=== PATIENT | male | born 1965 | race Two or more races ===

== ENCOUNTER 2023-03-05 09:39 | Inpatient (IN) | payer MEDICAID, OTHER ==
[~2023-03-05] VITALS: Ht 182.9 cm; Wt 69.9 kg
[2023-03-05 10:40] LABS: Basophils # (auto) 0.1 10 ^3/uL (0-0.2); Basophils % (auto) 1.2 % (0.0-2.0); Eosinophils # (auto) 0.1 10 ^3/uL (0-0.8); Eosinophils % (auto) 0.8 % (0.0-7.0); Hematocrit 39.9 % (41.0-53.0); Lymphocytes # (auto) 1.6 10 ^3/uL (0.4-5.4); Lymphocytes % (auto) 23.4 % (10.0-50.0); Mean Corpuscular Hemoglobin 29.9 pg (28.0-32.0); Mean Corpuscular Hgb Conc. 32.5 g/dL (32.0-36.0); Mean Corpuscular Volume 91.9 fL (80.0-100.0); Monocytes # (auto) 0.6 10 ^3/uL (0-1.3); Monocytes % (auto) 9.1 % (0.0-12.0); Neutrophils # (auto) 4.6 10 ^3/uL (1.6-8.6); Neutrophils % (auto) 65.5 % (37.0-80.0); Red Blood Cells 4.34 10^6/uL (4.5-5.90); Red Cell Distribution Width 17.3 % (11.8-14.3); White Blood Cell 6.9 10^3/uL (4.4-10.8)
[2023-03-05 11:14] LABS: Alanine Aminotransferase 13 U/L (7-40); Albumin 3.9 g/dL (3.2-4.8); Alkaline Phosphatase 68 U/L (46-116); Aspartate Aminotransferase 9 U/L (13-40); BUN/Creatinine Ratio 4.4 (10.0-20.0); Bilirubin, Total 0.6 mg/dL (0.2-1.0); Blood Urea Nitrogen 46 mg/dL (9-23); Calcium 9.7 mg/dL (8.5-10.1); Carbon Dioxide 28 mmol/L (20-30); Glucose 82 mg/dL (74-106); Total Protein 6.9 g/dL (5.7-8.2)
[2023-03-05 11:29] LABS: Anion Gap 9 (5-15); Chloride 98 mmol/L (98-107); Sodium 135 mmol/L (136-145)
[2023-03-05 13:02] LABS: Potassium 5.6 mmol/L (3.5-5.1)
[2023-03-05] MEDS ORDERED: SODIUM ZIRCONIUM CYCL 10 GM PAK PO ONE (16:00)
[2023-03-05] MEDS ORDERED: MORPHINE SULFATE INJ 2 MG/ml SYRG IV PRN (16:15)
[2023-03-05] MEDS ORDERED: NITROGLYCERIN 0.4 MG SL TAB SL PRN (16:15)
[2023-03-05] MEDS ORDERED: ONDANSETRON HCL 4 MG/2 ML VIAL IV PRN (16:15)
[2023-03-05] MEDS ORDERED: DOCUSATE SOD 100 MG CAP PO PRN (16:15)
[2023-03-05 20:36] LABS: INR 1.11 (0.9-1.15); Partial Thromboplastin Time 27.3 SEC (24.5-34.5); Prothrombin Time 11.6 sec (9.3-11.8)
[2023-03-05 23:25] VITALS: PULSE 65; RESP 20; O2SAT 95
[2023-03-05] MEDS: ATORVASTATIN 20 MG TAB PO SCH (23:31)
[2023-03-05] MEDS: hydrALAZINE HCL 20 MG/ML VL IV PRN (23:32)
[2023-03-06] VITALS (8 sets, daily range): BP systolic 89–157; BP diastolic 73–89; PULSE 61–88; RESP 16–20; TEMP 97.7–98.4; O2SAT 95–100
[2023-03-06 05:45] LABS: Basophils # (auto) 0.1 10 ^3/uL (0-0.2); Basophils % (auto) 1.2 % (0.0-2.0); Eosinophils # (auto) 0.1 10 ^3/uL (0-0.8); Eosinophils % (auto) 0.6 % (0.0-7.0); Hematocrit 39.1 % (41.0-53.0); Hemoglobin 12.8 g/dL (13.5-17.5); Lymphocytes # (auto) 1.6 10 ^3/uL (0.4-5.4); Lymphocytes % (auto) 19.1 % (10.0-50.0); Mean Corpuscular Hemoglobin 29.6 pg (28.0-32.0); Mean Corpuscular Hgb Conc. 32.7 g/dL (32.0-36.0); Mean Corpuscular Volume 90.5 fL (80.0-100.0); Monocytes # (auto) 0.6 10 ^3/uL (0-1.3); Monocytes % (auto) 7.8 % (0.0-12.0); Neutrophils # (auto) 5.9 10 ^3/uL (1.6-8.6); Neutrophils % (auto) 71.3 % (37.0-80.0); Nucleated Red Blood Cells % 0.1 %; Red Blood Cells 4.32 10^6/uL (4.5-5.90); Red Cell Distribution Width 17.3 % (11.8-14.3); White Blood Cell 8.2 10^3/uL (4.4-10.8)
[2023-03-06 05:57] LABS: Albumin 4.3 g/dL (3.2-4.8); Alkaline Phosphatase 70 U/L (46-116); Anion Gap 11 (5-15); Aspartate Aminotransferase 9 U/L (13-40); BUN/Creatinine Ratio 3.9 (10.0-20.0); Blood Urea Nitrogen 46 mg/dL (9-23); Calcium 9.8 mg/dL (8.7-10.4); Carbon Dioxide 25 mmol/L (20-30); Chloride 98 mmol/L (98-107); Glucose 89 mg/dL (74-106); Potassium 4.5 mmol/L (3.5-5.1); Sodium 134 mmol/L (136-145)
[2023-03-06 05:58] LABS: % Iron Saturation 17.5 % (20-55); Bilirubin, Total 0.5 mg/dL (0.2-1.0); Phosphorus 8.1 mg/dL (2.4-5.1); Total Protein 6.9 g/dL (5.7-8.2)
[2023-03-06 06:01] LABS: Alanine Aminotransferase < 9 U/L (7-40)
[2023-03-06 06:26] LABS: Triglycerides 73 mg/dL (< 150)
[2023-03-06 06:27] LABS: LDL Cholesterol 70 mg/dL (< 100)
[2023-03-06 06:28] LABS: Cholesterol 127 mg/dL (< 200); HDL Cholesterol 46 mg/dL (40-59)
[2023-03-06] MEDS ORDERED: SODIUM CHL 0.9% 1000 ML BAG XX ONE (07:15)
[2023-03-06] MEDS: SEVELAMER 800 MG TAB PO SCH ×3 (08:38→17:40)
[2023-03-06] MEDS: PANTOPRAZOLE 40 MG TAB PO SCH (09:51)
[2023-03-06] MEDS: ASPirin-EC 81 mg tab PO SCH (09:52)
[2023-03-06] MEDS: CLOPIDOGREL BISULFATE 75 MG TAB PO SCH (09:52)
[2023-03-06] MEDS: ATORVASTATIN 20 MG TAB PO SCH (21:11)
[2023-03-07] VITALS (7 sets, daily range): BP systolic 111–175; BP diastolic 78–105; PULSE 60–97; RESP 17–20; TEMP 36.8; O2SAT 97–100
[2023-03-07] MEDS: hydrALAZINE HCL 20 MG/ML VL IV PRN (03:56)
[2023-03-07 06:00] LABS: Basophils # (auto) 0.1 10 ^3/uL (0-0.2); Basophils % (auto) 0.8 % (0.0-2.0); Eosinophils # (auto) 0.1 10 ^3/uL (0-0.8); Eosinophils % (auto) 0.9 % (0.0-7.0); Hematocrit 41.7 % (41.0-53.0); Hemoglobin 13.4 g/dL (13.5-17.5); Lymphocytes # (auto) 1.5 10 ^3/uL (0.4-5.4); Lymphocytes % (auto) 20.2 % (10.0-50.0); Mean Corpuscular Hemoglobin 29.4 pg (28.0-32.0); Mean Corpuscular Hgb Conc. 32.2 g/dL (32.0-36.0); Mean Corpuscular Volume 91.3 fL (80.0-100.0); Monocytes # (auto) 0.7 10 ^3/uL (0-1.3); Monocytes % (auto) 8.9 % (0.0-12.0); Neutrophils # (auto) 5.2 10 ^3/uL (1.6-8.6); Neutrophils % (auto) 69.2 % (37.0-80.0); Red Blood Cells 4.56 10^6/uL (4.5-5.90); Red Cell Distribution Width 17.3 % (11.8-14.3); White Blood Cell 7.5 10^3/uL (4.4-10.8)
[2023-03-07 06:19] LABS: Anion Gap 12 (5-15); Calcium 10.1 mg/dL (8.7-10.4); Carbon Dioxide 25 mmol/L (20-30); Chloride 99 mmol/L (98-107); Potassium 4.6 mmol/L (3.5-5.1); Sodium 136 mmol/L (136-145)
[2023-03-07 06:24] LABS: Glucose 89 mg/dL (74-106)
[2023-03-07 06:25] LABS: BUN/Creatinine Ratio 3.4 (10.0-20.0); Magnesium 2.5 mg/dL (1.6-2.6)
[2023-03-07 06:27] LABS: Phosphorus 6.5 mg/dL (2.4-5.1)
[2023-03-07 07:03] LABS: Blood Urea Nitrogen 35 mg/dL (9-23)
[2023-03-07] MEDS: SEVELAMER 800 MG TAB PO SCH ×3 (08:12→17:22)
[2023-03-07] MEDS: PANTOPRAZOLE 40 MG TAB PO SCH (09:30)
[2023-03-07] MEDS: ASPirin-EC 81 mg tab PO SCH (09:30)
[2023-03-07] MEDS: CLOPIDOGREL BISULFATE 75 MG TAB PO SCH (09:30)
[2023-03-07 12:10] LABS: Hepatitis B Surface Antigen Negative (Negative)
[2023-03-07 12:30] LABS: Hepatitis A Ab IgM Negative
[2023-03-07] MEDS ORDERED: NIFEdipine ER 30 MG TAB PO ONE (12:30)
[2023-03-07 12:33] LABS: Hepatitis B Core IgM Negative
[2023-03-07 13:17] LABS: Hepatitis C Antibody Reactive (Negative)
[2023-03-07] MEDS: LOSARTAN POTASSIUM 50 MG TAB PO SCH (15:00)
[2023-03-07] MEDS: ATORVASTATIN 20 MG TAB PO SCH (22:18)
[2023-03-08 05:27] LABS: Basophils # (auto) 0.1 10 ^3/uL (0-0.2); Basophils % (auto) 0.8 % (0.0-2.0); Eosinophils # (auto) 0.1 10 ^3/uL (0-0.8); Eosinophils % (auto) 1.4 % (0.0-7.0); Hematocrit 39.6 % (41.0-53.0); Lymphocytes # (auto) 1.5 10 ^3/uL (0.4-5.4); Lymphocytes % (auto) 22.7 % (10.0-50.0); Mean Corpuscular Hemoglobin 29.7 pg (28.0-32.0); Mean Corpuscular Hgb Conc. 32.9 g/dL (32.0-36.0); Mean Corpuscular Volume 90.2 fL (80.0-100.0); Monocytes # (auto) 0.6 10 ^3/uL (0-1.3); Neutrophils # (auto) 4.2 10 ^3/uL (1.6-8.6); Neutrophils % (auto) 65.1 % (37.0-80.0); Red Blood Cells 4.39 10^6/uL (4.5-5.90); White Blood Cell 6.4 10^3/uL (4.4-10.8)
[2023-03-08 05:42] LABS: Anion Gap 10 (5-15); Carbon Dioxide 27 mmol/L (20-30); Chloride 98 mmol/L (98-107); Potassium 4.6 mmol/L (3.5-5.1); Sodium 135 mmol/L (136-145)
[2023-03-08 05:43] LABS: Calcium 9.8 mg/dL (8.7-10.4)
[2023-03-08 05:47] VITALS: BP 127/71; PULSE 61; RESP 18; TEMP 98.2; O2SAT 96
[2023-03-08 05:48] LABS: BUN/Creatinine Ratio 3.9 (10.0-20.0); Glucose 84 mg/dL (74-106); Magnesium 2.6 mg/dL (1.6-2.6)
[2023-03-08 05:50] LABS: Phosphorus 6.8 mg/dL (2.4-5.1)
[2023-03-08 06:44] LABS: Blood Urea Nitrogen 48 mg/dL (9-23)
[2023-03-08] MEDS ORDERED: SODIUM CHL 0.9% 1000 ML BAG XX ONE (07:00)
[2023-03-08] MEDS ORDERED: SEVE800T PO (07:19)
[2023-03-08] MEDS: SEVELAMER 800 MG TAB PO SCH ×3 (07:50→17:57)
[2023-03-08 08:00] VITALS: PULSE 67; RESP 18; O2SAT 94
[2023-03-08] MEDS: ASPirin-EC 81 mg tab PO SCH (08:57)
[2023-03-08] MEDS: CLOPIDOGREL BISULFATE 75 MG TAB PO SCH (08:58)
[2023-03-08] MEDS: NIFEdipine ER 30 MG TAB PO SCH (08:58)
[2023-03-08] MEDS: LOSARTAN POTASSIUM 50 MG TAB PO SCH (08:59)
[2023-03-08] MEDS: PANTOPRAZOLE 40 MG TAB PO SCH (08:59)
[2023-03-08 09:00] VITALS: BP 141/87; PULSE 67; RESP 18; TEMP 97.8; O2SAT 94
[2023-03-08 13:00] VITALS: BP 149/90; PULSE 60; RESP 18; TEMP 97.8; O2SAT 96
[2023-03-08 17:00] VITALS: BP 155/94; PULSE 72; RESP 16; TEMP 98; O2SAT 99
[2023-03-08] MEDS: hydrALAZINE HCL 20 MG/ML VL IV PRN (18:24)
[2023-03-08 20:00] VITALS: BP 133/76; PULSE 77; RESP 20; TEMP 98.6; O2SAT 98
[2023-03-08] MEDS: ATORVASTATIN 20 MG TAB PO SCH (21:32)
[2023-03-09 05:18] VITALS: BP 142/80; PULSE 81; RESP 16; TEMP 97.6; O2SAT 98
[2023-03-09 05:26] LABS: Basophils # (auto) 0.1 10 ^3/uL (0-0.2); Basophils % (auto) 0.8 % (0.0-2.0); Eosinophils # (auto) 0.1 10 ^3/uL (0-0.8); Eosinophils % (auto) 1.4 % (0.0-7.0); Hematocrit 41.8 % (41.0-53.0); Hemoglobin 13.8 g/dL (13.5-17.5); Lymphocytes # (auto) 1.3 10 ^3/uL (0.4-5.4); Lymphocytes % (auto) 18.5 % (10.0-50.0); Mean Corpuscular Hemoglobin 29.7 pg (28.0-32.0); Mean Corpuscular Hgb Conc. 33.1 g/dL (32.0-36.0); Mean Corpuscular Volume 89.9 fL (80.0-100.0); Monocytes # (auto) 0.6 10 ^3/uL (0-1.3); Monocytes % (auto) 8.7 % (0.0-12.0); Neutrophils # (auto) 4.8 10 ^3/uL (1.6-8.6); Neutrophils % (auto) 70.6 % (37.0-80.0); Red Blood Cells 4.64 10^6/uL (4.5-5.90); Red Cell Distribution Width 17.1 % (11.8-14.3); White Blood Cell 6.8 10^3/uL (4.4-10.8)
[2023-03-09 05:32] LABS: Chloride 98 mmol/L (98-107); Potassium 5.2 mmol/L (3.5-5.1); Sodium 134 mmol/L (136-145)
[2023-03-09 05:33] LABS: Anion Gap 11 (5-15); Calcium 9.7 mg/dL (8.7-10.4); Carbon Dioxide 25 mmol/L (20-30)
[2023-03-09 05:38] LABS: BUN/Creatinine Ratio 3.8 (10.0-20.0); Blood Urea Nitrogen 54 mg/dL (9-23); Glucose 84 mg/dL (74-106)
[2023-03-09 05:39] LABS: Magnesium 2.7 mg/dL (1.6-2.6)
[2023-03-09 05:40] LABS: Phosphorus 6.8 mg/dL (2.4-5.1)
[2023-03-09 08:00] VITALS: BP 135/83; PULSE 75; RESP 19; TEMP 97.4; O2SAT 96
[2023-03-09] MEDS: SEVELAMER 800 MG TAB PO SCH ×2 (08:00→12:59)
[2023-03-09 09:00] VITALS: BP 135/83; PULSE 75; RESP 19; TEMP 97.4; O2SAT 96
[2023-03-09] MEDS: LOSARTAN POTASSIUM 50 MG TAB PO SCH ×2 (10:00→16:01)
[2023-03-09] MEDS ORDERED: CLOP75TA70 PO (10:30)
[2023-03-09] MEDS ORDERED: LOSA50TA46 PO (10:30)
[2023-03-09] MEDS ORDERED: ASPI-543 PO (10:30)
[2023-03-09] MEDS ORDERED: ATO40T PO (10:30)
[2023-03-09] MEDS ORDERED: NIFE1TAB30 PO (10:30)
[2023-03-09] MEDS ORDERED: SEVE800T PO (10:30)
[2023-03-09] MEDS: CLOPIDOGREL BISULFATE 75 MG TAB PO SCH (12:58)
[2023-03-09] MEDS: ASPirin-EC 81 mg tab PO SCH (12:59)
[2023-03-09] MEDS: PANTOPRAZOLE 40 MG TAB PO SCH (12:59)
[2023-03-09] MEDS: NIFEdipine ER 30 MG TAB PO SCH (12:59)
[2023-03-09 13:00] VITALS: BP 158/101; PULSE 86
[2023-03-09 13:22] VITALS: BP 158/101; TEMP 36.4
[2023-03-09 14:52] LABS: Chloride 100 mmol/L (98-107); Potassium 4.2 mmol/L (3.5-5.1); Sodium 138 mmol/L (136-145)
[2023-03-09 14:53] LABS: Anion Gap 8 (5-15); Carbon Dioxide 30 mmol/L (20-30)
[2023-03-09 14:54] LABS: Calcium 10.1 mg/dL (8.7-10.4)
[2023-03-09 14:58] LABS: Glucose 95 mg/dL (74-106)
[2023-03-09 14:59] LABS: BUN/Creatinine Ratio 3.1 (10.0-20.0); Blood Urea Nitrogen 29 mg/dL (9-23)
[2023-03-09 16:30] VITALS: BP 153/95; PULSE 78
== END 2023-03-09 17:16 | disposition home or self-care (01) | DRG 425 ==
LOC: ER 09:39 → TELE 16:24 → TELE-CENTR 03-06 10:26 → UNDODISIN 03-07 11:06 → CENTRAL 03-07 11:50
PROVIDERS: ADMIT Internal Medicine; ATTEND Student in an Organized Health Care Education/Training Program
PROC: 5A1D70Z Performance of Urinary Filtration, Intermittent, Less than 6 Hours Per Day (ICD-10-PCS; principal; 2023-03-06)
PROC: 5A1D70Z Performance of Urinary Filtration, Intermittent, Less than 6 Hours Per Day (ICD-10-PCS; 2023-03-08)
DX: E87.5 Hyperkalemia (principal); N17.9 Acute kidney failure, unspecified; E83.39 Other disorders of phosphorus metabolism; I12.0 Hypertensive chronic kidney disease with stage 5 chronic kidney disease or end stage renal disease; N18.6 End stage renal disease; B19.20 Unspecified viral hepatitis C without hepatic coma; K59.00 Constipation, unspecified; H54.62 Unqualified visual loss, left eye, normal vision right eye; Z60.2 Problems related to living alone; Z99.2 Dependence on renal dialysis; Z91.199 Patient's noncompliance with other medical treatment and regimen due to unspecified reason; Z86.73 Personal history of transient ischemic attack (TIA), and cerebral infarction without residual deficits
CPT/HCPCS: 36415; 71045; 80048; 80053; 80061; 80074; 82728; 83036; 83540; 83550; 83735; 83970; 84100; 84443; 84484; 85025; 85610; 85730; 87081; 90935; G0378

== ENCOUNTER 2023-05-14 09:43 | Inpatient (IN) | payer MEDICAID ==
[~2023-05-14] VITALS: Ht 182.9 cm; Wt 74.0 kg
[2023-05-14] VITALS (11 sets, daily range): BP systolic 105–138; BP diastolic 61–79; PULSE 75–91; RESP 14–20; TEMP 98–98.5; O2SAT 96–98
[~2023-05-14 09:43] MED LIST: ASPI-543 PO; ATO40T PO; CLOP75TA70 PO; LOSA50TA46 PO; NIFE1TAB30 PO; SEVE800T PO
[2023-05-14] MEDS ORDERED: PANTOPRAZOLE 40 MG/10 ML VIAL INJ IV ONE ×2 (11:00→14:15)
[2023-05-14] MEDS ORDERED: SODIUM CHLORIDE 0.9% 1,000 ML IV ONE (11:00)
[2023-05-14 11:01] LABS: White Blood Cell 6.9 10^3/uL (4.4-10.8)
[2023-05-14 11:02] LABS: Mean Corpuscular Hgb Conc. 32.2 g/dL (32.0-36.0)
[2023-05-14 11:20] LABS: Basophils # (auto) 0 10 ^3/uL (0-0.2); Basophils % (auto) 0.7 % (0.0-2.0); Eosinophils # (auto) 0.1 10 ^3/uL (0-0.8); Eosinophils % (auto) 0.8 % (0.0-7.0); Hematocrit 16.8 % (41.0-53.0); Lymphocytes # (auto) 0.9 10 ^3/uL (0.4-5.4); Lymphocytes % (auto) 13.6 % (10.0-50.0); Mean Corpuscular Hemoglobin 29.1 pg (28.0-32.0); Mean Corpuscular Volume 90.3 fL (80.0-100.0); Monocytes # (auto) 0.6 10 ^3/uL (0-1.3); Monocytes % (auto) 8.2 % (0.0-12.0); Neutrophils # (auto) 5.3 10 ^3/uL (1.6-8.6); Neutrophils % (auto) 76.7 % (37.0-80.0); Red Blood Cells 1.86 10^6/uL (4.5-5.90); Red Cell Distribution Width 16.1 % (11.8-14.3)
[2023-05-14 11:24] LABS: Albumin 3.7 g/dL (3.2-4.8); Alkaline Phosphatase 83 U/L (46-116); Anion Gap 6 (5-15); Aspartate Aminotransferase < 8 U/L (13-40); BUN/Creatinine Ratio 5.8 (10.0-20.0); Blood Urea Nitrogen 36 mg/dL (9-23); Calcium 9.1 mg/dL (8.7-10.4); Carbon Dioxide 31 mmol/L (20-30); Chloride 103 mmol/L (98-107); Glucose 96 mg/dL (74-106); Potassium 4.8 mmol/L (3.5-5.1); Sodium 140 mmol/L (136-145)
[2023-05-14 11:25] LABS: Alanine Aminotransferase < 9 U/L (7-40); Bilirubin, Total 0.5 mg/dL (0.2-1.0); Total Protein 6.2 g/dL (5.7-8.2)
[2023-05-14 11:33] LABS: Hemoglobin 5.4 g/dL (13.5-17.5)
[2023-05-14 12:03] LABS: INR 1.09 (0.9-1.15); Partial Thromboplastin Time 22.7 SEC (24.5-34.5); Prothrombin Time 11.4 sec (9.3-11.8)
[2023-05-14] MEDS ORDERED: MORPHINE SULFATE INJ 2 MG/ml SYRG IV PRN (14:15)
[2023-05-14] MEDS ORDERED: PANTOPRAZOLE 40mg/50ML NS AE 50 ML IV ONE (14:15)
[2023-05-14] MEDS ORDERED: ONDANSETRON HCL 4 MG/2 ML VIAL IV PRN (14:15)
[2023-05-14] MEDS: SEVELAMER 800 MG TAB PO SCH (17:57)
[2023-05-14] MEDS ORDERED: PATIENTS OWN MEDICATION (Atorvastatin Calcium (Lipitor) 1 TAB) PO SCH (18:00)
[2023-05-14] MEDS: ATORVASTATIN 20 MG TAB PO SCH (22:21)
[2023-05-14] MEDS: PANTOPRAZOLE 40mg/50ML NS AE 50 ML IV SCH ×2 (23:17→23:18)
[2023-05-15] VITALS (17 sets, daily range): BP systolic 117–146; BP diastolic 50–96; PULSE 63–77; RESP 14–98; TEMP 97.4–98.6; O2SAT 95–100
[2023-05-15 02:40] LABS: Hematocrit 25.3 % (41.0-53.0); Hemoglobin 8.3 g/dL (13.5-17.5)
[2023-05-15] MEDS: PANTOPRAZOLE 40mg/50ML NS AE 50 ML IV SCH ×2 (04:48→09:27)
[2023-05-15 07:27] LABS: Basophils # (auto) 0 10 ^3/uL (0-0.2); Basophils % (auto) 0.7 % (0.0-2.0); Eosinophils # (auto) 0.1 10 ^3/uL (0-0.8); Eosinophils % (auto) 2.5 % (0.0-7.0); Hematocrit 22.2 % (41.0-53.0); Hemoglobin 7.4 g/dL (13.5-17.5); Lymphocytes % (auto) 18.7 % (10.0-50.0); Mean Corpuscular Hemoglobin 29.5 pg (28.0-32.0); Mean Corpuscular Hgb Conc. 33.3 g/dL (32.0-36.0); Mean Corpuscular Volume 88.8 fL (80.0-100.0); Monocytes # (auto) 0.5 10 ^3/uL (0-1.3); Monocytes % (auto) 10.1 % (0.0-12.0); Neutrophils # (auto) 3.5 10 ^3/uL (1.6-8.6); Red Cell Distribution Width 14.7 % (11.8-14.3); White Blood Cell 5.1 10^3/uL (4.4-10.8)
[2023-05-15 07:41] LABS: Albumin 3.5 g/dL (3.2-4.8); Alkaline Phosphatase 82 U/L (46-116); Anion Gap 8 (5-15); Aspartate Aminotransferase 14 U/L (13-40); BUN/Creatinine Ratio 6.3 (10.0-20.0); Calcium 9.7 mg/dL (8.5-10.1); Carbon Dioxide 28 mmol/L (20-30); Chloride 104 mmol/L (98-107); Glucose 82 mg/dL (74-106); Potassium 5.1 mmol/L (3.5-5.1); Sodium 140 mmol/L (136-145)
[2023-05-15 07:42] LABS: Bilirubin, Total 1.1 mg/dL (0.2-1.0); Total Protein 5.7 g/dL (5.7-8.2)
[2023-05-15 07:45] LABS: Alanine Aminotransferase < 9 U/L (7-40); Blood Urea Nitrogen 49 mg/dL (9-23)
[2023-05-15] MEDS: SEVELAMER 800 MG TAB PO SCH ×3 (08:00→18:47)
[2023-05-15] MEDS ORDERED: SODIUM CHLORIDE LOCK 10 ML ONE (09:19)
[2023-05-15] MEDS ORDERED: MIDAZOLAM HCL 5 MG/ML-1ML VIAL ONE (09:19)
[2023-05-15] MEDS ORDERED: LIDOCAINE VISCOUS 2% 15ML UD ONE (09:19)
[2023-05-15] MEDS ORDERED: fentaNYL CITRATE 100 MCG/2 ML VL ONE (09:20)
[2023-05-15] MEDS ORDERED: diphenhdrAMINE HCL 50 MG/1 ML VL ONE (09:20)
[2023-05-15] MEDS ORDERED: CINA30TA2 PO (09:36)
[2023-05-15] MEDS ORDERED: POTA10TA51 PO (09:36)
[2023-05-15] MEDS ORDERED: PATIENTS OWN MEDICATION (Nifedipine (Nifedipine Er) 1 TAB) PO SCH (10:00)
[2023-05-15] MEDS ORDERED: LOSARTAN POTASSIUM 50 MG TAB PO SCH (10:00)
[2023-05-15] MEDS ORDERED: hydrALAZINE HCL 20 MG/ML VL IV PRN (11:00)
[2023-05-15] MEDS ORDERED: SODIUM CHL 0.9% 1000 ML BAG XX ONE (12:15)
[2023-05-15 12:53] LABS: Hemoglobin 7.2 g/dL (13.5-17.5)
[2023-05-15 12:57] LABS: Hematocrit 21.7 % (41.0-53.0)
[2023-05-15 19:23] LABS: Hematocrit 26.4 % (41.0-53.0); Hemoglobin 8.9 g/dL (13.5-17.5)
[2023-05-15] MEDS: ATORVASTATIN 20 MG TAB PO SCH (20:56)
[2023-05-15] MEDS ORDERED: EPOETIN ALFA-EPBX 10,000 UNIT/1ML VIAL SC ONE (21:00)
[2023-05-16] VITALS (7 sets, daily range): BP systolic 120–148; BP diastolic 65–85; PULSE 65–78; RESP 16–20; TEMP 97.9–98.8; O2SAT 96–100
[2023-05-16 05:45] LABS: Basophils # (auto) 0.1 10 ^3/uL (0-0.2); Basophils % (auto) 0.9 % (0.0-2.0); Eosinophils # (auto) 0.1 10 ^3/uL (0-0.8); Hematocrit 28.1 % (41.0-53.0); Hemoglobin 9.4 g/dL (13.5-17.5); Lymphocytes # (auto) 0.9 10 ^3/uL (0.4-5.4); Lymphocytes % (auto) 14.3 % (10.0-50.0); Mean Corpuscular Hemoglobin 30.4 pg (28.0-32.0); Mean Corpuscular Hgb Conc. 33.4 g/dL (32.0-36.0); Mean Corpuscular Volume 91.2 fL (80.0-100.0); Monocytes # (auto) 0.5 10 ^3/uL (0-1.3); Monocytes % (auto) 8.4 % (0.0-12.0); Neutrophils # (auto) 4.5 10 ^3/uL (1.6-8.6); Neutrophils % (auto) 74.4 % (37.0-80.0); Nucleated Red Blood Cells % 0.1 %; Red Blood Cells 3.09 10^6/uL (4.5-5.90); Red Cell Distribution Width 15.4 % (11.8-14.3); White Blood Cell 6.1 10^3/uL (4.4-10.8)
[2023-05-16 06:00] LABS: INR 1.11 (0.9-1.15); Partial Thromboplastin Time 21.5 SEC (24.5-34.5); Prothrombin Time 11.6 sec (9.3-11.8)
[2023-05-16 06:02] LABS: Albumin 3.5 g/dL (3.2-4.8); Alkaline Phosphatase 87 U/L (46-116); Anion Gap 8 (5-15); Aspartate Aminotransferase 10 U/L (13-40); BUN/Creatinine Ratio 4.8 (10.0-20.0); Bilirubin, Total 1.5 mg/dL (0.2-1.0); Calcium 9.5 mg/dL (8.5-10.1); Carbon Dioxide 31 mmol/L (20-30); Chloride 102 mmol/L (98-107); Glucose 89 mg/dL (74-106); Potassium 4.5 mmol/L (3.5-5.1); Sodium 141 mmol/L (136-145); Total Protein 5.9 g/dL (5.7-8.2)
[2023-05-16 06:26] LABS: Alanine Aminotransferase < 9 U/L (7-40); Blood Urea Nitrogen 30 mg/dL (9-23)
[2023-05-16] MEDS: SEVELAMER 800 MG TAB PO SCH ×3 (08:04→18:54)
[2023-05-16] MEDS: PANTOPRAZOLE 40 MG TAB PO SCH (10:20)
[2023-05-16] MEDS: ATORVASTATIN 20 MG TAB PO SCH (21:29)
[2023-05-17 05:00] VITALS: BP 144/99; PULSE 70; RESP 18; TEMP 97.7; O2SAT 96
[2023-05-17] MEDS ORDERED: SODIUM CHL 0.9% 1000 ML BAG XX ONE (07:00)
[2023-05-17] MEDS: SEVELAMER 800 MG TAB PO SCH ×3 (07:56→18:49)
[2023-05-17 08:00] VITALS: PULSE 59
[2023-05-17 08:02] VITALS: PULSE 74; RESP 16
[2023-05-17 08:59] VITALS: BP 121/70; PULSE 88; RESP 18; TEMP 98.4; O2SAT 95
[2023-05-17 10:44] LABS: Basophils # (auto) 0.1 10 ^3/uL (0-0.2); Basophils % (auto) 0.9 % (0.0-2.0); Eosinophils # (auto) 0.2 10 ^3/uL (0-0.8); Eosinophils % (auto) 2.8 % (0.0-7.0); Hemoglobin 9.1 g/dL (13.5-17.5); Lymphocytes % (auto) 15.9 % (10.0-50.0); Mean Corpuscular Hemoglobin 29.7 pg (28.0-32.0); Mean Corpuscular Hgb Conc. 32.4 g/dL (32.0-36.0); Mean Corpuscular Volume 91.5 fL (80.0-100.0); Monocytes # (auto) 0.6 10 ^3/uL (0-1.3); Monocytes % (auto) 9.1 % (0.0-12.0); Neutrophils # (auto) 4.5 10 ^3/uL (1.6-8.6); Neutrophils % (auto) 71.3 % (37.0-80.0); Nucleated Red Blood Cells % 0.1 %; Red Blood Cells 3.06 10^6/uL (4.5-5.90); White Blood Cell 6.3 10^3/uL (4.4-10.8)
[2023-05-17 10:56] LABS: Calcium 8.9 mg/dL (8.5-10.1); Chloride 100 mmol/L (98-107); Potassium 4.3 mmol/L (3.5-5.1); Sodium 138 mmol/L (136-145)
[2023-05-17 10:57] LABS: Anion Gap 8 (5-15); Carbon Dioxide 30 mmol/L (20-30)
[2023-05-17 11:02] LABS: BUN/Creatinine Ratio 3.9 (10.0-20.0); Blood Urea Nitrogen 34 mg/dL (9-23); Glucose 91 mg/dL (74-106)
[2023-05-17] MEDS: PANTOPRAZOLE 40 MG TAB PO SCH (12:01)
[2023-05-17 13:28] VITALS: BP 139/75; PULSE 72; RESP 19; TEMP 98; O2SAT 95
[2023-05-17 16:48] VITALS: BP 150/78; PULSE 69; RESP 18; TEMP 97.7; O2SAT 96
[2023-05-17] MEDS ORDERED: PANT40TA2 PO ×2 (18:11→18:37)
[2023-05-17] MEDS ORDERED: FER325T PO (18:37)
[2023-05-17] MEDS ORDERED: EPOETIN ALFA-EPBX 10,000 UNIT/1ML VIAL SC ONE (21:00)
== END 2023-05-17 19:58 | disposition home or self-care (01) | DRG 241 ==
LOC: ER 09:43 → TELE 14:13 → TELE-WESTW 05-15 08:28
PROVIDERS: ADMIT Nurse Practitioner Family; ATTEND Internal Medicine
PROC: 30233N1 Transfusion of Nonautologous Red Blood Cells into Peripheral Vein, Percutaneous Approach (ICD-10-PCS; 2023-05-14)
PROC: 0DB68ZX Excision of Stomach, Via Natural or Artificial Opening Endoscopic, Diagnostic (ICD-10-PCS; 2023-05-15)
PROC: 0DB48ZX Excision of Esophagogastric Junction, Via Natural or Artificial Opening Endoscopic, Diagnostic (ICD-10-PCS; 2023-05-15)
PROC: 30233K1 Transfusion of Nonautologous Frozen Plasma into Peripheral Vein, Percutaneous Approach (ICD-10-PCS; 2023-05-15)
PROC: 5A1D70Z Performance of Urinary Filtration, Intermittent, Less than 6 Hours Per Day (ICD-10-PCS; 2023-05-15)
PROC: 0DB98ZX Excision of Duodenum, Via Natural or Artificial Opening Endoscopic, Diagnostic (ICD-10-PCS; principal; 2023-05-15 16:12)
PROC: 5A1D70Z Performance of Urinary Filtration, Intermittent, Less than 6 Hours Per Day (ICD-10-PCS; 2023-05-17)
DX: K29.71 Gastritis, unspecified, with bleeding (principal); I12.0 Hypertensive chronic kidney disease with stage 5 chronic kidney disease or end stage renal disease; D62 Acute posthemorrhagic anemia; E11.22 Type 2 diabetes mellitus with diabetic chronic kidney disease; K22.70 Barrett's esophagus without dysplasia; K44.9 Diaphragmatic hernia without obstruction or gangrene; N18.6 End stage renal disease; E78.5 Hyperlipidemia, unspecified; E87.5 Hyperkalemia; Z79.82 Long term (current) use of aspirin; Z99.2 Dependence on renal dialysis; Z80.0 Family history of malignant neoplasm of digestive organs; Z83.3 Family history of diabetes mellitus; Z87.11 Personal history of peptic ulcer disease
CPT/HCPCS: 36415; 43239; 71045; 74176; 80048; 80053; 84484; 85014; 85018; 85025; 85610; 85730; 86850; 86900; 86901; 86920; 87081; 90935; 93306; 96361; 96374; C9113; G0378; J2250

== ENCOUNTER 2023-07-25 09:48 | Inpatient (IN) | payer MEDICAID ==
[~2023-07-25] VITALS: Ht 182.9 cm; Wt 75.9 kg
[~2023-07-25 09:48] MED LIST changes: -ASPI-543 PO; +CINA30TA2 PO; +FER325T PO; -LOSA50TA46 PO; +PANT40TA2 PO
[2023-07-25 10:37] LABS: Basophils # (auto) 0 10 ^3/uL (0-0.2); Basophils % (auto) 0.1 % (0.0-2.0); Eosinophils # (auto) 0 10 ^3/uL (0-0.8); Eosinophils % (auto) 0.3 % (0.0-7.0); Hematocrit 44.1 % (41.0-53.0); Lymphocytes # (auto) 0.2 10 ^3/uL (0.4-5.4); Lymphocytes % (auto) 2.8 % (10.0-50.0); Mean Corpuscular Hemoglobin 28.9 pg (28.0-32.0); Mean Corpuscular Hgb Conc. 31.8 g/dL (32.0-36.0); Monocytes # (auto) 0.4 10 ^3/uL (0-1.3); Monocytes % (auto) 4.7 % (0.0-12.0); Neutrophils # (auto) 7.1 10 ^3/uL (1.6-8.6); Neutrophils % (auto) 92.1 % (37.0-80.0); Red Blood Cells 4.85 10^6/uL (4.5-5.90); Red Cell Distribution Width 23.9 % (11.8-14.3); White Blood Cell 7.7 10^3/uL (4.4-10.8)
[2023-07-25 10:57] LABS: Alanine Aminotransferase 36 U/L (7-40); Albumin 3.6 g/dL (3.2-4.8); Alkaline Phosphatase 192 U/L (46-116); Anion Gap 10 (5-15); Aspartate Aminotransferase 78 U/L (13-40); BUN/Creatinine Ratio 3.9 (10.0-20.0); Blood Urea Nitrogen 28 mg/dL (9-23); Calcium 8.6 mg/dL (8.5-10.1); Carbon Dioxide 25 mmol/L (20-30); Chloride 93 mmol/L (98-107); Glucose 77 mg/dL (74-106); Potassium 4.3 mmol/L (3.5-5.1); Sodium 128 mmol/L (136-145)
[2023-07-25 11:13] LABS: Lipase 50 U/L (12-53)
[2023-07-25 11:26] VITALS: PULSE 111; RESP 20; O2SAT 93
[2023-07-25] MEDS: PIPERACILLIN-TAZOB 3.375GM 100 ML IV ONE (12:45)
[2023-07-25] MEDS ORDERED: ACETAMINOPHEN 325 MG TAB PO PRN (16:00)
[2023-07-25] MEDS ORDERED: ONDANSETRON HCL 4 MG/2 ML VIAL IV PRN (16:00)
[2023-07-25] MEDS ORDERED: NITROGLYCERIN 0.4 MG SL TAB SL PRN (16:00)
[2023-07-25] MEDS ORDERED: DOCUSATE SOD 100 MG CAP PO PRN (16:00)
[2023-07-25] MEDS ORDERED: MORPHINE SULFATE INJ 2 MG/ml SYRG IV PRN (16:00)
[2023-07-25] MEDS ORDERED: PATIENTS OWN MEDICATION (Atorvastatin Calcium (Lipitor) 1 TAB) PO SCH (18:00)
[2023-07-25] MEDS: SEVELAMER 800 MG TAB PO SCH (19:00)
[2023-07-25] MEDS: HYDROcodone-ACET 5/325MG TAB PO PRN (21:17)
[2023-07-25] MEDS: SODIUM CHLOR 0.9% PF (SALINE LOCK) 10ML VIAL/SYR IV SCH (22:00)
[2023-07-25] MEDS: ATORVASTATIN 20 MG TAB PO SCH (22:00)
[2023-07-26 03:20] VITALS: PULSE 99; RESP 20; O2SAT 96
[2023-07-26 05:05] LABS: Basophils # (auto) 0 10 ^3/uL (0-0.2); Basophils % (auto) 0.2 % (0.0-2.0); Eosinophils # (auto) 0.1 10 ^3/uL (0-0.8); Eosinophils % (auto) 1.4 % (0.0-7.0); Hemoglobin 13.9 g/dL (13.5-17.5); Lymphocytes # (auto) 0.2 10 ^3/uL (0.4-5.4); Mean Corpuscular Hemoglobin 28.8 pg (28.0-32.0); Mean Corpuscular Hgb Conc. 32.3 g/dL (32.0-36.0); Mean Corpuscular Volume 89.1 fL (80.0-100.0); Monocytes # (auto) 0.5 10 ^3/uL (0-1.3); Monocytes % (auto) 6.8 % (0.0-12.0); Neutrophils # (auto) 6.9 10 ^3/uL (1.6-8.6); Neutrophils % (auto) 88.6 % (37.0-80.0); Red Blood Cells 4.83 10^6/uL (4.5-5.90); White Blood Cell 7.8 10^3/uL (4.4-10.8)
[2023-07-26 05:06] LABS: Alanine Aminotransferase 46 U/L (7-40); Albumin 3.4 g/dL (3.2-4.8); Alkaline Phosphatase 197 U/L (46-116); Anion Gap 10 (5-15); Aspartate Aminotransferase 89 U/L (13-40); BUN/Creatinine Ratio 3.5 (10.0-20.0); Bilirubin, Total 1.8 mg/dL (0.2-1.0); Blood Urea Nitrogen 30 mg/dL (9-23); Calcium 8.1 mg/dL (8.7-10.4); Carbon Dioxide 22 mmol/L (20-30); Chloride 94 mmol/L (98-107); Glucose 89 mg/dL (74-106); Sodium 126 mmol/L (136-145)
[2023-07-26 05:10] LABS: Red Cell Distribution Width 24.5 % (11.8-14.3)
[2023-07-26 07:30] VITALS: PULSE 91; RESP 24; O2SAT 94
[2023-07-26] MEDS: FERROUS SULFATE 325mg EC TAB PO SCH (09:44)
[2023-07-26] MEDS: PANTOPRAZOLE 40 MG TAB PO SCH (09:44)
[2023-07-26] MEDS: CLOPIDOGREL BISULFATE 75 MG TAB PO SCH (09:44)
[2023-07-26] MEDS: CINACALCET HYDROCHLORIDE 30 MG TAB PO SCH (10:37)
[2023-07-26] MEDS: cefTRIAXone 1GM/50ML D5W 50 ML IV ONE (16:40)
[2023-07-26 20:00] VITALS: PULSE 106; O2SAT 96
[2023-07-26 21:38] VITALS: BP 154/84; PULSE 112; RESP 20; TEMP 97.9; O2SAT 92
[2023-07-27] VITALS (7 sets, daily range): BP systolic 104–135; BP diastolic 65–90; PULSE 82–106; RESP 14–17; TEMP 97.8–98.3; O2SAT 93–99
[2023-07-27 06:13] LABS: Basophils # (auto) 0 10 ^3/uL (0-0.2); Eosinophils # (auto) 0.1 10 ^3/uL (0-0.8); Lymphocytes # (auto) 0.3 10 ^3/uL (0.4-5.4); Monocytes # (auto) 0.8 10 ^3/uL (0-1.3)
[2023-07-27 06:16] LABS: Basophils % (auto) 0.1 % (0.0-2.0); Eosinophils % (auto) 0.9 % (0.0-7.0); Hematocrit 39.2 % (41.0-53.0); Lymphocytes % (auto) 3.1 % (10.0-50.0); Mean Corpuscular Hemoglobin 29.4 pg (28.0-32.0); Mean Corpuscular Hgb Conc. 33.2 g/dL (32.0-36.0); Mean Corpuscular Volume 88.5 fL (80.0-100.0); Monocytes % (auto) 9.5 % (0.0-12.0); Neutrophils # (auto) 7.1 10 ^3/uL (1.6-8.6); Neutrophils % (auto) 86.4 % (37.0-80.0); Red Blood Cells 4.43 10^6/uL (4.5-5.90); White Blood Cell 8.2 10^3/uL (4.4-10.8)
[2023-07-27 06:39] LABS: Red Cell Distribution Width 23.6 % (11.8-14.3)
[2023-07-27 06:50] LABS: Alanine Aminotransferase 41 U/L (7-40); Albumin 3.1 g/dL (3.2-4.8); Alkaline Phosphatase 173 U/L (46-116); Anion Gap 12 (5-15); Aspartate Aminotransferase 70 U/L (13-40); BUN/Creatinine Ratio 5.6 (10.0-20.0); Calcium 7.8 mg/dL (8.7-10.4); Carbon Dioxide 22 mmol/L (20-30); Chloride 93 mmol/L (98-107); Glucose 97 mg/dL (74-106); Potassium 4.5 mmol/L (3.5-5.1); Sodium 127 mmol/L (136-145)
[2023-07-27 06:51] LABS: Blood Urea Nitrogen 55 mg/dL (9-23); Total Protein 6.3 g/dL (5.7-8.2)
[2023-07-27] MEDS: cefTRIAXone 1GM/50ML D5W 50 ML IV SCH (09:17)
[2023-07-28 05:00] VITALS: BP 103/63; PULSE 82; RESP 20; TEMP 97.6; O2SAT 95
[2023-07-28 08:00] VITALS: PULSE 91; PULSE 99; RESP 18; O2SAT 93
[2023-07-28 09:22] LABS: Hematocrit 42.1 % (41.0-53.0); Hemoglobin 13.2 g/dL (13.5-17.5); Mean Corpuscular Hemoglobin 28.2 pg (28.0-32.0); Mean Corpuscular Hgb Conc. 31.4 g/dL (32.0-36.0); Mean Corpuscular Volume 89.8 fL (80.0-100.0); Red Blood Cells 4.69 10^6/uL (4.5-5.90); White Blood Cell 10.2 10^3/uL (4.4-10.8)
[2023-07-28 09:23] LABS: Red Cell Distribution Width 23.5 % (11.8-14.3)
[2023-07-28 09:24] LABS: Basophils % (manual) 0 (0.0-2.0); Blast Cells 0; Metamyelocytes % 0; Myelocytes % 0; Promyelocytes % 0; Reactive Lymphocytes 0
[2023-07-28 09:31] LABS: Alanine Aminotransferase 39 U/L (7-40); Albumin 3.1 g/dL (3.2-4.8); Alkaline Phosphatase 189 U/L (46-116); Anion Gap 12 (5-15); Aspartate Aminotransferase 75 U/L (13-40); Calcium 8.1 mg/dL (8.5-10.1); Carbon Dioxide 22 mmol/L (20-30); Chloride 95 mmol/L (98-107); Glucose 68 mg/dL (74-106); Sodium 129 mmol/L (136-145)
[2023-07-28 09:33] LABS: Bilirubin, Total 2.6 mg/dL (0.2-1.0)
[2023-07-28 09:41] LABS: Blood Urea Nitrogen 66 mg/dL (9-23)
[2023-07-28 09:45] LABS: Anisocytosis Moderate; Band Neutrophils % (manual) 9; Eosinophils % (manual) 2 (0-7); Hypochromia Slight; Lymphocytes % (manual) 7 (10.0-50.0); Monocytes % (manual) 9 (0-12); Platelet Estimate Decreased
[2023-07-28 09:46] LABS: Polychromasia Slight
[2023-07-28 09:47] LABS: Tear Drop Cells FEW
[2023-07-28] MEDS ORDERED: SODIUM CHL 0.9% 1000 ML BAG XX ONE (12:15)
[2023-07-28 13:01] VITALS: BP 99/71; PULSE 92; RESP 18; TEMP 98; O2SAT 93
[2023-07-28] MEDS ORDERED: CEFEPIME 1GM/ 50ML 50 ML IV SCH (15:00)
[2023-07-28] MEDS: HYDROcodone-ACET 7.5/325MG TAB PO PRN (17:43)
[2023-07-28 20:00] VITALS: PULSE 99; O2SAT 95
[2023-07-28 22:00] VITALS: BP 103/60; PULSE 94; RESP 18; TEMP 98.4; O2SAT 94
[2023-07-29 05:00] VITALS: BP 106/61; PULSE 69; RESP 18; TEMP 98.1; O2SAT 93
[2023-07-29 07:37] LABS: Hemoglobin 13.1 g/dL (13.5-17.5); Mean Corpuscular Hemoglobin 28.4 pg (28.0-32.0); Mean Corpuscular Hgb Conc. 31.9 g/dL (32.0-36.0); Mean Corpuscular Volume 89.1 fL (80.0-100.0); White Blood Cell 9.8 10^3/uL (4.4-10.8)
[2023-07-29 08:00] VITALS: BP 98/61; PULSE 87; PULSE 88; RESP 19; TEMP 98.5; O2SAT 94
[2023-07-29 08:04] LABS: Red Cell Distribution Width 24.2 % (11.8-14.3)
[2023-07-29 08:05] LABS: Basophils % (manual) 0 (0.0-2.0); Blast Cells 0; Metamyelocytes % 0; Myelocytes % 0; Promyelocytes % 0
[2023-07-29 08:10] LABS: Alanine Aminotransferase 35 U/L (7-40); Alkaline Phosphatase 294 U/L (46-116); Anion Gap 9 (5-15); Calcium 8.1 mg/dL (8.5-10.1); Carbon Dioxide 25 mmol/L (20-30); Chloride 97 mmol/L (98-107); Sodium 131 mmol/L (136-145)
[2023-07-29 08:11] LABS: Glucose 67 mg/dL (74-106)
[2023-07-29 08:12] LABS: Aspartate Aminotransferase 90 U/L (13-40); BUN/Creatinine Ratio 4.4 (10.0-20.0)
[2023-07-29 08:17] LABS: Blood Urea Nitrogen 35 mg/dL (9-23)
[2023-07-29 09:08] LABS: Magnesium 2.4 mg/dL (1.6-2.6)
[2023-07-29] MEDS: cefTRIAXone 1GM/50ML D5W 50 ML IV SCH (09:48)
[2023-07-29 10:09] LABS: Band Neutrophils % (manual) 8; Eosinophils % (manual) 2 (0-7); Lymphocytes % (manual) 6 (10.0-50.0); Monocytes % (manual) 10 (0-12); Reactive Lymphocytes 1
[2023-07-29 10:11] LABS: Anisocytosis Moderate; Hypochromia Slight; Platelet Estimate Decreased; Tear Drop Cells FEW
[2023-07-29 11:13] LABS: Base Excess 1.5 mmol/L (-2.0-2.0)
[2023-07-29 13:00] VITALS: BP 98/61; PULSE 87; RESP 19; TEMP 98.5; O2SAT 94
[2023-07-29] MEDS ORDERED: LEVO500T91 PO (14:06)
[2023-07-29 15:20] VITALS: BP 98/61; PULSE 87; RESP 19; TEMP 36.9; O2SAT 98
[2023-07-30] MEDS ORDERED: SODIUM CHL 0.9% 1000 ML BAG XX ONE (07:00)
== END 2023-07-29 22:10 | disposition home or self-care (01) | DRG 426 ==
LOC: ER 09:48 → TELE 16:02 → TELE-WESTW 07-26 18:45
PROVIDERS: ADMIT Internal Medicine Pulmonary Disease; ATTEND Internal Medicine Pulmonary Disease
PROC: 3E1M39Z Irrigation of Peritoneal Cavity using Dialysate, Percutaneous Approach (ICD-10-PCS; principal; 2023-07-28)
DX: E22.2 Syndrome of inappropriate secretion of antidiuretic hormone (principal); R78.81 Bacteremia; N25.81 Secondary hyperparathyroidism of renal origin; Q61.3 Polycystic kidney, unspecified; N18.6 End stage renal disease; I15.1 Hypertension secondary to other renal disorders; I69.354 Hemiplegia and hemiparesis following cerebral infarction affecting left non-dominant side; R10.9 Unspecified abdominal pain; Z99.2 Dependence on renal dialysis; E78.5 Hyperlipidemia, unspecified; D64.9 Anemia, unspecified; Z79.899 Other long term (current) drug therapy; Z79.02 Long term (current) use of antithrombotics/antiplatelets; Z83.3 Family history of diabetes mellitus; Z80.0 Family history of malignant neoplasm of digestive organs
CPT/HCPCS: 36415; 36600; 71045; 74176; 80053; 82805; 82962; 83605; 83690; 83735; 83930; 85007; 85025; 85027; 87040; 87077; 87186; 87340; 90935; 96365; 97110; 97116; 97163; 97530; 99291; G0378

== ENCOUNTER 2023-07-31 11:23 | Inpatient (IN) | payer MEDICAID ==
[~2023-07-31] VITALS: Ht 182.9 cm; Wt 78.0 kg
[~2023-07-31 11:23] MED LIST changes: +LEVO500T91 PO
[2023-07-31 12:46] LABS: Basophils # (auto) 0 10 ^3/uL (0-0.2); Basophils % (auto) 0.2 % (0.0-2.0); Eosinophils # (auto) 0.1 10 ^3/uL (0-0.8); Eosinophils % (auto) 0.3 % (0.0-7.0); Hematocrit 37.3 % (41.0-53.0); Hemoglobin 12.2 g/dL (13.5-17.5); Lymphocytes # (auto) 0.5 10 ^3/uL (0.4-5.4); Lymphocytes % (auto) 3.3 % (10.0-50.0); Mean Corpuscular Hemoglobin 28.7 pg (28.0-32.0); Mean Corpuscular Hgb Conc. 32.6 g/dL (32.0-36.0); Mean Corpuscular Volume 88.1 fL (80.0-100.0); Monocytes # (auto) 0.6 10 ^3/uL (0-1.3); Monocytes % (auto) 3.7 % (0.0-12.0); Neutrophils # (auto) 14.9 10 ^3/uL (1.6-8.6); Neutrophils % (auto) 92.5 % (37.0-80.0); Nucleated Red Blood Cells % 0.2 %; Red Blood Cells 4.24 10^6/uL (4.5-5.90); White Blood Cell 16.1 10^3/uL (4.4-10.8)
[2023-07-31 12:47] LABS: Red Cell Distribution Width 24.3 % (11.8-14.3)
[2023-07-31 13:30] LABS: Lactic Acid w/Reflex 2.1 mmol/L (0.4-2.0)
[2023-07-31 13:33] LABS: Alanine Aminotransferase 20 U/L (7-40); Alkaline Phosphatase 502 U/L (46-116); Anion Gap 10 (5-15); Aspartate Aminotransferase 85 U/L (13-40); BUN/Creatinine Ratio 6.6 (10.0-20.0); Blood Urea Nitrogen 70 mg/dL (9-23); Calcium 6.7 mg/dL (8.7-10.4); Carbon Dioxide 23 mmol/L (20-30); Chloride 96 mmol/L (98-107); Glucose 82 mg/dL (74-106); Lipase 145 U/L (12-53); Potassium 5.3 mmol/L (3.5-5.1); Sodium 129 mmol/L (136-145)
[2023-07-31 13:34] LABS: Albumin 2.8 g/dL (3.2-4.8); Bilirubin, Total 3.1 mg/dL (0.2-1.0); Total Protein 6.4 g/dL (5.7-8.2)
[2023-07-31 13:49] LABS: Anisocytosis Moderate; Platelet Estimate Adequate
[2023-07-31] MEDS: SODIUM ZIRCONIUM CYCL 10 GM PAK PO ONE (14:15)
[2023-07-31] MEDS: ALBUTEROL SULF 2.5 MG/0.5ML(0.5%) NEB SOLN NEB ONE (14:37)
[2023-07-31] MEDS: FUROSEMIDE 40 MG/4 ML VIAL IV ONE (14:40)
[2023-07-31 14:42] VITALS: PULSE 80; RESP 16; O2SAT 100
[2023-07-31] MEDS: CALCIUM GLUC 1,000mg/50ml-NS 50 ML IV ONE (14:53)
[2023-07-31] MEDS: NOREPINEPHRINE 8 MG/250ML KIT 250 ML IV SCH (15:27)
[2023-07-31] MEDS ORDERED: ONDANSETRON HCL 4 MG/2 ML VIAL IV PRN (15:30)
[2023-07-31] MEDS ORDERED: cefTRIAXone 1GM/50ML D5W 50 ML IV ONE (15:30)
[2023-07-31] MEDS ORDERED: NITROGLYCERIN 0.4 MG SL TAB SL PRN (15:30)
[2023-07-31] MEDS ORDERED: DOCUSATE SOD 100 MG CAP PO PRN (15:30)
[2023-07-31] MEDS ORDERED: ACETAMINOPHEN 325 MG TAB PO PRN (15:30)
[2023-07-31 15:35] LABS: INR 2.07 (0.9-1.15); Partial Thromboplastin Time 41.6 SEC (24.5-34.5); Prothrombin Time 20.7 sec (9.3-11.8)
[2023-07-31] MEDS: PIPERACILLIN-TAZOB 3.375GM 100 ML IV ONE (15:56)
[2023-07-31] MEDS ORDERED: VANCOMYCIN PER PHARMACY 0 MG IV SCH (16:00)
[2023-07-31] MEDS: VANCOMYCIN 1GM/200ML 200 ML IV ONE (18:44)
[2023-07-31] MEDS: SODIUM CHLORIDE 0.9% 1,000 ML IV ONE (18:44)
[2023-07-31] MEDS: SODIUM CHLORIDE 0.9% 1,950 ML IV ONE (18:48)
[2023-07-31 19:45] VITALS: O2SAT 95
[2023-07-31 19:51] LABS: Chloride 94 mmol/L (98-107); Potassium 5.4 mmol/L (3.5-5.1); Sodium 129 mmol/L (136-145)
[2023-07-31 19:52] LABS: Anion Gap 14 (5-15); Carbon Dioxide 21 mmol/L (20-30)
[2023-07-31 19:53] LABS: Calcium 7.3 mg/dL (8.5-10.1)
[2023-07-31 19:58] LABS: BUN/Creatinine Ratio 6.8 (10.0-20.0); Blood Urea Nitrogen 74 mg/dL (9-23); Glucose 83 mg/dL (74-106)
[2023-07-31] MEDS: SODIUM CHLOR 0.9% PF (SALINE LOCK) 10ML VIAL/SYR IV SCH (22:14)
[2023-08-01 06:13] LABS: Basophils # (auto) 0 10 ^3/uL (0-0.2); Basophils % (auto) 0.3 % (0.0-2.0); Eosinophils # (auto) 0.1 10 ^3/uL (0-0.8); Eosinophils % (auto) 0.5 % (0.0-7.0); Hematocrit 35.5 % (41.0-53.0); Hemoglobin 11.4 g/dL (13.5-17.5); Lymphocytes # (auto) 0.7 10 ^3/uL (0.4-5.4); Lymphocytes % (auto) 3.7 % (10.0-50.0); Mean Corpuscular Hgb Conc. 32.1 g/dL (32.0-36.0); Mean Corpuscular Volume 87.4 fL (80.0-100.0); Monocytes # (auto) 0.9 10 ^3/uL (0-1.3); Monocytes % (auto) 4.8 % (0.0-12.0); Neutrophils % (auto) 90.7 % (37.0-80.0); Nucleated Red Blood Cells % 0.2 %; Red Blood Cells 4.06 10^6/uL (4.5-5.90); White Blood Cell 18.7 10^3/uL (4.4-10.8)
[2023-08-01 06:45] LABS: Alanine Aminotransferase 20 U/L (7-40); Albumin 2.8 g/dL (3.2-4.8); Alkaline Phosphatase 496 U/L (46-116); Anion Gap 14 (5-15); Aspartate Aminotransferase 88 U/L (13-40); BUN/Creatinine Ratio 7.2 (10.0-20.0); Bilirubin, Total 3.2 mg/dL (0.2-1.0); Blood Urea Nitrogen 79 mg/dL (9-23); Calcium 6.7 mg/dL (8.7-10.4); Carbon Dioxide 19 mmol/L (20-30); Chloride 96 mmol/L (98-107); Glucose 65 mg/dL (74-106); Lipase 116 U/L (12-53); Sodium 129 mmol/L (136-145); Total Protein 6.6 g/dL (5.7-8.2)
[2023-08-01 06:46] LABS: Lactic Acid w/Reflex 2.1 mmol/L (0.4-2.0)
[2023-08-01 07:19] LABS: Potassium 5.8 mmol/L (3.5-5.1)
[2023-08-01 08:00] VITALS: PULSE 73; RESP 17; O2SAT 97
[2023-08-01] MEDS ORDERED: cefTRIAXone 1GM/50ML D5W 50 ML IV SCH (09:00)
[2023-08-01] MEDS: ENOXAPARIN SOD 30 MG/0.3 ML SYRINGE SC SCH (10:00)
[2023-08-01] MEDS: SODIUM CHL 0.9% 1000 ML BAG XX ONE (10:30)
[2023-08-01 11:14] LABS: Base Excess -6.3 mmol/L (-2.0-2.0)
[2023-08-01] MEDS: MORPHINE SULFATE INJ 2 MG/ml SYRG IV PRN (13:15)
[2023-08-01] MEDS: cefTRIAXone 1GM/50ML D5W 50 ML IV SCH (14:21)
[2023-08-01 18:52] LABS: Triglycerides 119 mg/dL (< 150)
[2023-08-01 18:53] LABS: LDL Cholesterol 13 mg/dL (< 100)
[2023-08-01 18:54] LABS: Cholesterol < 50.0 mg/dL (< 200); HDL Cholesterol < 5 mg/dL (40-59)
[2023-08-01 19:40] VITALS: PULSE 79; RESP 16; O2SAT 96
[2023-08-01] MEDS: diphenhdrAMINE HCL 50 MG/1 ML VL IV PRN (20:56)
[2023-08-01] MEDS ORDERED: EPOETIN ALFA-EPBX 4,000 UNIT/ML VIAL SC ONE (21:00)
[2023-08-01 22:32] LABS: COVID19 ANTIGEN SOFIA FIA NEGATIVE (NEGATIVE); Rapid Influenza A Negative (Negative)
[2023-08-01 22:35] LABS: Rapid Influenza B Positive (Negative)
[2023-08-01] MEDS: ATORVASTATIN 20 MG TAB PO SCH (22:54)
[2023-08-02] MEDS ORDERED: OSELTAMIVIR 75 MG CAP PO ONE (00:30)
[2023-08-02] MEDS: OSELTAMIVIR 30 MG CAP PO ONE (00:57)
[2023-08-02 05:45] LABS: Basophils # (auto) 0.1 10 ^3/uL (0-0.2); Basophils % (auto) 0.8 % (0.0-2.0); Eosinophils # (auto) 0.2 10 ^3/uL (0-0.8); Eosinophils % (auto) 1.2 % (0.0-7.0); Hematocrit 37.4 % (41.0-53.0); Hemoglobin 12.2 g/dL (13.5-17.5); Lymphocytes # (auto) 0.5 10 ^3/uL (0.4-5.4); Lymphocytes % (auto) 3.3 % (10.0-50.0); Mean Corpuscular Hemoglobin 28.1 pg (28.0-32.0); Mean Corpuscular Hgb Conc. 32.5 g/dL (32.0-36.0); Mean Corpuscular Volume 86.4 fL (80.0-100.0); Monocytes # (auto) 0.7 10 ^3/uL (0-1.3); Monocytes % (auto) 4.3 % (0.0-12.0); Neutrophils # (auto) 13.8 10 ^3/uL (1.6-8.6); Neutrophils % (auto) 90.4 % (37.0-80.0); Nucleated Red Blood Cells % 0.4 %; Red Blood Cells 4.33 10^6/uL (4.5-5.90); White Blood Cell 15.3 10^3/uL (4.4-10.8)
[2023-08-02 05:50] LABS: Red Cell Distribution Width 23.8 % (11.8-14.3)
[2023-08-02 06:04] LABS: Alanine Aminotransferase 23 U/L (7-40); Albumin 2.7 g/dL (3.2-4.8); Alkaline Phosphatase 582 U/L (46-116); Anion Gap 12 (5-15); Aspartate Aminotransferase 124 U/L (13-40); BUN/Creatinine Ratio 6.3 (10.0-20.0); Blood Urea Nitrogen 50 mg/dL (9-23); Calcium 7.3 mg/dL (8.7-10.4); Carbon Dioxide 25 mmol/L (20-30); Chloride 98 mmol/L (98-107); Glucose 71 mg/dL (74-106); Magnesium 2.4 mg/dL (1.6-2.6); Potassium 4.7 mmol/L (3.5-5.1); Sodium 135 mmol/L (136-145)
[2023-08-02 06:05] LABS: Bilirubin, Total 3.9 mg/dL (0.2-1.0); Total Protein 6.6 g/dL (5.7-8.2)
[2023-08-02 08:00] VITALS: PULSE 77; RESP 16; O2SAT 97
[2023-08-02] MEDS: VANCOMYCIN 1GM/200ML 200 ML IV ONE (16:18)
[2023-08-02] MEDS ORDERED: LORazepam 2MG/ML-1ML VIAL IV PRN (17:15)
[2023-08-02] MEDS: OSELTAMIVIR 30 MG CAP PO SCH (17:31)
[2023-08-02] MEDS: ATORVASTATIN 20 MG TAB PO SCH (17:33)
[2023-08-02 19:25] VITALS: PULSE 81; RESP 16; O2SAT 92
[2023-08-03] MEDS: HYDROcodone-ACET 5/325MG TAB PO PRN (01:46)
[2023-08-03 06:24] LABS: Eosinophils # (auto) 0.2 10 ^3/uL (0-0.8); Nucleated Red Blood Cells % 0.1 %
[2023-08-03 06:26] LABS: Basophils # (auto) 0.1 10 ^3/uL (0-0.2); Basophils % (auto) 0.6 % (0.0-2.0); Eosinophils % (auto) 1.6 % (0.0-7.0); Hematocrit 35.8 % (41.0-53.0); Hemoglobin 11.7 g/dL (13.5-17.5); Lymphocytes # (auto) 0.7 10 ^3/uL (0.4-5.4); Lymphocytes % (auto) 5.2 % (10.0-50.0); Mean Corpuscular Hemoglobin 28.2 pg (28.0-32.0); Mean Corpuscular Hgb Conc. 32.6 g/dL (32.0-36.0); Mean Corpuscular Volume 86.6 fL (80.0-100.0); Monocytes % (auto) 6.7 % (0.0-12.0); Neutrophils # (auto) 12.3 10 ^3/uL (1.6-8.6); Neutrophils % (auto) 85.9 % (37.0-80.0); Red Blood Cells 4.13 10^6/uL (4.5-5.90); Red Cell Distribution Width 23.9 % (11.8-14.3); White Blood Cell 14.3 10^3/uL (4.4-10.8)
[2023-08-03 06:41] LABS: Alanine Aminotransferase 27 U/L (7-40); Albumin 2.3 g/dL (3.2-4.8); Alkaline Phosphatase 649 U/L (46-116); Anion Gap 14 (5-15); Aspartate Aminotransferase 144 U/L (13-40); BUN/Creatinine Ratio 7.8 (10.0-20.0); Calcium 6.9 mg/dL (8.7-10.4); Carbon Dioxide 24 mmol/L (20-30); Chloride 94 mmol/L (98-107); Glucose 82 mg/dL (74-106); Magnesium 2.4 mg/dL (1.6-2.6); Potassium 4.7 mmol/L (3.5-5.1); Sodium 132 mmol/L (136-145)
[2023-08-03 06:42] LABS: Bilirubin, Total 4.6 mg/dL (0.2-1.0); Blood Urea Nitrogen 72 mg/dL (9-23); Phosphorus 5.3 mg/dL (2.4-5.1)
[2023-08-03 07:50] VITALS: PULSE 76; RESP 14; O2SAT 96
[2023-08-03] MEDS ORDERED: OSELTAMIVIR 75 MG CAP PO SCH (10:00)
[2023-08-03] MEDS: SODIUM CHL 0.9% 1000 ML BAG XX ONE (10:55)
[2023-08-03 19:40] VITALS: PULSE 87; RESP 17; O2SAT 92
[2023-08-04] MEDS: ALBUMIN 25% 100 ML IV ONE (01:48)
[2023-08-04 05:37] LABS: Basophils # (auto) 0.1 10 ^3/uL (0-0.2); Lymphocytes # (auto) 0.8 10 ^3/uL (0.4-5.4)
[2023-08-04 05:41] LABS: Basophils % (auto) 0.5 % (0.0-2.0); Eosinophils # (auto) 0.1 10 ^3/uL (0-0.8); Eosinophils % (auto) 1.2 % (0.0-7.0); Hematocrit 34.2 % (41.0-53.0); Lymphocytes % (auto) 6.8 % (10.0-50.0); Mean Corpuscular Hemoglobin 27.9 pg (28.0-32.0); Mean Corpuscular Hgb Conc. 32.1 g/dL (32.0-36.0); Mean Corpuscular Volume 86.7 fL (80.0-100.0); Monocytes % (auto) 8.2 % (0.0-12.0); Neutrophils % (auto) 83.3 % (37.0-80.0); Nucleated Red Blood Cells % 0.1 %; Red Blood Cells 3.95 10^6/uL (4.5-5.90)
[2023-08-04 05:44] LABS: Alanine Aminotransferase 21 U/L (7-40); Alkaline Phosphatase 581 U/L (46-116)
[2023-08-04 05:45] LABS: Albumin 2.7 g/dL (3.2-4.8); Anion Gap 13 (5-15); BUN/Creatinine Ratio 6.4 (10.0-20.0); Calcium 8.2 mg/dL (8.7-10.4); Carbon Dioxide 24 mmol/L (20-30); Chloride 95 mmol/L (98-107); Glucose 82 mg/dL (74-106); Magnesium 2.4 mg/dL (1.6-2.6); Potassium 4.6 mmol/L (3.5-5.1); Sodium 132 mmol/L (136-145)
[2023-08-04 05:46] LABS: Aspartate Aminotransferase 128 U/L (13-40); Bilirubin, Total 4.9 mg/dL (0.2-1.0); Total Protein 6.5 g/dL (5.7-8.2)
[2023-08-04 05:49] LABS: INR 2.27 (0.9-1.15); Partial Thromboplastin Time 49.2 SEC (24.5-34.5); Prothrombin Time 22.6 sec (9.3-11.8)
[2023-08-04 05:52] LABS: Blood Urea Nitrogen 50 mg/dL (9-23)
[2023-08-04 05:55] LABS: Red Cell Distribution Width 24.2 % (11.8-14.3)
[2023-08-04 07:20] VITALS: RESP 17; O2SAT 93
[2023-08-04 09:35] LABS: Anisocytosis Moderate; Platelet Estimate Decreased; Target Cell FEW
[2023-08-04] MEDS: MEROPENEM 500MG IVPB 50 ML IV SCH (13:09)
[2023-08-04 19:35] VITALS: PULSE 81; RESP 18; O2SAT 92
[2023-08-05 01:35] VITALS: PULSE 81; RESP 15; O2SAT 94
[2023-08-05 05:34] LABS: Basophils # (auto) 0 10 ^3/uL (0-0.2); Basophils % (auto) 0.4 % (0.0-2.0); Eosinophils # (auto) 0.2 10 ^3/uL (0-0.8); Eosinophils % (auto) 1.1 % (0.0-7.0); Hematocrit 33.6 % (41.0-53.0); Hemoglobin 11.1 g/dL (13.5-17.5); Lymphocytes # (auto) 0.9 10 ^3/uL (0.4-5.4); Monocytes # (auto) 1.1 10 ^3/uL (0-1.3); White Blood Cell 13.6 10^3/uL (4.4-10.8)
[2023-08-05 05:36] LABS: Calcium 8.3 mg/dL (8.7-10.4)
[2023-08-05 05:37] LABS: Lymphocytes % (auto) 6.4 % (10.0-50.0); Mean Corpuscular Hemoglobin 28.6 pg (28.0-32.0); Mean Corpuscular Hgb Conc. 32.9 g/dL (32.0-36.0); Mean Corpuscular Volume 86.8 fL (80.0-100.0); Monocytes % (auto) 7.9 % (0.0-12.0); Neutrophils # (auto) 11.4 10 ^3/uL (1.6-8.6); Neutrophils % (auto) 84.2 % (37.0-80.0); Nucleated Red Blood Cells % 0.1 %; Red Blood Cells 3.87 10^6/uL (4.5-5.90)
[2023-08-05 05:40] LABS: BUN/Creatinine Ratio 6.4 (10.0-20.0)
[2023-08-05 05:42] LABS: Albumin 2.3 g/dL (3.2-4.8)
[2023-08-05 05:43] LABS: Phosphorus 6.6 mg/dL (2.4-5.1); Red Cell Distribution Width 24.1 % (11.8-14.3)
[2023-08-05 05:47] LABS: Alanine Aminotransferase 22 U/L (7-40); Albumin 2.1 g/dL (3.2-4.8); Alkaline Phosphatase 564 U/L (46-116); Anion Gap 15 (5-15); Aspartate Aminotransferase 121 U/L (13-40); BUN/Creatinine Ratio 8.1 (10.0-20.0); Bilirubin, Total 4.9 mg/dL (0.2-1.0); Calcium 8.2 mg/dL (8.5-10.1); Carbon Dioxide 23 mmol/L (20-30); Chloride 93 mmol/L (98-107); Glucose 87 mg/dL (74-106); Sodium 131 mmol/L (136-145); Total Protein 5.7 g/dL (5.7-8.2)
[2023-08-05 05:58] LABS: Blood Urea Nitrogen 76 mg/dL (9-23)
[2023-08-05 07:30] VITALS: RESP 15; O2SAT 95
[2023-08-05 08:23] LABS: Anisocytosis Moderate; Platelet Estimate Decreased; Target Cell FEW
[2023-08-05 10:41] LABS: Triglycerides 90 mg/dL (< 150)
[2023-08-05 10:42] LABS: LDL Cholesterol 14 mg/dL (< 100)
[2023-08-05 10:43] LABS: Cholesterol < 50.0 mg/dL (< 200); HDL Cholesterol < 5 mg/dL (40-59)
[2023-08-05 18:45] VITALS: PULSE 74
[2023-08-05 22:00] VITALS: BP 102/56; PULSE 79; RESP 19; TEMP 97.7; O2SAT 96
[2023-08-05] MEDS: VANCOMYCIN 500 MG in D5W 5% 100 ML IV ONE (23:15)
[2023-08-06] VITALS (8 sets, daily range): BP systolic 94–143; BP diastolic 51–78; PULSE 72–81; RESP 15–19; TEMP 97.4–98.6; O2SAT 91–98
[2023-08-06 06:19] LABS: Basophils # (auto) 0 10 ^3/uL (0-0.2); Eosinophils # (auto) 0.2 10 ^3/uL (0-0.8); Mean Corpuscular Hgb Conc. 32.1 g/dL (32.0-36.0)
[2023-08-06 06:21] LABS: Alanine Aminotransferase 23 U/L (7-40); Alkaline Phosphatase 514 U/L (46-116); Anion Gap 16 (5-15); Calcium 8.5 mg/dL (8.5-10.1); Carbon Dioxide 21 mmol/L (20-30); Chloride 93 mmol/L (98-107); Glucose 66 mg/dL (74-106); Potassium 5.5 mmol/L (3.5-5.1); Sodium 130 mmol/L (136-145)
[2023-08-06 06:22] LABS: Albumin 2.4 g/dL (3.2-4.8); Aspartate Aminotransferase 113 U/L (13-40); BUN/Creatinine Ratio 6.3 (10.0-20.0); Blood Urea Nitrogen 67 mg/dL (9-23)
[2023-08-06 06:23] LABS: Basophils % (auto) 0.1 % (0.0-2.0); Eosinophils % (auto) 1.5 % (0.0-7.0); Hematocrit 37.3 % (41.0-53.0); Lymphocytes # (auto) 0.8 10 ^3/uL (0.4-5.4); Lymphocytes % (auto) 5.3 % (10.0-50.0); Mean Corpuscular Hemoglobin 27.8 pg (28.0-32.0); Mean Corpuscular Volume 86.7 fL (80.0-100.0); Monocytes # (auto) 1.2 10 ^3/uL (0-1.3); Monocytes % (auto) 7.9 % (0.0-12.0); Neutrophils # (auto) 12.5 10 ^3/uL (1.6-8.6); Neutrophils % (auto) 85.2 % (37.0-80.0); Nucleated Red Blood Cells % 0.2 %; White Blood Cell 14.7 10^3/uL (4.4-10.8)
[2023-08-06 06:24] LABS: Bilirubin, Total 5.2 mg/dL (0.2-1.0); Total Protein 6.3 g/dL (5.7-8.2)
[2023-08-06 06:30] LABS: Red Cell Distribution Width 24.5 % (11.8-14.3)
[2023-08-06] MEDS: CALCIUM ACETATE 667 MG CAP PO SCH ×2 (08:53→18:25)
[2023-08-06 09:01] LABS: Anisocytosis Moderate; Platelet Estimate Decreased
[2023-08-06] MEDS ORDERED: ALBUMIN 25% 100 ML IV ONE (13:15)
[2023-08-06] MEDS: ALBUMIN 25% 100 ML IV ONE ×2 (13:24→13:37)
[2023-08-06] MEDS ORDERED: ASPI1TAB20 PO (16:02)
[2023-08-06] MEDS: MIDODRINE HCL 10 MG TAB PO SCH (18:25)
[2023-08-06] MEDS: ATORVASTATIN 20 MG TAB PO SCH (22:01)
[2023-08-07] VITALS (7 sets, daily range): BP systolic 96–143; BP diastolic 59–77; PULSE 72–86; RESP 16–22; TEMP 97.4–98.1; O2SAT 94–98
[2023-08-07 06:14] LABS: Basophils # (auto) 0 10 ^3/uL (0-0.2); Basophils % (auto) 0.4 % (0.0-2.0); Eosinophils # (auto) 0.2 10 ^3/uL (0-0.8); Eosinophils % (auto) 1.5 % (0.0-7.0); Hematocrit 36.8 % (41.0-53.0); Lymphocytes % (auto) 8.4 % (10.0-50.0); Mean Corpuscular Hemoglobin 28.5 pg (28.0-32.0); Mean Corpuscular Hgb Conc. 32.7 g/dL (32.0-36.0); Mean Corpuscular Volume 87.2 fL (80.0-100.0); Monocytes # (auto) 1.2 10 ^3/uL (0-1.3); Monocytes % (auto) 10.1 % (0.0-12.0); Neutrophils # (auto) 9.3 10 ^3/uL (1.6-8.6); Neutrophils % (auto) 79.6 % (37.0-80.0); Nucleated Red Blood Cells % 0.2 %; Red Blood Cells 4.22 10^6/uL (4.5-5.90); White Blood Cell 11.7 10^3/uL (4.4-10.8)
[2023-08-07 06:26] LABS: Red Cell Distribution Width 24.6 % (11.8-14.3)
[2023-08-07 06:33] LABS: Alanine Aminotransferase 19 U/L (7-40); Albumin 2.8 g/dL (3.2-4.8); Alkaline Phosphatase 490 U/L (46-116); Anion Gap 12 (5-15); BUN/Creatinine Ratio 5.9 (10.0-20.0); Calcium 9.2 mg/dL (8.5-10.1); Carbon Dioxide 27 mmol/L (20-30); Chloride 97 mmol/L (98-107); Glucose 64 mg/dL (74-106); Potassium 4.8 mmol/L (3.5-5.1); Sodium 136 mmol/L (136-145)
[2023-08-07 06:34] LABS: Aspartate Aminotransferase 113 U/L (13-40); Bilirubin, Total 6.1 mg/dL (0.2-1.0); Total Protein 6.7 g/dL (5.7-8.2)
[2023-08-07 06:42] LABS: Blood Urea Nitrogen 44 mg/dL (9-23)
[2023-08-07] MEDS: VANCOMYCIN 500 MG in D5W 5% 100 ML IV ONE (07:30)
[2023-08-07] MEDS: SODIUM CHL 0.9% 1000 ML BAG XX ONE (07:41)
[2023-08-07] MEDS ORDERED: levoFLOXacin 250 MG TAB PO SCH (08:00)
[2023-08-07] MEDS: ASPirin 81 mg TAB PO SCH (08:52)
[2023-08-07 09:18] LABS: Anisocytosis Moderate; Platelet Estimate Decreased
[2023-08-07] MEDS: DOXYCYCLINE 100 MG TAB/CAP PO SCH (10:31)
[2023-08-07] MEDS ORDERED: VANCOMYCIN 500 MG in D5W 5% 100 ML IV ONE (11:00)
[2023-08-07] MEDS ORDERED: DOXY1CAP57 PO (13:02)
[2023-08-08 05:00] VITALS: BP 113/72; PULSE 86; RESP 20; TEMP 98; O2SAT 94
[2023-08-08] MEDS ORDERED: SODIUM CHL 0.9% 1000 ML BAG XX ONE (07:00)
[2023-08-08 07:36] LABS: Basophils # (auto) 0.1 10 ^3/uL (0-0.2); Basophils % (auto) 0.5 % (0.0-2.0); Eosinophils # (auto) 0.3 10 ^3/uL (0-0.8); Eosinophils % (auto) 1.8 % (0.0-7.0); Hematocrit 41.4 % (41.0-53.0); Hemoglobin 12.6 g/dL (13.5-17.5); Lymphocytes # (auto) 1.4 10 ^3/uL (0.4-5.4); Lymphocytes % (auto) 9.8 % (10.0-50.0); Mean Corpuscular Hemoglobin 27.4 pg (28.0-32.0); Mean Corpuscular Hgb Conc. 30.4 g/dL (32.0-36.0); Mean Corpuscular Volume 90.3 fL (80.0-100.0); Monocytes # (auto) 1.2 10 ^3/uL (0-1.3); Monocytes % (auto) 8.4 % (0.0-12.0); Neutrophils # (auto) 11.1 10 ^3/uL (1.6-8.6); Neutrophils % (auto) 79.5 % (37.0-80.0); Red Blood Cells 4.59 10^6/uL (4.5-5.90)
[2023-08-08 07:43] LABS: Red Cell Distribution Width 25.2 % (11.8-14.3)
[2023-08-08 08:00] VITALS: BP 129/67; PULSE 74; PULSE 80; RESP 18; TEMP 97.9; O2SAT 95
[2023-08-08] MEDS ORDERED: SODIUM BICARB 8.4% 50Meq/50ml SYR INJ IV ONE (08:00)
[2023-08-08] MEDS ORDERED: DEXTROSE (50%) 50ML SYRG IV ONE (08:00)
[2023-08-08] MEDS ORDERED: InsuLIN REG 1unit/0.01ml Soln (100units/ml) IV ONE (08:00)
[2023-08-08] MEDS ORDERED: SODIUM ZIRCONIUM CYCL 10 GM PAK PO ONE (08:00)
[2023-08-08 08:37] LABS: Anisocytosis Moderate; Platelet Estimate Decreased
[2023-08-08] MEDS: CALCIUM GLUC 1,000mg/50ml-NS 50 ML IV ONE (09:15)
[2023-08-08 09:39] LABS: Alanine Aminotransferase 26 U/L (7-40); Alkaline Phosphatase 443 U/L (46-116); Anion Gap 13 (5-15); Aspartate Aminotransferase 157 U/L (13-40); BUN/Creatinine Ratio 5.9 (10.0-20.0); Calcium 8.7 mg/dL (8.5-10.1); Carbon Dioxide 25 mmol/L (20-30); Chloride 95 mmol/L (98-107); Glucose 75 mg/dL (74-106); Sodium 133 mmol/L (136-145)
[2023-08-08 09:41] LABS: Albumin 2.6 g/dL (3.2-4.8); Bilirubin, Total 5.5 mg/dL (0.2-1.0)
[2023-08-08 09:42] LABS: Total Protein 6.6 g/dL (5.7-8.2)
[2023-08-08 09:53] LABS: Blood Urea Nitrogen 56 mg/dL (9-23)
[2023-08-08 09:57] LABS: Potassium 5.9 mmol/L (3.5-5.1)
[2023-08-08] MEDS: phytonadione 10 MG in SODIUM CHL 0.9% 50 ML IV ONE ×2 (11:21→18:05)
[2023-08-08 11:58] VITALS: BP 104/64; PULSE 80; RESP 16; TEMP 98.3; O2SAT 97
[2023-08-08 16:00] VITALS: BP 120/67; PULSE 84; RESP 20; TEMP 97.7; O2SAT 91
[2023-08-08 20:02] VITALS: BP 120/67; PULSE 84; RESP 20; TEMP 97.7; O2SAT 100
[2023-08-08 22:00] VITALS: BP 119/71; PULSE 76; RESP 18; TEMP 98.3; O2SAT 93
== END 2023-08-08 23:26 | disposition home health service (06) | DRG 720 ==
LOC: EDUNIT# 11:23 → ER 11:23 → EDBD 11:23 → TELE 15:34 → TELE-CENTR 08-05 17:49
PROVIDERS: ADMIT Internal Medicine Pulmonary Disease; ATTEND Emergency Medicine
PROC: 5A1D70Z Performance of Urinary Filtration, Intermittent, Less than 6 Hours Per Day (ICD-10-PCS; principal; 2023-08-01)
PROC: 5A1D70Z Performance of Urinary Filtration, Intermittent, Less than 6 Hours Per Day (ICD-10-PCS; 2023-08-03)
PROC: 5A1D70Z Performance of Urinary Filtration, Intermittent, Less than 6 Hours Per Day (ICD-10-PCS; 2023-08-06)
PROC: 5A1D70Z Performance of Urinary Filtration, Intermittent, Less than 6 Hours Per Day (ICD-10-PCS; 2023-08-08)
DX: A41.9 Sepsis, unspecified organism (principal); J96.01 Acute respiratory failure with hypoxia; R65.21 Severe sepsis with septic shock; G92.8 Other toxic encephalopathy; J10.00 Influenza due to other identified influenza virus with unspecified type of pneumonia; E44.0 Moderate protein-calorie malnutrition; D68.9 Coagulation defect, unspecified; D63.1 Anemia in chronic kidney disease; E83.39 Other disorders of phosphorus metabolism; I67.1 Cerebral aneurysm, nonruptured; I95.3 Hypotension of hemodialysis; I12.0 Hypertensive chronic kidney disease with stage 5 chronic kidney disease or end stage renal disease; E87.20 Acidosis, unspecified; N18.6 End stage renal disease; E87.1 Hypo-osmolality and hyponatremia; E78.5 Hyperlipidemia, unspecified; E80.6 Other disorders of bilirubin metabolism; F17.200 Nicotine dependence, unspecified, uncomplicated; D69.59 Other secondary thrombocytopenia; I25.10 Atherosclerotic heart disease of native coronary artery without angina pectoris; K76.89 Other specified diseases of liver; E87.70 Fluid overload, unspecified; E87.5 Hyperkalemia; Z20.822 Contact with and (suspected) exposure to COVID-19; B19.20 Unspecified viral hepatitis C without hepatic coma; R74.01 Elevation of levels of liver transaminase levels; K76.9 Liver disease, unspecified; Z99.2 Dependence on renal dialysis; Z79.899 Other long term (current) drug therapy; Z80.0 Family history of malignant neoplasm of digestive organs; Z83.3 Family history of diabetes mellitus; Z63.4 Disappearance and death of family member; Z79.02 Long term (current) use of antithrombotics/antiplatelets; I69.354 Hemiplegia and hemiparesis following cerebral infarction affecting left non-dominant side; Z86.79 Personal history of other diseases of the circulatory system; Z68.23 Body mass index [BMI] 23.0-23.9, adult; I25.2 Old myocardial infarction
CPT/HCPCS: 36415; 36556; 36600; 70450; 70545; 70551; 71045; 74176; 76700; 80048; 80053; 80061; 80069; 80202; 82105; 82140; 82805; 83605; 83690; 83735; 84100; 84484; 85025; 85379; 85610; 85730; 86803; 86850; 86900; 86901; 87040; 87081; 87340; 87426; 87804; 90935; 93005; 93886; 93970; 94640; 96365; 96367; 97110; 97116; 97163; 97530; 99291; G0378; G9035; J2185; J2543; J3430; J7060; P9047

== ENCOUNTER 2023-08-13 07:32 | Emergency (ER) | payer MEDICAID ==
[~2023-08-13] VITALS: Ht 175.3 cm; Wt 54.5 kg
[~2023-08-13 07:32] MED LIST changes: +ASPI1TAB20 PO; -ATO40T PO; +ATOR-507 PO; +DOXY1CAP57 PO; -SEVE800T PO; +SEVE800T7 PO
[2023-08-13 08:11] LABS: Basophils # (auto) 0.1 10 ^3/uL (0-0.2); Basophils % (auto) 1.1 % (0.0-2.0); Eosinophils # (auto) 0.6 10 ^3/uL (0-0.8); Eosinophils % (auto) 5.4 % (0.0-7.0); Hemoglobin 11.9 g/dL (13.5-17.5); Lymphocytes % (auto) 9.4 % (10.0-50.0); Mean Corpuscular Hgb Conc. 32.1 g/dL (32.0-36.0); Mean Corpuscular Volume 87.2 fL (80.0-100.0); Monocytes # (auto) 0.9 10 ^3/uL (0-1.3); Monocytes % (auto) 8.8 % (0.0-12.0); Neutrophils # (auto) 7.7 10 ^3/uL (1.6-8.6); Neutrophils % (auto) 75.3 % (37.0-80.0); Red Blood Cells 4.24 10^6/uL (4.5-5.90); White Blood Cell 10.2 10^3/uL (4.4-10.8)
[2023-08-13 08:29] LABS: Alanine Aminotransferase 34 U/L (7-40); Albumin 2.5 g/dL (3.2-4.8); Alkaline Phosphatase 287 U/L (46-116); Anion Gap 6 (5-15); Aspartate Aminotransferase 185 U/L (13-40); BUN/Creatinine Ratio 4.5 (10.0-20.0); Blood Urea Nitrogen 31 mg/dL (9-23); Calcium 7.3 mg/dL (8.7-10.4); Carbon Dioxide 26 mmol/L (20-30); Chloride 103 mmol/L (98-107); Glucose 70 mg/dL (74-106); Lipase 309 U/L (12-53); Sodium 135 mmol/L (136-145)
[2023-08-13 08:30] LABS: Bilirubin, Total 3.7 mg/dL (0.2-1.0); Total Protein 7.3 g/dL (5.7-8.2)
[2023-08-13] MEDS ORDERED: ONDANSETRON HCL 4 MG/2 ML VIAL IV PRN (12:45)
[2023-08-13] MEDS ORDERED: HYDROcodone-ACET 5/325MG TAB PO PRN (12:45)
[2023-08-13] MEDS ORDERED: MORPHINE SULFATE INJ 2 MG/ml SYRG IV PRN (12:45)
[2023-08-13] MEDS ORDERED: ACETAMINOPHEN 325 MG TAB PO PRN (12:45)
[2023-08-13] MEDS ORDERED: NITROGLYCERIN 0.4 MG SL TAB SL PRN (12:45)
[2023-08-13] MEDS ORDERED: DOCUSATE SOD 100 MG CAP PO PRN (12:45)
[2023-08-13] MEDS: SODIUM CHLOR 0.9% PF (SALINE LOCK) 10ML VIAL/SYR IV SCH (14:00)
[2023-08-13 15:53] LABS: Hematocrit 35.6 % (41.0-53.0); Hemoglobin 11.5 g/dL (13.5-17.5)
[2023-08-13 17:24] VITALS: BP 103/65; PULSE 86; RESP 26; TEMP 98.1; O2SAT 97
[2023-08-13] MEDS: ACETAMINOPHEN 325 MG TAB PO ONE (17:31)
== END 2023-08-13 17:50 | disposition short-term general hospital (02) ==
LOC: EDBD 07:32 → ER 07:32 → TELE 13:01 → UNDOADMIN 13:01 → UNDODISIN 17:50 → TELE 17:50
DX: T82.838A Hemorrhage due to vascular prosthetic devices, implants and grafts, initial encounter (principal); K85.90 Acute pancreatitis without necrosis or infection, unspecified; I12.0 Hypertensive chronic kidney disease with stage 5 chronic kidney disease or end stage renal disease; N18.6 End stage renal disease; E78.5 Hyperlipidemia, unspecified; Z99.2 Dependence on renal dialysis; Z79.82 Long term (current) use of aspirin; Z79.01 Long term (current) use of anticoagulants; Z79.2 Long term (current) use of antibiotics; Z79.899 Other long term (current) drug therapy
CPT/HCPCS: 36415; 74176; 76705; 80053; 82962; 83690; 85014; 85018; 85025; G0378

== ENCOUNTER 2023-12-09 17:27 | Emergency (ER) | payer MEDICAID ==
[~2023-12-09] VITALS: Ht 182.9 cm; Wt 75.0 kg
[2023-12-09 17:28] VITALS: BP 129/72; PULSE 87; RESP 16; O2SAT 95
[2023-12-09 20:31] LABS: Urine Bacteria None Seen /hpf (None Seen)
[2023-12-09 20:45] LABS: Basophils # (auto) 0.1 10 ^3/uL (0-0.2); Basophils % (auto) 1.2 % (0.0-2.0); Eosinophils # (auto) 0.1 10 ^3/uL (0-0.8); Eosinophils % (auto) 2.6 % (0.0-7.0); Hemoglobin 14.1 g/dL (13.5-17.5); Lymphocytes # (auto) 1.2 10 ^3/uL (0.4-5.4); Lymphocytes % (auto) 26.6 % (10.0-50.0); Mean Corpuscular Hemoglobin 32.3 pg (28.0-32.0); Mean Corpuscular Hgb Conc. 32.9 g/dL (32.0-36.0); Mean Corpuscular Volume 98.3 fL (80.0-100.0); Monocytes # (auto) 0.4 10 ^3/uL (0-1.3); Monocytes % (auto) 9.5 % (0.0-12.0); Neutrophils # (auto) 2.7 10 ^3/uL (1.6-8.6); Neutrophils % (auto) 60.1 % (37.0-80.0); Nucleated Red Blood Cells % 0.1 %; Red Blood Cells 4.37 10^6/uL (4.5-5.90); White Blood Cell 4.4 10^3/uL (4.4-10.8)
[2023-12-09 20:52] LABS: Urine Blood 3+ /uL (Negative); Urine Clarity Ex.Turbid (Clear); Urine Color Dark-Brown (Yellow); Urine Mucus FEW (None Seen); Urine Protein, UAD 2+ (Negative); Urine Specific Gravity 1.022 (1.001-1.035); Urine Urobilinogen Normal (Negative); Urine WBC 461 /hpf (0 - 3); Urine WBC Clumps PRESENT /hpf (None Seen)
[2023-12-09 21:01] LABS: Alanine Aminotransferase 77 U/L (7-40); Albumin 3.9 g/dL (3.2-4.8); Alkaline Phosphatase 172 U/L (46-116); Anion Gap 8 (5-15); Aspartate Aminotransferase 46 U/L (13-40); BUN/Creatinine Ratio 4.6 (10.0-20.0); Blood Urea Nitrogen 22 mg/dL (9-23); Carbon Dioxide 25 mmol/L (20-30); Chloride 104 mmol/L (98-107); Glucose 95 mg/dL (74-106); Potassium 4.5 mmol/L (3.5-5.1); Sodium 137 mmol/L (136-145)
[2023-12-09 21:02] LABS: Bilirubin, Total 0.8 mg/dL (0.2-1.0); Total Protein 7.8 g/dL (5.7-8.2)
[2023-12-09 22:32] LABS: Anisocytosis Slight; Platelet Estimate Decreased
== END 2023-12-10 01:03 | disposition home or self-care (01) ==
LOC: ER 17:27
DX: N18.6 End stage renal disease (principal); R31.9 Hematuria, unspecified; E78.5 Hyperlipidemia, unspecified; Z99.2 Dependence on renal dialysis; Z86.73 Personal history of transient ischemic attack (TIA), and cerebral infarction without residual deficits; Z79.899 Other long term (current) drug therapy
CPT/HCPCS: 36415; 80053; 81001; 85025

== ENCOUNTER 2024-05-27 16:22 | Inpatient (IN) | payer MEDICAID ==
[~2024-05-27] VITALS: Ht 182.9 cm; Wt 78.9 kg
--- NOTE | 2024-05-27 17:17 | DVH ---
CHEST RADIOGRAPH Indication: GEN WEAK Technique: Single frontal view of the chest was obtained Comparison: XY CHEST XRAY 1 VIEW on DOS: 08/05/23, XY CHEST PORTABLE on DOS: 07/31/23, XY CHEST PORTABL E on DOS: 07/25/23 FINDINGS: Lines and Tubes: Left-sided approach hemodialysis catheter terminating over the superior cavoatrial j unction. Lungs: No focal consolidation. Bronchovascular crowding due to low lung volumes. Pleura: No effusion. No pneumothorax. Cardiomediastinal contours: Unremarkable. Mild atherosclerotic calcification and uncoiling of the ao rta. Bones: No acute osseous abnormality. IMPRESSION: Bronchovascular crowding due to low lung volumes. Otherwise, no evidence for acute cardiopulmonary d isease. Left IJ approach hemodialysis catheter terminating over the superior cavoatrial junction.
--- NOTE | 2024-05-27 17:21 | DVH ---
EXAM: CT STROKE CTH HISTORY: R/O STROKE COMPARISON: None TECHNIQUE: Axial images of the head were obtained and reformatted in coronal and sagittal planes. All CT scans at this medical facility are performed using dose modulation techniques as appropriate t o a performed exam including the following: Automated exposure control was utilized; adjustment of th e MA and/or KV according to patient size; and use of iterative reconstruction technique. CT Dose: CTDI volume is 54.05 mGy. Dose-length product is 2056.52 mGy*cm FINDINGS: There is cystic encephalomalacia along the anterior medial right frontal lobe May relate to chronic i nfarct. There is ex vacuo dilatation of the right lateral ventricle. There are confluence hypodense c hanges in the right supratentorial periventricular white matter which May relate to gliosis or chroni c microvascular ischemic changes. There is also likely small chronic infarct in the right basal gangl ia. There is no evidence of acute intracranial hemorrhage, mass, mass effect midline shift. There is no h ydrocephalus or extra-axial fluid collection. There is partial opacification of the left ethmoid air cells. The remaining paranasal sinuses and ma stoid air cells are clear. The calvarium is intact. IMPRESSION: 1. Cystic encephalomalacia along the anteromedial right frontal lobe May relate to chronic infarct. There is ex vacuo dilatation of the right lateral ventricle. 2. There are confluence hypodense changes in the right supratentorial periventricular white matter wh ich May relate to gliosis or chronic microvascular ischemic changes. 3. Likely small chronic infarct in the right basal ganglia. HS:Y
[2024-05-27 17:30] VITALS: PULSE 102; RESP 21; O2SAT 91
[2024-05-27 17:53] LABS: Basophils # (auto) 0 10 ^3/uL (0-0.2); Eosinophils # (auto) 0 10 ^3/uL (0-0.8); Hemoglobin 18.8 g/dL (13.5-17.5); Lymphocytes # (auto) 0.7 10 ^3/uL (0.4-5.4); Mean Corpuscular Hgb Conc. 32.9 g/dL (32.0-36.0); Mean Corpuscular Volume 98.4 fL (80.0-100.0); Monocytes # (auto) 0.6 10 ^3/uL (0-1.3); Nucleated Red Blood Cells % 0.3 %
[2024-05-27 17:55] LABS: Basophils % (auto) 0.3 % (0.0-2.0); Eosinophils % (auto) 0.1 % (0.0-7.0); Lymphocytes % (auto) 8.2 % (10.0-50.0); Mean Corpuscular Hemoglobin 32.4 pg (28.0-32.0); Monocytes % (auto) 6.4 % (0.0-12.0); Neutrophils # (auto) 7.7 10 ^3/uL (1.6-8.6); Platelet Count (auto) 73 10^3/uL (140-450); Red Cell Distribution Width 18.3 % (11.8-14.3); White Blood Cell 9.1 10^3/uL (4.4-10.8)
[2024-05-27 18:02] LABS: Hematocrit 57.1 % (41.0-53.0)
[2024-05-27 18:10] LABS: Alanine Aminotransferase 29 U/L (7-40); Albumin 4.7 g/dL (3.2-4.8); Anion Gap 12 (5-15); Aspartate Aminotransferase 29 U/L (13-40); BUN/Creatinine Ratio 4.3 (10.0-20.0); Carbon Dioxide 26 mmol/L (20-31); Chloride 100 mmol/L (98-107); Magnesium 2.4 mg/dL (1.6-2.6); Potassium 4.2 mmol/L (3.5-5.1); Sodium 138 mmol/L (136-145)
[2024-05-27 18:14] LABS: Alkaline Phosphatase 320 U/L (46-116); Bilirubin, Total 1.5 mg/dL (0.2-1.0); Blood Urea Nitrogen 27 mg/dL (9-23); Calcium 11.2 mg/dL (8.7-10.4); Glucose 112 mg/dL (74-106); Total Protein 8.5 g/dL (5.7-8.2)
[2024-05-27 18:16] LABS: INR 1.19 (0.9-1.15); Partial Thromboplastin Time 33.5 SEC (24.5-34.5); Prothrombin Time 12.5 sec (9.3-11.8)
[2024-05-27] MEDS: ACETAMINOPHEN 325 MG TAB PO ONE (19:09)
[2024-05-27] MEDS ORDERED: ONDANSETRON HCL 4 MG/2 ML VIAL IV PRN (19:45)
[2024-05-27] MEDS ORDERED: MORPHINE SULFATE INJ 2 MG/ml SYRG IV PRN (19:45)
[2024-05-27] MEDS ORDERED: NITROGLYCERIN 0.4 MG SL TAB SL PRN (19:45)
--- NOTE | 2024-05-27 20:28 | ED.PDOC ---
History of Present Illness HPI Comments This is a 59-year-old male who comes in by paramedics. The patient was status post dialysis at 2:00 a.m. today. The patient was now complaining of some generalized weakness but it was noted that he may have some right-sided weakness. 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 Upon evaluation by the triage nurse, the patient did have some weakness to the right upper and lower extremity. At that time a code stroke was called. He was alert and oriented x4. He denied any chest pain or shortness for breath. They also stated that the patient has spilled some fluid on himself which is not typical. EN route, the patient had an oxygen saturation at approximately 70%. Chief Complaint: Right Sided Weakness Time Seen by MD: 16:33 Primary Care Provider: UNKNOWN Reviewed Notes: Nurses Notes, Medications, Allergies (No allergies to medica tions) Allergies: Coded Allergies: NO KNOWN ALLERGIES (Unverified , 03/05/23) Home Meds Active Scripts Doxycycline Monohydrate (Doxycycline Monohydrate) 100 Mg Cap, 1 CAP PO BID for 2 Days, #4 CAP Prov:PHUONG LOPEZ RESIDENT 08/07/23 Aspirin (Aspir-81) 81 Mg Tab, 1 TAB PO DAILY, #30 TAB 5 Refills Prov:PHUONG LOPEZ RESIDENT 08/06/23 Levofloxacin Hemihydrate (LEVAQUIN 500 MG) 500 Mg Tab, 500 MG PO DAILY for 10 Days, #10 TAB Prov:JEANETTE JUNG RESIDENT 07/29/23 Ferrous Sulfate (FERROUS SULFATE) 325 Mg Tb, 1 TAB PO DAILY, #30 TAB 3 Refills Prov:MARTÍNEZ REINA MD 05/17/23 Pantoprazole Sodium Sesquihydr (Protonix) 40 Mg Tab, 40 MG PO DAILY, #90 TAB Prov:MARTÍNEZ REINA MD 05/17/23 Atorvastatin Calcium (Lipitor) 40 Mg Tab, 1 TAB PO QPM, #90 TAB 1 Refill Prov:CASS SHEA MD 03/09/23 Clopidogrel Bisulfate (CLOPIDOGREL) 75 Mg Tab, 75 MG PO DAILY, #30 TAB 5 Refills Prov:CASS SHEA MD 03/09/23 Sevelamer Hydrochloride (Renagel) 800 Mg Tab, 1600 MG PO TIDWM, #180 TAB 6 Refills Prov:CASS SHEA MD 03/09/23 Nifedipine (Nifedipine Er) 60 Mg Tab, 1 TAB PO DAILY, #90 TAB 1 Refill Prov:CASS SHEA MD 03/09/23 Reported Medications Cinacalcet Hydrochloride (Sensipar) 30 Mg Tab, 30 MG PO DAILY, TAB 05/15/23 Information Source: Patient Mode of Arrival: EMS Severity: Mild Duration: Since onset 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 The patient was having some generalized weakness Past Medical History PAST MEDICAL HISTORY: CVA, ESRD, High Lipids, HTN Surgical History: Denies all surgeries Surgical History (Other): Right arm fistula for the dialysis, eye surgery Family History Family History: Family hx of Cancer Social History Smoker: Non-Smoker Alcohol: Denies ETOH Use Drugs: Denies Drug Use Lives In: Home Constitutional: denies: chills, diaphoresis, fatigue, fever, malaise, sweats, weakness, others EENTM: denies: blurred vision, double vision, ear bleeding, ear discharge, ear drainage, ear pain, ear ringing, eye pain, eye redness, hearing loss, mouth pain, mouth swelling, nasal discharge, nose bleeding, nose congestion, nose pain, photophobia, tearing, throat pain, throat swelling, voice changes, others Respiratory: denies: cough, hemoptysis, orthopnea, SOB at rest, shortness of breath, SOB with excertion, stridor, wheezing, others Cardiovascular: denies: chest pain, dizzy spells, diaphoresis, Dyspnea on exertion, edema, irregular heart beat, left arm pain, lightheadedness, palp itations, PND, syncope, others Gastrointestinal: denies: abdomen distended, abdominal pain, blood streaked bowels, constipated, diarrhea, dysphagia, difficulty swallowing, hematemesis, melena, nausea, poor appetite, poor fluid intake, rectal bleeding, rectal pain, vomiting, others Genitourinary: denies: burning, dysuria, flank pain, frequency, hematuria, incontinence, penile discharge, penile sore, pain, testicle pain, testicle swelling, urgency, others Neurological: reports: weakness (It seems that the patient had some right-sided weakness); denies: dizziness, fainting, headache, left sided numbness, left sided weakness, numbness, paresthesia, pre-existing deficit, right sided numbness, right sided weakness, seizure, speech problems, tingling, tremors, others Musculoskeletal: denies: back pain, gout, joint pain, joint swelling, muscle pain, muscle stiffness, neck pain, others Integumetry: denies: bruises, change in color, change in hair/nails, dryness, laceration, lesions, lumps, rash, wounds, others Allergic/Immunocompromised: denies: Difficulty Healing, Frequent Infections, Hives, Itching, others Hematologic/Lymphatic: denies: anemia, blood clots, easy bleeding, easy bruising, swollen glands, others Endocrine: denies: excessive hunger, excessive sweating, excessive thirst, excessive urination, flushing, intolerance to cold, intolerance to heat, unexplained weight gain, unexplained weight loss, others Psychiatric: denies: anxiety, bipolar disorder, depression, hopeless, panic disorder, schizophrenia, sleepless, suicidal, others Physical Exam General Appearance: Mild Distress HEENT: Normal ENT Inspection, Pharynx Normal, TMs Normal Neck: Full Range of Motion, Non-Tender, Normal, Normal Inspection Respiratory: Chest Non-Tender, Lungs Clear, No Accessory Muscle Use, No Respiratory Distress, Normal Breath Sounds Cardiovascular: No Edema, No JVD, No Murmur, No Gallop, Normal Peripheral Pulses, Regular Rate/Rhythm Breast Exam: Deferred Gastrointestinal: No Organomegaly, Non Tender, No Pulsatile Mass, Normal Bowel Sounds, Soft Genitalia: Deferred Pelvic: Deferred Rectal: Deferred Extremities: No calf tenderness, Normal capillary refill, No pedal edema, Other (The patient has a fistula to the right upper extremity for dialysis) Musculoskeletal : Apperance: Normal 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 Was a procedure done?: No EKG EKG : Pulse Rate (adult): 104 [place]: Normal Cardiac Rhythm: ST Hypertrophy: LVH Differential Dx Considerations may include: Generalized weakness, CVA, dehydration X-Ray, Labs, Meds, VS Vital Signs Date Time Temp Pulse Resp B/P (MAP) Pulse Ox O2 Delivery O2 Flow Rate FiO2 05/27/24 17:30 103 13 115/75 (88) 94 05/27/24 17:30 102 21 91 Nasal Cannula* 4 36 05/27/24 16:29 104 05/27/24 16:25 97.8 110 20 105/66 (79) 90 Lab Test 05/27/24 18:17 05/27/24 17:15 Range/Units Troponin I High Sensitivity 214 *H 153 *H </=54 ng/L White Blood Count 9.1 4.4-10.8 10^3/uL Red Blood Count 5.80 4.5-5.90 10^6/uL Hemoglobin 18.8 H 13.5-17.5 g/dL Hematocrit 57.1 H 41.0-53.0 % Mean Corpuscular Volume 98.4 80.0-100.0 fL Mean Corpuscular Hemoglobin 32.4 H 28.0-32.0 pg Mean Corpuscular Hemoglobin Concent 32.9 32.0-36.0 g/dL Red Cell Distribution Width 18.3 H 11.8-14.3 % Platelet Count 73 L 140-450 10^3/uL Mean Platelet Volume 10.3 6.9-10.8 fL Neutrophils (%) (Auto) 85.0 H 37.0-80.0 % Lymphocytes (%) (Auto) 8.2 L 10.0-50.0 % Monocytes (%) (Auto) 6.4 0.0-12.0 % Eosinophils (%) (Auto) 0.1 0.0-7.0 % Basophils (%) (Auto) 0.3 0.0-2.0 % Neutrophils # (Auto) 7.7 1.6-8.6 10 ^3/uL Lymphocytes # (Auto) 0.7 0.4-5.4 10 ^3/uL Monocytes # (Auto) 0.6 0-1.3 10 ^3/uL Eosinophils # (Auto) 0 0-0.8 10 ^3/uL Basophils # (Auto) 0 0-0.2 10 ^3/uL Nucleated Red Blood Cells 0.3 % Prothrombin Time 12.5 H 9.3-11.8 sec Prothrombin Time INR 1.19 H 0.9-1.15 Activated Partial Thromboplast Time 33.5 24.5-34.5 SEC Sodium Level 138 136-145 mmol/L Potassium Level 4.2 3.5-5.1 mmol/L Chloride Level 100 98-107 mmol/L Carbon Dioxide Level 26 20-31 mmol/L Anion Gap 12 5-15 Blood Urea Nitrogen 27 H 9-23 mg/dL Creatinine 6.34 H 0.700-1.30 mg/dL Glomerular Filtration Rate Calc 10 >90 mL/min BUN/Creatinine Ratio 4.3 L 10.0-20.0 Serum Glucose 112 H 74-106 mg/dL Calcium Level 11.2 H 8.7-10.4 mg/dL Magnesium Level 2.4 1.6-2.6 mg/dL Total Bilirubin 1.5 H 0.2-1.0 mg/dL Aspartate Amino Transferase (AST) 29 13-40 U/L Alanine Aminotransferase (ALT) 29 7-40 U/L Alkaline Phosphatase 320 H 46-116 U/L B-Type Natriuretic Peptide 22.20 0-100 pg/mL Total Protein 8.5 H 5.7-8.2 g/dL Albumin 4.7 3.2-4.8 g/dL Current Medications Medications (Trade) Dose Ordered Sig/Cameron Route Start Time Stop Time Status Last Admin Acetaminophen (Tylenol Tablet) 650 mg ONCE ONCE PO 05/27/24 18:45 05/27/24 18:47 DC 05/27/24 19:09 The patient's CBC is within normal limits The chemistry panel is within normal limits. The creatinine is 6.34 and the BUN is 27 The BNP is 22.20 The patient was given acetaminophen 650 mg by mouth for the headache The patient was called as a code stroke We did speak with the neurologist who also reviewed the CT scan of the head which she stated that most likely this is not an acute stroke. We did cancel the code stroke. We did review the CT scan of the head which showed: IMPRESSION: 1. Cystic encephalomalacia along the anteromedial right frontal lobe May relate to chronic infarct. There is ex vacuo dilatation of the right lateral ventricle. 2. There are confluence hypodense changes in the right supratentorial periventricular white matter which May relate to gliosis or chronic microvascular ischemic changes. 3. Likely small chronic infarct in the right basal ganglia. The chest x-ray shows: IMPRESSION: Bronchovascular crowding due to low lung volumes. Otherwise, no evidence for acute cardiopulmonary disease. Left IJ approach hemodialysis catheter terminating over the superior cavoatrial junction. At this time, the patient was being admitted to the hospitalist. Images Reviewed?: Images reviewed and evaluated by me Time of 1ST Reevaluation: 20:25 Reevaluation 1ST: Unchanged Patient Education/Counseling: Diagnosis, Treatment, Prognosis Family Education/Counseling: No Family Present Departure 1 Departure Time of Disposition: 20:28 Impression: Primary Impression: Right sided weakness Additional Impression: ESRD on dialysis Disposition: ADMITTED INPATIENT Admit to: Tele Condition: Fair Critical Care Note Critical Care Time?: Yes (45 min-critical care time only) Stability Stability form required: Yes Unstable for transfer: Telemetry monitoring (Telemetry monitoring required), ED Physician Assesment (Clinical assesment) Heart Score Heart Score: Heart Score Response (Comments) Value History N/A 0 EKG N/A 0 Age N/A 0 Risk Factors N/A 0 Troponin N/A 0 Total 0 ADONAY RICO MD May 27, 2024 20:28
[2024-05-27] MEDS: CALCIUM CARB 500 MG CHEW TAB PO ONE (20:34)
[2024-05-27 22:48] VITALS: BP_SYST 108; BP_SYST 109; BP_DIAS 68; PULSE 51; PULSE 87; RESP 17; RESP 20; TEMP 97.7; TEMP 98.1; O2SAT 96
[2024-05-27] MEDS: ATORVASTATIN 20 MG TAB PO SCH (23:34)
[2024-05-28] VITALS (8 sets, daily range): BP systolic 17–124; BP diastolic 42–72; PULSE 54–90; RESP 18–20; TEMP 97.3–98.4; O2SAT 93–99
[2024-05-28] MEDS ORDERED: FERR1TAB17 PO (00:10)
--- NOTE | 2024-05-28 00:14 | DVHHP2 ---
History of Present Illness Reason for Visit: Right arm numbness History of Present Illness 59-year-old male presents for evaluation of right arm numbness. The patient reports intermittent right arm numbness that started today after dialysis treatment. Patient does have a history of CVA with mild left-sided deficits. Denies slurred speech or unilateral weakness. No cardiac or respiratory complaints. Past Medical History End-stage renal disease, dyslipidemia, hypertension and CVA Past Surgical History Dialysis access Family History Noncontributory Smoke: No ALCOHOL: none Drugs: None Review of Systems Review of Systems Review of systems are currently negative otherwise addressed in HPI. Allergies: Coded Allergies: NO KNOWN ALLERGIES (Unverified , 03/05/23) Medications Current Medications Medications Dose Ordered Sig/Cameron Route Start Time Stop Time Status Last Admin Dose Admin Aspirin 162 mg DAILY PO 05/28/24 10:00 UNV Sevelamer HCl 800 mg TIDWM PO 05/28/24 08:00 Clopidogrel Bisulfate 75 mg DAILY PO 05/28/24 10:00 Nifedipine 60 mg DAILY PO 05/28/24 10:00 Atorvastatin Calcium 40 mg HS PO 05/27/24 22:00 05/27/24 23:34 40 MG Ondansetron HCl 4 mg Q4HP PRN IV 05/27/24 19:45 Acetaminophen 650 mg Q6HP PRN PO 05/27/24 19:45 Nitroglycerin 0.4 mg Q5MINP PRN SL 05/27/24 19:45 Morphine Sulfate 2 mg Q30M PRN IV 05/27/24 19:45 Exam Vital Signs Vital Signs Date Time Temp Pulse Resp B/P (MAP) Pulse Ox O2 Delivery O2 Flow Rate FiO2 05/27/24 22:48 97.7 51 20 109/68 (82) 96 97.7 05/27/24 22:48 Nasal Cannula* 3 32 Exam Gen: 59-year-old male in no apparent distress. Skin: Warm, dry, normal color and texture, no rash. HEENT: Normocephalic atraumatic, mucous membranes moist and pink. Neck: Cervical and supraclavicular nodes normal without enlargement, trachea is midline, thyroid gland is normal without masses. Pulmonary: Clear to auscultation and percussion bilaterally. Cardiac: Regular rate and rhythm. No murmur Abdomen: Soft, nontender, nondistended, bowel sounds present all 4 quadrants, no guarding, no rigidity, no organomegaly. Extremities: No cyanosis, clubbing, no edema Neuro: Cranial nerves II through XII grossly intact, mild left-sided deficits from previous CVA Labs/Xrays ORDERING PHYSICIAN: ADONAY RICO MD PROCEDURE(s): CXR1 - CHEST XRAY 1 VIEW REASON: GEN WEAK ORDER NUMBER(s): [id number], ACCESSION NUMBER(s): [id number] CHEST RADIOGRAPH Indication: GEN WEAK Technique: Single frontal view of the chest was obtained Comparison: XY CHEST XRAY 1 VIEW on DOS: 08/05/23, XY CHEST PORTABLE on DOS: 07/31/23, XY CHEST PORTABLE on DOS: 07/25/23 FINDINGS: Lines and Tubes: Left-sided approach hemodialysis catheter terminating over the superior cavoatrial junction. Lungs: No focal consolidation. Bronchovascular crowding due to low lung volumes. Pleura: No effusion. No pneumothorax. Cardiomediastinal contours: Unremarkable. Mild atherosclerotic calcification and uncoiling of the aorta. Bones: No acute osseous abnormality. IMPRESSION: Bronchovascular crowding due to low lung volumes. Otherwise, no evidence for acute cardiopulmonary disease. Left IJ approach hemodialysis catheter terminating over the superior cavoatrial junction. RING PHYSICIAN: ADONAY RICO MD PROCEDURE(s): CTH - STROKE CTH REASON: R/O STROKE ORDER NUMBER(s): [id number], ACCESSION NUMBER(s): [id number] EXAM: CT STROKE CTH HISTORY: R/O STROKE COMPARISON: None TECHNIQUE: Axial images of the head were obtained and reformatted in coronal and sagittal planes. All CT scans at this medical facility are performed using dose modulation techniques as appropriate to a performed exam including the following: Automated exposure control was utilized; adjustment of the MA and/or KV according to patient size; and use of iterative reconstruction technique. CT Dose: CTDI volume is 54.05 mGy. Dose-length product is 2056.52 mGy*cm FINDINGS: There is cystic encephalomalacia along the anterior medial right frontal lobe May relate to chronic infarct. There is ex vacuo dilatation of the right lateral ventricle. There are confluence hypodense changes in the right supratentorial periventricular white matter which May relate to gliosis or chronic microvascular ischemic changes. There is also likely small chronic infarct in the right basal ganglia. There is no evidence of acute intracranial hemorrhage, mass, mass effect midline shift. There is no hydrocephalus or extra-axial fluid collection. There is partial opacification of the left ethmoid air cells. The remaining paranasal sinuses and mastoid air cells are clear. The calvarium is intact. IMPRESSION: 1. Cystic encephalomalacia along the anteromedial right frontal lobe May relate to chronic infarct. There is ex vacuo dilatation of the right lateral ventricle. 2. There are confluence hypodense changes in the right supratentorial periventricular white matter which May relate to gliosis or chronic micr ovascular ischemic changes. 3. Likely small chronic infarct in the right basal ganglia. Labs Test 05/27/24 20:07 05/27/24 17:15 Range/Units Troponin I High Sensitivity 334 *H </=54 ng/L White Blood Count 9.1 4.4-10.8 10^3/uL Red Blood Count 5.80 4.5-5.90 10^6/uL Hemoglobin 18.8 H 13.5-17.5 g/dL Hematocrit 57.1 H 41.0-53.0 % Mean Corpuscular Volume 98.4 80.0-100.0 fL Mean Corpuscular Hemoglobin 32.4 H 28.0-32.0 pg Mean Corpuscular Hemoglobin Concent 32.9 32.0-36.0 g/dL Red Cell Distribution Width 18.3 H 11.8-14.3 % Platelet Count 73 L 140-450 10^3/uL Mean Platelet Volume 10.3 6.9-10.8 fL Neutrophils (%) (Auto) 85.0 H 37.0-80.0 % Lymphocytes (%) (Auto) 8.2 L 10.0-50.0 % Monocytes (%) (Auto) 6.4 0.0-12.0 % Eosinophils (%) (Auto) 0.1 0.0-7.0 % Basophils (%) (Auto) 0.3 0.0-2.0 % Neutrophils # (Auto) 7.7 1.6-8.6 10 ^3/uL Lymphocytes # (Auto) 0.7 0.4-5.4 10 ^3/uL Monocytes # (Auto) 0.6 0-1.3 10 ^3/uL Eosinophils # (Auto) 0 0-0.8 10 ^3/uL Basophils # (Auto) 0 0-0.2 10 ^3/uL Nucleated Red Blood Cells 0.3 % Prothrombin Time 12.5 H 9.3-11.8 sec Prothrombin Time INR 1.19 H 0.9-1.15 Activated Partial Thromboplast Time 33.5 24.5-34.5 SEC Sodium Level 138 136-145 mmol/L Potassium Level 4.2 3.5-5.1 mmol/L Chloride Level 100 98-107 mmol/L Carbon Dioxide Level 26 20-31 mmol/L Anion Gap 12 5-15 Blood Urea Nitrogen 27 H 9-23 mg/dL Creatinine 6.34 H 0.700-1.30 mg/dL Glomerular Filtration Rate Calc 10 >90 mL/min BUN/Creatinine Ratio 4.3 L 10.0-20.0 Serum Glucose 112 H 74-106 mg/dL Calcium Level 11.2 H 8.7-10.4 mg/dL Magnesium Level 2.4 1.6-2.6 mg/dL Total Bilirubin 1.5 H 0.2-1.0 mg/dL Aspartate Amino Transferase (AST) 29 13-40 U/L Alanine Aminotransferase (ALT) 29 7-40 U/L Alkaline Phosphatase 320 H 46-116 U/L B-Type Natriuretic Peptide 22.20 0-100 pg/mL Total Protein 8.5 H 5.7-8.2 g/dL Albumin 4.7 3.2-4.8 g/dL Assessment/Plan Assessment/Plan Assessment Possible TIA Elevated troponin rule out NSTEMI Hypertension End-stage renal disease, dialysis dependent Plan Admit the patient to telemetry to the hospitalist Cardiology consultation Nephrology consult Resume home medications Continue treatment per orders. Plan discussed with: Patient My Orders Orders - KAVITHA NGUYỄNCNMary Procedure Category Date Status Time * Neurology Consult CONS 05/27/24 Transmitted 19:32 Aspirin Tablet PHA 05/28/24 Pending 10:00 Sevelamer (Renagel) PHA 05/28/24 In Process 08:00 Clopidogrel Bisulfate PHA 05/28/24 In Process (Plavix) 10:00 Nifedipine Er PHA 05/28/24 In Process (Procardia Xl 10:00 Atorvastatin (Lipitor) PHA 05/27/24 In Process 22:00 Basic Metabolic Panel LAB 05/28/24 Logged 04:00 Brain Head Wo Contrast MRI 05/27/24 Logged 19:32 * Cardiology Consult CONS 05/27/24 Transmitted 19:32 Admit ADMIT 05/27/24 Transmitted 19:32 Renal DIET 05/28/24 Transmitted Standard(2gna,3gk,Lopho) Breakfast Ondansetron Hcl PHA 05/27/24 In Process (Zofran) 19:45 Echo 2d Mode Cardiac US 05/27/24 Logged DOP 19:32 Condition: Fair NELLIE 05/27/24 In Process 19:32 Acetaminophen Tablet [facility] 05/27/24 In Process (Tylenol Tablet) 19:45 Bedrest With Bathroom [facility] 05/27/24 In Process Privileg 19:32 Nitroglycerin [facility] 05/27/24 In Process Sublingual (Ntrostat 19:45 Morphine Sulfate [facility] 05/27/24 In Process Injection 19:45 Stat Ekg For Chest [facility] 05/27/24 In Process Pain 19:32 Notify Md Of Changes [facility] 05/27/24 In Process From Base 19:32 Master Plumber For [facility] 05/27/24 In Process 24 Hours 19:32 Emergency Dysrhythmia [facility] 05/27/24 In Process Protocol 19:32 Rhythm Strips Once [facility] 05/27/24 In Process Every Shift 19:32 Oxygen By Nasal RT 05/27/24 Transmitted Cannula 19:32 Hepatitis B Surface LAB 05/27/24 Logged Antigen 23:58 Hepatitis C Antibody LAB 05/27/24 Logged 23:58 Date of Service: May 27, 2024 Billing Provider: KAVITHA NGUYỄN Common Visit Codes: 70483-[id number] INP/OBS CARE (HIGH) KAVITHA NGUYỄN May 28, 2024 00:14
[2024-05-28 06:34] LABS: Chloride 99 mmol/L (98-107); Potassium 4.9 mmol/L (3.5-5.1); Sodium 137 mmol/L (136-145)
[2024-05-28 06:35] LABS: Anion Gap 14 (5-15); Carbon Dioxide 24 mmol/L (20-31)
[2024-05-28 06:40] LABS: BUN/Creatinine Ratio 3.8 (10.0-20.0); Glucose 86 mg/dL (74-106)
[2024-05-28 06:49] LABS: Blood Urea Nitrogen 28 mg/dL (9-23); Calcium 11.1 mg/dL (8.7-10.4)
[2024-05-28] MEDS: SEVELAMER 800 MG TAB PO SCH (08:53)
--- NOTE | 2024-05-28 10:10 | DVHINCON2 ---
Date Seen: May 28, 2024 Referring Physician DILLON Lion Reason for Consultation Elevated troponin History of Present Illness This is a 59-year-old male patient who presents to the emergency room with chief complaint of right-sided weakness and periods of confusion for 1 hour prior to arrival. The patient's daughter at bedside reports that the patient began saying things that were not making sense, but then would be completely alert and oriented a few minutes later. The patient's daughter also mentions that the patient was having new onset right-sided weakness. EMS was called and the patient was brought to the emergency room for further evaluation. Upon emergency room arrival, a head CT was performed and revealed small chronic infarct in the right basal ganglia. A brain MRI was completed and reveals question of mild ischemia in the left high parietal lobe. Cardiology has now been consulted for elevated troponin level. The patient denies any cardiac symptoms including chest pain, shortness or breath, palpitations, or other cardiac symptoms. Initial twelve lead electrocardiogram reveals sinus tachycardia without any significant ST segment changes. Initial troponin level of 153ng/L with uptrend and peak level of 334ng/L. Significant past medical history includes hypertension, hyperlipidemia, polycystic kidney disease now with end-stage renal disease on hemodialysis, CVA x3 with left-sided deficit, previous brain aneurysm, left eye blindness, thyroid disease, and history of tobacco use. Past Medical History Past medical history reviewed. No other significant than mentioned above. Past Surgical History Right arm fistula for dialysis Left eye surgery Family History: Colon cancer Diabetes mellitus G8 FATHER, Onset:Unknown FH: cancer G8 MOTHER G8 FATHER Hypertension G8 MOTHER Family History Family history reviewed. Social History Patient has a five pack-year history, quit smoking approximately 10 years ago Patient denies any alcohol use Patient denies any drug use Allergies: Coded Allergies: NO KNOWN ALLERGIES (Unverified , 03/05/23) Home Meds Active Scripts Doxycycline Monohydrate (Doxycycline Monohydrate) 100 Mg Cap, 1 CAP PO BID for 2 Days, #4 CAP Prov:PHUONG LOPEZ RESIDENT 08/07/23 Aspirin (Aspir-81) 81 Mg Tab, 1 TAB PO DAILY, #30 TAB 5 Refills Prov:PHUONG LOPEZ RESIDENT 08/06/23 Levofloxacin Hemihydrate (LEVAQUIN 500 MG) 500 Mg Tab, 500 MG PO DAILY for 10 Days, #10 TAB Prov:JEANETTE JUNG [facility] 07/29/23 Ferrous Sulfate (FERROUS SULFATE) 325 Mg Tb, 1 TAB PO DAILY, #30 TAB 3 Refills Prov:MARTÍNEZ REINA MD 05/17/23 Pantoprazole Sodium Sesquihydr (Protonix) 40 Mg Tab, 40 MG PO DAILY, #90 TAB Prov:MARTÍNEZ REINA MD 05/17/23 Atorvastatin Calcium (Lipitor) 40 Mg Tab, 1 TAB PO QPM, #90 TAB 1 Refill Prov:CASS SHEA MD 03/09/23 Clopidogrel Bisulfate (CLOPIDOGREL) 75 Mg Tab, 75 MG PO DAILY, #30 TAB 5 Refills Prov:CASS SHEA MD 03/09/23 Sevelamer Hydrochloride (Renagel) 800 Mg Tab, 1600 MG PO TIDWM, #180 TAB 6 Refills Prov:CASS SHEA MD 03/09/23 Nifedipine (Nifedipine Er) 60 Mg Tab, 1 TAB PO DAILY, #90 TAB 1 Refill Prov:CASS SHEA MD 03/09/23 Reported Medications Ferric Citrate (Auryxia) 210 Mg Tab, 210 MG PO TID, TAB 05/28/24 Cinacalcet Hydrochloride (Sensipar) 30 Mg Tab, 30 MG PO DAILY, TAB 05/15/23 Home Meds Home medications reviewed. Current Medications Current Medications Medications (Trade) Dose Ordered Sig/Cameron Route PRN Reason Start Time Stop Time Status Last Admin Aspirin 162 mg DAILY PO 05/28/24 10:00 UNV Sevelamer HCl (Renagel) 800 mg TIDWM PO 05/28/24 08:00 05/28/24 08:53 Clopidogrel Bisulfate (Plavix) 75 mg DAILY PO 05/28/24 10:00 Nifedipine (Procardia Xl (Time-Release)) 60 mg DAILY PO 05/28/24 10:00 Atorvastatin Calcium (Lipitor) 40 mg HS PO 05/27/24 22:00 05/27/24 23:34 Ondansetron HCl (Zofran) 4 mg Q4HP PRN IV NAUSEA / VOMITING 05/27/24 19:45 Acetaminophen (Tylenol Tablet) 650 mg Q6HP PRN PO PAIN SCALE 1-3 OR TEMP>100.4 05/27/24 19:45 Nitroglycerin (Ntrostat Sublingual) 0.4 mg Q5MINP PRN SL FOR CHEST PAIN 05/27/24 19:45 Morphine Sulfate 2 mg Q30M PRN IV FOR CHEST PAIN 05/27/24 19:45 Review of Systems Constitutional: No symptom reported Ears, Nose, & Throat: No symptom reported Eyes: No symptom reported Neurological: Right-sided weakness Pulmonary/Respiratory: No symptoms reported Cardiovascular: No symptom reported Gastrointestinal: No symptom reported Genitourinary: No symptom reported Musculoskeletal: No symptom reported Skin: No symptom reported Psychiatric: No symptom reported Endocrine: No symptom reported Hematologic/Lymphatic: No symptom reported Vital Signs Vital Signs Date Time Temp Pulse Resp B/P (MAP) Pulse Ox O2 Delivery O2 Flow Rate FiO2 05/28/24 09:16 98.2 83 19 94/45 (61) 93 98.2 05/27/24 22:48 Nasal Cannula* 3 32 Physical Exam General Appearance: Cooperative. Well-developed. Well-nourished. No acute distress. Pulmonary/Respiratory: Clear, bilateral breaths sounds. Cardiovascular/Chest: Regular rate and rhythm. Peripheral Pulses: 2+ Radial (R). 2+ Radial (L). 2+ Pedal (R). 2+ Pedal (L) Abdominal Exam: Normal bowel sounds. Ankle Exam: Negative ankle edema Lower extremities: Negative lower extremity edema Neuro/Mental Status: A/OX4, coherent. Right side strength weaker than left Thoughts/Psych: Normal thought pattern. Appropriate mood and affect. Good judgment and insight. Appearance: No acute distress. Skin Exam: Normal inspection. Normal color. Warm and dry. Labs/Diagnostic Data Labs Test 05/28/24 05:13 05/27/24 20:07 05/27/24 17:15 Range/Units Sodium Level 137 136-145 mmol/L Potassium Level 4.9 3.5-5.1 mmol/L Chloride Level 99 98-107 mmol/L Carbon Dioxide Level 24 20-31 mmol/L Anion Gap 14 5-15 Blood Urea Nitrogen 28 H 9-23 mg/dL Creatinine 7.42 H 0.700-1.30 mg/dL Glomerular Filtration Rate Calc 8 >90 mL/min BUN/Creatinine Ratio 3.8 L 10.0-20.0 Serum Glucose 86 74-106 mg/dL Calcium Level 11.1 H 8.7-10.4 mg/dL Troponin I High Sensitivity 334 *H </=54 ng/L White Blood Count 9.1 4.4-10.8 10^3/uL Red Blood Count 5.80 4.5-5.90 10^6/uL Hemoglobin 18.8 H 13.5-17.5 g/dL Hematocrit 57.1 H 41.0-53.0 % Mean Corpuscular Volume 98.4 80.0-100.0 fL Mean Corpuscular Hemoglobin 32.4 H 28.0-32.0 pg Mean Corpuscular Hemoglobin Concent 32.9 32.0-36.0 g/dL Red Cell Distribution Width 18.3 H 11.8-14.3 % Platelet Count 73 L 140-450 10^3/uL Mean Platelet Volume 10.3 6.9-10.8 fL Neutrophils (%) (Auto) 85.0 H 37.0-80.0 % Lymphocytes (%) (Auto) 8.2 L 10.0-50.0 % Monocytes (%) (Auto) 6.4 0.0-12.0 % Eosinophils (%) (Auto) 0.1 0.0-7.0 % Basophils (%) (Auto) 0.3 0.0-2.0 % Neutrophils # (Auto) 7.7 1.6-8.6 10 ^3/uL Lymphocytes # (Auto) 0.7 0.4-5.4 10 ^3/uL Monocytes # (Auto) 0.6 0-1.3 10 ^3/uL Eosinophils # (Auto) 0 0-0.8 10 ^3/uL Basophils # (Auto) 0 0-0.2 10 ^3/uL Nucleated Red Blood Cells 0.3 % Prothrombin Time 12.5 H 9.3-11.8 sec Prothrombin Time INR 1.19 H 0.9-1.15 Activated Partial Thromboplast Time 33.5 24.5-34.5 SEC Magnesium Level 2.4 1.6-2.6 mg/dL Total Bilirubin 1.5 H 0.2-1.0 mg/dL Aspartate Amino Transferase (AST) 29 13-40 U/L Alanine Aminotransferase (ALT) 29 7-40 U/L Alkaline Phosphatase 320 H 46-116 U/L B-Type Natriuretic Peptide 22.20 0-100 pg/mL Total Protein 8.5 H 5.7-8.2 g/dL Albumin 4.7 3.2-4.8 g/dL Assessment Rule out cerebrovascular accident versus transient ischemic attack NSTEMI, likely type II secondary to above Acute on chronic HFrEF, NYHA class II, newly diagnosed Hypertension Hyperlipidemia End-stage renal disease on hemodialysis Cerebrovascular accident X3 (on Plavix and ASA) Hx brain aneurysm Thyroid disease History of tobacco use Plan/Recommendation We will continue with the following plan/recommendations (Dr. Boyer): * Transthoracic echocardiogram reveals EF 40% * Initiate guideline directed medical therapy for CHF as tolerated * Avoid JUVENTINO/ARNI/ARB and spironolactone given renal disease * Strict intake and output, daily weights, maintain fluid restriction * Aggressive blood pressure control * Lipid-lowering agent * Cardiac surveillance: Notify of any ECG changes including arrhythmias * Continue dual antiplatelet therapy as per Neurology * Neurology consult and recommendations Patient seen and examined at bedside with . Elevated troponin level likely secondary to CVA/TIA. Given that the patient has newly diagnosed HFrEF, the patient may benefit from ischemic workup in the outpatient setting. There is no further inpatient cardiac workup indicated at this time. Please reconsult if needed. Thank you for allowing us to care for this patient. Please call with any questions or concerns. Critical care time spent: 44 minutes This medical document was created using an electronic medical record system with voice recognition software and computerized dictation system. Although this document has been carefully reviewed, there might still be some phonetic and typographical errors. Occasional wrong-word or ``sound-alike substitutions may have occurred due to the inherent limitations of voice recognition software. These areas are purely typographical due to imperfections of the software programs and do not reflect any compromise in the patient's medical care. Please read the chart carefully and recognize, using context, where these substitutions have occurred. Plan discussed with: Patient NYHA Physical activity limitations: Class2(Slight)fatigue,sob (palpitatns, angina w activityv) Date of Service: May 28, 2024 Billing Provider: HEATHER BOYER MD Cardiology Common Codes: [id number] INP/OBS CARE (High) Cardiology Consultation Codes: [id number] CONSULT <45MIN PAMELA BAUGH May 28, 2024 10:10
[2024-05-28 11:18] LABS: Hepatitis B Surface Antigen Negative (Negative)
[2024-05-28 11:19] LABS: Hepatitis C Antibody Reactive (Negative)
--- NOTE | 2024-05-28 11:30 | DVHPN2 ---
Reviewed: Care Plan, H&P, Labs, Medications, Previous Orders, Radiology Changes from previous H/P or p: No Changes Objective Vitals Vital Signs Date Time Temp Pulse Resp B/P (MAP) Pulse Ox O2 Delivery O2 Flow Rate FiO2 05/28/24 09:16 98.2 83 19 94/45 (61) 93 98.2 05/27/24 22:48 Nasal Cannula* 3 32 Intake/Output Intake and Output 05/28/24 07:00 Intake Total 200 ml Output Total 0 ml Balance 200 ml Intake Oral 200 ml Output Urine Total 0 ml Medications Current Medications Medications Dose Ordered Sig/Cameron Route Start Time Stop Time Status Last Admin Dose Admin Aspirin 162 mg DAILY PO 05/28/24 10:00 UNV Sevelamer HCl 800 mg TIDWM PO 05/28/24 08:00 05/28/24 08:53 800 MG Clopidogrel Bisulfate 75 mg DAILY PO 05/28/24 10:00 Nifedipine 60 mg DAILY PO 05/28/24 10:00 Atorvastatin Calcium 40 mg HS PO 05/27/24 22:00 05/27/24 23:34 40 MG Ondansetron HCl 4 mg Q4HP PRN IV 05/27/24 19:45 Acetaminophen 650 mg Q6HP PRN PO 05/27/24 19:45 Nitroglycerin 0.4 mg Q5MINP PRN SL 05/27/24 19:45 Morphine Sulfate 2 mg Q30M PRN IV 05/27/24 19:45 Laboratory Results Laboratory Tests 05/27/24 17:15 05/28/24 05:13 Chemistry Test 05/27/24 17:15 05/28/24 05:13 Albumin 4.7 g/dL (3.2-4.8) Calcium Level 11.2 mg/dL (8.7-10.4) H 11.1 mg/dL (8.7-10.4) H Magnesium Level 2.4 mg/dL (1.6-2.6) Total Protein 8.5 g/dL (5.7-8.2) H Coagulation Test 05/27/24 17:15 Prothrombin Time 12.5 sec (9.3-11.8) H Prothrombin Time INR 1.19 (0.9-1.15) H Activated Partial Thromboplast Time 33.5 SEC (24.5-34.5) Cardiac Markers Test 05/27/24 17:15 B-Type Natriuretic Peptide 22.20 pg/mL (0-100) LFT Test 05/27/24 17:15 Alanine Aminotransferase (ALT) 29 U/L (7-40) Alkaline Phosphatase 320 U/L (46-116) H Aspartate Amino Transferase (AST) 29 U/L (13-40) Total Bilirubin 1.5 mg/dL (0.2-1.0) H Labs and/or images reviewed: Labs reviewed by me, Image(s) reviewed by me Assessment/Plan Assessment/Plan Acute toxic/metabolic encephalopathy, R/O stroke versus TIA, CT head shows old infarcts, no new changes, MRI brain pending, Neurology consult for Dr. Varner who ESRD on Hemodialysis on (sat/sat/sat) Polycystic kidney disease History of brain aneurysm Non ST-elevation [place] with a troponin of 383 probably type 2, cardiology consult Dyslipidemia Hypotension Mild malnutrition Hypercholesterolemia History of CVA with left-sided weakness ESRD hypertension cholesterol Chest x-ray negative Time spent 65 minutes Patient is full code Advanced care planning time 20 minutes Plan discussed with: Patient Date of Service: May 28, 2024 Billing Provider: JENAE MANCERA MD Common Visit Codes: [id number] CARE 30-74 MIN JENAE MANCERA MD May 28, 2024 11:30
--- NOTE | 2024-05-28 11:36 | DVH ---
PROCEDURE: MRI BRAIN HEAD WO CONTRAST INDICATION: TIA EXAM DATE: 05/28/2024 10:44 AM COMPARISON: MRI BRAIN HEAD WO CONTRAST on DOS: 08/03/23, CT HEAD WITHOUT CONTRAST on DOS: 08/01/23 TECHNIQUE: MRI of the brain without intravenous contrast. FINDINGS: Exam is limited by significant motion. There is questionable mild restricted diffusion in the left high parietal lobe. No acute intracranial hemorrhage. No extra-axial fluid collection. No midline shift. No herniation. Stable configuration of the lateral ventricles which are dilated. Old right frontal infarct. Moderate changes of chronic microvascular ischemic disease. The major vascular flow voids are present. Left frontoethmoidal sinus disease. The surrounding soft tissues and osseous structures are unremark able. IMPRESSION: 1. Limited by significant motion. Question of mild ischemia in the left high parietal lobe. Old righ t frontal infarct. Moderate changes of chronic microvascular ischemic disease. Stable configuration of the lateral ventricles. Consider follow-up exam when patient is able to remain still. HS:Y
[2024-05-28] MEDS: CLOPIDOGREL BISULFATE 75 MG TAB PO SCH (12:19)
[2024-05-28] MEDS: NIFEdipine ER 30 MG TAB PO SCH (12:19)
--- NOTE | 2024-05-28 12:48 | DVHSR ---
APPROVED REPORT EXAM: Two-dimensional and M-mode echocardiogram with Doppler and color Doppler. Blood Pressure: 124/60 mmHg INDICATION F RISK FACTORS Height: 6', Weight: 158 DIMENSIONS LVDd4.7 (3.8-5.7cm)LA (2D)4.3 (1.9-4.0cm)Aortic Root3.7 (2.0-3.7cm) LVDs3.7 (2.5-4.0cm)LA (MM) (1.9-4.0cm)Aortic Cusp Exc2.1 (1.5-2.0cm) EF (%) 41.0 (55-70%)Rt. Atrium (1.9-4.0cm)Asc. Aorta cm IVSd0.8 (0.7-1.1cm)RV (D) (1.8-2.4cm) PWd0.9 (0.7-1.1cm) Mitral Valve MitralMitral Stenosis E wave0.45m/sMV Mean GR.mmHg A wave0.92m/sMV Peak GR.mmHg E/A ratio0.52D MVAcm2 DECEL [id number] 1/2 Timems Aortic Valve Aortic ValveAortic Stenosis V10.81m/Gabby Mean GR.8mmHg V21.74m/Gabby Peak GR.12mmHg LVOT Diameter2.4 (1.8-2.4cm)Doppler AVA2.10cm2 2D AVA2.24cm2 AI P 1/2 Sowq724.22ms Pulmonic Valve V20.92m/s Other Information Technically limited study due to body habitus. Conclusion Moderately dilated left ventricle. Moderately reduced left ventricular systolic function estimated e jection fraction of 40%. There is a grade 1 diastolic dysfunction. Normal right ventricular size and dimension. Normal right ventricular systolic function. The aortic valve is thickened and sclerotic. There is mild mitral valve regurgitation. Tricuspid valve is normal in structure and function. The pulmonary valve is grossly normal. No pericardial effusion.
[2024-05-28] MEDS: ASPirin 81 mg TAB PO SCH (17:51)
[2024-05-28] MEDS: hydrALAZINE HCL 10 MG TAB PO SCH (22:07)
[2024-05-29] VITALS (8 sets, daily range): BP systolic 91–114; BP diastolic 58–69; PULSE 67–80; RESP 16–20; TEMP 97.4–98.2; O2SAT 94–97
--- NOTE | 2024-05-29 09:18 | ECG ---
[facility] Test Date: 2024-05-27 Test Time: 16:29:06 Pat Name: ARVIND MANCILLA Department: ED Room: 0270T A Gender: M Investigations Chief: BART : 1965 Requested By: ADONAY RICO Order Number: [id number] Reading MD: Juan J Bower Measurements Intervals Kuna Rate: 104 P: 26 VA: 167 QRS: -46 QRSD: 113 T: 123 QT: 348 QTc: 458 Interpretive Statements Sinus tachycardia Left anterior fascicular block Probable left ventricular hypertrophy Anterior Q waves, possibly due to LVH Abnormal T, consider ischemia, lateral leads Baseline wander in lead(s) V1 Electronically Signed On 05-29-2024 12:46:30 PST by Juan J Bower Please click the below link to view image of tracing.
[2024-05-29] MEDS: ISOSORBIDE MONONITRATE ER 60 MG TAB PO SCH (10:49)
[2024-05-29] MEDS: METOPROLOL SUCCINATE XL 50 MG TAB PO SCH (10:50)
--- NOTE | 2024-05-29 11:18 | DVHPN2 ---
Reviewed: Care Plan, H&P, Labs, Medications, Previous Orders, Radiology Changes from previous H/P or p: No Changes Objective Vitals Vital Signs Date Time Temp Pulse Resp B/P (MAP) Pulse Ox O2 Delivery O2 Flow Rate FiO2 05/29/24 10:50 79 114/69 05/29/24 09:00 98.0 20 94 98.0 05/28/24 20:00 Nasal Cannula* 3 32 Intake/Output Intake and Output 05/29/24 07:00 Intake Total 600 ml Balance 600 ml Intake Oral 600 ml Medications Current Medications Medications Dose Ordered Sig/Cameron Route Start Time Stop Time Status Last Admin Dose Admin Aspirin 162 mg DAILY PO 05/28/24 10:00 05/29/24 10:47 162 MG Sevelamer HCl 800 mg TIDWM PO 05/28/24 08:00 05/29/24 09:24 800 MG Clopidogrel Bisulfate 75 mg DAILY PO 05/28/24 10:00 05/29/24 10:49 75 MG Atorvastatin Calcium 40 mg HS PO 05/27/24 22:00 05/28/24 22:01 40 MG Ondansetron HCl 4 mg Q4HP PRN IV 05/27/24 19:45 Acetaminophen 650 mg Q6HP PRN PO 05/27/24 19:45 Nitroglycerin 0.4 mg Q5MINP PRN SL 05/27/24 19:45 Morphine Sulfate 2 mg Q30M PRN IV 05/27/24 19:45 Hydralazine HCl 10 mg Q8HR PO 05/28/24 22:00 05/29/24 05:39 10 MG Isosorbide Mononitrate 30 mg DAILY PO 05/29/24 10:00 05/29/24 10:49 30 MG Metoprolol Succinate 25 mg DAILY PO 05/29/24 10:00 05/29/24 10:50 25 MG Laboratory Results Laboratory Tests 05/27/24 17:15 05/28/24 05:13 Labs and/or images reviewed: Labs reviewed by me, Image(s) reviewed by me Assessment/Plan Assessment/Plan Acute toxic/metabolic encephalopathy, R/O stroke versus TIA, CT head shows old infarcts, no new changes, MRI brain shows no new changes, Neurology consult for Dr. Varner appreciated ESRD on Hemodialysis on (sat/sat/sat), consult for admitting manager Polycystic kidney disease History of brain aneurysm Non ST-elevation [place] with a troponin of 383 probably type 2, cardiology consult appreciated Acute on chronic systolic congestive heart failure ejection fraction 40 percent Dyslipidemia Hypotension Mild malnutrition Hypercholesterolemia History of CVA with left-sided weakness September 2023 seen in [facility] went to rehab center for a month in Monitor Chest x-ray negative Time spent 65 minutes Patient is full code Advanced care planning time 20 minutes Plan discussed with: Patient My Orders Orders - JENAE MANCERA MD Procedure Category Date Status Time * Neurology Consult CONS 05/28/24 Transmitted 11:32 Date of Service: May 29, 2024 Billing Provider: JENAE MANCERA MD Common Visit Codes: [id number] CARE 30-74 MIN JENAE MANCERA MD May 29, 2024 11:18
--- NOTE | 2024-05-29 12:48 | DVHINCON2 ---
Date of service: May 29, [address] edmond Reason for Consultation ESRD History of Present Illness 59-year-old male past medical history of end-stage renal disease due to polycystic kidney disease, hypertension, history of stroke presents to the hospital complaining of right arm weakness. He has a history of left residual weakness. Nephrology consulted for dialysis. Patient is status post MRI yesterday Allergies: Coded Allergies: NO KNOWN ALLERGIES (Unverified , 03/05/23) Home Meds Active Scripts Aspirin (Aspir-81) 81 Mg Tab, 1 TAB PO DAILY, #30 TAB 5 Refills Prov:PHUONG LOPEZ 08/06/23 Pantoprazole Sodium Sesquihydr (Protonix) 40 Mg Tab, 40 MG PO DAILY, #90 TAB Prov:MARTÍNEZ REINA MD 05/17/23 Atorvastatin Calcium (Lipitor) 40 Mg Tab, 1 TAB PO QPM, #90 TAB 1 Refill Prov:CASS SHEA MD 03/09/23 Clopidogrel Bisulfate (CLOPIDOGREL) 75 Mg Tab, 75 MG PO DAILY, #30 TAB 5 Refills Prov:CASS SHEA MD 03/09/23 Sevelamer Hydrochloride (Renagel) 800 Mg Tab, 1600 MG PO TIDWM, #180 TAB 6 Refi lls Prov:CASS SHEA MD 03/09/23 Nifedipine (Nifedipine Er) 60 Mg Tab, 1 TAB PO DAILY, #90 TAB 1 Refill Prov:CASS SHEA MD 03/09/23 Reported Medications Ferric Citrate (Auryxia) 210 Mg Tab, 2 TAB PO TIDWM, TAB 05/28/24 Cinacalcet Hydrochloride (Sensipar) 30 Mg Tab, 2 TAB PO DAILY, TAB 05/15/23 Current Medications Family History: Colon cancer Diabetes mellitus G8 FATHER, Onset:Unknown FH: cancer G8 MOTHER G8 FATHER Hypertension G8 MOTHER H&P Exam Vital Signs/I&O Vital Sign Date Time Temp Pulse Resp B/P (MAP) Pulse Ox O2 Delivery O2 Flow Rate FiO2 05/30/24 10:00 82 117/75 05/30/24 09:00 97.9 16 93 97.9 05/30/24 07:48 Room Air* 0 21 Intake and Output 05/29/24 05/30/24 19:00 07:00 Intake Total 800 ml 250 ml Output Total 0 ml Balance 800 ml 250 ml Intake Oral 800 ml 250 ml Output Urine Total 0 ml Physical Exam middle age male NAD frail AVF no edema Labs/Diagnostic Data Labs/Diagnostic Data Laboratory Tests Test 05/29/24 18:14 05/28/24 05:13 05/27/24 20:07 05/27/24 18:17 Range/Units Sodium Level 137 136-145 mmol/L Potassium Level 4.9 3.5-5.1 mmol/L Chloride Level 99 98-107 mmol/L Carbon Dioxide Level 24 20-31 mmol/L Anion Gap 14 5-15 Blood Urea Nitrogen 28 H 9-23 mg/dL Creatinine 7.42 H 0.700-1.30 mg/dL Glomerular Filtration Rate Calc 8 >90 mL/min BUN/Creatinine Ratio 3.8 L 10.0-20.0 Serum Glucose 86 74-106 mg/dL Calcium Level 11.1 H 8.7-10.4 mg/dL Hepatitis B Surface Antigen Negative Negative Hepatitis C Antibody Reactive *A Negative Troponin I High Sensitivity 334 *H 214 *H </=54 ng/L Test 05/27/24 17:15 Range/Units White Blood Count 9.1 4.4-10.8 10^3/uL Red Blood Count 5.80 4.5-5.90 10^6/uL Hemoglobin 18.8 H 13.5-17.5 g/dL Hematocrit 57.1 H 41.0-53.0 % Mean Corpuscular Volume 98.4 80.0-100.0 fL Mean Corpuscular Hemoglobin 32.4 H 28.0-32.0 pg Mean Corpuscular Hemoglobin Concent 32.9 32.0-36.0 g/dL Red Cell Distribution Width 18.3 H 11.8-14.3 % Platelet Count 73 L 140-450 10^3/uL Mean Platelet Volume 10.3 6.9-10.8 fL Neutrophils (%) (Auto) 85.0 H 37.0-80.0 % Lymphocytes (%) (Auto) 8.2 L 10.0-50.0 % Monocytes (%) (Auto) 6.4 0.0-12.0 % Eosinophils (%) (Auto) 0.1 0.0-7.0 % Basophils (%) (Auto) 0.3 0.0-2.0 % Neutrophils # (Auto) 7.7 1.6-8.6 10 ^3/uL Lymphocytes # (Auto) 0.7 0.4-5.4 10 ^3/uL Monocytes # (Auto) 0.6 0-1.3 10 ^3/uL Eosinophils # (Auto) 0 0-0.8 10 ^3/uL Basophils # (Auto) 0 0-0.2 10 ^3/uL Nucleated Red Blood Cells 0.3 % Prothrombin Time 12.5 H 9.3-11.8 sec Prothrombin Time INR 1.19 H 0.9-1.15 Activated Partial Thromboplast Time 33.5 24.5-34.5 SEC Sodium Level 138 136-145 mmol/L Potassium Level 4.2 3.5-5.1 mmol/L Chloride Level 100 98-107 mmol/L Carbon Dioxide Level 26 20-31 mmol/L Anion Gap 12 5-15 Blood Urea Nitrogen 27 H 9-23 mg/dL Creatinine 6.34 H 0.700-1.30 mg/dL Glomerular Filtration Rate Calc 10 >90 mL/min BUN/Creatinine Ratio 4.3 L 10.0-20.0 Serum Glucose 112 H 74-106 mg/dL Calcium Level 11.2 H 8.7-10.4 mg/dL Magnesium Level 2.4 1.6-2.6 mg/dL Total Bilirubin 1.5 H 0.2-1.0 mg/dL Aspartate Amino Transferase (AST) 29 13-40 U/L Alanine Aminotransferase (ALT) 29 7-40 U/L Alkaline Phosphatase 320 H 46-116 U/L Troponin I High Sensitivity 153 *H </=54 ng/L B-Type Natriuretic Peptide 22.20 0-100 pg/mL Total Protein 8.5 H 5.7-8.2 g/dL Albumin 4.7 3.2-4.8 g/dL Assessment End-stage renal disease Right arm weakness HD today Avoid hypotension renal diet s/p MRI brain w/u as per primary team Plan discussed with: Patient DAISYMikkiLUDIVINA MD May 29, 2024 12:48
[2024-05-29] MEDS: SODIUM CHL 0.9% 1000 ML BAG XX ONE (13:45)
[2024-05-29] MEDS: ALBUMIN 25% 100 ML IV ONE (17:30)
[2024-05-29] MEDS: HEPARIN SODIUM (PORCINE) 5000 UNITS/ML 1ML VIAL IV ONE (18:40)
[2024-05-30] VITALS (9 sets, daily range): BP systolic 96–118; BP diastolic 56–76; PULSE 65–88; RESP 16–18; TEMP 97.3–97.9; O2SAT 92–96
--- NOTE | 2024-05-30 10:57 | DVHPN2 ---
Reviewed: Care Plan, H&P, Labs, Medications, Previous Orders, Radiology Changes from previous H/P or p: No Changes Objective Vitals Vital Signs Date Time Temp Pulse Resp B/P (MAP) Pulse Ox O2 Delivery O2 Flow Rate FiO2 05/30/24 09:00 97.9 82 16 117/75 (89) 93 97.9 05/30/24 07:48 Room Air* 0 21 Intake/Output Intake and Output 05/30/24 07:00 Intake Total 1050 ml Output Total 0 ml Balance 1050 ml Intake Oral 1050 ml Output Urine Total 0 ml Medications Current Medications Medications Dose Ordered Sig/Cameron Route Start Time Stop Time Status Last Admin Dose Admin Aspirin 162 mg DAILY PO 05/28/24 10:00 05/29/24 10:47 162 MG Sevelamer HCl 800 mg TIDWM PO 05/28/24 08:00 05/30/24 08:20 800 MG Clopidogrel Bisulfate 75 mg DAILY PO 05/28/24 10:00 05/29/24 10:49 75 MG Atorvastatin Calcium 40 mg HS PO 05/27/24 22:00 05/29/24 21:24 40 MG Ondansetron HCl 4 mg Q4HP PRN IV 05/27/24 19:45 Acetaminophen 650 mg Q6HP PRN PO 05/27/24 19:45 Nitroglycerin 0.4 mg Q5MINP PRN SL 05/27/24 19:45 Morphine Sulfate 2 mg Q30M PRN IV 05/27/24 19:45 Hydralazine HCl 10 mg Q8HR PO 05/28/24 22:00 05/29/24 05:39 10 MG Isosorbide Mononitrate 30 mg DAILY PO 05/29/24 10:00 05/29/24 10:49 30 MG Metoprolol Succinate 25 mg DAILY PO 05/29/24 10:00 05/29/24 10:50 25 MG Laboratory Results Laboratory Tests 05/27/24 17:15 05/28/24 05:13 Labs and/or images reviewed: Labs reviewed by me, Image(s) reviewed by me Assessment/Plan Assessment/Plan Acute toxic/metabolic encephalopathy, R/O stroke versus TIA, CT head shows old infarcts, no new changes, MRI brain shows no new changes, Neurology consult for Dr. Varner appreciated ESRD on Hemodialysis on (sat/sat/sat), consult for teletype technician Polycystic kidney disease Acute right-sided weakness ruled out TIA/ CVA History of brain aneurysm Non ST-elevation [place] with a troponin of 383 probably type 2, cardiology consult appreciated no further cardiac work up Acute on chronic systolic congestive heart failure ejection fraction 40 % Dyslipidemia Hypotension Mild malnutrition Hypercholesterolemia History of CVA with left-sided weakness four years ago History of COVID pneumonia transferred from [facility] to [facility] September 2023, then went to rehab center for a month in [place] Chest x-ray negative Time spent 55 minutes Patient is full code Advanced care planning time 20 minutes Daughter Victorina at bedside Plan discussed with: Patient My Orders Orders - JENAE MANCERA MD Procedure Category Date Status Time *Dr. [facility] CONS 05/29/24 Transmitted -[facility] 11:18 Initiate [facility] 05/30/24 In Process Prophylaxis 09:23 Date of Service: May 30, 2024 Billing Provider: JENAE MANCERA MD Common Visit Codes: [id number] INP/OBS CARE(HIGH) Secondary Visit Codes: [id number] CARE PLAN 30 MINUTES JENAE MANCERA MD May 30, 2024 10:57
--- NOTE | 2024-05-30 13:40 | DVHPN2 ---
Progress Note - Dictate Date Seen: May 30, 2024 Medical Necessity Reason Pt with a Central, PICC or Fol: No vital signs Vital Sign Date Time Temp Pulse Resp B/P (MAP) Pulse Ox O2 Delivery O2 Flow Rate FiO2 05/30/24 10:00 82 117/75 05/30/24 09:00 97.9 16 93 97.9 05/30/24 07:48 Room Air* 0 21 Total Intake and Output 05/29/24 05/29/24 05/30/24 15:00 23:00 07:00 Intake Total 800 ml 250 ml Output Total 0 ml Balance 800 ml 250 ml medications Current Medications Medications Dose Ordered Sig/Cameron Route Start Time Stop Time Status Last Admin Dose Admin Aspirin 162 mg DAILY PO 05/28/24 10:00 05/30/24 10:00 Sevelamer HCl 800 mg TIDWM PO 05/28/24 08:00 05/30/24 12:40 Clopidogrel Bisulfate 75 mg DAILY PO 05/28/24 10:00 05/30/24 10:00 Atorvastatin Calcium 40 mg HS PO 05/27/24 22:00 05/29/24 21:24 Ondansetron HCl 4 mg Q4HP PRN IV 05/27/24 19:45 Acetaminophen 650 mg Q6HP PRN PO 05/27/24 19:45 Nitroglycerin 0.4 mg Q5MINP PRN SL 05/27/24 19:45 Morphine Sulfate 2 mg Q30M PRN IV 05/27/24 19:45 Hydralazine HCl 10 mg Q8HR PO 05/28/24 22:00 05/29/24 05:39 Isosorbide Mononitrate 30 mg DAILY PO 05/29/24 10:00 05/30/24 10:00 Metoprolol Succinate 25 mg DAILY PO 05/29/24 10:00 05/30/24 10:00 objective middle age male NAD frail AVF no edema laboratory and microbiology Laboratory Tests 05/28/24 05:13 05/27/24 17:15 Test 05/28/24 05:13 Range/Units Serum Glucose 86 74-106 mg/dL Assessment/Plan End-stage renal disease Right arm weakness HD saturday Avoid hypotension renal diet s/p MRI brain w/u as per primary team Plan discussed with: Patient LUDIVINA TABARES MD May 30, 2024 13:40
[2024-05-31] VITALS (8 sets, daily range): BP systolic 106–156; BP diastolic 25–64; PULSE 64–75; RESP 16–20; TEMP 97.2–98; O2SAT 92–98
--- NOTE | 2024-05-31 09:37 | DVHPN2 ---
Reviewed: Care Plan, H&P, Labs, Medications, Previous Orders, Radiology Changes from previous H/P or p: No Changes Objective Vitals Vital Signs Date Time Temp Pulse Resp B/P (MAP) Pulse Ox O2 Delivery O2 Flow Rate FiO2 05/31/24 08:37 97.4 75 20 107/43 (64) 97 97.4 05/30/24 19:39 Room Air* 0 21 Intake/Output Intake and Output 05/31/24 07:00 Intake Total 1298 ml Output Total 0 ml Balance 1298 ml Intake Oral 1298 ml Output Urine Total 0 ml Medications Current Medications Medications Dose Ordered Sig/Cameron Route Start Time Stop Time Status Last Admin Dose Admin Aspirin 162 mg DAILY PO 05/28/24 10:00 05/30/24 10:00 162 MG Sevelamer HCl 800 mg TIDWM PO 05/28/24 08:00 05/31/24 07:33 800 MG Clopidogrel Bisulfate 75 mg DAILY PO 05/28/24 10:00 05/30/24 10:00 75 MG Atorvastatin Calcium 40 mg HS PO 05/27/24 22:00 05/30/24 21:19 40 MG Ondansetron HCl 4 mg Q4HP PRN IV 05/27/24 19:45 Acetaminophen 650 mg Q6HP PRN PO 05/27/24 19:45 Nitroglycerin 0.4 mg Q5MINP PRN SL 05/27/24 19:45 Morphine Sulfate 2 mg Q30M PRN IV 05/27/24 19:45 Hydralazine HCl 10 mg Q8HR PO 05/28/24 22:00 05/29/24 05:39 10 MG Isosorbide Mononitrate 30 mg DAILY PO 05/29/24 10:00 05/30/24 10:00 30 MG Metoprolol Succinate 25 mg DAILY PO 05/29/24 10:00 05/30/24 10:00 25 MG Laboratory Results Laboratory Tests 05/27/24 17:15 05/28/24 05:13 Labs and/or images reviewed: Labs reviewed by me, Image(s) reviewed by me Assessment/Plan Assessment/Plan Acute toxic/metabolic encephalopathy, R/O stroke versus TIA, CT head shows old infarcts, no new changes, MRI brain shows no new changes, Neurology consult for Dr. Varner appreciated ESRD on Hemodialysis on (sat/sat/sat), consult for children's tutor Polycystic kidney disease Acute right-sided weakness ruled out TIA/ CVA History of brain aneurysm Non ST-elevation [place] with a troponin of 383 probably type 2, cardiology consult appreciated no further cardiac work up Acute on chronic systolic congestive heart failure ejection fraction 40 % Dyslipidemia Hypotension Mild malnutrition Hypercholesterolemia History of CVA with left-sided weakness four years ago History of COVID pneumonia transferred from [facility] to [facility] September 2023, then went to rehab center for a month in [place] Chest x-ray negative Time spent 55 minutes Patient is full code Advanced care planning time 20 minutes Daughter Victorina at bedside Plan discussed with: Patient My Orders Orders - JENAE MANCERA MD Procedure Category Date Status Time Pt Request For Service PT 05/30/24 Logged 10:42 Date of Service: May 31, 2024 Billing Provider: JENAE MANCERA MD Common Visit Codes: [id number] INP/OBS CARE(HIGH) JENAE MANCERA MD May 31, 2024 09:37
--- NOTE | 2024-05-31 10:58 | DVHINCON2 ---
Date of service: May 31, [address] Beverly Reason for Consultation TIA with right-sided weakness History of Present Illness Mr. Gamez is a 59 years old right-handed gentleman with a history of dyslipidemia, coronary artery disease, heart attack, AAA, progressive kidney disease, brain aneurysm/SAH, stroke with residual left-sided weakness, hyperparathyroidism, GI bleeding, end-stage kidney failure on hemodialysis, he was brought to the hospital on 05/27/24 with a chief complaint of right-sided weakness. At this time, he was alert and oriented x3, but is a poor historian, the following information is obtained from him and his daughter, I have also talked to Dr. Beverly and his nurse chart were reviewed I saw him on 08/02/2023 for stroke (MRI: Negative) On 05/27/2024, after hemodialysis, according to his daughter, the patient was developed right arm weakness in that he was not able to use room properly, and he spilled food, the patient insist he also had discomfort and weakness in the right arm than leg, he also relates his problems have resolved in the hospital in he had a burst of the aneurysm in 2001, treated conservatively, and he has mild residual left-sided weakness According to his daughter, he had COVID-19 and three strokes in 2019, that worsened the left-sided weakness He could not extend the left elbow, according to his daughter, this was due to the stroke in 2019 Hepatitis panel, 05/28/2024: Hep C Ab: Positive WBC/HB/PLT/MCV, 05/27/2024, 9.1/80.8/73/98.4 PT/INR/PTT, 05/27/2024: 12.5/1.19/33.5 BUN/CR, 05/27/2024: 27/6.34 GFR, 05/27/2024: 10 TBI/AST/ALT/AP, 05/27/2024: 1.5/29/29/320 TG/CHO L/LDL/HDL, 08/01/2023: 119/<50/13/<5 Extremity venous study, 08/02/2022: No right or left femoropopliteal venous thrombosis Echocardiogram, 05/28/2024: Conclusion Moderately dilated left ventricle. Moderately reduced left ventricular systolic function estimated ejection fraction of 40%. There is a grade 1 diastolic dysfunction. Normal right ventricular size and dimension. Normal right ventricular systolic function. The aortic valve is thickened and sclerotic. There is mild mitral valve regurgitation. Tricuspid valve is normal in structure and function. The pulmonary valve is grossly normal. No pericardial effusion. Carotid Doppler, 08/03/2023: Less than 50% stenosis of bilateral carotid system based on peak systolic velocity criteria CT head, 08/01/2023: No evidence of acute intracranial abnormality. Old right MCA infarct. Left paranasal sinus disease CT head, 05/27/2024, 1. Cystic encephalomalacia along the anteromedial right frontal lobe May relate to chronic infarct. There is ex vacuo dilatation of the right lateral ventricle. 2. There are confluence hypodense changes in the right supratentorial periventricular white matter which May relate to gliosis or ch ronic microvascular ischemic changes. 3. Likely small chronic infarct in the right basal ganglia MRI head, 08/03/2023: No acute infarct, intracranial hemorrhage, mass effect, or hydrocephalus (I see right frontal chronic stroke with associated ventricular d ilatation) MRI head, 05/28/2024: Limited by significant motion. Question of mild ischemia in the left high parietal lobe. Old right frontal infarct. Moderate changes of chronic microvascular ischemic disease. Stable configuration of the lateral ventricles. 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 Daughter of brain aneurysm Social History He was a tobacco smoker, no history of alcohol recreational substance abuse Allergies: Coded Allergies: NO KNOWN ALLERGIES (Unverified , 03/05/23) Home Meds Active Scripts Aspirin (Aspir-81) 81 Mg Tab, 1 TAB PO DAILY, #30 TAB 5 Refills Prov:PHUONG LOPEZ RESIDENT 08/06/23 Pantoprazole Sodium Sesquihydr (Protonix) 40 Mg Tab, 40 MG PO DAILY, #90 TAB Prov:MARTÍNEZ REINA MD 05/17/23 Atorvastatin Calcium (Lipitor) 40 Mg Tab, 1 TAB PO QPM, #90 TAB 1 Refill Prov:CASS SHEA MD 03/09/23 Clopidogrel Bisulfate (CLOPIDOGREL) 75 Mg Tab, 75 MG PO DAILY, #30 TAB 5 Refills Prov:CASS SHEA MD 03/09/23 Sevelamer Hydrochloride (Renagel) 800 Mg Tab, 1600 MG PO TIDWM, #180 TAB 6 Refills Prov:CASS SHEA MD 03/09/23 Nifedipine (Nifedipine Er) 60 Mg Tab, 1 TAB PO DAILY, #90 TAB 1 Refill Prov:CASS SHEA MD 03/09/23 Reported Medications Ferric Citrate (Auryxia) 210 Mg Tab, 2 TAB PO TIDWM, TAB 05/28/24 Cinacalcet Hydrochloride (Sensipar) 30 Mg Tab, 2 TAB PO DAILY, TAB 05/15/23 Review of Systems As above, the other system are negative Vital Signs Vital Signs Date Time Temp Pulse Resp B/P (MAP) Pulse Ox O2 Delivery O2 Flow Rate FiO2 05/31/24 10:27 64 146/35 05/31/24 08:37 97.4 20 97 97.4 05/30/24 19:39 Room Air* 0 21 Physical Exam GENERAL EXAM: General: the patient is well developed and nourished. No acute distress. HEENT: Normocephalic, neck is supple, no carotid bruits. No mass RESPIRATORY: Normal respiratory effort with symmetrical lung expansion. Lungs clear to auscultation. CARDIOVASCULAR: Regular rate and rhythm with no murmurs. S1, S2. ABDOMEN: Soft, nontender, normal bowel sound NEUROLOGICAL: MENTAL STATUS: Awake and alert. Oriented to person, place, time and general circumstances. Poor historian SPEECH, LANGUAGE, HIGHER CORTICAL FUNCTION: no aphasia or dysathria. CRANIAL NERVES: #2: Intact visual valentin to confrontation. The right optic disc was sharp. #3,4,6: Pupils are equal, round and reactive. EOMs full and conjugate. #5: Facial sensation intact in all three divisions bilaterally. Mandibular s trength intact. #7: Facial muscles symmetrical and strength intact. #8: Hearing grossly normal to voice. #9,10: Uvula and soft palate rise in the midline. Swallow and voice are normal. #11: Trapezius and sternomastoid strength intact bilaterally. #12: Tongue midline. No fasciculations or atrophy. SENSATION: Sensation to touch and pinprick is normal. MOTOR: Normal tone in the upper and lower extremity. Normal muscle bulk. No fasciculations. No abnormal movements or posturing. Muscle strength of the major groups in the extremities is 4/5 with no major [id number] difference REFLEXES: Deep tendon reflexes are symmetrical. No pathological reflexes. CEREBELLAR/COORDINATION: Deferred GAIT/STATION: deferred Labs/Diagnostic Data Labs Test 05/29/24 18:14 05/28/24 05:13 05/27/24 20:07 05/27/24 17:15 Range/Units Sodium Level 137 136-145 mmol/L Potassium Level 4.9 3.5-5.1 mmol/L Chloride Level 99 98-107 mmol/L Carbon Dioxide Level 24 20-31 mmol/L Anion Gap 14 5-15 Blood Urea Nitrogen 28 H 9-23 mg/dL Creatinine 7.42 H 0.700-1.30 mg/dL Glomerular Filtration Rate Calc 8 >90 mL/min BUN/Creatinine Ratio 3.8 L 10.0-20.0 Serum Glucose 86 74-106 mg/dL Calcium Level 11.1 H 8.7-10.4 mg/dL Troponin I High Sensitivity 334 *H </=54 ng/L White Blood Count 9.1 4.4-10.8 10^3/uL Red Blood Count 5.80 4.5-5.90 10^6/uL Hemoglobin 18.8 H 13.5-17.5 g/dL Hematocrit 57.1 H 41.0-53.0 % Mean Corpuscular Volume 98.4 80.0-100.0 fL Mean Corpuscular Hemoglobin 32.4 H 28.0-32.0 pg Mean Corpuscular Hemoglobin Concent 32.9 32.0-36.0 g/dL Red Cell Distribution Width 18.3 H 11.8-14.3 % Platelet Count 73 L 140-450 10^3/uL Mean Platelet Volume 10.3 6.9-10.8 fL Neutrophils (%) (Auto) 85.0 H 37.0-80.0 % Lymphocytes (%) (Auto) 8.2 L 10.0-50.0 % Monocytes (%) (Auto) 6.4 0.0-12.0 % Eosinophils (%) (Auto) 0.1 0.0-7.0 % Basophils (%) (Auto) 0.3 0.0-2.0 % Neutrophils # (Auto) 7.7 1.6-8.6 10 ^3/uL Lymphocytes # (Auto) 0.7 0.4-5.4 10 ^3/uL Monocytes # (Auto) 0.6 0-1.3 10 ^3/uL Eosinophils # (Auto) 0 0-0.8 10 ^3/uL Basophils # (Auto) 0 0-0.2 10 ^3/uL Nucleated Red Blood Cells 0.3 % Prothrombin Time 12.5 H 9.3-11.8 sec Prothrombin Time INR 1.19 H 0.9-1.15 Activated Partial Thromboplast Time 33.5 24.5-34.5 SEC Magnesium Level 2.4 1.6-2.6 mg/dL Total Bilirubin 1.5 H 0.2-1.0 mg/dL Aspartate Amino Transferase (AST) 29 13-40 U/L Alanine Aminotransferase (ALT) 29 7-40 U/L Alkaline Phosphatase 320 H 46-116 U/L B-Type Natriuretic Peptide 22.20 0-100 pg/mL Total Protein 8.5 H 5.7-8.2 g/dL Albumin 4.7 3.2-4.8 g/dL Assessment Acute right-sided weakness, paresthesia, rule out acute stroke Chronic left-sided weakness, secondary to stroke in 2019, SAH in 2001 Brain aneurysm, chronic subarachnoid hemorrhage in 2001 End-stage renal failure Plan/Recommendation Monitoring Support treatment Lipitor profile MRI, Carotid Doppler Echocardiogram Lipitor 20 mg daily for now Plavix 75 mg daily GI prophylaxis Nephrology on case/hemodialysis More recommendation per clinical course Prognosis: Poor This medical document was created using an electronic medical record system with [employer] dictation system. Although this document has been carefully reviewed, there may still be some phonetic and typographical errors. These areas are purely typographical due to imperfections of the software programs, and do not reflect any compromise in the patient's medical care. Plan discussed with: Daughter, Other MICHAELA KAYE MD May 31, 2024 10:58
[2024-05-31] MEDS ORDERED: LORazepam 2MG/ML-1ML VIAL IV PRN (12:00)
--- NOTE | 2024-05-31 12:54 | DVH ---
Carotid Duplex Clinical History: cva Comparison: US CAROTID DUPLX W COLOR DOP on DOS: 08/02/23 Technique: Duplex Doppler evaluation of the extracranial carotid and vertebral arteries including color Doppler and spectral/pulsed waveform analysis was performed. Findings: RIGHT SIDE: The peak systolic velocities are 51 cm/s in the CCA, 55 cm/s in the ICA. The ICA/CCA ratio is 1.1. The external carotid artery is patent with peak systolic velocity of 62 cm/s proximally. There is appropriate antegrade flow in the right vertebral artery. LEFT SIDE: The peak systolic velocities are 69 cm/s in the CCA, 40 cm/s in the ICA. The ICA/CCA ratio is 0.6. The external carotid artery is patent with peak systolic velocity of 60 cm/s proximally. There is appropriate antegrade flow in the left vertebral artery. IMPRESSION: No hemodynamically significant stenosis noted in the right carotid system. No hemodynamically significant stenosis noted in the left carotid system. Reference: Radiology 2003; 229:340-346 Normal ICA PSV is <125 cm/sec and no plaque or intimal thickening is visible sonographically additional criteria include ICA/CCA PSV ratio <2.0 and ICA EDV <40 cm/sec <50% ICA stenosis ICA PSV is <125 cm/sec and plaque or intimal thickening is visible sonographically additional criteria include ICA/CCA PSV ratio <2.0 and ICA EDV <40 cm/sec 50-69% ICA stenosis ICA PSV is 125-230 cm/sec and plaque is visible sonographically additional criteria include ICA/CCA PSV ratio of 2.0-4.0 and ICA EDV of 40-100 cm/sec 70% ICA stenosis but less than near occlusion ICA PSV is >230 cm/sec and visible plaque and luminal narrowing are seen at miranda-scale and color Dopp ler ultrasound (the higher the Doppler parameters lie above the threshold of 230 cm/sec, the greater the likelihood of severe disease) additional criteria include ICA/CCA PSV ratio >4 and ICA EDV >100 cm/sec
[2024-05-31 14:24] LABS: Triglycerides 78 mg/dL (< 150)
[2024-05-31 14:25] LABS: LDL Cholesterol 27 mg/dL (< 100)
[2024-05-31 14:26] LABS: Cholesterol 84 mg/dL (< 200); HDL Cholesterol 40 mg/dL (40-59)
--- NOTE | 2024-05-31 15:01 | DVH ---
CLINICAL INDICATION: 59 years old, Male; CVA. COMPARISON: MRI BRAIN HEAD WO CONTRAST on DOS: 05/28/24, MRI BRAIN HEAD WO CONTRAST on DOS: 08/03/23, CT HEAD WITHOUT CONTRAST on DOS: 08/01/23 TECHNIQUE: Multisequence multiplanar MRI images of the brain were obtained without contrast. FINDINGS: Motion artifact limits evaluation on some sequences. There are areas of cortical restricte d diffusion in the superior left frontal lobe, likely sequela of acute to subacute ischemia. There ar e also a few small foci of restricted diffusion in the right frontal lobe superiorly due to acute or subacute ischemia. Encephalomalacia in the right frontal and parietal lobes from prior infarct. Dila tion of the ventricles appears similar compared to the prior exams. Basal cisterns are patent. Cere bellum, brainstem, and midline structures are within normal limits. Mucosal thickening and fluid in t he left frontal sinus and ethmoid air cells. Similar appearance of the orbits IMPRESSION: 1. Areas of acute or subacute ischemia in both frontal lobes, left greater than right as described ab ove. 2. Additional nonacute findings as described above.
--- NOTE | 2024-05-31 15:10 | DVHPN2 ---
Progress Note - Dictate Date Seen: May 31, 2024 Medical Necessity Reason Pt with a Central, PICC or Fol: No vital signs Vital Sign Date Time Temp Pulse Resp B/P (MAP) Pulse Ox O2 Delivery O2 Flow Rate FiO2 05/31/24 13:00 97.2 65 19 156/60 (92) 98 97.2 05/30/24 19:39 Room Air* 0 21 Total Intake and Output 05/30/24 05/30/24 05/31/24 15:00 23:00 07:00 Intake Total 473 ml 825 ml Output Total 0 ml Balance 473 ml 825 ml medications Current Medications Medications Dose Ordered Sig/Cameron Route Start Time Stop Time Status Last Admin Dose Admin Aspirin 162 mg DAILY PO 05/28/24 10:00 05/30/24 10:00 162 MG Sevelamer HCl 800 mg TIDWM PO 05/28/24 08:00 05/31/24 07:33 800 MG Clopidogrel Bisulfate 75 mg DAILY PO 05/28/24 10:00 05/31/24 10:24 75 MG Atorvastatin Calcium 40 mg HS PO 05/27/24 22:00 05/30/24 21:19 40 MG Ondansetron HCl 4 mg Q4HP PRN IV 05/27/24 19:45 Acetaminophen 650 mg Q6HP PRN PO 05/27/24 19:45 Nitroglycerin 0.4 mg Q5MINP PRN SL 05/27/24 19:45 Morphine Sulfate 2 mg Q30M PRN IV 05/27/24 19:45 Hydralazine HCl 10 mg Q8HR PO 05/28/24 22:00 05/29/24 05:39 10 MG Isosorbide Mononitrate 30 mg DAILY PO 05/29/24 10:00 05/31/24 10:26 30 MG Metoprolol Succinate 25 mg DAILY PO 05/29/24 10:00 05/31/24 10:27 25 MG objective middle age male NAD frail AVF no edema laboratory and microbiology Laboratory Tests 05/28/24 05:13 05/27/24 17:15 Test 05/28/24 05:13 Range/Units Serum Glucose 86 74-106 mg/dL Assessment/Plan End-stage renal disease Right arm weakness HD saturday Avoid hypotension renal diet s/p MRI brain w/u as per primary team Plan discussed with: Patient LUDIVINA TABARES MD May 31, 2024 15:10
[2024-06-01] VITALS (7 sets, daily range): BP systolic 81–132; BP diastolic 39–98; PULSE 55–76; RESP 16–18; TEMP 97.1–98.4; O2SAT 93–98
[2024-06-01] MEDS: ACETAMINOPHEN 325 MG TAB PO PRN (08:06)
[2024-06-01 09:30] LABS: Hepatitis B Surface Antigen Negative (Negative)
--- NOTE | 2024-06-01 09:43 | DVHPN2 ---
Progress Note - Dictate Date Seen: Jun 01, 2024 Medical Necessity Reason Pt with a Central, PICC or Fol: No Subjective Mr. Gamez is a 59 years old right-handed gentleman with a history of dyslipidemia, coronary artery disease, heart attack, AAA, progressive kidney disease, brain aneurysm/SAH, stroke with residual left-sided weakness, hyperparathyroidism, GI bleeding, end-stage kidney failure on hemodialysis, he was brought to the hospital on 05/27/24 with a chief complaint of right-sided weakness. I saw him on 08/02/2023 for stroke (MRI: Negative) I have seen and examined the patient, discussed with his nurse, Dr. Beverly. He reports being fine, alert and oriented x3, no new complaints He could not extend the left elbow, according to his daughter, due to the stroke in 2019 Hepatitis panel, 05/28/2024: Hep C Ab: Positive WBC/HB/PLT/MCV, 05/27/2024, 9.1/80.8/73/98.4 PT/INR/PTT, 05/27/2024: 12.5/1.19/33.5 BUN/CR, 05/27/2024: 27/6.34 GFR, 05/27/2024: 10 TBI/AST/ALT/AP, 05/27/2024: 1.5/29/29/320 TG/CHO L/LDL/HDL, 08/01/2023: 119/<50/13/<5, 05/31/2024: 78/84/27/40 Extremity venous study, 08/02/2022: No right or left femoropopliteal venous thrombosis Echocardiogram, 05/28/2024: Conclusion Moderately dilated left ventricle. Moderately reduced left ventricular systolic function estimated ejection fraction of 40%. There is a grade 1 diastolic dysfunction. Normal right ventricular size and dimension. Normal right ventricular systolic function. The aortic valve is thickened and sclerotic. There is mild mitral valve regurgitation. Tricuspid valve is normal in structure and function. The pulmonary valve is grossly normal. No pericardial effusion. Carotid Doppler, 05/31/2024: No hemodynamically significant stenosis noted in the right carotid system. No hemodynamically significant stenosis noted in the left carotid system. CT head, 08/01/2023: No evidence of acute intracranial abnormality. Old right MCA infarct. Left paranasal sinus disease CT head, 05/27/2024, 1. Cystic encephalomalacia along the anteromedial right frontal lobe May relate to chronic infarct. There is ex vacuo dilatation of the right lateral ventricle. 2. There are confluence hypodense changes in the right supratentorial periventricular white matter which May relate to gliosis or chronic microvascular ischemic changes. 3. Likely small chronic infarct in the right basal ganglia MRI head, 08/03/2023: No acute infarct, intracranial hemorrhage, mass effect, or hydrocephalus (I see right frontal chronic stroke with associated ventricular dilatation) MRI head, 05/28/2024: Limited by significant motion. Question of mild ischemia in the left high parietal lobe. Old right frontal infarct. Moderate changes of chronic microvascular ischemic disease. Stable configuration of the lateral ventricles. Consider follow-up exam when patient is able to remain still MRI head, 05/31/2024: 1. Areas of acute or subacute ischemia in both frontal lobes, left greater than right as described above. 2. Additional nonacute findings as described above. MRA, head, 08/03/2023: Occluded left MCA segments 2-4 vital signs Vital Sign Date Time Temp Pulse Resp B/P (MAP) Pulse Ox O2 Delivery O2 Flow Rate FiO2 06/01/24 09:00 97.1 68 18 123/39 (67) 95 97.1 06/01/24 08:00 Nasal Cannula* 2 28 Total Intake and Output 05/31/24 05/31/24 06/01/24 15:00 23:00 07:00 Intake Total 600 ml 500 ml Balance 600 ml 500 ml medications Current Medications Medications Dose Ordered Sig/Cameron Route Start Time Stop Time Status Last Admin Dose Admin Aspirin 162 mg DAILY PO 05/28/24 10:00 05/30/24 10:00 162 MG Sevelamer HCl 800 mg TIDWM PO 05/28/24 08:00 06/01/24 07:49 800 MG Clopidogrel Bisulfate 75 mg DAILY PO 05/28/24 10:00 06/01/24 09:25 75 MG Atorvastatin Calcium 40 mg HS PO 05/27/24 22:00 05/31/24 22:22 40 MG Ondansetron HCl 4 mg Q4HP PRN IV 05/27/24 19:45 Acetaminophen 650 mg Q6HP PRN PO 05/27/24 19:45 06/01/24 08:06 650 MG Nitroglycerin 0.4 mg Q5MINP PRN SL 05/27/24 19:45 Morphine Sulfate 2 mg Q30M PRN IV 05/27/24 19:45 Hydralazine HCl 10 mg Q8HR PO 05/28/24 22:00 05/31/24 22:21 10 MG Isosorbide Mononitrate 30 mg DAILY PO 05/29/24 10:00 05/31/24 10:26 30 MG Metoprolol Succinate 25 mg DAILY PO 05/29/24 10:00 05/31/24 10:27 25 MG objective General: the patient is well developed and nourished. No acute distress. MENTAL STATUS: Awake and alert. Oriented to person, place, time and general circumstances. Poor historian SPEECH, LANGUAGE, HIGHER CORTICAL FUNCTION: no aphasia or dysathria. CRANIAL NERVES: Pupils are equal, round and reactive. EOMs full and conjugate. Facial sensation intact in all three divisions bilaterally. Mandibular strength intact. Facial muscles symmetrical and strength intact. SENSATION: Sensation to touch and pinprick is normal. MOTOR: Normal tone in the upper and lower extremity. Normal muscle bulk. No fasciculations. No abnormal movements or posturing. Muscle strength of the major groups in the extremities is 4/5 with the left-sided weak, especially the left shoulder REFLEXES: Deep tendon reflexes are symmetrical. No pathological reflexes. CEREBELLAR/COORDINATION: Deferred GAIT/STATION: deferred laboratory and microbiology Laboratory Tests 05/28/24 05:13 05/27/24 17:15 Test 05/28/24 05:13 Range/Units Serum Glucose 86 74-106 mg/dL Problem List Acute right-sided weakness, paresthesia, rule out acute stroke Chronic left-sided weakness, secondary to stroke in 2019, SAH in 2001 Brain aneurysm, chronic subarachnoid hemorrhage in 2001 End-stage renal failure Assessment/Plan Monitoring Support treatment BERTHA Plavix 75 mg daily GI prophylaxis Nephrology on case/hemodialysis He he has long-term cardiology monitoring for the evidence of AFib if the BERTHA come back negative More recommendation per clinical course This medical document was created using an electronic medical record system with [employer] dictation system. Although this document has been carefully reviewed, there may still be some phonetic and typographical errors. These areas are purely typographical due to imperfections of the software programs, and do not reflect any compromise in the patient's medical care. Prognosis poor Plan discussed with: Other MICHAELA KAYE MD Jun 01, 2024 09:43
[2024-06-01] MEDS: HEPARIN 1,000 UNITS/ml 1ML VIAL IV ONE ×3 (09:45→12:47)
[2024-06-01 09:49] LABS: Hepatitis A Ab IgM Negative; Hepatitis B Core IgM Negative (Negative)
[2024-06-01 09:51] LABS: Hepatitis C Antibody Reactive (Negative)
--- NOTE | 2024-06-01 10:23 | DVHPN2 ---
Reviewed: Care Plan, H&P, Labs, Medications, Previous Orders, Radiology Changes from previous H/P or p: No Changes Objective Vitals Vital Signs Date Time Temp Pulse Resp B/P (MAP) Pulse Ox O2 Delivery O2 Flow Rate FiO2 06/01/24 09:00 97.1 68 18 123/39 (67) 95 97.1 06/01/24 08:00 Nasal Cannula* 2 28 Intake/Output Intake and Output 06/01/24 07:00 Intake Total 1100 ml Balance 1100 ml Intake Oral 1100 ml # Bowel Movements 2 Medications Current Medications Medications Dose Ordered Sig/Cameron Route Start Time Stop Time Status Last Admin Dose Admin Aspirin 162 mg DAILY PO 05/28/24 10:00 05/30/24 10:00 162 MG Sevelamer HCl 800 mg TIDWM PO 05/28/24 08:00 06/01/24 07:49 800 MG Clopidogrel Bisulfate 75 mg DAILY PO 05/28/24 10:00 06/01/24 09:25 75 MG Ondansetron HCl 4 mg Q4HP PRN IV 05/27/24 19:45 Acetaminophen 650 mg Q6HP PRN PO 05/27/24 19:45 06/01/24 08:06 650 MG Nitroglycerin 0.4 mg Q5MINP PRN SL 05/27/24 19:45 Morphine Sulfate 2 mg Q30M PRN IV 05/27/24 19:45 Hydralazine HCl 10 mg Q8HR PO 05/28/24 22:00 05/31/24 22:21 10 MG Isosorbide Mononitrate 30 mg DAILY PO 05/29/24 10:00 05/31/24 10:26 30 MG Metoprolol Succinate 25 mg DAILY PO 05/29/24 10:00 05/31/24 10:27 25 MG Laboratory Results Laboratory Tests 05/27/24 17:15 05/28/24 05:13 Lipid panel Test 05/31/24 13:36 Cholesterol Level 84 mg/dL (< 200) HDL Cholesterol 40 mg/dL (40-59) Triglycerides Level 78 mg/dL (< 150) Labs and/or images reviewed: Labs reviewed by me, Image(s) reviewed by me Assessment/Plan Assessment/Plan Acute toxic/metabolic encephalopathy, R/O stroke versus TIA, CT head shows old infarcts, no new changes, MRI brain shows no new changes, Neurology consult for Dr. Varner appreciated ESRD on Hemodialysis on (sat/sat/sat), consult for iron carrier Polycystic kidney disease Acute right-sided weakness ruled out TIA/ CVA History of brain aneurysm Non ST-elevation [place] with a troponin of 383 probably type 2, cardiology consult appreciated no further cardiac work up Acute on chronic systolic congestive heart failure ejection fraction 40 % Dyslipidemia Hypotension Mild malnutrition Hypercholesterolemia Carotid ultrasound negative for any occlusion MRI brain shows possible acute or subacute left frontal infarct History of CVA with left-sided weakness four years ago History of COVID pneumonia transferred from [facility] to [facility] September 2023, then went to rehab center for a month in [place] Chest x-ray negative Time spent 55 minutes Patient is full code Advanced care planning time 20 minutes Daughter Victorina at bedside BERTHA ordered by neurologist Plan discussed with: Patient Date of Service: Jun 01, 2024 Billing Provider: JENAE MANCERA MD Common Visit Codes: [id number] INP/OBS CARE(HIGH) JENAE MANCERA MD Jun 01, 2024 10:23
[2024-06-01] MEDS ORDERED: HEPARIN SODIUM (PORCINE) 5000 UNITS/ML 1ML VIAL IV ONE (11:30)
--- NOTE | 2024-06-01 12:54 | DVHPN2 ---
Progress Note Date Seen: Jun 01, 2024 Medical Necessity Reason Pt with a Central, PICC or Fol: No Subjective Patient reports: No new complaints Other Systems: Patient seen and examined by myself on follow-up today Patient examined hemodialysis, blood pressure stable Objective vital signs Vital Sign Date Time Temp Pulse Resp B/P (MAP) Pulse Ox O2 Delivery O2 Flow Rate FiO2 06/01/24 10:00 68 123/39 06/01/24 09:00 97.1 18 95 97.1 06/01/24 08:00 Nasal Cannula* 2 28 Total Intake and Output 05/31/24 05/31/24 06/01/24 15:00 23:00 07:00 Intake Total 600 ml 500 ml Balance 600 ml 500 ml medications Current Medications Medications Dose Ordered Sig/Cameron Route Start Time Stop Time Status Last Admin Dose Admin Aspirin 162 mg DAILY PO 05/28/24 10:00 05/30/24 10:00 162 MG Sevelamer HCl 800 mg TIDWM PO 05/28/24 08:00 06/01/24 07:49 800 MG Clopidogrel Bisulfate 75 mg DAILY PO 05/28/24 10:00 06/01/24 09:25 75 MG Ondansetron HCl 4 mg Q4HP PRN IV 05/27/24 19:45 Acetaminophen 650 mg Q6HP PRN PO 05/27/24 19:45 06/01/24 08:06 650 MG Nitroglycerin 0.4 mg Q5MINP PRN SL 05/27/24 19:45 Morphine Sulfate 2 mg Q30M PRN IV 05/27/24 19:45 Hydralazine HCl 10 mg Q8HR PO 05/28/24 22:00 05/31/24 22:21 10 MG Isosorbide Mononitrate 30 mg DAILY PO 05/29/24 10:00 05/31/24 10:26 30 MG Metoprolol Succinate 25 mg DAILY PO 05/29/24 10:00 05/31/24 10:27 25 MG Examination: LUNGS:Normal, CVS:Normal, MSK:Normal laboratory and microbiology Laboratory Tests 05/28/24 05:13 05/27/24 17:15 Test 05/28/24 05:13 Range/Units Serum Glucose 86 74-106 mg/dL Problem List/Assessment/Plan Problem List/Assessment/Plan End-stage renal disease Right arm weakness CVA NSTEMI Polycythemia Thrombocytopenia Recommendations Continue with UF 2 L as tolerated Renal diet Avoid hypotension renal diet Hematology consult We will continue to follow up Plan discussed with: Patient My Orders My Orders Orders - RICARDO ENCINAS MD Procedure Category Date Status Time Hemodialysis [facility] 06/01/24 In Process Treatment Order 09:36 RICARDO ENCINAS MD Jun 01, 2024 12:54
[2024-06-01] MEDS ORDERED: hydrALAZINE HCL 20 MG/ML VL IV PRN (15:45)
--- NOTE | 2024-06-01 15:53 | DVHPN2 ---
Consult Progress Note Date Seen: Jun 01, 2024 Subjective Review of Systems: CVS:Normal, RESPIRATORY:Normal, NEURO:Abnormal Objective vital signs Vital Sign Date Time Temp Pulse Resp B/P (MAP) Pulse Ox O2 Delivery O2 Flow Rate FiO2 06/01/24 13:00 98.4 68 17 132/80 (97) 96 98.4 06/01/24 08:00 Nasal Cannula* 2 28 Total Intake and Output 05/31/24 05/31/24 06/01/24 15:00 23:00 07:00 Intake Total 600 ml 500 ml Balance 600 ml 500 ml medications Current Medications Medications Dose Ordered Sig/Cameron Route Start Time Stop Time Status Last Admin Dose Admin Aspirin 162 mg DAILY PO 05/28/24 10:00 05/30/24 10:00 162 MG Sevelamer HCl 800 mg TIDWM PO 05/28/24 08:00 06/01/24 07:49 800 MG Clopidogrel Bisulfate 75 mg DAILY PO 05/28/24 10:00 06/01/24 09:25 75 MG Ondansetron HCl 4 mg Q4HP PRN IV 05/27/24 19:45 Acetaminophen 650 mg Q6HP PRN PO 05/27/24 19:45 06/01/24 08:06 650 MG Nitroglycerin 0.4 mg Q5MINP PRN SL 05/27/24 19:45 Morphine Sulfate 2 mg Q30M PRN IV 05/27/24 19:45 Hydralazine HCl 10 mg Q8HR PO 05/28/24 22:00 05/31/24 22:21 10 MG Isosorbide Mononitrate 30 mg DAILY PO 05/29/24 10:00 05/31/24 10:26 30 MG Metoprolol Succinate 25 mg DAILY PO 05/29/24 10:00 05/31/24 10:27 25 MG Examination: LUNGS:Normal, CVS:Normal, NEURO:Abnormal (Left-sided weakness/facial droop) laboratory and microbiology Laboratory Tests 05/28/24 05:13 05/27/24 17:15 Test 05/28/24 05:13 Range/Units Serum Glucose 86 74-106 mg/dL Problem List/Assessment/Plan Problem List/Assessment/Plan Acute embolic cerebrovascular accident rule out cardiogenic etiology NSTEMI, likely type II secondary to above Acute on chronic HFrEF, NYHA class II, newly diagnosed Cerebrovascular accident X3 with left-sided hemiparesis (on Plavix and ASA) Hx brain aneurysm, chronic subarachnoid hemorrhage in 2002 End-stage renal disease on hemodialysis Hypertension Hyperlipidemia Thyroid disease History of tobacco use Plan/Recommendation (Dr. Boyer) * Transthoracic echocardiogram reveals EF 40% * Guideline directed medical therapy for CHF as tolerated * Avoid spironolactone and SGLT2i given ESRD * Strict I&Os, daily weights, maintain fluid restriction * Aggressive blood pressure control * Dual-antiplatelet therapy as per Neurology * Scheduled for a BERTHA at first available * Cardiac surveillance: Notify of any ECG changes including arrhythmias * Consider outpatient event monitor in the setting of a negative BERTHA Given that the patient has newly diagnosed HFrEF, the patient may benefit from ischemic workup in the outpatient setting. Thank you for allowing us to care for this patient. Please call with any questions or concerns. This medical document was created using an electronic medical record system with voice recognition software and computerized dictation system. Although this document has been carefully reviewed, there might still be some phonetic and typographical errors. Occasional wrong-word or ``sound-alike substitutions may have occurred due to the inherent limitations of voice recognition software. These areas are purely typographical due to imperfections of the software programs and do not reflect any compromise in the patient's medical care. Please read the chart carefully and recognize, using context, where these substitutions have occurred. Plan discussed with: Patient, Other Date of Service: Jun 01, 2024 Billing Provider: HEATHER BOYER MD Cardiology Common Codes: [id number] [facility] Jun 01, 2024 15:53
[2024-06-01] MEDS: SACUBITRIL-VALSARTAN 24mg/26mg TAB PO SCH (21:19)
[2024-06-02] VITALS (20 sets, daily range): BP systolic 85–142; BP diastolic 37–93; PULSE 64–91; RESP 12–20; TEMP 97.4–98.4; O2SAT 90–98
--- NOTE | 2024-06-02 08:22 | DVHPN2 ---
Progress Note - Dictate Date Seen: Jun 02, 2024 Medical Necessity Reason Pt with a Central, PICC or Fol: No Subjective Mr. Gamez is a 59 years old right-handed gentleman with a history of dyslipidemia, coronary artery disease, heart attack, AAA, progressive kidney disease, brain aneurysm/SAH, stroke with residual left-sided weakness, hyperparathyroidism, GI bleeding, end-stage kidney failure on hemodialysis, he was brought to the hospital on 05/27/24 with a chief complaint of right-sided weakness. I saw him on 08/02/2023 for stroke (MRI: Negative) I have seen and examined the patient, discussed with his nurse. He reports being fine, alert and oriented x3, no new complaints Hepatitis panel, 05/28/2024: Hep C Ab: Positive WBC/HB/PLT/MCV, 05/27/2024, 9.1/80.8/73/98.4 PT/INR/PTT, 05/27/2024: 12.5/1.19/33.5 BUN/CR, 05/27/2024: 27/6.34 GFR, 05/27/2024: 10 TBI/AST/ALT/AP, 05/27/2024: 1.5/29/29/320 TG/CHO L/LDL/HDL, 08/01/2023: 119/<50/13/<5, 05/31/2024: 78/84/27/40 Extremity venous study, 08/02/2022: No right or left femoropopliteal venous thrombosis BERTHA, 06/02/2024: 1. Large intra-atrial septal aneurysm, with a positive intra- atrial bubble study indicating the presence of pedal valve. 2. There is a grade 2 atheromatous seen in the aorta, which likely indicates also high-risk atherosclerotic arterial embolic disease. 3. There is mild sclerosis and thickening of the aortic valve without evidence of stenosis but mild regurgitation. 4. Patient we will need assessment for other possible causes such as arrhythmia in addition to the presence of PFO given history of recurrent stroke Echocardiogram, 05/28/2024: Moderately dilated left ventricle. Moderately reduced left ventricular systolic function estimated ejection fraction of 40%. There is a grade 1 diastolic dysfunction. Normal right ventricular size and dimension. Normal right ventricular systolic function. The aortic valve is thickened and sclerotic. There is mild mitral valve regurgitation. Tricuspid valve is normal in structure and function. The pulmonary valve is grossly normal. No pericardial effusion. Carotid Doppler, 05/31/2024: No hemodynamically significant stenosis noted in the right carotid system. No hemodynamically significant stenosis noted in the left carotid system. CT head, 08/01/2023: No evidence of acute intracranial abnormality. Old right MCA infarct. Left paranasal sinus disease CT head, 05/27/2024, 1. Cystic encephalomalacia along the anteromedial right frontal lobe May relate to chronic infarct. There is ex vacuo dilatation of the right lateral ventricle. 2. There are confluence hypodense changes in the right supratentorial periventricular white matter which May relate to gliosis or chronic microvascular ischemic changes. 3. Likely small chronic infarct in the right basal ganglia MRI head, 08/03/2023: No acute infarct, intracranial hemorrhage, mass effect, or hydrocephalus (I see right frontal chronic stroke with associated ventricular dilatation) MRI head, 05/28/2024: Limited by significant motion. Question of mild ischemia in the left high parietal lobe. Old right frontal infarct. Moderate changes of chronic microvascular ischemic disease. Stable configuration of the lateral ventricles. Consider follow-up exam when patient is able to remain still MRI head, 05/31/2024: 1. Areas of acute or subacute ischemia in both frontal lobes, left greater than right as described above. 2. Additional nonacute findings as described above. MRA, head, 08/03/2023: Occluded left MCA segments 2-4 vital signs Vital Sign Date Time Temp Pulse Resp B/P (MAP) Pulse Ox O2 Delivery O2 Flow Rate FiO2 06/02/24 04:50 97.9 64 15 104/55 (71) 98 97.9 06/01/24 20:00 Nasal Cannula* 2 28 Total Intake and Output 06/01/24 06/01/24 06/02/24 15:00 23:00 07:00 Intake Total 0 ml 600 ml Output Total 0 ml 200 ml Balance 0 ml 400 ml medications Current Medications Medications Dose Ordered Sig/Cameron Route Start Time Stop Time Status Last Admin Dose Admin Sevelamer HCl 800 mg TIDWM PO 05/28/24 08:00 06/01/24 17:16 800 MG Clopidogrel Bisulfate 75 mg DAILY PO 05/28/24 10:00 06/01/24 09:25 75 MG Ondansetron HCl 4 mg Q4HP PRN IV 05/27/24 19:45 Acetaminophen 650 mg Q6HP PRN PO 05/27/24 19:45 06/01/24 08:06 650 MG Nitroglycerin 0.4 mg Q5MINP PRN SL 05/27/24 19:45 Morphine Sulfate 2 mg Q30M PRN IV 05/27/24 19:45 Metoprolol Succinate 25 mg DAILY PO 05/29/24 10:00 05/31/24 10:27 25 MG Aspirin 81 mg DAILY PO 06/02/24 10:00 Sacubitril/ Valsartan 1 tab BID PO 06/01/24 22:00 06/01/24 21:19 1 TAB Hydralazine HCl 10 mg Q6HP PRN IV 06/01/24 15:45 objective General: the patient is well developed and nourished. No acute distress. MENTAL STATUS: Awake and alert. Oriented to person, place, time and general circumstances. Poor historian SPEECH, LANGUAGE, HIGHER CORTICAL FUNCTION: no aphasia or dysathria. CRANIAL NERVES: Pupils are equal, round and reactive. EOMs full and conjugate. Facial sensation intact in all three divisions bilaterally. Mandibular strength intact. Facial muscles symmetrical and strength intact. SENSATION: Sensation to touch and pinprick is normal. MOTOR: Normal tone in the upper and lower extremity. Normal muscle bulk. No fasciculations. No abnormal movements or posturing. Muscle strength of the major groups in the extremities is 4/5 with the left-sided weaker REFLEXES: Deep tendon reflexes are symmetrical. No pathological reflexes. CEREBELLAR/COORDINATION: Deferred GAIT/STATION: deferred laboratory and microbiology Laboratory Tests 05/28/24 05:13 05/27/24 17:15 Test 05/28/24 05:13 Range/Units Serum Glucose 86 74-106 mg/dL Problem List Acute right-sided weakness, paresthesia, secondary to acute stroke Acute bilateral frontal lobe strokes on 05/27/24 Chronic left-sided weakness, secondary to stroke in 2019, SAH in 2001 Brain aneurysm, chronic subarachnoid hemorrhage in 2001 End-stage renal failure Assessment/Plan Monitoring Support treatment Plavix 75 mg daily GI prophylaxis Nephrology on case/hemodialysis He he has long-term cardiology monitoring for the evidence of AFib More recommendation per clinical course This medical document was created using an electronic medical record system with Dragon computerized dictation system. Although this document has been carefully reviewed, there may still be some phonetic and typographical errors. These areas are purely typographical due to imperfections of the software programs, and do not reflect any compromise in the patient's medical care. Prognosis poor Plan discussed with: Patient, Other MICHAELA KAYE MD Jun 02, 2024 08:22
[2024-06-02] MEDS: fentaNYL CITRATE 100 MCG/2 ML VL IV ONE (08:30)
[2024-06-02] MEDS: LIDOCAINE VISCOUS 2% 15ML UD PO ONE (08:30)
[2024-06-02] MEDS: MIDAZOLAM HCL 2MG/2ML 2ml VIAL (1mg/ml) IV ONE (08:30)
--- NOTE | 2024-06-02 09:32 | DVHPN2 ---
Reviewed: Care Plan, H&P, Labs, Medications, Previous Orders, Radiology Changes from previous H/P or p: No Changes Objective Vitals Vital Signs Date Time Temp Pulse Resp B/P (MAP) Pulse Ox O2 Delivery O2 Flow Rate FiO2 06/02/24 08:28 98 Room Air* 0 21 06/02/24 04:50 97.9 64 15 104/55 (71) 97.9 Intake/Output Intake and Output 06/02/24 07:00 Intake Total 600 ml Output Total 200 ml Balance 400 ml Intake Oral 600 ml Output Urine Total 200 ml Medications Current Medications Medications Dose Ordered Sig/Cameron Route Start Time Stop Time Status Last Admin Dose Admin Sevelamer HCl 800 mg TIDWM PO 05/28/24 08:00 06/01/24 17:16 800 MG Clopidogrel Bisulfate 75 mg DAILY PO 05/28/24 10:00 06/01/24 09:25 75 MG Ondansetron HCl 4 mg Q4HP PRN IV 05/27/24 19:45 Acetaminophen 650 mg Q6HP PRN PO 05/27/24 19:45 06/01/24 08:06 650 MG Nitroglycerin 0.4 mg Q5MINP PRN SL 05/27/24 19:45 Morphine Sulfate 2 mg Q30M PRN IV 05/27/24 19:45 Metoprolol Succinate 25 mg DAILY PO 05/29/24 10:00 05/31/24 10:27 25 MG Aspirin 81 mg DAILY PO 06/02/24 10:00 Sacubitril/ Valsartan 1 tab BID PO 06/01/24 22:00 06/01/24 21:19 1 TAB Hydralazine HCl 10 mg Q6HP PRN IV 06/01/24 15:45 Laboratory Results Laboratory Tests 05/27/24 17:15 05/28/24 05:13 Labs and/or images reviewed: Labs reviewed by me, Image(s) reviewed by me Assessment/Plan Assessment/Plan Acute toxic/metabolic encephalopathy, R/O stroke versus TIA, CT head shows old infarcts, no new changes, MRI brain shows no new changes, Neurology consult for Dr. Varner appreciated ESRD on Hemodialysis on (mon/sat/sat), consult for supervisor refractory products Polycystic kidney disease Acute right-sided weakness ruled out TIA/ CVA History of brain aneurysm Non ST-elevation NE with a troponin of 383 probably type 2, cardiology consult appreciated no further cardiac work up Acute on chronic systolic congestive heart failure ejection fraction 40 % Dyslipidemia Hypotension Mild malnutrition Brain aneurysm, chronic subdural hemorrhage in 2001 Hypercholesterolemia Carotid ultrasound negative for any occlusion MRI brain shows possible acute or subacute left frontal infarct History of CVA with left-sided weakness four years ago History of COVID pneumonia transferred from [facility] to [facility] September 2023, then went to rehab center for a month in [place] Chest x-ray negative Time spent 55 minutes Patient is full code Advanced care planning time 20 minutes Daughter Victorina at bedside BERTHA ordered by neurologist which is pending Time spent 45 mts Plan discussed with: Patient My Orders Orders - JENAE MANCERA MD Procedure Category Date Status Time * Cardiology Consult CONS 06/01/24 Transmitted 12:52 * Cardiology Consult CONS 06/01/24 Transmitted 14:53 Date of Service: Jun 02, 2024 Billing Provider: [facility] Common Visit Codes: [id number] INP/OBS CARE(HIGH) JENAE MANCERA MD Jun 02, 2024 09:32
[2024-06-02] MEDS: ASPirin 81 mg TAB PO SCH (11:04)
--- NOTE | 2024-06-02 11:04 | DVHPN2 ---
Progress Note Date Seen: Jun 02, 2024 Medical Necessity Reason Pt with a Central, PICC or Fol: No Subjective Other Systems: Patient seen and examined by myself today in follow-up Objective vital signs Vital Sign Date Time Temp Pulse Resp B/P (MAP) Pulse Ox O2 Delivery O2 Flow Rate FiO2 06/02/24 09:00 97.9 78 16 114/71 (85) 98 97.9 06/02/24 08:28 Room Air* 0 21 Total Intake and Output 06/01/24 06/01/24 06/02/24 15:00 23:00 07:00 Intake Total 0 ml 600 ml Output Total 0 ml 200 ml Balance 0 ml 400 ml medications Current Medications Medications Dose Ordered Sig/Cameron Route Start Time Stop Time Status Last Admin Dose Admin Sevelamer HCl 800 mg TIDWM PO 05/28/24 08:00 06/01/24 17:16 800 MG Clopidogrel Bisulfate 75 mg DAILY PO 05/28/24 10:00 06/01/24 09:25 75 MG Ondansetron HCl 4 mg Q4HP PRN IV 05/27/24 19:45 Acetaminophen 650 mg Q6HP PRN PO 05/27/24 19:45 06/01/24 08:06 650 MG Nitroglycerin 0.4 mg Q5MINP PRN SL 05/27/24 19:45 Morphine Sulfate 2 mg Q30M PRN IV 05/27/24 19:45 Metoprolol Succinate 25 mg DAILY PO 05/29/24 10:00 05/31/24 10:27 25 MG Aspirin 81 mg DAILY PO 06/02/24 10:00 Sacubitril/ Valsartan 1 tab BID PO 06/01/24 22:00 06/01/24 21:19 1 TAB Hydralazine HCl 10 mg Q6HP PRN IV 06/01/24 15:45 Examination: LUNGS:Normal, CVS:Normal, MSK:Normal laboratory and microbiology Laboratory Tests 05/28/24 05:13 05/27/24 17:15 Test 05/28/24 05:13 Range/Units Serum Glucose 86 74-106 mg/dL Problem List/Assessment/Plan Problem List/Assessment/Plan End-stage renal disease Right arm weakness CVA NSTEMI Polycythemia Thrombocytopenia Recommendations Hemodialysis tomorrow Renal diet Avoid hypotension renal diet Hematology consult We will continue to follow up Plan discussed with: Patient Dietary Evaluation Review Comments: 1) Continue current plan of care Expected Outcomes/Goals: F/U in 3-5 days RICARDO ENCINAS MD Jun 02, 2024 11:04
--- NOTE | 2024-06-02 11:13 | DVHPN2 ---
Consult Progress Note Date Seen: Jun 02, 2024 Subjective Review of Systems: CVS:Normal, RESPIRATORY:Normal, NEURO:Normal Objective vital signs Vital Sign Date Time Temp Pulse Resp B/P (MAP) Pulse Ox O2 Delivery O2 Flow Rate FiO2 06/02/24 09:00 97.9 78 16 114/71 (85) 98 97.9 06/02/24 08:28 Room Air* 0 21 Total Intake and Output 06/01/24 06/01/24 06/02/24 15:00 23:00 07:00 Intake Total 0 ml 600 ml Output Total 0 ml 200 ml Balance 0 ml 400 ml medications Current Medications Medications Dose Ordered Sig/Cameron Route Start Time Stop Time Status Last Admin Dose Admin Sevelamer HCl 800 mg TIDWM PO 05/28/24 08:00 06/01/24 17:16 800 MG Clopidogrel Bisulfate 75 mg DAILY PO 05/28/24 10:00 06/01/24 09:25 75 MG Ondansetron HCl 4 mg Q4HP PRN IV 05/27/24 19:45 Acetaminophen 650 mg Q6HP PRN PO 05/27/24 19:45 06/01/24 08:06 650 MG Nitroglycerin 0.4 mg Q5MINP PRN SL 05/27/24 19:45 Morphine Sulfate 2 mg Q30M PRN IV 05/27/24 19:45 Metoprolol Succinate 25 mg DAILY PO 05/29/24 10:00 05/31/24 10:27 25 MG Aspirin 81 mg DAILY PO 06/02/24 10:00 Sacubitril/ Valsartan 1 tab BID PO 06/01/24 22:00 06/01/24 21:19 1 TAB Hydralazine HCl 10 mg Q6HP PRN IV 06/01/24 15:45 Examination: LUNGS:Normal, CVS:Normal, NEURO:Abnormal (Left-sided facial droop) laboratory and microbiology Laboratory Tests 05/28/24 05:13 05/27/24 17:15 Test 05/28/24 05:13 Range/Units Serum Glucose 86 74-106 mg/dL Problem List/Assessment/Plan Problem List/Assessment/Plan Acute embolic CVA with large intra-atrial septal aneurysm and associated PFO Rule out cardiac arrhythmias NSTEMI, likely type II secondary to above Acute on chronic HFrEF, NYHA class II, newly diagnosed Cerebrovascular accident X3 with left-sided hemiparesis (on Plavix and ASA) Hx brain aneurysm, chronic subarachnoid hemorrhage in 2002 End-stage renal disease on hemodialysis Hypertension Hyperlipidemia Thyroid disease History of tobacco use Plan/Recommendation (Dr. Boyer) * Transesophageal echocardiogram revealed a large intra-atrial septal aneurysm with an associated PFO (see report) * RoPE Score 4 points, 38% chance that stroke is due to PFO and 12% risk of 2-year recurrence of stroke/TIA * Transthoracic echocardiogram reveals EF 40% * May benefit from ischemic workup in the outpatient setting * Guideline directed medical therapy for CHF as tolerated * Avoid spironolactone and SGLT2i given ESRD * Strict I&Os, daily weights, maintain fluid restriction * Dual-antiplatelet therapy as per Neurology/Cardiology recommendations * Cardiac surveillance: Notify of any ECG changes including arrhythmias * Outpatient event monitor for a minimum of two weeks Case discussed with Dr. Boyer. The patient with a positive BERTHA is recommended dual-antiplatelet therapy as well as an outpatient event monitor for a minimal of two weeks duration to rule out cardiac arrhythmias. In the setting of eventual arrhythmias, the patient should be fully anticoagulated with NOAC/DOAC therapy. Otherwise, he should be referred for repair of septal defect (PFO). We will sign off at this time. Kindly call with any questions or concerns. Thank you for allowing us to care for this patient. This medical document was created using an electronic medical record system with voice recognition software and computerized dictation system. Although this document has been carefully reviewed, there might still be some phonetic and typographical errors. Occasional wrong-word or ``sound-alike substitutions may have occurred due to the inherent limitations of voice recognition software. These areas are purely typographical due to imperfections of the software programs and do not reflect any compromise in the patient's medical care. Please read the chart carefully and recognize, using context, where these substitutions have occurred. Plan discussed with: Patient, Other Dietary Evaluation Review Comments: 1) Continue current plan of care Expected Outcomes/Goals: F/U in 3-5 days Date of Service: Jun 02, 2024 Billing Provider: HEATHER BOYER MD Cardiology Common Codes: [id number] HOSP CARE([facility] Jun 02, 2024 11:13
--- NOTE | 2024-06-02 11:18 | DVHOP2 ---
Operative Report - 2 Report Details Date: 06/02/24 Preop Diagnosis: Recurrent stroke. Postop Diagnosis: Transesophageal echocardiography was performed today, this revealed a large intra-atrial septal aneurysm, associated with a patent foramen ovale based on positive bubble study, patient also has atherosclerotic changes of the aorta, left ventricular hypertrophy. Surgeon: Ariela Maria MD Anesthesiologist: Conscious sedation using25 mcg of fentanyl as well as a mg IV midazolam. It was given direct supervision the primary it architect with a preserved attending nurses. Patient was monitored for total 45 minutes without obvious complication, Anesthesia: Local Consent: The patient was informed of the risks and benefits of the procedure. These include but are not limited to complications of anesthesia, postoperative infection, incomplete relief of symptoms, recurrence of symptoms, damage to blood vessels, nerves and tendons, deep venous thrombosis, pulmonary embolism and possible need for repeat surgery in the future. Indications for Surgery: This is a 59-year-old male patient who presents to the emergency room with chief complaint of right-sided weakness and periods of confusion for 1 hour prior to arrival. The patient's daughter at bedside reports that the patient began saying things that were not making sense, but then would be completely alert and oriented a few minutes later. The patient's daughter also mentions that the patient was having new onset right-sided weakness. EMS was called and the patient was brought to the emergency room for further evaluation. Upon emergency room arrival, a head CT was performed and revealed small chronic infarct in the right basal ganglia. A brain MRI was completed and reveals question of mild ischemia in the left high parietal lobe. Cardiology has now been consulted for elevated troponin level. The patient denies any cardiac symptoms including chest pain, shortness or breath, palpitations, or other cardiac symptoms. Initial twelve lead electrocardiogram reveals sinus tachycardia without any significant ST segment changes. Initial troponin level of 153ng/L with uptrend and peak level of 334ng/L. Significant past medical history includes hypertension, hyperlipidemia, polycystic kidney disease now with end-stage renal disease on hemodialysis, CVA x3 with left-sided deficit, previous brain aneurysm, left eye blindness, thyroid disease, and history of tobacco use. Name of Procedure Performed 1. Transesophageal echocardiography. 2. Conscious sedation using25 mcg of fentanyl as well as a mg of midazolam. 3. Bubble study to confirm with the presence of intra-atrial shunting. Procedure Details Procedure Details: Procedure note: After informed consent was obtained risks, benefits, complications, and alternatives were discussed in details with the patient who agrees to have the procedure done. At the beginning of the procedure, patient w as asked to gargle solution of 10 cc of xylocaine to obtain anesthesia to the posterior wall of the nasopharynx. Followed which % achieve conscious mcg of fentanyl as well as a mg IV midazolam. Thereafter he mouth guard was placed, and standard BERTHA probe was advanced to the mid esophageal area to obtain five chamber, four chamber, three chamber, and anteflexed and retr oflexed view. Bubble study was also conducted to rule out intra-atrial shunting. Findings were as follows: 1. Mild concentric left ventricular hypertrophy the overall preserved left ventricular systolic function at 50%. No evidence of left ventricular thrombus. 2. Normal right ventricular size and dimension. Normal right ventricular systolic function. 3. Borderline dilated right and left atria. 4. There is a large intra-atrial septal aneurysm, with bubble study there was a large shunt seen due to multiple small holes within the aneurysm likely representing patent foramen ovale, 5. Normal left atrial appendage structure, without evidence of thrombus. 6. Aortic valve is thickened and sclerotic it is a trileaflet opens well no significant stenosis but mild regurgitation. 7. Mitral valve appears normal in structure and function with mild mitral regurgitation. 8. There is mild tricuspid valve regurgitation. 9. The visualized part of the aorta shows grade atheroma in the ascending aorta. 10. Normal pulmonary vein connections and number. 11. No evidence of pericardial effusion. Impression and plan: 1. Large intra-atrial septal aneurysm, with a positive intra-atrial bubble study indicating the presence of pedal valve. 2. There is a grade 2 atheromatous seen in the aorta, which likely indicates also high-risk atherosclerotic arterial embolic disease. 3. There is mild sclerosis and thickening of the aortic valve without evidence of stenosis but mild regurgitation. 4. Patient we will need assessment for other possible causes such as arrhythmia in addition to the presence of PFO given history of recurrent stroke. Condition Good Disposition ARIELA MARIA MD Jun 02, 2024 11:18
[2024-06-03 00:54] VITALS: BP 107/68; PULSE 82; RESP 18; TEMP 98.3; O2SAT 96
[2024-06-03 05:00] VITALS: BP 112/13; PULSE 19; RESP 17; TEMP 98; O2SAT 93
[2024-06-03] MEDS ORDERED: SODIUM CHL 0.9% 1000 ML BAG XX ONE (07:00)
[2024-06-03 08:00] VITALS: PULSE 74; PULSE 88; RESP 18; O2SAT 96
[2024-06-03 08:16] VITALS: BP 133/83; PULSE 95; RESP 16; TEMP 97.9; O2SAT 96
--- NOTE | 2024-06-03 10:05 | DVHPN2 ---
Progress Note - Dictate Date Seen: Jun 03, 2024 Medical Necessity Reason Pt with a Central, PICC or Fol: No Subjective Mr. Gamez is a 59 years old right-handed gentleman with a history of dyslipidemia, coronary artery disease, heart attack, AAA, progressive kidney disease, brain aneurysm/SAH, stroke with residual left-sided weakness, hyperparathyroidism, GI bleeding, end-stage kidney failure on hemodialysis, he was brought to the hospital on 05/27/24 with a chief complaint of right-sided weakness. I saw him on 08/02/2023 for stroke (MRI: Negative) I have seen and examined the patient, discussed with his nurse in the [facility]. He reports doing fine, alert and oriented x3, no new complaints Hepatitis panel, 05/28/2024: Hep C Ab: Positive WBC/HB/PLT/MCV, 05/27/2024, 9.1/80.8/73/98.4 PT/INR/PTT, 05/27/2024: 12.5/1.19/33.5 BUN/CR, 05/27/2024: 27/6.34 GFR, 05/27/2024: 10 TBI/AST/ALT/AP, 05/27/2024: 1.5/29/29/320 TG/CHO L/LDL/HDL, 08/01/2023: 119/<50/13/<5, 05/31/2024: 78/84/27/40 Extremity venous study, 08/02/2022: No right or left femoropopliteal venous thrombosis BERTHA, 06/02/2024: 1. Large intra-atrial septal aneurysm, with a positive intra- atrial bubble study indicating the presence of pedal valve. 2. There is a grade 2 atheromatous seen in the aorta, which likely indicates also high-risk atherosclerotic arterial embolic disease. 3. There is mild sclerosis and thickening of the aortic valve without evidence of stenosis but mild regurgitation. 4. Patient we will need assessment for other possible causes such as arrhythmia in addition to the presence of PFO given history of recurrent stroke Echocardiogram, 05/28/2024: Moderately dilated left ventricle. Moderately reduced left ventricular systolic function estimated ejection fraction of 40%. There is a grade 1 diastolic dysfunction. Normal right ventricular size and dimension. Normal right ventricular systolic function. The aortic valve is thickened and sclerotic. There is mild mitral valve regurgitation. Tricuspid valve is normal in structure and function. The pulmonary valve is grossly normal. No pericardial effusion. Carotid Doppler, 05/31/2024: No hemodynamically significant stenosis noted in the right carotid system. No hemodynamically significant stenosis noted in the left carotid system. CT head, 08/01/2023: No evidence of acute intracranial abnormality. Old right MCA infarct. Left paranasal sinus disease CT head, 05/27/2024, 1. Cystic encephalomalacia along the anteromedial right frontal lobe May relate to chronic infarct. There is ex vacuo dilatation of the right lateral ventricle. 2. There are confluence hypodense changes in the right supratentorial periventricular white matter which May relate to gliosis or chronic microvascular ischemic changes. 3. Likely small chronic infarct in the right basal ganglia MRI head, 08/03/2023: No acute infarct, intracranial hemorrhage, mass effect, or hydrocephalus (I see right frontal chronic stroke with associated ventricular dilatation) MRI head, 05/28/2024: Limited by significant motion. Question of mild ischemia in the left high parietal lobe. Old right frontal infarct. Moderate changes of chronic microvascular ischemic disease. Stable configuration of the lateral ventricles. Consider follow-up exam when patient is able to remain still MRI head, 05/31/2024: 1. Areas of acute or subacute ischemia in both frontal lobes, left greater than right as described above. 2. Additional nonacute findings as described above. MRA, head, 08/03/2023: Occluded left MCA segments 2-4 vital signs Vital Sign Date Time Temp Pulse Resp B/P (MAP) Pulse Ox O2 Delivery O2 Flow Rate FiO2 06/03/24 08:16 97.9 95 16 133/83 (100) 96 97.9 06/03/24 08:00 Nasal Cannula* 2 28 Total Intake and Output 06/02/24 06/02/24 06/03/24 15:00 23:00 07:00 Intake Total 840 ml 480 ml Output Total 400 ml 0 ml Balance 440 ml 480 ml medications Current Medications Medications Dose Ordered Sig/Cameron Route Start Time Stop Time Status Last Admin Dose Admin Sevelamer HCl 800 mg TIDWM PO 05/28/24 08:00 06/02/24 17:40 800 MG Clopidogrel Bisulfate 75 mg DAILY PO 05/28/24 10:00 06/01/24 09:25 75 MG Ondansetron HCl 4 mg Q4HP PRN IV 05/27/24 19:45 Acetaminophen 650 mg Q6HP PRN PO 05/27/24 19:45 06/01/24 08:06 650 MG Nitroglycerin 0.4 mg Q5MINP PRN SL 05/27/24 19:45 Morphine Sulfate 2 mg Q30M PRN IV 05/27/24 19:45 Metoprolol Succinate 25 mg DAILY PO 05/29/24 10:00 05/31/24 10:27 25 MG Aspirin 81 mg DAILY PO 06/02/24 10:00 Sacubitril/ Valsartan 1 tab BID PO 06/01/24 22:00 06/02/24 21:08 1 TAB Hydralazine HCl 10 mg Q6HP PRN IV 06/01/24 15:45 objective General: the patient is well developed and nourished. No acute distress. MENTAL STATUS: Awake and alert. Oriented to person, place, time and general circumstances. Poor historian SPEECH, LANGUAGE, HIGHER CORTICAL FUNCTION: no aphasia or dysathria. CRANIAL NERVES: Pupils are equal, round and reactive. EOMs full and conjugate. Facial sensation intact in all three divisions bilaterally. Mandibular strength intact. Facial muscles symmetrical and strength intact. SENSATION: Sensation to touch and pinprick is normal. MOTOR: Normal tone in the upper and lower extremity. Normal muscle bulk. No fasciculations. No abnormal movements or posturing. Muscle strength of the major groups in the extremities is 4/5 with the left-sided weaker REFLEXES: Deep tendon reflexes are symmetrical. No pathological reflexes. CEREBELLAR/COORDINATION: Deferred GAIT/STATION: deferred laboratory and microbiology Laboratory Tests 05/28/24 05:13 05/27/24 17:15 Test 05/28/24 05:13 Range/Units Serum Glucose 86 74-106 mg/dL Problem List Acute right-sided weakness, paresthesia, secondary to acute stroke Acute bilateral frontal lobe strokes on 05/27/24 Chronic left-sided weakness, secondary to stroke in 2019, SAH in 2001 Brain aneurysm, chronic subarachnoid hemorrhage in 2001 End-stage renal failure He was Assessment/Plan Monitoring Support treatment Aspirin 81 mg daily Plavix 75 mg daily GI prophylaxis Nephrology on case/hemodialysis He he has long-term cardiology monitoring for the evidence of AFib More recommendation per clinical course This medical document was created using an electronic medical record system with [employer] dictation system. Although this document has been carefully reviewed, there may still be some phonetic and typographical errors. These areas are purely typographical due to imperfections of the software programs, and do not reflect any compromise in the patient's medical care. Prognosis poor Dietary Evaluation Review Comments: 1) Continue current plan of care Expected Outcomes/Goals: F/U in 3-5 days Plan discussed with: Patient, Other MICHAELA KAYE MD Jun 03, 2024 10:05
[2024-06-03] MEDS ORDERED: CLOP75TA28 PO (10:18)
[2024-06-03] MEDS ORDERED: SACU1TAB PO (10:18)
[2024-06-03] MEDS ORDERED: ASPI-628 PO (10:18)
--- NOTE | 2024-06-03 10:21 | DVHPN2 ---
Reviewed: Care Plan, H&P, Labs, Medications, Previous Orders, Radiology Changes from previous H/P or p: No Changes Objective Vitals Vital Signs Date Time Temp Pulse Resp B/P (MAP) Pulse Ox O2 Delivery O2 Flow Rate FiO2 06/03/24 08:16 97.9 95 16 133/83 (100) 96 97.9 06/03/24 08:00 Nasal Cannula* 2 28 Intake/Output Intake and Output 06/03/24 07:00 Intake Total 1320 ml Output Total 400 ml Balance 920 ml Intake Oral 1320 ml Output Urine Total 400 ml # Voids 2 Medications Current Medications Medications Dose Ordered Sig/Cameron Route Start Time Stop Time Status Last Admin Dose Admin Sevelamer HCl 800 mg TIDWM PO 05/28/24 08:00 06/02/24 17:40 800 MG Clopidogrel Bisulfate 75 mg DAILY PO 05/28/24 10:00 06/01/24 09:25 75 MG Ondansetron HCl 4 mg Q4HP PRN IV 05/27/24 19:45 Acetaminophen 650 mg Q6HP PRN PO 05/27/24 19:45 06/01/24 08:06 650 MG Nitroglycerin 0.4 mg Q5MINP PRN SL 05/27/24 19:45 Morphine Sulfate 2 mg Q30M PRN IV 05/27/24 19:45 Metoprolol Succinate 25 mg DAILY PO 05/29/24 10:00 05/31/24 10:27 25 MG Aspirin 81 mg DAILY PO 06/02/24 10:00 Sacubitril/ Valsartan 1 tab BID PO 06/01/24 22:00 06/02/24 21:08 1 TAB Hydralazine HCl 10 mg Q6HP PRN IV 06/01/24 15:45 Laboratory Results Laboratory Tests 05/27/24 17:15 05/28/24 05:13 Chemistry Test 06/02/24 13:28 Phosphorus Level 8.9 mg/dL (2.4-5.1) H Labs and/or images reviewed: Labs reviewed by me, Image(s) reviewed by me Assessment/Plan Assessment/Plan Acute embolic CVA with large intra-atrial septal aneurysm and associated PFO Rule out cardiac arrhythmias Intra-atrial septal aneurysm with associated PFO by BERTHA: Cardiology advised aspirin and Plavix and outpatient follow up in two weeks for event monitor NSTEMI, likely type II secondary to above Acute on chronic HFrEF, NYHA class II, newly diagnosed Cerebrovascular accident X3 with left-sided hemiparesis (on Plavix and ASA) Hx brain aneurysm, chronic subarachnoid hemorrhage in 2001 End-stage renal disease on hemodialysis Hypertension Hyperlipidemia Thyroid disease History of tobacco use Time spent 45 mts Cardiology Cleared for discharge and the patient wants to go home Plan discussed with: Patient Date of Service: Jun 03, 2024 Billing Provider: JENAE MANCERA MD Common Visit Codes: [id number] INP/OBS CARE(HIGH) JENAE MANCERA MD Jun 03, 2024 10:21
--- NOTE | 2024-06-03 10:25 | DVHDS2 ---
Discharge Summary Date of Admission May 27, 2024 at 19:32 Date of Discharge: Jun 03, 2024 Admitting Diagnosis Right-sided weakness Wounds: none Labs/Diagnostic Data: Laboratory Results Test 06/02/24 13:28 05/31/24 13:36 05/29/24 18:14 05/28/24 05:13 Phosphorus Level 8.9 mg/dL (2.4-5.1) Vitamin D 25-Hydroxy 15.0 ng/mL (30.0-100) Parathyroid Hormone (Intact) > 2000.0 pg/mL (18.4-80.1) Triglycerides Level 78 mg/dL (< 150) Cholesterol Level 84 mg/dL (< 200) LDL Cholesterol 27 mg/dL (< 100) HDL Cholesterol 40 mg/dL (40-59) Hepatitis A IgM Antibody Negative Hepatitis B Surface Antigen Negative (Negative) Hepatitis B Core IgM Antibody Negative (Negative) Hepatitis C Antibody Reactive (Negative) Sodium Level 137 mmol/L (136-145) Potassium Level 4.9 mmol/L (3.5-5.1) Chloride Level 99 mmol/L (98-107) Carbon Dioxide Level 24 mmol/L (20-31) Anion Gap 14 (5-15) Blood Urea Nitrogen 28 mg/dL (9-23) Creatinine 7.42 mg/dL (0.700-1.30) Glomerular Filtration Rate Calc 8 mL/min (>90) BUN/Creatinine Ratio 3.8 (10.0-20.0) Serum Glucose 86 mg/dL (74-106) Calcium Level 11.1 mg/dL (8.7-10.4) Test 05/27/24 20:07 05/27/24 17:15 Troponin I High Sensitivity 334 ng/L (</=54) White Blood Count 9.1 10^3/uL (4.4-10.8) Red Blood Count 5.80 10^6/uL (4.5-5.90) Hemoglobin 18.8 g/dL (13.5-17.5) Hematocrit 57.1 % (41.0-53.0) Mean Corpuscular Volume 98.4 fL (80.0-100.0) Mean Corpuscular Hemoglobin 32.4 pg (28.0-32.0) Mean Corpuscular Hemoglobin Concent 32.9 g/dL (32.0-36.0) Red Cell Distribution Width 18.3 % (11.8-14.3) Platelet Count 73 10^3/uL (140-450) Mean Platelet Volume 10.3 fL (6.9-10.8) Neutrophils (%) (Auto) 85.0 % (37.0-80.0) Lymphocytes (%) (Auto) 8.2 % (10.0-50.0) Monocytes (%) (Auto) 6.4 % (0.0-12.0) Eosinophils (%) (Auto) 0.1 % (0.0-7.0) Basophils (%) (Auto) 0.3 % (0.0-2.0) Neutrophils # (Auto) 7.7 10 ^3/uL (1.6-8.6) Lymphocytes # (Auto) 0.7 10 ^3/uL (0.4-5.4) Monocytes # (Auto) 0.6 10 ^3/uL (0-1.3) Eosinophils # (Auto) 0 10 ^3/uL (0-0.8) Basophils # (Auto) 0 10 ^3/uL (0-0.2) Nucleated Red Blood Cells 0.3 % Prothrombin Time 12.5 sec (9.3-11.8) Prothrombin Time INR 1.19 (0.9-1.15) Activated Partial Thromboplast Time 33.5 SEC (24.5-34.5) Magnesium Level 2.4 mg/dL (1.6-2.6) Total Bilirubin 1.5 mg/dL (0.2-1.0) Aspartate Amino Transferase (AST) 29 U/L (13-40) Alanine Aminotransferase (ALT) 29 U/L (7-40) Alkaline Phosphatase 320 U/L (46-116) B-Type Natriuretic Peptide 22.20 pg/mL (0-100) Total Protein 8.5 g/dL (5.7-8.2) Albumin 4.7 g/dL (3.2-4.8) Other Laboratory Tests 05/28/24 05:13 05/27/24 17:15 Brief Hx & Hospital Course: 59-year-old male with a history of ESRD on hemodialysis hypertension hypercholesterolemia hypothyroidism chronic tobacco use history of brain aneurysm chronic subarachnoid hemorrhage in 2001 history of CVA x3 with left- sided hemiparesis on Plavix and aspirin at home history of congestive heart failure came in for possible weakness in the right upper extremity and light terminal extremity. Workup was done CT head was negative except for old changes MRI brain was also negative except for wound changes. The patient had BERTHA which showed acute embolic CVA with a large intra-atrial septal aneurysm and associated PFO. Cardiology advised aspirin Plavix and outpatient follow up for event monitor patient received hemodialysis while in the hospital and wants to go home now. Vital signs are stable discharged home. Prescription for aspirin Plavix and Entresto transmitted to the pharmacy. Reviewed all home medications Consults/Reason for consult Neurology Dr. Varner Cardiology Operations or Procedures CT head MRI brain EEG Transesophageal echocardiogram Condition at Discharge: Fair Final Diagnosis/Problems List Acute embolic CVA with large intra-atrial septal aneurysm and associated PFO Rule out cardiac arrhythmias Intra-atrial septal aneurysm with associated PFO by BERTHA: Cardiology advised aspirin and Plavix and outpatient follow up in two weeks for event monitor NSTEMI, likely type II secondary to above Acute on chronic HFrEF, NYHA class II, newly diagnosed Cerebrovascular accident X3 with left-sided hemiparesis (on Plavix and ASA) Hx brain aneurysm, chronic subarachnoid hemorrhage in 2001 End-stage renal disease on hemodialysis Hypertension Hyperlipidemia Thyroid disease History of tobacco use Discharge Disposition: Home Discharge Instruct/Medications Diet: Renal Activity: Light activity Follow Up/Referral: Resume all previous home medications Follow up with your primary doctor Follow up with your special education math teacher for regular dialysis Follow up with the Cardiology Dr. Maria in two weeks for outpatient event monitor Medications: Entresto Aspirin Plavix Transmitted to the pharmacy Reviewed all other home medications 39 (Time taken for discharge summary 39 minutes) Discharge Statement: "Patient was advised to return to the ER or call 911 if any headaches, dizziness, shortness of breath, chest pain, abdominal pain, bleeding, fevers, or worsening of medical condition. Patient was counseled about treatment plan, medications, possible side effects, patientverbalized understanding. All questions were answered to the best of my ability. This discharge took greater then 30 minutes in planning, reviewing documentation, counseling the patient, and discussing with other team members." ASSESSMENT ASSESSMENT Hospital Course Improved Assessment Acute embolic CVA with large intra-atrial septal aneurysm and associated PFO Rule out cardiac arrhythmias Intra-atrial septal aneurysm with associated PFO by BERTHA: Cardiology advised aspirin and Plavix and outpatient follow up in two weeks for event monitor NSTEMI, likely type II secondary to above Acute on chronic HFrEF, NYHA class II, newly diagnosed Cerebrovascular accident X3 with left-sided hemiparesis (on Plavix and ASA) Hx brain aneurysm, chronic subarachnoid hemorrhage in 2001 End-stage renal disease on hemodialysis Hypertension Hyperlipidemia Thyroid disease History of tobacco use Date of Service: Jun 03, 2024 Billing Provider: JENAE MANCERA MD Common Visit Codes: 60322-ADI/OBS DISCH DAY >30min JENAE MANCERA MD Jun 03, 2024 10:25
--- NOTE | 2024-06-03 12:13 | DVHPN2 ---
Progress Note Date Seen: Jun 03, 2024 Medical Necessity Reason Pt with a Central, PICC or Fol: No Subjective Patient reports: No new complaints Other Systems: Patient seen and examined by myself on follow-up today Patient examined hemodialysis, blood pressure stable Objective vital signs Vital Sign Date Time Temp Pulse Resp B/P (MAP) Pulse Ox O2 Delivery O2 Flow Rate FiO2 06/03/24 08:16 97.9 95 16 133/83 (100) 96 97.9 06/03/24 08:00 Nasal Cannula* 2 28 Total Intake and Output 06/02/24 06/02/24 06/03/24 15:00 23:00 07:00 Intake Total 840 ml 480 ml Output Total 400 ml 0 ml Balance 440 ml 480 ml medications Current Medications Medications Dose Ordered Sig/Cameron Route Start Time Stop Time Status Last Admin Dose Admin Sevelamer HCl 800 mg TIDWM PO 05/28/24 08:00 06/02/24 17:40 800 MG Clopidogrel Bisulfate 75 mg DAILY PO 05/28/24 10:00 06/01/24 09:25 75 MG Ondansetron HCl 4 mg Q4HP PRN IV 05/27/24 19:45 Acetaminophen 650 mg Q6HP PRN PO 05/27/24 19:45 06/01/24 08:06 650 MG Nitroglycerin 0.4 mg Q5MINP PRN SL 05/27/24 19:45 Morphine Sulfate 2 mg Q30M PRN IV 05/27/24 19:45 Metoprolol Succinate 25 mg DAILY PO 05/29/24 10:00 05/31/24 10:27 25 MG Aspirin 81 mg DAILY PO 06/02/24 10:00 Sacubitril/ Valsartan 1 tab BID PO 06/01/24 22:00 06/02/24 21:08 1 TAB Hydralazine HCl 10 mg Q6HP PRN IV 06/01/24 15:45 Examination: LUNGS:Normal, CVS:Normal, MSK:Normal laboratory and microbiology Laboratory Tests 05/28/24 05:13 05/27/24 17:15 Test 05/28/24 05:13 Range/Units Serum Glucose 86 74-106 mg/dL Problem List/Assessment/Plan Problem List/Assessment/Plan End-stage renal disease Right arm weakness CVA NSTEMI Polycythemia Thrombocytopenia Vitamin-D deficiency Recommendations Continue with UF to 3 L as tolerated Ergocalciferol 96312 p.o. q.week Renal diet Avoid hypotension renal diet Hematology consult We will continue to follow up Plan discussed with: Patient Dietary Evaluation Review Comments: 1) Continue current plan of care Expected Outcomes/Goals: F/U in 3-5 days RICARDO ENCINAS MD Jun 03, 2024 12:13
[2024-06-03 13:00] VITALS: BP 132/89; PULSE 102; RESP 17; TEMP 97.5; O2SAT 98
[2024-06-03] MEDS: SEVELAMER 800 MG TAB PO SCH (13:39)
[2024-06-03] MEDS: ERGOCALCIFEROL 50,000 UNIT(1.25MG) CAP PO SCH (13:39)
[2024-06-03 17:15] VITALS: BP 132/85; PULSE 117; RESP 20; TEMP 98; O2SAT 95
== END 2024-06-03 17:30 | disposition home or self-care (01) | DRG 45 ==
LOC: EDBD 16:22 → ER 16:22 → TELE 19:32 → TELE-WESTW 19:39
PROVIDERS: ADMIT Nurse Practitioner; ATTEND Family Medicine
PROC: 5A1D70Z Performance of Urinary Filtration, Intermittent, Less than 6 Hours Per Day (ICD-10-PCS; 2024-05-29)
PROC: 5A1D70Z Performance of Urinary Filtration, Intermittent, Less than 6 Hours Per Day (ICD-10-PCS; 2024-06-01)
PROC: B24BZZ4 Ultrasonography of Heart with Aorta, Transesophageal (ICD-10-PCS; principal; 2024-06-02)
PROC: 5A1D70Z Performance of Urinary Filtration, Intermittent, Less than 6 Hours Per Day (ICD-10-PCS; 2024-06-02)
PROC: 5A1D70Z Performance of Urinary Filtration, Intermittent, Less than 6 Hours Per Day (ICD-10-PCS; 2024-06-03)
DX: I63.9 Cerebral infarction, unspecified (principal); I21.A1 Myocardial infarction type 2; G92.8 Other toxic encephalopathy; I50.23 Acute on chronic systolic (congestive) heart failure; D69.6 Thrombocytopenia, unspecified; E44.1 Mild protein-calorie malnutrition; I25.3 Aneurysm of heart; N18.6 End stage renal disease; Q61.3 Polycystic kidney, unspecified; G81.91 Hemiplegia, unspecified affecting right dominant side; I13.2 Hypertensive heart and chronic kidney disease with heart failure and with stage 5 chronic kidney disease, or end stage renal disease; I95.9 Hypotension, unspecified; E78.00 Pure hypercholesterolemia, unspecified; I25.10 Atherosclerotic heart disease of native coronary artery without angina pectoris; D75.1 Secondary polycythemia; E55.9 Vitamin D deficiency, unspecified; I70.0 Atherosclerosis of aorta; H54.62 Unqualified visual loss, left eye, normal vision right eye; Q21.12 Patent foramen ovale; Z99.2 Dependence on renal dialysis; Z79.899 Other long term (current) drug therapy; Z79.82 Long term (current) use of aspirin; Z79.02 Long term (current) use of antithrombotics/antiplatelets; Z80.0 Family history of malignant neoplasm of digestive organs; Z83.3 Family history of diabetes mellitus; Z82.49 Family history of ischemic heart disease and other diseases of the circulatory system; I25.2 Old myocardial infarction; Z86.16 Personal history of COVID-19; Z68.23 Body mass index [BMI] 23.0-23.9, adult
CPT/HCPCS: 36415; 70450; 70551; 71045; 80048; 80053; 80061; 80074; 82306; 83735; 83880; 83970; 84100; 84484; 85025; 85610; 85730; 86803; 87340; 90935; 93005; 93306; 93312; 93886; 97163; 99152; 99291; G0378; J2250

== ENCOUNTER 2024-07-06 12:57 | Inpatient (IN) | payer MEDICAID ==
[~2024-07-06] VITALS: Ht 182.9 cm; Wt 75.0 kg
[~2024-07-06 12:57] MED LIST changes: +ASPI-628 PO; +CLOP75TA28 PO; -DOXY1CAP57 PO; -FER325T PO; +FERR1TAB17 PO; -LEVO500T91 PO; +OMEP1CAP70 PO; +SACU1TAB PO; +SEVE800T10 PO
[2024-07-06] MEDS: ACETAMINOPHEN 325 MG TAB PO ONE (14:51)
--- NOTE | 2024-07-06 15:17 | DVH ---
XY CHEST TWO VIEWS ROUTINE CLINICAL HISTORY: fevers COMPARISON: None TECHNIQUE: Frontal and lateral view of the chest was obtained FINDINGS: Lines and Tubes: Left internal jugular catheter in place with the tip in the right atrium. Lungs: No focal consolidation. Pleura: No effusion. No pneumothorax. Cardiomediastinal contours: Unremarkable Bones: No acute osseous abnormality. IMPRESSION: 1. Left internal jugular catheter in place with the tip in the right atrium.
[2024-07-06 15:44] LABS: Basophils # (auto) 0 10 ^3/uL (0-0.2); Eosinophils # (auto) 0 10 ^3/uL (0-0.8); Lymphocytes # (auto) 0.4 10 ^3/uL (0.4-5.4); Monocytes # (auto) 0.4 10 ^3/uL (0-1.3); Nucleated Red Blood Cells % 0.1 %; Platelet Count (auto) 35 10^3/uL (140-450)
[2024-07-06 15:46] LABS: Basophils % (auto) 0.2 % (0.0-2.0); Hematocrit 46.7 % (41.0-53.0); Lymphocytes % (auto) 4.1 % (10.0-50.0); Mean Corpuscular Hgb Conc. 32.2 g/dL (32.0-36.0); Mean Corpuscular Volume 96.3 fL (80.0-100.0); Monocytes % (auto) 4.3 % (0.0-12.0); Neutrophils # (auto) 8.2 10 ^3/uL (1.6-8.6); Neutrophils % (auto) 91.4 % (37.0-80.0); Red Blood Cells 4.85 10^6/uL (4.5-5.90); Red Cell Distribution Width 19.1 % (11.8-14.3)
[2024-07-06 16:01] LABS: INR 1.32 (0.9-1.15); Partial Thromboplastin Time 37.7 SEC (24.5-34.5); Prothrombin Time 13.6 sec (9.3-11.8)
[2024-07-06 16:03] LABS: Alanine Aminotransferase 21 U/L (7-40); Anion Gap 13 (5-15); BUN/Creatinine Ratio 4.8 (10.0-20.0); Calcium 9.8 mg/dL (8.7-10.4); Carbon Dioxide 24 mmol/L (20-31); Chloride 100 mmol/L (98-107); Glucose 95 mg/dL (74-106); Potassium 4.6 mmol/L (3.5-5.1); Sodium 137 mmol/L (136-145)
[2024-07-06 16:04] LABS: Albumin 3.8 g/dL (3.2-4.8); Alkaline Phosphatase 204 U/L (46-116); Aspartate Aminotransferase 29 U/L (13-40); Bilirubin, Total 1.9 mg/dL (0.2-1.0); Blood Urea Nitrogen 38 mg/dL (9-23); Total Protein 6.6 g/dL (5.7-8.2)
[2024-07-06 16:06] LABS: Lactic Acid w/Reflex 3.6 mmol/L (0.4-2.0)
[2024-07-06 16:10] VITALS: PULSE 113; RESP 20; O2SAT 96
[2024-07-06] MEDS: cefTRIAXone 2GM/50ML D5W 50 ML IV ONE (16:26)
[2024-07-06] MEDS: SODIUM CHLORIDE 0.9% 500 ML IV ONE (16:26)
[2024-07-06 16:31] LABS: COVID19 ANTIGEN SOFIA FIA NEGATIVE (NEGATIVE)
[2024-07-06 16:33] LABS: Rapid Influenza A Positive (Negative); Rapid Influenza B Positive (Negative)
--- NOTE | 2024-07-06 17:01 | ED.PDOC ---
History of Present Illness HPI Comments 59 year old male brought in by EMS presents to the ED with a chief complaint of fever onset today. Per EMS, patient was at dialysis when he began experiencing fever, chills and "felt cold." Patient states he fell yesterday, hit his head and is currently experiencing RT elbow pain, swelling. PMHx ESRD, HT, CHF, HLD, CVA. Denies weakness, nausea, vomiting, diarrhea, abdominal pain, dizziness, blurry vision. No other symptoms or modifying factors present at this time. Chief Complaint: Fever Time Seen by MD: 16:50 Reviewed Notes: Medications, Allergies Information Source: Patient, Relative (Child), Emergency Med Personnel Mode of Arrival: EMS Timing: Hours Duration: Since onset Prehospital treatment: None Severity: Moderate Fever: Temperature max (100.2 F) Context: Recent: None Symptoms: Fever, Chills Modifying Factors: Nothing Associated Signs and Symptoms: None Past Medical History PAST MEDICAL HISTORY: CVA (x 4), ESRD, High Lipids, HTN Surgical History: Denies all surgeries Family History Family History: Family hx of Cancer Social History Smoker: Non-Smoker Alcohol: Denies ETOH Use Drugs: Denies Drug Use Lives In: Home Constitutional: Chills, Fever EENTM: No Symptoms Reported Respiratory: No Symptoms Reported Cardiovascular: No Symptoms Reported Gastrointestinal: No Symptoms Reported Genitourinary: No Symptoms Reported Neurological: No Symptoms Reported Musculoskeletal: Elbow (RT) Integumentary: No Symptoms Reported Allergic/Immunocompromised: others Hematologic/Lymphatic: No Symptoms Reported Endocrine: No Symptoms Reported Psychiatric: No symptoms Reported All Other Systems: Reviewed and Negative Physical Exam General Appearance: Mild Distress, Moderate Distress HEENT: Normal ENT Inspection, PERRL/EOMI Neck: Full Range of Motion, Non-Tender, Normal Inspection Respiratory: Chest Non-Tender, Lungs Clear, No Accessory Muscle Use, No Respiratory Distress, Normal Breath Sounds Cardiovascular: No Edema, No JVD, No Murmur, No Gallop, Normal Peripheral Pulses, Regular Rate/Rhythm Breast Exam: Deferred Gastrointestinal: No Organomegaly, Non Tender, No Pulsatile Mass, Normal Bowel Sounds, Soft Genitalia: Deferred Pelvic: Deferred Rectal: Deferred Extremities: No calf tenderness, Normal capillary refill, Normal inspection, Normal range of motion, Non-tender, No pedal edema Musculoskeletal : Location: Right Extremity Location: Elbow Apperance: Swelling, Deformity, Limited ROM, Tenderness: Mild, Tenderness: Moderate, Other (PATIENT FELL FEW DAYS AGO) Neurologic: Alert, family law attorney II-XII nml as Tested, No Motor Deficits, Normal Affect, Normal Mood, No Sensory Deficits Cerebellar Function: Normal Reflexes: Normal Skin: Dry, Normal Color, Warm Peripheral Pulses: 1+ carotid (R), 1+ carotid (L) Lymphatic: No Adenopathy Was a procedure done? Was a procedure done?: No EKG EKG : Pulse Rate (adult): 89 [place]: RAD Cardiac Rhythm: NSR Block: RBBB Fever Differential Dx Differential Diagnosis: Dehydration, Drug Toxicity, Electrolyte Imbalance, Influenza, Pneumonia, Pulmonary Embolus, Viral Syndrome X-Ray, Labs, Meds, VS Vital Signs Date Time Temp Pulse Resp B/P (MAP) Pulse Ox O2 Delivery O2 Flow Rate FiO2 07/06/24 17:08 101 21 96 Nasal Cannula* 6 44 07/06/24 17:00 98.3 07/06/24 16:11 108 07/06/24 16:10 113 20 96 Nasal Cannula* 4 36 07/06/24 15:16 100.2 124 20 111/52 (71) 86 100.2 07/06/24 13:00 102.9 120 20 105/76 (86) 95 Lab Test 07/06/24 17:11 07/06/24 17:10 07/06/24 15:30 07/06/24 15:16 Range/Units Lactic Acid Level 2.9 *H 3.6 *H 0.4-2.0 mmol/L Troponin I High Sensitivity 61 *H 46 </=54 ng/L Blood Gas Specimen Type Venous Blood Gas Sample Site Vbg - n/a Blood Gas Patient Temperature 37.0 Arterial Blood Date Drawn [id number] Gallo Test N/a Venous Blood pH 7.384 7.320-7.430 Venous Blood pCO2 at Patient Temp 42.5 38.0-54.0 mmHg Venous Blood pO2 at Patient Temp < 36.5 23.0-48.0 mmHg Venous Blood HCO3 24.8 22.0-29.0 mmol/L Venous Blood Base Excess -0.4 -2.0-3.0 mmol/L Blood Gas Liter Flow 5.00 Blood Gas Modality Nasal cannula FiO2 % 40.0 Specimen Drawn By systems test technician White Blood Count 9.0 4.4-10.8 10^3/uL Red Blood Count 4.85 4.5-5.90 10^6/uL Hemoglobin 15.0 13.5-17.5 g/dL Hematocrit 46.7 41.0-53.0 % Mean Corpuscular Volume 96.3 80.0-100.0 fL Mean Corpuscular Hemoglobin 31.0 28.0-32.0 pg Mean Corpuscular Hemoglobin Concent 32.2 32.0-36.0 g/dL Red Cell Distribution Width 19.1 H 11.8-14.3 % Platelet Count 35 L 140-450 10^3/uL Mean Platelet Volume 9.9 6.9-10.8 fL Neutrophils (%) (Auto) 91.4 H 37.0-80.0 % Lymphocytes (%) (Auto) 4.1 L 10.0-50.0 % Monocytes (%) (Auto) 4.3 0.0-12.0 % Eosinophils (%) (Auto) 0.0 0.0-7.0 % Basophils (%) (Auto) 0.2 0.0-2.0 % Neutrophils # (Auto) 8.2 1.6-8.6 10 ^3/uL Lymphocytes # (Auto) 0.4 0.4-5.4 10 ^3/uL Monocytes # (Auto) 0.4 0-1.3 10 ^3/uL Eosinophils # (Auto) 0 0-0.8 10 ^3/uL Basophils # (Auto) 0 0-0.2 10 ^3/uL Nucleated Red Blood Cells 0.1 % Platelet Estimate Decreased Prothrombin Time 13.6 H 9.3-11.8 sec Prothrombin Time INR 1.32 H 0.9-1.15 Activated Partial Thromboplast Time 37.7 H 24.5-34.5 SEC D-Dimer, Quantitative 15.77 H 0.0-0.49 mg/L FEU Sodium Level 137 136-145 mmol/L Potassium Level 4.6 3.5-5.1 mmol/L Chloride Level 100 98-107 mmol/L Carbon Dioxide Level 24 20-31 mmol/L Anion Gap 13 5-15 Blood Urea Nitrogen 38 H 9-23 mg/dL Creatinine 7.85 H 0.700-1.30 mg/dL Glomerular Filtration Rate Calc 7 >90 mL/min BUN/Creatinine Ratio 4.8 L 10.0-20.0 Serum Glucose 95 74-106 mg/dL Calcium Level 9.8 8.7-10.4 mg/dL Total Bilirubin 1.9 H 0.2-1.0 mg/dL Aspartate Amino Transferase (AST) 29 13-40 U/L Alanine Aminotransferase (ALT) 21 7-40 U/L Alkaline Phosphatase 204 H 46-116 U/L Total Protein 6.6 5.7-8.2 g/dL Albumin 3.8 3.2-4.8 g/dL Lipase 58 H 12-53 U/L Influenza Type A Antigen Positive Negative Influenza Type B Antigen Positive Negative SARS-CoV-2 Antigen (Rapid) Negative NEGATIVE Current Medications Medications (Trade) Dose Ordered Sig/Cameron Route Start Time Stop Time Status Last Admin Acetaminophen (Tylenol Tablet) 650 mg ONCE ONCE PO 07/06/24 14:45 07/06/24 14:46 DC 07/06/24 14:51 Ceftriaxone Sodium/Dextrose 50 ml @ 50 mls/hr ONCE ONCE IV 07/06/24 15:15 07/06/24 16:32 DC 07/06/24 16:26 Piperacillin Sod/ Tazobactam Sod 100 ml @ 100 mls/hr ONCE ONCE IV 07/06/24 15:30 07/06/24 16:32 DC 07/06/24 17:32 Sodium Chloride 500 ml @ 500 mls/hr Q1H ONCE IV 07/06/24 15:30 07/06/24 16:32 DC 07/06/24 16:26 [place] [id number] Ph: [phone] DIAGNOSTIC IMAGING Diagnostic Imaging Report : [id number] Signed PATIENT: ARVIND MANCILLA ACCT: [id number] UNIT: [id number] : 1965 LOC: ER ROOM / BED: / AGE / SEX: 59 / M ADM STATUS: REG ER SERVICE 1434 ORDERING PHYSICIAN: JOYCE MOYA ELECTRICAL TESTER PROCEDURE(s): CXR2 - CHEST TWO VIEWS ROUTINE REASON: fevers ORDER NUMBER(s): [id number], ACCESSION NUMBER(s): [id number] XY CHEST TWO VIEWS ROUTINE CLINICAL HISTORY: fevers COMPARISON: None TECHNIQUE: Frontal and lateral view of the chest was obtained FINDINGS: Lines and Tubes: Left internal jugular catheter in place with the tip in the right atrium. Lungs: No focal consolidation. Pleura: No effusion. No pneumothorax. Cardiomediastinal contours: Unremarkable Bones: No acute osseous abnormality. IMPRESSION: 1. Left internal jugular catheter in place with the tip in the right atrium. ATED BY: CINTHYA PALACIOS Jr., DO DICTATED DATE/TIME: 07/06/241514 SIGNED BY: CINTHYA PALACIOS Jr., DO SIGNED DATE/TIME: 07/06/241514 CC: [place] [id number] Ph: [phone] DIAGNOSTIC IMAGING Diagnostic Imaging Report : [id number] Signed PATIENT: ARVIND MANCILLA ACCT: [id number] UNIT: [id number] : 1965 LOC: ER ROOM / BED: / AGE / SEX: 59 / M ADM STATUS: REG ER SERVICE 55 ORDERING PHYSICIAN: FLAKITA CAVAZOS MD PROCEDURE(s): RELB3 - R ELBOW 3 VIEW XRAY REASON: FALL ORDER NUMBER(s): [id number], ACCESSION NUMBER(s): [id number] CLINICAL INDICATION: FALL TECHNIQUE: 3 radiographic views of the right elbow were obtained. Comparison: None FINDINGS/IMPRESSION: There is no evidence of acute fracture or dislocation. Soft tissue swelling over the dorsal aspect of the distal femur and elbow. There are no underlying bony fractures visualized. The visualized joint space is well maintained. No joint effusion noted. The alignment is anatomical. There is no radiopaque foreign body. ATED BY: CINTHYA PALACIOS Jr., DO DICTATED DATE/TIME: 07/06/241746 SIGNED BY: CINTHYA PALACIOS Jr., DO SIGNED DATE/TIME: 07/06/241746 CC: X-Ray, Labs, Meds, VS Comment COURSE IN THE EMERGENCY DEPARTMENT EVENTFUL PATIENT CAME IN A SEPTIC WITH A FEBRILE TACHYCARDIC FROM DIALYSIS VERY WEAK AND SHAKING PATIENT WITH A HISTORY OF HYPERTENSION HIGH CHOLESTEROL CHF CVA WITH LEFT HEMIPARESIS EKG NORMAL SINUS RHYTHM AT 89 WITH RIGHT AXIS DEVIATION AND RIGHT BUNDLE-BRANCH BLOCK INCOMPLETE CHEST X-RAY NORMAL X-RAY TO THE RIGHT EAR BOTH NEGATIVE ON HIS SOFT TISSUE SWELLING CBC 9000 WITH 91% NEUTROPHILS NORMAL H&H AND PLATELET COUNT AT 3500 INR 1.32 TROPONIN 46 AND 61 BLOOD CULTURE PENDING LIPASE 58 D-DIMER ELEVATED AT 15.77 INFLUENZA A POSITIVE INFLUENZA B POSITIVE COVID-19 NEGATIVE ABG IS NEGATIVE LACTIC ACID 3.6 AND 2.9 CHEST ANGIO PENDING CMP GFR AT SEVEN. PATIENT ON DIALYSIS DR. MITCHELL TO FOLLOW UP Time of 1ST Reevaluation: 17:20 Reevaluation 1ST: Unchanged Time of 2ND Reevaluation: 18:04 Reevaluation 2ND: Unchanged Patient Education/Counseling: Diagnosis, Treatment, Prognosis Family Education/Counseling: Diagnosis, Treatment, Prognosis Assigned to Dr. DR MITCHELL Change of Shift?: Yes Departure 1 Departure Time of Disposition: 18:11 Impression: Primary Impression: Sepsis Additional Impressions: End stage renal disease on dialysis Elevated d-dimer Elevated troponin Elevated lipase Influenza A H1N1 infection Invasive Haemophilus influenzae type B infection Elevated lactic acid level Injury of right elbow Qualified Codes: S59.901A - Unspecified injury of right elbow, initial encounter Disposition: ADMITTED INPATIENT Admit to: Tele Condition: Serious Critical Care Note Critical Care Time?: No Stability Stability form required: Yes Unstable for transfer: Telemetry monitoring (Telemetry monitoring required), Requires medication (Requires Med for stabilization) Heart Score Heart Score: Heart Score Response (Comments) Value History Moderate Suspicious 1 EKG Repolarization Disturb 1 Age 45-64 1 Risk Factors >3 or Hx ASHD 2 Troponin 1-2 x's Normal limit 1 Total 6 I personally scribed for FLAKITA CAVAZOS MD ([email or web address]) on 07/06/24 at 17:01. Electronically submitted by Martha Do ([email or web address]). I personally scribed for FLAKITA CAVAZOS MD ([email or web address]) on 07/06/24 at 18:01. Electronically submitted by Martha Do ([email or web address]). FLAKITA CAVAZOS MD Jul 06, 2024 17:01
[2024-07-06 17:05] LABS: Platelet Estimate Decreased
[2024-07-06 17:08] VITALS: PULSE 101; RESP 21; O2SAT 96
[2024-07-06] MEDS: PIPERACILLIN-TAZOB 3.375GM 100 ML IV ONE (17:32)
--- NOTE | 2024-07-06 17:50 | DVH ---
CLINICAL INDICATION: FALL TECHNIQUE: 3 radiographic views of the right elbow were obtained. Comparison: None FINDINGS/IMPRESSION: There is no evidence of acute fracture or dislocation. Soft tissue swelling over the dorsal aspect of the distal femur and elbow. There are no underlying ace ny fractures visualized. The visualized joint space is well maintained. No joint effusion noted. The alignment is anatomical. There is no radiopaque foreign body.
--- NOTE | 2024-07-06 18:13 | ECG ---
[facility] Test Date: 2024-07-06 Test Time: 18:11:26 Pat Name: ARVIND MANCILLA Department: ED Room: 0237 Gender: M New Patient Escort: : 1965 Requested By: FLAKITA CAVAZOS Order Number: [id number] Reading MD: Juan J Bower Measurements Intervals [place] Rate: 89 P: 52 MD: 154 QRS: 111 QRSD: 104 T: -87 QT: 359 QTc: 437 Interpretive Statements Sinus rhythm Left posterior fascicular block Abnormal R-wave progression, late transition Borderline repolarization abnormality Electronically Signed On 07-09-2024 16:33:00 PST by Juan J Bower Please click the below link to view image of tracing.
[2024-07-06 19:50] VITALS: PULSE 82; RESP 21; O2SAT 98
[2024-07-06] MEDS: IOHEXOL 350 MG/ML 100ML IJ ONE (20:25)
--- NOTE | 2024-07-06 22:12 | DVH ---
CTA Chest with intravenous contrast INDICATION: VERY HIGH D-DIMER FOR PULMONARY EMBOLISM Comparison Study: None available at time of dictation. TECHNIQUE: Multidetector spiral CTA of the chest was performed of the chest with intravenous contrast . PULMONARY ANGIOGRAPHY PROTOCOL was utilized using a bolus-tracking technique centered on the main p ulmonary artery. Axial, coronal and sagittal multiplanar and MIP reformats were performed. Radiation Dose : 1. Chest: CTDI volume is 23.95 mGy. Dose-length product is 886.21 mGy*cm The dose indicators for CT are the volume Computed Tomography (CT) Dose Index (CTDIvol) and the Dose Length Product (DLP), and are measured in units of mGy and mGy-cm, respectively. These indicators are not patient dose, but values generated from the CT scanner acquisition factors. The report includes radiation exposure data for exposures received during this examination. Findings: Pulmonary artery: No definitive evidence of pulmonary embolism. No dilation of the pulmonary trunk. No right heart str ain. Potential filling defect in the segmental branch left upper lobe. Lower neck: 1.5 cm exophytic hypodense lesion with peripheral calcification arising from the posteri or left thyroid lobe.. Lungs: Within normal limits. Heart/Vascular Structures: Left IJ catheter with tip terminating near the cavoatrial junction. Ossifi cation of the coronary vessels. Lymph Nodes: No adenopathy Pleura: Trace bilateral pleural effusions. Musculoskeletal: Chronic appearing posterior left rib fractures. Right proximal clavicle fracture. A cute to subacute fractures involving the left anterior 4th through 7th ribs. Body wall: Within normal limits.. Upper abdomen: Severe polycystic kidneys with associated calcifications. Some of the lesions are hy perdense which may represent hemorrhagic or proteinaceous. Subcentimeter hypodense hepatic lesions. Splenomegaly. IMPRESSION: No definitive evidence of pulmonary embolism. Potential area of small filling defect in the segmental branch of the left upper lobe which is poorly characterized due to motion artifact and contrast bolu s timing. No dilation of the pulmonary trunk. No right heart strain. No aortic aneurysm or dissection. Acute to subacute fractures involving the left anterior 4th through 7th ribs. Ancillary findings as described above.
[2024-07-06] MEDS ORDERED: ALBUTEROL SULF 2.5 MG/0.5ML(0.5%) NEB SOLN NEB PRN (22:30)
[2024-07-06] MEDS ORDERED: ONDANSETRON HCL 4 MG/2 ML VIAL IV PRN (22:30)
[2024-07-06 22:56] VITALS: BP 121/78; PULSE 90; RESP 26; TEMP 99; O2SAT 98
--- NOTE | 2024-07-06 23:36 | DVHHP2 ---
History of Present Illness Reason for Visit: Chills History of Present Illness 59-year-old male presents for evaluation of chills. Patient was being dialyzed today when snf into his treatment he started feel chills and shaking. They checked his temperature and it was 102.1. Patient denies chest pain. He reports mild shortness for breath. Reports generalized weakness. No other acute complaints were reported. Past Medical History Hypertension, dyslipidemia, CVA and end-stage renal disease. Past Surgical History Left chest dialysis catheter Family History Cancer Smoke: No ALCOHOL: none Drugs: None Lives: with Family Review of Systems Review of Systems Review of systems are currently negative otherwise addressed in HPI. Allergies: Coded Allergies: Codeine (Verified Adverse Reaction, Unknown, 06/02/24) Medications Current Medications Medications Dose Ordered Sig/Cameron Route Start Time Stop Time Status Last Admin Dose Admin Aspirin 81 mg DAILY PO 07/07/24 10:00 UNV Atorvastatin Calcium 40 mg HS PO 07/07/24 22:00 UNV Clopidogrel Bisulfate 75 mg DAILY PO 07/07/24 10:00 UNV Nifedipine 60 mg DAILY PO 07/07/24 10:00 UNV Sacubitril/ Valsartan 1 tab BID PO 07/07/24 10:00 UNV Sevelamer HCl 800 mg TIDWM PO 07/07/24 08:00 UNV Oseltamivir Phosphate 75 mg Q12HR PO 07/07/24 10:00 07/12/24 09:59 UNV Azithromycin 250 ml @ 125 mls/hr DAILY IV 07/07/24 10:00 UNV Albuterol 2.5 mg Q6HPRN PRN NEB 07/06/24 22:30 UNV Acetaminophen/ Hydrocodone Bitart 1 tab Q4HP PRN PO 07/06/24 22:30 UNV Temazepam 15 mg QHSP PRN PO 07/06/24 22:30 UNV Ondansetron HCl 4 mg Q4HP PRN IV 07/06/24 22:30 UNV Acetaminophen 650 mg Q6HP PRN PO 07/06/24 22:30 UNV Exam Vital Signs Vital Signs Date Time Temp Pulse Resp B/P (MAP) Pulse Ox O2 Delivery O2 Flow Rate FiO2 07/06/24 23:00 85 18 114/72 (86) 97 07/06/24 22:56 99.0 5.0 40 99.0 07/06/24 19:50 Nasal Cannula* Exam Gen: 59-year-old male distress Skin: Warm, dry, normal color and texture, no rash. HEENT: Normocephalic atraumatic, mucous membranes moist and pink. Neck: Cervical and supraclavicular nodes normal without enlargement, trachea is midline, thyroid gland is normal without masses. Pulmonary: Clear to auscultation and percussion bilaterally. Cardiac: Regular rate and rhythm. No murmur Abdomen: Soft, nontender, nondistended, bowel sounds present all 4 quadrants, no guarding, no rigidity, no organomegaly. Extremities: No cyanosis, clubbing, no edema Neuro: Cranial nerves II through XII grossly intact, normal affect and speech, no focal motor deficits. Labs/Xrays ORDERING PHYSICIAN: JOYCE MOYA NP PROCEDURE(s): CXR2 - CHEST TWO VIEWS ROUTINE REASON: fevers ORDER NUMBER(s): [id number], ACCESSION NUMBER(s): [id number] CHEST TWO VIEWS ROUTINE CLINICAL HISTORY: fevers COMPARISON: None TECHNIQUE: Frontal and lateral view of the chest was obtained FINDINGS: Lines and Tubes: Left internal jugular catheter in place with the tip in the right atrium. Lungs: No focal consolidation. Pleura: No effusion. No pneumothorax. Cardiomediastinal contours: Unremarkable Bones: No acute osseous abnormality. IMPRESSION: 1. Left internal jugular catheter in place with the tip in the right atrium. RING PHYSICIAN: FLAKITA CAVAZOS MD PROCEDURE(s): RELB3 - R ELBOW 3 VIEW XRAY REASON: FALL ORDER NUMBER(s): [id number], ACCESSION NUMBER(s): [id number] CLINICAL INDICATION: FALL TECHNIQUE: 3 radiographic views of the right elbow were obtained. Comparison: None FINDINGS/IMPRESSION: There is no evidence of acute fracture or dislocation. Soft tissue swelling over the dorsal aspect of the distal femur and elbow. There are no underlying bony fractures visualized. The visualized joint space is well maintained. No joint effusion noted. The alignment is anatomical. There is no radiopaque foreign body. RING PHYSICIAN: FLAKITA CAVAZOS MD PROCEDURE(s): CTACH - CT ANGIO CHEST CONTRAST REASON: VERY HIGH D-DIMER FOR PULMONARY EMBOLISM ORDER NUMBER(s): [id number], ACCESSION NUMBER(s): [id number] CTA Chest with intravenous contrast INDICATION: VERY HIGH D-DIMER FOR PULMONARY EMBOLISM Comparison Study: None available at time of dictation. TECHNIQUE: Multidetector spiral CTA of the chest was performed of the chest with intravenous contrast. PULMONARY ANGIOGRAPHY PROTOCOL was utilized using a bolus- tracking technique centered on the main pulmonary artery. Axial, coronal and sagittal multiplanar and MIP reformats were performed. Radiation Dose : 1. Chest: CTDI volume is 23.95 mGy. Dose-length product is 886.21 mGy*cm The dose indicators for CT are the volume Computed Tomography (CT) Dose Index (CTDIvol) and the Dose Length Product (DLP), and are measured in units of mGy and mGy-cm, respectively. These indicators are not patient dose, but values generated from the CT scanner acquisition factors. The report includes radiation exposure data for exposures received during this examination. Findings: Pulmonary artery: No definitive evidence of pulmonary embolism. No dilation of the pulmonary trunk. No right heart strain. Potential filling defect in the segmental branch left upper lobe. Lower neck: 1.5 cm exophytic hypodense lesion with peripheral calcification arising from the posterior left thyroid lobe.. Lungs: Within normal limits. Heart/Vascular Structures: Left IJ catheter with tip terminating near the cavoatrial junction. Ossification of the coronary vessels. Lymph Nodes: No adenopathy Pleura: Trace bilateral pleural effusions. Musculoskeletal: Chronic appearing posterior left rib fractures. Right proximal clavicle fracture. Acute to subacute fractures involving the left anterior 4th through 7th ribs. Body wall: Within normal limits.. Upper abdomen: Severe polycystic kidneys with associated calcifications. Some of the lesions are hyperdense which may represent hemorrhagic or proteinaceous. Subcentimeter hypodense hepatic lesions. Splenomegaly. IMPRESSION: No definitive evidence of pulmonary embolism. Potential area of small filling defect in the segmental branch of the left upper lobe which is poorly characterized due to motion artifact and contrast bolus timing. No dilation of the pulmonary trunk. No right heart strain. No aortic aneurysm or dissection. Acute to subacute fractures involving the left anterior 4th through 7th ribs. Ancillary findings as described above. Labs Test 07/06/24 19:42 07/06/24 17:11 07/06/24 17:10 07/06/24 15:30 Range/Units Troponin I High Sensitivity 129 *H </=54 ng/L Lactic Acid Level 2.9 *H 0.4-2.0 mmol/L Blood Gas Specimen Type Venous Blood Gas Sample Site Vbg - n/a Blood Gas Patient Temperature 37.0 Arterial Blood Date Drawn [id number] Gallo Test N/a Venous Blood pH 7.384 7.320-7.430 Venous Blood pCO2 at Patient Temp 42.5 38.0-54.0 mmHg Venous Blood pO2 at Patient Temp < 36.5 23.0-48.0 mmHg Venous Blood HCO3 24.8 22.0-29.0 mmol/L Venous Blood Base Excess -0.4 -2.0-3.0 mmol/L Blood Gas Liter Flow 5.00 Blood Gas Modality Nasal cannula FiO2 % 40.0 Specimen Drawn By hematology technician White Blood Count 9.0 4.4-10.8 10^3/uL Red Blood Count 4.85 4.5-5.90 10^6/uL Hemoglobin 15.0 13.5-17.5 g/dL Hematocrit 46.7 41.0-53.0 % Mean Corpuscular Volume 96.3 80.0-100.0 fL Mean Corpuscular Hemoglobin 31.0 28.0-32.0 pg Mean Corpuscular Hemoglobin Concent 32.2 32.0-36.0 g/dL Red Cell Distribution Width 19.1 H 11.8-14.3 % Platelet Count 35 L 140-450 10^3/uL Mean Platelet Volume 9.9 6.9-10.8 fL Neutrophils (%) (Auto) 91.4 H 37.0-80.0 % Lymphocytes (%) (Auto) 4.1 L 10.0-50.0 % Monocytes (%) (Auto) 4.3 0.0-12.0 % Eosinophils (%) (Auto) 0.0 0.0-7.0 % Basophils (%) (Auto) 0.2 0.0-2.0 % Neutrophils # (Auto) 8.2 1.6-8.6 10 ^3/uL Lymphocytes # (Auto) 0.4 0.4-5.4 10 ^3/uL Monocytes # (Auto) 0.4 0-1.3 10 ^3/uL Eosinophils # (Auto) 0 0-0.8 10 ^3/uL Basophils # (Auto) 0 0-0.2 10 ^3/uL Nucleated Red Blood Cells 0.1 % Platelet Estimate Decreased Prothrombin Time 13.6 H 9.3-11.8 sec Prothrombin Time INR 1.32 H 0.9-1.15 Activated Partial Thromboplast Time 37.7 H 24.5-34.5 SEC D-Dimer, Quantitative 15.77 H 0.0-0.49 mg/L FEU Sodium Level 137 136-145 mmol/L Potassium Level 4.6 3.5-5.1 mmol/L Chloride Level 100 98-107 mmol/L Carbon Dioxide Level 24 20-31 mmol/L Anion Gap 13 5-15 Blood Urea Nitrogen 38 H 9-23 mg/dL Creatinine 7.85 H 0.700-1.30 mg/dL Glomerular Filtration Rate Calc 7 >90 mL/min BUN/Creatinine Ratio 4.8 L 10.0-20.0 Serum Glucose 95 74-106 mg/dL Calcium Level 9.8 8.7-10.4 mg/dL Total Bilirubin 1.9 H 0.2-1.0 mg/dL Aspartate Amino Transferase (AST) 29 13-40 U/L Alanine Aminotransferase (ALT) 21 7-40 U/L Alkaline Phosphatase 204 H 46-116 U/L Total Protein 6.6 5.7-8.2 g/dL Albumin 3.8 3.2-4.8 g/dL Lipase 58 H 12-53 U/L Test 07/06/24 15:16 Range/Units Influenza Type A Antigen Positive Negative Influenza Type B Antigen Positive Negative SARS-CoV-2 Antigen (Rapid) Negative NEGATIVE Assessment/Plan Assessment/Plan Assessment Acute respiratory distress End-stage renal disease , dialysis dependent Hypertension Influenza Plan Admit the patient to Med surge to the hospitalist Resume home medications Tamiflu Azithromycin Med nebs Continue treatment per orders. Plan discussed with: Patient My Orders Orders - KAVITHA NGUYỄN AGACNP Procedure Category Date Status Time Aspirin Tablet PHA 07/07/24 Logged 10:00 Atorvastatin (Lipitor) PHA 07/07/24 Logged 22:00 Clopidogrel Bisulfate PHA 07/07/24 Logged (Plavix) 10:00 Nifedipine Er PHA 07/07/24 Logged (Procardia Xl 10:00 Sacubitril-Valsartan PHA 07/07/24 Logged (Entresto 24-26 Mg 10:00 Sevelamer (Renagel) PHA 07/07/24 Logged 08:00 Oseltamivir 75mg PHA 07/07/24 Logged Capsule (Tamiflu 75mg 10:00 Oseltamivir 75mg PHA 07/06/24 Logged Capsule (Tamiflu 75mg 22:30 Azithromycin 500mg/ PHA 07/07/24 Logged 250ml (Zithromax 50 10:00 Albuterol Medneb PHA 07/06/24 Logged (Ventolin Medneb) 22:30 Basic Metabolic Panel LAB 07/07/24 Verified 04:00 Admit ADMIT 07/06/24 Transmitted 22:19 Renal DIET 07/07/24 Transmitted Standard(2gna,3gk,Lopho) Breakfast Hydrocodone-Acet PHA 07/06/24 Logged 5/325mg Tab ([place] 22:30 Temazepam (Restoril) PHA 07/06/24 Logged 22:30 Ondansetron Hcl PHA 07/06/24 Logged (Zofran) 22:30 Complete Blood Count LAB 07/07/24 Verified 04:00 Condition: Stable NELLIE 07/06/24 In Process 22:19 Acetaminophen Tablet PHA 07/06/24 Logged (Tylenol Tablet) 22:30 Bedrest With Bathroom NELLIE 07/06/24 In Process Privileg 22:19 *[facility] CONS 07/06/24 Transmitted -[place] 22:19 Date of Service: Jul 06, 2024 Billing Provider: KAVITHA NGUYỄN Common Visit Codes: [id number] INP/OBS CARE (HIGH) KAVITHA NGUYỄN Jul 06, 2024 23:36
[2024-07-06] MEDS: TEMAZEPAM 15 MG CAP PO PRN (23:41)
[2024-07-06] MEDS: OSELTAMIVIR 30 MG CAP PO ONE (23:41)
[2024-07-07] VITALS (13 sets, daily range): BP systolic 104–121; BP diastolic 26–71; PULSE 72–97; RESP 16–20; TEMP 98–99.7; O2SAT 93–98
[2024-07-07] MEDS: HYDROcodone-ACET 5/325MG TAB PO PRN (05:33)
[2024-07-07 05:57] LABS: Eosinophils # (auto) 0 10 ^3/uL (0-0.8); Eosinophils % (auto) 0.5 % (0.0-7.0); Lymphocytes # (auto) 0.4 10 ^3/uL (0.4-5.4); Nucleated Red Blood Cells % 0.1 %; Red Blood Cells 4.15 10^6/uL (4.5-5.90)
[2024-07-07 06:01] LABS: Basophils # (auto) 0.1 10 ^3/uL (0-0.2); Basophils % (auto) 2.5 % (0.0-2.0); Hematocrit 40.1 % (41.0-53.0); Hemoglobin 13.2 g/dL (13.5-17.5); Lymphocytes % (auto) 8.5 % (10.0-50.0); Mean Corpuscular Hemoglobin 31.9 pg (28.0-32.0); Mean Corpuscular Volume 96.8 fL (80.0-100.0); Monocytes # (auto) 0.6 10 ^3/uL (0-1.3); Monocytes % (auto) 10.7 % (0.0-12.0); Neutrophils % (auto) 77.8 % (37.0-80.0); Platelet Count (auto) 32 10^3/uL (140-450); Red Cell Distribution Width 19.1 % (11.8-14.3); White Blood Cell 5.2 10^3/uL (4.4-10.8)
[2024-07-07 06:13] LABS: Chloride 100 mmol/L (98-107)
[2024-07-07 06:14] LABS: Anion Gap 10 (5-15); Calcium 9.3 mg/dL (8.7-10.4); Carbon Dioxide 25 mmol/L (20-31)
[2024-07-07 06:19] LABS: BUN/Creatinine Ratio 5.9 (10.0-20.0); Glucose 103 mg/dL (74-106)
[2024-07-07 06:20] LABS: Blood Urea Nitrogen 54 mg/dL (9-23); Potassium 5.3 mmol/L (3.5-5.1); Sodium 135 mmol/L (136-145)
[2024-07-07] MEDS: SEVELAMER 800 MG TAB PO SCH ×2 (09:40→13:51)
[2024-07-07] MEDS: AZITHROMYCIN 500MG/ 250ML 250 ML IV SCH (09:41)
[2024-07-07] MEDS: ASPirin 81 mg TAB PO SCH (10:00)
[2024-07-07] MEDS: NIFEdipine ER 30 MG TAB PO SCH (10:00)
[2024-07-07] MEDS: SACUBITRIL-VALSARTAN 24mg/26mg TAB PO SCH (10:00)
[2024-07-07] MEDS: CLOPIDOGREL BISULFATE 75 MG TAB PO SCH (10:00)
--- NOTE | 2024-07-07 12:18 | DVHINCON2 ---
Date of service: Jul 07, 2024 Referring Physician Roman Lion, nurse practitioner Reason for Consultation End-stage renal disease to manage hemodialysis History of Present Illness Patient is a 59-year-old male with past medical history of end-stage renal disease on hemodialysis every Saturday and Saturday, hypertension, Congestive heart failure and CVA is admitted for flu-like symptoms. Nephrology is consulted to manage hemodialysis Past Medical History End-stage renal disease on hemodialysis, hypertension, Congestive heart failure, CVA Past Surgical History Left tunneled IJ hemodialysis catheter Right upper extremity AV fistula Allergies: Coded Allergies: Codeine (Verified Adverse Reaction, Unknown, 06/02/24) Home Meds Active Scripts Clopidogrel Bisulfate (Plavix) 75 Mg Tab, 1 TAB PO DAILY, #90 TAB 1 Refill Prov:JENAE MANCERA MD 06/03/24 Aspirin (Aspirin Adult Low Dose) 81 Mg Tab, 81 MG PO DAILY, #90 TAB Prov:JENAE MANCERA MD 06/03/24 Aspirin (Aspir-81) 81 Mg Tab, 1 TAB PO DAILY, #30 TAB 5 Refills Prov:PHUONG LOPEZ RESIDENT 08/06/23 Pantoprazole Sodium Sesquihydr (Protonix) 40 Mg Tab, 40 MG PO DAILY, #90 TAB Prov:MARTÍNEZ REINA MD 05/17/23 Atorvastatin Calcium (Lipitor) 40 Mg Tab, 1 TAB PO QPM, #90 TAB 1 Refill Prov:CASS SHEA MD 03/09/23 Clopidogrel Bisulfate (CLOPIDOGREL) 75 Mg Tab, 75 MG PO DAILY, #30 TAB 5 Refills Prov:CASS SHEA MD 03/09/23 Sevelamer Hydrochloride (Renagel) 800 Mg Tab, 1600 MG PO TIDWM, #180 TAB 6 Refills Prov:CASS SHEA MD 03/09/23 Reported Medications Ferric Citrate (Auryxia) 210 Mg Tab, 2 TAB PO TIDWM, TAB 05/28/24 Cinacalcet Hydrochloride (Sensipar) 30 Mg Tab, 2 TAB PO DAILY, TAB 05/15/23 Current Medications Current Medications Medications (Trade) Dose Ordered Sig/Cameron Route PRN Reason Start Time Stop Time Status Last Admin Aspirin 81 mg DAILY PO 07/07/24 10:00 Atorvastatin Calcium (Lipitor) 40 mg HS PO 07/07/24 22:00 Clopidogrel Bisulfate (Plavix) 75 mg DAILY PO 07/07/24 10:00 Nifedipine (Procardia Xl (Time-Release)) 60 mg DAILY PO 07/07/24 10:00 07/07/24 11:32 DC Sacubitril/ Valsartan (Entresto 24-26 Mg tab) 1 tab BID PO 07/07/24 10:00 07/07/24 11:32 DC Sevelamer HCl (Renagel) 800 mg TIDWM PO 07/07/24 08:00 07/07/24 11:35 DC 07/07/24 09:40 Oseltamivir Phosphate (Tamiflu 30MG Capsule) 30 mg HS PO 07/07/24 22:00 07/10/24 22:01 Azithromycin 250 ml @ 125 mls/hr DAILY IV 07/07/24 10:00 07/07/24 09:41 Albuterol (Ventolin Medneb) 2.5 mg Q6HPRN PRN NEB SHORTNESS OF BREATH 07/06/24 22:30 Acetaminophen/ Hydrocodone Bitart ([place] 5/325MG Tab) 1 tab Q4HP PRN PO MODERATE PAIN (4-6 PAIN SCALE) 07/06/24 22:30 07/07/24 05:33 Temazepam (Restoril) 15 mg QHSP PRN PO FOR INSOMNIA 07/06/24 22:30 07/06/24 23:41 Ondansetron HCl (Zofran) 4 mg Q4HP PRN IV NAUSEA / VOMITING 07/06/24 22:30 Acetaminophen (Tylenol Tablet) 650 mg Q6HP PRN PO PAIN SCALE 1-3 OR TEMP>100.4 07/06/24 22:30 Sevelamer HCl (Renagel) 1,600 mg TIDWM PO 07/07/24 12:00 UNV Family History: Colon cancer Diabetes mellitus G8 FATHER, Onset:Unknown FH: cancer G8 MOTHER G8 FATHER Hypertension G8 MOTHER Review of Systems All 12 item review of systems reviewed with the patient nonsignificant except what is mentioned in the history of present illness H&P Exam Vital Signs/I&O Vital Sign Date Time Temp Pulse Resp B/P (MAP) Pulse Ox O2 Delivery O2 Flow Rate FiO2 07/07/24 10:00 106/47 07/07/24 09:07 98 Room Air 0.0 07/07/24 09:07 21 07/07/24 09:00 98.8 85 20 98.8 Intake and Output 07/06/24 07/07/24 19:00 07:00 Intake Total 650 ml 118 ml Balance 650 ml 118 ml Intake Oral 118 ml IV Total 650 ml Physical Exam Patient appeared in no acute distress Lungs clear to auscultation bilaterally Cardiac exam regular rate and rhythm GI soft nontender normal Extremities no clubbing cyanosis or edema Neuro patient is awake and alert Labs/Diagnostic Data Labs/Diagnostic Data Laboratory Tests Test 07/07/24 05:21 07/06/24 19:42 07/06/24 17:11 07/06/24 17:10 Range/Units White Blood Count 5.2 # 4.4-10.8 10^3/uL Red Blood Count 4.15 L 4.5-5.90 10^6/uL Hemoglobin 13.2 L 13.5-17.5 g/dL Hematocrit 40.1 #L 41.0-53.0 % Mean Corpuscular Volume 96.8 80.0-100.0 fL Mean Corpuscular Hemoglobin 31.9 28.0-32.0 pg Mean Corpuscular Hemoglobin Concent 33.0 32.0-36.0 g/dL Red Cell Distribution Width 19.1 H 11.8-14.3 % Platelet Count 32 L 140-450 10^3/uL Mean Platelet Volume 10.1 6.9-10.8 fL Neutrophils (%) (Auto) 77.8 37.0-80.0 % Lymphocytes (%) (Auto) 8.5 L 10.0-50.0 % Monocytes (%) (Auto) 10.7 0.0-12.0 % Eosinophils (%) (Auto) 0.5 0.0-7.0 % Basophils (%) (Auto) 2.5 H 0.0-2.0 % Neutrophils # (Auto) 4.0 1.6-8.6 10 ^3/uL Lymphocytes # (Auto) 0.4 0.4-5.4 10 ^3/uL Monocytes # (Auto) 0.6 0-1.3 10 ^3/uL Eosinophils # (Auto) 0 0-0.8 10 ^3/uL Basophils # (Auto) 0.1 0-0.2 10 ^3/uL Nucleated Red Blood Cells 0.1 % Sodium Level 135 L 136-145 mmol/L Potassium Level 5.3 H 3.5-5.1 mmol/L Chloride Level 100 98-107 mmol/L Carbon Dioxide Level 25 20-31 mmol/L Anion Gap 10 5-15 Blood Urea Nitrogen 54 #H 9-23 mg/dL Creatinine 9.18 H 0.700-1.30 mg/dL Glomerular Filtration Rate Calc 6 >90 mL/min BUN/Creatinine Ratio 5.9 L 10.0-20.0 Serum Glucose 103 74-106 mg/dL Calcium Level 9.3 8.7-10.4 mg/dL Troponin I High Sensitivity 129 *H 61 *H </=54 ng/L Lactic Acid Level 2.9 *H 0.4-2.0 mmol/L Blood Gas Specimen Type Venous Blood Gas Sample Site Vbg - n/a Blood Gas Patient Temperature 37.0 Arterial Blood Date Drawn [id number] Gallo Test N/a Venous Blood pH 7.384 7.320-7.430 Venous Blood pCO2 at Patient Temp 42.5 38.0-54.0 mmHg Venous Blood pO2 at Patient Temp < 36.5 23.0-48.0 mmHg Venous Blood HCO3 24.8 22.0-29.0 mmol/L Venous Blood Base Excess -0.4 -2.0-3.0 mmol/L Blood Gas Liter Flow 5.00 Blood Gas Modality Nasal cannula FiO2 % 40.0 Specimen Drawn By compounding technician Test 07/06/24 15:30 07/06/24 15:16 Range/Units White Blood Count 9.0 4.4-10.8 10^3/uL Red Blood Count 4.85 4.5-5.90 10^6/uL Hemoglobin 15.0 13.5-17.5 g/dL Hematocrit 46.7 41.0-53.0 % Mean Corpuscular Volume 96.3 80.0-100.0 fL Mean Corpuscular Hemoglobin 31.0 28.0-32.0 pg Mean Corpuscular Hemoglobin Concent 32.2 32.0-36.0 g/dL Red Cell Distribution Width 19.1 H 11.8-14.3 % Platelet Count 35 L 140-450 10^3/uL Mean Platelet Volume 9.9 6.9-10.8 fL Neutrophils (%) (Auto) 91.4 H 37.0-80.0 % Lymphocytes (%) (Auto) 4.1 L 10.0-50.0 % Monocytes (%) (Auto) 4.3 0.0-12.0 % Eosinophils (%) (Auto) 0.0 0.0-7.0 % Basophils (%) (Auto) 0.2 0.0-2.0 % Neutrophils # (Auto) 8.2 1.6-8.6 10 ^3/uL Lymphocytes # (Auto) 0.4 0.4-5.4 10 ^3/uL Monocytes # (Auto) 0.4 0-1.3 10 ^3/uL Eosinophils # (Auto) 0 0-0.8 10 ^3/uL Basophils # (Auto) 0 0-0.2 10 ^3/uL Nucleated Red Blood Cells 0.1 % Platelet Estimate Decreased Prothrombin Time 13.6 H 9.3-11.8 sec Prothrombin Time INR 1.32 H 0.9-1.15 Activated Partial Thromboplast Time 37.7 H 24.5-34.5 SEC D-Dimer, Quantitative 15.77 H 0.0-0.49 mg/L FEU Sodium Level 137 136-145 mmol/L Potassium Level 4.6 3.5-5.1 mmol/L Chloride Level 100 98-107 mmol/L Carbon Dioxide Level 24 20-31 mmol/L Anion Gap 13 5-15 Blood Urea Nitrogen 38 H 9-23 mg/dL Creatinine 7.85 H 0.700-1.30 mg/dL Glomerular Filtration Rate Calc 7 >90 mL/min BUN/Creatinine Ratio 4.8 L 10.0-20.0 Serum Glucose 95 74-106 mg/dL Lactic Acid Level 3.6 *H 0.4-2.0 mmol/L Calcium Level 9.8 8.7-10.4 mg/dL Total Bilirubin 1.9 H 0.2-1.0 mg/dL Aspartate Amino Transferase (AST) 29 13-40 U/L Alanine Aminotransferase (ALT) 21 7-40 U/L Alkaline Phosphatase 204 H 46-116 U/L Troponin I High Sensitivity 46 </=54 ng/L Total Protein 6.6 5.7-8.2 g/dL Albumin 3.8 3.2-4.8 g/dL Lipase 58 H 12-53 U/L Influenza Type A Antigen Positive Negative Influenza Type B Antigen Positive Negative SARS-CoV-2 Antigen (Rapid) Negative NEGATIVE Assessment End-stage renal disease on hemodialysis Influenza a and B Congestive heart failure, ejection fraction 40% Sepsis Hypotension NSTEMI Recommendations Hemodialysis tomorrow Hold blood pressure medicine Tamiflu adjust dose for creatinine clearance Renal diet Cardiology consult We will continue to follow Patient seen and examined by myself. I discussed my plan of care with the patient and primary nurse at the bedside I would like to thank Roman for the consult, will follow Plan discussed with: Patient RICARDO ENCINAS MD Jul 07, 2024 12:18
--- NOTE | 2024-07-07 14:16 | DVHPN2 ---
Subjective Reports head and neck pain Reviewed: Care Plan, H&P, Labs, Medications Changes from previous H/P or p: No Changes General: Per HPI Objective Vitals Vital Signs Date Time Temp Pulse Resp B/P (MAP) Pulse Ox O2 Delivery O2 Flow Rate FiO2 07/07/24 10:00 98 Nasal Cannula* 4 36 07/07/24 10:00 106/47 07/07/24 09:00 98.8 85 20 98.8 Intake/Output Intake and Output 07/07/24 07:00 Intake Total 768 ml Balance 768 ml Intake Oral 118 ml IV Total 650 ml General Appearance: Alert, Oriented X3, Cooperative HEENT: Atraumatic, PERRLA Neck: Other (Neck pain with limited range of motion) Cardiovascular: Normal S1, Normal S2 Genitourinary: No Apparent Abnormalities Musculoskeletal: Normal sensory function, Normal motor function Neuro: Normal gait, Normal speech Psych/Mental Status: Mental status NL, Mood NL Medications Current Medications Medications Dose Ordered Sig/Cameron Route Start Time Stop Time Status Last Admin Dose Admin Aspirin 81 mg DAILY PO 07/07/24 10:00 Atorvastatin Calcium 40 mg HS PO 07/07/24 22:00 Clopidogrel Bisulfate 75 mg DAILY PO 07/07/24 10:00 Oseltamivir Phosphate 30 mg HS PO 07/07/24 22:00 07/10/24 22:01 Azithromycin 250 ml @ 125 mls/hr DAILY IV 07/07/24 10:00 07/07/24 09:41 125 MLS/HR Albuterol 2.5 mg Q6HPRN PRN NEB 07/06/24 22:30 Acetaminophen/ Hydrocodone Bitart 1 tab Q4HP PRN PO 07/06/24 22:30 07/07/24 05:33 1 TAB Temazepam 15 mg QHSP PRN PO 07/06/24 22:30 07/06/24 23:41 15 MG Ondansetron HCl 4 mg Q4HP PRN IV 07/06/24 22:30 Acetaminophen 650 mg Q6HP PRN PO 07/06/24 22:30 Sevelamer HCl 1,600 mg TIDWM PO 07/07/24 12:00 07/07/24 13:51 1,600 MG Laboratory Results Laboratory Tests 07/07/24 05:21 Chemistry Test 07/06/24 15:30 07/07/24 05:21 Albumin 3.8 g/dL (3.2-4.8) Calcium Level 9.8 mg/dL (8.7-10.4) 9.3 mg/dL (8.7-10.4) Total Protein 6.6 g/dL (5.7-8.2) Coagulation Test 07/06/24 15:30 Prothrombin Time 13.6 sec (9.3-11.8) H Prothrombin Time INR 1.32 (0.9-1.15) H Activated Partial Thromboplast Time 37.7 SEC (24.5-34.5) H D-Dimer, Quantitative 15.77 mg/L FEU (0.0-0.49) H Lipid panel Test 07/06/24 15:30 Lipase 58 U/L (12-53) H LFT Test 07/06/24 15:30 Alanine Aminotransferase (ALT) 21 U/L (7-40) Alkaline Phosphatase 204 U/L (46-116) H Aspartate Amino Transferase (AST) 29 U/L (13-40) Total Bilirubin 1.9 mg/dL (0.2-1.0) H Blood Gas Results Test 07/06/24 17:10 FiO2 % 40.0 Labs and/or images reviewed: Labs reviewed by me, Image(s) reviewed by me Assessment/Plan Assessment/Plan Impression: -syncope with collapse -NSTEMI, probably type 2 -end-stage renal disease with hemodialysis -primary hypertension -anemia of chronic disease -influenza a and B -rib fracture, left 4 through 7 -pulmonary embolism ruled out Plan: -assess patient who complains of neck pain and head pain. We will perform CT scan of the head and neck -continue Tamiflu -nephrology consultation: Plans for HD tomorrow -antihypertensives -repeat troponin level in a.m.. If trending up, consider cardiology consultation -pain management Total time spent with patient discussing and formulating plan of care: 35 minutes. This medical document was created using an electronic medical record system with [employer] dictation system. Although this document has been carefully reviewed, there may still be some phonetic and typographical errors. These areas are purely typographical due to imperfections of the software programs, and do not reflect any compromise in the patient's medical care. Plan discussed with: Patient, Other (RN) My Orders Orders - JOY ALVA ENGINEER THIRD ASSISTANT Procedure Category Date Status Time Basic Metabolic Panel LAB 07/08/24 Verified 04:[address] 07/07/24 Logged 13:[address] 07/07/24 Logged Contrast 13:46 Date of Service: Jul 07, 2024 Billing Provider: JOY ALVA NP Common Visit Codes: [id number] INP/OBS CARE(HIGH) JOY ALVA NP Jul 07, 2024 14:16
--- NOTE | 2024-07-07 14:56 | DVH ---
EXAM: CT HEAD WITHOUT CONTRAST HISTORY: mechanical fall. Head and neck pain COMPARISON: CT STROKE CTH on DOS: 05/27/24, CT HEAD WITHOUT CONTRAST on DOS: 08/01/23 TECHNIQUE: Axial images of the head were obtained and reformatted in coronal and sagittal planes. All CT scans at this medical facility are performed using dose modulation techniques as appropriate t o a performed exam including the following: Automated exposure control was utilized; adjustment of th e MA and/or KV according to patient size; and use of iterative reconstruction technique. CT Dose: CTDI volume is 23 mGy. Dose-length product is 1725 mGy*cm FINDINGS: There are mildly hyperdense subdural fluid collections overlying the bilateral frontal parietal conve xities. The collection on the right measures up to 8 mm in the collection on the left measures up to 6.5 mm. There is mild adjacent sulcal effacement. There is chronic infarct in the anteromedial right frontal lobe. There is also likely small chronic infarct in the inferior left cerebellum. The ventric les are stable in size with prominent appearing lateral and 3rd ventricles. The 4th ventricle appears within normal limits. There is opacification of the left frontal and ethmoid sinuses. There is small amount of fluid in the right mastoid air cells. The calvarium is intact. IMPRESSION: 1. There are mildly hyperdense subdural fluid collections overlying the bilateral frontoparietal conv exities , slightly larger on the right measuring up to 8 mm in maximum diameter. There is mild adjace nt sulcal effacement. 2. The ventricles are stable in size with prominent appearing lateral and 3rd ventricles. 3. Stable chronic infarct in the anteromedial right frontal lobe. HS:Y
--- NOTE | 2024-07-07 15:02 | DVH ---
EXAM: CT CERVICAL WITHOUT CONTRAST INDICATION: Mechanical fall. Head and neck pain EXAM DATE: 07/07/2024 02:22 PM COMPARISON: CT HEAD WITHOUT CONTRAST on DOS: 08/01/23 TECHNIQUE: Multiple axial CT images of the cervical spine were obtained using bone algorithm. Axial a nd coronal reformatting was done. Bone and soft tissue windows were reviewed. Radiation Dose Information: CT Dose: CTDI volume is 22.74 mGy. Dose-length product is 1725.68 mGy*cm FINDINGS: The cervical alignment is intact. No acute cervical spine fracture is identified. The vertebral body heights are intact. No suspicious osseous lesions are identified. Bony spondylosis and degenerative disc changes worse at C6-7. No significant degenerative changes are identified. There is no prevertebral soft tissue swelling. IMPRESSION: 1. No evidence of acute cervical spine fracture or traumatic malalignment. 2. Bony spondylosis and degenerative disc changes worse at C6-7. All CT scans at this medical facility are performed using dose modulation techniques as appropriate t o a performed exam including the following: Automated exposure control was utilized; adjustment of th e MA and/or KV according to patient size; and use of iterative reconstruction technique.
[2024-07-07] MEDS: ATORVASTATIN 20 MG TAB PO SCH (21:01)
[2024-07-07] MEDS: OSELTAMIVIR 30 MG CAP PO SCH (21:01)
[2024-07-08] VITALS (10 sets, daily range): BP systolic 100–127; BP diastolic 28–68; PULSE 77–96; RESP 16–19; TEMP 97.5–100.5; O2SAT 93–99
[2024-07-08 06:10] LABS: Anion Gap 12 (5-15); Carbon Dioxide 23 mmol/L (20-31); Chloride 99 mmol/L (98-107)
[2024-07-08 06:11] LABS: Calcium 9.4 mg/dL (8.7-10.4)
[2024-07-08 06:16] LABS: BUN/Creatinine Ratio 6.7 (10.0-20.0); Glucose 90 mg/dL (74-106)
[2024-07-08 06:22] LABS: Blood Urea Nitrogen 74 mg/dL (9-23); Potassium 5.4 mmol/L (3.5-5.1); Sodium 134 mmol/L (136-145)
[2024-07-08] MEDS ORDERED: SODIUM CHL 0.9% 1000 ML BAG XX ONE ×2 (07:00→18:15)
--- NOTE | 2024-07-08 10:30 | DVHPN2 ---
Subjective Denies any symptoms. Reviewed: Care Plan, H&P, Labs, Medications Changes from previous H/P or p: Changes General: Per HPI Objective Vitals Vital Signs Date Time Temp Pulse Resp B/P (MAP) Pulse Ox O2 Delivery O2 Flow Rate FiO2 07/08/24 08:50 98.2 79 18 102/36 (58) 93 98.2 07/08/24 08:00 Room Air* 0 21 Intake/Output Intake and Output 07/08/24 07:00 Intake Total 1530 ml Output Total 750 ml Balance 780 ml Intake Oral 1280 ml IV Total 250 ml Output Urine Total 750 ml General Appearance: Alert, Oriented X3, Cooperative HEENT: Atraumatic, PERRLA Neck: Other (Neck pain with limited range of motion) Cardiovascular: Normal S1, Normal S2 Genitourinary: No Apparent Abnormalities Musculoskeletal: Normal sensory function, Normal motor function Neuro: Normal gait, Normal speech Skin: Dry, Intact Psych/Mental Status: Mental status NL, Mood NL Medications Current Medications Medications Dose Ordered Sig/Cameron Route Start Time Stop Time Status Last Admin Dose Admin Aspirin 81 mg DAILY PO 07/07/24 10:00 Atorvastatin Calcium 40 mg HS PO 07/07/24 22:00 07/07/24 21:01 40 MG Clopidogrel Bisulfate 75 mg DAILY PO 07/07/24 10:00 Oseltamivir Phosphate 30 mg HS PO 07/07/24 22:00 07/10/24 22:01 07/07/24 21:01 30 MG Azithromycin 250 ml @ 125 mls/hr DAILY IV 07/07/24 10:00 07/08/24 09:39 125 MLS/HR Albuterol 2.5 mg Q6HPRN PRN NEB 07/06/24 22:30 Acetaminophen/ Hydrocodone Bitart 1 tab Q4HP PRN PO 07/06/24 22:30 07/07/24 22:48 1 TAB Temazepam 15 mg QHSP PRN PO 07/06/24 22:30 07/06/24 23:41 15 MG Ondansetron HCl 4 mg Q4HP PRN IV 07/06/24 22:30 Acetaminophen 650 mg Q6HP PRN PO 07/06/24 22:30 Sevelamer HCl 1,600 mg TIDWM PO 07/07/24 12:00 07/08/24 08:00 1,600 MG Laboratory Results Laboratory Tests 07/07/24 05:21 07/08/24 05:27 Chemistry Test 07/08/24 05:27 Calcium Level 9.4 mg/dL (8.7-10.4) Microbiology Microbiology Date/Time Source Procedure Growth Status 07/06/24 15:30 Blood Blood Culture - Preliminary NO GROWTH AFTER 24 HOURS OF INCUBATION. Resulted Labs and/or images reviewed: Labs reviewed by me, Image(s) reviewed by me Assessment/Plan Assessment/Plan Impression: -syncope with collapse -NSTEMI, probably type 2 -end-stage renal disease with hemodialysis -primary hypertension -anemia of chronic disease -influenza a and B -rib fracture, left 4 through 7 -pulmonary embolism ruled out Plan: -events: CT scan of the head and neck reviewed. Questionable normal pressure hydrocephalus. Noted frontal parietal subdural fluid. Long discussion made with the patient's daughter who was bedside. Apparently, the patient does have unsteady gait, shuffling gait, and has been in and out of the hospital for different reasons attributed to questionable pneumonia and difficulty breathing. She states that he has been receiving physical therapy without any improvement with his ambulation. Review of the patient's CT scan was discussed with the daughter. She was agreeable to wait for Neurology for further recommendations. -nephrology consultation: Plans for HD today -troponin trending up slightly, cardiology consultation placed. -continue Tamiflu -DVT study to lower extremities -antihypertensives -pain management Total time spent with patient discussing and formulating plan of care: 35 minutes. Total time spent with patient and family regarding advance care plannin minutes. This medical document was created using an electronic medical record system with [employer] dictation system. Although this document has been carefully reviewed, there may still be some phonetic and typographical errors. These areas are purely typographical due to imperfections of the software programs, and do not reflect any compromise in the patient's medical care. Plan discussed with: Patient, Daughter, Other (RN) My Orders Orders - JOY ALVA NP Procedure Category Date Status Time Head Without Contrast CT 07/07/24 Resulted 13:[address] 07/07/24 Resulted Contrast 13:46 * Cardiology Consult CONS 07/08/24 Transmitted 08:38 * Neurology Consult CONS 07/08/24 Transmitted 08:40 Date of Service: Jul 08, 2024 Billing Provider: JOY ALVA NP Common Visit Codes: 45016-[id number] INP/OBS CARE(HIGH) Secondary Visit Codes: 75885-[id number] CARE PLAN 30 MINUTES JOY ALVA NP Jul 08, 2024 10:29
--- NOTE | 2024-07-08 11:30 | DVH ---
Bilateral lower extremity venous duplex Clinical History: elevated d dimer Comparison: US BILAT LOWER DVT on DOS: 08/02/23 Technique: Duplex Doppler evaluation of the deep venous systems of both lower extremities from the common femora l veins to the popliteal veins including color Doppler and spectral/pulsed waveform analysis was perf ormed. Findings: RIGHT SIDE: The common femoral vein demonstrates appropriate compressibility and waveform variability. There is compressibility/patency of the great saphenous vein at the proximal thigh. The femoral vein demonstrates appropriate compressibility and waveform variability. The deep femoral vein demonstrates appropriate compressibility and waveform variability. The popliteal vein demonstrates appropriate compressibility and waveform variability. There is normal compressibility at the tibioperoneal trunk. LEFT SIDE: The common femoral vein demonstrates appropriate compressibility and waveform variability. There is compressibility/patency of the great saphenous vein at the proximal thigh. The femoral vein demonstrates appropriate compressibility and waveform variability. The deep femoral vein demonstrates appropriate compressibility and waveform variability. The popliteal vein demonstrates appropriate compressibility and waveform variability. There is normal compressibility at the tibioperoneal trunk. Impression: No right or left femoropopliteal venous thrombosis. Chronic DVT seen in the right femoral vein. No acute DVT.
--- NOTE | 2024-07-08 11:57 | DVHPN2 ---
Progress Note Date Seen: Jul 08, 2024 Medical Necessity Reason Pt with a Central, PICC or Fol: No Subjective Patient reports: No new complaints Review of Systems: RESPIRATORY:Abnormal Other Systems: Patient seen and examined by myself today in follow-up Patient examined hemodialysis, blood pressure stable Objective vital signs Vital Sign Date Time Temp Pulse Resp B/P (MAP) Pulse Ox O2 Delivery O2 Flow Rate FiO2 07/08/24 10:42 99 Nasal Cannula 2.0 07/08/24 10:42 28 07/08/24 08:50 98.2 79 18 102/36 (58) 98.2 Total Intake and Output 07/07/24 07/07/24 07/08/24 15:00 23:00 07:00 Intake Total 1230 ml 300 ml Output Total 750 ml Balance 480 ml 300 ml medications Current Medications Medications Dose Ordered Sig/Cameron Route Start Time Stop Time Status Last Admin Dose Admin Aspirin 81 mg DAILY PO 07/07/24 10:00 Atorvastatin Calcium 40 mg HS PO 07/07/24 22:00 07/07/24 21:01 40 MG Clopidogrel Bisulfate 75 mg DAILY PO 07/07/24 10:00 Oseltamivir Phosphate 30 mg HS PO 07/07/24 22:00 07/10/24 22:01 07/07/24 21:01 30 MG Azithromycin 250 ml @ 125 mls/hr DAILY IV 07/07/24 10:00 07/08/24 09:39 125 MLS/HR Albuterol 2.5 mg Q6HPRN PRN NEB 07/06/24 22:30 Acetaminophen/ Hydrocodone Bitart 1 tab Q4HP PRN PO 07/06/24 22:30 07/07/24 22:48 1 TAB Temazepam 15 mg QHSP PRN PO 07/06/24 22:30 07/06/24 23:41 15 MG Ondansetron HCl 4 mg Q4HP PRN IV 07/06/24 22:30 Acetaminophen 650 mg Q6HP PRN PO 07/06/24 22:30 Sevelamer HCl 1,600 mg TIDWM PO 07/07/24 12:00 07/08/24 08:00 1,600 MG Examination: LUNGS:Normal (Examined hemodialysis, blood pressure stable), CVS:Normal, MSK:Abnormal laboratory and microbiology Laboratory Tests 07/08/24 05:27 07/07/24 05:21 Test 1/22/25 05:27 Range/Units Serum Glucose 90 74-106 mg/dL Microbiology Date/Time Source Procedure Growth Status 07/06/24 15:30 Blood Blood Culture - Preliminary NO GROWTH AFTER 24 HOURS OF INCUBATION. Resulted Problem List/Assessment/Plan Problem List/Assessment/Plan End-stage renal disease on hemodialysis Influenza a and B Congestive heart failure, ejection fraction 40% Sepsis Hyperkalemia Hypotension NSTEMI Recommendations Continue with UF 2-3 L as tolerated Hold blood pressure medicine Tamiflu adjust dose for creatinine clearance Renal diet Lokelma 10 g p.o. today Cardiology consult We will continue to follow Plan discussed with: Patient My Orders My Orders Orders - RICARDO ENCINAS MD Procedure Category Date Status Time Hemodialysis Orders ORDERS 07/08/24 Transmitted 07:00 Dialysis Nursing NELLIE 07/08/24 In Process Message 07:00 Document Fluid Input NELLIE 07/08/24 In Process And Outpu 07:00 RICARDO ENCINAS MD Jul 08, 2024 11:57
[2024-07-08] MEDS: SODIUM ZIRCONIUM CYCL 10 GM PAK PO ONE (12:00)
--- NOTE | 2024-07-08 12:45 | DVHINCON2 ---
Date Seen: Jul 08, 2024 Referring Physician DILLON Mata Reason for Consultation NSTEMI History of Present Illness This is a 59-year-old man who presented to the emergency room via EMS with a chief complaint of generalized weakness. The patient reports she was undergoing hemodialysis treatment when he experienced generalized weakness associated with flu-like symptoms including chills, pyrexia, and mild shortness of breath. Denies chest pain, palpitations, diaphoresis, or syncopal events. He underwent a 12 lead electrocardiogram revealing a sinus rhythm with ST segment depression to inferior leads nonspecific repolarization changes. Troponin levels are trending up with latest in the 190s ng/L prompting cardiology evaluation. Significant past medical history includes recent acute embolic CVA with large intra-atrial septal aneurysm and associated PFO on DAPT, congestive heart failure with reduced LVEF, hypertension, hyperlipidemia, polycystic kidney disease now with end-stage renal disease on hemodialysis, CVA x4 with left-sided deficit, previous brain aneurysm and chronic subarachnoid hemorrhage in 2001,, left eye blindness, thyroid disease, and history of tobacco use. Past Medical History Past medical history reviewed. No other significant than mentioned above. Past Surgical History Right arm fistula for dialysis Left eye surgery Family History: Colon cancer Diabetes mellitus G8 FATHER, Onset:Unknown FH: cancer G8 MOTHER G8 FATHER Hypertension G8 MOTHER Family History Family history reviewed. Social History Denies use of alcohol or illicit drugs. Patient has a five pack-year history, quit smoking approximately 10 years ago. Allergies: Coded Allergies: Codeine (Verified Adverse Reaction, Unknown, 06/02/24) Home Meds Active Scripts Aspirin (Aspir-81) 81 Mg Tab, 1 TAB PO DAILY, #30 TAB 5 Refills Prov:PHUONG LOPEZ 08/06/23 Atorvastatin Calcium (Lipitor) 40 Mg Tab, 1 TAB PO QPM, #90 TAB 1 Refill Prov:CASS SHEA MD 03/09/23 Clopidogrel Bisulfate (CLOPIDOGREL) 75 Mg Tab, 75 MG PO DAILY, #30 TAB 5 Refills Prov:CASS SHEA MD 03/09/23 Reported Medications Sevelamer Carbonate (Sevelamer Carbonate) 800 Mg Tab, 3 TAB PO TIDWM for 30 Days, #270 07/08/24 Omeprazole (Omeprazole Dr) 20 Mg Cap, 1 CAP PO DAILY for 30 Days, #30 07/08/24 Ferric Citrate (Auryxia) 210 Mg Tab, 2 TAB PO TIDWM, TAB 05/28/24 Cinacalcet Hydrochloride (Sensipar) 30 Mg Tab, 2 TAB PO DAILY, TAB 05/15/23 Home Meds Home medications reviewed. Current Medications Current Medications Medications (Trade) Dose Ordered Sig/Cameron Route PRN Reason Start Time Stop Time Status Last Admin Atorvastatin Calcium (Lipitor) 40 mg HS PO 07/07/24 22:00 07/07/24 21:01 Oseltamivir Phosphate (Tamiflu 30MG Capsule) 30 mg HS PO 07/07/24 22:00 07/10/24 22:01 07/07/24 21:01 Review of Systems Constitutional: Generalized weakness, fever, chills Ears, Nose, & Throat: No symptom reported Eyes: No symptom reported Neurological: No symptoms reported Pulmonary/Respiratory: SOB Cardiovascular: No symptom reported Gastrointestinal: No symptom reported Genitourinary: No symptom reported Musculoskeletal: No symptom reported Skin: No symptom reported Psychiatric: No symptom reported Endocrine: No symptom reported Hemotologic/Lymphatic: No symptom reported Vital Signs Vital Signs Date Time Temp Pulse Resp B/P (MAP) Pulse Ox O2 Delivery O2 Flow Rate FiO2 07/08/24 10:42 99 Nasal Cannula 2.0 07/08/24 10:42 28 07/08/24 08:50 98.2 79 18 102/36 (58) 98.2 Physical Exam General Appearance: Cooperative. Non HDL. In no acute distress Head Exam: Normal inspection Neck Exam: Normal inspection. Non-tender. Normal alignment Pulmonary/Respiratory: Chest non-tender. Diminished bilateral breath sounds Cardiovascular/Chest: Regular rate and rhythm. S1, S2. Sinus rhythm with ST segment depression to inferior leads. Peripheral Pulses: 2+ Radial (R). 2+ Radial (L). 2+ Pedal (R). 2+ Pedal (L) Abdominal Exam: Normal bowel sounds. Soft. Nontender. No hepatospenomegaly. No masses Ankle Exam: Negative ankle edema Lower extremities: Negative lower extremity edema Neuro/Mental Status: A&O x4. Coherent Thoughts/Psych: Normal thought pattern. Appropriate mood and affect. Good judgement and insight Appearance: In no acute distress Skin Exam: Normal inspection. Normal color. Warm. Dry Labs/Diagnostic Data Labs Test 07/08/24 05:27 07/07/24 05:21 07/06/24 17:11 07/06/24 17:10 Range/Units Sodium Level 134 L 136-145 mmol/L Potassium Level 5.4 H 3.5-5.1 mmol/L Chloride Level 99 98-107 mmol/L Carbon Dioxide Level 23 20-31 mmol/L Anion Gap 12 5-15 Blood Urea Nitrogen 74 #H 9-23 mg/dL Creatinine 10.97 *H 0.700-1.30 mg/dL Glomerular Filtration Rate Calc 5 >90 mL/min BUN/Creatinine Ratio 6.7 L 10.0-20.0 Serum Glucose 90 74-106 mg/dL Calcium Level 9.4 8.7-10.4 mg/dL Troponin I High Sensitivity 193 *H </=54 ng/L White Blood Count 5.2 # 4.4-10.8 10^3/uL Red Blood Count 4.15 L 4.5-5.90 10^6/uL Hemoglobin 13.2 L 13.5-17.5 g/dL Hematocrit 40.1 #L 41.0-53.0 % Mean Corpuscular Volume 96.8 80.0-100.0 fL Mean Corpuscular Hemoglobin 31.9 28.0-32.0 pg Mean Corpuscular Hemoglobin Concent 33.0 32.0-36.0 g/dL Red Cell Distribution Width 19.1 H 11.8-14.3 % Platelet Count 32 L 140-450 10^3/uL Mean Platelet Volume 10.1 6.9-10.8 fL Neutrophils (%) (Auto) 77.8 37.0-80.0 % Lymphocytes (%) (Auto) 8.5 L 10.0-50.0 % Monocytes (%) (Auto) 10.7 0.0-12.0 % Eosinophils (%) (Auto) 0.5 0.0-7.0 % Basophils (%) (Auto) 2.5 H 0.0-2.0 % Neutrophils # (Auto) 4.0 1.6-8.6 10 ^3/uL Lymphocytes # (Auto) 0.4 0.4-5.4 10 ^3/uL Monocytes # (Auto) 0.6 0-1.3 10 ^3/uL Eosinophils # (Auto) 0 0-0.8 10 ^3/uL Basophils # (Auto) 0.1 0-0.2 10 ^3/uL Nucleated Red Blood Cells 0.1 % Lactic Acid Level 2.9 *H 0.4-2.0 mmol/L Blood Gas Specimen Type Venous Blood Gas Sample Site Vbg - n/a Blood Gas Patient Temperature 37.0 Arterial Blood Date Drawn [id number] Gallo Test N/a Venous Blood pH 7.384 7.320-7.430 Venous Blood pCO2 at Patient Temp 42.5 38.0-54.0 mmHg Venous Blood pO2 at Patient Temp < 36.5 23.0-48.0 mmHg Venous Blood HCO3 24.8 22.0-29.0 mmol/L Venous Blood Base Excess -0.4 -2.0-3.0 mmol/L Blood Gas Liter Flow 5.00 Blood Gas Modality Nasal cannula FiO2 % 40.0 Specimen Drawn By data collection technician Test 07/06/24 15:30 07/06/24 15:16 Range/Units Platelet Estimate Decreased Prothrombin Time 13.6 H 9.3-11.8 sec Prothrombin Time INR 1.32 H 0.9-1.15 Activated Partial Thromboplast Time 37.7 H 24.5-34.5 SEC D-Dimer, Quantitative 15.77 H 0.0-0.49 mg/L FEU Total Bilirubin 1.9 H 0.2-1.0 mg/dL Aspartate Amino Transferase (AST) 29 13-40 U/L Alanine Aminotransferase (ALT) 21 7-40 U/L Alkaline Phosphatase 204 H 46-116 U/L Total Protein 6.6 5.7-8.2 g/dL Albumin 3.8 3.2-4.8 g/dL Lipase 58 H 12-53 U/L Influenza Type A Antigen Positive Negative Influenza Type B Antigen Positive Negative SARS-CoV-2 Antigen (Rapid) Negative NEGATIVE Microbiology Date/Time Source Procedure Growth Status 07/06/24 15:30 Blood Blood Culture - Preliminary NO GROWTH AFTER 24 HOURS OF INCUBATION. Resulted Assessment Influenza Type A &B NSTEMI, likely type II secondary to above Intra-atrial septal aneurysm and associated PFO Rule out cardiac arrhythmias Chronic compensated HFrEF Chronic DVT in the right femoral vein Cerebrovascular accident X4 with left-sided hemiparesis (on Plavix and ASA) End-stage renal disease on hemodialysis Hypertension Hyperlipidemia Thyroid disease History of tobacco use Thrombocytopenia Plan/Recommendation (Dr. Guillaume) The patient had a recent admission secondary to an acute CVA for which he und erwent a transesophageal echocardiogram revealing a large intra-atrial septal aneurysm with an associated PFO and a RoPE Score 4 points placing him at a 38% chance that stroke is due to PFO and 12% risk of 2-year recurrence of stroke/TIA. At that time, he was recommended DAPT and to continue with an outpatient event monitor for a minimum of two weeks to rule out cardiac arrhythmias. He also underwent a transthoracic echocardiogram revealing an LVEF of 40% and recommended GDMT for CHF as renal function permits. Ischemic work-up with a nuclear stress test was also recommended as outpatient. Given chronic DVT and PFO we recommend initiation of Eliquis therapy and single-antiplatelet therapy with ASA with optimal Platelet levels. We will sign off at this time. Kindly call with any questions or concerns. Thank you for allowing us to care for this patient. This medical document was created using an electronic medical record system with voice recognition software and computerized dictation system. Although this document has been carefully reviewed, there might still be some phonetic and typographical errors. Occasional wrong-word or ``sound-alike substitutions may have occurred due to the inherent limitations of voice recognition software. These areas are purely typographical due to imperfections of the software programs and do not reflect any compromise in the patient's medical care. Please read the chart carefully and recognize, using context, where these substitutions have occurred. Plan discussed with: Patient, Other NYHA Physical activity limitations: NA Date of Service: Jul 08, 2024 Billing Provider: NORMAN ECKERT Cardiology Common Codes: 30243-[id number] INP/OBS CARE (High) NORMAN ECKERT Jul 08, 2024 12:45
[2024-07-08] MEDS: ACETAMINOPHEN 325 MG TAB PO PRN (20:13)
--- NOTE | 2024-07-08 21:18 | DVHINCON2 ---
Date of service: Jul 08, 2024 Referring Physician Cosmo Reason for Consultation Subdural fluid History of Present Illness Mr. Gamez is a 59 years old right-handed gentleman with a history of dyslipidemia, coronary artery disease, heart attack, AAA, progressive kidney disease, brain aneurysm/SAH, stroke with residual left-sided weakness, hyperparathyroidism, GI bleeding, end-stage kidney failure on hemodialysis, he was brought to the hospital on 07/06/24 with a chief complaint of fever. At this time, he was alert and oriented to person and place, he knows , he said it is July, he was socially appropriate, not a good historian. I saw him on 08/02/2023 for stroke (MRI: Negative), 05/31/2024 for TIA/right- sided weakness (MRI: Positive for acute stroke) He tells me he came to the hospital because he did not feel good, he had fever, and the influenza He denies a history of headache, new focal weakness numbness, his CT brain scan showed subacute bilateral subdural hematoma. On physical examination, there is right arm weakness He could not extend the left elbow, his daughter reported previously, due to the stroke in 2019 Hepatitis panel, 05/28/2024: Hep C Ab: Positive WBC/HB/PLT/MCV, 05/27/2024, 9.1/80.8/73/98.4, 07/07/2024: 5.2/13.2/32/96.8 PT/INR/PTT, 05/27/2024: 12.5/1.19/33.5, 07/06/2024: 13.6/1.32/37.7 BUN/CR, 05/27/2024: 27/6.34, 07/08/2024: 74/10.97 GFR, 05/27/2024: 10, 07/08/24: 5 Lactic acid, 07/06/2024: 2.9 TBI/AST/ALT/AP, 05/27/2024: 1.5/29/29/320 TG/CHO L/LDL/HDL, 08/01/2023: 119/<50/13/<5, 05/31/2024: 78/84/27/40 Extremity venous study, 07/08/2024: No right or left femoropopliteal venous thrombosis. Chronic DVT seen in the right femoral vein. No acute DVT. BERTHA, 06/02/2024: 1. Large intra-atrial septal aneurysm, with a positive intra-atrial bubble study indicating the presence of pedal valve. 2. There is a grade 2 atheromatous seen in the aorta, which likely indicates also high-risk atherosclerotic arterial embolic disease. 3. There is mild sclerosis and thickening of the aortic valve without evidence of stenosis but mild regurgitation. 4. Patient we will need assessment for other possible causes such as arrhythmia in addition to the presence of PFO given history of recurrent stroke Carotid Doppler, 05/31/2024: [place] CT head, 08/01/2023: No evidence of acute intracranial abnormality. Old right MCA infarct. Left paranasal sinus disease CT head, 05/27/2024, 1. Cystic encephalomalacia along the anteromedial right frontal lobe May relate to chronic infarct. There is ex vacuo dilatation of the right lateral ventricle. 2. There are confluence hypodense changes in the right supratentorial periventricular white matter which May relate to gliosis or chronic microvascular ischemic changes. 3. Likely small chronic infarct in the right basal ganglia CT head, 07/07/2024: 1. There are mildly hyperdense subdural fluid collections overlying the bilateral frontoparietal convexities , slightly larger on the right measuring up to 8 mm in maximum diameter. There is mild adjacent sulcal effacement. 2. The ventricles are stable in size with prominent appearing lateral and 3rd ventricles. 3. Stable chronic infarct in the anteromedial right frontal lobe MRI head, 08/03/2023: No acute infarct, intracranial hemorrhage, mass effect, or hydrocephalus (I see right frontal chronic stroke with associated ventricular dilatation) MRI head, 05/31/2024: 1. Areas of acute or subacute ischemia in both frontal lobes, left greater than right as described above. 2. Additional nonacute findings as described above. 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 Daughter of brain aneurysm Social History He was a tobacco smoker, no history of alcohol recreational substance abuse Allergies: Coded Allergies: Codeine (Verified Adverse Reaction, Unknown, 06/02/24) Home Meds Active Scripts Aspirin (Aspir-81) 81 Mg Tab, 1 TAB PO DAILY, #30 TAB 5 Refills Prov:PHUONG LOPEZ RESIDENT 08/06/23 Atorvastatin Calcium (Lipitor) 40 Mg Tab, 1 TAB PO QPM, #90 TAB 1 Refill Prov:CASS SHEA MD 03/09/23 Clopidogrel Bisulfate (CLOPIDOGREL) 75 Mg Tab, 75 MG PO DAILY, #30 TAB 5 Refills Prov:CASS SHEA MD 03/09/23 Reported Medications Sevelamer Carbonate (Sevelamer Carbonate) 800 Mg Tab, 3 TAB PO TIDWM for 30 Days, #270 07/08/24 Omeprazole (Omep[address] Dr) 20 Mg Cap, 1 CAP PO DAILY for 30 Days, #30 07/08/24 Ferric Citrate (Auryxia) 210 Mg Tab, 2 TAB PO TIDWM, TAB 05/28/24 Cinacalcet Hydrochloride (Sensipar) 30 Mg Tab, 2 TAB PO DAILY, TAB 05/15/23 Current Medications Current Medications Medications (Trade) Dose Ordered Sig/Cameron Route PRN Reason Start Time Stop Time Status Last Admin Atorvastatin Calcium (Lipitor) 40 mg HS PO 07/07/24 22:00 07/07/24 21:01 Oseltamivir Phosphate (Tamiflu 30MG Capsule) 30 mg HS PO 07/07/24 22:00 07/08/24 16:35 DC 07/07/24 21:01 Oseltamivir Phosphate (Tamiflu 30MG Capsule) 30 mg POSTDI PO 07/08/24 22:00 07/10/24 22:01 Review of Systems As above, the other systems are negative Vital Signs Vital Signs Date Time Temp Pulse Resp B/P (MAP) Pulse Ox O2 Delivery O2 Flow Rate FiO2 07/08/24 20:13 100.5 07/08/24 16:03 83 16 110/29 (56) 98 07/08/24 10:42 Nasal Cannula 2.0 07/08/24 10:42 28 Physical Exam GENERAL EXAM: General: the patient is well developed and nourished. No acute distress. HEENT: Normocephalic, neck is supple, no carotid bruits. No mass RESPIRATORY: Normal respiratory effort with symmetrical lung expansion. Lungs clear to auscultation. CARDIOVASCULAR: Regular rate and rhythm with no murmurs. S1, S2. ABDOMEN: Soft, nontender, normal bowel sound NEUROLOGICAL: MENTAL STATUS: Awake and alert. Oriented to person, place, time and general cir cumstances. Poor historian SPEECH, LANGUAGE, HIGHER CORTICAL FUNCTION: no aphasia or dysathria. CRANIAL NERVES: #2: Intact visual valentin to confrontation. The right optic disc was sharp. #3,4,6: Pupils are equal, round and reactive. EOMs full and conjugate. #5: Facial sensation intact in all three divisions bilaterally. Mandibular strength intact. #7: Facial muscles symmetrical and strength intact. #8: Hearing grossly normal to voice. #9,10: Uvula and soft palate rise in the midline. Swallow and voice are normal. #11: Trapezius and sternomastoid strength intact bilaterally. #12: Tongue midline. No fasciculations or atrophy. SENSATION: Sensation to touch and pinprick is normal. MOTOR: Normal tone in the upper and lower extremity. Normal muscle bulk. No fasciculations. No abnormal movements or posturing. Muscle strength of the major groups in the extremities is 4/5 with the right arm feels weaker REFLEXES: Deep tendon reflexes are symmetrical. No pathological reflexes. CEREBELLAR/COORDINATION: Deferred GAIT/STATION: deferred Labs/Diagnostic Data Labs Test 07/08/24 19:27 07/08/24 05:27 07/07/24 05:21 07/06/24 17:11 Range/Units Sodium Level 134 L 136-145 mmol/L Potassium Level 5.4 H 3.5-5.1 mmol/L Chloride Level 99 98-107 mmol/L Carbon Dioxide Level 23 20-31 mmol/L Anion Gap 12 5-15 Blood Urea Nitrogen 74 #H 9-23 mg/dL Creatinine 10.97 *H 0.700-1.30 mg/dL Glomerular Filtration Rate Calc 5 >90 mL/min BUN/Creatinine Ratio 6.7 L 10.0-20.0 Serum Glucose 90 74-106 mg/dL Calcium Level 9.4 8.7-10.4 mg/dL Troponin I High Sensitivity 193 *H </=54 ng/L White Blood Count 5.2 # 4.4-10.8 10^3/uL Red Blood Count 4.15 L 4.5-5.90 10^6/uL Hemoglobin 13.2 L 13.5-17.5 g/dL Hematocrit 40.1 #L 41.0-53.0 % Mean Corpuscular Volume 96.8 80.0-100.0 fL Mean Corpuscular Hemoglobin 31.9 28.0-32.0 pg Mean Corpuscular Hemoglobin Concent 33.0 32.0-36.0 g/dL Red Cell Distribution Width 19.1 H 11.8-14.3 % Platelet Count 32 L 140-450 10^3/uL Mean Platelet Volume 10.1 6.9-10.8 fL Neutrophils (%) (Auto) 77.8 37.0-80.0 % Lymphocytes (%) (Auto) 8.5 L 10.0-50.0 % Monocytes (%) (Auto) 10.7 0.0-12.0 % Eosinophils (%) (Auto) 0.5 0.0-7.0 % Basophils (%) (Auto) 2.5 H 0.0-2.0 % Neutrophils # (Auto) 4.0 1.6-8.6 10 ^3/uL Lymphocytes # (Auto) 0.4 0.4-5.4 10 ^3/uL Monocytes # (Auto) 0.6 0-1.3 10 ^3/uL Eosinophils # (Auto) 0 0-0.8 10 ^3/uL Basophils # (Auto) 0.1 0-0.2 10 ^3/uL Nucleated Red Blood Cells 0.1 % Lactic Acid Level 2.9 *H 0.4-2.0 mmol/L Test 07/06/24 17:10 07/06/24 15:30 07/06/24 15:16 Range/Units Blood Gas Specimen Type Venous Blood Gas Sample Site Vbg - n/a Blood Gas Patient Temperature 37.0 Arterial Blood Date Drawn [id number] Gallo Test N/a Venous Blood pH 7.384 7.320-7.430 Venous Blood pCO2 at Patient Temp 42.5 38.0-54.0 mmHg Venous Blood pO2 at Patient Temp < 36.5 23.0-48.0 mmHg Venous Blood HCO3 24.8 22.0-29.0 mmol/L Venous Blood Base Excess -0.4 -2.0-3.0 mmol/L Blood Gas Liter Flow 5.00 Blood Gas Modality Nasal cannula FiO2 % 40.0 Specimen Drawn By [employer] Platelet Estimate Decreased Prothrombin Time 13.6 H 9.3-11.8 sec Prothrombin Time INR 1.32 H 0.9-1.15 Activated Partial Thromboplast Time 37.7 H 24.5-34.5 SEC D-Dimer, Quantitative 15.77 H 0.0-0.49 mg/L FEU Total Bilirubin 1.9 H 0.2-1.0 mg/dL Aspartate Amino Transferase (AST) 29 13-40 U/L Alanine Aminotransferase (ALT) 21 7-40 U/L Alkaline Phosphatase 204 H 46-116 U/L Total Protein 6.6 5.7-8.2 g/dL Albumin 3.8 3.2-4.8 g/dL Lipase 58 H 12-53 U/L Influenza Type A Antigen Positive Negative Influenza Type B Antigen Positive Negative SARS-CoV-2 Antigen (Rapid) Negative NEGATIVE Microbiology Date/Time Source Procedure Growth Status 07/06/24 15:30 Blood Blood Culture - Preliminary NO GROWTH AFTER 48 HOURS OF INCUBATION. Resulted Assessment Subacute bilateral subdural hematoma Right arm weakness to rule out acute stroke Chronic left-sided weakness, secondary to stroke in 2019, SAH in 2001 Brain aneurysm, chronic subarachnoid hemorrhage in 2001 End-stage renal failure thrombocytopenia Influenza A and B Thrombocytopenia Chronic DVT Plan/Recommendation Monitoring Support treatment Aerosol isolation Follow-up labs MR brain scan Lipitor 10 mg daily for now D/C Plavix 75 mg daily D/C ASA GI prophylaxis Nephrology on case/hemodialysis More recommendation per clinical course Prognosis: Poor This medical document was created using an electronic medical record system with [employer] dictation system. Although this document has been carefully reviewed, there may still be some phonetic and typographical errors. These areas are purely typographical due to imperfections of the software programs, and do not reflect any compromise in the patient's medical care. Plan discussed with: Patient, Other MICHAELA KAYE MD Jul 08, 2024 21:18
[2024-07-08] MEDS ORDERED: LORazepam 2MG/ML-1ML VIAL IV PRN (21:45)
[2024-07-08] MEDS: ATORVASTATIN 20 MG TAB PO SCH (23:03)
[2024-07-08] MEDS: OSELTAMIVIR 30 MG CAP PO SCH (23:03)
[2024-07-09] VITALS (7 sets, daily range): BP systolic 74–145; BP diastolic 16–57; PULSE 80–93; RESP 16–20; TEMP 97.6–99.9; O2SAT 89–98
[2024-07-09 09:17] LABS: Hepatitis A Ab IgM Negative; Hepatitis B Core IgM Negative (Negative); Hepatitis B Surface Antigen Negative (Negative)
[2024-07-09 09:22] LABS: Hepatitis C Antibody Reactive (Negative)
--- NOTE | 2024-07-09 10:00 | DVHPN2 ---
Progress Note Date Seen: Jul 09, 2024 Medical Necessity Reason Pt with a Central, PICC or Fol: No Subjective Other Systems: Patient seen and examined by myself today Objective vital signs Vital Sign Date Time Temp Pulse Resp B/P (MAP) Pulse Ox O2 Delivery O2 Flow Rate FiO2 07/09/24 09:00 97.6 80 16 101/34 (56) 98 97.6 07/08/24 20:00 Room Air* 0 21 Total Intake and Output 07/08/24 07/08/24 07/09/24 15:00 23:00 07:00 Intake Total 250 ml Balance 250 ml medications Current Medications Medications Dose Ordered Sig/Cameron Route Start Time Stop Time Status Last Admin Dose Admin Azithromycin 250 ml @ 125 mls/hr DAILY IV 07/07/24 10:00 07/08/24 09:39 125 MLS/HR Acetaminophen/ Hydrocodone Bitart 1 tab Q4HP PRN PO 07/06/24 22:30 07/07/24 22:48 1 TAB Temazepam 15 mg QHSP PRN PO 07/06/24 22:30 07/06/24 23:41 15 MG Ondansetron HCl 4 mg Q4HP PRN IV 07/06/24 22:30 Acetaminophen 650 mg Q6HP PRN PO 07/06/24 22:30 07/08/24 20:13 650 MG Sevelamer HCl 1,600 mg TIDWM PO 07/07/24 12:00 07/09/24 08:34 1,600 MG Oseltamivir Phosphate 30 mg POSTDI PO 07/08/24 22:00 07/10/24 22:01 07/08/24 23:03 30 MG Atorvastatin Calcium 10 mg HS PO 07/08/24 22:00 07/08/24 23:03 10 MG Lorazepam 1 mg ONCE PRN IV 07/08/24 21:45 Examination: LUNGS:Normal (In follow-up), CVS:Normal, MSK:Normal laboratory and microbiology Laboratory Tests 07/08/24 05:27 07/07/24 05:21 Test 07/08/24 05:27 Range/Units Serum Glucose 90 74-106 mg/dL Microbiology Date/Time Source Procedure Growth Status 07/06/24 15:30 Blood Blood Culture - Preliminary NO GROWTH AFTER 48 HOURS OF INCUBATION. Resulted Problem List/Assessment/Plan Problem List/Assessment/Plan End-stage renal disease on hemodialysis Influenza a and B Congestive heart failure, ejection fraction 40% Sepsis Hyperkalemia Hypotension NSTEMI Recommendations Hemodialysis tomorrow Tamiflu adjust dose for creatinine clearance Renal diet Lokelma 10 g p.o. today Cardiology consult We will continue to follow Plan discussed with: Patient My Orders My Orders Orders - RICARDO ENCINAS MD Procedure Category Date Status Time Renal Specific DIET 07/08/24 Transmitted Diet(Renal) Lunch RICARDO ENCINAS MD Jul 09, 2024 10:00
--- NOTE | 2024-07-09 10:29 | DVH ---
MRI BRAIN WITHOUT CONTRAST CLINICAL HISTORY: Stroke TECHNIQUE: Multiplanar, multisequence MR images of the brain without intravenous contrast. Comparison: MRI BRAIN HEAD WO CONTRAST on DOS: 05/31/24, MRI BRAIN HEAD WO CONTRAST on DOS: 05/28/24 FINDINGS: There are several tiny foci of restricted diffusion in the superior left frontal lobe consistent with small foci of acute to subacute infarct. There is no evidence of acute intracranial hemorrhage. Ther e is no significant surrounding edema or associated mass effect. There is a moderate size chronic right RODRIGUEZ territory hemorrhagic infarct involving the anterior right frontal lobe in the cingulate gyrus. There is associated cystic encephalomalacia and gliosis with he mosiderin staining. There is ex vacuo dilatation of the right lateral ventricle. There are subdural fluid collections overlying the bilateral frontal lobes measuring 1.0 cm on the ri ght and 0.8 cm on the left. The fluid collections demonstrate hyperintense T2 and hypointense T1 sign al. There is no evidence of a mass. There is no significant mass effect or midline shift. The ventricles appear unchanged in size. . The visualized intracranial vasculature demonstrates appropriate flow-voi ds. The craniocervical junction is within normal limits. The calvarium demonstrates normal marrow sig nal. There are small bilateral mastoid effusions. Mucosal thickening in the paranasal sinuses IMPRESSION: 1. Several tiny foci of restricted diffusion in the superior left frontal lobe consistent with small foci of acute to subacute infarct. There is no evidence of acute intracranial hemorrhage. 2. There are bilateral subdural fluid collections overlying the frontal lobes measuring 1.0 cm on the right and 0.8 cm on the left. These demonstrate typical fluid signal with hyperintense T2 and hypoin tense T1 signal . 3. Moderate size chronic right RODRIGUEZ territory hemorrhagic infarct. HS:Y
--- NOTE | 2024-07-09 11:18 | DVHPN2 ---
Progress Note - Dictate Date Seen: Jul 09, 2024 Medical Necessity Reason Pt with a Central, PICC or Fol: No Subjective Mr. Gamez is a 59 years old right-handed gentleman with a history of dyslipidemia, coronary artery disease, heart attack, AAA, progressive kidney disease, brain aneurysm/SAH, stroke with residual left-sided weakness, hyperparathyroidism, GI bleeding, end-stage kidney failure on hemodialysis, he was brought to the hospital on 07/06/24 with a chief complaint of fever. I saw him on 08/02/2023 for stroke (MRI: Negative), 05/31/2024 for TIA/right- sided weakness (MRI: Positive for acute stroke) I have seen and examined the patient, along with Cosmo, his daughter in the room, the patient was doing fine, no headache, or new complaints I have discussed with his daughter about his multiple stroke, indication for antiplatelet agent treatment (monotherapy with aspirin or Plavix), but keeping the low platelet count, this medication needs to be on hold Daughter relates the patient was has good memory though he has confusion sometimes I recommend her to discuss with his doctor Re: Follow up me in my office, she has my contact information Hepatitis panel, 05/28/2024: Hep C Ab: Positive WBC/HB/PLT/MCV, 05/27/2024, 9.1/80.8/73/98.4, 07/07/2024: 5.2/13.2/32/96.8 PT/INR/PTT, 05/27/2024: 12.5/1.19/33.5, 07/06/2024: 13.6/1.32/37.7 BUN/CR, 05/27/2024: 27/6.34, 07/08/2024: 74/10.97 GFR, 05/27/2024: 10, 07/08/24: 5 Lactic acid, 07/06/2024: 2.9 TBI/AST/ALT/AP, 05/27/2024: 1.5/29/29/320 TG/CHO L/LDL/HDL, 08/01/2023: 119/<50/13/<5, 05/31/2024: 78/84/27/40 Extremity venous study, 07/08/2024: No right or left femoropopliteal venous thrombosis. Chronic DVT seen in the right femoral vein. No acute DVT. BERTHA, 06/02/2024: 1. Large intra-atrial septal aneurysm, with a positive intra- atrial bubble study indicating the presence of pedal valve. 2. There is a grade 2 atheromatous seen in the aorta, which likely indicates also high-risk atherosclerotic arterial embolic disease. 3. There is mild sclerosis and thickening of the aortic valve without evidence of stenosis but mild regurgitation. 4. Patient we will need assessment for other possible causes such as arrhythmia in addition to the presence of PFO given history of recurrent stroke Carotid Doppler, 05/31/2024: [place] CT head, 08/01/2023: No evidence of acute intracranial abnormality. Old right MCA infarct. Left paranasal sinus disease CT head, 05/27/2024, 1. Cystic encephalomalacia along the anteromedial right frontal lobe May relate to chronic infarct. There is ex vacuo dilatation of the right lateral ventricle. 2. There are confluence hypodense changes in the right supratentorial periventricular white matter which May relate to gliosis or chronic microvascular ischemic changes. 3. Likely small chronic infarct in the right basal ganglia CT head, 07/07/2024: 1. There are mildly hyperdense subdural fluid collections overlying the bilateral frontoparietal convexities , slightly larger on the right measuring up to 8 mm in maximum diameter. There is mild adjacent sulcal effacement. 2. The ventricles are stable in size with prominent appearing lateral and 3rd ventricles. 3. Stable chronic infarct in the anteromedial right frontal lobe MRI head, 08/03/2023: No acute infarct, intracranial hemorrhage, mass effect, or hydrocephalus (I see right frontal chronic stroke with associated ventricular dilatation) MRI head, 05/31/2024: 1. Areas of acute or subacute ischemia in both frontal lobes, left greater than right as described above. 2. Additional nonacute findings as described above. MRA, head, 08/03/2023: Occluded left MCA segments 2-4 MRI 1. Several tiny foci of restricted diffusion in the superior left frontal lobe consistent with small foci of acute to subacute infarct. There is no evidence of acute intracranial hemorrhage. 2. There are bilateral subdural fluid collections overlying the frontal lobes measuring 1.0 cm on the right and 0.8 cm on the left. These demonstrate typical fluid signal with hyperintense T2 and hypointense T1 signal. 3. Moderate size chronic right RODRIGUEZ territory hemorrhagic infarct head, 06/26/2024: vital signs Vital Sign Date Time Temp Pulse Resp B/P (MAP) Pulse Ox O2 Delivery O2 Flow Rate FiO2 07/09/24 10:00 90 Room Air 07/09/24 10:00 0 21 07/09/24 09:00 97.6 80 16 101/34 (56) 97.6 Total Intake and Output 07/08/24 07/08/24 07/09/24 15:00 23:00 07:00 Intake Total 250 ml Balance 250 ml medications Current Medications Medications Dose Ordered Sig/Cameron Route Start Time Stop Time Status Last Admin Dose Admin Azithromycin 250 ml @ 125 mls/hr DAILY IV 07/07/24 10:00 07/08/24 09:39 125 MLS/HR Acetaminophen/ Hydrocodone Bitart 1 tab Q4HP PRN PO 07/06/24 22:30 07/07/24 22:48 1 TAB Temazepam 15 mg QHSP PRN PO 07/06/24 22:30 07/06/24 23:41 15 MG Ondansetron HCl 4 mg Q4HP PRN IV 07/06/24 22:30 Acetaminophen 650 mg Q6HP PRN PO 07/06/24 22:30 07/08/24 20:13 650 MG Sevelamer HCl 1,600 mg TIDWM PO 07/07/24 12:00 07/09/24 08:34 1,600 MG Oseltamivir Phosphate 30 mg POSTDI PO 07/08/24 22:00 07/10/24 22:01 07/08/24 23:03 30 MG Atorvastatin Calcium 10 mg HS PO 07/08/24 22:00 07/08/24 23:03 10 MG Lorazepam 1 mg ONCE PRN IV 07/08/24 21:45 objective General: the patient is well developed and nourished. No acute distress. MENTAL STATUS: Subjective SPEECH, LANGUAGE, HIGHER CORTICAL FUNCTION: no aphasia or dysathria. CRANIAL NERVES:Pupils are equal, round and reactive. EOMs full and conjugate. Facial sensation intact in all three divisions bilaterally. Mandibular strength intact. Facial muscles symmetrical and strength intact. SENSATION: Sensation to touch and pinprick is normal. MOTOR: Normal tone in the upper and lower extremity. Normal muscle bulk. No fasciculations. No abnormal movements or posturing. Muscle strength of the major groups in the extremities is 4/5 with the right arm feels weaker REFLEXES: Deep tendon reflexes are symmetrical. No pathological reflexes. CEREBELLAR/COORDINATION: Deferred GAIT/STATION: deferred laboratory and microbiology Laboratory Tests 07/08/24 05:27 07/07/24 05:21 Test 07/08/24 05:27 Range/Units Serum Glucose 90 74-106 mg/dL Problem List Subacute bilateral subdural hematoma Right arm weakness to rule out acute stroke Chronic left-sided weakness, secondary to stroke in 2019, SAH in 2001 Acute stroke per MRI dated 07/09/2024 Brain aneurysm, chronic subarachnoid hemorrhage in 2001 End-stage renal failure thrombocytopenia Influenza A and B Thrombocytopenia Chronic DVT ? Cognitive dysfunction Assessment/Plan Monitoring Support treatment Aerosol isolation Follow-up labs Lipitor 10 mg daily for now D/C Plavix 75 mg daily D/C ASA GI prophylaxis Nephrology on case/hemodialysis More recommendation per clinical course This medical document was created using an electronic medical record system with [employer] computerized dictation system. Although this document has been carefully reviewed, there may still be some phonetic and typographical errors. These areas are purely typographical due to imperfections of the software programs, and do not reflect any compromise in the patient's medical care. Prognosis poor Plan discussed with: Daughter, Other Total Time (mins): 40 MICHAELA KAYE MD Jul 09, 2024 11:18
--- NOTE | 2024-07-09 13:01 | DVHDS2 ---
Discharge Summary Date of Admission Jul 06, 2024 at 22:19 Date of Discharge: Jul 09, 2024 Admitting Diagnosis Acute respiratory failure Labs/Diagnostic Data: Laboratory Results Test 07/08/24 19:27 07/08/24 05:27 07/07/24 05:21 07/06/24 17:11 Hepatitis A IgM Antibody Negative Hepatitis B Surface Antigen Negative (Negative) Hepatitis B Core IgM Antibody Negative (Negative) Hepatitis C Antibody Reactive (Negative) Sodium Level 134 mmol/L (136-145) Potassium Level 5.4 mmol/L (3.5-5.1) Chloride Level 99 mmol/L (98-107) Carbon Dioxide Level 23 mmol/L (20-31) Anion Gap 12 (5-15) Blood Urea Nitrogen 74 mg/dL (9-23) Creatinine 10.97 mg/dL (0.700-1.30) Glomerular Filtration Rate Calc 5 mL/min (>90) BUN/Creatinine Ratio 6.7 (10.0-20.0) Serum Glucose 90 mg/dL (74-106) Calcium Level 9.4 mg/dL (8.7-10.4) Troponin I High Sensitivity 193 ng/L (</=54) White Blood Count 5.2 10^3/uL (4.4-10.8) Red Blood Count 4.15 10^6/uL (4.5-5.90) Hemoglobin 13.2 g/dL (13.5-17.5) Hematocrit 40.1 % (41.0-53.0) Mean Corpuscular Volume 96.8 fL (80.0-100.0) Mean Corpuscular Hemoglobin 31.9 pg (28.0-32.0) Mean Corpuscular Hemoglobin Concent 33.0 g/dL (32.0-36.0) Red Cell Distribution Width 19.1 % (11.8-14.3) Platelet Count 32 10^3/uL (140-450) Mean Platelet Volume 10.1 fL (6.9-10.8) Neutrophils (%) (Auto) 77.8 % (37.0-80.0) Lymphocytes (%) (Auto) 8.5 % (10.0-50.0) Monocytes (%) (Auto) 10.7 % (0.0-12.0) Eosinophils (%) (Auto) 0.5 % (0.0-7.0) Basophils (%) (Auto) 2.5 % (0.0-2.0) Neutrophils # (Auto) 4.0 10 ^3/uL (1.6-8.6) Lymphocytes # (Auto) 0.4 10 ^3/uL (0.4-5.4) Monocytes # (Auto) 0.6 10 ^3/uL (0-1.3) Eosinophils # (Auto) 0 10 ^3/uL (0-0.8) Basophils # (Auto) 0.1 10 ^3/uL (0-0.2) Nucleated Red Blood Cells 0.1 % Lactic Acid Level 2.9 mmol/L (0.4-2.0) Test 07/06/24 17:10 07/06/24 15:30 07/06/24 15:16 Blood Gas Specimen Type Venous Blood Gas Sample Site Vbg - n/a Blood Gas Patient Temperature 37.0 Arterial Blood Date Drawn [id number] Gallo Test N/a Venous Blood pH 7.384 (7.320-7.430) Venous Blood pCO2 at Patient Temp 42.5 mmHg (38.0-54.0) Venous Blood pO2 at Patient Temp < 36.5 mmHg (23.0-48.0) Venous Blood HCO3 24.8 mmol/L (22.0-29.0) Venous Blood Base Excess -0.4 mmol/L (-2.0-3.0) Blood Gas Liter Flow 5.00 Blood Gas Modality Nasal cannula FiO2 % 40.0 Specimen Drawn By mechatronics technician Platelet Estimate Decreased Prothrombin Time 13.6 sec (9.3-11.8) Prothrombin Time INR 1.32 (0.9-1.15) Activated Partial Thromboplast Time 37.7 SEC (24.5-34.5) D-Dimer, Quantitative 15.77 mg/L FEU (0.0-0.49) Total Bilirubin 1.9 mg/dL (0.2-1.0) Aspartate Amino Transferase (AST) 29 U/L (13-40) Alanine Aminotransferase (ALT) 21 U/L (7-40) Alkaline Phosphatase 204 U/L (46-116) Total Protein 6.6 g/dL (5.7-8.2) Albumin 3.8 g/dL (3.2-4.8) Lipase 58 U/L (12-53) Influenza Type A Antigen Positive (Negative) Influenza Type B Antigen Positive (Negative) SARS-CoV-2 Antigen (Rapid) Negative (NEGATIVE) Other Laboratory Tests 07/08/24 05:27 07/07/24 05:21 Brief Hx & Hospital Course: History of Present Illness 59-year-old male presents for evaluation of chills. Patient was being dialyzed today when fci into his treatment he started feel chills and shaking. They checked his temperature and it was 102.1. Patient denies chest pain. He reports mild shortness for breath. Reports generalized weakness. No other acute complaints were reported. Course of hospitalization: Patient was found to be positive for influenza a and B. Patient was started on Tamiflu with patient's symptoms improving. Patient has CT scan of the chest to rule out PE which was negative for pulmonary embolism, with findings of left- sided rib fractures three through seven. Patient also reported having some neck pain. Patient had CT scan of his head and neck which revealed subdural fluid. Neurology consultation was obtained. MRI of the brain was performed. Long discussion was made with Dr. Varner in addition to the patient's daughter. At this time he was cleared from Neurology standpoint to be discharged home. He will follow up with Dr. Varner in 2-3 weeks, in addition to stopping Plavix and aspirin at this time given probable subacute subdural hemorrhaging. Patient will follow up with both Nephrology and PCP within the next 2-3 weeks. All questions answered. Physical examination General: Alert and Oriented x3. No acute distress. Well-nourished. Eyes: EOMI. Anicteric. HENT: Moist mucous membranes. Lungs: Clear to auscultation bilaterally. No accessory muscle use. Cardiovascular: Regular rate and rhythm. No murmur. No JVD. Abdomen: Soft, non-tender and non-distended. No palpable masses. Extremities: No edema. Non-tender. Skin: No rashes or lesions. Warm. Neurologic: No focal neurological deficits. CN II-XII grossly intact, but not individually tested. Psychiatric: Cooperative. Appropriate mood and affect. Total time spent with patient discussing and formulating plan of care: 35 minutes. This medical document was created using an electronic medical record system with [employer] dictation system. Although this document has been carefully reviewed, there may still be some phonetic and typographical errors. These areas are purely typographical due to imperfections of the software programs, and do not reflect any compromise in the patient's medical care. Consults/Reason for consult Neurology: Subdural fluid Condition at Discharge: Guarded Final Diagnosis/Problems List ACUTE RESPIRATORY FAILURE SECONDARY TO VIRAL PNE. Secondary Diagnosis: -syncope with collapse -NSTEMI, probably type 2 -end-stage renal disease with hemodialysis -primary hypertension -anemia of chronic disease -influenza a and B -rib fracture, left 4 through 7 -pulmonary embolism ruled out Discharge Disposition: Home Discharge Instruct/Medications Diet: Renal Diet comment: RENAL DIET FLUID RESTRICTION Activity: No Restrictions, As Tolerated Follow Up/Referral: Neurology in 2-3 weeks Nephrology in 1-2 weeks PCP in 1-2 week Medications: Continue all medications except Plavix and Aspirin 36 Discharge Statement: "Patient was advised to return to the ER or call 911 if any headaches, dizziness, shortness of breath, chest pain, abdominal pain, bleeding, fevers, or worsening of medical condition. Patient was counseled about treatment plan, medications, possible side effects, patientverbalized understanding. All questions were answered to the best of my ability. This discharge took greater then 30 minutes in planning, reviewing documentation, counseling the patient, and discussing with other team members." ASSESSMENT ASSESSMENT Assessment ACUTE RESPIRATORY FAILURE SECONDARY TO VIRAL PNE. Date of Service: Jul 09, 2024 Billing Provider: JOY ALVA NP Common Visit Codes: 09893-OCT/OBS DISCH DAY >30min JOY ALVA NP Jul 09, 2024 13:01
[2024-07-10] MEDS ORDERED: SODIUM CHL 0.9% 1000 ML BAG XX ONE (07:00)
== END 2024-07-09 14:45 | disposition home or self-care (01) | DRG 133 ==
LOC: EDBD 12:57 → ER 12:57 → OVERFLOW 22:19 → EAST 07-07 01:40
PROVIDERS: ADMIT Nurse Practitioner Acute Care; ATTEND Nurse Practitioner Acute Care
PROC: 5A1D70Z Performance of Urinary Filtration, Intermittent, Less than 6 Hours Per Day (ICD-10-PCS; principal; 2024-07-08)
DX: J96.00 Acute respiratory failure, unspecified whether with hypoxia or hypercapnia (principal); J10.08 Influenza due to other identified influenza virus with other specified pneumonia; I13.2 Hypertensive heart and chronic kidney disease with heart failure and with stage 5 chronic kidney disease, or end stage renal disease; I21.A1 Myocardial infarction type 2; D69.6 Thrombocytopenia, unspecified; N18.6 End stage renal disease; D63.1 Anemia in chronic kidney disease; J12.9 Viral pneumonia, unspecified; Q61.3 Polycystic kidney, unspecified; J10.1 Influenza due to other identified influenza virus with other respiratory manifestations; E78.5 Hyperlipidemia, unspecified; I82.511 Chronic embolism and thrombosis of right femoral vein; E07.9 Disorder of thyroid, unspecified; I25.10 Atherosclerotic heart disease of native coronary artery without angina pectoris; H54.62 Unqualified visual loss, left eye, normal vision right eye; Z20.822 Contact with and (suspected) exposure to COVID-19; E21.3 Hyperparathyroidism, unspecified; E87.5 Hyperkalemia; I50.22 Chronic systolic (congestive) heart failure; F17.200 Nicotine dependence, unspecified, uncomplicated; Z99.2 Dependence on renal dialysis; Z80.0 Family history of malignant neoplasm of digestive organs; Z83.3 Family history of diabetes mellitus; Z82.49 Family history of ischemic heart disease and other diseases of the circulatory system; Q21.12 Patent foramen ovale; I25.2 Old myocardial infarction; Z79.899 Other long term (current) drug therapy; Z79.02 Long term (current) use of antithrombotics/antiplatelets
CPT/HCPCS: 36415; 36600; 70450; 70551; 71046; 71275; 72125; 73080; 80048; 80053; 80074; 82805; 83605; 83690; 84484; 85025; 85379; 85610; 85730; 87040; 87426; 87804; 90935; 93005; 93970; G0378; G9035; J1642; J2543

== ENCOUNTER 2024-07-18 16:05 | Emergency (ER) | payer MEDICAID ==
[~2024-07-18] VITALS: Ht 170.2 cm; Wt 72.7 kg
[~2024-07-18 16:05] MED LIST changes: -ASPI-628 PO; -CLOP75TA28 PO; -NIFE1TAB30 PO; -PANT40TA2 PO; -SACU1TAB PO; -SEVE800T7 PO
[2024-07-18] MEDS: MORPHINE SULFATE INJ 2 MG/ml SYRG IM ONE (16:30)
--- NOTE | 2024-07-18 16:52 | ED.PDOC ---
Maricel. trauma (HPI) HPI Comments 59 y.o male with PMHx of ESRD, dialysis, CVA, and hyperlipidemia, presents to the ED via EMS for a chief complaint of left sided shoulder pain s/p mechanical fall 3 days ago. Patient reports fall occurred while he was getting into his car, states no LOC or head trauma then but shoulder pain has been constant and worse with movement. Patient denies any numbness or tingling sensation to shoulder or arm. Chief Complaint: Fall Injury Time Seen by MD: 16:35 Primary Care Provider: UNKNOWN Reviewed notes: Nurses Notes, Md Do Resident Urgent Care Notes, Medications, Allergies Allergies: Coded Allergies: Codeine (Verified Adverse Reaction, Unknown, 06/02/24) Home Meds Active Scripts Aspirin (Aspir-81) 81 Mg Tab, 1 TAB PO DAILY, #30 TAB 5 Refills Prov:PHUONG LOPEZ RESIDENT 08/06/23 Atorvastatin Calcium (Lipitor) 40 Mg Tab, 1 TAB PO QPM, #90 TAB 1 Refill Prov:CASS SHEA MD 03/09/23 Clopidogrel Bisulfate (CLOPIDOGREL) 75 Mg Tab, 75 MG PO DAILY, #30 TAB 5 Refills Prov:CASS SHEA MD 03/09/23 Reported Medications Sevelamer Carbonate (Sevelamer Carbonate) 800 Mg Tab, 3 TAB PO TIDWM for 30 Days, #270 07/08/24 Omeprazole (Omeprazole Dr) 20 Mg Cap, 1 CAP PO DAILY for 30 Days, #30 07/08/24 Ferric Citrate (Auryxia) 210 Mg Tab, 2 TAB PO TIDWM, TAB 05/28/24 Cinacalcet Hydrochloride (Sensipar) 30 Mg Tab, 2 TAB PO DAILY, TAB 05/15/23 Information Source: Patient, Emergency Med Personnel Mode of Arrival: EMS Severity: Moderate Timing: Days (3) Duration: Since onset Location: (L) Shoulder Location of laceration: None Mechanism: Fall Associated signs and symtoms: Other Past Medical History PAST MEDICAL HISTORY: CVA, ESRD, High Lipids, HTN Surgical History: Denies all surgeries Family History Family History: Family hx of Cancer Social History Smoker: Non-Smoker Alcohol: Denies ETOH Use Drugs: Denies Drug Use Lives In: Home Constitutional: denies: chills, diaphoresis, fatigue, fever, malaise, sweats, weakness, others EENTM: denies: blurred vision, double vision, ear bleeding, ear discharge, ear drainage, ear pain, ear ringing, eye pain, eye redness, hearing loss, mouth pain, mouth swelling, nasal discharge, nose bleeding, nose congestion, nose pain, photophobia, tearing, throat pain, throat swelling, voice changes, others Respiratory: denies: cough, hemoptysis, orthopnea, SOB at rest, shortness of breath, SOB with excertion, stridor, wheezing, others Cardiovascular: denies: chest pain, dizzy spells, diaphoresis, Dyspnea on exertion, edema, irregular heart beat, left arm pain, lightheadedness, p alpitations, PND, syncope, others Gastrointestinal: denies: abdomen distended, abdominal pain, blood streaked bowels, constipated, diarrhea, dysphagia, difficulty swallowing, hematemesis, melena, nausea, poor appetite, poor fluid intake, rectal bleeding, rectal pain, vomiting, others Genitourinary: denies: burning, dysuria, flank pain, frequency, hematuria, incontinence, penile discharge, penile sore, pain, testicle pain, testicle swelling, urgency, others Neurological: denies: dizziness, fainting, headache, left sided numbness, left sided weakness, numbness, paresthesia, pre-existing deficit, right sided numbness, right sided weakness, seizure, speech problems, tingling, tremors, weakness, others Musculoskeletal: reports: others (left shoulder pain ); denies: back pain, gout, joint pain, joint swelling, muscle pain, muscle stiffness, neck pain Integumetry: denies: bruises, change in color, change in hair/nails, dryness, laceration, lesions, lumps, rash, wounds, others Allergic/Immunocompromised: denies: Difficulty Healing, Frequent Infections, Hives, Itching, others Hematologic/Lymphatic: denies: anemia, blood clots, easy bleeding, easy bruising, swollen glands, others Endocrine: denies: excessive hunger, excessive sweating, excessive thirst, excessive urination, flushing, intolerance to cold, intolerance to heat, un explained weight gain, unexplained weight loss, others Psychiatric: denies: anxiety, bipolar disorder, depression, hopeless, panic disorder, schizophrenia, sleepless, suicidal, others All Other Systems: Reviewed and Negative Physical Exam General Appearance: No Apparent Distress, Normal HEENT: Normal ENT Inspection, Other (no Corneal Opacification) Neck: Full Range of Motion, Non-Tender, Normal, Normal Inspection Respiratory: Chest Non-Tender, Lungs Clear, No Accessory Muscle Use, No Respira tory Distress, Normal Breath Sounds Cardiovascular: No Edema, No JVD, No Murmur, No Gallop, Normal Peripheral Pulses, Regular Rate/Rhythm Breast Exam: Deferred Gastrointestinal: No Organomegaly, Non Tender, No Pulsatile Mass, Normal Bowel Sounds, Soft Genitalia: Deferred Pelvic: Deferred Rectal: Deferred Extremities: No calf tenderness, Pedal edema (1+ to bilateral lower extremities ), Tender (left lateral calvical and shoulder ttp) Musculoskeletal : Location: Left Extremity Location: Shoulder Apperance: Tenderness: Mild Neurologic: Alert, director of scientific research II-XII nml as Tested, No Motor Deficits, Normal Affect, Normal Mood, No Sensory Deficits Cerebellar Function: Normal Reflexes: Normal Skin: Dry, Normal Color, Warm Lymphatic: No Adenopathy Was a procedure done? Was a procedure done?: Yes Sedation Sedation?: No Informed consent obtained: Yes Other Procedure Procedure sling application on left shoulder. intact neurovascular functions before and after Differential Diagnosis Multiple Trauma: Fractures, Vascular Injury, Abrasions, Contusion, Hematoma, Other (sprain, strain) X-Ray, Labs, Meds, VS Vital Signs Date Time Temp Pulse Resp B/P (MAP) Pulse Ox O2 Delivery O2 Flow Rate FiO2 07/18/24 16:33 98.0 104 16 104/72 (83) 92 07/18/24 16:30 103 20 101/60 Current Medications Medications (Trade) Dose Ordered Sig/Cameron Route Start Time Stop Time Status Last Admin Morphine Sulfate 2 mg ONCE ONCE IM 07/18/24 16:30 07/18/24 16:31 DC 07/18/24 16:30 Time of 1ST Reevaluation: 16:50 Reevaluation 1ST: Unchanged Time of 2ND Reevaluation: 17:58 Reevaluation 2ND: Improved Patient Education/Counseling: Diagnosis, Treatment, Prognosis, Need For Follow Up Family Education/Counseling: No Family Present Additional Information I reviewed the following notes from patient's past medical encounters: 07/06/24 for acute respiratory distress 05/27/24 for right sided weakness 12/09/23 for Dialysis in need The following tests were ordered, and results were reviewed by me: Morphine and X ray Additional Information was gathered from interviewing the following independent historians: Paramedics I reviewed and agreed with the following test results read by other providers: Left shoulder X ray I discussed treatment and results with medical personnel Departure 1 Departure Time of Disposition: 17:58 Impression: Primary Impression: Clavicle fracture Qualified Codes: S42.022A - Displaced fracture of shaft of left clavicle, initial encounter for closed fracture Disposition: HOME / SELF CARE / HOMELESS Condition: Good Additional Instructions: ice, rest. use sling and follow up with your doctor on Saturday e-Prescriptions Hydrocodone-Acetaminophen (Hydrocodone Bitartrate/AC 5-325 mg) 1 Tab Tab 1 TAB PO BID PRN, #4 TAB Prov: JENNIFER LEIVA MD 07/18/24 Discharged With: Self Critical Care Note Critical Care Time?: No Stability Stability form required: No I personally scribed for JENNIFER LEIVA MD ([email or web address]) on 07/18/24 at 16:52. Electronically submitted by Gayathri Dacosta ([facility]). JENNIFER LEIVA MD Jul 18, 2024 16:52
--- NOTE | 2024-07-18 17:45 | DVH ---
EXAM: XY L SHOULDER 2+ VIEW XRAY CLINICAL HISTORY: injury COMPARISON: None TECHNIQUE: XY L SHOULDER 2+ VIEW XRAY Findings/Impression: 3 views of the left shoulder. Age indeterminate moderately displaced fracture of the left mid to distal clavicle. There is no evidence of dislocation, blastic, or lytic lesions. Tunneled left sided HD catheter. No joint effusion or superficial soft tissue abnormalities.
[2024-07-18] MEDS ORDERED: HYDR-4902 PO (17:59)
[2024-07-18 19:47] VITALS: TEMP 97.9
[2024-07-18 19:48] VITALS: BP 97/56
[2024-07-18 19:50] VITALS: PULSE 100; RESP 16; O2SAT 92
== END 2024-07-18 20:08 | disposition home or self-care (01) ==
LOC: EDBD 16:05 → ER 16:05
DX: S42.002A Fracture of unspecified part of left clavicle, initial encounter for closed fracture (principal); Z86.73 Personal history of transient ischemic attack (TIA), and cerebral infarction without residual deficits; I12.0 Hypertensive chronic kidney disease with stage 5 chronic kidney disease or end stage renal disease; E78.5 Hyperlipidemia, unspecified; Z79.899 Other long term (current) drug therapy; Z79.84 Long term (current) use of oral hypoglycemic drugs; N18.6 End stage renal disease; W18.39XA Other fall on same level, initial encounter; Y93.89 Activity, other specified; Y92.89 Other specified places as the place of occurrence of the external cause; Y99.8 Other external cause status
CPT/HCPCS: 73030; 96372; 99284; J2270

== ENCOUNTER 2024-08-05 15:25 | Inpatient (IN) | payer MEDICAID, OTHER ==
[~2024-08-05] VITALS: Ht 182.9 cm; Wt 77.0 kg
[~2024-08-05 15:25] MED LIST changes: +HYDR-4902 PO
--- NOTE | 2024-08-05 16:19 | DVH ---
CHEST RADIOGRAPH Indication: sob Technique: Single frontal view of the chest was obtained Comparison: XY CHEST XRAY 1 VIEW on DOS: 05/27/24, XY CHEST XRAY 1 VIEW on DOS: 08/05/23, XY CHEST POR TABLE on DOS: 07/31/23 FINDINGS: Lines and Tubes: Dual-lumen catheter in place from the left internal jugular vein with the tip in the right atrium. Lungs: Bibasilar airspace disease with atelectasis in the left base Pleura: No effusion. No pneumothorax. Cardiomediastinal contours: Unremarkable Bones: No acute osseous abnormality. IMPRESSION: 1. Internal jugular catheter in place from the left with the tip in the right atrium. 2. Bibasilar areas of airspace disease with accompanying atelectasis in the left base.
--- NOTE | 2024-08-05 16:27 | ED.PDOC ---
History of Present Illness HPI Comments 59-year-old male who comes in with chief complaint of shortness a breath. The patient completed dialysis today and then was having some shortness for breath so 911 was called. When the paramedics arrived, the patient had an oxygen saturation of 85% on room air. The patient was blood pressure was also somewhat decreased. The patient had pneumonia approximately three weeks ago and was treated at our hospital for approximately one day. EN route, the patient received a hand-held nebulizer which she stated helped somewhat. The patient was also been having some diarrhea for three days. The patient was placed on 6 L nasal cannula and the oxygen saturation went up to 93%. He has been having congestion for three weeks and the shortness for breath for three days. The patient was also states that he fell down approximately three weeks ago and sustained a right rib fracture which she is currently experiencing pain with. He did complete dialysis. Chief Complaint: Shortness of Breath Time Seen by MD: 15:39 Primary Care Provider: UNKNOWN Reviewed Notes: Nurses Notes, Baking Powder Mixer Notes, Medications, Allergies (Allergies to codeine) Allergies: Coded Allergies: Codeine (Verified Adverse Reaction, Unknown, 06/02/24) Home Meds Active Scripts Hydrocodone-Acetaminophen (Hydrocodone Bitartrate/AC 5-325 mg) 1 Tab Tab, 1 TAB PO BID PRN, #4 TAB Prov:JENNIFER LEIVA MD 07/18/24 Aspirin (Aspir-81) 81 Mg Tab, 1 TAB PO DAILY, #30 TAB 5 Refills Prov:PHUONG LOPEZ RESIDENT 08/06/23 Atorvastatin Calcium (Lipitor) 40 Mg Tab, 1 TAB PO QPM, #90 TAB 1 Refill Prov:CASS SHEA MD 03/09/23 Clopidogrel Bisulfate (CLOPIDOGREL) 75 Mg Tab, 75 MG PO DAILY, #30 TAB 5 Refills Prov:CASS SHEA MD 03/09/23 Reported Medications Sevelamer Carbonate (Sevelamer Carbonate) 800 Mg Tab, 3 TAB PO TIDWM for 30 Days, #270 07/08/24 Omeprazole (Omeprazole Dr) 20 Mg Cap, 1 CAP PO DAILY for 30 Days, #30 07/08/24 Ferric Citrate (Auryxia) 210 Mg Tab, 2 TAB PO TIDWM, TAB 05/28/24 Cinacalcet Hydrochloride (Sensipar) 30 Mg Tab, 2 TAB PO DAILY, TAB 05/15/23 Information Source: Patient, Emergency Med Personnel Mode of Arrival: EMS Severity: Moderate Timing: Days Duration: Since onset Prehospital treatment: Outpatient Pharmacy Manager, IVF, Oxygen Associated signs and symptoms The patient is having shortness for breath as well as cough and low blood pressure Past Medical History PAST MEDICAL HISTORY: CVA, ESRD, High Lipids, HTN Surgical History (Other): Port-A-Cath surgery Family History Family History: Family hx of Cancer Social History Smoker: Non-Smoker Alcohol: Denies ETOH Use Drugs: Denies Drug Use Lives In: Home Constitutional: reports: weakness; denies: chills, diaphoresis, fatigue, fever, malaise, sweats, others EENTM: denies: blurred vision, double vision, ear bleeding, ear discharge, ear drainage, ear pain, ear ringing, eye pain, eye redness, hearing loss, mouth pain, mouth swelling, nasal discharge, nose bleeding, nose congestion, nose pain, photophobia, tearing, throat pain, throat swelling, voice changes, others Respiratory: reports: shortness of breath; denies: cough, hemoptysis, orthopnea, SOB at rest, SOB with excertion, stridor, wheezing, others Cardiovascular: reports: chest pain (Right-sided chest pain); denies: dizzy spells, diaphoresis, Dyspnea on exertion, edema, irregular heart beat, left arm pain, lightheadedness, palpitations, PND, syncope, others Gastrointestinal: denies: abdomen distended, abdominal pain, blood streaked bowels, constipated, diarrhea, dysphagia, difficulty swallowing, hematemesis, melena, nausea, poor appetite, poor fluid intake, rectal bleeding, rectal pain, vomiting, others Genitourinary: denies: burning, dysuria, flank pain, frequency, hematuria, incontinence, penile discharge, penile sore, pain, testicle pain, testicle swelling, urgency, others Neurological: denies: dizziness, fainting, headache, left sided numbness, left sided weakness, numbness, paresthesia, pre-existing deficit, right sided numbness, right sided weakness, seizure, speech problems, tingling, tremors, weakness, others Musculoskeletal: denies: back pain, gout, joint pain, joint swelling, muscle pain, muscle stiffness, neck pain, others Integumetry: denies: bruises, change in color, change in hair/nails, dryness, laceration, lesions, lumps, rash, wounds, others Allergic/Immunocompromised: denies: Difficulty Healing, Frequent Infections, Hives, Itching, others Hematologic/Lymphatic: denies: anemia, blood clots, easy bleeding, easy bruising, swollen glands, others Endocrine: denies: excessive hunger, excessive sweating, excessive thirst, excessive urination, flushing, intolerance to cold, intolerance to heat, unexplained weight gain, unexplained weight loss, others Psychiatric: denies: anxiety, bipolar disorder, depression, hopeless, panic disorder, schizophrenia, sleepless, suicidal, others Physical Exam General Appearance: Moderate Distress, Thin HEENT: Normal ENT Inspection, Pharynx Normal, TMs Normal Neck: Full Range of Motion, Non-Tender, Normal, Normal Inspection Respiratory: Chest Non-Tender, Decreased Breath Sounds (right sided ), No Accessory Muscle Use, Respiratory Distress Cardiovascular: No Edema, No JVD, No Murmur, No Gallop, Normal Peripheral Pulses, Regular Rate/Rhythm Breast Exam: Deferred Gastrointestinal: No Organomegaly, Non Tender, No Pulsatile Mass, Normal Bowel Sounds, Soft Genitalia: Deferred Pelvic: Deferred Rectal: Deferred Extremities: No calf tenderness, Normal capillary refill, No pedal edema Musculoskeletal : Apperance: Normal Neurologic: Alert, manager regional sales II-XII nml as Tested, Motor Weakness, Normal Affect, Normal Mood, No Sensory Deficits Cerebellar Function: Unable to Test Reflexes: Normal Skin: Dry, Pallor, Warm Lymphatic: No Adenopathy Was a procedure done? Was a procedure done?: No EKG EKG : Pulse Rate (adult): 109 [place]: LAD Cardiac Rhythm: NSR ST: Nonsp (R-wave progression) Differential Dx Considerations may include: PE, pneumonia, ACS, NH X-Ray, Labs, Meds, VS Vital Signs Date Time Temp Pulse Resp B/P (MAP) Pulse Ox O2 Delivery O2 Flow Rate FiO2 08/05/24 16:26 109 08/05/24 15:53 109 08/05/24 15:45 96 Nasal Cannula* 6 44 08/05/24 15:40 98.6 108 22 106/68 (81) 96 Lab Test 08/05/24 17:24 08/05/24 16:17 08/05/24 16:00 Range/Units Troponin I High Sensitivity Pending 4 </=54 ng/L White Blood Count 18.0 H 4.4-10.8 10^3/uL Red Blood Count 3.87 L 4.5-5.90 10^6/uL Hemoglobin 11.1 L 13.5-17.5 g/dL Hematocrit 35.0 L 41.0-53.0 % Mean Corpuscular Volume 90.4 80.0-100.0 fL Mean Corpuscular Hemoglobin 28.8 28.0-32.0 pg Mean Corpuscular Hemoglobin Concent 31.9 L 32.0-36.0 g/dL Red Cell Distribution Width 18.4 H 11.8-14.3 % Platelet Count 130 L 140-450 10^3/uL Mean Platelet Volume 8.2 6.9-10.8 fL Neutrophils (%) (Auto) 37.0-80.0 % Lymphocytes (%) (Auto) 10.0-50.0 % Monocytes (%) (Auto) 0.0-12.0 % Basophils (%) (Auto) 0.0-2.0 % Neutrophils # (Auto) 1.6-8.6 10 ^3/uL Lymphocytes # (Auto) 0.4-5.4 10 ^3/uL Monocytes # (Auto) 0-1.3 10 ^3/uL Differential Total Cells Counted 100.0 100 Neutrophils % (Manual) 77 37.0-80.0 Band Neutrophils % (Manual) 9 Lymphocytes % (Manual) 4 L 10.0-50.0 Monocytes % (Manual) 8 0-12 Eosinophils % (Manual) 2 0-7 Basophils % (Manual) 0 0.0-2.0 Metamyelocytes % (manual) 0 Myelocytes % (Manual) 0 Promyelocytes % (Manual) 0 Blast Cells % (Manual) 0 Reactive Lymphocytes 0 Platelet Estimate Decreased Large Platelets Few D-Dimer, Quantitative 13.94 H 0.0-0.49 mg/L FEU Sodium Level 137 136-145 mmol/L Potassium Level 3.2 L 3.5-5.1 mmol/L Chloride Level 100 98-107 mmol/L Carbon Dioxide Level 27 20-31 mmol/L Anion Gap 10 5-15 Blood Urea Nitrogen 15 9-23 mg/dL Creatinine 3.24 H 0.700-1.30 mg/dL Glomerular Filtration Rate Calc 21 >90 mL/min BUN/Creatinine Ratio 4.6 L 10.0-20.0 Serum Glucose 83 74-106 mg/dL Calcium Level 7.1 L 8.7-10.4 mg/dL B-Type Natriuretic Peptide 113.47 0-100 pg/mL Lactic Acid Level 2.0 0.4-2.0 mmol/L Chest x-ray shows: IMPRESSION: 1. Internal jugular catheter in place from the left with the tip in the right atrium. 2. Bibasilar areas of airspace disease with accompanying atelectasis in the left base. IV Hep-Lock was established The patient is chemistry panel shows a potassium of 3.2 The creatinine is 3.24 The patient completed dialysis today. The D-dimer is elevated at 13.94 With the patient's shortness a breath as well as tachycardia we did suspect p ossible PE We did order a V/Q scan on this patient is secondary to the renal function and inability to give IV contrast The patient's CBC shows an elevated white blood cell count of 18 The patient was anemic with a hemoglobin of 11.1 At this time, the troponin level came back at four The patient was being admitted at this time Images Reviewed?: Images reviewed and evaluated by me Time of 1ST Reevaluation: 16:26 Reevaluation 1ST: Unchanged Patient Education/Counseling: Diagnosis, Treatment, Prognosis Family Education/Counseling: No Family Present Departure 1 Departure Time of Disposition: 18:21 Impression: Primary Impression: Acute respiratory failure Qualified Codes: J96.01 - Acute respiratory failure with hypoxia Additional Impressions: Elevated d-dimer ESRD on dialysis Disposition: ADMITTED INPATIENT Admit to: Tele Condition: Fair Critical Care Note Critical Care Time?: Yes (45 min-critical care time only) Stability Stability form required: Yes Unstable for transfer: Telemetry monitoring (Telemetry monitoring required), ED Physician Assesment (Clinical assesment) Heart Score Heart Score: Heart Score Response (Comments) Value History N/A 0 EKG N/A 0 Age N/A 0 Risk Factors N/A 0 Troponin N/A 0 Total 0 ADONAY RICO MD Aug 05, 2024 16:26
[2024-08-05 16:38] LABS: Hemoglobin 11.1 g/dL (13.5-17.5); Mean Corpuscular Hemoglobin 28.8 pg (28.0-32.0); Mean Corpuscular Hgb Conc. 31.9 g/dL (32.0-36.0); Mean Corpuscular Volume 90.4 fL (80.0-100.0); Platelet Count (auto) 130 10^3/uL (140-450); Red Blood Cells 3.87 10^6/uL (4.5-5.90); Red Cell Distribution Width 18.4 % (11.8-14.3)
[2024-08-05 16:41] LABS: Chloride 100 mmol/L (98-107); Sodium 137 mmol/L (136-145)
[2024-08-05 16:42] LABS: Anion Gap 10 (5-15); Basophils % (manual) 0 (0.0-2.0); Blast Cells 0; Carbon Dioxide 27 mmol/L (20-31); Metamyelocytes % 0; Myelocytes % 0; Promyelocytes % 0; Reactive Lymphocytes 0
[2024-08-05 16:47] LABS: BUN/Creatinine Ratio 4.6 (10.0-20.0); Blood Urea Nitrogen 15 mg/dL (9-23); Glucose 83 mg/dL (74-106)
[2024-08-05 16:49] LABS: Calcium 7.1 mg/dL (8.7-10.4); Potassium 3.2 mmol/L (3.5-5.1)
[2024-08-05 17:08] LABS: Band Neutrophils % (manual) 9; Eosinophils % (manual) 2 (0-7); Lymphocytes % (manual) 4 (10.0-50.0); Monocytes % (manual) 8 (0-12); Platelet Estimate Decreased
[2024-08-05 17:09] LABS: Large Platelets FEW
--- NOTE | 2024-08-05 19:08 | ECG ---
[facility] Test Date: 2024-08-05 Test Time: 15:31:02 Pat Name: ARVIND MANCILLA Department: ED Room: 0232 Gender: M Circuit Board Inspector: SHAYLA : 1965 Requested By: ADONAY RICO Order Number: [id number] Reading MD: Juan J Bower Measurements Intervals [place] Rate: 109 P: 21 VT: 145 QRS: -33 QRSD: 111 T: 125 QT: 348 QTc: 469 Interpretive Statements Sinus tachycardia Paired ventricular premature complexes Left axis deviation Abnormal R-wave progression, late transition Borderline repolarization abnormality Electronically Signed On 08-06-2024 22:19:16 PST by Juan J Bower Please click the below link to view image of tracing.
[2024-08-05] MEDS ORDERED: ACETAMINOPHEN 325 MG TAB PO PRN (21:30)
[2024-08-05] MEDS ORDERED: MORPHINE SULFATE INJ 2 MG/ml SYRG IV PRN (21:30)
[2024-08-05] MEDS ORDERED: NITROGLYCERIN 0.4 MG SL TAB SL PRN (21:30)
[2024-08-05 22:46] LABS: Blood Alcohol 4.5 mg/dL (<10); Magnesium 1.7 mg/dL (1.6-2.6)
[2024-08-05 22:53] LABS: INR 2.06 (0.9-1.15); Prothrombin Time 20.3 sec (9.3-11.8)
--- NOTE | 2024-08-05 23:42 | DVHHPRES ---
History of Present Illness Resident Creating Document: RONIT KIRBY RESIDENT History of Present Illness ARVIND MANCILLA 59-year-old male poor historian with a PMH of ESRD on HD, CVA, HLD, HTN presented to the ED with the chief complaints of shortness of breaths. Patient reported he has completed dialysis today, started having increased shortness of breath. Patient reported he has been on home oxygen but not sure how much he has been taking. The patient also states that he fell down approximately three weeks ago and sustained a right rib fracture and left clavicle fracture for which he is currently experiencing pain with. On my assessment patient denies fever, chest pain, nausea, vomiting, diaphoresis, palpitations and other acute associated symptoms. PMH: ESRD on HD, CVA 4 times, HLD, HTN PSH: Port-A-Cath surgery Family history: Noncontributory Social history: Patient lives with a daughter. Denies smoking, alcohol and other drug abuse Allergies: Codeine Home medications: Unable to recall Review of Systems Constitutional: No: Fever, Chills, Sweats, Weakness, Malaise, Other Eyes: Other (Decreased vision in left eye due to cataract) ENT: No: Ear pain, Ear discharge, Nose pain, Nose discharge, Nose congestion, Mouth pain, Mouth swelling, Throat pain, Throat swelling, Other Respiratory: Shortness of breath Gastrointestinal: No: Nausea, Vomiting, Abdominal Pain, Diarrhea, Constipation, Melena, Hematochezia, Other Genitourinary: No Dysuria, No Frequency, No Incontinence, No Hematuria, No Retention, No Other Musculoskeletal: other (Ribcage pain, clavicle pain) Skin: No: Rash, Lesions, Jaundice, Bruising, Other Neurological: No: Weakness, Numbness, Incoordination, Change in speech, Confusion, Seizures, Other Allergies: Coded Allergies: NO KNOWN ALLERGIES (Unverified , 08/06/24) Medications Current Medications Medications Dose Ordered Sig/Cameron Route Start Time Stop Time Status Last Admin Dose Admin Sodium Chloride 10 ml Q8HR IV 08/05/24 22:00 Enoxaparin Sodium 30 mg DAILY SC 08/06/24 10:00 Acetaminophen 650 mg Q6HP PRN PO 08/05/24 21:30 Morphine Sulfate 2 mg Q4HPRN PRN IV 08/05/24 21:30 UNV Nitroglycerin 0.4 mg Q5MINP PRN SL 08/05/24 21:30 Morphine Sulfate 2 mg Q30M PRN IV 08/05/24 21:30 UNV Ceftriaxone Sodium 50 ml @ 100 mls/hr DAILY@2300 IV 08/06/24 23:00 Azithromycin 250 ml @ 125 mls/hr DAILY@2200 IV 08/06/24 22:00 Exam Vital Signs Vital Signs Date Time Temp Pulse Resp B/P (MAP) Pulse Ox O2 Delivery O2 Flow Rate FiO2 08/05/24 16:26 109 08/05/24 15:45 96 Nasal Cannula* 6 44 08/05/24 15:40 98.6 22 106/68 (81) Exam Pt is lying on bed General Appearance: Alert, Oriented X3, Cooperative, mild distress HEENT: Atraumatic, Mucous membranes moist/pink, 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 Clear to auscultation, Normal air movement, Cardiovascular: Regular rate, Normal S1, Normal S2, Abdominal: Active bowel sounds, Soft, no distention, no tenderness Extremities: No edema, Normal pulses, No tenderness/swelling Skin: No Significant rash, except past surgical scars Neuro: Normal speech, sensorimotor deficits none Psych/Mental Status: Mental status NL, Mood NL Labs/Xrays Labs Test 08/05/24 22:09 08/05/24 17:24 08/05/24 16:17 Range/Units Prothrombin Time 20.3 H 9.3-11.8 sec Prothrombin Time INR 2.06 H 0.9-1.15 Activated Partial Thromboplast Time 37.0 H 24.5-34.5 SEC Lactic Acid Level 1.4 0.4-2.0 mmol/L Magnesium Level 1.7 1.6-2.6 mg/dL Ammonia < 10 L 11-32 umol/L Plasma/Serum Blood Alcohol 4.5 <10 mg/dL Troponin I High Sensitivity 5 </=54 ng/L White Blood Count 18.0 H 4.4-10.8 10^3/uL Red Blood Count 3.87 L 4.5-5.90 10^6/uL Hemoglobin 11.1 L 13.5-17.5 g/dL Hematocrit 35.0 L 41.0-53.0 % Mean Corpuscular Volume 90.4 80.0-100.0 fL Mean Corpuscular Hemoglobin 28.8 28.0-32.0 pg Mean Corpuscular Hemoglobin Concent 31.9 L 32.0-36.0 g/dL Red Cell Distribution Width 18.4 H 11.8-14.3 % Platelet Count 130 L 140-450 10^3/uL Mean Platelet Volume 8.2 6.9-10.8 fL Neutrophils (%) (Auto) 37.0-80.0 % Lymphocytes (%) (Auto) 10.0-50.0 % Monocytes (%) (Auto) 0.0-12.0 % Basophils (%) (Auto) 0.0-2.0 % Neutrophils # (Auto) 1.6-8.6 10 ^3/uL Lymphocytes # (Auto) 0.4-5.4 10 ^3/uL Monocytes # (Auto) 0-1.3 10 ^3/uL Differential Total Cells Counted 100.0 100 Neutrophils % (Manual) 77 37.0-80.0 Band Neutrophils % (Manual) 9 Lymphocytes % (Manual) 4 L 10.0-50.0 Monocytes % (Manual) 8 0-12 Eosinophils % (Manual) 2 0-7 Basophils % (Manual) 0 0.0-2.0 Metamyelocytes % (manual) 0 Myelocytes % (Manual) 0 Promyelocytes % (Manual) 0 Blast Cells % (Manual) 0 Reactive Lymphocytes 0 Platelet Estimate Decreased Large Platelets Few D-Dimer, Quantitative 13.94 H 0.0-0.49 mg/L FEU Sodium Level 137 136-145 mmol/L Potassium Level 3.2 L 3.5-5.1 mmol/L Chloride Level 100 98-107 mmol/L Carbon Dioxide Level 27 20-31 mmol/L Anion Gap 10 5-15 Blood Urea Nitrogen 15 9-23 mg/dL Creatinine 3.24 H 0.700-1.30 mg/dL Glomerular Filtration Rate Calc 21 >90 mL/min BUN/Creatinine Ratio 4.6 L 10.0-20.0 Serum Glucose 83 74-106 mg/dL Calcium Level 7.1 L 8.7-10.4 mg/dL B-Type Natriuretic Peptide 113.47 0-100 pg/mL Thyroid Stimulating Hormone (TSH) 4.97 H 0.55-4.78 uIU/mL Assessment/Plan Assessment/Plan # ? Gram-positive Gram-negative bacterial PNA # Questionable sepsis - CXR showing airspace disease - ordered respiratory cultures - Rocephin and azithromycin - breathing treatments if needed - pancultures # ESRD on HD - consulted nephrology # Hypokalemia - Repleting - Monitor lab # rule out PE/DVT - ordered DVT scan, V/Q scan pending - elevated D-dimer # Rib fracture, left 4 through 7 # Left clavicle fracture displaced - pain management PUD PPX: Not indicated VTE PPX: Lovenox Diet: Renal diet Goals of care discussed with the patient for more than 29 minutes: Full code status Case discussed with Dr. Celeste, patient and nurse. Plan discussed with: Patient My Orders Orders - RONIT KIRBY RESIDENT Procedure Category Date Status Time Admit ADMIT 08/05/24 Transmitted 21:25 Allergies NELLIE 08/05/24 In Process 21:25 Code Status CODE 08/05/24 Transmitted 21:25 Full Liq Diet DIET 08/06/24 Transmitted Breakfast Renal DIET 08/06/24 Transmitted Standard(2gna,3gk,Lopho) Breakfast Sodium Chloride Lock PHA 08/05/24 In Process (Saline Lock Ns) 22:00 Oxygen Per Hour RT 08/05/24 Transmitted 21:25 Complete Blood Count LAB 08/06/24 Verified 04:00 Comprehensive LAB 08/06/24 Verified Metabolic Panel 04:00 Condition: Stable NELLIE 08/05/24 In Process 21:25 Acetaminophen Tablet PHA 08/05/24 In Process (Tylenol Tablet) 21:30 Morphine Sulfate PHA 08/05/24 Pending Injection 21:30 Nitroglycerin PHA 08/05/24 In Process Sublingual (Ntrostat 21:30 Morphine Sulfate PHA 08/05/24 Pending Injection 21:30 Oxygen By Nasal RT 08/05/24 Transmitted Cannula 21:25 Stat Ekg For Chest NELLIE 08/05/24 In Process Pain 21:25 Notify Of Changes NELLIE 08/05/24 In Process From Base 21:25 *Dr. [facility] CONS 08/05/24 Transmitted -[place] 21:25 Covid19 Antigen [place] LAB 08/05/24 Logged Drug Screen LAB 08/05/24 Logged 21:57 Rapid Influenza A&B LAB 08/05/24 Logged 21:57 Urinalysis LAB 08/05/24 Logged 21:57 Bilat Lower Dvt US 08/05/24 Taken 21:57 Enoxaparin Sodium PHA 08/06/24 In Process (Lovenox) 10:00 Ceftriaxone 1gm/50ml PHA 08/06/24 In Process D5w (Rocephin) 23:00 Azithromycin 500mg/ PHA 08/05/24 In Process 250ml (Zithromax 50 22:45 Azithromycin 500mg/ PHA 08/06/24 In Process 250ml (Zithromax 50 22:00 Nm Vq Scan NM 08/05/24 Logged 22:48 Hemoglobin A1c LAB 08/05/24 In Process 23:36 Free T4 (Free LAB 08/05/24 Logged Thyroxine) 23:36 T3 Total LAB 08/05/24 Logged 23:36 Blood Culture MARBELLA 08/05/24 Transmitted 23:38 Urine Bacterial MARBELLA 08/05/24 Uncollected Culture 23:38 Date of Service: Aug 05, 2024 Billing Provider: MUKUND CELESTE MD Common Visit Codes: [id number] INP/OBS CARE (HIGH) RONIT KIRBY RESIDENT Aug 05, 2024 23:42 MUKUND CELESTE MD Aug 06, 2024 13:02
--- NOTE | 2024-08-05 23:46 | DVH ---
Bilateral lower extremity venous duplex Clinical History: r/o dvt Comparison: US BILAT LOWER DVT on DOS: 07/08/24, US BILAT LOWER DVT on DOS: 08/02/23 Technique: Duplex Doppler evaluation of the deep venous systems of both lower extremities from the common femora l veins to the popliteal veins including color Doppler and spectral/pulsed waveform analysis was perf ormed. Findings: RIGHT SIDE: The common femoral vein, saphenous vein, and proximal superficial femoral vein were not visualized on this study The deep femoral vein demonstrates appropriate compressibility and waveform variability. The popliteal vein demonstrates appropriate compressibility and waveform variability. There is normal compressibility at the tibioperoneal trunk. LEFT SIDE: The common femoral vein, saphenous vein, and proximal superficial femoral vein were not visualized on this study The deep femoral vein demonstrates appropriate compressibility and waveform variability. The popliteal vein demonstrates appropriate compressibility and waveform variability. There is normal compressibility at the tibioperoneal trunk. Impression: No right or left femoropopliteal venous thrombosis. Limitations as detailed above.
[2024-08-05 23:59] LABS: Free T4 (Free Thyroxine) 1.04 ng/dL (0.89-1.76); T3 Total 0.6 ng/mL (0.60-1.81)
[2024-08-06 01:00] VITALS: PULSE 91; RESP 26; O2SAT 94
[2024-08-06] MEDS: cefTRIAXone 1GM/50ML D5W 50 ML IV ONE (01:14)
[2024-08-06] MEDS: SODIUM CHLOR 0.9% PF (SALINE LOCK) 10ML VIAL/SYR IV SCH (01:14)
[2024-08-06] MEDS: POTASSIUM EFFERVESENT TAB 25 MEQ PO ONE (01:16)
[2024-08-06] MEDS: AZITHROMYCIN 500MG/ 250ML 250 ML IV ONE (01:55)
[2024-08-06 03:58] LABS: COVID19 ANTIGEN SOFIA FIA NEGATIVE (NEGATIVE); Rapid Influenza A Negative (Negative); Rapid Influenza B Negative (Negative)
[2024-08-06 06:37] LABS: Basophils # (auto) 0.1 10 ^3/uL (0-0.2); Basophils % (auto) 0.5 % (0.0-2.0); Eosinophils # (auto) 0.2 10 ^3/uL (0-0.8); Eosinophils % (auto) 1.6 % (0.0-7.0); Hematocrit 34.4 % (41.0-53.0); Hemoglobin 10.7 g/dL (13.5-17.5); Lymphocytes # (auto) 0.9 10 ^3/uL (0.4-5.4); Lymphocytes % (auto) 6.7 % (10.0-50.0); Mean Corpuscular Hemoglobin 28.2 pg (28.0-32.0); Mean Corpuscular Hgb Conc. 31.1 g/dL (32.0-36.0); Mean Corpuscular Volume 90.6 fL (80.0-100.0); Monocytes # (auto) 1.2 10 ^3/uL (0-1.3); Monocytes % (auto) 9.2 % (0.0-12.0); Neutrophils # (auto) 10.5 10 ^3/uL (1.6-8.6); Nucleated Red Blood Cells % 0.2 %; Platelet Count (auto) 127 10^3/uL (140-450); Red Cell Distribution Width 18.5 % (11.8-14.3); White Blood Cell 12.8 10^3/uL (4.4-10.8)
[2024-08-06 06:53] LABS: Anion Gap 9 (5-15); BUN/Creatinine Ratio 4.6 (10.0-20.0); Blood Urea Nitrogen 21 mg/dL (9-23); Carbon Dioxide 26 mmol/L (20-31); Chloride 103 mmol/L (98-107); Glucose 100 mg/dL (74-106); Potassium 3.9 mmol/L (3.5-5.1); Sodium 138 mmol/L (136-145)
[2024-08-06 06:58] LABS: Alanine Aminotransferase < 9 U/L (7-40); Albumin 2.5 g/dL (3.2-4.8); Alkaline Phosphatase 136 U/L (46-116); Aspartate Aminotransferase 13 U/L (13-40); Calcium 7.4 mg/dL (8.7-10.4)
[2024-08-06] MEDS ORDERED: VANCOMYCIN PER PHARMACY 0 MG IV SCH (07:15)
[2024-08-06 07:30] VITALS: PULSE 88; RESP 20; O2SAT 96
--- NOTE | 2024-08-06 07:42 | DVHPNRES ---
Progress Note Date Seen: Aug 06, 2024 Resident Creating Document: MICHELLE GOODEN RESIDENT Medical Necessity Reason Pt with a Central, PICC or Fol: No Subjective Review of Systems Patient is a 59-year-old male with past medical history of ESRD on HD Saturday, autosomal dominant polycystic kidney disease, CVA x4 with residual left-sided weakness, dyslipidemia, hypertension, cataract with partial vision loss, chronic fractures, who came in due to shortness of breath. According to the patient, for the past 2 weeks he has been experiencing shortness of breaths and left shoulder pain secondary to a fall he sustained 2 weeks ago and fractured his left-sided ribs, multiple and left shoulder. Per patient, he has been having shortness of breaths for the last 2 weeks as breathing hurts his ribs. Patient is on hemodialysis via a left chest wall catheter, patient has not old right arm fistula which is nonfunctional. Chest x-ray showed bibasilar areas of airspace disease accompanying atelectasis in the left base. Past surgical history: Port-A-Cath Past Hospitalization: 1 month ago for shortness of breath Social & Personal history: Patient lives with daughter. Quit smoking 3 years ago, prior to that was smoking half a pack per day for 10 years. Denies using alcohol. Denies using drugs. Allergies: Codeine Patient seen and examined at bedside. Patient is alert and oriented to time, place person and responding to all questions. General: Fatigue Eyes: No Pain, No Vision change, No Conjunctivae inflammation, No Eyelid inflammation, No Other, No Redness ENT: No Ear pain, No Ear discharge, No Nose pain, No Nose discharge, No Nose congestion, No Mouth pain, No Mouth swelling, No Throat pain, No Throat swelling, No Other Cardiovascular: No Chest Pain, Palpitations, No Orthopnea, No Paroxysmal No Dyspnea, No Edema, No Lt Headedness, No Other Respiratory: Productive cough, Shortness of breath, No SOB with exertion, No Wheezing, No Hemoptysis, No Pleuritic Pain, No Sputum, No Other Gastrointestinal: No Nausea, No Vomiting, No Abdominal Pain, No Diarrhea, No Constipation, No Melena, No Hematochezia, No Other Genitourinary: Dysuria, No Frequency, No Incontinence, Hematuria, No Retention, No Other Musculoskeletal: No other, No neck pain, No shoulder pain, No arm pain, No back pain, No hand pain, No leg pain, No foot pain Skin: No Rash, No Lesions, No Jaundice, No Bruising, No Other Objective vital signs Vital Sign Date Time Temp Pulse Resp B/P (MAP) Pulse Ox O2 Delivery O2 Flow Rate FiO2 08/06/24 07:00 86 33 133/43 (73) 95 08/06/24 01:00 98.8 98.8 08/06/24 01:00 Nasal Cannula* 2 28 Total Intake and Output 08/05/24 08/05/24 08/06/24 15:00 23:00 07:00 Intake Total 100 ml Balance 100 ml medications Current Medications Medications Dose Ordered Sig/Cameron Route Start Time Stop Time Status Last Admin Dose Admin Sodium Chloride 10 ml Q8HR IV 08/05/24 22:00 08/06/24 06:00 10 ML Enoxaparin Sodium 30 mg DAILY SC 08/06/24 10:00 Acetaminophen 650 mg Q6HP PRN PO 08/05/24 21:30 Morphine Sulfate 2 mg Q4HPRN PRN IV 08/05/24 21:30 UNV Morphine Sulfate 2 mg Q30M PRN IV 08/05/24 21:30 UNV Vancomycin HCl 0 ml @ 0 mls/hr UD IV 08/06/24 07:15 UNV Cefepime HCl 50 ml @ 12.5 mls/hr DAILY IV 08/06/24 10:00 Examination General Appearance: Cooperative. Dry mucous membranes. NAD Head Exam: Normal inspection Neck Exam: Normal inspection. Non-tender. Normal alignment Pulmonary/Respiratory: Chest non-tender. Clear bilateral breath sounds, no crackles, no wheezing. Cardiovascular/Chest: Regular rate and rhythm. No murmurs. No JVD. Abdominal Exam: Normal bowel sounds. Soft. normal abdomen, no visible veins, Nontender. No hepatospenomegaly. No masses Ankle Exam: Negative ankle edema Upper extremities: Decreased movement in the left upper extremity due to pain Lower extremities: Negative lower extremity edema Neuro/Mental Status: A&O x4. Coherent. Thoughts/Psych: Normal thought pattern. Appropriate mood and affect. Good judgement and insight Skin Exam: Normal inspection. Normal color. Warm. Dry laboratory and microbiology Laboratory Tests 08/06/24 05:50 Test 08/06/24 05:50 Range/Units Serum Glucose 100 74-106 mg/dL Labs and/or images reviewed: Labs reviewed by me, Image(s) reviewed by me Problem List/Assessment/Plan Problem List/Assessment/Plan Community-acquired pneumonia, Gram-positive versus Gram-negative Sepsis due to above Ruled out DVT - CXR: Bibasilar areas of airspace disease with a accompanying atelectasis in the left base. - lower extremity Doppler: No right or left femoropopliteal venous thrombosis. - IV vancomycin, IV cefepime ESRD on hemodialysis Saturday, Saturday and Saturday History of polycystic kidney disease Coagulopathy due to above? Hematuria - nephrology consulted - currently holding patient's home dose Eliquis as INR currently >2 Left shoulder chronic fracture Left 4 through 7 rib fracture - acetaminophen 650 mg p.o. t.i.d. - IV morphine 2 mg q.4 hours as needed for severe pain Hypertension Dyslipidemia - monitor Goals of care: Full code, discussed for >16 minutes on 08/06/2024 Plan discussed with patient Plan discussed with Dr. Tipton Plan discussed with: Patient, Other (RN) Date of Service: Aug 06, 2024 Billing Provider: RONNI TIPTON MD Common Visit Codes: [id number] INP/OBS CARE(HIGH) MICHELLE GOODEN Aug 06, 2024 07:42 RONNI TIPTON MD Aug 07, 2024 16:00
[2024-08-06] MEDS: MORPHINE SULFATE INJ 2 MG/ml SYRG IV PRN (09:57)
[2024-08-06] MEDS: ENOXAPARIN SOD 30 MG/0.3 ML SYRINGE SC SCH (09:57)
[2024-08-06] MEDS: CEFEPIME 1GM/ 50ML 50 ML IV SCH (09:57)
[2024-08-06] MEDS: VANCOMYCIN 1.25GM/250ML 250 ML IV ONE (11:06)
--- NOTE | 2024-08-06 14:48 | DVHINCON2 ---
Date of service: Aug 06, 2024 Referring Physician Reason for Consultation esrd History of Present Illness 59 years old male with past medical history of ESRD on dialysis Saturday, CVA, blindness, hypertension, ADPKD, presenting with chief complaints shortness of breath and left shoulder pain patient reports having dialysis yesterday full treatment and did not miss any dialysis treatments He is needing nasal cannula 2 L Currently being treated for pneumonia with IV antibiotics Past Medical History per hpi Past Surgical History per hpi Allergies: Coded Allergies: NO KNOWN ALLERGIES (Unverified , 08/06/24) Home Meds Active Scripts Hydrocodone-Acetaminophen (Hydrocodone Bitartrate/AC 5-325 mg) 1 Tab Tab, 1 TAB PO BID PRN, #4 TAB Prov:JENNIFER LEIVA MD 07/18/24 Aspirin (Aspir-81) 81 Mg Tab, 1 TAB PO DAILY, #30 TAB 5 Refills Prov:PHUONG LOPEZ RESIDENT 08/06/23 Atorvastatin Calcium (Lipitor) 40 Mg Tab, 1 TAB PO QPM, #90 TAB 1 Refill Prov:CASS SHEA MD 03/09/23 Clopidogrel Bisulfate (CLOPIDOGREL) 75 Mg Tab, 75 MG PO DAILY, #30 TAB 5 Refills Prov:CASS SHEA MD 03/09/23 Reported Medications Sevelamer Carbonate (Sevelamer Carbonate) 800 Mg Tab, 3 TAB PO TIDWM for 30 Days, #270 07/08/24 Omeprazole (Omeprazole Dr) 20 Mg Cap, 1 CAP PO DAILY for 30 Days, #30 07/08/24 Ferric Citrate (Auryxia) 210 Mg Tab, 2 TAB PO TIDWM, TAB 05/28/24 Cinacalcet Hydrochloride (Sensipar) 30 Mg Tab, 2 TAB PO DAILY, TAB 05/15/23 Current Medications Current Medications Medications (Trade) Dose Ordered Sig/Cameron Route PRN Reason Start Time Stop Time Status Last Admin Sodium Chloride (Saline Lock Ns) 10 ml Q8HR IV 08/05/24 22:00 08/06/24 14:03 Enoxaparin Sodium (Lovenox) 30 mg DAILY SC 08/06/24 10:00 08/06/24 11:59 DC 08/06/24 09:57 Acetaminophen (Tylenol Tablet) 650 mg Q6HP PRN PO PAIN SCALE 1-3 OR TEMP>100.4 08/05/24 21:30 08/06/24 11:36 DC Morphine Sulfate 2 mg Q4HPRN PRN IV SEVERE PAIN (7-10 PAIN SCALE) 08/05/24 21:30 08/06/24 09:57 Nitroglycerin (Ntrostat Sublingual) 0.4 mg Q5MINP PRN SL FOR CHEST PAIN 08/05/24 21:30 08/06/24 07:33 DC Morphine Sulfate 2 mg Q30M PRN IV FOR CHEST PAIN 08/05/24 21:30 08/06/24 11:36 DC Ceftriaxone Sodium 50 ml @ 100 mls/hr DAILY@2300 IV 08/06/24 23:00 08/06/24 07:03 DC Azithromycin 250 ml @ 125 mls/hr DAILY@2200 IV 08/06/24 22:00 08/06/24 07:03 DC Vancomycin HCl 0 ml @ 0 mls/hr UD IV 08/06/24 07:15 Cefepime HCl 50 ml @ 12.5 mls/hr DAILY IV 08/06/24 10:00 08/06/24 09:57 Acetaminophen (Tylenol Tablet) 650 mg TID PO 08/06/24 14:00 UNV Family History: Colon cancer Diabetes mellitus G8 FATHER, Onset:Unknown FH: cancer G8 MOTHER G8 FATHER Hypertension G8 MOTHER Review of Systems HEENT-denies headache, + vision changes, no hearing issue, denies neck complaints, denies throat issues Respiratory system-denies cough, ++ shortness of breath Cardiovascular system-denies chest pain, denies palpitations Abdomen-denies abdominal pain, denies nausea, denies vomiting, denies co nstipation or diarrhea Musculoskeletal-denies swelling in the legs, denies pain in the extremities Genitourinary-denies urinary symptoms like dysuria, stream issues Neuro-denies dizziness, denies seizures Psychiatric-denies psychiatric history H&P Exam Vital Signs/I&O Vital Sign Date Time Temp Pulse Resp B/P (MAP) Pulse Ox O2 Delivery O2 Flow Rate FiO2 08/06/24 12:00 82 20 133/28 (63) 96 08/06/24 07:30 97.9 97.9 08/06/24 07:30 Nasal Cannula* 2 28 Intake and Output 08/05/24 08/06/24 19:00 07:00 Intake Total 100 ml Balance 100 ml Intake IV Total 100 ml Physical Exam General-not in any distress HEENT-normocephalic, no icterus, no pallor, neck supple Respiratory-fair air entry bilateral, [id number] heard, no murmurs appreciated Abdominal-soft, nontender, nondistended Musculoskeletal-no pedal edema, no calf tenderness Genitourinary-deferred Neuro-awake alert oriented x3, Psychiatric-not agitated, cooperative, Labs/Diagnostic Data Labs/Diagnostic Data Laboratory Tests Test 08/06/24 05:50 08/06/24 02:45 08/05/24 22:09 08/05/24 17:24 Range/Units White Blood Count 12.8 #H 4.4-10.8 10^3/uL Red Blood Count 3.80 L 4.5-5.90 10^6/uL Hemoglobin 10.7 L 13.5-17.5 g/dL Hematocrit 34.4 L 41.0-53.0 % Mean Corpuscular Volume 90.6 80.0-100.0 fL Mean Corpuscular Hemoglobin 28.2 28.0-32.0 pg Mean Corpuscular Hemoglobin Concent 31.1 L 32.0-36.0 g/dL Red Cell Distribution Width 18.5 H 11.8-14.3 % Platelet Count 127 L 140-450 10^3/uL Mean Platelet Volume 8.5 6.9-10.8 fL Neutrophils (%) (Auto) 82.0 H 37.0-80.0 % Lymphocytes (%) (Auto) 6.7 L 10.0-50.0 % Monocytes (%) (Auto) 9.2 0.0-12.0 % Eosinophils (%) (Auto) 1.6 0.0-7.0 % Basophils (%) (Auto) 0.5 0.0-2.0 % Neutrophils # (Auto) 10.5 H 1.6-8.6 10 ^3/uL Lymphocytes # (Auto) 0.9 0.4-5.4 10 ^3/uL Monocytes # (Auto) 1.2 0-1.3 10 ^3/uL Eosinophils # (Auto) 0.2 0-0.8 10 ^3/uL Basophils # (Auto) 0.1 0-0.2 10 ^3/uL Nucleated Red Blood Cells 0.2 % Sodium Level 138 136-145 mmol/L Potassium Level 3.9 3.5-5.1 mmol/L Chloride Level 103 98-107 mmol/L Carbon Dioxide Level 26 20-31 mmol/L Anion Gap 9 5-15 Blood Urea Nitrogen 21 9-23 mg/dL Creatinine 4.56 H 0.700-1.30 mg/dL Glomerular Filtration Rate Calc 14 >90 mL/min BUN/Creatinine Ratio 4.6 L 10.0-20.0 Serum Glucose 100 74-106 mg/dL Calcium Level 7.4 L 8.7-10.4 mg/dL Total Bilirubin 1.0 0.2-1.0 mg/dL Aspartate Amino Transferase (AST) 13 13-40 U/L Alanine Aminotransferase (ALT) < 9 7-40 U/L Alkaline Phosphatase 136 H 46-116 U/L Total Protein 6.0 5.7-8.2 g/dL Albumin 2.5 L 3.2-4.8 g/dL Influenza Type A Antigen Negative Negative Influenza Type B Antigen Negative Negative SARS-CoV-2 Antigen (Rapid) Negative NEGATIVE Prothrombin Time 20.3 H 9.3-11.8 sec Prothrombin Time INR 2.06 H 0.9-1.15 Activated Partial Thromboplast Time 37.0 H 24.5-34.5 SEC Hemoglobin A1c 5.1 <5.7 % A1C Lactic Acid Level 1.4 0.4-2.0 mmol/L Magnesium Level 1.7 1.6-2.6 mg/dL Ammonia < 10 L 11-32 umol/L Free Thyroxine (T4) Calculated 1.04 0.89-1.76 ng/dL Total Triiodothyronine (TT3) 0.60 0.60-1.81 ng/mL Plasma/Serum Blood Alcohol 4.5 <10 mg/dL Troponin I High Sensitivity 5 </=54 ng/L Test 08/05/24 16:17 08/05/24 16:00 Range/Units White Blood Count 18.0 H 4.4-10.8 10^3/uL Red Blood Count 3.87 L 4.5-5.90 10^6/uL Hemoglobin 11.1 L 13.5-17.5 g/dL Hematocrit 35.0 L 41.0-53.0 % Mean Corpuscular Volume 90.4 80.0-100.0 fL Mean Corpuscular Hemoglobin 28.8 28.0-32.0 pg Mean Corpuscular Hemoglobin Concent 31.9 L 32.0-36.0 g/dL Red Cell Distribution Width 18.4 H 11.8-14.3 % Platelet Count 130 L 140-450 10^3/uL Mean Platelet Volume 8.2 6.9-10.8 fL Neutrophils (%) (Auto) 37.0-80.0 % Lymphocytes (%) (Auto) 10.0-50.0 % Monocytes (%) (Auto) 0.0-12.0 % Basophils (%) (Auto) 0.0-2.0 % Neutrophils # (Auto) 1.6-8.6 10 ^3/uL Lymphocytes # (Auto) 0.4-5.4 10 ^3/uL Monocytes # (Auto) 0-1.3 10 ^3/uL Differential Total Cells Counted 100.0 100 Neutrophils % (Manual) 77 37.0-80.0 Band Neutrophils % (Manual) 9 Lymphocytes % (Manual) 4 L 10.0-50.0 Monocytes % (Manual) 8 0-12 Eosinophils % (Manual) 2 0-7 Basophils % (Manual) 0 0.0-2.0 Metamyelocytes % (manual) 0 Myelocytes % (Manual) 0 Promyelocytes % (Manual) 0 Blast Cells % (Manual) 0 Reactive Lymphocytes 0 Platelet Estimate Decreased Large Platelets Few D-Dimer, Quantitative 13.94 H 0.0-0.49 mg/L FEU Sodium Level 137 136-145 mmol/L Potassium Level 3.2 L 3.5-5.1 mmol/L Chloride Level 100 98-107 mmol/L Carbon Dioxide Level 27 20-31 mmol/L Anion Gap 10 5-15 Blood Urea Nitrogen 15 9-23 mg/dL Creatinine 3.24 H 0.700-1.30 mg/dL Glomerular Filtration Rate Calc 21 >90 mL/min BUN/Creatinine Ratio 4.6 L 10.0-20.0 Serum Glucose 83 74-106 mg/dL Calcium Level 7.1 L 8.7-10.4 mg/dL Troponin I High Sensitivity 4 </=54 ng/L B-Type Natriuretic Peptide 113.47 0-100 pg/mL Thyroid Stimulating Hormone (TSH) 4.97 H 0.55-4.78 uIU/mL Lactic Acid Level 2.0 0.4-2.0 mmol/L Assessment ESRD on hemodialysis MWF Acute hypoxic respiratory failure secondary to pneumonia/atelectasis Sepsis secondary to pneumonia--- Hypertension Recommendations Hemodialysis will be arranged tomorrow Renally dose antibiotics to dialysis dosing Septic work up- follow blood cx --r/o line infection will follow closely Plan discussed with: Patient CHADD ALVARADO MD Aug 06, 2024 14:48
--- NOTE | 2024-08-06 15:14 | DVH ---
NUCLEAR MEDICINE VENTILATION/PERFUSION LUNG SCAN. INDICATION: PULMONARY EMBOLISM COMPARISON: None TECHNIQUE: Following intravenous demonstration of 4.2 millicuries of technetium 99m MAA, and inhala tion of 3.8 mCi of Xe 133 scintigrams were obtained in multiple projections of the lungs. FINDINGS: There is normal uptake of radionuclide on both the ventilation and perfusion portions of the examinat ion. No mismatched perfusion defects are demonstrated. Uptake is normally homogeneous. IMPRESSION: Low probability for PE.
[2024-08-06] MEDS: ACETAMINOPHEN 325 MG TAB PO SCH (18:20)
[2024-08-06 21:00] VITALS: BP 97/22; PULSE 85; RESP 18; TEMP 98.4; O2SAT 93
[2024-08-06] MEDS ORDERED: AZITHROMYCIN 500MG/ 250ML 250 ML IV SCH (22:00)
[2024-08-06 22:19] VITALS: BP 141/41; PULSE 97; RESP 16; TEMP 98.6; O2SAT 94
[2024-08-06] MEDS ORDERED: cefTRIAXone 1GM/50ML D5W 50 ML IV SCH (23:00)
[2024-08-07] VITALS (8 sets, daily range): BP systolic 92–159; BP diastolic 28–82; PULSE 76–102; RESP 17–18; TEMP 97.5–98.3; O2SAT 76–99
[2024-08-07] MEDS: SODIUM CHL 0.9% 1000 ML BAG XX ONE (07:00)
[2024-08-07 07:58] LABS: Basophils # (auto) 0.1 10 ^3/uL (0-0.2); Basophils % (auto) 0.7 % (0.0-2.0); Eosinophils # (auto) 0.2 10 ^3/uL (0-0.8); Eosinophils % (auto) 1.4 % (0.0-7.0); Hematocrit 33.5 % (41.0-53.0); Hemoglobin 10.6 g/dL (13.5-17.5); Lymphocytes # (auto) 0.8 10 ^3/uL (0.4-5.4); Mean Corpuscular Hemoglobin 28.5 pg (28.0-32.0); Mean Corpuscular Hgb Conc. 31.7 g/dL (32.0-36.0); Mean Corpuscular Volume 89.9 fL (80.0-100.0); Monocytes # (auto) 0.9 10 ^3/uL (0-1.3); Monocytes % (auto) 6.1 % (0.0-12.0); Neutrophils # (auto) 13.5 10 ^3/uL (1.6-8.6); Neutrophils % (auto) 86.8 % (37.0-80.0); Nucleated Red Blood Cells % 0.1 %; Platelet Count (auto) 133 10^3/uL (140-450); Red Blood Cells 3.73 10^6/uL (4.5-5.90); Red Cell Distribution Width 18.5 % (11.8-14.3); White Blood Cell 15.6 10^3/uL (4.4-10.8)
[2024-08-07 08:05] LABS: Chloride 100 mmol/L (98-107); Potassium 4.1 mmol/L (3.5-5.1)
[2024-08-07 08:06] LABS: Anion Gap 10 (5-15); Carbon Dioxide 26 mmol/L (20-31)
[2024-08-07 08:11] LABS: BUN/Creatinine Ratio 6.3 (10.0-20.0); Glucose 82 mg/dL (74-106)
[2024-08-07 08:14] LABS: Blood Urea Nitrogen 37 mg/dL (9-23); Calcium 7.4 mg/dL (8.7-10.4); Sodium 136 mmol/L (136-145)
--- NOTE | 2024-08-07 09:19 | DVHPN2 ---
Progress Note Date Seen: Aug 07, 2024 Medical Necessity Reason Pt with a Central, PICC or Fol: No Subjective Review of Systems: RESPIRATORY:Abnormal Other Systems: Patient seen and examined by myself today in follow-up Patient examined hemodialysis, blood pressure stable Objective vital signs Vital Sign Date Time Temp Pulse Resp B/P (MAP) Pulse Ox O2 Delivery O2 Flow Rate FiO2 08/07/24 05:00 97.9 80 18 121/58 (79) 98 97.9 08/06/24 22:19 Nasal Cannula* 2 28 Total Intake and Output 08/06/24 08/06/24 08/07/24 15:00 23:00 07:00 Intake Total 300 ml 50 ml 150 ml Output Total 0 ml Balance 300 ml 50 ml 150 ml medications Current Medications Medications Dose Ordered Sig/Cameron Route Start Time Stop Time Status Last Admin Dose Admin Sodium Chloride 10 ml Q8HR IV 08/05/24 22:00 08/07/24 06:17 10 ML Morphine Sulfate 2 mg Q4HPRN PRN IV 08/05/24 21:30 08/06/24 18:47 2 MG Vancomycin HCl 0 ml @ 0 mls/hr UD IV 08/06/24 07:15 Cefepime HCl 50 ml @ 12.5 mls/hr DAILY IV 08/06/24 10:00 08/06/24 14:50 12.5 MLS/HR Acetaminophen 650 mg TID PO 08/06/24 14:00 08/07/24 06:17 650 MG Examination: LUNGS:Normal, CVS:Normal, MSK:Normal laboratory and microbiology Laboratory Tests 08/07/24 07:43 Test 08/07/24 07:43 Range/Units Serum Glucose 82 74-106 mg/dL Microbiology Date/Time Source Procedure Growth Status 08/05/24 16:17 Blood Blood Culture - Preliminary Resulted Problem List/Assessment/Plan Problem List/Assessment/Plan ESRD on hemodialysis Acute hypoxic respiratory failure, high flow oxygen Congestive heart failure exacerbation, ejection fraction 40% Sepsis secondary to pneumonia--- Hypertension Recommendations Continue with UF 1-2 L as tolerated Epogen IV with hemodialysis Renally dose antibiotics to dialysis dosing Septic work up- follow blood cx Renal diet We will continue to follow up Plan discussed with: Patient RICARDO ENCINAS MD Aug 07, 2024 09:19
[2024-08-07] MEDS: CEFEPIME 1GM/ 50ML 50 ML IV ONE (09:38)
[2024-08-07] MEDS: ALBUMIN 25% 50 ML IV ONE ×2 (11:47→11:49)
[2024-08-07] MEDS: MIDODRINE HCL 10 MG TAB PO SCH (11:50)
[2024-08-07] MEDS: VANCOMYCIN 750MG KIT 100 ML IV ONE (17:36)
--- NOTE | 2024-08-07 20:15 | DVHPNRES ---
Progress Note Date Seen: Aug 07, 2024 Resident Creating Document: MICHELLE GOODEN RESIDENT Medical Necessity Reason Pt with a Central, PICC or Fol: No Subjective Review of Systems Patient is a 59-year-old male with past medical history of ESRD on HD Saturday, autosomal dominant polycystic kidney disease, CVA x4 with residual left-sided weakness, dyslipidemia, hypertension, cataract with partial vision loss, chronic fractures, who came in due to shortness of breath. According to the patient, for the past 2 weeks he has been experiencing shortness of breaths and left shoulder pain secondary to a fall he sustained 2 weeks ago and fractured his left-sided ribs, multiple and left shoulder. Per patient, he has been having shortness of breaths for the last 2 weeks as breathing hurts his ribs. Patient is on hemodialysis via a left chest wall catheter, patient has not old right arm fistula which is nonfunctional. Chest x-ray showed bibasilar areas of airspace disease accompanying atelectasis in the left base. Past surgical history: Port-A-Cath Past Hospitalization: 1 month ago for shortness of breath Social & Personal history: Patient lives with daughter. Quit smoking 3 years ago, prior to that was smoking half a pack per day for 10 years. Denies using alcohol. Denies using drugs. Allergies: Codeine Patient seen and examined at bedside. Patient is alert and oriented to time, place person and responding to all questions. Objective vital signs Vital Sign Date Time Temp Pulse Resp B/P (MAP) Pulse Ox O2 Delivery O2 Flow Rate FiO2 08/07/24 17:36 87 97/64 (75) 08/07/24 16:05 98.3 17 98 98.3 08/07/24 08:00 Nasal Cannula* 2 28 Total Intake and Output 08/06/24 08/06/24 08/07/24 15:00 23:00 07:00 Intake Total 300 ml 50 ml 150 ml Output Total 0 ml Balance 300 ml 50 ml 150 ml medications Current Medications Medications Dose Ordered Sig/Cameron Route Start Time Stop Time Status Last Admin Dose Admin Sodium Chloride 10 ml Q8HR IV 08/05/24 22:00 08/07/24 14:00 10 ML Morphine Sulfate 2 mg Q4HPRN PRN IV 08/05/24 21:30 08/06/24 18:47 2 MG Vancomycin HCl 0 ml @ 0 mls/hr UD IV 08/06/24 07:15 Cefepime HCl 50 ml @ 12.5 mls/hr DAILY IV 08/06/24 10:00 08/06/24 14:50 12.5 MLS/HR Acetaminophen 650 mg TID PO 08/06/24 14:00 08/07/24 14:00 650 MG Midodrine 10 mg TID@0600,1200,1800 PO 08/07/24 12:00 08/07/24 17:36 10 MG Examination General Appearance: Cooperative. Dry mucous membranes. NAD Head Exam: Normal inspection Neck Exam: Normal inspection. Non-tender. Normal alignment Pulmonary/Respiratory: Chest non-tender. Clear bilateral breath sounds, no crackles, no wheezing. Cardiovascular/Chest: Regular rate and rhythm. No murmurs. No JVD. Abdominal Exam: Normal bowel sounds. Soft. normal abdomen, no visible veins, Nontender. No hepatospenomegaly. No masses Ankle Exam: Negative ankle edema Upper extremities: Decreased movement in the left upper extremity due to pain Lower extremities: Negative lower extremity edema Neuro/Mental Status: A&O x4. Coherent. Thoughts/Psych: Normal thought pattern. Appropriate mood and affect. Good judgement and insight Skin Exam: Normal inspection. Normal color. Warm. Dry laboratory and microbiology Laboratory Tests 08/07/24 07:43 Test 08/07/24 07:43 Range/Units Serum Glucose 82 74-106 mg/dL Microbiology Date/Time Source Procedure Growth Status 08/06/24 23:50 Nose MRSA Screen - Final Complete 08/05/24 16:17 Blood Blood Culture - Preliminary Resulted Labs and/or images reviewed: Labs reviewed by me, Image(s) reviewed by me Problem List/Assessment/Plan Problem List/Assessment/Plan Community-acquired pneumonia, Gram-positive versus Gram-negative Sepsis due to above Ruled out DVT - CXR: Bibasilar areas of airspace disease with a accompanying atelectasis in the left base. - lower extremity Doppler: No right or left femoropopliteal venous thrombosis. - IV vancomycin, IV cefepime - midodrine 10 mg t.i.d. - IV albumin ESRD on hemodialysis Saturday, Saturday and Saturday History of polycystic kidney disease Coagulopathy due to above? Hematuria - nephrology consulted - currently holding patient's home dose Eliquis as INR currently >2 Left shoulder chronic fracture Left 4 through 7 rib fracture - acetaminophen 650 mg p.o. t.i.d. - IV morphine 2 mg q.4 hours as needed for severe pain Hypertension Dyslipidemia - monitor Goals of care: Full code, discussed for >16 minutes on 08/06/2024 Plan discussed with patient Plan discussed with Dr. Tipton Plan discussed with: Patient, Other (RN) Date of Service: Aug 07, 2024 Billing Provider: RONNI TIPTON MD Common Visit Codes: [id number] INP/OBS CARE(HIGH) MICHELLE GOODEN RESIDENT Aug 07, 2024 20:15 RONNI TIPTON MD Aug 17, 2024 12:44
[2024-08-08] VITALS (9 sets, daily range): BP systolic 83–123; BP diastolic 38–55; PULSE 75–84; RESP 16–20; TEMP 98–98.3; O2SAT 93–100
[2024-08-08 06:43] LABS: Chloride 99 mmol/L (98-107); Potassium 3.6 mmol/L (3.5-5.1); Sodium 137 mmol/L (136-145)
[2024-08-08 06:44] LABS: Anion Gap 9 (5-15); Carbon Dioxide 29 mmol/L (20-31)
[2024-08-08 06:47] LABS: Basophils # (auto) 0.1 10 ^3/uL (0-0.2); Basophils % (auto) 0.5 % (0.0-2.0); Eosinophils # (auto) 0.3 10 ^3/uL (0-0.8); Eosinophils % (auto) 1.8 % (0.0-7.0); Hemoglobin 10.2 g/dL (13.5-17.5); Lymphocytes # (auto) 1.1 10 ^3/uL (0.4-5.4); Mean Corpuscular Hemoglobin 28.1 pg (28.0-32.0); Mean Corpuscular Volume 90.5 fL (80.0-100.0); Monocytes # (auto) 1.4 10 ^3/uL (0-1.3); Monocytes % (auto) 8.8 % (0.0-12.0); Neutrophils # (auto) 13.3 10 ^3/uL (1.6-8.6); Neutrophils % (auto) 81.9 % (37.0-80.0); Platelet Count (auto) 154 10^3/uL (140-450); Red Blood Cells 3.65 10^6/uL (4.5-5.90); Red Cell Distribution Width 18.8 % (11.8-14.3); White Blood Cell 16.2 10^3/uL (4.4-10.8)
[2024-08-08 06:49] LABS: BUN/Creatinine Ratio 5.8 (10.0-20.0); Glucose 85 mg/dL (74-106)
[2024-08-08 06:52] LABS: Blood Urea Nitrogen 28 mg/dL (9-23); Calcium 7.8 mg/dL (8.7-10.4)
--- NOTE | 2024-08-08 09:14 | DVHPN2 ---
Progress Note Date Seen: Aug 08, 2024 Medical Necessity Reason Pt with a Central, PICC or Fol: No Subjective Patient reports: No new complaints Other Systems: Patient seen and examined by myself today in follow-up Objective vital signs Vital Sign Date Time Temp Pulse Resp B/P (MAP) Pulse Ox O2 Delivery O2 Flow Rate FiO2 08/08/24 05:00 98.3 84 20 107/42 (63) 100 98.3 08/07/24 20:00 Nasal Cannula* 2 28 Total Intake and Output 08/07/24 08/07/24 08/08/24 15:00 23:00 07:00 Intake Total 450 ml 800 ml Balance 450 ml 800 ml medications Current Medications Medications Dose Ordered Sig/Cameron Route Start Time Stop Time Status Last Admin Dose Admin Sodium Chloride 10 ml Q8HR IV 08/05/24 22:00 08/07/24 21:48 10 ML Morphine Sulfate 2 mg Q4HPRN PRN IV 08/05/24 21:30 08/06/24 18:47 2 MG Vancomycin HCl 0 ml @ 0 mls/hr UD IV 08/06/24 07:15 Cefepime HCl 50 ml @ 12.5 mls/hr DAILY IV 08/06/24 10:00 08/06/24 14:50 12.5 MLS/HR Acetaminophen 650 mg TID PO 08/06/24 14:00 08/08/24 06:19 650 MG Midodrine 10 mg TID@0600,1200,1800 PO 08/07/24 12:00 08/08/24 06:19 10 MG Examination: LUNGS:Normal, CVS:Normal, MSK:Normal laboratory and microbiology Laboratory Tests 08/08/24 05:20 Test 08/08/24 05:20 Range/Units Serum Glucose 85 74-106 mg/dL Microbiology Date/Time Source Procedure Growth Status 08/06/24 23:50 Nose MRSA Screen - Final Complete 08/05/24 16:17 Blood Blood Culture - Preliminary Resulted Problem List/Assessment/Plan Problem List/Assessment/Plan ESRD on hemodialysis Acute hypoxic respiratory failure, requiring O2 therapy Congestive heart failure exacerbation, ejection fraction 40% Sepsis secondary to pneumonia--- Hypotension Anemia of chronic kidney disease Recommendations Next hemodialysis 08/10 Epogen 4000 IV with hemodialysis Epogen IV with hemodialysis Fluid restrictions Midodrine for blood pressure support Renal diet We will continue to follow up Plan discussed with: Patient My Orders My Orders Orders - RICARDO ENCINAS MD Procedure Category Date Status Time Midodrine Tablet PHA 08/07/24 In Process (Proamatine Tablet) 12:00 RICARDO ENCINAS MD Aug 08, 2024 09:14
--- NOTE | 2024-08-08 13:34 | DVHPNRES ---
Progress Note Date Seen: Aug 08, 2024 Resident Creating Document: MICHELLE GOODEN RESIDENT Medical Necessity Reason Pt with a Central, PICC or Fol: No Subjective Review of Systems Patient is a 59-year-old male with past medical history of ESRD on HD Saturday, autosomal dominant polycystic kidney disease, CVA x4 with residual left-sided weakness, dyslipidemia, hypertension, cataract with partial vision loss, chronic fractures, who came in due to shortness of breath. According to the patient, for the past 2 weeks he has been experiencing shortness of breaths and left shoulder pain secondary to a fall he sustained 2 weeks ago and fractured his left-sided ribs, multiple and left shoulder. Per patient, he has been having shortness of breaths for the last 2 weeks as breathing hurts his ribs. Patient is on hemodialysis via a left chest wall catheter, patient has not old right arm fistula which is nonfunctional. Chest x-ray showed bibasilar areas of airspace disease accompanying atelectasis in the left base. Past surgical history: Port-A-Cath Past Hospitalization: 1 month ago for shortness of breath Social & Personal history: Patient lives with daughter. Quit smoking 3 years ago, prior to that was smoking half a pack per day for 10 years. Denies using alcohol. Denies using drugs. Allergies: Codeine Patient seen and examined at bedside. Patient is alert and oriented to time, place person and responding to all questions. Reports increasing cough, we will order repeat CXR. 1+ ankle edema noted. Currently on 3 L of oxygen. We will repeat blood cultures today. Objective vital signs Vital Sign Date Time Temp Pulse Resp B/P (MAP) Pulse Ox O2 Delivery O2 Flow Rate FiO2 08/08/24 08:05 98.1 82 18 97/45 (62) 95 98.1 08/08/24 08:00 Nasal Cannula* 3 32 Total Intake and Output 08/07/24 08/07/24 08/08/24 15:00 23:00 07:00 Intake Total 450 ml 800 ml Balance 450 ml 800 ml medications Current Medications Medications Dose Ordered Sig/Cameron Route Start Time Stop Time Status Last Admin Dose Admin Sodium Chloride 10 ml Q8HR IV 08/05/24 22:00 08/08/24 13:15 10 ML Morphine Sulfate 2 mg Q4HPRN PRN IV 08/05/24 21:30 08/06/24 18:47 2 MG Vancomycin HCl 0 ml @ 0 mls/hr UD IV 08/06/24 07:15 Cefepime HCl 50 ml @ 12.5 mls/hr DAILY IV 08/06/24 10:00 08/08/24 09:44 12.5 MLS/HR Acetaminophen 650 mg TID PO 08/06/24 14:00 08/08/24 06:19 650 MG Midodrine 10 mg TID@0600,1200,1800 PO 08/07/24 12:00 08/08/24 13:15 10 MG Examination General Appearance: Cooperative. Dry mucous membranes. NAD Head Exam: Normal inspection Neck Exam: Normal inspection. Non-tender. Normal alignment Pulmonary/Respiratory: Chest non-tender. Clear bilateral breath sounds, no crackles, no wheezing. Cardiovascular/Chest: Regular rate and rhythm. No murmurs. No JVD. Abdominal Exam: Normal bowel sounds. Soft. normal abdomen, no visible veins, Nontender. No hepatospenomegaly. No masses Ankle Exam: Negative ankle edema Upper extremities: Decreased movement in the left upper extremity and left lower extremity Lower extremities: Negative lower extremity edema Neuro/Mental Status: A&O x4. Coherent. Thoughts/Psych: Normal thought pattern. Appropriate mood and affect. Good judgement and insight Skin Exam: Normal inspection. Normal color. Warm. Dry laboratory and microbiology Laboratory Tests 08/08/24 05:20 Test 08/08/24 05:20 Range/Units Serum Glucose 85 74-106 mg/dL Microbiology Date/Time Source Procedure Growth Status 08/06/24 23:50 Nose MRSA Screen - Final Complete 08/05/24 16:17 Blood Blood Culture - Preliminary Resulted Labs and/or images reviewed: Labs reviewed by me, Image(s) reviewed by me Problem List/Assessment/Plan Problem List/Assessment/Plan Community-acquired pneumonia, Gram-positive versus Gram-negative Sepsis due to above Bacteremia with blood culture growing Gram-positive cocci Ruled out DVT - CXR: Bibasilar areas of airspace disease with a accompanying atelectasis in the left base. - lower extremity Doppler: No right or left femoropopliteal venous thrombosis. - IV vancomycin, IV cefepime - midodrine 10 mg t.i.d. - IV albumin - blood culture + for Staph hominis sensitive to vancomycin - ordered repeat blood cultures - ordered repeat chest x-ray ESRD on hemodialysis Saturday, Saturday and Saturday History of polycystic kidney disease Coagulopathy due to above? Hematuria - nephrology consulted - currently holding patient's home dose Eliquis as INR currently >2 Left shoulder chronic fracture Left 4 through 7 rib fracture - acetaminophen 650 mg p.o. t.i.d. - IV morphine 2 mg q.4 hours as needed for severe pain Hypertension Dyslipidemia - monitor Goals of care: Full code, discussed for >16 minutes on 08/06/2024 Plan discussed with patient Plan discussed with Dr. Larkin Plan discussed with: Patient, Other (RN) My Orders My Orders Orders - MICHELLE GOODEN RESIDENT Procedure Category Date Status Time Chest Portable XY 08/08/24 Logged 13:19 Blood Culture MARBELLA 08/08/24 Verified 13:31 MICHELLE GOODEN RESIDENT Aug 08, 2024 13:34
--- NOTE | 2024-08-08 15:31 | DVH ---
CHEST RADIOGRAPH Indication: worsening cough Technique: Single frontal view of the chest was obtained Comparison: XY CHEST PORTABLE on DOS: 08/05/24, XY CHEST XRAY 1 VIEW on DOS: 05/27/24, XY CHEST XRAY 1 VIEW on DOS: 08/05/23 FINDINGS: Lines and Tubes: Left internal jugular catheter in place in the right atrium unchanged from prior mellisa dy. Lungs: Bilateral perihilar peribronchial thickening is noted. Pleura: No effusion. No pneumothorax. Cardiomediastinal contours: Cardiomegaly Bones: No acute osseous abnormality. IMPRESSION: 1. Worsening bilateral perihilar peribronchial thickening and right lower lobe airspace disease and a telectasis.
[2024-08-09] VITALS (13 sets, daily range): BP systolic 100–120; BP diastolic 27–77; PULSE 66–86; RESP 16–18; TEMP 97.3–98.6; O2SAT 92–100
[2024-08-09 05:32] LABS: Basophils # (auto) 0.2 10 ^3/uL (0-0.2); Basophils % (auto) 1.2 % (0.0-2.0); Eosinophils # (auto) 0.4 10 ^3/uL (0-0.8); Eosinophils % (auto) 1.8 % (0.0-7.0); Hematocrit 32.3 % (41.0-53.0); Hemoglobin 10.2 g/dL (13.5-17.5); Lymphocytes # (auto) 1.6 10 ^3/uL (0.4-5.4); Lymphocytes % (auto) 8.2 % (10.0-50.0); Mean Corpuscular Hemoglobin 28.5 pg (28.0-32.0); Mean Corpuscular Hgb Conc. 31.7 g/dL (32.0-36.0); Mean Corpuscular Volume 89.8 fL (80.0-100.0); Monocytes # (auto) 1.9 10 ^3/uL (0-1.3); Monocytes % (auto) 9.9 % (0.0-12.0); Neutrophils # (auto) 15.1 10 ^3/uL (1.6-8.6); Neutrophils % (auto) 78.9 % (37.0-80.0); Nucleated Red Blood Cells % 0.1 %; Platelet Count (auto) 174 10^3/uL (140-450); Red Blood Cells 3.59 10^6/uL (4.5-5.90); Red Cell Distribution Width 18.9 % (11.8-14.3); White Blood Cell 19.2 10^3/uL (4.4-10.8)
[2024-08-09 05:48] LABS: Anion Gap 10 (5-15); Carbon Dioxide 27 mmol/L (20-31); Chloride 99 mmol/L (98-107); Potassium 3.7 mmol/L (3.5-5.1)
[2024-08-09 05:54] LABS: BUN/Creatinine Ratio 6.3 (10.0-20.0); Glucose 88 mg/dL (74-106)
[2024-08-09 06:00] LABS: Blood Urea Nitrogen 39 mg/dL (9-23); Sodium 136 mmol/L (136-145)
[2024-08-09] MEDS: HYDROcodone-ACET 5/325MG TAB PO PRN (09:36)
--- NOTE | 2024-08-09 11:09 | DVHPN2 ---
Progress Note Date Seen: Aug 09, 2024 Medical Necessity Reason Pt with a Central, PICC or Fol: No Subjective Patient reports: No new complaints Other Systems: Patient seen and examined by myself today in follow-up Objective vital signs Vital Sign Date Time Temp Pulse Resp B/P (MAP) Pulse Ox O2 Delivery O2 Flow Rate FiO2 08/09/24 09:00 97.8 74 16 104/28 (53) 92 97.8 08/08/24 22:00 Nasal Cannula* 2 28 Total Intake and Output 08/08/24 08/08/24 08/09/24 15:00 23:00 07:00 Intake Total 50 ml 750 ml 800 ml Balance 50 ml 750 ml 800 ml medications Current Medications Medications Dose Ordered Sig/Cameron Route Start Time Stop Time Status Last Admin Dose Admin Sodium Chloride 10 ml Q8HR IV 08/05/24 22:00 08/09/24 06:29 10 ML Morphine Sulfate 2 mg Q4HPRN PRN IV 08/05/24 21:30 08/06/24 18:47 2 MG Vancomycin HCl 0 ml @ 0 mls/hr UD IV 08/06/24 07:15 Acetaminophen 650 mg TID PO 08/06/24 14:00 08/09/24 06:17 650 MG Midodrine 10 mg TID@0600,1200,1800 PO 08/07/24 12:00 08/09/24 06:17 10 MG Acetaminophen/ Hydrocodone Bitart 1 tab Q4HPRN PRN PO 08/09/24 08:45 08/09/24 09:36 1 TAB Meropenem 50 ml @ 17 mls/hr Q8HR IV 08/09/24 12:00 08/09/24 13:59 Meropenem 50 ml @ 17 mls/hr HS IV 08/09/24 22:00 Examination: LUNGS:Normal, CVS:Normal, MSK:Normal laboratory and microbiology Laboratory Tests 08/09/24 05:03 Test 08/09/24 05:03 Range/Units Serum Glucose 88 74-106 mg/dL Microbiology Date/Time Source Procedure Growth Status 08/06/24 23:50 Nose MRSA Screen - Final Complete 08/05/24 16:17 Blood Blood Culture - Final Staph hominis subsp homins Complete Problem List/Assessment/Plan Problem List/Assessment/Plan ESRD on hemodialysis Acute hypoxic respiratory failure, requiring O2 therapy Congestive heart failure exacerbation, ejection fraction 40% Sepsis staph bacteremia Hypotension Anemia of chronic kidney disease Recommendations Dialysis tomorrow Epogen 4000 IV with hemodialysis Epogen IV with hemodialysis Fluid restrictions Midodrine for blood pressure support Renal diet ID consult We will continue to follow up Plan discussed with: Patient RICARDO ENCINAS MD Aug 09, 2024 11:09
[2024-08-09] MEDS: MEROPENEM 1GM IVPB 50 ML IV SCH (12:34)
[2024-08-09] MEDS: LEVALBUTEROL HCL 1.25 MG/3 ML NEB NEB ONE (15:38)
[2024-08-09] MEDS: ACETYLCYSTEINE 20%(200MG/ML) SOL 4ML NEB ONE (15:39)
[2024-08-09] MEDS: VANCOMYCIN 500mg/100mL 100 ML IV ONE (17:00)
--- NOTE | 2024-08-09 17:04 | DVHPNRES ---
Progress Note Date Seen: Aug 09, 2024 Resident Creating Document: LANA HOPKINS RESIDENT Medical Necessity Reason Pt with a Central, PICC or Fol: No Subjective Review of Systems Ryder Gamez is a 59-year-old male who presents to ED with chief complaint of progressive dyspnea which started two days before his admission from functional class II to functional class IV. He also complains of left shoulder pain secondary to a fall he sustained 2 weeks ago and fractured his left-sided ribs, multiple and left shoulder. P patient believes he is short of breath due to pain from breathing due to multiple fractures. Patient is on hemodialysis via a left tunneled hemodialysis catheter, patient does have an AV fistula on right arm which thrills (only 1-month-old). Denies any other associated symptoms Past medical history: Dyslipidemia, hypertension, end-stage renal disease secondary to autosomal dominant polycystic kidney disease (on hemodialysis Saturday/Saturday/Saturday), CVA x4 with a residual left-sided weakness, cataract with partial vision loss, chronic fractures of ribs and clavicle. Past surgical history: Placement of tunnel hemodialysis catheter, right AV fistula (has not been used yet, 1-month-old) Family history: Patient lives with daughter. Quit smoking 3 years ago (5 pack- year history of smoking). Denies current tobacco, alcohol and other drug abuse. Allergies: Codeine Home medication: Aspirin 81 mg p.o. daily, atorvastatin 40 mg p.o. daily, cinacalcet 60 mg p.o. daily, clopidogrel 75 mg p.o. daily, ferric citrate, hydrocodone, omeprazole 20 mg p.o. daily, sevelamer. Patient seen and examined at bedside. Patient presented leukocytosis, completed new blood cultures on 08/08/2024. Have switch cefepime to meropenem to cover Pseudomonas. Ordered sputum culture with induction of sputum. Objective vital signs Vital Sign Date Time Temp Pulse Resp B/P (MAP) Pulse Ox O2 Delivery O2 Flow Rate FiO2 08/09/24 15:47 69 18 100 08/09/24 15:39 Nasal Cannula 2.0 08/09/24 15:39 28 08/09/24 13:00 97.4 112/27 (55) 97.4 Total Intake and Output 08/08/24 08/08/24 08/09/24 15:00 23:00 07:00 Intake Total 50 ml 750 ml 800 ml Balance 50 ml 750 ml 800 ml medications Current Medications Medications Dose Ordered Sig/Cameron Route Start Time Stop Time Status Last Admin Dose Admin Sodium Chloride 10 ml Q8HR IV 08/05/24 22:00 08/09/24 14:00 10 ML Morphine Sulfate 2 mg Q4HPRN PRN IV 08/05/24 21:30 08/06/24 18:47 2 MG Vancomycin HCl 0 ml @ 0 mls/hr UD IV 08/06/24 07:15 Acetaminophen 650 mg TID PO 08/06/24 14:00 08/09/24 15:18 650 MG Midodrine 10 mg TID@0600,1200,1800 PO 08/07/24 12:00 08/09/24 12:34 10 MG Acetaminophen/ Hydrocodone Bitart 1 tab Q4HPRN PRN PO 08/09/24 08:45 08/09/24 09:36 1 TAB Meropenem 50 ml @ 17 mls/hr HS IV 08/09/24 22:00 Levalbuterol HCl 0.625 mg Q6HR NEB 08/09/24 18:00 Ipratropium [place] 0.5 mg Q6HR NEB 08/09/24 18:00 Examination Patient lying in bed, in no acute distress General: Lucid, afebrile, mucosae are moist Cardiovascular: Normal S1 and S2. No murmurs, gallops or rubs Respiratory: Regular ventilation mechanics, tachypneic. Bilateral rhonchus predominantly in bases, rest of lung auscultation is clear. Currently on nasal cannula 3 liters/minute. Abdomen: Soft, nontender, no organomegaly, normal bowel sounds MSK/skin: Mobilizes 4 limbs. Skin is dry and warm. AV fistula on right arm with thrill, normal functioning. Has subclavian tunneled hemodialysis catheter, no signs of infection. Neurological: Oriented in 3 spheres. No motor no sensitive deficits. Pupils are isocoric and reactive laboratory and microbiology Laboratory Tests 08/09/24 05:03 Test 08/09/24 05:03 Range/Units Serum Glucose 88 74-106 mg/dL Microbiology Date/Time Source Procedure Growth Status 08/08/24 14:38 Blood Blood Culture - Preliminary NO GROWTH AFTER 24 HOURS OF INCUBATION. Resulted 08/06/24 23:50 Nose MRSA Screen - Final Complete Problem List/Assessment/Plan Problem List/Assessment/Plan # Sepsis secondary to community-acquired pneumonia Patient is currently under empiric IV antibiotic (meropenem and vancomycin, previously on cefepime) Ordered cates culture # Community-acquired pneumonia, Gram-positive versus Gram-negative Currently on oxygen therapy, bronchodilators and empiric IV antibiotic Ordered cates culture. Had to induced sputum to obtain sputum sample. CXR: Bibasilar areas of airspace disease with a accompanying atelectasis in the left base. # Bacteremia with blood culture growing Gram-positive cocci Blood culture 1/2 positive for Staphylococcus hominis (probable contaminant). Have ordered new blood cultures on 08/08/2024. # Ruled out DVT Lower extremity Doppler: No right or left femoropopliteal venous thrombosis. # ESRD secondary to autosomal dominant polycystic kidney disease on hemodialysis Saturday, Saturday and Saturday Strict I&Os Nephrology consulted: Recommend p.o. midodrine to support kidney function and IV albumin # Coagulopathy due to above - Hematuria Currently holding patient's home dose Eliquis. On admission INR >2, ordered new INR Patient is receiving heparin with hemodialysis session. # chronic pain secondary to left clavicular fracture and left 4th and seven rib fracture after mechanical fall in patient with ESRD Acetaminophen 650 mg p.o. t.i.d. IV morphine 2 mg q.4 hours as needed for severe pain Hypertension Patient is currently with soft blood pressure, currently on midodrine p.o. Gave advice on healthy lifestyle habits Dyslipidemia Continue home medication Gave advice on healthy lifestyle habits Goals of care discussed with patient for over 18 minutes: Full code status Discussed plan with Dr. Larkin, patient and nurses: Patient has worsening leukocytosis, still requires oxygen therapy through nasal cannula, optimize bronchodilator treatment, indicated incentive spirometer and switch cefepime for meropenem. Awaiting results of new sputum and blood culture. Appreciate input from Nephrology. Patient has poor prognosis. Plan discussed with: Patient, Other (Nurses) My Orders My Orders Orders - LANA HOPKINS RESIDENT Procedure Category Date Status Time Urine Bacterial MARBELLA 08/09/24 Logged Culture 10:12 Sputum Induction RT 08/09/24 Logged 10:12 Respiratory Culture MARBELLA 08/09/24 In Process W/ Gs 10:12 Meropenem 500mg Ivpb PHA 08/09/24 In Process (Merrem 500mg/Ns) 22:00 Vancomycin 500mg/100ml PHA 08/09/24 In Process 17:00 Vancomycin Per NELLIE 08/09/24 In Process Pharmacy Protoc 11:33 Vancomycin,Random LAB 08/10/24 Verified 04:00 Levalbuterol Hcl PHA 08/09/24 In Process (Xopenex Medneb) 18:00 Ipratropium Medneb PHA 08/09/24 In Process (Atrovent Medneb) 18:00 LANA HOPKINS RESIDENT Aug 09, 2024 17:04
[2024-08-09] MEDS: IPRATROPIUM BROM 0.5 MG/2.5ML INH SOL NEB SCH (18:25)
[2024-08-09] MEDS: LEVALBUTEROL HCL 1.25 MG/3 ML NEB NEB SCH (18:25)
[2024-08-09] MEDS: MEROPENEM 500MG IVPB 50 ML IV SCH (22:44)
[2024-08-10] VITALS (17 sets, daily range): BP systolic 125–150; BP diastolic 45–79; PULSE 71–108; RESP 16–20; TEMP 97.3–98.5; O2SAT 91–100
[2024-08-10 06:13] LABS: Basophils # (auto) 0.1 10 ^3/uL (0-0.2); Basophils % (auto) 0.7 % (0.0-2.0); Eosinophils # (auto) 0.4 10 ^3/uL (0-0.8); Eosinophils % (auto) 2.9 % (0.0-7.0); Hematocrit 34.6 % (41.0-53.0); Hemoglobin 10.6 g/dL (13.5-17.5); Lymphocytes # (auto) 1.4 10 ^3/uL (0.4-5.4); Lymphocytes % (auto) 9.3 % (10.0-50.0); Mean Corpuscular Hemoglobin 27.9 pg (28.0-32.0); Mean Corpuscular Hgb Conc. 30.7 g/dL (32.0-36.0); Mean Corpuscular Volume 90.9 fL (80.0-100.0); Monocytes # (auto) 1.5 10 ^3/uL (0-1.3); Monocytes % (auto) 9.9 % (0.0-12.0); Neutrophils # (auto) 11.6 10 ^3/uL (1.6-8.6); Neutrophils % (auto) 77.2 % (37.0-80.0); Nucleated Red Blood Cells % 0.2 %; Platelet Count (auto) 165 10^3/uL (140-450); Red Blood Cells 3.81 10^6/uL (4.5-5.90); Red Cell Distribution Width 19.1 % (11.8-14.3)
[2024-08-10 06:28] LABS: INR 1.46 (0.9-1.15); Partial Thromboplastin Time 32.4 SEC (24.5-34.5); Prothrombin Time 14.9 sec (9.3-11.8)
[2024-08-10 06:29] LABS: Anion Gap 11 (5-15); Aspartate Aminotransferase 19 U/L (13-40); BUN/Creatinine Ratio 6.8 (10.0-20.0); Carbon Dioxide 26 mmol/L (20-31); Chloride 100 mmol/L (98-107); Glucose 85 mg/dL (74-106); Magnesium 2.2 mg/dL (1.6-2.6); Sodium 137 mmol/L (136-145)
[2024-08-10 06:30] LABS: Bilirubin, Total 0.6 mg/dL (0.2-1.0); Total Protein 5.8 g/dL (5.7-8.2)
[2024-08-10 06:34] LABS: Alanine Aminotransferase < 9 U/L (7-40); Albumin 2.5 g/dL (3.2-4.8); Alkaline Phosphatase 133 U/L (46-116); Blood Urea Nitrogen 53 mg/dL (9-23); Calcium 7.9 mg/dL (8.7-10.4); Phosphorus 5.5 mg/dL (2.4-5.1)
--- NOTE | 2024-08-10 11:33 | DVHPN2 ---
Progress Note Date Seen: Aug 10, 2024 Medical Necessity Reason Pt with a Central, PICC or Fol: No Objective vital signs Vital Sign Date Time Temp Pulse Resp B/P (MAP) Pulse Ox O2 Delivery O2 Flow Rate FiO2 08/10/24 10:11 92 Nasal Cannula 2.0 08/10/24 10:11 28 08/10/24 09:00 97.3 75 19 125/69 (87) 97.3 Total Intake and Output 08/09/24 08/09/24 08/10/24 15:00 23:00 07:00 Intake Total 37.5 ml 650 ml 190 ml Balance 37.5 ml 650 ml 190 ml medications Current Medications Medications Dose Ordered Sig/Cameron Route Start Time Stop Time Status Last Admin Dose Admin Sodium Chloride 10 ml Q8HR IV 08/05/24 22:00 08/10/24 05:35 10 ML Morphine Sulfate 2 mg Q4HPRN PRN IV 08/05/24 21:30 08/06/24 18:47 2 MG Vancomycin HCl 0 ml @ 0 mls/hr UD IV 08/06/24 07:15 Acetaminophen 650 mg TID PO 08/06/24 14:00 08/10/24 06:23 650 MG Midodrine 10 mg TID@0600,1200,1800 PO 08/07/24 12:00 08/09/24 17:53 10 MG Acetaminophen/ Hydrocodone Bitart 1 tab Q4HPRN PRN PO 08/09/24 08:45 08/10/24 02:33 1 TAB Meropenem 50 ml @ 17 mls/hr HS IV 08/09/24 22:00 08/09/24 22:44 17 MLS/HR Levalbuterol HCl 0.625 mg Q6HR NEB 08/09/24 18:00 08/10/24 07:23 0.625 MG Ipratropium [place] 0.5 mg Q6HR NEB 08/09/24 18:00 08/10/24 07:23 0.5 MG Examination: GENERAL:Abnormal, CVS:Normal laboratory and microbiology Laboratory Tests 08/10/24 05:41 Test 08/10/24 05:41 Range/Units Serum Glucose 85 74-106 mg/dL Microbiology Date/Time Source Procedure Growth Status 08/08/24 14:38 Blood Blood Culture - Preliminary NO GROWTH AFTER 24 HOURS OF INCUBATION. Resulted 08/06/24 23:50 Nose MRSA Screen - Final Complete Problem List/Assessment/Plan Problem List/Assessment/Plan ESRD on hemodialysis Acute hypoxic respiratory failure, requiring O2 therapy Congestive heart failure exacerbation, ejection fraction 40% Sepsis staph bacteremia Anemia of chronic kidney disease Dialysis Epogen 4000 IV with hemodialysis Fluid restrictions Midodrine for blood pressure support Renal diet ID , vancomycin and merrem ordered Plan discussed with: Patient LUDIVINA TABARES MD Aug 10, 2024 11:33
--- NOTE | 2024-08-10 11:55 | DVHPNRES ---
Progress Note Date Seen: Aug 10, 2024 Resident Creating Document: MICHELLE GOODEN RESIDENT Medical Necessity Reason Pt with a Central, PICC or Fol: No Subjective Review of Systems Patient is a 59-year-old male with past medical history of ESRD on HD Saturday, autosomal dominant polycystic kidney disease, CVA x4 with residual left-sided weakness, dyslipidemia, hypertension, cataract with partial vision loss, chronic fractures, who came in due to shortness of breath. According to the patient, for the past 2 weeks he has been experiencing shortness of breaths and left shoulder pain secondary to a fall he sustained 2 weeks ago and fractured his left-sided ribs, multiple and left shoulder. Per patient, he has been having shortness of breaths for the last 2 weeks as breathing hurts his ribs. Patient is on hemodialysis via a left chest wall catheter, patient has not old right arm fistula which is nonfunctional. Chest x-ray showed bibasilar areas of airspace disease accompanying atelectasis in the left base. Past surgical history: Port-A-Cath Past Hospitalization: 1 month ago for shortness of breath Social & Personal history: Patient lives with daughter. Quit smoking 3 years ago, prior to that was smoking half a pack per day for 10 years. Denies using alcohol. Denies using drugs. Allergies: Codeine Patient seen and examined at bedside. Patient is alert and oriented to time, place person and responding to all questions. Reports increasing cough, we will order repeat CXR. 1+ ankle edema noted. Currently on 3 L of oxygen. Per patient's daughter at bedside, patient has been more confused than baseline. Head CT without contrast was ordered, we will follow the results. Objective vital signs Vital Sign Date Time Temp Pulse Resp B/P (MAP) Pulse Ox O2 Delivery O2 Flow Rate FiO2 08/10/24 10:11 92 Nasal Cannula 2.0 08/10/24 10:11 28 08/10/24 09:00 97.3 75 19 125/69 (87) 97.3 Total Intake and Output 08/09/24 08/09/24 08/10/24 15:00 23:00 07:00 Intake Total 37.5 ml 650 ml 190 ml Balance 37.5 ml 650 ml 190 ml medications Current Medications Medications Dose Ordered Sig/Cameron Route Start Time Stop Time Status Last Admin Dose Admin Sodium Chloride 10 ml Q8HR IV 08/05/24 22:00 08/10/24 05:35 10 ML Morphine Sulfate 2 mg Q4HPRN PRN IV 08/05/24 21:30 08/06/24 18:47 2 MG Vancomycin HCl 0 ml @ 0 mls/hr UD IV 08/06/24 07:15 Acetaminophen 650 mg TID PO 08/06/24 14:00 08/10/24 06:23 650 MG Midodrine 10 mg TID@0600,1200,1800 PO 08/07/24 12:00 08/09/24 17:53 10 MG Acetaminophen/ Hydrocodone Bitart 1 tab Q4HPRN PRN PO 08/09/24 08:45 08/10/24 02:33 1 TAB Meropenem 50 ml @ 17 mls/hr HS IV 08/09/24 22:00 08/09/24 22:44 17 MLS/HR Levalbuterol HCl 0.625 mg Q6HR NEB 08/09/24 18:00 08/10/24 07:23 0.625 MG Ipratropium [place] 0.5 mg Q6HR NEB 08/09/24 18:00 08/10/24 07:23 0.5 MG Examination General Appearance: Cooperative. Dry mucous membranes. NAD Head Exam: Normal inspection Neck Exam: Normal inspection. Non-tender. Normal alignment Pulmonary/Respiratory: Chest non-tender. Clear bilateral breath sounds, no crackles, no wheezing. Cardiovascular/Chest: Regular rate and rhythm. No murmurs. No JVD. Abdominal Exam: Normal bowel sounds. Soft. normal abdomen, no visible veins, Nontender. No hepatospenomegaly. No masses Ankle Exam: Negative ankle edema Upper extremities: Decreased movement in the left upper extremity and left lower extremity Lower extremities: Negative lower extremity edema Neuro/Mental Status: A&O x4. Coherent. Thoughts/Psych: Normal thought pattern. Appropriate mood and affect. Good judgement and insight Skin Exam: Normal inspection. Normal color. Warm. Dry laboratory and microbiology Laboratory Tests 08/10/24 05:41 Test 08/10/24 05:41 Range/Units Serum Glucose 85 74-106 mg/dL Microbiology Date/Time Source Procedure Growth Status 08/09/24 15:57 Sputum Gram Stain - Final Resulted 08/09/24 15:57 Sputum Respiratory Culture - Preliminary Resulted 08/08/24 14:38 Blood Blood Culture - Preliminary NO GROWTH AFTER 24 HOURS OF INCUBATION. Resulted 08/06/24 23:50 Nose MRSA Screen - Final Complete Labs and/or images reviewed: Labs reviewed by me, Image(s) reviewed by me Problem List/Assessment/Plan Problem List/Assessment/Plan Community-acquired pneumonia, Gram-positive versus Gram-negative Sepsis due to above Bacteremia with blood culture growing Gram-positive cocci Ruled out DVT Ruled out pulmonary embolism - CXR: Bibasilar areas of airspace disease with a accompanying atelectasis in the left base. - lower extremity Doppler: No right or left femoropopliteal venous thrombosis. - V/Q scan showed low probability for PE - IV vancomycin - discontinued IV cefepime on 08/09/2024 - started IV meropenem on 08/09/2024 - midodrine 10 mg t.i.d. - IV albumin - blood culture + for Staph hominis sensitive to vancomycin - repeat blood cultures came back negative - repeat chest x-ray from 08/08/2024 shows worsening bilateral perihilar peribronchial thickening and right lower lobe airspace disease and atelectasis. ESRD on hemodialysis Saturday, Saturday and Saturday History of polycystic kidney disease Coagulopathy due to above? Hematuria - nephrology consulted - currently holding patient's home dose Eliquis as INR currently >2 Left shoulder chronic fracture Left 4 through 7 rib fracture - acetaminophen 650 mg p.o. t.i.d. - IV morphine 2 mg q.4 hours as needed for severe pain Hypertension Dyslipidemia - monitor Goals of care: Full code, discussed for >16 minutes on 08/06/2024 Plan discussed with patient Plan discussed with Dr. Tipton Plan discussed with: Patient, Daughter, Other (RN) My Orders My Orders Orders - MICHELLE GOODEN RESIDENT Procedure Category Date Status Time Head Without Contrast CT 08/10/24 Verified 11:51 Date of Service: Aug 10, 2024 Billing Provider: RONNI TIPTON MD Common Visit Codes: [id number] INP/OBS CARE(HIGH) MICHELLE GOODEN Aug 10, 2024 11:55 RONNI TIPTON MD Aug 17, 2024 12:45
[2024-08-10] MEDS: SODIUM CHL 0.9% 1000 ML BAG XX ONE (14:17)
--- NOTE | 2024-08-10 18:46 | DVH ---
Exam: CT HEAD WITHOUT CONTRAST History: dizziness, mental status change Technique: [address] images through the posterior fossa and the supratentorial compart ment were acquired without contrast and imaged using soft tissue and bone algorithms. RADIATION DOSE: DLP 965.34 mGy.cm; CTDI vol 54.51 mGy. Comparison: CT HEAD WITHOUT CONTRAST on DOS: 07/07/24, CT STROKE CTH on DOS: 05/27/24, CT HEAD WITHOUT CONTRAST on DOS: 08/01/23 Findings: There is no evidence of an intracranial hemorrhage, acute large vessel infarct, mass effect, or midli ne shift. Chronic right frontal infarct. Similar bifrontal subdural fluid collections. There is mild cerebral atrophy. Moderate calcification of the carotid siphons. Partial opacification of the frontal and ethmoid sinuses and bilateral mastoid air cells. The calvari um, orbits, remaining paranasal sinuses, sella, and middle ears are unremarkable. The superficial soft tissues are within normal limits. Impression: 1. No acute intracranial abnormality. 2. Chronic right frontal infarct. 3. Similar bifrontal subdural fluid collections. 4. Frontal and ethmoid sinus disease. 5. Mild bilateral mastoid effusions, new from prior.
[2024-08-10] MEDS: EPOETIN ALFA-EPBX 10,000 UNIT/1ML VIAL SC ONE (22:40)
[2024-08-10 23:54] LABS: Alanine Aminotransferase < 9 U/L (7-40); Albumin 2.6 g/dL (3.2-4.8); Alkaline Phosphatase 142 U/L (46-116); Anion Gap 10 (5-15); Aspartate Aminotransferase 19 U/L (13-40); BUN/Creatinine Ratio 5.2 (10.0-20.0); Bilirubin, Total 0.7 mg/dL (0.2-1.0); Blood Urea Nitrogen 28 mg/dL (9-23); Calcium 8.6 mg/dL (8.7-10.4); Carbon Dioxide 28 mmol/L (20-31); Chloride 100 mmol/L (98-107); Glucose 96 mg/dL (74-106); Sodium 138 mmol/L (136-145); Total Protein 6.3 g/dL (5.7-8.2)
[2024-08-11] VITALS (17 sets, daily range): BP systolic 88–115; BP diastolic 26–71; PULSE 71–89; RESP 16–20; TEMP 97.5–98.7; O2SAT 91–99
[2024-08-11 06:44] LABS: Chloride 101 mmol/L (98-107); Potassium 4.1 mmol/L (3.5-5.1); Sodium 138 mmol/L (136-145)
[2024-08-11 06:45] LABS: Anion Gap 10 (5-15); Carbon Dioxide 27 mmol/L (20-31)
[2024-08-11 06:50] LABS: BUN/Creatinine Ratio 5.5 (10.0-20.0); Glucose 99 mg/dL (74-106)
[2024-08-11 06:55] LABS: Blood Urea Nitrogen 32 mg/dL (9-23)
[2024-08-11 07:06] LABS: Basophils # (auto) 0.1 10 ^3/uL (0-0.2); Basophils % (auto) 1.1 % (0.0-2.0); Eosinophils # (auto) 0.4 10 ^3/uL (0-0.8); Eosinophils % (auto) 3.7 % (0.0-7.0); Hematocrit 32.2 % (41.0-53.0); Hemoglobin 10.4 g/dL (13.5-17.5); Lymphocytes % (auto) 9.1 % (10.0-50.0); Mean Corpuscular Hemoglobin 29.1 pg (28.0-32.0); Mean Corpuscular Hgb Conc. 32.3 g/dL (32.0-36.0); Mean Corpuscular Volume 90.1 fL (80.0-100.0); Monocytes # (auto) 1.3 10 ^3/uL (0-1.3); Monocytes % (auto) 11.6 % (0.0-12.0); Neutrophils # (auto) 8.1 10 ^3/uL (1.6-8.6); Neutrophils % (auto) 74.5 % (37.0-80.0); Nucleated Red Blood Cells % 0.1 %; Platelet Count (auto) 132 10^3/uL (140-450); Red Blood Cells 3.57 10^6/uL (4.5-5.90); Red Cell Distribution Width 18.6 % (11.8-14.3); White Blood Cell 10.9 10^3/uL (4.4-10.8)
[2024-08-11] MEDS: LIDOCAINE 2%HCL (LOCAL ANESTH.) INJ 10ml MDV ONE (07:38)
--- NOTE | 2024-08-11 10:26 | DVH ---
PROCEDURE: Tunneled dialysis catheter removal HISTORY: 59 Male infected dialysis catheter OPERATORS: MD Fahad DOCUMENTATION: Informed consent was obtained and a procedural time out was performed. TECHNIQUE: The skin over the existing catheter was sterilely prepped, draped, and anesthetized with 1 % lidocaine with epinephrine. The tunneled tract was opened and catheter were then removed using a c ombination of blunt and sharp dissection. Sterile dressings were applied. FINDINGS: Left chest tunneled central venous catheter removed. IMPRESSION: Tunneled left central venous catheter removed. Tip sent for laboratory analysis.
--- NOTE | 2024-08-11 12:48 | DVHPN2 ---
Progress Note Date Seen: Aug 11, 2024 Medical Necessity Reason Pt with a Central, PICC or Fol: No Objective vital signs Vital Sign Date Time Temp Pulse Resp B/P (MAP) Pulse Ox O2 Delivery O2 Flow Rate FiO2 08/11/24 08:54 98.1 78 16 92/31 (51) 94 98.1 08/11/24 06:21 Nasal Cannula* 2 28 Total Intake and Output 08/10/24 08/10/24 08/11/24 15:00 23:00 07:00 Intake Total 240 ml 300 ml Balance 240 ml 300 ml medications Current Medications Medications Dose Ordered Sig/Cameron Route Start Time Stop Time Status Last Admin Dose Admin Sodium Chloride 10 ml Q8HR IV 08/05/24 22:00 08/11/24 05:18 10 ML Morphine Sulfate 2 mg Q4HPRN PRN IV 08/05/24 21:30 08/06/24 18:47 2 MG Vancomycin HCl 0 ml @ 0 mls/hr UD IV 08/06/24 07:15 Acetaminophen 650 mg TID PO 08/06/24 14:00 08/11/24 05:18 650 MG Midodrine 10 mg TID@0600,1200,1800 PO 08/07/24 12:00 08/11/24 11:51 10 MG Acetaminophen/ Hydrocodone Bitart 1 tab Q4HPRN PRN PO 08/09/24 08:45 08/11/24 10:48 1 TAB Meropenem 50 ml @ 17 mls/hr HS IV 08/09/24 22:00 08/10/24 22:40 17 MLS/HR Levalbuterol HCl 0.625 mg Q6HR NEB 08/09/24 18:00 08/11/24 06:21 0.625 MG Ipratropium [place] 0.5 mg Q6HR NEB 08/09/24 18:00 08/11/24 06:21 0.5 MG Examination: GENERAL:Abnormal, CVS:Normal, ABDOMEN:Normal, SKIN:Normal laboratory and microbiology Laboratory Tests 08/11/24 05:30 Test 08/11/24 05:30 Range/Units Serum Glucose 99 74-106 mg/dL Microbiology Date/Time Source Procedure Growth Status 08/09/24 15:57 Sputum Gram Stain - Final Resulted 08/09/24 15:57 Sputum Respiratory Culture - Preliminary Resulted 08/08/24 14:38 Blood Blood Culture - Preliminary NO GROWTH AFTER 48 HOURS OF INCUBATION. Resulted 08/06/24 23:50 Nose MRSA Screen - Final Complete Problem List/Assessment/Plan Problem List/Assessment/Plan ESRD on hemodialysis Acute hypoxic respiratory failure, requiring O2 therapy Congestive heart failure exacerbation, ejection fraction 40% Sepsis staph bacteremia Anemia of chronic kidney disease Dialysis Epogen 4000 IV with hemodialysis Fluid restrictions Midodrine for blood pressure support Renal diet ID , vancomycin and merrem ordered currently on line holiday Plan discussed with: Patient LUDIVINA TABARES MD Aug 11, 2024 12:48
--- NOTE | 2024-08-11 16:38 | DVHPNRES ---
Progress Note Date Seen: Aug 11, 2024 Resident Creating Document: MCIHELLE GOODEN RESIDENT Medical Necessity Reason Pt with a Central, PICC or Fol: No Subjective Review of Systems Patient is a 59-year-old male with past medical history of ESRD on HD Saturday, autosomal dominant polycystic kidney disease, CVA x4 with residual left-sided weakness, dyslipidemia, hypertension, cataract with partial vision loss, chronic fractures, who came in due to shortness of breath. According to the patient, for the past 2 weeks he has been experiencing shortness of breaths and left shoulder pain secondary to a fall he sustained 2 weeks ago and fractured his left-sided ribs, multiple and left shoulder. Per patient, he has been having shortness of breaths for the last 2 weeks as breathing hurts his ribs. Patient is on hemodialysis via a left chest wall catheter, patient has not old right arm fistula which is nonfunctional. Chest x-ray showed bibasilar areas of airspace disease accompanying atelectasis in the left base. Past surgical history: Port-A-Cath Past Hospitalization: 1 month ago for shortness of breath Social & Personal history: Patient lives with daughter. Quit smoking 3 years ago, prior to that was smoking half a pack per day for 10 years. Denies using alcohol. Denies using drugs. Allergies: Codeine Patient seen and examined at bedside. Patient is alert and oriented to time, place person and responding to all questions. Reports increasing cough, we will order repeat CXR. 1+ ankle edema noted. Currently on 3 L of oxygen. Patient had an episode of confusion overnight. Currently AOX4 Objective vital signs Vital Sign Date Time Temp Pulse Resp B/P (MAP) Pulse Ox O2 Delivery O2 Flow Rate FiO2 08/11/24 13:00 81 18 99 08/11/24 12:54 Nasal Cannula 2.0 08/11/24 12:54 28 08/11/24 08:54 98.1 92/31 (51) 98.1 Total Intake and Output 08/10/24 08/10/24 08/11/24 15:00 23:00 07:00 Intake Total 240 ml 300 ml Balance 240 ml 300 ml medications Current Medications Medications Dose Ordered Sig/Cameron Route Start Time Stop Time Status Last Admin Dose Admin Sodium Chloride 10 ml Q8HR IV 08/05/24 22:00 08/11/24 05:18 10 ML Morphine Sulfate 2 mg Q4HPRN PRN IV 08/05/24 21:30 08/06/24 18:47 2 MG Vancomycin HCl 0 ml @ 0 mls/hr UD IV 08/06/24 07:15 Acetaminophen 650 mg TID PO 08/06/24 14:00 08/11/24 05:18 650 MG Midodrine 10 mg TID@0600,1200,1800 PO 08/07/24 12:00 08/11/24 11:51 10 MG Acetaminophen/ Hydrocodone Bitart 1 tab Q4HPRN PRN PO 08/09/24 08:45 08/11/24 10:48 1 TAB Meropenem 50 ml @ 17 mls/hr HS IV 08/09/24 22:00 08/10/24 22:40 17 MLS/HR Levalbuterol HCl 0.625 mg Q6HR NEB 08/09/24 18:00 08/11/24 12:54 0.625 MG Ipratropium [place] 0.5 mg Q6HR NEB 08/09/24 18:00 08/11/24 12:54 0.5 MG Examination General Appearance: Cooperative. NAD Head Exam: Normal inspection Neck Exam: Normal inspection. Non-tender. Normal alignment Pulmonary/Respiratory: Chest non-tender. Clear bilateral breath sounds, no crackles, no wheezing. Cardiovascular/Chest: Regular rate and rhythm. No murmurs. No JVD. Abdominal Exam: Normal bowel sounds. Soft. normal abdomen, no visible veins, Nontender. No hepatospenomegaly. No masses Ankle Exam: Negative ankle edema Upper extremities: Decreased movement in the left upper extremity and left lower extremity Lower extremities: Negative lower extremity edema Neuro/Mental Status: A&O x4. Coherent. Thoughts/Psych: Normal thought pattern. Appropriate mood and affect. Good judgement and insight Skin Exam: Normal inspection. Normal color. Warm. Dry laboratory and microbiology Laboratory Tests 08/11/24 05:30 Test 08/11/24 05:30 Range/Units Serum Glucose 99 74-106 mg/dL Microbiology Date/Time Source Procedure Growth Status 08/09/24 15:57 Sputum Gram Stain - Final Resulted 08/09/24 15:57 Sputum Respiratory Culture - Preliminary Resulted 08/08/24 14:38 Blood Blood Culture - Preliminary NO GROWTH AFTER 72 HOURS OF INCUBATION. Resulted 08/06/24 23:50 Nose MRSA Screen - Final Complete Labs and/or images reviewed: Labs reviewed by me, Image(s) reviewed by me Problem List/Assessment/Plan Problem List/Assessment/Plan Community-acquired pneumonia, Gram-positive versus Gram-negative Sepsis due to above Bacteremia with blood culture growing Gram-positive cocci Ruled out DVT Ruled out pulmonary embolism Vascular dementia? - CXR: Bibasilar areas of airspace disease with a accompanying atelectasis in the left base. - lower extremity Doppler: No right or left femoropopliteal venous thrombosis. - V/Q scan showed low probability for PE - IV vancomycin - discontinued IV cefepime on 08/09/2024 - started IV meropenem on 08/09/2024 - midodrine 10 mg t.i.d. - IV albumin - blood culture + for Staph hominis sensitive to vancomycin - repeat blood cultures came back negative - repeat chest x-ray from 08/08/2024 shows worsening bilateral perihilar peribronchial thickening and right lower lobe airspace disease and atelectasis. - head CT: No acute intracranial abnormality. Chronic right frontal infarct. Similar bifrontal subdural fluid collections. Frontal and ethmoid sinus disease. Mild bilateral mastoid effusions, new from prior. - removed HD catheter and sent the tip for culture, pt will have 2 catheter free days ESRD on hemodialysis Saturday, Saturday and Saturday History of polycystic kidney disease Coagulopathy due to above? Hematuria - nephrology consulted - currently holding patient's home dose Eliquis as INR currently >2 Left shoulder chronic fracture Left 4 through 7 rib fracture - acetaminophen 650 mg p.o. t.i.d. - IV morphine 2 mg q.4 hours as needed for severe pain Hypertension Dyslipidemia - monitor Goals of care: Full code, discussed for >16 minutes on 08/06/2024 Plan discussed with patient Plan discussed with Dr. Tipton Plan discussed with: Patient, Daughter, Other (RN) My Orders My Orders Orders - MICHELLE GOODEN Procedure Category Date Status Time * Radiologist Consult CONS 08/10/24 Transmitted 16:37 C-Diff: Collect Next NELLIE 08/11/24 In Process Specimen 13:35 Date of Service: Aug 11, 2024 Billing Provider: RONNI TIPTON MD Common Visit Codes: [id number] INP/OBS CARE(HIGH) MICHELLE GOODEN Aug 11, 2024 16:38 RONNI TIPTON MD Aug 17, 2024 12:45
[2024-08-11] MEDS: VANCOMYCIN 1.25GM/250ML 250 ML IV ONE (19:30)
[2024-08-12] VITALS (17 sets, daily range): BP systolic 105–123; BP diastolic 32–96; PULSE 69–89; RESP 16–20; TEMP 97.4–97.8; O2SAT 94–100
[2024-08-12 06:29] LABS: Anion Gap 11 (5-15); Carbon Dioxide 25 mmol/L (20-31); Chloride 101 mmol/L (98-107); Potassium 4.5 mmol/L (3.5-5.1); Sodium 137 mmol/L (136-145)
[2024-08-12 06:35] LABS: BUN/Creatinine Ratio 5.6 (10.0-20.0); Glucose 81 mg/dL (74-106)
[2024-08-12 06:41] LABS: Blood Urea Nitrogen 38 mg/dL (9-23); Calcium 8.3 mg/dL (8.7-10.4)
[2024-08-12 07:38] LABS: Basophils # (auto) 0.1 10 ^3/uL (0-0.2); Basophils % (auto) 0.8 % (0.0-2.0); Eosinophils # (auto) 0.5 10 ^3/uL (0-0.8); Eosinophils % (auto) 5.1 % (0.0-7.0); Hematocrit 35.1 % (41.0-53.0); Hemoglobin 11.1 g/dL (13.5-17.5); Lymphocytes # (auto) 1.5 10 ^3/uL (0.4-5.4); Lymphocytes % (auto) 13.9 % (10.0-50.0); Mean Corpuscular Hemoglobin 28.6 pg (28.0-32.0); Mean Corpuscular Hgb Conc. 31.7 g/dL (32.0-36.0); Mean Corpuscular Volume 90.4 fL (80.0-100.0); Monocytes # (auto) 1.2 10 ^3/uL (0-1.3); Neutrophils # (auto) 7.2 10 ^3/uL (1.6-8.6); Neutrophils % (auto) 69.2 % (37.0-80.0); Nucleated Red Blood Cells % 0.5 %; Platelet Count (auto) 132 10^3/uL (140-450); Red Blood Cells 3.88 10^6/uL (4.5-5.90); White Blood Cell 10.5 10^3/uL (4.4-10.8)
[2024-08-12] MEDS: DOXYCYCLINE 100MG/100ML 100 ML IV SCH (12:57)
--- NOTE | 2024-08-12 13:31 | DVHPN2 ---
Progress Note Date Seen: Aug 12, 2024 Medical Necessity Reason Pt with a Central, PICC or Fol: No Objective vital signs Vital Sign Date Time Temp Pulse Resp B/P (MAP) Pulse Ox O2 Delivery O2 Flow Rate FiO2 08/12/24 13:00 84 18 99 08/12/24 10:00 Nasal Cannula* 2 28 08/12/24 05:00 97.4 105/43 (63) 97.4 Total Intake and Output 08/11/24 08/11/24 08/12/24 15:00 23:00 07:00 Intake Total 800 ml 575 ml Balance 800 ml 575 ml medications Current Medications Medications Dose Ordered Sig/Cameron Route Start Time Stop Time Status Last Admin Dose Admin Sodium Chloride 10 ml Q8HR IV 08/05/24 22:00 08/12/24 05:28 10 ML Morphine Sulfate 2 mg Q4HPRN PRN IV 08/05/24 21:30 08/06/24 18:47 2 MG Vancomycin HCl 0 ml @ 0 mls/hr UD IV 08/06/24 07:15 Acetaminophen 650 mg TID PO 08/06/24 14:00 08/12/24 05:28 650 MG Midodrine 10 mg TID@0600,1200,1800 PO 08/07/24 12:00 08/12/24 12:57 10 MG Acetaminophen/ Hydrocodone Bitart 1 tab Q4HPRN PRN PO 08/09/24 08:45 08/11/24 10:48 1 TAB Meropenem 50 ml @ 17 mls/hr HS IV 08/09/24 22:00 08/11/24 22:29 17 MLS/HR Levalbuterol HCl 0.625 mg Q6HR NEB 08/09/24 18:00 08/12/24 12:54 0.625 MG Ipratropium [place] 0.5 mg Q6HR NEB 08/09/24 18:00 08/12/24 12:54 0.5 MG Doxycycline Hyclate 100 ml @ 50 mls/hr Q12H IV 08/12/24 10:30 08/12/24 12:57 50 MLS/HR Examination: GENERAL:Abnormal, ABDOMEN:Abnormal, NEURO:Abnormal laboratory and microbiology Laboratory Tests 08/12/24 05:11 Test 08/12/24 05:11 Range/Units Serum Glucose 81 74-106 mg/dL Microbiology Date/Time Source Procedure Growth Status 08/11/24 16:05 Stool Clostridium difficile Toxin Assay - Final Complete 08/11/24 08:50 Catheter Tip Other Aerobic Culture - Preliminary Resulted 08/09/24 15:57 Sputum Gram Stain - Final Complete 08/09/24 15:57 Respiratory Culture - Final Staphylococcus haemolyticus Complete 08/08/24 14:38 Blood Blood Culture - Preliminary NO GROWTH AFTER 72 HOURS OF INCUBATION. Resulted Problem List/Assessment/Plan Problem List/Assessment/Plan ESRD on hemodialysis Acute hypoxic respiratory failure Congestive heart failure exacerbation, ejection fraction 40% Sepsis staph bacteremia Anemia of chronic kidney disease Dialysis tomorrow after new catheter placement Epogen 4000 IV 3x a week Fluid restrictions Midodrine for blood pressure support Renal diet ID , vancomycin new catheter placement tentative tomorrow Plan discussed with: Patient LUDIVINA TABARES MD Aug 12, 2024 13:31
--- NOTE | 2024-08-12 19:05 | DVHPNRES ---
Progress Note Date Seen: Aug 12, 2024 Resident Creating Document: MICHELLE GOODEN RESIDENT Medical Necessity Reason Pt with a Central, PICC or Fol: No Subjective Review of Systems Patient is a 59-year-old male with past medical history of ESRD on HD Saturday, autosomal dominant polycystic kidney disease, CVA x4 with residual left-sided weakness, dyslipidemia, hypertension, cataract with partial vision loss, chronic fractures, who came in due to shortness of breath. According to the patient, for the past 2 weeks he has been experiencing shortness of breaths and left shoulder pain secondary to a fall he sustained 2 weeks ago and fractured his left-sided ribs, multiple and left shoulder. Per patient, he has been having shortness of breaths for the last 2 weeks as breathing hurts his ribs. Patient is on hemodialysis via a left chest wall catheter, patient has not old right arm fistula which is nonfunctional. Chest x-ray showed bibasilar areas of airspace disease accompanying atelectasis in the left base. Past surgical history: Port-A-Cath Past Hospitalization: 1 month ago for shortness of breath Social & Personal history: Patient lives with daughter. Quit smoking 3 years ago, prior to that was smoking half a pack per day for 10 years. Denies using alcohol. Denies using drugs. Allergies: Codeine Patient seen and examined at bedside. Patient is alert and oriented to time, place person and responding to all questions. Reports increasing cough, we will order repeat CXR. 1+ ankle edema noted. Currently on 3 L of oxygen. Patient continues to have . Currently AOX4 Objective vital signs Vital Sign Date Time Temp Pulse Resp B/P (MAP) Pulse Ox O2 Delivery O2 Flow Rate FiO2 08/12/24 18:50 89 20 100 08/12/24 18:42 Nasal Cannula* 2 28 08/12/24 16:25 97.7 112/49 (70) 97.7 Total Intake and Output 08/11/24 08/11/24 08/12/24 15:00 23:00 07:00 Intake Total 800 ml 575 ml Balance 800 ml 575 ml medications Current Medications Medications Dose Ordered Sig/Cameron Route Start Time Stop Time Status Last Admin Dose Admin Sodium Chloride 10 ml Q8HR IV 08/05/24 22:00 08/12/24 15:32 10 ML Morphine Sulfate 2 mg Q4HPRN PRN IV 08/05/24 21:30 08/06/24 18:47 2 MG Vancomycin HCl 0 ml @ 0 mls/hr UD IV 08/06/24 07:15 Acetaminophen 650 mg TID PO 08/06/24 14:00 08/12/24 15:31 650 MG Midodrine 10 mg TID@0600,1200,1800 PO 08/07/24 12:00 08/12/24 18:23 10 MG Acetaminophen/ Hydrocodone Bitart 1 tab Q4HPRN PRN PO 08/09/24 08:45 08/11/24 10:48 1 TAB Meropenem 50 ml @ 17 mls/hr HS IV 08/09/24 22:00 08/11/24 22:29 17 MLS/HR Levalbuterol HCl 0.625 mg Q6HR NEB 08/09/24 18:00 08/12/24 18:42 0.625 MG Ipratropium [place] 0.5 mg Q6HR NEB 08/09/24 18:00 08/12/24 18:42 0.5 MG Doxycycline Hyclate 100 ml @ 50 mls/hr Q12H IV 08/12/24 10:30 08/12/24 12:57 50 MLS/HR Examination General Appearance: Cooperative. NAD Head Exam: Normal inspection Neck Exam: Normal inspection. Non-tender. Normal alignment Pulmonary/Respiratory: Chest non-tender. Clear bilateral breath sounds, no crackles, no wheezing. Cardiovascular/Chest: Regular rate and rhythm. No murmurs. No JVD. Abdominal Exam: Normal bowel sounds. Soft. normal abdomen, no visible veins, Nontender. No hepatospenomegaly. No masses Ankle Exam: Negative ankle edema Upper extremities: Decreased movement in the left upper extremity and left lower extremity Lower extremities: Negative lower extremity edema Neuro/Mental Status: A&O x4. Coherent. Thoughts/Psych: Normal thought pattern. Appropriate mood and affect. Good judgement and insight Skin Exam: Normal inspection. Normal color. Warm. Dry laboratory and microbiology Laboratory Tests 08/12/24 05:11 Test 08/12/24 05:11 Range/Units Serum Glucose 81 74-106 mg/dL Microbiology Date/Time Source Procedure Growth Status 08/11/24 16:05 Stool Clostridium difficile Toxin Assay - Final Complete 08/11/24 08:50 Catheter Tip Other Aerobic Culture - Preliminary Resulted 08/09/24 15:57 Sputum Gram Stain - Final Complete 08/09/24 15:57 Respiratory Culture - Final Staphylococcus haemolyticus Complete 08/08/24 14:38 Blood Blood Culture - Preliminary NO GROWTH AFTER 72 HOURS OF INCUBATION. Resulted Labs and/or images reviewed: Labs reviewed by me, Image(s) reviewed by me Problem List/Assessment/Plan Problem List/Assessment/Plan Community-acquired pneumonia, Gram-positive versus Gram-negative Sepsis due to above Bacteremia with blood culture growing Gram-positive cocci Ruled out DVT Ruled out pulmonary embolism Vascular dementia? - CXR: Bibasilar areas of airspace disease with a accompanying atelectasis in the left base. - lower extremity Doppler: No right or left femoropopliteal venous thrombosis. - V/Q scan showed low probability for PE - IV vancomycin - discontinued IV cefepime on 08/09/2024 - started IV meropenem on 08/09/2024 - midodrine 10 mg t.i.d. - IV albumin - blood culture + for Staph hominis sensitive to vancomycin - repeat blood cultures came back negative - repeat chest x-ray from 08/08/2024 shows worsening bilateral perihilar peribronchial thickening and right lower lobe airspace disease and atelectasis. - head CT: No acute intracranial abnormality. Chronic right frontal infarct. Similar bifrontal subdural fluid collections. Frontal and ethmoid sinus disease. Mild bilateral mastoid effusions, new from prior. - removed HD catheter and sent the tip for culture, pt will have 2 catheter free days - respiratory culture grew Staph hemolyticus sensitive to only vanco, tetracycline and linezolid, started doxycycline on 08/12/24 - scheduled for HD cath placement tomorrow on 08/13/24 ESRD on hemodialysis Saturday, Saturday and Saturday History of polycystic kidney disease Coagulopathy due to above? Hematuria - nephrology consulted - currently holding patient's home dose Eliquis as INR currently >2 Left shoulder chronic fracture Left 4 through 7 rib fracture - acetaminophen 650 mg p.o. t.i.d. - IV morphine 2 mg q.4 hours as needed for severe pain Hypertension Dyslipidemia - monitor Goals of care: Full code, discussed for >16 minutes on 08/06/2024 Plan discussed with patient Plan discussed with Dr. Tipton Plan discussed with: Patient, Other (RN) My Orders My Orders Orders - MICHELLE GOODEN RESIDENT Procedure Category Date Status Time D/C Sitter ORDERS 08/12/24 Transmitted 14:38 Date of Service: Aug 12, 2024 Billing Provider: RONNI TIPTON MD Common Visit Codes: [id number] INP/OBS CARE(HIGH) MICHELLE GOODEN Aug 12, 2024 19:05 RONNI TIPTON MD Aug 17, 2024 12:46
[2024-08-13] VITALS (22 sets, daily range): BP systolic 98–165; BP diastolic 28–74; PULSE 70–91; RESP 13–20; TEMP 97.3–98.4; O2SAT 95–100
[2024-08-13 05:26] LABS: Basophils # (auto) 0.1 10 ^3/uL (0-0.2); Eosinophils # (auto) 0.5 10 ^3/uL (0-0.8); Eosinophils % (auto) 4.1 % (0.0-7.0); Hematocrit 35.9 % (41.0-53.0); Hemoglobin 11.3 g/dL (13.5-17.5); Lymphocytes # (auto) 1.6 10 ^3/uL (0.4-5.4); Lymphocytes % (auto) 13.2 % (10.0-50.0); Mean Corpuscular Hemoglobin 28.5 pg (28.0-32.0); Mean Corpuscular Hgb Conc. 31.5 g/dL (32.0-36.0); Mean Corpuscular Volume 90.5 fL (80.0-100.0); Monocytes # (auto) 1.3 10 ^3/uL (0-1.3); Monocytes % (auto) 10.4 % (0.0-12.0); Neutrophils # (auto) 8.9 10 ^3/uL (1.6-8.6); Neutrophils % (auto) 71.3 % (37.0-80.0); Nucleated Red Blood Cells % 0.2 %; Platelet Count (auto) 141 10^3/uL (140-450); Red Blood Cells 3.97 10^6/uL (4.5-5.90); Red Cell Distribution Width 19.4 % (11.8-14.3); White Blood Cell 12.5 10^3/uL (4.4-10.8)
[2024-08-13 05:41] LABS: Anion Gap 11 (5-15); Carbon Dioxide 26 mmol/L (20-31); Chloride 100 mmol/L (98-107); Potassium 5.1 mmol/L (3.5-5.1); Sodium 137 mmol/L (136-145)
[2024-08-13 05:47] LABS: Glucose 79 mg/dL (74-106)
[2024-08-13 06:30] LABS: Blood Urea Nitrogen 56 mg/dL (9-23); Calcium 7.8 mg/dL (8.7-10.4)
--- NOTE | 2024-08-13 06:47 | DVHPNRES ---
Progress Note Date Seen: Aug 13, 2024 Resident Creating Document: MICHELLE GOODEN RESIDENT Medical Necessity Reason Pt with a Central, PICC or Fol: No Subjective Review of Systems Patient is a 59-year-old male with past medical history of ESRD on HD Saturday, autosomal dominant polycystic kidney disease, CVA x4 with residual left-sided weakness, dyslipidemia, hypertension, cataract with partial vision loss, chronic fractures, who came in due to shortness of breath. According to the patient, for the past 2 weeks he has been experiencing shortness of breaths and left shoulder pain secondary to a fall he sustained 2 weeks ago and fractured his left-sided ribs, multiple and left shoulder. Per patient, he has been having shortness of breaths for the last 2 weeks as breathing hurts his ribs. Patient is on hemodialysis via a left chest wall catheter, patient has not old right arm fistula which is nonfunctional. Chest x-ray showed bibasilar areas of airspace disease accompanying atelectasis in the left base. Past surgical history: Port-A-Cath Past Hospitalization: 1 month ago for shortness of breath Social & Personal history: Patient lives with daughter. Quit smoking 3 years ago, prior to that was smoking half a pack per day for 10 years. Denies using alcohol. Denies using drugs. Allergies: Codeine Patient seen and examined at bedside. Patient is alert and oriented to time, place person and responding to all questions. Reports increasing cough, we will order repeat CXR. 1+ ankle edema noted. Currently on 3 L of oxygen. Patient continues to have . Currently AOX4 Objective vital signs Vital Sign Date Time Temp Pulse Resp B/P (MAP) Pulse Ox O2 Delivery O2 Flow Rate FiO2 08/13/24 05:00 97.3 75 18 124/40 (68) 95 97.3 08/13/24 00:24 Nasal Cannula 2.0 08/13/24 00:24 28 Total Intake and Output 08/12/24 08/12/24 08/13/24 15:00 23:00 07:00 Intake Total 470 ml 1280 ml Balance 470 ml 1280 ml medications Current Medications Medications Dose Ordered Sig/Cameron Route Start Time Stop Time Status Last Admin Dose Admin Sodium Chloride 10 ml Q8HR IV 08/05/24 22:00 08/13/24 06:34 10 ML Morphine Sulfate 2 mg Q4HPRN PRN IV 08/05/24 21:30 08/06/24 18:47 2 MG Vancomycin HCl 0 ml @ 0 mls/hr UD IV 08/06/24 07:15 Acetaminophen 650 mg TID PO 08/06/24 14:00 08/13/24 06:22 650 MG Midodrine 10 mg TID@0600,1200,1800 PO 08/07/24 12:00 08/13/24 06:22 10 MG Acetaminophen/ Hydrocodone Bitart 1 tab Q4HPRN PRN PO 08/09/24 08:45 08/12/24 21:24 1 TAB Meropenem 50 ml @ 17 mls/hr HS IV 08/09/24 22:00 08/12/24 21:24 17 MLS/HR Levalbuterol HCl 0.625 mg Q6HR NEB 08/09/24 18:00 08/13/24 00:24 0.625 MG Ipratropium [place] 0.5 mg Q6HR NEB 08/09/24 18:00 08/13/24 00:24 0.5 MG Doxycycline Hyclate 100 ml @ 50 mls/hr Q12H IV 08/12/24 10:30 08/12/24 22:30 50 MLS/HR Examination General Appearance: Cooperative. NAD Head Exam: Normal inspection Neck Exam: Normal inspection. Non-tender. Normal alignment Pulmonary/Respiratory: Chest non-tender. Clear bilateral breath sounds, no crackles, no wheezing. Cardiovascular/Chest: Regular rate and rhythm. No murmurs. No JVD. Abdominal Exam: Normal bowel sounds. Soft. normal abdomen, no visible veins, Nontender. No hepatospenomegaly. No masses Ankle Exam: Negative ankle edema Upper extremities: Decreased movement in the left upper extremity and left lower extremity Lower extremities: Negative lower extremity edema Neuro/Mental Status: A&O x4. Coherent. Thoughts/Psych: Normal thought pattern. Appropriate mood and affect. Good judgement and insight Skin Exam: Normal inspection. Normal color. Warm. Dry laboratory and microbiology Laboratory Tests 08/13/24 04:58 Test 08/13/24 04:58 Range/Units Serum Glucose 79 74-106 mg/dL Microbiology Date/Time Source Procedure Growth Status 08/11/24 16:05 Stool Clostridium difficile Toxin Assay - Final Complete 08/11/24 08:50 Catheter Tip Other Aerobic Culture - Preliminary Resulted 08/09/24 15:57 Sputum Gram Stain - Final Complete 08/09/24 15:57 Respiratory Culture - Final Staphylococcus haemolyticus Complete 08/08/24 14:38 Blood Blood Culture - Preliminary NO GROWTH AFTER 72 HOURS OF INCUBATION. Resulted Labs and/or images reviewed: Labs reviewed by me, Image(s) reviewed by me Problem List/Assessment/Plan Problem List/Assessment/Plan Community-acquired pneumonia, Gram-positive versus Gram-negative Sepsis due to above Bacteremia with blood culture growing Gram-positive cocci Ruled out DVT Ruled out pulmonary embolism Vascular dementia? - CXR: Bibasilar areas of airspace disease with a accompanying atelectasis in the left base. - lower extremity Doppler: No right or left femoropopliteal venous thrombosis. - V/Q scan showed low probability for PE - IV vancomycin - discontinued IV cefepime on 08/09/2024 - started IV meropenem on 08/09/2024 - midodrine 10 mg t.i.d. - IV albumin - blood culture + for Staph hominis sensitive to vancomycin - repeat blood cultures came back negative - repeat chest x-ray from 08/08/2024 shows worsening bilateral perihilar peribronchial thickening and right lower lobe airspace disease and atelectasis. - head CT: No acute intracranial abnormality. Chronic right frontal infarct. Similar bifrontal subdural fluid collections. Frontal and ethmoid sinus disease. Mild bilateral mastoid effusions, new from prior. - removed HD catheter and sent the tip for culture, pt will have 2 catheter free days - respiratory culture grew Staph hemolyticus sensitive to only vanco, tetracycline and linezolid, started doxycycline on 08/12/24 - HD cath placement done today ESRD on hemodialysis Saturday, Saturday and Saturday History of polycystic kidney disease Coagulopathy due to above? Hematuria - nephrology consulted - currently holding patient's home dose Eliquis as INR currently >2 Left shoulder chronic fracture Left 4 through 7 rib fracture - acetaminophen 650 mg p.o. t.i.d. - IV morphine 2 mg q.4 hours as needed for severe pain Hypertension Dyslipidemia - monitor Goals of care: Full code, discussed for >16 minutes on 08/06/2024 Plan discussed with patient Plan discussed with Dr. Tipton Plan discussed with: Patient, Other (RN) My Orders My Orders Orders - MICHELLE GOODEN RESIDENT Procedure Category Date Status Time D/C Sitter ORDERS 08/12/24 Transmitted 14:38 Date of Service: Aug 13, 2024 Billing Provider: RONNI TIPTON MD Common Visit Codes: [id number] INP/OBS CARE(MOD) MICHELLE GOODEN RESIDENT Aug 13, 2024 06:47 RONNI TIPTON MD Aug 17, 2024 12:47
--- NOTE | 2024-08-13 09:33 | CONS ---
Pharmacy Clinical Information: CQM HF (missing EBBB, SGLT2). Patient has ESRD on HD, per lexidrug recommended to avoid use of SGLT2 in this population. Additionally patient BP is low, EBBB not recommended at this time. Per physician notes, patient has an EF of 40%, starting GDMT should be done at the discretion of cardiology team. SHAYNA MARCANO PHARMACIST Aug 13, 2024 09:33
[2024-08-13] MEDS: SODIUM CHL 0.9% 1000 ML BAG XX ONE (14:00)
--- NOTE | 2024-08-13 14:00 | DVHPN2 ---
Progress Note Date Seen: Aug 13, 2024 Medical Necessity Reason Pt with a Central, PICC or Fol: No Objective vital signs Vital Sign Date Time Temp Pulse Resp B/P (MAP) Pulse Ox O2 Delivery O2 Flow Rate FiO2 08/13/24 12:58 97.5 74 18 140/29 (66) 97 97.5 08/13/24 12:04 Nasal Cannula* 2 28 Total Intake and Output 08/12/24 08/12/24 08/13/24 15:00 23:00 07:00 Intake Total 470 ml 1280 ml Balance 470 ml 1280 ml medications Current Medications Medications Dose Ordered Sig/Cameron Route Start Time Stop Time Status Last Admin Dose Admin Sodium Chloride 10 ml Q8HR IV 08/05/24 22:00 08/13/24 06:34 10 ML Morphine Sulfate 2 mg Q4HPRN PRN IV 08/05/24 21:30 08/06/24 18:47 2 MG Vancomycin HCl 0 ml @ 0 mls/hr UD IV 08/06/24 07:15 Acetaminophen 650 mg TID PO 08/06/24 14:00 08/13/24 06:22 650 MG Acetaminophen/ Hydrocodone Bitart 1 tab Q4HPRN PRN PO 08/09/24 08:45 08/12/24 21:24 1 TAB Meropenem 50 ml @ 17 mls/hr HS IV 08/09/24 22:00 08/12/24 21:24 17 MLS/HR Levalbuterol HCl 0.625 mg Q6HR NEB 08/09/24 18:00 08/13/24 12:04 0.625 MG Ipratropium [place] 0.5 mg Q6HR NEB 08/09/24 18:00 08/13/24 12:04 0.5 MG Doxycycline Hyclate 100 ml @ 50 mls/hr Q12H IV 08/12/24 10:30 08/13/24 11:13 50 MLS/HR Examination: GENERAL:Normal, CVS:Normal, ABDOMEN:Normal laboratory and microbiology Laboratory Tests 08/13/24 04:58 Test 08/13/24 04:58 Range/Units Serum Glucose 79 74-106 mg/dL Microbiology Date/Time Source Procedure Growth Status 08/11/24 16:05 Stool Clostridium difficile Toxin Assay - Final Complete 08/11/24 08:50 Catheter Tip Other Aerobic Culture - Preliminary Resulted 08/09/24 15:57 Sputum Gram Stain - Final Complete 08/09/24 15:57 Respiratory Culture - Final Staphylococcus haemolyticus Complete 08/08/24 14:38 Blood Blood Culture - Preliminary NO GROWTH AFTER 72 HOURS OF INCUBATION. Resulted Problem List/Assessment/Plan Problem List/Assessment/Plan ESRD on hemodialysis Acute hypoxic respiratory failure Congestive heart failure exacerbation, ejection fraction 40% Sepsis staph bacteremia STaph PNA Anemia of chronic kidney disease hyperkalemia Dialysis today after catheter 2k bath Epogen 4000 IV 3x a week Fluid restrictions Midodrine for blood pressure support Renal diet ID , vancomycin rec x 2 weeks post treatment Plan discussed with: Patient LUDIVINA TABARES MD Aug 13, 2024 13:59
[2024-08-13] MEDS: HEPARIN SODIUM (PORCINE) 5000 UNITS/ML 1ML VIAL ONE (14:03)
[2024-08-13] MEDS: fentaNYL CITRATE 100 MCG/2 ML VL ONE (14:04)
[2024-08-13] MEDS: MIDAZOLAM HCL 2MG/2ML 2ml VIAL (1mg/ml) ONE (14:04)
[2024-08-13] MEDS: LIDOCAINE 2%HCL (LOCAL ANESTH.) INJ 20ML MDV ONE (14:04)
--- NOTE | 2024-08-13 16:04 | DVH ---
XY Insertion of Venous Cath, HISTORY: HD CATH PROCEDURE: Informed consent was obtained. The patient was placed supine on the interventional table. A limited localization ultrasound of the right neck base was obtained. The right neck base and upper chest were prepped with chlorhexidine which was allowed to dry and draped in the usual sterile fashio n. Time out was performed. IV sedation was administered. The skin and the soft tissues were infiltrat ed with 1% Lidocaine mixed with Epinephrine. With real-time ultrasound guidance, the internal jugular vein was accessed with a micropuncture kit, and an image documenting patency was recorded to PACS. A subcutaneous tunneled tract was created from the right upper chest to the venotomy site. A 14.5 Fren [address] [place] [address], 19 cm long hemodialysis catheter was advanced through the tunneled tract. Fluoroscopy was used to advance a guidewire through the internal jugular vein into the inferior vena cava. Following serial dilatation, a 15 [place] peel-away sheath was introduced, though which was adva nced the catheter into the right atrium. The catheter tip position was confirmed with fluoroscopy. Th ere was satisfactory flow in both lumens. The catheter lumens were flushed with saline and heparin wa s left indwelling in the catheter. A post-procedure image of the chest was obtained. The neck incisio n site was closed with a Vicryl suture and dressed sterilely. The catheter was sutured at the skin corado rface and exit site also dressed sterilely. No immediate complication was identified. DAP 6 mGy FLUOROSCOPY TIME: 0.9 minutes. SEDATION: Dr. Fernando Varner was personally responsible for the administration of moderate sedation during the procedure performed, including the use of an independent trained observer who had no other duties during the procedure. The drugs utilized were IV fentanyl and versed (see nursing log for details). The total time of supervision by the attending physician was approximately 30 minutes. FINDINGS: Post procedure image demonstrates smooth course of the hemodialysis catheter with the tip in the right atrium. IMPRESSION: Placement of 14.5 [place] [address], 19 cm long hemodialysis catheter through right internal jugular vein. Plan: Please contact IR for removal when no longer needed.
[2024-08-14] VITALS (19 sets, daily range): BP systolic 113–157; BP diastolic 32–94; PULSE 73–87; RESP 15–20; TEMP 97.4–98.8; O2SAT 94–100
[2024-08-14 05:20] LABS: Anion Gap 12 (5-15); Carbon Dioxide 28 mmol/L (20-31); Chloride 100 mmol/L (98-107); Potassium 4.3 mmol/L (3.5-5.1); Sodium 140 mmol/L (136-145)
[2024-08-14 05:26] LABS: BUN/Creatinine Ratio 5.6 (10.0-20.0); Glucose 90 mg/dL (74-106)
[2024-08-14 05:30] LABS: Basophils # (auto) 0.4 10 ^3/uL (0-0.2); Basophils % (auto) 4.5 % (0.0-2.0); Eosinophils # (auto) 0.4 10 ^3/uL (0-0.8); Eosinophils % (auto) 4.7 % (0.0-7.0); Hematocrit 33.5 % (41.0-53.0); Hemoglobin 10.9 g/dL (13.5-17.5); Lymphocytes # (auto) 1.1 10 ^3/uL (0.4-5.4); Lymphocytes % (auto) 11.7 % (10.0-50.0); Mean Corpuscular Hemoglobin 29.2 pg (28.0-32.0); Mean Corpuscular Hgb Conc. 32.6 g/dL (32.0-36.0); Mean Corpuscular Volume 89.5 fL (80.0-100.0); Monocytes # (auto) 0.8 10 ^3/uL (0-1.3); Neutrophils # (auto) 6.3 10 ^3/uL (1.6-8.6); Neutrophils % (auto) 70.1 % (37.0-80.0); Nucleated Red Blood Cells % 0.1 %; Platelet Count (auto) 91 10^3/uL (140-450); Red Blood Cells 3.75 10^6/uL (4.5-5.90)
[2024-08-14 05:40] LABS: Blood Urea Nitrogen 34 mg/dL (9-23); Calcium 8.5 mg/dL (8.7-10.4)
--- NOTE | 2024-08-14 11:36 | DVH ---
CHEST RADIOGRAPH Indication: Post HD cath placement Technique: The skin over the existing catheter was sterilely prepped, draped, and anesthetized with 1% lidocaine with epinephrine. The tunneled tract was opened and catheter were then removed using a combination of blunt and sharp dissection. Sterile dressings were applied. Comparison: XY CHEST PORTABLE on DOS: 08/11/24, XY CHEST PORTABLE on DOS: 08/08/24, XY CHEST PORTABLE o n DOS: 08/05/24, XY CHEST XRAY 1 VIEW on DOS: 05/27/24, XY CHEST XRAY 1 VIEW on DOS: 08/05/23 FINDINGS: Lines and Tubes: Right tunneled hemodialysis catheter tip in the cavoatrial junction. Lungs: No focal consolidation. Pleura: No effusion. No pneumothorax. Cardiomediastinal contours: cardiomegaly Bones: No acute osseous abnormality. IMPRESSION: Cardiomegaly with mild CHF
[2024-08-14 13:15] LABS: Basophils # (auto) 0.2 10 ^3/uL (0-0.2); Basophils % (auto) 1.4 % (0.0-2.0); Eosinophils # (auto) 0.4 10 ^3/uL (0-0.8); Eosinophils % (auto) 3.9 % (0.0-7.0); Hematocrit 35.7 % (41.0-53.0); Hemoglobin 11.5 g/dL (13.5-17.5); Lymphocytes # (auto) 1.4 10 ^3/uL (0.4-5.4); Lymphocytes % (auto) 13.5 % (10.0-50.0); Mean Corpuscular Hgb Conc. 32.2 g/dL (32.0-36.0); Monocytes # (auto) 1.3 10 ^3/uL (0-1.3); Monocytes % (auto) 12.2 % (0.0-12.0); Neutrophils # (auto) 7.4 10 ^3/uL (1.6-8.6); Nucleated Red Blood Cells % 0.2 %; Platelet Count (auto) 108 10^3/uL (140-450); Red Blood Cells 3.97 10^6/uL (4.5-5.90); Red Cell Distribution Width 19.1 % (11.8-14.3); White Blood Cell 10.7 10^3/uL (4.4-10.8)
--- NOTE | 2024-08-14 13:31 | DVHDSRES ---
Discharge Summary Date of Admission Resident Creating Document: MICHELLE GOODEN RESIDENT Aug 05, 2024 at 21:25 Date of Discharge: Aug 14, 2024 Labs/Diagnostic Data: Laboratory Results Test 08/14/24 12:54 08/14/24 04:52 08/13/24 19:28 08/10/24 23:00 White Blood Count 10.7 10^3/uL (4.4-10.8) Red Blood Count 3.97 10^6/uL (4.5-5.90) Hemoglobin 11.5 g/dL (13.5-17.5) Hematocrit 35.7 % (41.0-53.0) Mean Corpuscular Volume 90.0 fL (80.0-100.0) Mean Corpuscular Hemoglobin 29.0 pg (28.0-32.0) Mean Corpuscular Hemoglobin Concent 32.2 g/dL (32.0-36.0) Red Cell Distribution Width 19.1 % (11.8-14.3) Platelet Count 108 10^3/uL (140-450) Mean Platelet Volume 8.1 fL (6.9-10.8) Neutrophils (%) (Auto) 69.0 % (37.0-80.0) Lymphocytes (%) (Auto) 13.5 % (10.0-50.0) Monocytes (%) (Auto) 12.2 % (0.0-12.0) Eosinophils (%) (Auto) 3.9 % (0.0-7.0) Basophils (%) (Auto) 1.4 % (0.0-2.0) Neutrophils # (Auto) 7.4 10 ^3/uL (1.6-8.6) Lymphocytes # (Auto) 1.4 10 ^3/uL (0.4-5.4) Monocytes # (Auto) 1.3 10 ^3/uL (0-1.3) Eosinophils # (Auto) 0.4 10 ^3/uL (0-0.8) Basophils # (Auto) 0.2 10 ^3/uL (0-0.2) Nucleated Red Blood Cells 0.2 % Sodium Level 140 mmol/L (136-145) Potassium Level 4.3 mmol/L (3.5-5.1) Chloride Level 100 mmol/L (98-107) Carbon Dioxide Level 28 mmol/L (20-31) Anion Gap 12 (5-15) Blood Urea Nitrogen 34 mg/dL (9-23) Creatinine 6.10 mg/dL (0.700-1.30) Glomerular Filtration Rate Calc 10 mL/min (>90) BUN/Creatinine Ratio 5.6 (10.0-20.0) Serum Glucose 90 mg/dL (74-106) Calcium Level 8.5 mg/dL (8.7-10.4) Random Vancomycin Level 23.7 ug/mL (5-10) Total Bilirubin 0.7 mg/dL (0.2-1.0) Aspartate Amino Transferase (AST) 19 U/L (13-40) Alanine Aminotransferase (ALT) < 9 U/L (7-40) Alkaline Phosphatase 142 U/L (46-116) Ammonia < 10 umol/L (11-32) Total Protein 6.3 g/dL (5.7-8.2) Albumin 2.6 g/dL (3.2-4.8) Test 08/10/24 05:41 08/08/24 09:30 08/06/24 02:45 08/05/24 22:09 Prothrombin Time 14.9 sec (9.3-11.8) Prothrombin Time INR 1.46 (0.9-1.15) Activated Partial Thromboplast Time 32.4 SEC (24.5-34.5) Phosphorus Level 5.5 mg/dL (2.4-5.1) Magnesium Level 2.2 mg/dL (1.6-2.6) HIV (1&2) Antibody Negative (Negative) Influenza Type A Antigen Negative (Negative) Influenza Type B Antigen Negative (Negative) SARS-CoV-2 Antigen (Rapid) Negative (NEGATIVE) Hemoglobin A1c 5.1 % A1C (<5.7) Lactic Acid Level 1.4 mmol/L (0.4-2.0) Free Thyroxine (T4) Calculated 1.04 ng/dL (0.89-1.76) Total Triiodothyronine (TT3) 0.60 ng/mL (0.60-1.81) Plasma/Serum Blood Alcohol 4.5 mg/dL (<10) Test 08/05/24 17:24 08/05/24 16:17 Troponin I High Sensitivity 5 ng/L (</=54) Differential Total Cells Counted 100.0 (100) Neutrophils % (Manual) 77 (37.0-80.0) Band Neutrophils % (Manual) 9 Lymphocytes % (Manual) 4 (10.0-50.0) Monocytes % (Manual) 8 (0-12) Eosinophils % (Manual) 2 (0-7) Basophils % (Manual) 0 (0.0-2.0) Metamyelocytes % (manual) 0 Myelocytes % (Manual) 0 Promyelocytes % (Manual) 0 Blast Cells % (Manual) 0 Reactive Lymphocytes 0 Platelet Estimate Decreased Large Platelets Few D-Dimer, Quantitative 13.94 mg/L FEU (0.0-0.49) B-Type Natriuretic Peptide 113.47 pg/mL (0-100) Thyroid Stimulating Hormone (TSH) 4.97 uIU/mL (0.55-4.78) Other Laboratory Tests 08/14/24 12:54 08/14/24 04:52 Brief Hx & Hospital Course: Patient is a 59-year-old male with past medical history of ESRD on HD Saturday, autosomal dominant polycystic kidney disease, CVA x4 with residual left-sided weakness, dyslipidemia, hypertension, cataract with partial vision loss, chronic fractures, who came in due to shortness of breath. According to the patient, for the past 2 weeks he has been experiencing shortness of breaths and left shoulder pain secondary to a fall he sustained 2 weeks ago and fractured his left-sided ribs, multiple and left shoulder. Per patient, he has been having shortness of breaths for the last 2 weeks as breathing hurts his ribs. Patient is on hemodialysis via a left chest wall catheter, patient has not old right arm fistula which is nonfunctional. Chest x-ray showed bibasilar areas of airspace disease accompanying atelectasis in the left base. Hospital course: Lower extremity Doppler showed no right or left femoropopliteal venous thrombosis. V/Q scan showed low probability for PE. Patient was started on IV vancomycin and IV cefepime initially, however, cefepime was discontinued on 08/08/2024 and patient was started on IV meropenem as repeat Chest x-ray on 08/08/2024 which showed worsening bilateral perihilar peribronchial thickening and right lower lobe airspace disease and atelectasis. Owing to patient's continued soft blood pressure, midodrine 10 mg t.i.d. was also added along with IV albumin. Initial blood cultures were positive for staph hominis which was sensitive to vancomycin, repeat blood cultures came back negative. Patient's hemodialysis catheter was removed, and patient was given 2 catheter free days while the a catheter tip was sent for culture, catheter tip culture came back negative for anaerobic as well as aerobic bacteria. Hemodialysis catheter was placed again and patient continued hemodialysis sessions without complications. Patient's respiratory culture grew Staph haemolyticus which was sensitive to vanco, tetracycline and linezolid, subsequently we started patient on doxycycline on 08/12/2024. On the day of discharge, patient appeared well, more alert and talkative and had stable vital signs, C diff culture came back negative, catheter tip culture came back negative and repeat blood culture was also negative. Details of patient's hospitalization and course of treatment was discussed with patient and daughter at bedside in great detail were all questions were answered and concerns were addressed. Patient's hospital course was uncomplicated. Patient was discharged with IV vancomycin after dialysis for 2 weeks. General Appearance: Cooperative. NAD Head Exam: Normal inspection Neck Exam: Normal inspection. Non-tender. Normal alignment Pulmonary/Respiratory: Chest non-tender. Clear bilateral breath sounds, no crackles, no wheezing. Cardiovascular/Chest: Regular rate and rhythm. No murmurs. No JVD. Abdominal Exam: Normal bowel sounds. Soft. normal abdomen, no visible veins, Nontender. No hepatospenomegaly. No masses Ankle Exam: Negative ankle edema Upper extremities: Decreased movement in the left upper extremity and left lower extremity Lower extremities: Negative lower extremity edema Neuro/Mental Status: A&O x4. Coherent. Thoughts/Psych: Normal thought pattern. Appropriate mood and affect. Good judgement and insight Skin Exam: Normal inspection. Normal color. Warm. Dry Condition at Discharge: Fair Final Diagnosis/Problems List Community-acquired pneumonia, Gram-positive versus Gram-negative Sepsis due to above Bacteremia with blood culture growing Gram-positive cocci Ruled out DVT Ruled out pulmonary embolism Vascular dementia? ESRD on hemodialysis Saturday, Saturday and Saturday History of polycystic kidney disease Coagulopathy due to above? Hematuria Left shoulder chronic fracture Left 4 through 7 rib fracture Hypertension Dyslipidemia Discharge Disposition: Home Discharge Instruct/Medications Diet: Renal Activity: No Restrictions, As Tolerated Follow Up/Referral: Please follow up with PCP in 1-2 weeks Please follow up in the discharge clinic Medications: IV vancomycin with dialysis for 2 weeks Discharge Statement: "Patient was advised to return to the ER or call 911 if any headaches, dizziness, shortness of breath, chest pain, abdominal pain, bleeding, fevers, or worsening of medical condition. Patient was counseled about treatment plan, medications, possible side effects, patientverbalized understanding. All questions were answered to the best of my ability. This discharge took greater then 30 minutes in planning, reviewing documentation, counseling the patient, and discussing with other team members." ASSESSMENT ASSESSMENT Assessment Community-acquired pneumonia, Gram-positive versus Gram-negative Sepsis due to above Bacteremia with blood culture growing Gram-positive cocci Ruled out DVT Ruled out pulmonary embolism Vascular dementia? ESRD on hemodialysis Saturday, Saturday and Saturday History of polycystic kidney disease Coagulopathy due to above? Hematuria Left shoulder chronic fracture Left 4 through 7 rib fracture Hypertension Dyslipidemia Date of Service: Aug 16, 2024 Billing Provider: RONNI TIPTON MD Common Visit Codes: [id number] DISCH DAY >30min MICHELLE GOODEN Aug 14, 2024 13:31 RONNI TIPTON MD Aug 17, 2024 12:49
--- NOTE | 2024-08-14 15:45 | DVHPN2 ---
Progress Note Date Seen: Aug 14, 2024 Medical Necessity Reason Pt with a Central, PICC or Fol: No Subjective Patient reports: Feels better Objective vital signs Vital Sign Date Time Temp Pulse Resp B/P (MAP) Pulse Ox O2 Delivery O2 Flow Rate FiO2 08/14/24 13:00 97.6 82 15 116/32 (60) 97 97.6 08/14/24 11:10 Nasal Cannula 3.0 08/14/24 11:10 32 Total Intake and Output 08/13/24 08/13/24 08/14/24 15:00 23:00 07:00 Intake Total 100 ml 100 ml 220 ml Balance 100 ml 100 ml 220 ml medications Current Medications Medications Dose Ordered Sig/Cameron Route Start Time Stop Time Status Last Admin Dose Admin Sodium Chloride 10 ml Q8HR IV 08/05/24 22:00 08/14/24 14:00 10 ML Morphine Sulfate 2 mg Q4HPRN PRN IV 08/05/24 21:30 08/06/24 18:47 2 MG Vancomycin HCl 0 ml @ 0 mls/hr UD IV 08/06/24 07:15 Acetaminophen 650 mg TID PO 08/06/24 14:00 08/14/24 14:59 650 MG Acetaminophen/ Hydrocodone Bitart 1 tab Q4HPRN PRN PO 08/09/24 08:45 08/12/24 21:24 1 TAB Meropenem 50 ml @ 17 mls/hr HS IV 08/09/24 22:00 08/13/24 23:31 17 MLS/HR Levalbuterol HCl 0.625 mg Q6HR NEB 08/09/24 18:00 08/14/24 11:10 0.625 MG Ipratropium [place] 0.5 mg Q6HR NEB 08/09/24 18:00 08/14/24 11:09 0.5 MG Doxycycline Hyclate 100 ml @ 50 mls/hr Q12H IV 08/12/24 10:30 08/14/24 09:27 50 MLS/HR Examination: GENERAL:Normal, CVS:Normal laboratory and microbiology Laboratory Tests 08/14/24 12:54 08/14/24 04:52 Test 08/14/24 04:52 Range/Units Serum Glucose 90 74-106 mg/dL Microbiology Date/Time Source Procedure Growth Status 08/11/24 16:05 Stool Clostridium difficile Toxin Assay - Final Complete 08/11/24 08:50 Catheter Tip Other Aerobic Culture - Preliminary Resulted 08/09/24 15:57 Sputum Gram Stain - Final Complete 08/09/24 15:57 Respiratory Culture - Final Staphylococcus haemolyticus Complete 08/08/24 14:38 Blood Blood Culture - Final NO GROWTH AFTER 5 DAYS OF INCUBATION. Complete Problem List/Assessment/Plan Problem List/Assessment/Plan ESRD on hemodialysis Acute hypoxic respiratory failure Congestive heart failure exacerbation, ejection fraction 40% Sepsis staph bacteremia STaph PNA Anemia of chronic kidney disease hyperkalemia return to outpatient dialysis unit for regular scheduled treatments s/p new tunnel dialysis catheter vancomycin rec x 2 weeks post treatment. Dialysis unit will provide and dose medication Plan discussed with: Patient My Orders My Orders Orders - LUDIVINA TABARES MD Procedure Category Date Status Time Hepatitis B Surface LAB 08/13/24 In Process Antigen 15:58 LUDIVINA TABARES MD Aug 14, 2024 15:45
[2024-08-15] VITALS (7 sets, daily range): BP systolic 120–150; BP diastolic 31–90; PULSE 77–82; RESP 17–18; TEMP 97.3–98; O2SAT 95–100
--- NOTE | 2024-08-15 06:27 | DVHPNRES ---
Progress Note Date Seen: Aug 15, 2024 Resident Creating Document: LANA HOPKINS RESIDENT Medical Necessity Reason Pt with a Central, PICC or Fol: No Subjective Review of Systems Patient seen and examined at bedside. Currently has no new complaints, discharge was postponed due to transportation issues. Daughter planning to transferred patient home today. Objective vital signs Vital Sign Date Time Temp Pulse Resp B/P (MAP) Pulse Ox O2 Delivery O2 Flow Rate FiO2 08/15/24 05:00 98.0 82 18 146/90 (108) 99 98.0 08/14/24 23:59 Nasal Cannula 3.0 08/14/24 23:59 32 Total Intake and Output 08/14/24 08/14/24 08/15/24 15:00 23:00 07:00 Intake Total 100 ml 400 ml 1650 ml Output Total 2 ml Balance 100 ml 400 ml 1648 ml medications Current Medications Medications Dose Ordered Sig/Cameron Route Start Time Stop Time Status Last Admin Dose Admin Sodium Chloride 10 ml Q8HR IV 08/05/24 22:00 08/15/24 06:23 10 ML Vancomycin HCl 0 ml @ 0 mls/hr UD IV 08/06/24 07:15 Acetaminophen 650 mg TID PO 08/06/24 14:00 08/15/24 06:23 650 MG Acetaminophen/ Hydrocodone Bitart 1 tab Q4HPRN PRN PO 08/09/24 08:45 08/12/24 21:24 1 TAB Meropenem 50 ml @ 17 mls/hr HS IV 08/09/24 22:00 08/14/24 23:50 17 MLS/HR Levalbuterol HCl 0.625 mg Q6HR NEB 08/09/24 18:00 08/14/24 23:59 0.625 MG Ipratropium [place] 0.5 mg Q6HR NEB 08/09/24 18:00 08/14/24 23:59 0.5 MG Doxycycline Hyclate 100 ml @ 50 mls/hr Q12H IV 08/12/24 10:30 08/14/24 21:42 50 MLS/HR Examination Patient lying in bed, in no acute distress General: Lucid, cachectic, afebrile, mucosae are moist. Presents tunneled catheter on right subclavian area, no active bleeding. Cardiovascular: Normal S1 and S2. No murmurs, gallops or rubs Respiratory: Normal ventilation mechanics. Clear lung sounds on auscultation Abdomen: Soft, nontender, no organomegaly, normal bowel sounds MSK/skin: Mobilizes 4 limbs, decreased mobility of bilateral upper limbs. Has bilateral clavicular deformity. Skin is dry and warm. Neurological: Oriented in 3 spheres. No motor no sensitive deficits. Pupils are isocoric and reactive laboratory and microbiology Laboratory Tests 08/14/24 04:52 Test 08/14/24 04:52 Range/Units Serum Glucose 90 74-106 mg/dL Microbiology Date/Time Source Procedure Growth Status 08/11/24 16:05 Stool Clostridium difficile Toxin Assay - Final Complete 08/11/24 08:50 Catheter Tip Other Aerobic Culture - Preliminary Resulted 08/09/24 15:57 Sputum Gram Stain - Final Complete 08/09/24 15:57 Respiratory Culture - Final Staphylococcus haemolyticus Complete 08/08/24 14:38 Blood Blood Culture - Final NO GROWTH AFTER 5 DAYS OF INCUBATION. 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 Tipton, patient and nurses: Patient was in condition to be discharged yesterday, was postponed due to transportation issues. Discontinue aspirin and clopidogrel, indicated apixaban (2.5 mg p.o. b.i.d.), and also IV antibiotics during hemodialysis session, discussed with bow rehairer. Have continued rest of home medication. Follow up seven days with discharge Clinic, with bow rehairer and PCP. Plan discussed with: Patient, Daughter, Other (Nurses) My Orders My Orders Orders - LANA HOPKINS RESIDENT Procedure Category Date Status Time Chest Xray 1 View XY 08/14/24 Resulted 10:32 * Instructional Coach CONS 08/14/24 Transmitted Consult Complete Blood Count LAB 08/15/24 In Process 04:00 Creatinine LAB 08/15/24 In Process 04:00 Vancomycin,Random LAB 08/15/24 In Process 04:00 Discharge DISCHARGE 08/14/24 Transmitted 15:46 Date of Service: Aug 15, 2024 Billing Provider: RONNI TIPTON MD Common Visit Codes: [id number] INP/OBS CARE(MOD) LANA HOPKINS RESIDENT Aug 15, 2024 06:27 RONNI TIPTON MD Aug 17, 2024 12:48
[2024-08-15 06:29] LABS: Basophils # (auto) 0.1 10 ^3/uL (0-0.2); Basophils % (auto) 0.9 % (0.0-2.0); Eosinophils # (auto) 0.3 10 ^3/uL (0-0.8); Eosinophils % (auto) 4.4 % (0.0-7.0); Hematocrit 33.9 % (41.0-53.0); Hemoglobin 10.7 g/dL (13.5-17.5); Lymphocytes # (auto) 1.2 10 ^3/uL (0.4-5.4); Lymphocytes % (auto) 14.9 % (10.0-50.0); Mean Corpuscular Hemoglobin 28.7 pg (28.0-32.0); Mean Corpuscular Hgb Conc. 31.6 g/dL (32.0-36.0); Mean Corpuscular Volume 90.8 fL (80.0-100.0); Monocytes % (auto) 12.7 % (0.0-12.0); Neutrophils # (auto) 5.3 10 ^3/uL (1.6-8.6); Neutrophils % (auto) 67.1 % (37.0-80.0); Nucleated Red Blood Cells % 0.3 %; Platelet Count (auto) 91 10^3/uL (140-450); Red Blood Cells 3.73 10^6/uL (4.5-5.90); Red Cell Distribution Width 19.8 % (11.8-14.3); White Blood Cell 7.9 10^3/uL (4.4-10.8)
[2024-08-15] MEDS ORDERED: APIX2.5T PO (17:02)
== END 2024-08-15 10:34 | disposition home or self-care (01) | DRG 720 ==
LOC: EDBD 15:25 → ER 15:25 → OVERFLOW 21:25 → EAST 08-06 18:45 → TELE-EAST 08-08 17:22
PROVIDERS: ADMIT Student in an Organized Health Care Education/Training Program; ATTEND Emergency Medicine
PROC: 5A1D70Z Performance of Urinary Filtration, Intermittent, Less than 6 Hours Per Day (ICD-10-PCS; 2024-08-07)
PROC: 5A1D70Z Performance of Urinary Filtration, Intermittent, Less than 6 Hours Per Day (ICD-10-PCS; 2024-08-10)
PROC: 02PYX3Z Removal of Infusion Device from Great Vessel, External Approach (ICD-10-PCS; 2024-08-11)
PROC: 0JH63XZ Insertion of Tunneled Vascular Access Device into Chest Subcutaneous Tissue and Fascia, Percutaneous Approach (ICD-10-PCS; principal; 2024-08-13)
PROC: 02H633Z Insertion of Infusion Device into Right Atrium, Percutaneous Approach (ICD-10-PCS; 2024-08-13)
PROC: B5181ZA Fluoroscopy of Superior Vena Cava using Low Osmolar Contrast, Guidance (ICD-10-PCS; 2024-08-13)
PROC: B548ZZA Ultrasonography of Superior Vena Cava, Guidance (ICD-10-PCS; 2024-08-13)
PROC: 5A1D70Z Performance of Urinary Filtration, Intermittent, Less than 6 Hours Per Day (ICD-10-PCS; 2024-08-13)
DX: A41.1 Sepsis due to other specified staphylococcus (principal); J96.01 Acute respiratory failure with hypoxia; J15.69 Pneumonia due to other Gram-negative bacteria; J15.29 Pneumonia due to other staphylococcus; I13.2 Hypertensive heart and chronic kidney disease with heart failure and with stage 5 chronic kidney disease, or end stage renal disease; D68.9 Coagulation defect, unspecified; N18.6 End stage renal disease; D63.1 Anemia in chronic kidney disease; S22.42XA Multiple fractures of ribs, left side, initial encounter for closed fracture; I50.9 Heart failure, unspecified; I69.354 Hemiplegia and hemiparesis following cerebral infarction affecting left non-dominant side; Z99.2 Dependence on renal dialysis; Z20.822 Contact with and (suspected) exposure to COVID-19; G89.21 Chronic pain due to trauma; R31.9 Hematuria, unspecified; E78.5 Hyperlipidemia, unspecified; F01.50 Vascular dementia, unspecified severity, without behavioral disturbance, psychotic disturbance, mood disturbance, and anxiety; E87.5 Hyperkalemia; S42.002A Fracture of unspecified part of left clavicle, initial encounter for closed fracture; W18.39XA Other fall on same level, initial encounter; E87.6 Hypokalemia; R79.89 Other specified abnormal findings of blood chemistry; Z88.5 Allergy status to narcotic agent; Z79.1 Long term (current) use of non-steroidal anti-inflammatories (NSAID); Z79.899 Other long term (current) drug therapy; Z99.81 Dependence on supplemental oxygen; Z79.2 Long term (current) use of antibiotics; Z79.82 Long term (current) use of aspirin; Z79.891 Long term (current) use of opiate analgesic; Z80.0 Family history of malignant neoplasm of digestive organs; Z83.3 Family history of diabetes mellitus; Z82.49 Family history of ischemic heart disease and other diseases of the circulatory system; Z87.891 Personal history of nicotine dependence; Q61.2 Polycystic kidney, adult type; Y93.89 Activity, other specified; Y92.89 Other specified places as the place of occurrence of the external cause; Y99.8 Other external cause status; Z87.01 Personal history of pneumonia (recurrent)
CPT/HCPCS: 36415; 36558; 70450; 71045; 77001; 78582; 80048; 80053; 80202; 80320; 82140; 82565; 83036; 83605; 83735; 83880; 84100; 84439; 84443; 84480; 84484; 85007; 85025; 85027; 85379; 85610; 85730; 86703; 87040; 87070; 87075; 87077; 87081; 87186; 87205; 87340; 87426; 87493; 87804; 90935; 93005; 93970; 94640; 99152; 99291; C1894; G0378; J1642; J2003; J2185; J2250

== ENCOUNTER 2024-09-13 09:47 | Inpatient (IN) | payer MEDICAID ==
[~2024-09-13] VITALS: Ht 182.9 cm; Wt 86.2 kg
[2024-09-13] VITALS (23 sets, daily range): BP systolic 97–123; BP diastolic 50–78; PULSE 86–105; RESP 16–58; TEMP 98–98.8; O2SAT 92–98
[~2024-09-13 09:47] MED LIST changes: +APIX2.5T PO; +ASPI-325 PO; -ASPI1TAB20 PO; +ATOR40TA52 PO; +CINA90TA10 PO; -CLOP75TA70 PO
--- NOTE | 2024-09-13 10:33 | ED.PDOC ---
SOB-HPI HPI Comments 59 year old male ELENA presents to the ED with chief complaint of SOB. Patient reports that he has been experiencing SOB since yesterday with associated wheezing according to daughter. EMS relays that the patient is currently on 2L at home normally, but was bumped up to 4L due to his SOB. Patient states he gets dialysis on //. Patient denies any chest pain, cough, congestion, fever, chills, dizziness, or headache. Chief Complaint: Shortness of Breath Time Seen by MD: 10:30 Primary Care Provider: UNKNOWN Reviewed notes: Nurses Notes, Mastic Floor Layer Notes, Medications, Allergies Information Source: Patient, Emergency Med Personnel Mode of Arrival: EMS Severity: Moderate Timing: Hours Duration: Since onset Context: At Rest PE Risk Factors: None Prehospital treatment: None Modifying Factors: Nothing Associated Signs and Symptoms: Wheeze Past Medical History PAST MEDICAL HISTORY: CVA, ESRD, High Lipids, HTN Surgical History: Denies all surgeries Family History Family History: Reviewed,noncontributory to illness, Family hx of Cancer Social History Smoker: Non-Smoker Alcohol: Denies ETOH Use Drugs: Denies Drug Use Lives In: Home Constitutional: denies: chills, diaphoresis, fatigue, fever, malaise, sweats, weakness, others EENTM: denies: blurred vision, double vision, ear bleeding, ear discharge, ear drainage, ear pain, ear ringing, eye pain, eye redness, hearing loss, mouth pain, mouth swelling, nasal discharge, nose bleeding, nose congestion, nose pain, photophobia, tearing, throat pain, throat swelling, voice changes, others Respiratory: reports: shortness of breath, wheezing; denies: cough, hemoptysis, orthopnea, SOB at rest, SOB with excertion, stridor, others Cardiovascular: denies: chest pain, dizzy spells, diaphoresis, Dyspnea on exertion, edema, irregular heart beat, left arm pain, lightheadedness, palpitations, PND, syncope, others Gastrointestinal: denies: abdomen distended, abdominal pain, blood streaked bowels, constipated, diarrhea, dysphagia, difficulty swallowing, hematemesis, melena, nausea, poor appetite, poor fluid intake, rectal bleeding, rectal pain, vomiting, others Genitourinary: denies: burning, dysuria, flank pain, frequency, hematuria, incontinence, penile discharge, penile sore, pain, testicle pain, testicle swelling, urgency, others Neurological: denies: dizziness, fainting, headache, left sided numbness, left sided weakness, numbness, paresthesia, pre-existing deficit, right sided numbness, right sided weakness, seizure, speech problems, tingling, tremors, weakness, others Musculoskeletal: denies: back pain, gout, joint pain, joint swelling, muscle pain, muscle stiffness, neck pain, others Integumetry: denies: bruises, change in color, change in hair/nails, dryness, laceration, lesions, lumps, rash, wounds, others Allergic/Immunocompromised: denies: Difficulty Healing, Frequent Infections, Hives, Itching, others Hematologic/Lymphatic: denies: anemia, blood clots, easy bleeding, easy bruising, swollen glands, others Endocrine: denies: excessive hunger, excessive sweating, excessive thirst, excessive urination, flushing, intolerance to cold, intolerance to heat, unexplained weight gain, unexplained weight loss, others Psychiatric: denies: anxiety, bipolar disorder, depression, hopeless, panic disorder, schizophrenia, sleepless, suicidal, others All Other Systems: Reviewed and Negative Physical Exam General Appearance: Moderate Distress, Normal HEENT: Normal ENT Inspection, PERRL/EOMI Neck: Full Range of Motion, Non-Tender, Normal, Normal Inspection Respiratory: Accessory Muscle Use, Chest Non-Tender, Respiratory Distress Cardiovascular: No Edema, No JVD, No Murmur, No Gallop, Normal Peripheral Pulses, Tachycardia Breast Exam: Deferred Gastrointestinal: No Organomegaly, Non Tender, No Pulsatile Mass, Normal Bowel Sounds, Soft Genitalia: Deferred Pelvic: Deferred Rectal: Deferred Extremities: No calf tenderness, Normal capillary refill, Normal inspection, Normal range of motion, Non-tender, No pedal edema Musculoskeletal : Apperance: Normal Neurologic: Alert, bobbin winder tender II-XII nml as Tested, Motor Weakness, Normal Affect, Normal Mood, No Sensory Deficits Cerebellar Function: NOT DONE Reflexes: NOT DONE Skin: Dry, Normal Color, Warm Peripheral Pulses: 3+ Radial (R), 3+ Radial (L) Lymphatic: No Adenopathy Was a procedure done? Was a procedure done?: Yes Sedation Sedation?: No Central Line Recorder of insertion practice: Respiratory Practitioner Occupation of cuff setter: Attending Physician Indication: Hypotension, CVP monitoring, Volume resuscitation, Suspected infection Room prepared for procedure: Yes Respiratory Practitioner performed hand hygien: Yes Maximal sterile barrier precau: Mask/Eye shield, Sterile gown, Cap, Sterlie gloves, Large sterlie drape Skin Preparation: Chlorhexidine gluconate Skin preparation completely dr: Yes Insertion site: Right, Femoral Central line catheter type: [id number] dialysis Number of lumens: 3 Central line exchanged over a: No Antiseptic ointment applied to: No Post Assessment: Chest X-Ray, Proper placement Informed consent obtained: Yes Risks/benefits/alt described: Yes Differential Dx Differential Diagnosis: Anxiety, Asthma, Bronchitis, CHF, COPD X-Ray, Labs, Meds, VS Vital Signs Date Time Temp Pulse Resp B/P (MAP) Pulse Ox O2 Delivery O2 Flow Rate FiO2 09/13/24 12:30 73/19 09/13/24 12:15 85/55 09/13/24 12:05 98 100/49 Facial BiPAP Mask 35 09/13/24 12:00 101/15 09/13/24 12:00 102 101/15 (43) 97 09/13/24 11:45 32 97 Nasal Cannula* 4 36 09/13/24 11:45 88/42 09/13/24 11:30 77/17 09/13/24 11:15 82/19 09/13/24 11:06 90/24 09/13/24 10:00 98.8 105 36 100/49 (66) 92 98.8 09/13/24 10:00 105 34 94 Nasal Cannula* 4 36 09/13/24 09:58 106 09/13/24 09:57 98.0 106 22 87/43 (58) 99 98.0 Lab Test 09/13/24 11:13 Range/Units White Blood Count 24.2 H 4.4-10.8 10^3/uL Red Blood Count 2.63 L 4.5-5.90 10^6/uL Hemoglobin 7.6 L 13.5-17.5 g/dL Hematocrit 24.4 L 41.0-53.0 % Mean Corpuscular Volume 92.8 80.0-100.0 fL Mean Corpuscular Hemoglobin 29.0 28.0-32.0 pg Mean Corpuscular Hemoglobin Concent 31.2 L 32.0-36.0 g/dL Red Cell Distribution Width 19.8 H 11.8-14.3 % Platelet Count 138 L 140-450 10^3/uL Mean Platelet Volume 8.2 6.9-10.8 fL Neutrophils (%) (Auto) 37.0-80.0 % Lymphocytes (%) (Auto) 10.0-50.0 % Monocytes (%) (Auto) 0.0-12.0 % Basophils (%) (Auto) 0.0-2.0 % Neutrophils # (Auto) 1.6-8.6 10 ^3/uL Lymphocytes # (Auto) 0.4-5.4 10 ^3/uL Monocytes # (Auto) 0-1.3 10 ^3/uL Differential Total Cells Counted 100.0 100 Neutrophils % (Manual) 87 H 37.0-80.0 Band Neutrophils % (Manual) 0 Lymphocytes % (Manual) 9 L 10.0-50.0 Monocytes % (Manual) 4 0-12 Eosinophils % (Manual) 0 0-7 Basophils % (Manual) 0 0.0-2.0 Metamyelocytes % (manual) 0 Myelocytes % (Manual) 0 Promyelocytes % (Manual) 0 Blast Cells % (Manual) 0 Reactive Lymphocytes 0 Smudge Cells 3 /100 WBC Platelet Estimate Decreased Sodium Level 137 136-145 mmol/L Potassium Level 3.7 3.5-5.1 mmol/L Chloride Level 99 98-107 mmol/L Carbon Dioxide Level 28 20-31 mmol/L Anion Gap 10 5-15 Blood Urea Nitrogen 30 H 9-23 mg/dL Creatinine 5.13 H 0.700-1.30 mg/dL Glomerular Filtration Rate Calc 12 >90 mL/min BUN/Creatinine Ratio 5.8 L 10.0-20.0 Serum Glucose 73 L 74-106 mg/dL Lactic Acid Level 3.2 *H 0.4-2.0 mmol/L Calcium Level 7.0 L 8.7-10.4 mg/dL Troponin I High Sensitivity 6 </=54 ng/L B-Type Natriuretic Peptide 103.23 0-100 pg/mL Current Medications Medications (Trade) Dose Ordered Sig/Cameron Route Start Time Stop Time Status Last Admin Norepinephrine Bitartrate 250 ml @ 3.75 mls/hr Q24H IV 09/13/24 10:30 09/13/24 11:06 Piperacillin Sod/ Tazobactam Sod 100 ml @ 100 mls/hr ONCE ONCE IV 09/13/24 10:45 09/13/24 11:44 DC 09/13/24 11:22 Azithromycin 250 ml @ 125 mls/hr ONCE ONCE IV 09/13/24 10:45 09/13/24 12:44 09/13/24 11:22 Albuterol (Ventolin Medneb) 5 mg ONCE ONCE NEB 09/13/24 11:30 09/13/24 11:38 DC 09/13/24 11:44 Ipratropium [place] (Atrovent Medneb) 0.5 mg ONCE ONCE NEB 09/13/24 11:30 09/13/24 11:38 DC 09/13/24 11:44 Patient alert. Came in because of shortness a breath. Had to increase his oxygen content. Continued oxygen. Hypotensive. Started Levophed. He does get dialysis. Nephrology consultation. Reviewed his previous visit. Explained to the patient. Continue monitoring. EKG reviewed does not show any acute changes. Time of 1ST Reevaluation: 11:30 Reevaluation 1ST: Unchanged Patient Education/Counseling: Diagnosis, Treatment Family Education/Counseling: No Family Present Additional Information Previous visit documents reviewed: 08/05/24 for acute respiratory failure The following tests were ordered, and results were reviewed by me: CBC, BMP, BNP, EKG, Chest XR, Trop Additional Information was gathered from interviewing the following independent historians: EMS I reviewed and agreed with the following test results read by other providers: Chest XR I discussed treatment and results with medical personnel and: Patient Comprehensive systems review obtained and negative except for what is stated in the HPI. Departure 1 Departure Time of Disposition: 10:40 Impression: Primary Impression: Acute respiratory failure Qualified Codes: J96.01 - Acute respiratory failure with hypoxia Additional Impressions: CKD (chronic kidney disease) requiring chronic dialysis Hypotension Qualified Codes: I95.9 - Hypotension, unspecified Disposition: ADMITTED INPATIENT Admit to: Med Surg Condition: Guarded Critical Care Note Critical Care Time?: Yes (90 min-critical care time only) Critical care comment: Placed on oxygen Stability Stability form required: No Heart Score Heart Score: Heart Score Response (Comments) Value History Slightly Suspicious 0 EKG Normal 0 Age 45-64 1 Risk Factors >3 or Hx ASHD 2 Troponin Normal limit 0 Total 3 I personally scribed for MONIQUE DASH MD ([email or web address]) on 09/13/24 at 10:33. Electronically submitted by Maikol Kay ([email or web address]). I personally scribed for MONIQUE DASH MD ([email or web address]) on 09/13/24 at 12:41. Electronically submitted by Maikol Kay ([email or web address]). MONIQUE DASH MD Sep 13, 2024 10:33
[2024-09-13] MEDS ORDERED: SODIUM CHLORIDE 0.9% 1,000 ML IV ONE ×2 (10:45)
[2024-09-13] MEDS: NOREPINEPHRINE 8 MG/250ML KIT 250 ML IV SCH ×2 (11:06→17:35)
--- NOTE | 2024-09-13 11:12 | DVH ---
EXAM: XY CHEST PORTABLE HISTORY: sob COMPARISON: XY CHEST XRAY 1 VIEW on DOS: 08/14/24, XY CHEST PORTABLE on DOS: 08/11/24, XY CHEST PORTABL E on DOS: 08/08/24, XY CHEST PORTABLE on DOS: 08/05/24, XY CHEST XRAY 1 VIEW on DOS: 05/27/24 TECHNIQUE: Portable AP view of the chest was performed. FINDINGS: Right chest tunneled dialysis catheter is re-identified. Lung volumes are low. There is dif fuse interstitial prominence, increased versus prior chest x-ray. There is scarring and/or atelectas is in the left mid to lower lung. No pneumothorax. The heart is enlarged. The aortic arch is calcifi c. There is an old right distal clavicle fracture. There is an old left distal clavicle fracture vers us appearance due to distal clavicle resection. IMPRESSION: Cardiomegaly and increased interstitial prominence suggestive of worsening CHF.
--- NOTE | 2024-09-13 11:18 | ECG ---
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
[2024-09-13] MEDS: PIPERACILLIN-TAZOB 3.375GM 100 ML IV ONE (11:22)
[2024-09-13] MEDS: AZITHROMYCIN 500MG/ 250ML 250 ML IV ONE (11:22)
[2024-09-13 11:30] LABS: Hemoglobin 7.6 g/dL (13.5-17.5); Platelet Count (auto) 138 10^3/uL (140-450)
[2024-09-13 11:32] LABS: Hematocrit 24.4 % (41.0-53.0); Mean Corpuscular Hgb Conc. 31.2 g/dL (32.0-36.0); Mean Corpuscular Volume 92.8 fL (80.0-100.0); Red Blood Cells 2.63 10^6/uL (4.5-5.90); Red Cell Distribution Width 19.8 % (11.8-14.3); White Blood Cell 24.2 10^3/uL (4.4-10.8)
[2024-09-13 11:38] LABS: Band Neutrophils % (manual) 0; Basophils % (manual) 0 (0.0-2.0); Blast Cells 0; Eosinophils % (manual) 0 (0-7); Metamyelocytes % 0; Myelocytes % 0; Promyelocytes % 0; Reactive Lymphocytes 0
[2024-09-13] MEDS: ALBUTEROL SULF 2.5 MG/0.5ML(0.5%) NEB SOLN NEB ONE (11:44)
[2024-09-13] MEDS: IPRATROPIUM BROM 0.5 MG/2.5ML INH SOL NEB ONE (11:44)
[2024-09-13 11:45] LABS: Chloride 99 mmol/L (98-107); Potassium 3.7 mmol/L (3.5-5.1); Sodium 137 mmol/L (136-145)
[2024-09-13 11:46] LABS: Anion Gap 10 (5-15); Carbon Dioxide 28 mmol/L (20-31)
[2024-09-13 11:51] LABS: BUN/Creatinine Ratio 5.8 (10.0-20.0)
[2024-09-13 11:52] LABS: Blood Urea Nitrogen 30 mg/dL (9-23); Glucose 73 mg/dL (74-106)
[2024-09-13 11:54] LABS: Lactic Acid w/Reflex 3.2 mmol/L (0.4-2.0)
[2024-09-13 12:11] LABS: Lymphocytes % (manual) 9 (10.0-50.0); Monocytes % (manual) 4 (0-12); Platelet Estimate Decreased; Smudge Cells 3 /100 WBC
--- NOTE | 2024-09-13 12:29 | DVHHP2 ---
History of Present Illness Reason for Visit: Shortness of the breath History of Present Illness 59-year-old male past medical history CVA end-stage renal disease hyperlipidemia hypertension PermCath right chest wall chief complaint patient was at home with his daughter and he has been having shortness of the breath since yesterday. Patient usually will take 2 L nasal cannula he had increased his L to 4 L when come in patient was in severe distress had to be placed on BiPAP. Patient does get dialysis on Wednesdays and Fridays he received the full dialysis on Saturday. Patient's renal specialist is Dr. Rosales is group which we will be consulted. Patient was also found to be hypertensive in ED so Levophed drip was started. Patient also had an elevated lactate due to sepsis. Patient was found to have a hemoglobin downtrend from last admission he was 10.2 currently 7.624.9. Patient denies any black stools or blood in his stools no vomiting. Platelet count was 138 creatinine was 5.13 glucose was 73 lactate was elevated at 3.2 BNP was 103 chest x-ray shows cardiomegaly and heart failure calcium was slightly low at 7.0. Was consulted we will admit patient to ICU for further workup and care and provide IV antibiotics for acute sepsis source unknown Past Medical History see hpi above Past Surgical History see hpi above Family History Reviewed, non-contributory to the management of this case. Past Social History The patient lives at home, denies smoking, alcohol or illicit drugs abuse. Review of Systems Constitutional: No: Fever, Chills, Sweats, Weakness, Malaise, Other Eyes: No: Pain, Vision change, Conjunctivae inflammation, Eyelid inflammation, Other, Redness ENT: No: Ear pain, Ear discharge, Nose pain, Nose discharge, Nose congestion, Mouth pain, Mouth swelling, Throat pain, Throat swelling, Other Respiratory: Shortness of breath, SOB with excertion; No: Cough, Dry, Wheezing, Hemoptysis, Pleuritic Pain, Sputum, Wheezing, Other Cardiovascular: No: Chest Pain, Palpitations, Orthopnea, Paroxysmal Noc. Dyspnea, Edema, Lt Headedness, Other Gastrointestinal: No: Nausea, Vomiting, Abdominal Pain, Diarrhea, Constipation, Melena, Hematochezia, Other Genitourinary: No Dysuria, No Frequency, No Incontinence, No Hematuria, No Retention, No Other Musculoskeletal: No: other, neck pain, shoulder pain, arm pain, back pain, hand pain, leg pain, foot pain Skin: No: Rash, Lesions, Jaundice, Bruising, Other Neurological: No: Weakness, Numbness, Incoordination, Change in speech, Confusion, Seizures, Other Allergies: Coded Allergies: NO KNOWN ALLERGIES (Unverified , 08/06/24) Medications Current Medications Medications Dose Ordered Sig/Cameron Route Start Time Stop Time Status Last Admin Dose Admin Norepinephrine Bitartrate 250 ml @ 3.75 mls/hr Q24H IV 09/13/24 10:30 09/13/24 11:06 3.75 MLS/HR Exam Vital Signs Vital Signs Date Time Temp Pulse Resp B/P (MAP) Pulse Ox O2 Delivery O2 Flow Rate FiO2 09/13/24 11:45 32 97 Nasal Cannula* 4 36 09/13/24 11:06 90/24 09/13/24 10:00 98.8 105 98.8 General Appearance: Alert, Oriented X3, Cooperative, moderate distress, Other (On BiPAP) HEENT: Atraumatic, PERRLA, EOMI, Mucous membr. moist/pink Respiratory: Other (Coarse rales heard throughout) Cardiovascular: Regular rate, Normal S1, Normal S2, No murmurs Abdominal: Normal bowel sounds, Soft, No tenderness, No hepatospenomegaly, No masses Extremities: No clubbing, No cyanosis, No edema, Normal pulses, No tenderness/swelling Skin: No rashes, No breakdown, No significant lesion Neuro: Other (Neuro appears nonfocal limited exam due to patient's current sta tus) Psych/Mental Status: Mental status NL Labs/Xrays Chest x-ray shows CHF and cardiomegaly I reviewed labs, imaging CT scan abdomen pelvis, EKG and all diagnostic studies on this patient from ED records and the medical chart Labs Test 09/13/24 11:13 Range/Units White Blood Count 24.2 H 4.4-10.8 10^3/uL Red Blood Count 2.63 L 4.5-5.90 10^6/uL Hemoglobin 7.6 L 13.5-17.5 g/dL Hematocrit 24.4 L 41.0-53.0 % Mean Corpuscular Volume 92.8 80.0-100.0 fL Mean Corpuscular Hemoglobin 29.0 28.0-32.0 pg Mean Corpuscular Hemoglobin Concent 31.2 L 32.0-36.0 g/dL Red Cell Distribution Width 19.8 H 11.8-14.3 % Platelet Count 138 L 140-450 10^3/uL Mean Platelet Volume 8.2 6.9-10.8 fL Neutrophils (%) (Auto) 37.0-80.0 % Lymphocytes (%) (Auto) 10.0-50.0 % Monocytes (%) (Auto) 0.0-12.0 % Basophils (%) (Auto) 0.0-2.0 % Neutrophils # (Auto) 1.6-8.6 10 ^3/uL Lymphocytes # (Auto) 0.4-5.4 10 ^3/uL Monocytes # (Auto) 0-1.3 10 ^3/uL Differential Total Cells Counted 100.0 100 Neutrophils % (Manual) 87 H 37.0-80.0 Band Neutrophils % (Manual) 0 Lymphocytes % (Manual) 9 L 10.0-50.0 Monocytes % (Manual) 4 0-12 Eosinophils % (Manual) 0 0-7 Basophils % (Manual) 0 0.0-2.0 Metamyelocytes % (manual) 0 Myelocytes % (Manual) 0 Promyelocytes % (Manual) 0 Blast Cells % (Manual) 0 Reactive Lymphocytes 0 Smudge Cells 3 /100 WBC Platelet Estimate Decreased Sodium Level 137 136-145 mmol/L Potassium Level 3.7 3.5-5.1 mmol/L Chloride Level 99 98-107 mmol/L Carbon Dioxide Level 28 20-31 mmol/L Anion Gap 10 5-15 Blood Urea Nitrogen 30 H 9-23 mg/dL Creatinine 5.13 H 0.700-1.30 mg/dL Glomerular Filtration Rate Calc 12 >90 mL/min BUN/Creatinine Ratio 5.8 L 10.0-20.0 Serum Glucose 73 L 74-106 mg/dL Lactic Acid Level 3.2 *H 0.4-2.0 mmol/L Calcium Level 7.0 L 8.7-10.4 mg/dL Troponin I High Sensitivity 6 </=54 ng/L B-Type Natriuretic Peptide 103.23 0-100 pg/mL Assessment/Plan Assessment/Plan acute hypoxic resp failure likely from heart failure found on cxr will consult nephrology for additional HD cont bipap to keep sats >92% pt does not make urine no lasix acute sepsis source unknown (last admission pt had Bacteremia with blood culture growing Gram-positive cocci - negative surveillance blood cultures from 08/08/2024 no fever cxr no pna monitor o2 to keep sats >92% ordered blood culture fu results ordered vanco and zosyn for now can provide albumin prn can consider blood cultures through permacath acute chf exacerbation pt does not make urine esrd on HD mwf dr rosales group ot be consulted will likely need another session of HD acute hypotension ordered levophed pt had triple line placed acute anemia likely chronic disease pt hemoglobin downtrended form last admiss ion will need to transfuse 1 unit prbc's occult blood in stool chronic problems hx of Sepsis secondary to community-acquired pneumonia Community-acquired pneumonia, Staphylococcus hemolyticus (methicillin-resistant) Bacteremia with blood culture growing Gram-positive cocci - negative surveillance blood cultures from 08/08/2024 ESRD secondary to autosomal dominant polycystic kidney disease on hemodialysis Saturday, Saturday and Saturday - under apixaban Coagulopathy due to above - Hematuria Questionable vascular dementia Chronic pain secondary to left clavicular fracture and left 4th and seven rib fracture after mechanical fall in patient with ESRD Hypertension hold bp medication since hypotensive Dyslipidemia portacath fen/ppx npo for now hl protonix scd hold eliquis for now plan admit to icu Plan discussed with: Patient, Other (from ED records) Date of Service: Sep 13, 2024 Billing Provider: LUIS DALLAS DNP Common Visit Codes: [id number] INP/OBS CARE (HIGH), [id number] CARE 30- 74 MIN (Total critical care time: Approximately 45 minutes This critical care time included obtaining a history; examining the patient; pulse oximetry; ordering and review of studies; arranging urgent treatment with development of a management plan; evaluation of patient's response to treatment; frequent reassessment; and, discussions with other providers.) LUIS DALLAS DNP Sep 13, 2024 12:29
[2024-09-13 13:24] LABS: Base Excess 1.7 mmol/L (-2.0-3.0)
--- NOTE | 2024-09-13 13:34 | DVHINCON2 ---
Date of service: Sep 13, 2024 Referring Physician Asa CARRANZA Reason for Consultation Dialysis & ESRD History of Present Illness 59-year-old male past medical history of end-stage renal disease on hemodialysis, hypertension, congestive heart failure, anemia presents to the hospital complaining of shortness of breath and weakness. In the ER patient noted to be hypotensive with x-ray showing significant pulmonary vascular congestion. Patient currently on BiPAP. Nephrology consulted for urgent dialysis treatment Past Surgical History AVF Allergies: Coded Allergies: NO KNOWN ALLERGIES (Unverified , 08/06/24) Home Meds Active Scripts Apixaban Base (ELIQUIS) 2.5 Mg Tab, 2.5 MG PO BID for 30 Days, #60 TAB Prov:LANA HOPKINS 08/15/24 Hydrocodone-Acetaminophen (Hydrocodone Bitartrate/AC 5-325 mg) 1 Tab Tab, 1 TAB PO BID PRN, #4 TAB Prov:JENNIFER LEIVA MD 07/18/24 Atorvastatin Calcium (Lipitor) 40 Mg Tab, 1 TAB PO QPM, #90 TAB 1 Refill Prov:CASS SHEA MD 03/09/23 Reported Medications Sevelamer Carbonate (Sevelamer Carbonate) 800 Mg Tab, 3 TAB PO TIDWM for 30 Days, #270 07/08/24 Omeprazole (Omeprazole Dr) 20 Mg Cap, 1 CAP PO DAILY for 30 Days, #30 07/08/24 Ferric Citrate (Auryxia) 210 Mg Tab, 2 TAB PO TIDWM, TAB 05/28/24 Cinacalcet Hydrochloride (Sensipar) 30 Mg Tab, 2 TAB PO DAILY, TAB 05/15/23 Current Medications Current Medications Medications (Trade) Dose Ordered Sig/Cameron Route PRN Reason Start Time Stop Time Status Last Admin Norepinephrine Bitartrate 250 ml @ 3.75 mls/hr Q24H IV 09/13/24 10:30 09/13/24 13:20 DC 09/13/24 11:06 Norepinephrine Bitartrate 250 ml @ 3.75 mls/hr Q24H IV 09/13/24 13:15 Vancomycin HCl 0 ml @ 0 mls/hr UD IV 09/13/24 14:00 Heparin Sodium (Porcine) 5,000 units Q8H SC 09/13/24 14:00 Ondansetron HCl (Zofran) 4 mg Q4HP PRN IV NAUSEA / VOMITING 09/13/24 14:00 Nitroglycerin (Ntrostat Sublingual) 0.4 mg Q5MINP PRN SL FOR CHEST PAIN 09/13/24 14:00 Family History: Colon cancer Diabetes mellitus G8 FATHER, Onset:Unknown FH: cancer G8 MOTHER G8 FATHER Hypertension G8 MOTHER Review of Systems Shortness of breath and respiratory distress H&P Exam Vital Signs/I&O Vital Sign Date Time Temp Pulse Resp B/P (MAP) Pulse Ox O2 Delivery O2 Flow Rate FiO2 09/13/24 15:30 112/56 09/13/24 14:30 94 21 96 09/13/24 14:08 Facial BiPAP Mask 35 09/13/24 14:02 98.8 98.8 09/13/24 11:45 4 Physical Exam middle age male apear in distress breathing on bipap + JVD Tunnel HD catheter + rales abd soft Labs/Diagnostic Data Labs/Diagnostic Data Laboratory Tests Test 09/13/24 15:11 09/13/24 13:20 09/13/24 13:11 09/13/24 11:13 Range/Units Blood Gas Specimen Type Arterial Blood Gas Sample Site Right radial Blood Gas Patient Temperature 37.0 Arterial Blood Date Drawn [id number] Arterial Blood pH 7.460 H 7.350-7.450 Arterial Blood Partial Pressure CO2 36.7 35.0-48.0 mmHg Arterial Blood Partial Pressure O2 66.2 L 83.0-108.0 mmHg Arterial Blood HCO3 25.5 21.0-28.0 mmol/L Arterial Blood Oxygen Saturation 93.0 L 94.0-98.0 % Arterial Blood Base Excess 1.7 -2.0-3.0 mmol/L Arterial Blood Oxyhemoglobin 91.8 L 94.0-98.0 % Arterial Blood Carboxyhemoglobin 1.0 0.5-1.5 % Arterial Blood Methemoglobin 0.3 0.0-1.5 % Gallo Test Yes Blood Gas Total Hemoglobin 9.40 L 13.5-17.5 g/dL Blood Gas Set Respiration Rate 12.0 Blood Gas Modality Mask - bipap FiO2 % 35.0 Blood Gas EPAP 5 Blood Gas IPAP 12 Lactic Acid Level 2.3 *H 3.2 *H 0.4-2.0 mmol/L White Blood Count 24.2 H 4.4-10.8 10^3/uL Red Blood Count 2.63 L 4.5-5.90 10^6/uL Hemoglobin 7.6 L 13.5-17.5 g/dL Hematocrit 24.4 L 41.0-53.0 % Mean Corpuscular Volume 92.8 80.0-100.0 fL Mean Corpuscular Hemoglobin 29.0 28.0-32.0 pg Mean Corpuscular Hemoglobin Concent 31.2 L 32.0-36.0 g/dL Red Cell Distribution Width 19.8 H 11.8-14.3 % Platelet Count 138 L 140-450 10^3/uL Mean Platelet Volume 8.2 6.9-10.8 fL Neutrophils (%) (Auto) 37.0-80.0 % Lymphocytes (%) (Auto) 10.0-50.0 % Monocytes (%) (Auto) 0.0-12.0 % Basophils (%) (Auto) 0.0-2.0 % Neutrophils # (Auto) 1.6-8.6 10 ^3/uL Lymphocytes # (Auto) 0.4-5.4 10 ^3/uL Monocytes # (Auto) 0-1.3 10 ^3/uL Differential Total Cells Counted 100.0 100 Neutrophils % (Manual) 87 H 37.0-80.0 Band Neutrophils % (Manual) 0 Lymphocytes % (Manual) 9 L 10.0-50.0 Monocytes % (Manual) 4 0-12 Eosinophils % (Manual) 0 0-7 Basophils % (Manual) 0 0.0-2.0 Metamyelocytes % (manual) 0 Myelocytes % (Manual) 0 Promyelocytes % (Manual) 0 Blast Cells % (Manual) 0 Reactive Lymphocytes 0 Smudge Cells 3 /100 WBC Platelet Estimate Decreased Sodium Level 137 136-145 mmol/L Potassium Level 3.7 3.5-5.1 mmol/L Chloride Level 99 98-107 mmol/L Carbon Dioxide Level 28 20-31 mmol/L Anion Gap 10 5-15 Blood Urea Nitrogen 30 H 9-23 mg/dL Creatinine 5.13 H 0.700-1.30 mg/dL Glomerular Filtration Rate Calc 12 >90 mL/min BUN/Creatinine Ratio 5.8 L 10.0-20.0 Serum Glucose 73 L 74-106 mg/dL Calcium Level 7.0 L 8.7-10.4 mg/dL Magnesium Level 2.0 1.6-2.6 mg/dL Troponin I High Sensitivity 6 </=54 ng/L B-Type Natriuretic Peptide 103.23 0-100 pg/mL Assessment End-stage renal disease on hemodialysis Admitted for acute respiratory distress in the setting of hypervolemia Hypotension concerning for cardiogenic shock and decompensated heart failure History of diastolic heart failure Anemia due to chronic kidney disease Urgent hemodialysis treatment for ultrafiltration Levophed for blood pressure support and albumin Epogen to improve anemia PRBC 1 unit Renal diet Rest of care and medical treatment cates pending further results after stable dialysis treatment. Plan discussed with: Patient LUDIVINA TABARES MD Sep 13, 2024 13:34
[2024-09-13] MEDS ORDERED: VANCOMYCIN PER PHARMACY 0 MG IV SCH (14:00)
[2024-09-13] MEDS ORDERED: NITROGLYCERIN 0.4 MG SL TAB SL PRN (14:00)
[2024-09-13] MEDS ORDERED: ONDANSETRON HCL 4 MG/2 ML VIAL IV PRN (14:00)
[2024-09-13] MEDS: EPOETIN ALFA-EPBX 10,000 UNIT/1ML VIAL SC ONE (17:35)
[2024-09-13] MEDS: SODIUM CHL 0.9% 1000 ML BAG XX ONE (17:45)
[2024-09-13] MEDS: ALBUMIN 25% 100 ML IV ONE (17:58)
[2024-09-13] MEDS: HEPARIN SODIUM (PORCINE) 5000 UNITS/ML 1ML VIAL SC SCH (17:59)
[2024-09-13] MEDS: VANCOMYCIN 1GM/200ML PM 250 ML IV ONE (18:39)
[2024-09-13] MEDS: NOREPINEPHRINE BITARTRATE 16 MG in SODIUM CHL 0.9% 234 ML IV SCH (20:19)
[2024-09-13] MEDS: HYDROcodone-ACET 7.5/325MG TAB PO PRN (22:02)
[2024-09-13] MEDS: cefTRIAXone 1GM/50ML D5W 50 ML IV ONE (22:03)
[2024-09-14] VITALS (97 sets, daily range): BP systolic 81–111; BP diastolic 45–69; PULSE 81–97; RESP 17–38; TEMP 97.7–98.9; O2SAT 94–100
[2024-09-14 05:05] LABS: Basophils # (auto) 0.1 10 ^3/uL (0-0.2); Basophils % (auto) 0.7 % (0.0-2.0); Eosinophils # (auto) 0.4 10 ^3/uL (0-0.8); Eosinophils % (auto) 1.8 % (0.0-7.0); Hematocrit 29.2 % (41.0-53.0); Hemoglobin 9.1 g/dL (13.5-17.5); Lymphocytes # (auto) 1.4 10 ^3/uL (0.4-5.4); Lymphocytes % (auto) 6.6 % (10.0-50.0); Mean Corpuscular Hemoglobin 28.5 pg (28.0-32.0); Mean Corpuscular Hgb Conc. 31.2 g/dL (32.0-36.0); Mean Corpuscular Volume 91.2 fL (80.0-100.0); Monocytes # (auto) 1.5 10 ^3/uL (0-1.3); Monocytes % (auto) 7.1 % (0.0-12.0); Neutrophils # (auto) 17.3 10 ^3/uL (1.6-8.6); Neutrophils % (auto) 83.8 % (37.0-80.0); Nucleated Red Blood Cells % 0.1 %; Platelet Count (auto) 92 10^3/uL (140-450); Red Cell Distribution Width 19.2 % (11.8-14.3); White Blood Cell 20.7 10^3/uL (4.4-10.8)
[2024-09-14] MEDS: cefTRIAXone 1GM/50ML D5W 50 ML IV SCH (09:21)
[2024-09-14] MEDS: AZITHROMYCIN 500MG/ 250ML 250 ML IV SCH (10:01)
[2024-09-14 10:03] LABS: Hepatitis B Surface Antigen Negative (Negative)
[2024-09-14 10:23] LABS: Hepatitis A Ab IgM Negative
[2024-09-14 10:30] LABS: Hepatitis B Core IgM Negative (Negative)
[2024-09-14 10:31] LABS: Hepatitis C Antibody Reactive (Negative)
[2024-09-14 12:33] LABS: COVID19 ANTIGEN SOFIA FIA NEGATIVE (NEGATIVE); Rapid Influenza A Negative (Negative); Rapid Influenza B Negative (Negative)
--- NOTE | 2024-09-14 13:01 | DVH ---
Exam: CT CT AB PEL WO CON-NO ORAL OR IV History: abdominal pain, distention Comparison Study: None available at time of dictation. TECHNIQUE: Multidetector CT of the abdomen was performed from lung bases to pubic symphysis. Imaging was performed without IV contrast. Axial, coronal and sagittal multiplanar reformats were obtained fr om the axial data set by the technologist. Radiation Dose Information: CT Dose: CTDI volume is 19.55 mGy. Dose-length product is 1144.54 mGy*cm FINDINGS: Evaluation of solid organs is limited due to lack of intravenous contrast use. Findings: Lung Bases: Small bilateral pleural effusions. Liver: The liver is normal in size. No focal lesions. Gallbladder and Biliary Tree: Unremarkable Spleen: Unremarkable Pancreas: The pancreas is grossly normal in appearance. Adrenal Glands: Unremarkable Kidneys: Innumerable bilateral calcified cystic masses seen throughout the kidneys. These are too inn umerable for characterization. Bladder: Grossly unremarkable for degree of distention. Bowel: The stomach is grossly normal in appearance. Small bowel and colon are normal in caliber and d istribution. The appendix is not visualized; however, no secondary findings of acute appendicitis id entified. Ascites: Small volume ascites. Lymphadenopathy: No mesenteric, retroperitoneal or periportal lymphadenopathy. Abdominal Wall and Mesentery: Unremarkable. Vasculature: The visualized abdominal aorta is normal in size and caliber. Evaluation of abdominal a nd pelvic vessels is limited due to lack of intravenous contrast. Pelvic Organs: Unremarkable Musculoskeletal: No aggressive focal bony lesions, acute fractures or dislocation. Soft tissues: Unremarkable IMPRESSION: Innumerable bilateral calcified cystic masses seen throughout the kidneys. These are too innumerable for characterization. Consider lasix renal scan to evaluate for kidney function. Small volume ascites. Small bilateral pleural effusions. Radiation optimization: All CT scans at this facility use at least one of these dose optimization lyn hniques: automated exposure control mA and/or kV adjustment per patient size (includes targeted exam s where dose is matched to clinical indication) or iterative reconstruction.
[2024-09-14] MEDS: MIDODRINE HCL 10 MG TAB PO ONE (13:04)
--- NOTE | 2024-09-14 13:22 | DVHPNRES ---
Progress Note Date Seen: Sep 14, 2024 Resident Creating Document: CONNOR ALBERTS RESIDENT Has the PT tested + for MRSA If YES, has PT been informed?: No Medical Necessity Reason Pt with a Central, PICC or Fol: Yes Subjective Review of Systems This is a 59-year-old male with a past medical history of cerebrovascular accident, end-stage renal disease on hemodialysis (Saturday, Saturday, Saturday), hyperlipidemia, and hypertension, who presented with shortness of breath since the prior day. The patient was at home with his daughter and was on 2 L nasal cannula, which he increased to 4 L due to worsening dyspnea. Due to severe respiratory distress, he required BiPAP upon arrival to the emergency department. On evaluation, the patient was found to be hypotensive and was started on norepinephrine drip (Levo). He also had elevated lactate levels (3.2) concerning for sepsis. Hemoglobin had trended down from 10.2 to 7.6 since his last admission, and he was noted to have ESRD secondary to autosomal dominant polycystic kidney disease. Chest X-ray revealed cardiomegaly and signs of heart failure. Creatinine was elevated at 5.13 with a GFR of 10.2. No fever, chills, or signs of infection reported at the time. The patient denied GI bleeding and had no black or bloody stools, nausea, or vomiting. The patient previously had a bloodstream infection with gram-positive cocci (Staphylococcus hemolyticus) in July 2024 and had since been monitored with negative surveillance cultures. CT of the abdomen revealed innumerable bilateral calcified cystic kidney masses, consistent with polycystic kidney disease. Patient is ICU status for sepsis workup and hemodynamic support. Blood cultures and ceftriaxone + azithromycin were initiated. A triple lumen central line was placed for vasopressor administration. He is also anemic, likely secondary to chronic disease, and received one unit of PRBCs. HD done yesterday Objective vital signs Vital Sign Date Time Temp Pulse Resp B/P (MAP) Pulse Ox O2 Delivery O2 Flow Rate FiO2 09/14/24 10:45 87 22 93/47 (62) 97 09/14/24 10:00 Nasal Cannula* 4 36 09/14/24 08:00 98.8 98.8 Total Intake and Output 09/13/24 09/13/24 09/14/24 14:59 22:59 06:59 Intake Total 291.25 ml 915.4 ml 71.125 ml Output Total 0 ml Balance 291.25 ml 915.4 ml 71.125 ml medications Current Medications Medications Dose Ordered Sig/Cameron Route Start Time Stop Time Status Last Admin Dose Admin Vancomycin HCl 0 ml @ 0 mls/hr UD IV 09/13/24 14:00 Heparin Sodium (Porcine) 5,000 units Q8H SC 09/13/24 14:00 Ondansetron HCl 4 mg Q4HP PRN IV 09/13/24 14:00 Nitroglycerin 0.4 mg Q5MINP PRN SL 09/13/24 14:00 Norepinephrine Bitartrate 16 mg/ Sodium Chloride 250 ml @ 1.875 mls/ hr Q24H IV 09/13/24 18:00 09/13/24 20:19 18.75 MLS/HR Acetaminophen/ Hydrocodone Bitart 1 tab Q6HP PRN PO 09/13/24 22:00 09/13/24 22:02 1 TAB Acetaminophen 650 mg Q6HP PRN PO 09/13/24 22:00 Ceftriaxone Sodium 50 ml @ 100 mls/hr DAILY@09 IV 09/14/24 09:00 09/14/24 09:21 100 MLS/HR Azithromycin 250 ml @ 125 mls/hr DAILY IV 09/14/24 10:00 09/14/24 10:01 125 MLS/HR Examination General: Alert,nasal canula Cardiovascular: regular rhythm, no mrmurs, no gallops Respiratory: Bilateral breath sounds, diminished at bases, no wheezes GI: Soft, tender in lower quadrant, no hepatosplenomegaly Extremities: No edema, PermCath in place Neuro: Alert, no focal deficits Skin: No rash, no signs of bleeding laboratory and microbiology Laboratory Tests 09/14/24 04:54 09/14/24 03:27 09/13/24 11:13 Test 09/13/24 11:13 Range/Units Serum Glucose 73 L 74-106 mg/dL Problem List/Assessment/Plan Problem List/Assessment/Plan Acute hypoxic respiratory failure likely secondary to fluid overload Septic shock, likely from unknown source (prior bacteremia with gram-positive cocci) Possible PNA gram+/gram - ESRD on hemodialysis (MWF), likely volume overloaded Acute on chronic anemia likely secondary to CKD Polycystic kidney disease History of CVA Hyperlipidemia Small bilateral pleural effusions and ascites ICU status Levophed 10 mcg Ceftriaxone + Azitrhyomycin + Vancomycin HD Heparin 5000 ui TID No need of bipap for now Nephrology and Pulmonology on the case Midodrine Pending cultures Case discussed with Dr Araiza Plan discussed with: Patient, Other (rn) My Orders My Orders Orders - CONNOR ALBERTS RESIDENT Procedure Category Date Status Time Azithromycin 500mg/ PHA 09/14/24 In Process 250ml (Zithromax 50 10:00 C-Diff: Collect Next NELLIE 09/14/24 In Process Specimen 09:03 Initiate Vte NELLIE 09/14/24 In Process Prophylaxis 09:03 Ct Ab Pel Wo Con-No CT 09/14/24 Resulted Oral Or Iv 09:41 * Picc Line Consult CONS 09/14/24 Transmitted 09:48 Urinalysis LAB 09/14/24 Logged 11:08 *Consult CONS 09/14/24 Transmitted / 13:05 Comprehensive LAB 09/14/24 Verified Metabolic Panel 13:20 C-Reactive Protein LAB 09/14/24 Verified 13:20 CC Plasma Assessment Blood Product Administration S: 1705 Date of Service: Sep 14, 2024 Billing Provider: CASS ARAIZA MD Common Visit Codes: [id number] INP/OBS CARE(HIGH) CONNOR ALBERTS RESIDENT Sep 14, 2024 13:22 CASS ARAIZA MD Sep 14, 2024 22:09
[2024-09-14] MEDS: VANCOMYCIN 750mg/150ml 150 ML IV ONE (13:52)
[2024-09-14 15:48] LABS: Alkaline Phosphatase 110 U/L (46-116); Anion Gap 7 (5-15); Aspartate Aminotransferase 15 U/L (13-40); BUN/Creatinine Ratio 5.6 (10.0-20.0); Bilirubin, Total 0.8 mg/dL (0.2-1.0); Carbon Dioxide 28 mmol/L (20-31); Chloride 103 mmol/L (98-107); Potassium 3.6 mmol/L (3.5-5.1); Sodium 138 mmol/L (136-145)
[2024-09-14 15:49] LABS: Alanine Aminotransferase < 9 U/L (7-40); Blood Urea Nitrogen 29 mg/dL (9-23); Calcium 6.9 mg/dL (8.7-10.4); Glucose 69 mg/dL (74-106); Total Protein 5.7 g/dL (5.7-8.2)
[2024-09-14 16:23] LABS: CRP High Sensitivity 18.74 mg/dL (<1.0)
--- NOTE | 2024-09-14 19:08 | DVHINCON2 ---
Date of service: Sep 14, 2024 Referring Physician Victorina Pitts MD Reason for Consultation Acute hypoxic respiratory failure, COPD, pleural effusions, pneumonia History of Present Illness A 59-year-old man with past medical history of CVA, end-stage renal disease on HD - (received full dialysis on Saturday), hyperlipidemia, hypertension, and PermCath to right chest wall who presented to ED on 09/13/24 with c/o shortness o f breath since the day prior to presentation. Patient usually on 2 L nasal cannula, had increased to 4 LPM. When he came in, patient was in severe distress and had to be placed on BiPAP. He was started on Levophed drip in ED due to hypotension. Noted elevated lactate due to sepsis, low hemoglobin. No melena or hematochezia. Platelets of 138, creatinine 5.13, glucose was 73, lactate elevated at 3.2. BNP was 103. Chest x-ray showing cardiomegaly and heart failure. Calcium slightly low at 7.0. Patient was thus admitted for further care, and pulmonary consultation is requested for evaluation and management due to the above findings. Review of Systems: 14-point review of systems negative unless otherwise noted above. Past Medical History: CVA, end-stage renal disease on HD -, hyperlipidemia, hypertension Past Surgical History: AVF, PermCath placement. Medications: Reviewed. Allergies: No known drug allergies. Family History: Colon cancer Diabetes mellitus Hypertension. Social History: Nonsmoker. No alcohol or illicit drug use. Family History: Colon cancer Diabetes mellitus G8 FATHER, Onset:Unknown FH: cancer G8 MOTHER G8 FATHER Hypertension G8 MOTHER Allergies: Coded Allergies: NO KNOWN ALLERGIES (Unverified , 08/06/24) Home Meds Active Scripts Apixaban Base (ELIQUIS) 2.5 Mg Tab, 2.5 MG PO BID for 30 Days, #60 TAB Prov:LANA HOPKINS RESIDENT 08/15/24 Reported Medications Aspirin (Aspirin Low Dose) 81 Mg Tab, 1 TAB PO DAILY for 90 Days, #90 09/14/24 Atorvastatin Calcium (ATORVASTATIN CALCIUM) 40 Mg Tab, 1 TAB PO DAILY for 90 Days, #90 09/14/24 Cinacalcet HCl (Cinacalcet Hydrochloride) 90 Mg Tab, 1 TAB PO DAILY for 30 Days, #30 09/14/24 Sevelamer Carbonate (Sevelamer Carbonate) 800 Mg Tab, 3 TAB PO TIDWM for 30 Days, #270 07/08/24 Omeprazole (Omeprazole Dr) 20 Mg Cap, 1 CAP PO DAILY for 30 Days, #30 07/08/24 Ferric Citrate (Auryxia) 210 Mg Tab, 2 TAB PO TIDWM, TAB 05/28/24 Discontinued Reported Medications Cinacalcet Hydrochloride (Sensipar) 30 Mg Tab, 2 TAB PO DAILY, TAB 05/15/23 Current Medications Current Medications Medications (Trade) Dose Ordered Sig/Cameron Route PRN Reason Start Time Stop Time Status Last Admin Acetaminophen/ Hydrocodone Bitart ([place] 7.5/325MG Tab) 1 tab Q6HP PRN PO MODERATE PAIN (4-6 PAIN SCALE) 09/13/24 22:00 09/13/24 22:02 Acetaminophen (Tylenol Tablet) 650 mg Q6HP PRN PO MILD PAIN (1-3 PAIN SCALE) 09/13/24 22:00 Ceftriaxone Sodium 50 ml @ 100 mls/hr DAILY@09 IV 09/14/24 09:00 09/14/24 09:21 Azithromycin 250 ml @ 125 mls/hr DAILY IV 09/14/24 10:00 09/14/24 10:01 Midodrine (Proamatine Tablet) 10 mg TID@0600,1200,1800 PO 09/15/24 06:00 UNV Vital Signs Vital Signs Date Time Temp Pulse Resp B/P (MAP) Pulse Ox O2 Delivery O2 Flow Rate FiO2 09/14/24 18:15 86 22 91/55 (67) 09/14/24 18:00 96 09/14/24 18:00 Nasal Cannula* 3 32 09/14/24 16:00 98.9 98.9 Physical Exam Gen.: Patient lying in bed in no apparent distress. On supplemental oxygen. Head: Normocephalic, atraumatic. Eyes: EOMI/PERRLA. Ears: Normal hearing. Normal anatomy. Neck/trachea: Trachea midline, supple. Nose: Normal external anatomy. Mouth: Moist mucous membranes. Chest: Decreased air entry bilaterally. No wheezing or rhonchi. Cardiovascular: Positive S1, positive S2. Regular rate and rhythm. Abdomen: Positive bowel sounds in all 4 quadrants. Soft, non-tender, non- distended. : Deferred. Rectal: Deferred. Skin: Warm, dry. Intact. Extremities: 2+ radial pulses bilaterally. No lower extremity edema. Neuro: Awake, alert, oriented x3. No gross motor or sensory deficits. Cranial nerves II through XII intact. Gait not assessed. Labs/Diagnostic Data Labs Test 09/14/24 14:45 09/14/24 11:27 09/14/24 04:54 09/14/24 03:27 Range/Units Sodium Level 138 136-145 mmol/L Potassium Level 3.6 3.5-5.1 mmol/L Chloride Level 103 98-107 mmol/L Carbon Dioxide Level 28 20-31 mmol/L Anion Gap 7 5-15 Blood Urea Nitrogen 29 H 9-23 mg/dL Creatinine 5.18 H 0.700-1.30 mg/dL Glomerular Filtration Rate Calc 12 >90 mL/min BUN/Creatinine Ratio 5.6 L 10.0-20.0 Serum Glucose 69 L 74-106 mg/dL Calcium Level 6.9 L 8.7-10.4 mg/dL Total Bilirubin 0.8 0.2-1.0 mg/dL Aspartate Amino Transferase (AST) 15 13-40 U/L Alanine Aminotransferase (ALT) < 9 7-40 U/L Alkaline Phosphatase 110 46-116 U/L C-Reactive Protein High Sensitivity 18.74 H <1.0 mg/dL Total Protein 5.7 5.7-8.2 g/dL Albumin 2.0 L 3.2-4.8 g/dL Influenza Type A Antigen Negative Negative Influenza Type B Antigen Negative Negative SARS-CoV-2 Antigen (Rapid) Negative NEGATIVE White Blood Count 20.7 H 4.4-10.8 10^3/uL Red Blood Count 3.20 L 4.5-5.90 10^6/uL Hemoglobin 9.1 #L 13.5-17.5 g/dL Hematocrit 29.2 #L 41.0-53.0 % Mean Corpuscular Volume 91.2 80.0-100.0 fL Mean Corpuscular Hemoglobin 28.5 28.0-32.0 pg Mean Corpuscular Hemoglobin Concent 31.2 L 32.0-36.0 g/dL Red Cell Distribution Width 19.2 H 11.8-14.3 % Platelet Count 92 L 140-450 10^3/uL Mean Platelet Volume 7.9 6.9-10.8 fL Neutrophils (%) (Auto) 83.8 H 37.0-80.0 % Lymphocytes (%) (Auto) 6.6 L 10.0-50.0 % Monocytes (%) (Auto) 7.1 0.0-12.0 % Eosinophils (%) (Auto) 1.8 0.0-7.0 % Basophils (%) (Auto) 0.7 0.0-2.0 % Neutrophils # (Auto) 17.3 H 1.6-8.6 10 ^3/uL Lymphocytes # (Auto) 1.4 0.4-5.4 10 ^3/uL Monocytes # (Auto) 1.5 H 0-1.3 10 ^3/uL Eosinophils # (Auto) 0.4 0-0.8 10 ^3/uL Basophils # (Auto) 0.1 0-0.2 10 ^3/uL Nucleated Red Blood Cells 0.1 % Random Vancomycin Level 14.9 H 5-10 ug/mL Test 09/13/24 15:11 09/13/24 13:20 09/13/24 13:11 09/13/24 11:13 Range/Units Lactic Acid Level 1.7 0.4-2.0 mmol/L Blood Gas Specimen Type Arterial Blood Gas Sample Site Right radial Blood Gas Patient Temperature 37.0 Arterial Blood Date Drawn [id number] Arterial Blood pH 7.460 H 7.350-7.450 Arterial Blood Partial Pressure CO2 36.7 35.0-48.0 mmHg Arterial Blood Partial Pressure O2 66.2 L 83.0-108.0 mmHg Arterial Blood HCO3 25.5 21.0-28.0 mmol/L Arterial Blood Oxygen Saturation 93.0 L 94.0-98.0 % Arterial Blood Base Excess 1.7 -2.0-3.0 mmol/L Arterial Blood Oxyhemoglobin 91.8 L 94.0-98.0 % Arterial Blood Carboxyhemoglobin 1.0 0.5-1.5 % Arterial Blood Methemoglobin 0.3 0.0-1.5 % Gallo Test Yes Blood Gas Total Hemoglobin 9.40 L 13.5-17.5 g/dL Blood Gas Set Respiration Rate 12.0 Blood Gas Modality Mask - bipap FiO2 % 35.0 Blood Gas EPAP 5 Blood Gas IPAP 12 Hepatitis A IgM Antibody Negative Hepatitis B Surface Antigen Negative Negative Hepatitis B Core IgM Antibody Negative Negative Hepatitis C Antibody Reactive *A Negative Differential Total Cells Counted 100.0 100 Neutrophils % (Manual) 87 H 37.0-80.0 Band Neutrophils % (Manual) 0 Lymphocytes % (Manual) 9 L 10.0-50.0 Monocytes % (Manual) 4 0-12 Eosinophils % (Manual) 0 0-7 Basophils % (Manual) 0 0.0-2.0 Metamyelocytes % (manual) 0 Myelocytes % (Manual) 0 Promyelocytes % (Manual) 0 Blast Cells % (Manual) 0 Reactive Lymphocytes 0 Smudge Cells 3 /100 WBC Platelet Estimate Decreased Magnesium Level 2.0 1.6-2.6 mg/dL Troponin I High Sensitivity 6 </=54 ng/L B-Type Natriuretic Peptide 103.23 0-100 pg/mL Microbiology Date/Time Source Procedure Growth Status 09/13/24 14:12 Blood Blood Culture - Preliminary NO GROWTH AFTER 24 HOURS OF INCUBATION. Resulted Assessment Impression: Acute hypoxic respiratory failure Dependence on supplemental oxygen Chronic obstructive pulmonary disease, stable Anemia Leukocytosis Thrombocytopenia Lactic acidosis End-stage renal disease, on hemodialysis Congestive heart failure Shock, septic Pneumonia, likely gram negative Ascites Small bilateral pleural effusions Hepatitis C Plan: Supplemental oxygen 4 LPM NC Titrate to keep O2 sats above 92%. Taper O2 as tolerated. On pressors for hemodynamic support Levophed 8 mcg/min Titrate to keep mean arterial pressure greater than [address] abdomen and pelvis demonstrates innumerable bilateral calcified cystic masses seen throughout the kidneys. Small volume ascites. Small bilateral pleural effusions. Place PICC line. Check stool for C. diff. Wound care Monitor hemoglobin Transfuse if less than 7.0 g/dL Continue antibiotics Follow up cultures Incentive spirometry Monitor WBC Monitor platelets Monitor lactic acid Maintain euvolemia Monitor renal function. Monitor electrolytes. Supplement as necessary. Monitor ins and outs. HD per Nephrology Avoid volume overload GI/DVT prophylaxis. Prognosis: Poor given patient's multiple co-morbidities. Condition: Critical Rest of plan per hospitalist and other consultants. A total of 35 minutes of critical care time was spent reviewing the patient record, examining the patient, making a diagnostic and therapeutic plan, discussing this plan with the medical personnel, following up on diagnostic studies and following the patient for clinical stability excluding any and all procedures. At least 50% of this time was spent in direct, [id number] contact. Thank you, Dr. Pitts, for allowing me to participate in this patient's care. Further recommendations will depend on the patient's clinical course. Please do not hesitate to contact me if you have any questions or concerns. This medical document was created using an electronic medical record system with [employer] dictation system. Although these documentations are being carefully reviewed, there may still be some phonetic and typographical changes. The errors are purely typographical, due to imperfection on the software program, and do not reflect any compromise in the patient's medical care. Plan discussed with: Patient, Other (SUSANNAH Bautista/Dr Pitts) TONG BLUNT MD Sep 14, 2024 19:08
[2024-09-15] VITALS (111 sets, daily range): BP systolic 87–116; BP diastolic 52–73; PULSE 76–93; RESP 12–89; TEMP 96.5–98; O2SAT 77–100
[2024-09-15 03:55] LABS: Hematocrit 29.3 % (41.0-53.0); Hemoglobin 9.4 g/dL (13.5-17.5); Mean Corpuscular Hemoglobin 29.5 pg (28.0-32.0); Mean Corpuscular Volume 92.3 fL (80.0-100.0); Platelet Count (auto) 106 10^3/uL (140-450); Red Blood Cells 3.18 10^6/uL (4.5-5.90); Red Cell Distribution Width 19.7 % (11.8-14.3); White Blood Cell 28.2 10^3/uL (4.4-10.8)
[2024-09-15 04:06] LABS: Basophils % (manual) 0 (0.0-2.0); Blast Cells 0; Myelocytes % 0; Promyelocytes % 0; Reactive Lymphocytes 0
[2024-09-15 04:13] LABS: Alkaline Phosphatase 107 U/L (46-116); Anion Gap 8 (5-15); BUN/Creatinine Ratio 5.3 (10.0-20.0); Carbon Dioxide 26 mmol/L (20-31); Chloride 103 mmol/L (98-107); Glucose 75 mg/dL (74-106); Potassium 3.7 mmol/L (3.5-5.1); Sodium 137 mmol/L (136-145); Total Protein 6.2 g/dL (5.7-8.2)
[2024-09-15 04:14] LABS: Alanine Aminotransferase < 9 U/L (7-40); Albumin 2.2 g/dL (3.2-4.8); Aspartate Aminotransferase 17 U/L (13-40); Bilirubin, Total 0.7 mg/dL (0.2-1.0); Blood Urea Nitrogen 30 mg/dL (9-23); Calcium 7.4 mg/dL (8.7-10.4)
[2024-09-15 05:06] LABS: Band Neutrophils % (manual) 1; Lymphocytes % (manual) 8 (10.0-50.0)
[2024-09-15 05:07] LABS: Eosinophils % (manual) 1 (0-7); Large Platelets FEW; Metamyelocytes % 1; Monocytes % (manual) 1 (0-12); Platelet Estimate Decreased
--- NOTE | 2024-09-15 05:13 | DVH ---
EXAM: XR Chest, 1 View CLINICAL INDICATION: PROTOCOL TECHNIQUE: Frontal view of the chest. COMPARISON: XY CHEST PORTABLE on DOS: 09/13/24, XY CHEST PORTABLE on DOS: 08/11/24, XY CHEST PORTABLE on DOS: 08/08/24, XY CHEST PORTABLE on DOS: 08/05/24, XY CHEST PORTABLE on DOS: 07/31/23 FINDINGS: LUNGS AND PLEURAL SPACES: Pulmonary congestion and edema. Pneumonia cannot be excluded. No pneumot horax. HEART: Unremarkable. No cardiomegaly. MEDIASTINUM: Unremarkable. Normal mediastinal contour. BONES/JOINTS: Unremarkable. No acute fracture. TUBES, LINES AND DEVICES: Right internal jugular central venous catheter tip in the superior vena c anabelle. OTHER FINDINGS: . .. IMPRESSION: Pulmonary congestion and edema. Pneumonia cannot be excluded.
[2024-09-15] MEDS: MIDODRINE HCL 10 MG TAB PO SCH (05:37)
--- NOTE | 2024-09-15 07:14 | ECG ---
[facility] Test Date: 2024-09-13 Test Time: 09:56:57 Pat Name: ARVIND MANCILLA Department: ED Room: [address] [place] [address] A Gender: M Divider Operator: JENNY : 1965 Requested By: MONIQUE DASH Order Number: [id number] Reading MD: Juan J Bower Measurements Intervals [place] Rate: 107 P: 12 TN: 121 QRS: -11 QRSD: 109 T: 57 QT: 380 QTc: 507 Interpretive Statements Sinus tachycardia Inferior infarct, old Consider anterior infarct Lateral leads are also involved Prolonged QT interval Electronically Signed On 09-16-2024 22:02:00 PDT by Juan J Bower Please click the below link to view image of tracing.
[2024-09-15] MEDS ORDERED: MEROPENEM 500MG IVPB 50 ML IV ONE (07:45)
[2024-09-15] MEDS: MEROPENEM 500MG IVPB 50 ML IV ONE (08:15)
[2024-09-15 09:34] LABS: Phosphorus 3.2 mg/dL (2.4-5.1)
[2024-09-15] MEDS: methylPREDNISolone SOD SUCC 40 MG/ML VL IV ONE (10:16)
[2024-09-15] MEDS: ALBUTEROL SULF 2.5 MG/0.5ML(0.5%) NEB SOLN NEB ONE (10:30)
[2024-09-15] MEDS: IPRATROPIUM BROM 0.5 MG/2.5ML INH SOL NEB ONE (10:30)
--- NOTE | 2024-09-15 11:32 | DVHPNRES ---
Progress Note Date Seen: Sep 15, 2024 Resident Creating Document: CONNOR ALBERTS RESIDENT Has the PT tested + for MRSA If YES, has PT been informed?: No Medical Necessity Reason Pt with a Central, PICC or Fol: Yes Subjective Review of Systems This is a 59-year-old male with a past medical history of cerebrovascular accident, end-stage renal disease on hemodialysis (Saturday, Saturday, Saturday), hyperlipidemia, and hypertension, who presented with shortness of breath since the prior day. The patient was at home with his daughter and was on 2 L nasal cannula, which he increased to 4 L due to worsening dyspnea. Due to severe respiratory distress, he required BiPAP upon arrival to the emergency department. On evaluation, the patient was found to be hypotensive and was started on norepinephrine drip (Levo). He also had elevated lactate levels (3.2) concerning for sepsis. Hemoglobin had trended down from 10.2 to 7.6 since his last admission, and he was noted to have ESRD secondary to autosomal dominant polycystic kidney disease. Chest X-ray revealed cardiomegaly and signs of heart failure. Creatinine was elevated at 5.13 with a GFR of 10.2. No fever, chills, or signs of infection reported at the time. The patient denied GI bleeding and had no black or bloody stools, nausea, or vomiting. The patient previously had a bloodstream infection with gram-positive cocci (Staphylococcus hemolyticus) in July 2024 and had since been monitored with negative surveillance cultures. CT of the abdomen revealed innumerable bilateral calcified cystic kidney masses, consistent with polycystic kidney disease. Patient is ICU status for sepsis workup and hemodynamic support. Blood cultures and ceftriaxone + azithromycin were initiated. A triple lumen central line was placed for vasopressor administration. He is also anemic, likely secondary to chronic disease, and received one unit of PRBCs. HD done 09/14/24 09/15/24: wbc is trending high, levophed 10 mcg, patient was wheezing, solumedrol once, breathing treatments PRN, ceftriaxone and AZT was changed to meropenem + doxycycline, HD today, continue vancomycin, patient is also having diarrhea Objective vital signs Vital Sign Date Time Temp Pulse Resp B/P (MAP) Pulse Ox O2 Delivery O2 Flow Rate FiO2 09/15/24 10:38 82 25 100 09/15/24 10:30 Nasal Cannula 2.0 09/15/24 10:30 28 09/15/24 09:15 95/60 (72) 09/15/24 08:00 97.1 97.1 Total Intake and Output 09/14/24 09/14/24 09/15/24 15:00 23:00 07:00 Intake Total 441.875 ml 428.7495 ml 333.750 ml Output Total 0 ml Balance 441.875 ml 428.7495 ml 333.750 ml medications Current Medications Medications Dose Ordered Sig/Cameron Route Start Time Stop Time Status Last Admin Dose Admin Vancomycin HCl 0 ml @ 0 mls/hr UD IV 09/13/24 14:00 Heparin Sodium (Porcine) 5,000 units Q8H SC 09/13/24 14:00 Ondansetron HCl 4 mg Q4HP PRN IV 09/13/24 14:00 Nitroglycerin 0.4 mg Q5MINP PRN SL 09/13/24 14:00 Norepinephrine Bitartrate 16 mg/ Sodium Chloride 250 ml @ 1.875 mls/ hr Q24H IV 09/13/24 18:00 09/14/24 23:53 9.375 MLS/HR Acetaminophen/ Hydrocodone Bitart 1 tab Q6HP PRN PO 09/13/24 22:00 09/13/24 22:02 1 TAB Acetaminophen 650 mg Q6HP PRN PO 09/13/24 22:00 Azithromycin 250 ml @ 125 mls/hr DAILY IV 09/14/24 10:00 09/15/24 11:28 125 MLS/HR Midodrine 5 mg TID@0600,1200,1800 PO 09/15/24 06:00 09/15/24 05:37 5 MG Meropenem 50 ml @ 17 mls/hr Q12HR IV 09/15/24 22:00 Albuterol 2.5 mg Q8HR NEB 09/15/24 14:00 Ipratropium [place] 0.5 mg Q8HR NEB 09/15/24 08:45 Diagnostic Test (Pha) 1 strip Q6HR 09/15/24 12:00 Examination General: Alert,nasal canula Cardiovascular: regular rhythm, no mrmurs, no gallops Respiratory: Bilateral breath sounds, diminished at bases, no wheezes GI: Soft, tender in lower quadrant, no hepatosplenomegaly Extremities: No edema, PermCath in place Neuro: Alert, no focal deficits Skin: No rash, no signs of bleeding laboratory and microbiology Laboratory Tests 09/15/24 03:33 Test 09/15/24 03:33 Range/Units Serum Glucose 75 74-106 mg/dL Microbiology Date/Time Source Procedure Growth Status 09/13/24 14:12 Blood Blood Culture - Preliminary NO GROWTH AFTER 24 HOURS OF INCUBATION. Resulted Problem List/Assessment/Plan Problem List/Assessment/Plan Acute hypoxic respiratory failure likely secondary to fluid overload Septic shock, likely from unknown source (prior bacteremia with gram-positive cocci) Possible PNA gram+/gram - Possible gastroenteritis: diarrhea ESRD on hemodialysis (MWF), likely volume overloaded Acute on chronic anemia likely secondary to CKD Polycystic kidney disease History of CVA Hyperlipidemia Small bilateral pleural effusions and ascites Chronic Hep C infcetion ICU status Levophed 10 mcg Meropenem+ Doxycycline + Vancomycin HD Heparin 5000 ui TID No need of bipap for now Nephrology and Pulmonology on the case Midodrine Pending cultures Breathing treatments Patient doesnt produce urine Case discussed with Dr Cunha Plan discussed with: Patient, Other (rn) My Orders My Orders Orders - CONNOR ALBERTS Procedure Category Date Status Time *Consult CONS 09/14/24 Transmitted / 13:05 Mrsa Screen MARBELLA 09/14/24 In Process 11:27 Cleanse Wound With NELLIE 09/14/24 In Process Mild Soap A 13:23 * Dietary Consult CONS 09/14/24 Transmitted 14:41 Respiratory Culture MARBELLA 09/14/24 Uncollected W/ Gs 18:44 Urine Bacterial MARBELLA 09/14/24 Uncollected Culture 18:44 Midodrine Tablet PHA 09/15/24 In Process (Proamatine Tablet) 06:00 Stool Bacterial MARBELLA 09/14/24 In Process Culture 21:23 Chest Portable XY 09/15/24 Resulted 04:00 Meropenem 500mg Ivpb PHA 09/15/24 In Process (Merrem 500mg/Ns) 22:00 Clostridium Difficile MARBELLA 09/15/24 In Process Toxin 07:48 Albuterol Medneb PHA 09/15/24 In Process (Ventolin Medneb) 14:00 Ipratropium Medneb PHA 09/15/24 In Process (Atrovent Medneb) 08:45 Glucose Blood PHA 09/15/24 In Process (Accu-Chek Comfort 12:00 Dietary Evaluation Review Comments: 1. Nepro PO 19g Pro, 420kcal, BIDWM providing 38 gProtein 840kcal in two servings,if pt can drink both. 2. Consider Fam BID Fruit Punch flavor for promoting wound healing Expected Outcomes/Goals: Improved appetite, healed wounds, gradual wt gain. CC Plasma Assessment Blood Product Administration S: [id number] Date of Service: Sep 15, 2024 Billing Provider: SOFIYA CUNHA DO Common Visit Codes: 21227-[id number] CARE 30-74 MIN CONNOR ALBERTS RESIDENT Sep 15, 2024 11:32 SOFIYA CUNHA DO Sep 16, 2024 20:51
[2024-09-15] MEDS: ACCU-CHEK COMFORT CURVE STRIP VI SCH (12:01)
[2024-09-15] MEDS: ALBUTEROL SULF 2.5 MG/0.5ML(0.5%) NEB SOLN NEB SCH (13:58)
[2024-09-15] MEDS: IPRATROPIUM BROM 0.5 MG/2.5ML INH SOL NEB SCH (13:58)
--- NOTE | 2024-09-15 14:11 | MEDREC ---
[facility] Intervention Section I [facility] Intervention: Review courses of therapy (DUE TO PROLONG QTc > 500 PLEASE CONSIDER SWITCHING AZITHROMYCIN TO DOXYCYCLINE ) LAURITA MATTA PHARMACIST Sep 15, 2024 14:11
--- NOTE | 2024-09-15 20:29 | DVHPN2 ---
Progress Note - Dictate Date Seen: Sep 15, 2024 Has the PT tested + for MRSA If YES, has PT been informed?: No Medical Necessity Reason Pt with a Central, PICC or Fol: Yes Subjective Patient seen and examined at bedside. Remains on supplemental oxygen Overnight events reviewed. vital signs Vital Sign Date Time Temp Pulse Resp B/P (MAP) Pulse Ox O2 Delivery O2 Flow Rate FiO2 09/15/24 19:27 77 18 90/60 77 2.0 09/15/24 18:00 Nasal Cannula* 28 09/15/24 17:00 97.3 97.3 Total Intake and Output 09/14/24 09/14/24 09/15/24 15:00 23:00 07:00 Intake Total 441.875 ml 428.7495 ml 333.750 ml Output Total 0 ml Balance 441.875 ml 428.7495 ml 333.750 ml medications Current Medications Medications Dose Ordered Sig/Cameron Route Start Time Stop Time Status Last Admin Dose Admin Vancomycin HCl 0 ml @ 0 mls/hr UD IV 09/13/24 14:00 Heparin Sodium (Porcine) 5,000 units Q8H SC 09/13/24 14:00 Ondansetron HCl 4 mg Q4HP PRN IV 09/13/24 14:00 Nitroglycerin 0.4 mg Q5MINP PRN SL 09/13/24 14:00 Norepinephrine Bitartrate 16 mg/ Sodium Chloride 250 ml @ 1.875 mls/ hr Q24H IV 09/13/24 18:00 09/14/24 23:53 9.375 MLS/HR Acetaminophen/ Hydrocodone Bitart 1 tab Q6HP PRN PO 09/13/24 22:00 09/13/24 22:02 1 TAB Acetaminophen 650 mg Q6HP PRN PO 09/13/24 22:00 Midodrine 5 mg TID@0600,1200,1800 PO 09/15/24 06:00 09/15/24 18:08 5 MG Meropenem 50 ml @ 17 mls/hr Q12HR IV 09/15/24 22:00 Albuterol 2.5 mg Q8HR NEB 09/15/24 14:00 09/15/24 13:58 2.5 MG Ipratropium [place] 0.5 mg Q8HR NEB 09/15/24 08:45 09/15/24 13:58 0.5 MG Diagnostic Test (Pha) 1 strip Q6HR 09/15/24 12:00 09/15/24 18:08 1 STRIP Doxycycline Hyclate 100 ml @ 50 mls/hr Q12H IV 09/15/24 20:00 UNV objective Gen.: Patient lying in bed in no apparent distress. On supplemental oxygen. Head: Normocephalic, atraumatic. Eyes: EOMI/PERRLA. Ears: Normal hearing. Normal anatomy. Neck/trachea: Trachea midline, supple. Nose: Normal external anatomy. Mouth: Moist mucous membranes. Chest: Decreased air entry bilaterally. No wheezing or rhonchi. Cardiovascular: Positive S1, positive S2. Regular rate and rhythm. Abdomen: Positive bowel sounds in all 4 quadrants. Soft, non-tender, non- distended. : Deferred. Rectal: Deferred. Skin: Warm, dry. Intact. Extremities: 2+ radial pulses bilaterally. No lower extremity edema. Neuro: Awake, alert, oriented x3. No gross motor or sensory deficits. Cranial nerves II through XII intact. Gait not assessed. laboratory and microbiology Laboratory Tests 09/15/24 03:33 Test 09/15/24 03:33 Range/Units Serum Glucose 75 74-106 mg/dL Assessment/Plan Impression: Acute hypoxic respiratory failure Dependence on supplemental oxygen Chronic obstructive pulmonary disease, stable Anemia Leukocytosis Thrombocytopenia Lactic acidosis End-stage renal disease, on hemodialysis Congestive heart failure Shock, septic Pneumonia, likely gram negative Ascites Small bilateral pleural effusions Hepatitis C Events: Remains on supplemental oxygen, 2 LPM NC Taper O2 as tolerated On pressors for hemodynamic support Levophed 8 mcg/min Titrate to keep mean arterial pressure greater than 65 mmHg. Incentive spirometry Continue antibiotics Diarrhea - C. diff negative Patient refused HD today. Taper pressors as tolerated Labs and imaging reviewed. Rest of plan as noted below. Plan: Supplemental oxygen Titrate to keep O2 sats above 92%. On pressors for hemodynamic support Titrate to keep mean arterial pressure greater than [address] abdomen and pelvis demonstrates innumerable bilateral calcified cystic masses seen throughout the kidneys. Small volume ascites. Small bilateral pleural effusions. S/p PICC line. Stool for C. diff negative. Wound care Monitor hemoglobin Transfuse if less than 7.0 g/dL Continue antibiotics Follow up cultures Incentive spirometry Monitor WBC Monitor platelets Monitor lactic acid Maintain euvolemia Monitor renal function. Monitor electrolytes. Supplement as necessary. Monitor ins and outs. HD per Nephrology Avoid volume overload GI/DVT prophylaxis. Prognosis: Poor given patient's multiple co-morbidities. Condition: Critical Rest of plan per hospitalist and other consultants. A total of 35 minutes of critical care time was spent reviewing the patient record, examining the patient, making a diagnostic and therapeutic plan, discussing this plan with the medical personnel, following up on diagnostic studies and following the patient for clinical stability excluding any and all procedures. At least 50% of this time was spent in direct, [id number] contact. Thank you, Dr. Pitts, for allowing me to participate in this patient's care. Further recommendations will depend on the patient's clinical course. Please do not hesitate to contact me if you have any questions or concerns. This medical document was created using an electronic medical record system with [employer] dictation system. Although these documentations are being carefully reviewed, there may still be some phonetic and typographical changes. The errors are purely typographical, due to imperfection on the software program, and do not reflect any compromise in the patient's medical care. Dietary Evaluation Review Comments: 1. Nepro PO 19g Pro, 420kcal, BIDWM providing 38 gProtein 840kcal in two servings,if pt can drink both. 2. Consider Fam BID Fruit Punch flavor for promoting wound healing Expected Outcomes/Goals: Improved appetite, healed wounds, gradual wt gain. Plan discussed with: Other (SUSANNAH Sibley) Critical Care Time(min): 35 CC Plasma Assessment Blood Product Administration S: [id number] TONG BLUNT MD Sep 15, 2024 20:29
--- NOTE | 2024-09-15 20:39 | DVHPN2 ---
Progress Note Date Seen: Sep 14, 2024 Has the PT tested + for MRSA If YES, has PT been informed?: No Medical Necessity Reason Pt with a Central, PICC or Fol: Yes Subjective Patient reports: No new complaints Review of Systems: Deferred Objective vital signs Vital Sign Date Time Temp Pulse Resp B/P (MAP) Pulse Ox O2 Delivery O2 Flow Rate FiO2 09/15/24 19:27 77 18 90/60 77 2.0 09/15/24 18:00 Nasal Cannula* 28 09/15/24 17:00 97.3 97.3 Total Intake and Output 09/14/24 09/14/24 09/15/24 15:00 23:00 07:00 Intake Total 441.875 ml 428.7495 ml 333.750 ml Output Total 0 ml Balance 441.875 ml 428.7495 ml 333.750 ml medications Current Medications Medications Dose Ordered Sig/Cameron Route Start Time Stop Time Status Last Admin Dose Admin Vancomycin HCl 0 ml @ 0 mls/hr UD IV 09/13/24 14:00 Heparin Sodium (Porcine) 5,000 units Q8H SC 09/13/24 14:00 Ondansetron HCl 4 mg Q4HP PRN IV 09/13/24 14:00 Nitroglycerin 0.4 mg Q5MINP PRN SL 09/13/24 14:00 Norepinephrine Bitartrate 16 mg/ Sodium Chloride 250 ml @ 1.875 mls/ hr Q24H IV 09/13/24 18:00 09/14/24 23:53 9.375 MLS/HR Acetaminophen/ Hydrocodone Bitart 1 tab Q6HP PRN PO 09/13/24 22:00 09/13/24 22:02 1 TAB Acetaminophen 650 mg Q6HP PRN PO 09/13/24 22:00 Midodrine 5 mg TID@0600,1200,1800 PO 09/15/24 06:00 09/15/24 18:08 5 MG Meropenem 50 ml @ 17 mls/hr Q12HR IV 09/15/24 22:00 Albuterol 2.5 mg Q8HR NEB 09/15/24 14:00 09/15/24 13:58 2.5 MG Ipratropium [place] 0.5 mg Q8HR NEB 09/15/24 08:45 09/15/24 13:58 0.5 MG Diagnostic Test (Pha) 1 strip Q6HR 09/15/24 12:00 09/15/24 18:08 1 STRIP Doxycycline Hyclate 100 ml @ 50 mls/hr Q12H IV 09/15/24 20:00 UNV Examination: GENERAL:Normal, LUNGS:Abnormal, MSK:Abnormal, NEURO:Normal laboratory and microbiology Laboratory Tests 09/15/24 03:33 Test 09/15/24 03:33 Range/Units Serum Glucose 75 74-106 mg/dL Microbiology Date/Time Source Procedure Growth Status 09/15/24 08:00 Stool Clostridium difficile Toxin Assay - Final Complete 09/14/24 11:27 Nose MRSA Screen - Final Complete 09/13/24 14:12 Blood Blood Culture - Preliminary NO GROWTH AFTER 48 HOURS OF INCUBATION. Resulted Problem List/Assessment/Plan Problem List/Assessment/Plan End-stage renal disease on hemodialysis Acute hypoxic respiratory failure Shock History of diastolic heart failure Anemia due to chronic kidney disease Recommendations HD Tomorrow Vasopressors as needed Plan discussed with: Patient, Other Dietary Evaluation Review Comments: 1. Nepro PO 19g Pro, 420kcal, BIDWM providing 38 gProtein 840kcal in two servings,if pt can drink both. 2. Consider Fam BID Fruit Punch flavor for promoting wound healing Expected Outcomes/Goals: Improved appetite, healed wounds, gradual wt gain. CC Plasma Assessment Blood Product Administration S: [id number] CHADD ALVARADO MD Sep 15, 2024 20:39
--- NOTE | 2024-09-15 20:40 | DVHPN2 ---
Progress Note Date Seen: Sep 15, 2024 Has the PT tested + for MRSA If YES, has PT been informed?: No Medical Necessity Reason Pt with a Central, PICC or Fol: Yes Subjective Patient reports: No new complaints (Initially refused hemodialysis today but later agreed) Review of Systems: HEENT:Normal, CVS:Normal, RESPIRATORY:Normal, GI:Normal, :Normal, MSK:Normal, NEURO:Normal Objective vital signs Vital Sign Date Time Temp Pulse Resp B/P (MAP) Pulse Ox O2 Delivery O2 Flow Rate FiO2 09/15/24 19:27 77 18 90/60 77 2.0 09/15/24 18:00 Nasal Cannula* 28 09/15/24 17:00 97.3 97.3 Total Intake and Output 09/14/24 09/14/24 09/15/24 15:00 23:00 07:00 Intake Total 441.875 ml 428.7495 ml 333.750 ml Output Total 0 ml Balance 441.875 ml 428.7495 ml 333.750 ml medications Current Medications Medications Dose Ordered Sig/Cameron Route Start Time Stop Time Status Last Admin Dose Admin Vancomycin HCl 0 ml @ 0 mls/hr UD IV 09/13/24 14:00 Heparin Sodium (Porcine) 5,000 units Q8H SC 09/13/24 14:00 Ondansetron HCl 4 mg Q4HP PRN IV 09/13/24 14:00 Nitroglycerin 0.4 mg Q5MINP PRN SL 09/13/24 14:00 Norepinephrine Bitartrate 16 mg/ Sodium Chloride 250 ml @ 1.875 mls/ hr Q24H IV 09/13/24 18:00 09/14/24 23:53 9.375 MLS/HR Acetaminophen/ Hydrocodone Bitart 1 tab Q6HP PRN PO 09/13/24 22:00 09/13/24 22:02 1 TAB Acetaminophen 650 mg Q6HP PRN PO 09/13/24 22:00 Midodrine 5 mg TID@0600,1200,1800 PO 09/15/24 06:00 09/15/24 18:08 5 MG Meropenem 50 ml @ 17 mls/hr Q12HR IV 09/15/24 22:00 Albuterol 2.5 mg Q8HR NEB 09/15/24 14:00 09/15/24 13:58 2.5 MG Ipratropium [place] 0.5 mg Q8HR NEB 09/15/24 08:45 09/15/24 13:58 0.5 MG Diagnostic Test (Pha) 1 strip Q6HR 09/15/24 12:00 09/15/24 18:08 1 STRIP Doxycycline Hyclate 100 ml @ 50 mls/hr Q12H IV 09/15/24 20:00 UNV Examination: LUNGS:Abnormal laboratory and microbiology Laboratory Tests 09/15/24 03:33 Test 09/15/24 03:33 Range/Units Serum Glucose 75 74-106 mg/dL Microbiology Date/Time Source Procedure Growth Status 09/15/24 08:00 Stool Clostridium difficile Toxin Assay - Final Complete 09/14/24 11:27 Nose MRSA Screen - Final Complete 09/13/24 14:12 Blood Blood Culture - Preliminary NO GROWTH AFTER 48 HOURS OF INCUBATION. Resulted Problem List/Assessment/Plan Problem List/Assessment/Plan End-stage renal disease on hemodialysis Acute hypoxic respiratory failure Shock History of diastolic heart failure Anemia due to chronic kidney disease Recommendations HD Today UF 4L Vasopressors as needed Plan discussed with: Patient Dietary Evaluation Review Comments: 1. Nepro PO 19g Pro, 420kcal, BIDWM providing 38 gProtein 840kcal in two servings,if pt can drink both. 2. Consider Fam BID Fruit Punch flavor for promoting wound healing Expected Outcomes/Goals: Improved appetite, healed wounds, gradual wt gain. CC Plasma Assessment Blood Product Administration S: [id number] CHADD ALVARADO MD Sep 15, 2024 20:40
[2024-09-15] MEDS: MEROPENEM 500MG IVPB 50 ML IV SCH (22:47)
[2024-09-15] MEDS: DOXYCYCLINE 100MG/100ML 100 ML IV SCH (22:51)
[2024-09-16] VITALS (124 sets, daily range): BP systolic 84–120; BP diastolic 52–79; PULSE 70–83; RESP 16–35; TEMP 96.4–97.8; O2SAT 88–100
[2024-09-16 04:33] LABS: Hematocrit 30.6 % (41.0-53.0); Hemoglobin 9.8 g/dL (13.5-17.5); Mean Corpuscular Volume 91.6 fL (80.0-100.0); Red Blood Cells 3.34 10^6/uL (4.5-5.90)
[2024-09-16 04:35] LABS: Mean Corpuscular Hemoglobin 29.3 pg (28.0-32.0); Platelet Count (auto) 99 10^3/uL (140-450); Red Cell Distribution Width 19.2 % (11.8-14.3)
[2024-09-16 04:42] LABS: White Blood Cell 32.4 10^3/uL (4.4-10.8)
[2024-09-16 04:44] LABS: Band Neutrophils % (manual) 0; Basophils % (manual) 0 (0.0-2.0); Blast Cells 0; Eosinophils % (manual) 0 (0-7); Metamyelocytes % 0; Myelocytes % 0; Promyelocytes % 0; Reactive Lymphocytes 0
[2024-09-16 04:48] LABS: Alkaline Phosphatase 113 U/L (46-116); Anion Gap 7 (5-15); Aspartate Aminotransferase 11 U/L (13-40); BUN/Creatinine Ratio 5.4 (10.0-20.0); Blood Urea Nitrogen 25 mg/dL (9-23); Carbon Dioxide 27 mmol/L (20-31); Chloride 102 mmol/L (98-107); Glucose 144 mg/dL (74-106); Potassium 3.4 mmol/L (3.5-5.1); Sodium 136 mmol/L (136-145); Total Protein 6.5 g/dL (5.7-8.2)
[2024-09-16 04:49] LABS: Alanine Aminotransferase < 9 U/L (7-40); Albumin 2.4 g/dL (3.2-4.8); Bilirubin, Total 0.6 mg/dL (0.2-1.0); Calcium 7.8 mg/dL (8.7-10.4)
--- NOTE | 2024-09-16 05:13 | DVH ---
EXAM: XR Chest, 1 View CLINICAL INDICATION: ACUTE RESP FAILURE TECHNIQUE: Frontal view of the chest. COMPARISON: XY CHEST PORTABLE on DOS: 09/15/24, XY CHEST PORTABLE on DOS: 09/13/24, XY CHEST XRAY 1 EW on DOS: 08/14/24, XY CHEST PORTABLE on DOS: 08/11/24, XY CHEST PORTABLE on DOS: 08/08/24 FINDINGS: LUNGS AND PLEURAL SPACES: See below. HEART: Cardiomegaly with pulmonary congestion and edema. Superimposed pneumonia cannot be excluded. MEDIASTINUM: Unremarkable. Normal mediastinal contour. BONES/JOINTS: Unremarkable. No acute fracture. TUBES, LINES AND DEVICES: Right internal jugular central venous catheter tip in the superior vena c anabelle. OTHER FINDINGS: . .. IMPRESSION: Cardiomegaly with pulmonary congestion and edema. Superimposed pneumonia cannot be excluded.
[2024-09-16 05:25] LABS: Lymphocytes % (manual) 5 (10.0-50.0); Monocytes % (manual) 2 (0-12)
[2024-09-16 05:26] LABS: Large Platelets FEW; Platelet Estimate Decreased
[2024-09-16] MEDS: guaiFENesin-DM 100/10mg/5ml SYR PO PRN (05:59)
[2024-09-16] MEDS: POTASSIUM CHL 10 Meq TABLET PO ONE (07:07)
[2024-09-16] MEDS: metroNIDAZOLE 500MG/100ML 100 ML IV SCH (11:18)
[2024-09-16] MEDS: PSYLLIUM PWD 5.8GM PKG GT ONE (12:37)
--- NOTE | 2024-09-16 16:19 | DVHPN2 ---
Progress Note Date Seen: Sep 16, 2024 Has the PT tested + for MRSA If YES, has PT been informed?: No Medical Necessity Reason Pt with a Central, PICC or Fol: Yes Subjective Patient reports: Other Review of Systems: :Abnormal (diarrhoea) Objective vital signs Vital Sign Date Time Temp Pulse Resp B/P (MAP) Pulse Ox O2 Delivery O2 Flow Rate FiO2 09/16/24 14:46 79 20 100 09/16/24 14:36 Nasal Cannula* 2 28 09/16/24 10:45 09/16/24 04:00 96.4 96.4 Total Intake and Output 09/15/24 09/15/24 09/16/24 15:00 23:00 07:00 Intake Total 315.3 ml 434.975 ml 513.750 ml Balance 315.3 ml 434.975 ml 513.750 ml medications Current Medications Medications Dose Ordered Sig/Cameron Route Start Time Stop Time Status Last Admin Dose Admin Heparin Sodium (Porcine) 5,000 units Q8H SC 09/13/24 14:00 Ondansetron HCl 4 mg Q4HP PRN IV 09/13/24 14:00 Nitroglycerin 0.4 mg Q5MINP PRN SL 09/13/24 14:00 Norepinephrine Bitartrate 16 mg/ Sodium Chloride 250 ml @ 1.875 mls/ hr Q24H IV 09/13/24 18:00 09/16/24 01:03 5.625 MLS/HR Acetaminophen/ Hydrocodone Bitart 1 tab Q6HP PRN PO 09/13/24 22:00 09/13/24 22:02 1 TAB Acetaminophen 650 mg Q6HP PRN PO 09/13/24 22:00 Midodrine 5 mg TID@0600,1200,1800 PO 09/15/24 06:00 09/16/24 12:42 5 MG Meropenem 50 ml @ 17 mls/hr Q12HR IV 09/15/24 22:00 09/16/24 10:37 17 MLS/HR Albuterol 2.5 mg Q8HR NEB 09/15/24 14:00 09/16/24 14:46 2.5 MG Ipratropium [place] 0.5 mg Q8HR NEB 09/15/24 08:45 09/16/24 14:46 0.5 MG Diagnostic Test (Pha) 1 strip Q6HR 09/15/24 12:00 09/16/24 12:32 1 STRIP Guaifenesin/ Dextromethorphan 10 ml Q4HP PRN PO 09/16/24 03:15 09/16/24 05:59 10 ML Metronidazole 100 ml @ 100 mls/hr Q8HR IV 09/16/24 09:15 09/16/24 11:18 100 MLS/HR laboratory and microbiology Laboratory Tests 09/16/24 03:35 Test 09/16/24 03:35 Range/Units Serum Glucose 144 H 74-106 mg/dL Microbiology Date/Time Source Procedure Growth Status 09/15/24 08:00 Stool Clostridium difficile Toxin Assay - Final Complete 09/14/24 11:27 Nose MRSA Screen - Final Complete 09/13/24 14:12 Blood Blood Culture - Preliminary NO GROWTH AFTER 72 HOURS OF INCUBATION. Resulted Problem List/Assessment/Plan Problem List/Assessment/Plan End-stage renal disease on hemodialysis Acute hypoxic respiratory failure septic Shock History of diastolic heart failure Anemia due to chronic kidney disease Recommendations HD Tomorrow ID evaluation Vasopressors as needed Plan discussed with: Patient Dietary Evaluation Review Comments: 1. Nepro PO 19g Pro, 420kcal, BIDWM providing 38 gProtein 840kcal in two servings,if pt can drink both. 2. Consider Fam BID Fruit Punch flavor for promoting wound healing Expected Outcomes/Goals: Improved appetite, healed wounds, gradual wt gain. CC Plasma Assessment Blood Product Administration S: [id number] CHADD ALVARADO MD Sep 16, 2024 16:19
--- NOTE | 2024-09-16 19:43 | DVHPNRES ---
Progress Note Date Seen: Sep 16, 2024 Resident Creating Document: CONNOR ALBERTS RESIDENT Has the PT tested + for MRSA If YES, has PT been informed?: No Medical Necessity Reason Pt with a Central, PICC or Fol: Yes Subjective Review of Systems This is a 59-year-old male with a past medical history of cerebrovascular accident, end-stage renal disease on hemodialysis (Saturday, Saturday, Saturday), hyperlipidemia, and hypertension, who presented with shortness of breath since the prior day. The patient was at home with his daughter and was on 2 L nasal cannula, which he increased to 4 L due to worsening dyspnea. Due to severe respiratory distress, he required BiPAP upon arrival to the emergency department. On evaluation, the patient was found to be hypotensive and was started on norepinephrine drip (Levo). He also had elevated lactate levels (3.2) concerning for sepsis. Hemoglobin had trended down from 10.2 to 7.6 since his last admission, and he was noted to have ESRD secondary to autosomal dominant polycystic kidney disease. Chest X-ray revealed cardiomegaly and signs of heart failure. Creatinine was elevated at 5.13 with a GFR of 10.2. No fever, chills, or signs of infection reported at the time. The patient denied GI bleeding and had no black or bloody stools, nausea, or vomiting. The patient previously had a bloodstream infection with gram-positive cocci (Staphylococcus hemolyticus) in July 2024 and had since been monitored with negative surveillance cultures. CT of the abdomen revealed innumerable bilateral calcified cystic kidney masses, consistent with polycystic kidney disease. Patient is ICU status for sepsis workup and hemodynamic support. Blood cultures and ceftriaxone + azithromycin were initiated. A triple lumen central line was placed for vasopressor administration. He is also anemic, likely secondary to chronic disease, and received one unit of PRBCs. HD done 09/14/24 09/15/24: wbc is trending high, levophed 10 mcg, patient was wheezing, solumedrol once, breathing treatments PRN, ceftriaxone and AZT was changed to meropenem + doxycycline, HD today, continue vancomycin, patient is also having diarrhea 09/16/24: wbc is trending high, patient is having multiples diarrheas, vanco and doxycicline DC, metronidazole added, levophed off since 8 am, patient will need levophed for HD, labile BPs Objective vital signs Vital Sign Date Time Temp Pulse Resp B/P (MAP) Pulse Ox O2 Delivery O2 Flow Rate FiO2 09/16/24 19:00 76 27 117/77 (90) 94 09/16/24 18:00 Nasal Cannula* 2 28 09/16/24 16:00 96.7 96.7 Total Intake and Output 09/15/24 09/15/24 09/16/24 15:00 23:00 07:00 Intake Total 315.3 ml 434.975 ml 513.750 ml Balance 315.3 ml 434.975 ml 513.750 ml medications Current Medications Medications Dose Ordered Sig/Cameron Route Start Time Stop Time Status Last Admin Dose Admin Heparin Sodium (Porcine) 5,000 units Q8H SC 09/13/24 14:00 Ondansetron HCl 4 mg Q4HP PRN IV 09/13/24 14:00 Nitroglycerin 0.4 mg Q5MINP PRN SL 09/13/24 14:00 Norepinephrine Bitartrate 16 mg/ Sodium Chloride 250 ml @ 1.875 mls/ hr Q24H IV 09/13/24 18:00 09/16/24 01:03 5.625 MLS/HR Acetaminophen/ Hydrocodone Bitart 1 tab Q6HP PRN PO 09/13/24 22:00 09/13/24 22:02 1 TAB Acetaminophen 650 mg Q6HP PRN PO 09/13/24 22:00 Midodrine 5 mg TID@0600,1200,1800 PO 09/15/24 06:00 09/16/24 18:50 5 MG Meropenem 50 ml @ 17 mls/hr Q12HR IV 09/15/24 22:00 09/16/24 10:37 17 MLS/HR Albuterol 2.5 mg Q8HR NEB 09/15/24 14:00 09/16/24 14:46 2.5 MG Ipratropium [place] 0.5 mg Q8HR NEB 09/15/24 08:45 09/16/24 14:46 0.5 MG Diagnostic Test (Pha) 1 strip Q6HR 09/15/24 12:00 09/16/24 18:51 1 STRIP Guaifenesin/ Dextromethorphan 10 ml Q4HP PRN PO 09/16/24 03:15 09/16/24 05:59 10 ML Metronidazole 100 ml @ 100 mls/hr Q8HR IV 09/16/24 09:15 09/16/24 16:46 100 MLS/HR Examination General: Alert,nasal canula Cardiovascular: regular rhythm, no mrmurs, no gallops Respiratory: Bilateral breath sounds, diminished at bases, no wheezes GI: Soft, tender in lower quadrant, no hepatosplenomegaly Extremities: No edema, PermCath in place Neuro: Alert, no focal deficits Skin: No rash, no signs of bleeding Rectal area with excoriations laboratory and microbiology Laboratory Tests 09/16/24 03:35 Test 09/16/24 03:35 Range/Units Serum Glucose 144 H 74-106 mg/dL Microbiology Date/Time Source Procedure Growth Status 09/15/24 08:00 Stool Clostridium difficile Toxin Assay - Final Complete 09/14/24 11:27 Nose MRSA Screen - Final Complete 09/13/24 14:12 Blood Blood Culture - Preliminary NO GROWTH AFTER 72 HOURS OF INCUBATION. Resulted Problem List/Assessment/Plan Problem List/Assessment/Plan Acute hypoxic respiratory failure likely secondary to fluid overload Septic shock, likely from unknown source (prior bacteremia with gram-positive cocci) Possible PNA gram+/gram - Possible gastroenteritis: diarrhea ESRD on hemodialysis (MWF), likely volume overloaded Acute on chronic anemia likely secondary to CKD Polycystic kidney disease History of CVA Hyperlipidemia Small bilateral pleural effusions and ascites Chronic Hep C infection ICU status Levophed off since 8 am Patient will need levophed for HD Meropenem+ Metronidazole Metamucil ID consulted due to diarrheas: c diff neg, cultures negative HD Heparin 5000 ui TID No need of bipap for now Nephrology and Pulmonology on the case Midodrine Pending cultures Breathing treatments Patient doesnt produce urine wound care due to excoriations in rectal area Patient didnt tolerate rectal tube Hold on in antidiarrheics until ID consult Case discussed with Dr Cunha Plan discussed with: Patient, Other (rn) My Orders My Orders Orders - CONNOR ALBERTS Procedure Category Date Status Time Metronidazole PHA 09/16/24 In Process 500mg/100ml (Flagyl 09:15 Psyllium Powder PHA 09/16/24 In Process (Metamucil Powder) 09:15 Dietary Evaluation Review Comments: 1. Nepro PO 19g Pro, 420kcal, BIDWM providing 38 gProtein 840kcal in two servings,if pt can drink both. 2. Consider Fam BID Fruit Punch flavor for promoting wound healing Expected Outcomes/Goals: Improved appetite, healed wounds, gradual wt gain. CC Plasma Assessment Blood Product Administration S: [id number] Date of Service: Sep 16, 2024 Billing Provider: SOFIYA CUNHA DO Common Visit Codes: 31159-[id number] CARE 30-74 MIN CONNOR ALBERTS RESIDENT Sep 16, 2024 19:43 SOFIYA CUNHA DO Sep 16, 2024 20:51
[2024-09-16] MEDS ORDERED: VANCOMYCIN HCL 125 MG CAP PO ONE (20:45)
[2024-09-16] MEDS ORDERED: DOXYCYCLINE 100MG/100ML 100 ML IV ONE (20:45)
[2024-09-16] MEDS: DOXYCYCLINE 100MG/100ML 100 ML IV SCH (21:16)
--- NOTE | 2024-09-16 21:20 | DVHCONRES ---
Date Seen: Sep 16, 2024 Resident Creating Document: LANA HOPKINS RESIDENT Referring Physician Dr Mac Reason for Consultation Septic shock History of Present Illness Bobby Gamez is a 59-year-old male who presents to ED with chief complaint of progressive dyspnea in functional class IV which started 3 days before his admission, associated with multiple episodes of diarrhea which started four days before his admission. During ER evaluation patient was found to have severe respiratory distress and hypotension, requiring BiPAP and IV vasopressors (norepinephrine). Patient has recent hospitalization secondary to community- acquired pneumonia secondary to Staphylococcus haemolyticus completing IV antibiotic treatment with vancomycin for two weeks (he also presented bacteremia to Staph hominis, considered contaminant). Patient reports end-stage renal disease and is on hemodialysis via a right tunneled hemodialysis catheter (which was recently exchanged on 07/2024), patient does have an AV fistula on right arm which thrills (only 1-month-old). 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 Hepatitis-C, treated previously. Past surgical history: Placement of tunnel hemodialysis catheter, right AV fis isak (has not been used yet, 2-month-old) Family history: Patient lives with daughter. Quit smoking 3 years ago (5 pack- year history of smoking). Denies current tobacco, alcohol and other drug abuse. Allergies: Codeine Home medication: Aspirin 81 mg p.o. daily, atorvastatin 40 mg p.o. daily, cinacalcet 60 mg p.o. daily, clopidogrel 75 mg p.o. daily, ferric citrate, hydrocodone, omeprazole 20 mg p.o. daily, sevelamer. Patient seen and examined at bedside. Patient currently has no new complaints. Did present six bowel movements of nonbloody diarrhea on 09/16/2024. He is on ICU status due to intermittent requirement of IV vasopressors, currently with no requirement. Past Medical History Per HPI Past Surgical History Per HPI Family History: Colon cancer Diabetes mellitus G8 FATHER, Onset:Unknown FH: cancer G8 MOTHER G8 FATHER Hypertension G8 MOTHER Family History Per HPI Social History Per HPI Allergies: Coded Allergies: NO KNOWN ALLERGIES (Unverified , 08/06/24) Allergies Per HPI Home Meds Active Scripts Pantoprazole Sodium Sesquihydr (Protonix) 40 Mg Tab, 40 MG PO DAILY for 7 Days, #7 TAB Prov:CONNOR ALBERTS RESIDENT 09/22/24 Acetaminophen (Acetaminophen) 325 Mg Tab, 325 MG PO Q6HP PRN for 5 Days, #20 TAB Prov:MARIELA MeyerCONNOR RESIDENT 09/22/24 Apixaban Base (ELIQUIS) 2.5 Mg Tab, 2.5 MG PO BID for 30 Days, #60 TAB Prov:LANA HOPKINS RESIDENT 08/15/24 Reported Medications Aspirin (Aspirin Low Dose) 81 Mg Tab, 1 TAB PO DAILY for 90 Days, #90 09/14/24 Atorvastatin Calcium (ATORVASTATIN CALCIUM) 40 Mg Tab, 1 TAB PO DAILY for 90 Days, #90 09/14/24 Cinacalcet HCl (Cinacalcet Hydrochloride) 90 Mg Tab, 1 TAB PO DAILY for 30 Days, #30 09/14/24 Sevelamer Carbonate (Sevelamer Carbonate) 800 Mg Tab, 3 TAB PO TIDWM for 30 Days, #270 07/08/24 Omeprazole (Omeprazole Dr) 20 Mg Cap, 1 CAP PO DAILY for 30 Days, #30 07/08/24 Ferric Citrate (Auryxia) 210 Mg Tab, 2 TAB PO TIDWM, TAB 05/28/24 Current Medications Current Medications Medications (Trade) Dose Ordered Sig/Cameron Route PRN Reason Start Time Stop Time Status Last Admin Meropenem 50 ml @ 17 mls/hr Q12HR IV 09/15/24 22:00 09/16/24 10:37 Guaifenesin/ Dextromethorphan (Robitussin-Dm Liquid) 10 ml Q4HP PRN PO FOR COUGH 09/16/24 03:15 09/16/24 05:59 Metronidazole 100 ml @ 100 mls/hr Q8HR IV 09/16/24 09:15 09/16/24 16:46 Review of Systems Per HPI Vital Signs Vital Signs Date Time Temp Pulse Resp B/P (MAP) Pulse Ox O2 Delivery O2 Flow Rate FiO2 09/16/24 20:00 22 94 Nasal Cannula* 2 28 09/16/24 20:00 76 09/16/24 19:00 117/77 (90) 09/16/24 16:01 96.4 96.4 Physical Exam Patient lying in bed, in no acute distress General: Lucid, afebrile, mucosae are moist Cardiovascular: Normal S1 and S2. No murmurs, gallops or rubs Respiratory: Regular ventilation mechanics, tachypneic. Bilateral rhonchus predominantly in bases, rest of lung auscultation is clear. Currently on nasal cannula 2 liters/minute. Abdomen: Soft, nontender, no organomegaly, normal bowel sounds. Abdominal wall pitting edema MSK/skin: Mobilizes 4 limbs. Skin is dry and warm. AV fistula on right arm with thrill, normal functioning. Has right subclavian tunneled hemodialysis catheter, no signs of infection. Neurological: Oriented in 3 spheres. No motor no sensitive deficits. Pupils are isocoric and reactive Labs/Diagnostic Data Labs Test 09/16/24 18:46 09/16/24 11:05 09/16/24 03:35 09/15/24 03:33 Range/Units POC Glucose 106 70-106 mg/dl Random Vancomycin Level 16.1 H 5-10 ug/mL White Blood Count 32.4 *H 4.4-10.8 10^3/uL Red Blood Count 3.34 L 4.5-5.90 10^6/uL Hemoglobin 9.8 L 13.5-17.5 g/dL Hematocrit 30.6 L 41.0-53.0 % Mean Corpuscular Volume 91.6 80.0-100.0 fL Mean Corpuscular Hemoglobin 29.3 28.0-32.0 pg Mean Corpuscular Hemoglobin Concent 32.0 32.0-36.0 g/dL Red Cell Distribution Width 19.2 H 11.8-14.3 % Platelet Count 99 L 140-450 10^3/uL Mean Platelet Volume 8.2 6.9-10.8 fL Neutrophils (%) (Auto) 37.0-80.0 % Lymphocytes (%) (Auto) 10.0-50.0 % Monocytes (%) (Auto) 0.0-12.0 % Basophils (%) (Auto) 0.0-2.0 % Neutrophils # (Auto) 1.6-8.6 10 ^3/uL Lymphocytes # (Auto) 0.4-5.4 10 ^3/uL Monocytes # (Auto) 0-1.3 10 ^3/uL Differential Total Cells Counted 100.0 100 Neutrophils % (Manual) 93 H 37.0-80.0 Band Neutrophils % (Manual) 0 Lymphocytes % (Manual) 5 L 10.0-50.0 Monocytes % (Manual) 2 0-12 Eosinophils % (Manual) 0 0-7 Basophils % (Manual) 0 0.0-2.0 Metamyelocytes % (manual) 0 Myelocytes % (Manual) 0 Promyelocytes % (Manual) 0 Blast Cells % (Manual) 0 Reactive Lymphocytes 0 Platelet Estimate Decreased Large Platelets Few Sodium Level 136 136-145 mmol/L Potassium Level 3.4 L 3.5-5.1 mmol/L Chloride Level 102 98-107 mmol/L Carbon Dioxide Level 27 20-31 mmol/L Anion Gap 7 5-15 Blood Urea Nitrogen 25 H 9-23 mg/dL Creatinine 4.59 H 0.700-1.30 mg/dL Glomerular Filtration Rate Calc 14 >90 mL/min BUN/Creatinine Ratio 5.4 L 10.0-20.0 Serum Glucose 144 H 74-106 mg/dL Calcium Level 7.8 L 8.7-10.4 mg/dL Total Bilirubin 0.6 0.2-1.0 mg/dL Aspartate Amino Transferase (AST) 11 L 13-40 U/L Alanine Aminotransferase (ALT) < 9 7-40 U/L Alkaline Phosphatase 113 46-116 U/L C-Reactive Protein High Sensitivity 17.14 H <1.0 mg/dL Total Protein 6.5 5.7-8.2 g/dL Albumin 2.4 L 3.2-4.8 g/dL Phosphorus Level 3.2 2.4-5.1 mg/dL Magnesium Level 2.0 1.6-2.6 mg/dL Test 09/14/24 11:27 09/14/24 04:54 09/13/24 15:11 09/13/24 13:20 Range/Units Influenza Type A Antigen Negative Negative Influenza Type B Antigen Negative Negative SARS-CoV-2 Antigen (Rapid) Negative NEGATIVE Eosinophils (%) (Auto) 1.8 0.0-7.0 % Eosinophils # (Auto) 0.4 0-0.8 10 ^3/uL Basophils # (Auto) 0.1 0-0.2 10 ^3/uL Nucleated Red Blood Cells 0.1 % Lactic Acid Level 1.7 0.4-2.0 mmol/L Blood Gas Specimen Type Arterial Blood Gas Sample Site Right radial Blood Gas Patient Temperature 37.0 Arterial Blood Date Drawn [id number] Arterial Blood pH 7.460 H 7.350-7.450 Arterial Blood Partial Pressure CO2 36.7 35.0-48.0 mmHg Arterial Blood Partial Pressure O2 66.2 L 83.0-108.0 mmHg Arterial Blood HCO3 25.5 21.0-28.0 mmol/L Arterial Blood Oxygen Saturation 93.0 L 94.0-98.0 % Arterial Blood Base Excess 1.7 -2.0-3.0 mmol/L Arterial Blood Oxyhemoglobin 91.8 L 94.0-98.0 % Arterial Blood Carboxyhemoglobin 1.0 0.5-1.5 % Arterial Blood Methemoglobin 0.3 0.0-1.5 % Gallo Test Yes Blood Gas Total Hemoglobin 9.40 L 13.5-17.5 g/dL Blood Gas Set Respiration Rate 12.0 Blood Gas Modality Mask - bipap FiO2 % 35.0 Blood Gas EPAP 5 Blood Gas IPAP 12 Test 09/13/24 13:11 09/13/24 11:13 Range/Units Hepatitis A IgM Antibody Negative Hepatitis B Surface Antigen Negative Negative Hepatitis B Core IgM Antibody Negative Negative Hepatitis C Antibody Reactive *A Negative Smudge Cells 3 /100 WBC Troponin I High Sensitivity 6 </=54 ng/L B-Type Natriuretic Peptide 103.23 0-100 pg/mL Microbiology Date/Time Source Procedure Growth Status 09/15/24 08:00 Stool Clostridium difficile Toxin Assay - Final Complete 09/14/24 11:27 Nose MRSA Screen - Final Complete 09/13/24 14:12 Blood Blood Culture - Preliminary NO GROWTH AFTER 72 HOURS OF INCUBATION. Resulted Assessment Septic shock secondary to community-acquired pneumonia Community-acquired pneumonia (previous sputum culture positive for Staphylococcus hemolyticus) Nonbloody diarrhea - rule out C diff ESRD secondary to autosomal dominant polycystic kidney disease on hemodialysis Saturday, Saturday and Saturday - under apixaban Chronic pain secondary to left clavicular fracture and left 4th and seven rib fracture after mechanical fall in patient with ESRD Hypertension Dyslipidemia History of multiple CVA - residual left-sided weakness - under apixaban Cataract with partial vision loss History of hepatitis-C Plan/Recommendation Ordered sputum sample. Previous sputum was positive for Staphylococcus haemolyticus, completed course of IV antibiotics with vancomycin for two weeks post dialysis. Indicated empiric IV antibiotic (meropenem and doxycycline). C diff toxin is negative, have ordered GDH antigen (is sent out). Started patient empirically on p.o. vancomycin and IV metronidazole 09/13/2024 Blood cultures negative at the moment Hemodialysis catheter on right subclavian does not press infected, was recently switched in July 2024. Currently patient is off IV vasopressors. Appreciate input of Nephrology and pulmonology specialist. Rest of management per primary team. Discussed plan with Dr. García, patient and nurses: Continue treatment for probable community-acquired pneumonia with doxycycline and meropenem. Have indicated empiric treatment for C diff with p.o. vancomycin and IV Flagyl. Patient currently off IV vasopressors. Ordered sputum culture and GDH antigen for C diff, pending. Patient has poor prognosis Critical care time spent including discussion with nursing and family: 62 minutes I personally verified the history, examined the patient with the student, and performed the medical decision-making. I agree with the documentation & plan of care - Celeste García MD Plan discussed with: Patient, Other (Nurses) LANA HOPKINS RESIDENT Sep 16, 2024 21:20 CELESTE GARCÍA MD Sep 26, 2024 17:50
[2024-09-16] MEDS: VANCOMYCIN HCL 125 MG CAP PO SCH (22:42)
--- NOTE | 2024-09-16 22:56 | DVHPN2 ---
Progress Note - Dictate Date Seen: Sep 16, 2024 Has the PT tested + for MRSA If YES, has PT been informed?: No Medical Necessity Reason Pt with a Central, PICC or Fol: No Subjective Patient seen and examined at bedside. Remains on supplemental oxygen Overnight events reviewed. vital signs Vital Sign Date Time Temp Pulse Resp B/P (MAP) Pulse Ox O2 Delivery O2 Flow Rate FiO2 09/16/24 22:45 73 20 110/66 (81) 96 09/16/24 22:00 Nasal Cannula* 2 28 09/16/24 20:00 97.5 97.5 Total Intake and Output 09/15/24 09/15/24 09/16/24 15:00 23:00 07:00 Intake Total 315.3 ml 434.975 ml 513.750 ml Balance 315.3 ml 434.975 ml 513.750 ml medications Current Medications Medications Dose Ordered Sig/Cameron Route Start Time Stop Time Status Last Admin Dose Admin Heparin Sodium (Porcine) 5,000 units Q8H SC 09/13/24 14:00 Ondansetron HCl 4 mg Q4HP PRN IV 09/13/24 14:00 Nitroglycerin 0.4 mg Q5MINP PRN SL 09/13/24 14:00 Norepinephrine Bitartrate 16 mg/ Sodium Chloride 250 ml @ 1.875 mls/ hr Q24H IV 09/13/24 18:00 09/16/24 01:03 5.625 MLS/HR Acetaminophen/ Hydrocodone Bitart 1 tab Q6HP PRN PO 09/13/24 22:00 09/13/24 22:02 1 TAB Acetaminophen 650 mg Q6HP PRN PO 09/13/24 22:00 Midodrine 5 mg TID@0600,1200,1800 PO 09/15/24 06:00 09/16/24 18:50 5 MG Meropenem 50 ml @ 17 mls/hr Q12HR IV 09/15/24 22:00 09/16/24 22:42 17 MLS/HR Albuterol 2.5 mg Q8HR NEB 09/15/24 14:00 09/16/24 14:46 2.5 MG Ipratropium [place] 0.5 mg Q8HR NEB 09/15/24 08:45 09/16/24 14:46 0.5 MG Diagnostic Test (Pha) 1 strip Q6HR 09/15/24 12:00 09/16/24 18:51 1 STRIP Guaifenesin/ Dextromethorphan 10 ml Q4HP PRN PO 09/16/24 03:15 09/16/24 05:59 10 ML Metronidazole 100 ml @ 100 mls/hr Q8HR IV 09/16/24 09:15 09/16/24 21:35 100 MLS/HR Vancomycin HCl 125 mg QID PO 09/16/24 22:00 09/16/24 22:42 125 MG Doxycycline Hyclate 100 ml @ 50 mls/hr Q12H IV 09/16/24 20:45 09/16/24 21:16 50 MLS/HR objective Gen.: Patient lying in bed in no apparent distress. On supplemental oxygen. Head: Normocephalic, atraumatic. Eyes: EOMI/PERRLA. Ears: Normal hearing. Normal anatomy. Neck/trachea: Trachea midline, supple. Nose: Normal external anatomy. Mouth: Moist mucous membranes. Chest: Decreased air entry bilaterally. No wheezing or rhonchi. Cardiovascular: Positive S1, positive S2. Regular rate and rhythm. Abdomen: Positive bowel sounds in all 4 quadrants. Soft, non-tender, non- distended. : Deferred. Rectal: Deferred. Skin: Warm, dry. Intact. Extremities: 2+ radial pulses bilaterally. No lower extremity edema. Neuro: Awake, alert, oriented x3. No gross motor or sensory deficits. Cranial nerves II through XII intact. Gait not assessed. laboratory and microbiology Laboratory Tests 09/16/24 03:35 Test 09/16/24 03:35 Range/Units Serum Glucose 144 H 74-106 mg/dL Assessment/Plan Impression: Acute hypoxic respiratory failure Dependence on supplemental oxygen Chronic obstructive pulmonary disease, stable Anemia Leukocytosis Thrombocytopenia Lactic acidosis End-stage renal disease, on hemodialysis Congestive heart failure Shock, septic Pneumonia, likely gram negative Ascites Small bilateral pleural effusions Hepatitis C Events: Remains on supplemental oxygen, 2 LPM NC Taper O2 as tolerated Off Levophed, hemodynamically stable. Plan for HD in the AM. Incentive spirometry Continue antibiotics WBC elevated at 32.4 Follow up ID recommendations Monitor hemodynamics Will monitor for BP instability during hemodialysis. If stable, patient may be downgraded post hemodialysis. Labs and imaging reviewed. Rest of plan as noted below. Plan: Supplemental oxygen Titrate to keep O2 sats above 92%. Pressors if necessary for hemodynamic support Titrate to keep mean arterial pressure greater than [address] abdomen and pelvis demonstrates innumerable bilateral calcified cystic masses seen throughout the kidneys. Small volume ascites. Small bilateral pleural effusions. S/p PICC line. Stool for C. diff negative. Wound care Monitor hemoglobin Transfuse if less than 7.0 g/dL Continue antibiotics Follow up cultures Incentive spirometry Monitor WBC Monitor platelets Monitor lactic acid Maintain euvolemia Monitor renal function. Monitor electrolytes. Supplement as necessary. Monitor ins and outs. HD per Nephrology Avoid volume overload GI/DVT prophylaxis. Prognosis: Poor given patient's multiple co-morbidities. Condition: Critical Rest of plan per hospitalist and other consultants. A total of 35 minutes of critical care time was spent reviewing the patient record, examining the patient, making a diagnostic and therapeutic plan, discussing this plan with the medical personnel, following up on diagnostic studies and following the patient for clinical stability excluding any and all procedures. At least 50% of this time was spent in direct, [id number] contact. Thank you, Dr. Pitts, for allowing me to participate in this patient's care. Further recommendations will depend on the patient's clinical course. Please do not hesitate to contact me if you have any questions or concerns. This medical document was created using an electronic medical record system with [employer] dictation system. Although these documentations are being carefully reviewed, there may still be some phonetic and typographical changes. The errors are purely typographical, due to imperfection on the software program, and do not reflect any compromise in the patient's medical care. Dietary Evaluation Review Comments: 1. Nepro PO 19g Pro, 420kcal, BIDWM providing 38 gProtein 840kcal in two servings,if pt can drink both. 2. Consider Fam BID Fruit Punch flavor for promoting wound healing Expected Outcomes/Goals: Improved appetite, healed wounds, gradual wt gain. Plan discussed with: Other (SUSANNAH Lopez) Critical Care Time(min): 35 CC Plasma Assessment Blood Product Administration S: [id number] TONG BLUNT MD Sep 16, 2024 22:56
[2024-09-17] VITALS (83 sets, daily range): BP systolic 89–123; BP diastolic 57–80; PULSE 62–82; RESP 9–32; TEMP 96.4–97.7; O2SAT 88–100
[2024-09-17 04:06] LABS: Basophils # (auto) 0 10 ^3/uL (0-0.2); Basophils % (auto) 0.1 % (0.0-2.0); Eosinophils # (auto) 0 10 ^3/uL (0-0.8); Hemoglobin 9.3 g/dL (13.5-17.5); Lymphocytes # (auto) 1.3 10 ^3/uL (0.4-5.4); Lymphocytes % (auto) 6.1 % (10.0-50.0); Mean Corpuscular Hemoglobin 28.6 pg (28.0-32.0); Mean Corpuscular Hgb Conc. 31.1 g/dL (32.0-36.0); Monocytes % (auto) 4.9 % (0.0-12.0); Neutrophils # (auto) 18.8 10 ^3/uL (1.6-8.6); Neutrophils % (auto) 88.9 % (37.0-80.0); Nucleated Red Blood Cells % 0.2 %; Platelet Count (auto) 85 10^3/uL (140-450); Red Blood Cells 3.26 10^6/uL (4.5-5.90); Red Cell Distribution Width 18.8 % (11.8-14.3); White Blood Cell 21.1 10^3/uL (4.4-10.8)
[2024-09-17 04:18] LABS: Alkaline Phosphatase 99 U/L (46-116); Anion Gap 9 (5-15); BUN/Creatinine Ratio 7.3 (10.0-20.0); Carbon Dioxide 25 mmol/L (20-31); Chloride 103 mmol/L (98-107); Sodium 137 mmol/L (136-145); Total Protein 6.2 g/dL (5.7-8.2)
[2024-09-17 04:19] LABS: Bilirubin, Total 0.5 mg/dL (0.2-1.0)
[2024-09-17 04:31] LABS: Alanine Aminotransferase < 9 U/L (7-40); Aspartate Aminotransferase 13 U/L (13-40); Blood Urea Nitrogen 40 mg/dL (9-23); Glucose 115 mg/dL (74-106); Potassium 3.4 mmol/L (3.5-5.1)
[2024-09-17 04:32] LABS: Albumin 2.3 g/dL (3.2-4.8)
[2024-09-17] MEDS: POTASSIUM CHL 10 Meq TABLET PO ONE (05:29)
--- NOTE | 2024-09-17 05:57 | DVH ---
EXAM: XR Chest, 1 View CLINICAL INDICATION: ACUTE RESP FAILURE TECHNIQUE: Frontal view of the chest. COMPARISON: XY CHEST PORTABLE on DOS: 09/16/24, XY CHEST PORTABLE on DOS: 09/15/24, XY CHEST PORTABLE o n DOS: 09/13/24, XY CHEST XRAY 1 VIEW on DOS: 08/14/24, XY CHEST PORTABLE on DOS: 08/11/24 FINDINGS: LUNGS AND PLEURAL SPACES: Pulmonary congestion and edema. Pneumonia cannot be excluded. No pneumot horax. HEART: Unremarkable. No cardiomegaly. MEDIASTINUM: Unremarkable. Normal mediastinal contour. BONES/JOINTS: Unremarkable. No acute fracture. TUBES, LINES AND DEVICES: Right internal jugular central venous catheter tip in the superior vena c anabelle. OTHER FINDINGS: . . IMPRESSION: Pulmonary congestion and edema. Pneumonia cannot be excluded.
--- NOTE | 2024-09-17 09:14 | DVHPNRES ---
Progress Note Date Seen: Sep 17, 2024 Resident Creating Document: CONNOR ALBERTS RESIDENT Has the PT tested + for MRSA If YES, has PT been informed?: No Medical Necessity Reason Pt with a Central, PICC or Fol: No Subjective Review of Systems This is a 59-year-old male with a past medical history of cerebrovascular accident, end-stage renal disease on hemodialysis (Saturday, Saturday, Saturday), hyperlipidemia, and hypertension, who presented with shortness of breath since the prior day. The patient was at home with his daughter and was on 2 L nasal cannula, which he increased to 4 L due to worsening dyspnea. Due to severe respiratory distress, he required BiPAP upon arrival to the emergency department. On evaluation, the patient was found to be hypotensive and was started on norepinephrine drip (Levo). He also had elevated lactate levels (3.2) concerning for sepsis. Hemoglobin had trended down from 10.2 to 7.6 since his last admission, and he was noted to have ESRD secondary to autosomal dominant polycystic kidney disease. Chest X-ray revealed cardiomegaly and signs of heart failure. Creatinine was elevated at 5.13 with a GFR of 10.2. No fever, chills, or signs of infection reported at the time. The patient denied GI bleeding and had no black or bloody stools, nausea, or vomiting. The patient previously had a bloodstream infection with gram-positive cocci (Staphylococcus hemolyticus) in July 2024 and had since been monitored with negative surveillance cultures. CT of the abdomen revealed innumerable bilateral calcified cystic kidney masses, consistent with polycystic kidney disease. Patient is ICU status for sepsis workup and hemodynamic support. Blood cultures and ceftriaxone + azithromycin were initiated. A triple lumen central line was placed for vasopressor administration. He is also anemic, likely secondary to chronic disease, and received one unit of PRBCs. HD done 09/14/24 09/15/24: wbc is trending high, levophed 10 mcg, patient was wheezing, solumedrol once, breathing treatments PRN, ceftriaxone and AZT was changed to meropenem + doxycycline, HD today, continue vancomycin, patient is also having diarrhea 09/16/24: wbc is trending high, patient is having multiples diarrheas, vanco and doxycicline DC, metronidazole added, levophed off since 8 am, patient will need levophed for HD, labile BPs 09/17/24: wbc is trending down, his bowel movements are more solid today, ID continued doxycicline and add vanco PO, levophed is off, pending HD today Objective vital signs Vital Sign Date Time Temp Pulse Resp B/P (MAP) Pulse Ox O2 Delivery O2 Flow Rate FiO2 09/17/24 07:30 72 26 108/69 (82) 100 09/17/24 07:17 Nasal Cannula 2.0 09/17/24 07:17 28 09/17/24 04:00 96.8 96.8 Total Intake and Output 09/16/24 09/16/24 09/17/24 15:00 23:00 07:00 Intake Total 551 ml 1100 ml 580 ml Output Total 0 ml Balance 551 ml 1100 ml 580 ml medications Current Medications Medications Dose Ordered Sig/Cameron Route Start Time Stop Time Status Last Admin Dose Admin Heparin Sodium (Porcine) 5,000 units Q8H SC 09/13/24 14:00 Ondansetron HCl 4 mg Q4HP PRN IV 09/13/24 14:00 Nitroglycerin 0.4 mg Q5MINP PRN SL 09/13/24 14:00 Norepinephrine Bitartrate 16 mg/ Sodium Chloride 250 ml @ 1.875 mls/ hr Q24H IV 09/13/24 18:00 09/16/24 01:03 5.625 MLS/HR Acetaminophen/ Hydrocodone Bitart 1 tab Q6HP PRN PO 09/13/24 22:00 09/13/24 22:02 1 TAB Acetaminophen 650 mg Q6HP PRN PO 09/13/24 22:00 Midodrine 5 mg TID@0600,1200,1800 PO 09/15/24 06:00 09/17/24 05:28 5 MG Meropenem 50 ml @ 17 mls/hr Q12HR IV 09/15/24 22:00 09/16/24 22:42 17 MLS/HR Albuterol 2.5 mg Q8HR NEB 09/15/24 14:00 09/17/24 07:17 2.5 MG Ipratropium [place] 0.5 mg Q8HR NEB 09/15/24 08:45 09/17/24 07:17 0.5 MG Diagnostic Test (Pha) 1 strip Q6HR 09/15/24 12:00 09/17/24 06:27 1 STRIP Guaifenesin/ Dextromethorphan 10 ml Q4HP PRN PO 09/16/24 03:15 09/16/24 05:59 10 ML Metronidazole 100 ml @ 100 mls/hr Q8HR IV 09/16/24 09:15 09/17/24 05:28 100 MLS/HR Vancomycin HCl 125 mg QID PO 09/16/24 22:00 09/17/24 05:29 125 MG Doxycycline Hyclate 100 ml @ 50 mls/hr Q12H IV 09/16/24 20:45 09/17/24 08:46 50 MLS/HR Examination General: Alert,nasal canula Cardiovascular: regular rhythm, no mrmurs, no gallops Respiratory: Bilateral breath sounds, diminished at bases, no wheezes GI: Soft, tender in lower quadrant, no hepatosplenomegaly Extremities: No edema, PermCath in place Neuro: Alert, no focal deficits Skin: No rash, no signs of bleeding Rectal area with excoriations laboratory and microbiology Laboratory Tests 09/17/24 03:30 Test 09/17/24 03:30 Range/Units Serum Glucose 115 H 74-106 mg/dL Microbiology Date/Time Source Procedure Growth Status 09/15/24 08:00 Stool Clostridium difficile Toxin Assay - Final Complete 09/14/24 11:27 Nose MRSA Screen - Final Complete 09/13/24 14:12 Blood Blood Culture - Preliminary NO GROWTH AFTER 72 HOURS OF INCUBATION. Resulted Problem List/Assessment/Plan Problem List/Assessment/Plan Acute hypoxic respiratory failure likely secondary to fluid overload Septic shock, likely from unknown source (prior bacteremia with gram-positive cocci) Possible PNA gram+/gram - Possible gastroenteritis: diarrhea ESRD on hemodialysis (MWF), likely volume overloaded Acute on chronic anemia likely secondary to CKD Polycystic kidney disease History of CVA Hyperlipidemia Small bilateral pleural effusions and ascites Chronic Hep C infection ICU status Levophed off yesterday Patient will need levophed for HD: HD today Meropenem+ Metronidazole+ Doxycicline + Vancomycin PO Xray is more congestive: patient will have HD today ID consulted due to diarrheas: c diff neg, cultures negative HD Heparin 5000 ui TID No need of bipap for now Nephrology and Pulmonology on the case Midodrine Pending cultures Breathing treatments Patient doesnt produce urine wound care due to excoriations in rectal area Patient didnt tolerate rectal tube Case discussed with Dr Cunha Plan discussed with: Patient, Other (rn) My Orders My Orders Orders - CONNOR ALBERTS RESIDENT Procedure Category Date Status Time Metronidazole PHA 09/16/24 In Process 500mg/100ml (Flagyl 09:15 Psyllium Powder PHA 09/16/24 In Process (Metamucil Powder) 09:15 Dietary Evaluation Review Comments: 1. Nepro PO 19g Pro, 420kcal, BIDWM providing 38 gProtein 840kcal in two servings,if pt can drink both. 2. Consider Fam BID Fruit Punch flavor for promoting wound healing Expected Outcomes/Goals: Improved appetite, healed wounds, gradual wt gain. CC Plasma Assessment Blood Product Administration S: [id number] Date of Service: Sep 17, 2024 Billing Provider: SOFIYA CUNHA DO Common Visit Codes: [id number] CARE 30-74 MIN CONNOR ALBERTS RESIDENT Sep 17, 2024 09:14 SOFIYA CUNHA DO Sep 18, 2024 10:54
--- NOTE | 2024-09-17 11:05 | DVHPN2 ---
Progress Note Date Seen: Sep 17, 2024 Has the PT tested + for MRSA If YES, has PT been informed?: No Medical Necessity Reason Pt with a Central, PICC or Fol: No Subjective Patient reports: No new complaints (Patient's daughter bedside) Review of Systems: Deferred Objective vital signs Vital Sign Date Time Temp Pulse Resp B/P (MAP) Pulse Ox O2 Delivery O2 Flow Rate FiO2 09/17/24 10:30 70 09/17/24 10:30 22 97 Nasal Cannula* 2 28 09/17/24 09:15 111/72 (85) 09/17/24 08:00 97.5 97.5 Total Intake and Output 09/16/24 09/16/24 09/17/24 15:00 23:00 07:00 Intake Total 551 ml 1100 ml 580 ml Output Total 0 ml Balance 551 ml 1100 ml 580 ml medications Current Medications Medications Dose Ordered Sig/Cameron Route Start Time Stop Time Status Last Admin Dose Admin Heparin Sodium (Porcine) 5,000 units Q8H SC 09/13/24 14:00 Ondansetron HCl 4 mg Q4HP PRN IV 09/13/24 14:00 Nitroglycerin 0.4 mg Q5MINP PRN SL 09/13/24 14:00 Norepinephrine Bitartrate 16 mg/ Sodium Chloride 250 ml @ 1.875 mls/ hr Q24H IV 09/13/24 18:00 09/16/24 01:03 5.625 MLS/HR Acetaminophen/ Hydrocodone Bitart 1 tab Q6HP PRN PO 09/13/24 22:00 09/13/24 22:02 1 TAB Acetaminophen 650 mg Q6HP PRN PO 09/13/24 22:00 Midodrine 5 mg TID@0600,1200,1800 PO 09/15/24 06:00 09/17/24 10:55 5 MG Meropenem 50 ml @ 17 mls/hr Q12HR IV 09/15/24 22:00 09/17/24 10:55 17 MLS/HR Albuterol 2.5 mg Q8HR NEB 09/15/24 14:00 09/17/24 07:17 2.5 MG Ipratropium [place] 0.5 mg Q8HR NEB 09/15/24 08:45 09/17/24 07:17 0.5 MG Diagnostic Test (Pha) 1 strip Q6HR 09/15/24 12:00 09/17/24 06:27 1 STRIP Guaifenesin/ Dextromethorphan 10 ml Q4HP PRN PO 09/16/24 03:15 09/16/24 05:59 10 ML Metronidazole 100 ml @ 100 mls/hr Q8HR IV 09/16/24 09:15 09/17/24 05:28 100 MLS/HR Vancomycin HCl 125 mg QID PO 09/16/24 22:00 09/17/24 10:55 125 MG Doxycycline Hyclate 100 ml @ 50 mls/hr Q12H IV 09/16/24 20:45 09/17/24 08:46 50 MLS/HR Examination: GENERAL:Normal, LUNGS:Abnormal, MSK:Abnormal, NEURO:Normal laboratory and microbiology Laboratory Tests 09/17/24 03:30 Test 09/17/24 03:30 Range/Units Serum Glucose 115 H 74-106 mg/dL Microbiology Date/Time Source Procedure Growth Status 09/15/24 08:00 Stool Clostridium difficile Toxin Assay - Final Complete 09/14/24 11:27 Nose MRSA Screen - Final Complete 09/13/24 14:12 Blood Blood Culture - Preliminary NO GROWTH AFTER 72 HOURS OF INCUBATION. Resulted Problem List/Assessment/Plan Problem List/Assessment/Plan End-stage renal disease on hemodialysis Acute hypoxic respiratory failure septic Shock History of diastolic heart failure Anemia due to chronic kidney disease Recommendations HD Today ID evaluation Vasopressors as needed--off Levophed today Plan discussed with: Other My Orders My Orders Orders - CHADD ALVARADO MD Procedure Category Date Status Time * Infectious Jose Francisco- CONS 09/16/24 Transmitted [place] García 16:16 Hemodialysis Orders ORDERS 09/17/24 Transmitted 04:00 Dietary Evaluation Review Comments: 1. Nepro PO 19g Pro, 420kcal, BIDWM providing 38 gProtein 840kcal in two servings,if pt can drink both. 2. Consider Fam BID Fruit Punch flavor for promoting wound healing Expected Outcomes/Goals: Improved appetite, healed wounds, gradual wt gain. CC Plasma Assessment Blood Product Administration S: [id number] CHADD ALVARADO MD Sep 17, 2024 11:05
--- NOTE | 2024-09-17 12:14 | DVHPN2 ---
Consult Progress Note Date Seen: Sep 17, 2024 Objective vital signs Vital Sign Date Time Temp Pulse Resp B/P (MAP) Pulse Ox O2 Delivery O2 Flow Rate FiO2 09/17/24 10:30 70 09/17/24 10:30 22 97 Nasal Cannula* 2 28 09/17/24 09:15 111/72 (85) 09/17/24 08:00 97.5 97.5 Total Intake and Output 09/16/24 09/16/24 09/17/24 15:00 23:00 07:00 Intake Total 551 ml 1100 ml 580 ml Output Total 0 ml Balance 551 ml 1100 ml 580 ml medications Current Medications Medications Dose Ordered Sig/Cameron Route Start Time Stop Time Status Last Admin Dose Admin Heparin Sodium (Porcine) 5,000 units Q8H SC 09/13/24 14:00 Ondansetron HCl 4 mg Q4HP PRN IV 09/13/24 14:00 Nitroglycerin 0.4 mg Q5MINP PRN SL 09/13/24 14:00 Norepinephrine Bitartrate 16 mg/ Sodium Chloride 250 ml @ 1.875 mls/ hr Q24H IV 09/13/24 18:00 09/16/24 01:03 5.625 MLS/HR Acetaminophen/ Hydrocodone Bitart 1 tab Q6HP PRN PO 09/13/24 22:00 09/13/24 22:02 1 TAB Acetaminophen 650 mg Q6HP PRN PO 09/13/24 22:00 Midodrine 5 mg TID@0600,1200,1800 PO 09/15/24 06:00 09/17/24 10:55 5 MG Meropenem 50 ml @ 17 mls/hr Q12HR IV 09/15/24 22:00 09/17/24 10:55 17 MLS/HR Albuterol 2.5 mg Q8HR NEB 09/15/24 14:00 09/17/24 07:17 2.5 MG Ipratropium [place] 0.5 mg Q8HR NEB 09/15/24 08:45 09/17/24 07:17 0.5 MG Diagnostic Test (Pha) 1 strip Q6HR 09/15/24 12:00 09/17/24 11:10 1 STRIP Guaifenesin/ Dextromethorphan 10 ml Q4HP PRN PO 09/16/24 03:15 09/16/24 05:59 10 ML Metronidazole 100 ml @ 100 mls/hr Q8HR IV 09/16/24 09:15 09/17/24 05:28 100 MLS/HR Vancomycin HCl 125 mg QID PO 09/16/24 22:00 09/17/24 10:55 125 MG Doxycycline Hyclate 100 ml @ 50 mls/hr Q12H IV 09/16/24 20:45 09/17/24 08:46 50 MLS/HR laboratory and microbiology Laboratory Tests 09/17/24 03:30 Test 09/17/24 03:30 Range/Units Serum Glucose 115 H 74-106 mg/dL Problem List/Assessment/Plan Problem List/Assessment/Plan Bobby Gamez is a 59-year-old male who presents to ED with chief complaint of progressive dyspnea in functional class IV which started 3 days before his admission, associated with multiple episodes of diarrhea which started four days before his admission. During ER evaluation patient was found to have severe respiratory distress and hypotension, requiring BiPAP and IV vasopressors (norepinephrine). Patient has recent hospitalization secondary to community- acquired pneumonia secondary to Staphylococcus haemolyticus completing IV antibiotic treatment with vancomycin for two weeks (he also presented bacteremia to Staph hominis, considered contaminant). Patient reports end-stage renal disease and is on hemodialysis via a right tunneled hemodialysis catheter (which was recently exchanged on 07/2024), patient does have an AV fistula on right arm which thrills (only 1-month-old). 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 Hepatitis-C. Past surgical history: Placement of tunnel hemodialysis catheter, right AV fistula (has not been used yet, 2-month-old) Family history: Patient lives with daughter. Quit smoking 3 years ago (5 pack- year history of smoking). Denies current tobacco, alcohol and other drug abuse. Allergies: Codeine Home medication: Aspirin 81 mg p.o. daily, atorvastatin 40 mg p.o. daily, cinacalcet 60 mg p.o. daily, clopidogrel 75 mg p.o. daily, ferric citrate, hydrocodone, omeprazole 20 mg p.o. daily, sevelamer. Patient seen and examined at bedside. Patient currently has no new complaints. Presented only to bowel movements with formed stool on 09/17/2024. He is on ICU status due to intermittent requirement of IV vasopressors, currently with no requirement. Physical Exam Patient lying in bed, in no acute distress General: Lucid, afebrile, mucosae are moist Cardiovascular: Normal S1 and S2. No murmurs, gallops or rubs Respiratory: Regular ventilation mechanics, tachypneic. Bilateral rhonchus predominantly in bases, rest of lung auscultation is clear. Currently on nasal cannula 2 liters/minute. Abdomen: Soft, nontender, no organomegaly, normal bowel sounds. Abdominal wall pitting edema MSK/skin: Mobilizes 4 limbs. Skin is dry and warm. AV fistula on right arm with thrill, normal functioning. Has right subclavian tunneled hemodialysis catheter, no signs of infection. Neurological: Oriented in 3 spheres. No motor no sensitive deficits. Pupils are isocoric and reactive Assessment Septic shock secondary to community-acquired pneumonia Community-acquired pneumonia (previous sputum culture positive for Staphylococcus hemolyticus) Nonbloody diarrhea - rule out C diff ESRD secondary to autosomal dominant polycystic kidney disease on hemodialysis Saturday, Saturday and Saturday - under apixaban Chronic pain secondary to left clavicular fracture and left 4th and seven rib fracture after mechanical fall in patient with ESRD Hypertension Dyslipidemia History of multiple CVA - residual left-sided weakness - under apixaban Cataract with partial vision loss Positive Hepatitis-C antibody Plan/Recommendation Ordered sputum sample. Previous sputum was positive for Staphylococcus haemolyticus, completed course of IV antibiotics with vancomycin for two weeks post dialysis. Indicated empiric IV antibiotic (meropenem and doxycycline), recommend of course of seven days of both antibiotics. C diff toxin is negative. Have ordered [facility] antigen (is sent out), blood could not be completed. Started patient empirically on p.o. vancomycin and IV metronidazole, patient responded favorably. We will continue p.o. vancomycin for the treatment course of 10-15 days, we will evaluate to stop metronidazole on 09/18/2024 depending on amount of bowel movements. 09/13/2024 Blood cultures negative at the moment Hepatitis antibody is positive, per patient he never received treatment. Recommend obtaining viral load to evaluate requirement of treatment. Should follow as outpatient with Dr. García so as to obtain viral load (can not obtain viral load during hospitalization) Hemodialysis catheter on right subclavian does not press infected, was recently switched in July 2024. Currently patient is off IV vasopressors. Appreciate input of Nephrology and pulmonology specialist. Rest of management per primary team. Patient will have to follow with Dr. García as outpatient, for management of questionable C diff and hepatitis-C. Discussed plan with Dr. García, patient and nurses: Continue treatment for probable community-acquired pneumonia with doxycycline and meropenem. Have indicated empiric treatment for C diff with p.o. vancomycin and IV Flagyl. Patient currently off IV vasopressors. Ordered sputum culture, pending. Patient has poor prognosis Critical care time spent including discussion with nursing and patient: 76 minutes I personally verified the history, examined the patient with the student, and performed the medical decision-making. I agree with the documentation & plan of care - Celeste García MD Plan discussed with: Patient, Other (Nurses) Dietary Evaluation Review Comments: 1. Nepro PO 19g Pro, 420kcal, BIDWM providing 38 gProtein 840kcal in two servings,if pt can drink both. 2. Consider Fam BID Fruit Punch flavor for promoting wound healing Expected Outcomes/Goals: Improved appetite, healed wounds, gradual wt gain. CC Plasma Assessment Blood Product Administration S: [id number] LANA HOPKINS RESIDENT Sep 17, 2024 12:14 CELESTE GARCÍA MD Sep 26, 2024 17:51
--- NOTE | 2024-09-17 16:52 | DVHSR ---
APPROVED REPORT EXAM: Two-dimensional and M-mode echocardiogram with Doppler and color Doppler. Blood Pressure: 97/60 mmHg INDICATION Heart Failure RISK FACTORS Height: 6', Weight: 162 DIMENSIONS LVDd5.0 (3.8-5.7cm)LA (2D)4.5 (1.9-4.0cm)Aortic Root3.6 (2.0-3.7cm) LVDs3.8 (2.5-4.0cm)LA (MM) (1.9-4.0cm)Aortic Cusp Exc2.1 (1.5-2.0cm) EF (%) 46.0 (55-70%)Rt. Atrium3.0 (1.9-4.0cm)Asc. Aorta3.7 cm IVSd0.8 (0.7-1.1cm)RV (D)3.4 (1.8-2.4cm) PWd0.9 (0.7-1.1cm) Mitral Valve MitralMitral Stenosis E wave0.72m/sMV Mean GR.mmHg A wave1.07m/sMV Peak GR.mmHg E/A ratio0.72D MVAcm2 DECEL [id number] 1/2 Timems Aortic Valve Aortic ValveAortic Stenosis V11.07m/Gabby Mean GR.15mmHg V22.39m/Gabby Peak GR.24mmHg LVOT Diameter2.6 (1.8-2.4cm)Doppler AVA2.38cm2 2D AVA2.35cm2 AI P 1/2 Tqgc880.05ms Tricuspid Valve TR Velocity2.53m/s [id number] Other Information Quality : Technically LimitedRhythm : Technically limited study due to body habitus. Conclusion Technically good study. Undetermined rhythm. Biatrial enlargement. Mild LV enlargement. Aortic root enlargement. Right ventricular outflow trac t enlargement. Mild mitral annular calcification the aortic valve appears to be sclerotic. There is calcification o f the right and left coronary cusp. Adequate excursion noted without significant stenosis. The tric uspid and pulmonic appear to be structurally normal. Left ventricular systolic performance is diminished. EF is approximately 40-45% with global hypokine sis. There is dyssynchrony between the apical and septal segments due to a interventricular conducti on delay. There is trace mitral insufficiency mild tricuspid regurgitation. Moderate aortic insufficiency. Tr zeyad pulmonic insufficiency. No pericardial effusion masses or vegetations discernible.
--- NOTE | 2024-09-17 22:53 | DVHPN2 ---
Progress Note - Dictate Date Seen: Sep 17, 2024 Has the PT tested + for MRSA If YES, has PT been informed?: No Medical Necessity Reason Pt with a Central, PICC or Fol: No Subjective Patient seen and examined at bedside. Remains on supplemental oxygen Overnight events reviewed. vital signs Vital Sign Date Time Temp Pulse Resp B/P (MAP) Pulse Ox O2 Delivery O2 Flow Rate FiO2 09/17/24 22:00 78 20 99 09/17/24 21:48 Nasal Cannula 2.0 09/17/24 21:48 28 09/17/24 18:00 111/69 (83) 09/17/24 16:00 97.4 97.4 Total Intake and Output 09/16/24 09/16/24 09/17/24 15:00 23:00 07:00 Intake Total 551 ml 1100 ml 580 ml Output Total 0 ml Balance 551 ml 1100 ml 580 ml medications Current Medications Medications Dose Ordered Sig/Cameron Route Start Time Stop Time Status Last Admin Dose Admin Heparin Sodium (Porcine) 5,000 units Q8H SC 09/13/24 14:00 Ondansetron HCl 4 mg Q4HP PRN IV 09/13/24 14:00 Nitroglycerin 0.4 mg Q5MINP PRN SL 09/13/24 14:00 Norepinephrine Bitartrate 16 mg/ Sodium Chloride 250 ml @ 1.875 mls/ hr Q24H IV 09/13/24 18:00 09/16/24 01:03 5.625 MLS/HR Acetaminophen/ Hydrocodone Bitart 1 tab Q6HP PRN PO 09/13/24 22:00 09/17/24 14:16 1 TAB Acetaminophen 650 mg Q6HP PRN PO 09/13/24 22:00 Midodrine 5 mg TID@0600,1200,1800 PO 09/15/24 06:00 09/17/24 17:50 5 MG Meropenem 50 ml @ 17 mls/hr Q12HR IV 09/15/24 22:00 09/17/24 10:55 17 MLS/HR Albuterol 2.5 mg Q8HR NEB 09/15/24 14:00 09/17/24 21:46 2.5 MG Ipratropium [place] 0.5 mg Q8HR NEB 09/15/24 08:45 09/17/24 21:46 0.5 MG Diagnostic Test (Pha) 1 strip Q6HR 09/15/24 12:00 09/17/24 17:50 1 STRIP Guaifenesin/ Dextromethorphan 10 ml Q4HP PRN PO 09/16/24 03:15 09/17/24 14:16 10 ML Metronidazole 100 ml @ 100 mls/hr Q8HR IV 09/16/24 09:15 09/17/24 14:05 100 MLS/HR Vancomycin HCl 125 mg QID PO 09/16/24 22:00 09/17/24 21:42 125 MG Doxycycline Hyclate 100 ml @ 50 mls/hr Q12H IV 09/16/24 20:45 09/17/24 08:46 50 MLS/HR objective Gen.: Patient lying in bed in no apparent distress. On supplemental oxygen. Head: Normocephalic, atraumatic. Eyes: EOMI/PERRLA. Ears: Normal hearing. Normal anatomy. Neck/trachea: Trachea midline, supple. Nose: Normal external anatomy. Mouth: Moist mucous membranes. Chest: Decreased air entry bilaterally. No wheezing or rhonchi. Cardiovascular: Positive S1, positive S2. Regular rate and rhythm. Abdomen: Positive bowel sounds in all 4 quadrants. Soft, non-tender, non- distended. : Deferred. Rectal: Deferred. Skin: Warm, dry. Intact. Extremities: 2+ radial pulses bilaterally. No lower extremity edema. Neuro: Awake, alert, oriented x3. No gross motor or sensory deficits. Cranial nerves II through XII intact. Gait not assessed. laboratory and microbiology Laboratory Tests 09/17/24 03:30 Test 09/17/24 03:30 Range/Units Serum Glucose 115 H 74-106 mg/dL Assessment/Plan Impression: Acute hypoxic respiratory failure Dependence on supplemental oxygen Chronic obstructive pulmonary disease, stable Anemia Leukocytosis Thrombocytopenia Lactic acidosis End-stage renal disease, on hemodialysis Congestive heart failure Shock, septic Pneumonia, likely gram negative Ascites Small bilateral pleural effusions Hepatitis C Events: Remains on supplemental oxygen, 2 LPM NC Taper O2 as tolerated Off pressors since 8 AM on 09/16/24, hemodynamically stable. Patient undergoing hemodialysis - Plan to remove 3 L Nephrology recommendations appreciated Incentive spirometry Continue antibiotics WBC trending down at 21.1 ID recommendations appreciated Monitor hemodynamics Will monitor for BP instability during hemodialysis. If stable, patient may be downgraded post hemodialysis. Labs and imaging reviewed. Rest of plan as noted below. Plan: Supplemental oxygen Titrate to keep O2 sats above 92%. Pressors if necessary for hemodynamic support Titrate to keep mean arterial pressure greater than [address] abdomen and pelvis demonstrates innumerable bilateral calcified cystic masses seen throughout the kidneys. Small volume ascites. Small bilateral pleural effusions. S/p PICC line. Stool for C. diff negative. Wound care Monitor hemoglobin Transfuse if less than 7.0 g/dL Continue antibiotics Follow up cultures Incentive spirometry Monitor WBC Monitor platelets Monitor lactic acid Maintain euvolemia Monitor renal function. Monitor electrolytes. Supplement as necessary. Monitor ins and outs. HD per Nephrology Avoid volume overload GI/DVT prophylaxis. Prognosis: Poor given patient's multiple co-morbidities. Condition: Critical Rest of plan per hospitalist and other consultants. A total of 35 minutes of critical care time was spent reviewing the patient record, examining the patient, making a diagnostic and therapeutic plan, discussing this plan with the medical personnel, following up on diagnostic studies and following the patient for clinical stability excluding any and all procedures. At least 50% of this time was spent in direct, [id number] contact. Thank you, Dr. Pitts, for allowing me to participate in this patient's care. Further recommendations will depend on the patient's clinical course. Please do not hesitate to contact me if you have any questions or concerns. This medical document was created using an electronic medical record system with [employer] dictation system. Although these documentations are being carefully reviewed, there may still be some phonetic and typographical changes. The errors are purely typographical, due to imperfection on the software program, and do not reflect any compromise in the patient's medical care. Dietary Evaluation Review Comments: 1. Nepro PO 19g Pro, 420kcal, BIDWM providing 38 gProtein 840kcal in two servings,if pt can drink both. 2. Consider Fam BID Fruit Punch flavor for promoting wound healing Expected Outcomes/Goals: Improved appetite, healed wounds, gradual wt gain. Plan discussed with: Other (SUSANNAH Stevens) Critical Care Time(min): 35 CC Plasma Assessment Blood Product Administration S: [id number] TONG BLUNT MD Sep 17, 2024 22:53
[2024-09-18] VITALS (80 sets, daily range): BP systolic 92–143; BP diastolic 52–85; PULSE 70–83; RESP 15–35; TEMP 97.5–97.9; O2SAT 91–100
[2024-09-18 04:10] LABS: Basophils # (auto) 0.1 10 ^3/uL (0-0.2); Basophils % (auto) 0.4 % (0.0-2.0); Eosinophils # (auto) 0.1 10 ^3/uL (0-0.8); Eosinophils % (auto) 0.5 % (0.0-7.0); Hematocrit 29.2 % (41.0-53.0); Hemoglobin 9.1 g/dL (13.5-17.5); Lymphocytes # (auto) 1.7 10 ^3/uL (0.4-5.4); Lymphocytes % (auto) 13.7 % (10.0-50.0); Mean Corpuscular Hemoglobin 28.8 pg (28.0-32.0); Mean Corpuscular Hgb Conc. 31.2 g/dL (32.0-36.0); Mean Corpuscular Volume 92.3 fL (80.0-100.0); Monocytes # (auto) 0.7 10 ^3/uL (0-1.3); Neutrophils # (auto) 9.9 10 ^3/uL (1.6-8.6); Neutrophils % (auto) 79.4 % (37.0-80.0); Nucleated Red Blood Cells % 0.4 %; Platelet Count (auto) 66 10^3/uL (140-450); Red Blood Cells 3.17 10^6/uL (4.5-5.90); Red Cell Distribution Width 19.5 % (11.8-14.3); White Blood Cell 12.5 10^3/uL (4.4-10.8)
[2024-09-18 05:11] LABS: Alkaline Phosphatase 101 U/L (46-116); Anion Gap 7 (5-15); Aspartate Aminotransferase 24 U/L (13-40); BUN/Creatinine Ratio 7.2 (10.0-20.0); Carbon Dioxide 29 mmol/L (20-31); Chloride 104 mmol/L (98-107); Glucose 88 mg/dL (74-106); Sodium 140 mmol/L (136-145); Total Protein 5.7 g/dL (5.7-8.2)
[2024-09-18 05:12] LABS: Alanine Aminotransferase < 9 U/L (7-40); Albumin 2.2 g/dL (3.2-4.8); Bilirubin, Total 0.5 mg/dL (0.2-1.0); Blood Urea Nitrogen 25 mg/dL (9-23); Calcium 7.5 mg/dL (8.7-10.4); Potassium 3.2 mmol/L (3.5-5.1)
[2024-09-18 05:40] LABS: Magnesium 1.9 mg/dL (1.6-2.6)
[2024-09-18 05:45] LABS: Phosphorus 2.2 mg/dL (2.4-5.1)
[2024-09-18] MEDS: POTASSIUM EFFERVESENT TAB 25 MEQ PO ONE (08:09)
--- NOTE | 2024-09-18 15:18 | DVHPN2 ---
Progress Note Date Seen: Sep 18, 2024 Has the PT tested + for MRSA If YES, has PT been informed?: No Medical Necessity Reason Pt with a Central, PICC or Fol: No Subjective Patient reports: No new complaints, Feels better Review of Systems: Deferred Objective vital signs Vital Sign Date Time Temp Pulse Resp B/P (MAP) Pulse Ox O2 Delivery O2 Flow Rate FiO2 09/18/24 14:00 74 21 104/64 (77) 98 09/18/24 13:42 Nasal Cannula* 2 28 09/18/24 13:30 97.9 97.9 Total Intake and Output 09/17/24 09/17/24 09/18/24 15:00 23:00 07:00 Intake Total 250 ml 500 ml 600 ml Output Total 0 ml Balance 250 ml 500 ml 600 ml medications Current Medications Medications Dose Ordered Sig/Cameron Route Start Time Stop Time Status Last Admin Dose Admin Heparin Sodium (Porcine) 5,000 units Q8H SC 09/13/24 14:00 Ondansetron HCl 4 mg Q4HP PRN IV 09/13/24 14:00 Nitroglycerin 0.4 mg Q5MINP PRN SL 09/13/24 14:00 Norepinephrine Bitartrate 16 mg/ Sodium Chloride 250 ml @ 1.875 mls/ hr Q24H IV 09/13/24 18:00 09/16/24 01:03 5.625 MLS/HR Acetaminophen/ Hydrocodone Bitart 1 tab Q6HP PRN PO 09/13/24 22:00 09/17/24 14:16 1 TAB Acetaminophen 650 mg Q6HP PRN PO 09/13/24 22:00 Midodrine 5 mg TID@0600,1200,1800 PO 09/15/24 06:00 09/18/24 12:06 5 MG Meropenem 50 ml @ 17 mls/hr Q12HR IV 09/15/24 22:00 09/18/24 10:00 17 MLS/HR Albuterol 2.5 mg Q8HR NEB 09/15/24 14:00 09/18/24 06:43 2.5 MG Ipratropium [place] 0.5 mg Q8HR NEB 09/15/24 08:45 09/18/24 06:43 0.5 MG Diagnostic Test (Pha) 1 strip Q6HR 09/15/24 12:00 09/18/24 11:43 1 STRIP Guaifenesin/ Dextromethorphan 10 ml Q4HP PRN PO 09/16/24 03:15 09/17/24 14:16 10 ML Metronidazole 100 ml @ 100 mls/hr Q8HR IV 09/16/24 09:15 09/18/24 12:06 100 MLS/HR Vancomycin HCl 125 mg QID PO 09/16/24 22:00 09/18/24 12:06 125 MG Doxycycline Hyclate 100 ml @ 50 mls/hr Q12H IV 09/16/24 20:45 09/18/24 08:48 50 MLS/HR Enteral Nutritional Formula 28.8 gm BIDWM PO 09/18/24 18:00 Enteral Nutritional Formula 240 ml BIDWM PO 09/18/24 18:00 Examination: GENERAL:Normal, HEENT:Normal, NECK:Normal, LUNGS:Normal, CVS:Normal, ABDOMEN:Normal, MSK:Abnormal, SKIN:Normal, NEURO:Normal, :Normal laboratory and microbiology Laboratory Tests 09/18/24 03:30 Test 09/18/24 03:30 Range/Units Serum Glucose 88 74-106 mg/dL Microbiology Date/Time Source Procedure Growth Status 09/15/24 08:00 Stool Clostridium difficile Toxin Assay - Final Complete 09/14/24 11:27 Nose MRSA Screen - Final Complete 09/13/24 14:12 Blood Blood Culture - Final NO GROWTH AFTER 5 DAYS OF INCUBATION. Complete Problem List/Assessment/Plan Problem List/Assessment/Plan End-stage renal disease on hemodialysis via CVC Acute hypoxic respiratory failure s/p septic Shock History of diastolic heart failure Anemia due to chronic kidney disease Recommendations HD Tomorrow ID evaluation noted --patient's WBC downtrending--Abx per ID--renally dose abx to gfr --off Levophed today Plan discussed with: Patient My Orders My Orders Orders - CHADD ALVARADO MD Procedure Category Date Status Time Nutritional PHA 09/18/24 In Process Supplements (Fam 18:00 Nutritional PHA 09/18/24 In Process Supplements (Nepro 18:00 Renal DIET 09/18/24 Transmitted Standard(2gna,3gk,Lopho) Lunch Dietary Evaluation Review Comments: 1. Nepro PO 19g Pro, 420kcal, BIDWM providing 38 gProtein 840kcal in two servings,if pt can drink both. 2. Consider Fam BID Fruit Punch flavor for promoting wound healing Expected Outcomes/Goals: Improved appetite, healed wounds, gradual wt gain. CC Plasma Assessment Blood Product Administration S: [id number] CHADD ALVARADO MD Sep 18, 2024 15:18
--- NOTE | 2024-09-18 15:57 | DVHPN2 ---
Assessment/Plan Assessment/Plan ICU note 59 M with hx of CVA, ESRD MWF (ADPKD), HTN admitted for AHRF seen today during rounds, off levo, eating 10%, starting supplements, HD yesterday pulled 700cc. c/w midodrine physical exam aox3 clear breath sounds s1 s2 rrr abdomen soft nontender no sx of hepatic encep no LE edema R and L UE AVF R IJ permacath labs ekg imaging reviewed Acute hypoxic respiratory failure likely secondary to fluid overload Septic shock, likely from unknown source (prior bacteremia with gram-positive cocci) Possible PNA gram+/gram - Possible gastroenteritis: diarrhea ESRD on hemodialysis (MWF), likely volume overloaded Acute on chronic anemia likely secondary to CKD Polycystic kidney disease History of CVA Hyperlipidemia Small bilateral pleural effusions and ascites Chronic Hep C infection off levo 48 hours HD per nephro follow ID consult midodrine wound care transfer to telemetry condition critical prognosis poor full code dvt ppx heparin TID gi ppx not indicated diet renal + nepro critical care time 60 minutes Plan discussed with: Patient Date of Service: Sep 18, 2024 Billing Provider: RONNI TIPTON MD Common Visit Codes: [id number] CARE 30-74 MIN RONNI TIPTON MD Sep 18, 2024 15:57
[2024-09-18] MEDS: Juven Fruit Punch Powder PACKET 28.8gm PO SCH (18:00)
[2024-09-18] MEDS: Nepro With Carbsteady ButterPecan 8oz Carton PO SCH (18:00)
[2024-09-19] VITALS (83 sets, daily range): BP systolic 84–124; BP diastolic 55–83; PULSE 67–82; RESP 11–40; TEMP 96.7–97.7; O2SAT 79–100
[2024-09-19 03:41] LABS: Basophils # (auto) 0.2 10 ^3/uL (0-0.2); Basophils % (auto) 1.8 % (0.0-2.0); Eosinophils # (auto) 0.2 10 ^3/uL (0-0.8); Eosinophils % (auto) 1.9 % (0.0-7.0); Hematocrit 32.3 % (41.0-53.0); Hemoglobin 10.1 g/dL (13.5-17.5); Lymphocytes # (auto) 1.6 10 ^3/uL (0.4-5.4); Mean Corpuscular Hgb Conc. 31.3 g/dL (32.0-36.0); Mean Corpuscular Volume 92.6 fL (80.0-100.0); Monocytes # (auto) 0.7 10 ^3/uL (0-1.3); Monocytes % (auto) 6.7 % (0.0-12.0); Neutrophils # (auto) 8.1 10 ^3/uL (1.6-8.6); Neutrophils % (auto) 74.6 % (37.0-80.0); Nucleated Red Blood Cells % 0.6 %; Platelet Count (auto) 70 10^3/uL (140-450); Red Blood Cells 3.49 10^6/uL (4.5-5.90); Red Cell Distribution Width 19.8 % (11.8-14.3); White Blood Cell 10.8 10^3/uL (4.4-10.8)
[2024-09-19 04:09] LABS: Alkaline Phosphatase 99 U/L (46-116); Anion Gap 6 (5-15); Aspartate Aminotransferase 23 U/L (13-40); Carbon Dioxide 28 mmol/L (20-31); Chloride 104 mmol/L (98-107); Glucose 94 mg/dL (74-106); Potassium 3.9 mmol/L (3.5-5.1); Sodium 138 mmol/L (136-145)
[2024-09-19 04:10] LABS: Bilirubin, Total 0.6 mg/dL (0.2-1.0)
[2024-09-19 04:12] LABS: Alanine Aminotransferase < 9 U/L (7-40); Albumin 2.3 g/dL (3.2-4.8); Blood Urea Nitrogen 41 mg/dL (9-23); Calcium 7.9 mg/dL (8.7-10.4)
[2024-09-19] MEDS: PANTOPRAZOLE 40 MG/10 ML VIAL INJ IV SCH (08:02)
--- NOTE | 2024-09-19 09:19 | DVHPN2 ---
Progress Note - Dictate Date Seen: Sep 18, 2024 Has the PT tested + for MRSA If YES, has PT been informed?: No Medical Necessity Reason Pt with a Central, PICC or Fol: No Subjective Patient seen and examined at bedside. Remains on supplemental oxygen Overnight events reviewed. vital signs Vital Sign Date Time Temp Pulse Resp B/P (MAP) Pulse Ox O2 Delivery O2 Flow Rate FiO2 09/19/24 09:00 69 18 104/64 (77) 96 09/19/24 08:13 Nasal Cannula* 2 28 09/19/24 08:01 97.1 97.1 Total Intake and Output 09/18/24 09/18/24 09/19/24 15:00 23:00 07:00 Intake Total 250 ml 517 ml 384 ml Balance 250 ml 517 ml 384 ml medications Current Medications Medications Dose Ordered Sig/Cameron Route Start Time Stop Time Status Last Admin Dose Admin Heparin Sodium (Porcine) 5,000 units Q8H SC 09/13/24 14:00 Ondansetron HCl 4 mg Q4HP PRN IV 09/13/24 14:00 Nitroglycerin 0.4 mg Q5MINP PRN SL 09/13/24 14:00 Norepinephrine Bitartrate 16 mg/ Sodium Chloride 250 ml @ 1.875 mls/ hr Q24H IV 09/13/24 18:00 09/16/24 01:03 5.625 MLS/HR Acetaminophen/ Hydrocodone Bitart 1 tab Q6HP PRN PO 09/13/24 22:00 09/17/24 14:16 1 TAB Acetaminophen 650 mg Q6HP PRN PO 09/13/24 22:00 Midodrine 5 mg TID@0600,1200,1800 PO 09/15/24 06:00 09/19/24 05:08 5 MG Meropenem 50 ml @ 17 mls/hr Q12HR IV 09/15/24 22:00 09/19/24 08:03 17 MLS/HR Albuterol 2.5 mg Q8HR NEB 09/15/24 14:00 09/19/24 06:48 2.5 MG Ipratropium [place] 0.5 mg Q8HR NEB 09/15/24 08:45 09/19/24 06:48 0.5 MG Diagnostic Test (Pha) 1 strip Q6HR 09/15/24 12:00 09/19/24 05:09 1 STRIP Guaifenesin/ Dextromethorphan 10 ml Q4HP PRN PO 09/16/24 03:15 09/18/24 19:49 10 ML Metronidazole 100 ml @ 100 mls/hr Q8HR IV 09/16/24 09:15 09/19/24 05:09 100 MLS/HR Vancomycin HCl 125 mg QID PO 09/16/24 22:00 09/19/24 05:08 125 MG Doxycycline Hyclate 100 ml @ 50 mls/hr Q12H IV 09/16/24 20:45 09/19/24 08:39 50 MLS/HR Enteral Nutritional Formula 28.8 gm BIDWM PO 09/18/24 18:00 09/19/24 08:03 28.8 GM Enteral Nutritional Formula 240 ml BIDWM PO 09/18/24 18:00 Pantoprazole Sodium 40 mg BID IV 09/19/24 10:00 09/19/24 08:02 40 MG Sucralfate 1 gm BID@0600,2200 PO 09/19/24 22:00 objective Gen.: Patient lying in bed in no apparent distress. On supplemental oxygen. Head: Normocephalic, atraumatic. Eyes: EOMI/PERRLA. Ears: Normal hearing. Normal anatomy. Neck/trachea: Trachea midline, supple. Nose: Normal external anatomy. Mouth: Moist mucous membranes. Chest: Decreased air entry bilaterally. No wheezing or rhonchi. Cardiovascular: Positive S1, positive S2. Regular rate and rhythm. Abdomen: Positive bowel sounds in all 4 quadrants. Soft, non-tender, non- distended. : Deferred. Rectal: Deferred. Skin: Warm, dry. Intact. Extremities: 2+ radial pulses bilaterally. No lower extremity edema. Neuro: Awake, alert, oriented x3. No gross motor or sensory deficits. Cranial nerves II through XII intact. Gait not assessed. laboratory and microbiology Laboratory Tests 09/19/24 03:16 Test 09/19/24 03:16 Range/Units Serum Glucose 94 74-106 mg/dL Assessment/Plan Impression: Acute hypoxic respiratory failure Dependence on supplemental oxygen Chronic obstructive pulmonary disease, stable Anemia Leukocytosis Thrombocytopenia Lactic acidosis End-stage renal disease, on hemodialysis Congestive heart failure Shock, septic Pneumonia, likely gram negative Ascites Small bilateral pleural effusions Hepatitis C Events: Remains on supplemental oxygen, 2 LPM NC Taper O2 as tolerated Off pressors since 8 AM on 09/16/24, hemodynamically stable. Downgraded to tele. Patient tolerating hemodialysis well Nephrology recommendations appreciated Incentive spirometry Continue antibiotics WBC trending down at 12.5 ID recommendations appreciated Monitor hemodynamics during HD. Labs and imaging reviewed. Rest of plan as noted below. Plan: Supplemental oxygen Titrate to keep O2 sats above 92%. Pressors if necessary for hemodynamic support Titrate to keep mean arterial pressure greater than 65 mmHg. S/p PICC line. Stool for C. diff negative. Wound care Monitor hemoglobin Transfuse if less than 7.0 g/dL Continue antibiotics Follow up cultures Incentive spirometry Monitor WBC Monitor platelets Monitor lactic acid Maintain euvolemia Monitor renal function. Monitor electrolytes. Supplement as necessary. Monitor ins and outs. HD per Nephrology Avoid volume overload GI/DVT prophylaxis. Prognosis: Poor given patient's multiple co-morbidities. Condition: Critical Rest of plan per hospitalist and other consultants. A total of 35 minutes of critical care time was spent reviewing the patient record, examining the patient, making a diagnostic and therapeutic plan, discussing this plan with the medical personnel, following up on diagnostic studies and following the patient for clinical stability excluding any and all procedures. At least 50% of this time was spent in direct, [id number] contact. Thank you, Dr. Pitts, for allowing me to participate in this patient's care. Further recommendations will depend on the patient's clinical course. Please do not hesitate to contact me if you have any questions or concerns. This medical document was created using an electronic medical record system with [employer] computerized dictation system. Although these documentations are being carefully reviewed, there may still be some phonetic and typographical changes. The errors are purely typographical, due to imperfection on the software program, and do not reflect any compromise in the patient's medical care. Dietary Evaluation Review Comments: 1. Nepro PO 19g Pro, 420kcal, BIDWM providing 38 gProtein 840kcal in two servings,if pt can drink both. 2. Consider Fam BID Fruit Punch flavor for promoting wound healing Expected Outcomes/Goals: Improved appetite, healed wounds, gradual wt gain. Plan discussed with: Patient, Other (SUSANNAH Shaikh) CC Plasma Assessment Blood Product Administration S: [id number] TONG BLUNT MD Sep 19, 2024 09:19
--- NOTE | 2024-09-19 10:40 | DVHPN2 ---
Assessment/Plan Assessment/Plan ICU note 59 M with hx of CVA, ESRD MWF (ADPKD), HTN admitted for AHRF seen today during rounds, HD today, soft BP but not hypotensive. stable to transfer to floors, multiple loose stool physical exam aox3 clear breath sounds s1 s2 rrr abdomen soft nontender no sx of hepatic encep no LE edema R and L UE AVF R IJ permacath labs ekg imaging reviewed Acute hypoxic respiratory failure likely secondary to fluid overload Septic shock, likely from unknown source (prior bacteremia with gram-positive cocci) Possible PNA gram+/gram - Possible gastroenteritis: diarrhea ESRD on hemodialysis (MWF), likely volume overloaded Acute on chronic anemia likely secondary to CKD Polycystic kidney disease History of CVA Hyperlipidemia Small bilateral pleural effusions and ascites Chronic Hep C infection off levo 48 hours HD per nephro follow ID consult midodrine wound care transfer to telemetry add florastor condition critical prognosis poor full code dvt ppx heparin TID gi ppx not indicated diet renal + nepro critical care time 50 minutes Plan discussed with: Patient My Orders Orders - RONNI TIPTON MD Procedure Category Date Status Time Transfer Orders XFER 09/18/24 Transmitted 15:57 Pt Request For Service PT 09/18/24 Logged 15:58 Date of Service: Sep 19, 2024 Billing Provider: RONNI TIPTON MD Common Visit Codes: [id number] INP/OBS CARE(HIGH) RONNI TIPTON MD Sep 19, 2024 10:40
[2024-09-19] MEDS: FLORASTOR (S. BOULARDII) 250 MG CAP PO SCH (12:02)
--- NOTE | 2024-09-19 16:13 | DVHPN2 ---
Progress Note Date Seen: Sep 19, 2024 Has the PT tested + for MRSA If YES, has PT been informed?: No Medical Necessity Reason Pt with a Central, PICC or Fol: No Subjective Patient reports: Other (Complaints of diarrhea) Objective vital signs Vital Sign Date Time Temp Pulse Resp B/P (MAP) Pulse Ox O2 Delivery O2 Flow Rate FiO2 09/19/24 16:04 22 98 Nasal Cannula* 2 28 09/19/24 16:00 97.4 74 94/61 (72) 97.4 Total Intake and Output 09/18/24 09/18/24 09/19/24 15:00 23:00 07:00 Intake Total 250 ml 517 ml 384 ml Balance 250 ml 517 ml 384 ml medications Current Medications Medications Dose Ordered Sig/Cameron Route Start Time Stop Time Status Last Admin Dose Admin Heparin Sodium (Porcine) 5,000 units Q8H SC 09/13/24 14:00 Ondansetron HCl 4 mg Q4HP PRN IV 09/13/24 14:00 Nitroglycerin 0.4 mg Q5MINP PRN SL 09/13/24 14:00 Norepinephrine Bitartrate 16 mg/ Sodium Chloride 250 ml @ 1.875 mls/ hr Q24H IV 09/13/24 18:00 09/16/24 01:03 5.625 MLS/HR Acetaminophen/ Hydrocodone [place] 1 tab Q6HP PRN PO 09/13/24 22:00 09/17/24 14:16 1 TAB Acetaminophen 650 mg Q6HP PRN PO 09/13/24 22:00 Midodrine 5 mg TID@0600,1200,1800 PO 09/15/24 06:00 09/19/24 12:02 5 MG Meropenem 50 ml @ 17 mls/hr Q12HR IV 09/15/24 22:00 09/19/24 08:03 17 MLS/HR Albuterol 2.5 mg Q8HR NEB 09/15/24 14:00 09/19/24 14:17 2.5 MG Ipratropium [place] 0.5 mg Q8HR NEB 09/15/24 08:45 09/19/24 14:17 0.5 MG Diagnostic Test (Pha) 1 strip Q6HR 09/15/24 12:00 09/19/24 12:02 1 STRIP Guaifenesin/ Dextromethorphan 10 ml Q4HP PRN PO 09/16/24 03:15 09/19/24 13:58 10 ML Metronidazole 100 ml @ 100 mls/hr Q8HR IV 09/16/24 09:15 09/19/24 12:02 100 MLS/HR Vancomycin HCl 125 mg QID PO 09/16/24 22:00 09/19/24 12:02 125 MG Doxycycline Hyclate 100 ml @ 50 mls/hr Q12H IV 09/16/24 20:45 09/19/24 08:39 50 MLS/HR Enteral Nutritional Formula 28.8 gm BIDWM PO 09/18/24 18:00 09/19/24 08:03 28.8 GM Enteral Nutritional Formula 240 ml BIDWM PO 09/18/24 18:00 Pantoprazole Sodium 40 mg BID IV 09/19/24 10:00 09/19/24 08:02 40 MG Sucralfate 1 gm BID@0600,2200 PO 09/19/24 22:00 Saccharomyces Boulardii 250 mg DAILY PO 09/19/24 11:10 09/19/24 12:02 250 MG Examination: GENERAL:Normal, HEENT:Normal, NECK:Normal, LUNGS:Normal, CVS:Normal, ABDOMEN:Normal, MSK:Abnormal, SKIN:Normal, NEURO:Normal, :Normal laboratory and microbiology Laboratory Tests 09/19/24 03:16 Test 09/19/24 03:16 Range/Units Serum Glucose 94 74-106 mg/dL Microbiology Date/Time Source Procedure Growth Status 09/15/24 08:00 Stool Clostridium difficile Toxin Assay - Final Complete 09/14/24 11:27 Nose MRSA Screen - Final Complete 09/13/24 14:12 Blood Blood Culture - Final NO GROWTH AFTER 5 DAYS OF INCUBATION. Complete Problem List/Assessment/Plan Problem List/Assessment/Plan End-stage renal disease on hemodialysis via CVC Acute hypoxic respiratory failure s/p septic Shock History of diastolic heart failure Anemia due to chronic kidney disease Recommendations Seen on HD today UF 1.3 L Next HD will be Saturday ID evaluation noted --patient's WBC downtrending--Abx per ID--renally dose abx to gfr --off Levophed today Plan discussed with: Patient, Other My Orders My Orders Orders - CHADD ALVARADO MD Procedure Category Date Status Time Hemodialysis Orders ORDERS 09/19/24 Transmitted 09:15 Dietary Evaluation Review Comments: 1. Nepro PO 19g Pro, 420kcal, BIDWM providing 38 gProtein 840kcal in two servings,if pt can drink both. 2. Consider Fam BID Fruit Punch flavor for promoting wound healing Expected Outcomes/Goals: Improved appetite, healed wounds, gradual wt gain. CC Plasma Assessment Blood Product Administration S: [id number] CHADD ALVARADO MD Sep 19, 2024 16:13
--- NOTE | 2024-09-19 19:30 | DVHPN2 ---
Progress Note - Dictate Date Seen: Sep 19, 2024 Has the PT tested + for MRSA If YES, has PT been informed?: No Medical Necessity Reason Pt with a Central, PICC or Fol: No Subjective Patient seen and examined at bedside. Remains on supplemental oxygen Overnight events reviewed. vital signs Vital Sign Date Time Temp Pulse Resp B/P (MAP) Pulse Ox O2 Delivery O2 Flow Rate FiO2 09/19/24 18:45 81 26 100/64 (76) 97 09/19/24 18:09 Nasal Cannula* 2 28 09/19/24 16:00 97.4 97.4 Total Intake and Output 09/18/24 09/18/24 09/19/24 15:00 23:00 07:00 Intake Total 250 ml 517 ml 384 ml Balance 250 ml 517 ml 384 ml medications Current Medications Medications Dose Ordered Sig/Cameron Route Start Time Stop Time Status Last Admin Dose Admin Heparin Sodium (Porcine) 5,000 units Q8H SC 09/13/24 14:00 Ondansetron HCl 4 mg Q4HP PRN IV 09/13/24 14:00 Nitroglycerin 0.4 mg Q5MINP PRN SL 09/13/24 14:00 Norepinephrine Bitartrate 16 mg/ Sodium Chloride 250 ml @ 1.875 mls/ hr Q24H IV 09/13/24 18:00 09/16/24 01:03 5.625 MLS/HR Acetaminophen/ Hydrocodone Bitart 1 tab Q6HP PRN PO 09/13/24 22:00 09/17/24 14:16 1 TAB Acetaminophen 650 mg Q6HP PRN PO 09/13/24 22:00 Midodrine 5 mg TID@0600,1200,1800 PO 09/15/24 06:00 09/19/24 17:48 5 MG Meropenem 50 ml @ 17 mls/hr Q12HR IV 09/15/24 22:00 09/19/24 08:03 17 MLS/HR Albuterol 2.5 mg Q8HR NEB 09/15/24 14:00 09/19/24 14:17 2.5 MG Ipratropium [place] 0.5 mg Q8HR NEB 09/15/24 08:45 09/19/24 14:17 0.5 MG Diagnostic Test (Pha) 1 strip Q6HR 09/15/24 12:00 09/19/24 17:48 1 STRIP Guaifenesin/ Dextromethorphan 10 ml Q4HP PRN PO 09/16/24 03:15 09/19/24 13:58 10 ML Metronidazole 100 ml @ 100 mls/hr Q8HR IV 09/16/24 09:15 09/19/24 12:02 100 MLS/HR Vancomycin HCl 125 mg QID PO 09/16/24 22:00 09/19/24 17:48 125 MG Doxycycline Hyclate 100 ml @ 50 mls/hr Q12H IV 09/16/24 20:45 09/19/24 08:39 50 MLS/HR Enteral Nutritional Formula 28.8 gm BIDWM PO 09/18/24 18:00 09/19/24 18:00 28.8 GM Enteral Nutritional Formula 240 ml BIDWM PO 09/18/24 18:00 09/19/24 18:00 240 ML Pantoprazole Sodium 40 mg BID IV 09/19/24 10:00 09/19/24 08:02 40 MG Sucralfate 1 gm BID@0600,2200 PO 09/19/24 22:00 Saccharomyces Boulardii 250 mg DAILY PO 09/19/24 11:10 09/19/24 12:02 250 MG objective Gen.: Patient lying in bed in no apparent distress. On supplemental oxygen. Head: Normocephalic, atraumatic. Eyes: EOMI/PERRLA. Ears: Normal hearing. Normal anatomy. Neck/trachea: Trachea midline, supple. Nose: Normal external anatomy. Mouth: Moist mucous membranes. Chest: Decreased air entry bilaterally. No wheezing or rhonchi. Cardiovascular: Positive S1, positive S2. Regular rate and rhythm. Abdomen: Positive bowel sounds in all 4 quadrants. Soft, non-tender, non- distended. : Deferred. Rectal: Deferred. Skin: Warm, dry. Intact. Extremities: 2+ radial pulses bilaterally. No lower extremity edema. Neuro: Awake, alert, oriented x3. No gross motor or sensory deficits. Cranial nerves II through XII intact. Gait not assessed. laboratory and microbiology Laboratory Tests 09/19/24 03:16 Test 09/19/24 03:16 Range/Units Serum Glucose 94 74-106 mg/dL Assessment/Plan Impression: Acute hypoxic respiratory failure Dependence on supplemental oxygen Chronic obstructive pulmonary disease, stable Anemia Leukocytosis Thrombocytopenia Lactic acidosis End-stage renal disease, on hemodialysis Congestive heart failure Shock, septic Pneumonia, likely gram negative Ascites Small bilateral pleural effusions Hepatitis C Events: Remains on supplemental oxygen, 2 LPM NC Taper O2 as tolerated Off pressors since 8 AM on 09/16/24, hemodynamically stable. Downgraded to tele. Patient tolerating hemodialysis - HD in progress Nephrology recommendations appreciated Incentive spirometry Continue antibiotics WBC within normal limits ID recommendations appreciated Monitor hemodynamics during HD. Labs and imaging reviewed. Rest of plan as noted below. Plan: Supplemental oxygen Titrate to keep O2 sats above 92%. Pressors if necessary for hemodynamic support Titrate to keep mean arterial pressure greater than 65 mmHg. S/p PICC line. Stool for C. diff negative. Wound care Monitor hemoglobin Transfuse if less than 7.0 g/dL Continue antibiotics Follow up cultures Incentive spirometry Monitor WBC Monitor platelets Monitor lactic acid Maintain euvolemia Monitor renal function. Monitor electrolytes. Supplement as necessary. Monitor ins and outs. HD per Nephrology Avoid volume overload GI/DVT prophylaxis. Prognosis: Poor given patient's multiple co-morbidities. Rest of plan per hospitalist and other consultants. Thank you, Dr. Pitts, for allowing me to participate in this patient's care. Further recommendations will depend on the patient's clinical course. Please do not hesitate to contact me if you have any questions or concerns. This medical document was created using an electronic medical record system with [employer] dictation system. Although these documentations are being carefully reviewed, there may still be some phonetic and typographical changes. The errors are purely typographical, due to imperfection on the software program, and do not reflect any compromise in the patient's medical care. Dietary Evaluation Review Comments: 1. Nepro PO 19g Pro, 420kcal, BIDWM providing 38 gProtein 840kcal in two servings,if pt can drink both. 2. Consider Fam BID Fruit Punch flavor for promoting wound healing Expected Outcomes/Goals: Improved appetite, healed wounds, gradual wt gain. Plan discussed with: Patient, Other (SUSANNAH Shaikh) CC Plasma Assessment Blood Product Administration S: [id number] TONG BLUNT MD Sep 19, 2024 19:30
[2024-09-19] MEDS: SUCRALFATE 1 GM/10 ML ORAL SUSP PO SCH (21:47)
[2024-09-20] VITALS (28 sets, daily range): BP systolic 103–131; BP diastolic 65–82; PULSE 65–81; RESP 16–33; TEMP 97.1–98; O2SAT 95–100
[2024-09-20 03:53] LABS: Basophils # (auto) 0 10 ^3/uL (0-0.2); Lymphocytes % (auto) 20.3 % (10.0-50.0)
[2024-09-20 03:56] LABS: Basophils % (auto) 0.4 % (0.0-2.0); Eosinophils # (auto) 0.3 10 ^3/uL (0-0.8); Eosinophils % (auto) 3.4 % (0.0-7.0); Hematocrit 27.7 % (41.0-53.0); Lymphocytes # (auto) 1.9 10 ^3/uL (0.4-5.4); Mean Corpuscular Hemoglobin 30.3 pg (28.0-32.0); Mean Corpuscular Hgb Conc. 32.6 g/dL (32.0-36.0); Mean Corpuscular Volume 92.7 fL (80.0-100.0); Monocytes % (auto) 10.1 % (0.0-12.0); Neutrophils # (auto) 6.2 10 ^3/uL (1.6-8.6); Neutrophils % (auto) 65.8 % (37.0-80.0); Nucleated Red Blood Cells % 0.5 %; Platelet Count (auto) 64 10^3/uL (140-450); Red Blood Cells 2.98 10^6/uL (4.5-5.90); Red Cell Distribution Width 19.4 % (11.8-14.3); White Blood Cell 9.4 10^3/uL (4.4-10.8)
[2024-09-20 04:04] LABS: Anion Gap 9 (5-15); Carbon Dioxide 28 mmol/L (20-31); Chloride 100 mmol/L (98-107); Potassium 3.7 mmol/L (3.5-5.1); Sodium 137 mmol/L (136-145)
[2024-09-20 04:10] LABS: BUN/Creatinine Ratio 9.6 (10.0-20.0); Glucose 87 mg/dL (74-106)
[2024-09-20 04:11] LABS: Magnesium 1.8 mg/dL (1.6-2.6)
[2024-09-20 04:12] LABS: Phosphorus 3.9 mg/dL (2.4-5.1)
[2024-09-20 04:16] LABS: Blood Urea Nitrogen 38 mg/dL (9-23); Calcium 7.8 mg/dL (8.7-10.4)
--- NOTE | 2024-09-20 10:46 | DVHPN2 ---
Assessment/Plan Assessment/Plan ICU note 59 M with hx of CVA, ESRD MWF (ADPKD), HTN admitted for AHRF seen today during rounds, transfered to floors, no complaints, imroving physical exam aox3 clear breath sounds s1 s2 rrr abdomen soft nontender no sx of hepatic encep no LE edema R and L UE AVF R IJ permacath labs ekg imaging reviewed Acute hypoxic respiratory failure likely secondary to fluid overload Septic shock, likely from unknown source (prior bacteremia with gram-positive cocci) Possible PNA gram+/gram - Possible gastroenteritis: diarrhea ESRD on hemodialysis (MWF), likely volume overloaded Acute on chronic anemia likely secondary to CKD Polycystic kidney disease History of CVA Hyperlipidemia Small bilateral pleural effusions and ascites Chronic Hep C infection thrombocytosis off levo 48 hours HD per nephro follow ID consult midodrine wound care transfer to telemetry add florastor dc heparin condition critical prognosis poor dc TLC midline full code dvt ppx hold gi ppx not indicated diet renal + nepro Plan discussed with: Patient Date of Service: Sep 20, 2024 Billing Provider: RONNI TIPTON MD Common Visit Codes: 86661-[id number] INP/OBS CARE(HIGH) RONNI TIPTON MD Sep 20, 2024 10:46
--- NOTE | 2024-09-20 15:52 | DVHPN2 ---
Progress Note Date Seen: Sep 20, 2024 Has the PT tested + for MRSA If YES, has PT been informed?: No Medical Necessity Reason Pt with a Central, PICC or Fol: No Subjective Patient reports: No new complaints Review of Systems: GI:Abnormal Objective vital signs Vital Sign Date Time Temp Pulse Resp B/P (MAP) Pulse Ox O2 Delivery O2 Flow Rate FiO2 09/20/24 12:30 97.2 65 16 128/76 (93) 99 97.2 09/20/24 10:00 Nasal Cannula 1.0 09/20/24 10:00 24 Total Intake and Output 09/19/24 09/19/24 09/20/24 15:00 23:00 07:00 Intake Total 250 ml 634 ml 250 ml Balance 250 ml 634 ml 250 ml medications Current Medications Medications Dose Ordered Sig/Cameron Route Start Time Stop Time Status Last Admin Dose Admin Ondansetron HCl 4 mg Q4HP PRN IV 09/13/24 14:00 Nitroglycerin 0.4 mg Q5MINP PRN SL 09/13/24 14:00 Acetaminophen/ Hydrocodone Bitart 1 tab Q6HP PRN PO 09/13/24 22:00 09/19/24 22:08 1 TAB Acetaminophen 650 mg Q6HP PRN PO 09/13/24 22:00 Midodrine 5 mg TID@0600,1200,1800 PO 09/15/24 06:00 09/20/24 12:12 5 MG Meropenem 50 ml @ 17 mls/hr Q12HR IV 09/15/24 22:00 09/20/24 10:00 17 MLS/HR Albuterol 2.5 mg Q8HR NEB 09/15/24 14:00 09/19/24 21:55 2.5 MG Ipratropium [place] 0.5 mg Q8HR NEB 09/15/24 08:45 09/19/24 21:55 0.5 MG Diagnostic Test (Pha) 1 strip Q6HR 09/15/24 12:00 09/20/24 12:13 1 STRIP Guaifenesin/ Dextromethorphan 10 ml Q4HP PRN PO 09/16/24 03:15 09/19/24 19:49 10 ML Metronidazole 100 ml @ 100 mls/hr Q8HR IV 09/16/24 09:15 09/20/24 05:31 100 MLS/HR Vancomycin HCl 125 mg QID PO 09/16/24 22:00 09/20/24 12:12 125 MG Doxycycline Hyclate 100 ml @ 50 mls/hr Q12H IV 09/16/24 20:45 09/20/24 09:22 50 MLS/HR Enteral Nutritional Formula 28.8 gm BIDWM PO 09/18/24 18:00 09/20/24 09:02 28.8 GM Enteral Nutritional Formula 240 ml BIDWM PO 09/18/24 18:00 09/19/24 18:00 240 ML Pantoprazole Sodium 40 mg BID IV 09/19/24 10:00 09/20/24 09:21 40 MG Sucralfate 1 gm BID@0600,2200 PO 09/19/24 22:00 09/20/24 05:31 1 GM Saccharomyces Boulardii 250 mg DAILY PO 09/19/24 11:10 09/20/24 09:21 250 MG laboratory and microbiology Laboratory Tests 09/20/24 03:23 Test 09/20/24 03:23 Range/Units Serum Glucose 87 74-106 mg/dL Microbiology Date/Time Source Procedure Growth Status 09/15/24 08:00 Stool Clostridium difficile Toxin Assay - Final Complete 09/14/24 11:27 Nose MRSA Screen - Final Complete 09/13/24 14:12 Blood Blood Culture - Final NO GROWTH AFTER 5 DAYS OF INCUBATION. Complete Problem List/Assessment/Plan Problem List/Assessment/Plan End-stage renal disease on hemodialysis via CVC Acute hypoxic respiratory failure s/p septic Shock History of diastolic heart failure Anemia due to chronic kidney disease Recommendations Next HD will be Saturday ID evaluation noted --patient's WBC downtrending--Abx per ID--renally dose abx to gfr --off Levophed downgraded Plan discussed with: Patient Dietary Evaluation Review Comments: 1. Nepro PO 19g Pro, 420kcal, BIDWM providing 38 gProtein 840kcal in two servings,if pt can drink both. 2. Consider Fam BID Fruit Punch flavor for promoting wound healing Expected Outcomes/Goals: Improved appetite, healed wounds, gradual wt gain. CC Plasma Assessment Blood Product Administration S: [id number] CHADD ALVARADO MD Sep 20, 2024 15:52
--- NOTE | 2024-09-20 18:55 | DVHPN2 ---
Progress Note - Dictate Date Seen: Sep 20, 2024 Has the PT tested + for MRSA If YES, has PT been informed?: No Medical Necessity Reason Pt with a Central, PICC or Fol: No Subjective Patient seen and examined at bedside. Remains on supplemental oxygen Overnight events reviewed. vital signs Vital Sign Date Time Temp Pulse Resp B/P (MAP) Pulse Ox O2 Delivery O2 Flow Rate FiO2 09/20/24 18:40 72 18 100 09/20/24 18:34 Nasal Cannula* 2 28 09/20/24 16:54 97.2 131/82 (98) 97.2 Total Intake and Output 09/19/24 09/19/24 09/20/24 14:59 22:59 06:59 Intake Total 250 ml 467 ml 417 ml Balance 250 ml 467 ml 417 ml medications Current Medications Medications Dose Ordered Sig/Cameron Route Start Time Stop Time Status Last Admin Dose Admin Ondansetron HCl 4 mg Q4HP PRN IV 09/13/24 14:00 Nitroglycerin 0.4 mg Q5MINP PRN SL 09/13/24 14:00 Acetaminophen/ Hydrocodone Bitart 1 tab Q6HP PRN PO 09/13/24 22:00 09/19/24 22:08 1 TAB Acetaminophen 650 mg Q6HP PRN PO 09/13/24 22:00 Midodrine 5 mg TID@0600,1200,1800 PO 09/15/24 06:00 09/20/24 17:18 5 MG Meropenem 50 ml @ 17 mls/hr Q12HR IV 09/15/24 22:00 09/20/24 10:00 17 MLS/HR Albuterol 2.5 mg Q8HR NEB 09/15/24 14:00 09/20/24 18:34 2.5 MG Ipratropium [place] 0.5 mg Q8HR NEB 09/15/24 08:45 09/20/24 18:34 0.5 MG Diagnostic Test (Pha) 1 strip Q6HR 09/15/24 12:00 09/20/24 17:18 1 STRIP Guaifenesin/ Dextromethorphan 10 ml Q4HP PRN PO 09/16/24 03:15 09/19/24 19:49 10 ML Metronidazole 100 ml @ 100 mls/hr Q8HR IV 09/16/24 09:15 09/20/24 16:29 100 MLS/HR Vancomycin HCl 125 mg QID PO 09/16/24 22:00 09/20/24 17:18 125 MG Doxycycline Hyclate 100 ml @ 50 mls/hr Q12H IV 09/16/24 20:45 09/20/24 09:22 50 MLS/HR Enteral Nutritional Formula 28.8 gm BIDWM PO 09/18/24 18:00 09/20/24 18:11 28.8 GM Enteral Nutritional Formula 240 ml BIDWM PO 09/18/24 18:00 09/20/24 18:11 240 ML Pantoprazole Sodium 40 mg BID IV 09/19/24 10:00 09/20/24 09:21 40 MG Sucralfate 1 gm BID@0600,2200 PO 09/19/24 22:00 09/20/24 05:31 1 GM Saccharomyces Boulardii 250 mg DAILY PO 09/19/24 11:10 09/20/24 09:21 250 MG objective Gen.: Patient lying in bed in no apparent distress. On supplemental oxygen. Head: Normocephalic, atraumatic. Eyes: EOMI/PERRLA. Ears: Normal hearing. Normal anatomy. Neck/trachea: Trachea midline, supple. Nose: Normal external anatomy. Mouth: Moist mucous membranes. Chest: Decreased air entry bilaterally. No wheezing or rhonchi. Cardiovascular: Positive S1, positive S2. Regular rate and rhythm. Abdomen: Positive bowel sounds in all 4 quadrants. Soft, non-tender, non- distended. : Deferred. Rectal: Deferred. Skin: Warm, dry. Intact. Extremities: 2+ radial pulses bilaterally. No lower extremity edema. Neuro: Awake, alert, oriented x3. No gross motor or sensory deficits. Cranial nerves II through XII intact. Gait not assessed. laboratory and microbiology Laboratory Tests 09/20/24 03:23 Test 09/20/24 03:23 Range/Units Serum Glucose 87 74-106 mg/dL Assessment/Plan Impression: Acute hypoxic respiratory failure Dependence on supplemental oxygen Chronic obstructive pulmonary disease, stable Anemia Leukocytosis Thrombocytopenia Lactic acidosis End-stage renal disease, on hemodialysis Congestive heart failure Shock, septic Pneumonia, likely gram negative Ascites Small bilateral pleural effusions Atelectasis Hepatitis C Events: Remains on supplemental oxygen, 2 LPM NC Taper O2 as tolerated No distress Off pressors since 8 AM on 09/16/24, hemodynamically stable. Downgraded to tele. Patient tolerating hemodialysis - underwent HD yesterday Nephrology recommendations appreciated Incentive spirometry Continue antibiotics WBC within normal limits ID recommendations appreciated Monitor hemodynamics during HD. Labs and imaging reviewed. Rest of plan as noted below. Plan: Supplemental oxygen Titrate to keep O2 sats above 92%. Pressors if necessary for hemodynamic support Titrate to keep mean arterial pressure greater than 65 mmHg. Stool for C. diff negative. Wound care Monitor hemoglobin Transfuse if less than 7.0 g/dL Continue antibiotics Follow up cultures Incentive spirometry Monitor WBC Monitor platelets Monitor lactic acid Maintain euvolemia Monitor renal function. Monitor electrolytes. Supplement as necessary. Monitor ins and outs. HD per Nephrology Avoid volume overload GI/DVT prophylaxis. Prognosis: Poor given patient's multiple co-morbidities. Rest of plan per hospitalist and other consultants. Thank you, Dr. Pitts, for allowing me to participate in this patient's care. Further recommendations will depend on the patient's clinical course. Please do not hesitate to contact me if you have any questions or concerns. This medical document was created using an electronic medical record system with [employer] dictation system. Although these documentations are being carefully reviewed, there may still be some phonetic and typographical changes. The errors are purely typographical, due to imperfection on the software program, and do not reflect any compromise in the patient's medical care. Dietary Evaluation Review Comments: 1. Nepro PO 19g Pro, 420kcal, BIDWM providing 38 gProtein 840kcal in two servings,if pt can drink both. 2. Consider Fam BID Fruit Punch flavor for promoting wound healing Expected Outcomes/Goals: Improved appetite, healed wounds, gradual wt gain. Plan discussed with: Patient, Other (SUSANNAH Sánchez) CC Plasma Assessment Blood Product Administration S: [id number] TONG BLUNT MD Sep 20, 2024 18:55
[2024-09-21] VITALS (17 sets, daily range): BP systolic 108–119; BP diastolic 61–75; PULSE 66–78; RESP 16–18; TEMP 97.2–97.9; O2SAT 96–100
[2024-09-21] MEDS: IPRATROPIUM BROM 0.5 MG/2.5ML INH SOL ONE (05:43)
[2024-09-21] MEDS: ALBUTEROL SULF 2.5 MG/0.5ML(0.5%) NEB SOLN ONE (05:43)
[2024-09-21 07:39] LABS: Anion Gap 10 (5-15); Carbon Dioxide 24 mmol/L (20-31); Chloride 102 mmol/L (98-107); Potassium 4.3 mmol/L (3.5-5.1); Sodium 136 mmol/L (136-145)
[2024-09-21 07:40] LABS: Basophils # (auto) 0.1 10 ^3/uL (0-0.2); Basophils % (auto) 0.9 % (0.0-2.0); Eosinophils # (auto) 0.4 10 ^3/uL (0-0.8); Hematocrit 30.2 % (41.0-53.0); Hemoglobin 9.6 g/dL (13.5-17.5); Lymphocytes # (auto) 2.1 10 ^3/uL (0.4-5.4); Lymphocytes % (auto) 18.3 % (10.0-50.0); Mean Corpuscular Hemoglobin 30.3 pg (28.0-32.0); Mean Corpuscular Hgb Conc. 31.9 g/dL (32.0-36.0); Monocytes # (auto) 0.8 10 ^3/uL (0-1.3); Neutrophils # (auto) 7.9 10 ^3/uL (1.6-8.6); Neutrophils % (auto) 69.8 % (37.0-80.0); Nucleated Red Blood Cells % 0.3 %; Platelet Count (auto) 92 10^3/uL (140-450); Red Blood Cells 3.18 10^6/uL (4.5-5.90); Red Cell Distribution Width 20.2 % (11.8-14.3); White Blood Cell 11.2 10^3/uL (4.4-10.8)
[2024-09-21 07:44] LABS: Glucose 88 mg/dL (74-106)
[2024-09-21 07:45] LABS: BUN/Creatinine Ratio 10.2 (10.0-20.0); Blood Urea Nitrogen 51 mg/dL (9-23); Calcium 7.6 mg/dL (8.7-10.4); Magnesium 1.9 mg/dL (1.6-2.6)
[2024-09-21 07:47] LABS: Phosphorus 5.1 mg/dL (2.4-5.1)
--- NOTE | 2024-09-21 12:21 | DVHPN2 ---
Progress Note Date Seen: Sep 21, 2024 Has the PT tested + for MRSA If YES, has PT been informed?: No Medical Necessity Reason Pt with a Central, PICC or Fol: No Subjective Patient reports: No new complaints Other Systems: Patient seen and examined by myself today in follow-up Objective vital signs Vital Sign Date Time Temp Pulse Resp B/P (MAP) Pulse Ox O2 Delivery O2 Flow Rate FiO2 09/21/24 08:53 97.6 73 16 117/75 (89) 99 97.6 09/21/24 06:08 Nasal Cannula* 2 28 Total Intake and Output 09/20/24 09/20/24 09/21/24 15:00 23:00 07:00 Intake Total 210 ml 300 ml 300 ml Balance 210 ml 300 ml 300 ml medications Current Medications Medications Dose Ordered Sig/Cameron Route Start Time Stop Time Status Last Admin Dose Admin Ondansetron HCl 4 mg Q4HP PRN IV 09/13/24 14:00 Nitroglycerin 0.4 mg Q5MINP PRN SL 09/13/24 14:00 Acetaminophen/ Hydrocodone Bitart 1 tab Q6HP PRN PO 09/13/24 22:00 09/19/24 22:08 1 TAB Acetaminophen 650 mg Q6HP PRN PO 09/13/24 22:00 Midodrine 5 mg TID@0600,1200,1800 PO 09/15/24 06:00 09/21/24 05:18 5 MG Meropenem 50 ml @ 17 mls/hr Q12HR IV 09/15/24 22:00 09/21/24 11:18 17 MLS/HR Albuterol 2.5 mg Q8HR NEB 09/15/24 14:00 09/21/24 06:08 2.5 MG Ipratropium [place] 0.5 mg Q8HR NEB 09/15/24 08:45 09/21/24 06:08 0.5 MG Diagnostic Test (Pha) 1 strip Q6HR 09/15/24 12:00 09/21/24 05:19 1 STRIP Guaifenesin/ Dextromethorphan 10 ml Q4HP PRN PO 09/16/24 03:15 09/19/24 19:49 10 ML Metronidazole 100 ml @ 100 mls/hr Q8HR IV 09/16/24 09:15 09/21/24 05:19 100 MLS/HR Vancomycin HCl 125 mg QID PO 09/16/24 22:00 09/21/24 05:18 125 MG Doxycycline Hyclate 100 ml @ 50 mls/hr Q12H IV 09/16/24 20:45 09/21/24 08:36 50 MLS/HR Enteral Nutritional Formula 28.8 gm BIDWM PO 09/18/24 18:00 09/21/24 08:35 28.8 GM Enteral Nutritional Formula 240 ml BIDWM PO 09/18/24 18:00 09/20/24 18:11 240 ML Pantoprazole Sodium 40 mg BID IV 09/19/24 10:00 09/21/24 08:33 40 MG Sucralfate 1 gm BID@0600,2200 PO 09/19/24 22:00 09/21/24 05:18 1 GM Saccharomyces Boulardii 250 mg DAILY PO 09/19/24 11:10 09/21/24 08:37 250 MG Examination: LUNGS:Normal, CVS:Normal, MSK:Normal laboratory and microbiology Laboratory Tests 09/21/24 07:09 Test 09/21/24 07:09 Range/Units Serum Glucose 88 74-106 mg/dL Microbiology Date/Time Source Procedure Growth Status 09/15/24 08:00 Stool Clostridium difficile Toxin Assay - Final Complete 09/14/24 11:27 Nose MRSA Screen - Final Complete 09/13/24 14:12 Blood Blood Culture - Final NO GROWTH AFTER 5 DAYS OF INCUBATION. Complete Problem List/Assessment/Plan Problem List/Assessment/Plan End-stage renal disease on hemodialysis via CVC Acute hypoxic respiratory failure s/p septic Shock Chronic diastolic Congestive heart failure Anemia due to chronic kidney disease Recommendations Hemodialysis tomorrow Epogen 82879 subQ 3 times a week Sepsis workup per primary team IV antibiotics Renal diet We will continue to follow up Plan discussed with: Patient My Orders My Orders Orders - RICARDO ENCINAS MD Procedure Category Date Status Time Hemodialysis Orders ORDERS 09/22/24 Transmitted 07:00 Dialysis Nursing NELLIE 09/22/24 In Process Message 07:00 Heparin Sodium PHA 09/22/24 In Process (Porcine) 07:00 Heparin Sodium PHA 09/22/24 In Process (Porcine) 07:00 Sodium Chloride 0.9% PHA 09/22/24 In Process 07:00 Document Fluid Input NELLIE 09/22/24 In Process And Outpu 07:00 Epoetin [place]-Epbx PHA 09/22/24 In Process (Retacrit) 21:00 Dietary Evaluation Review Comments: 1. Nepro PO 19g Pro, 420kcal, BIDWM providing 38 gProtein 840kcal in two servings,if pt can drink both. 2. Consider Fam BID Fruit Punch flavor for promoting wound healing Expected Outcomes/Goals: Improved appetite, healed wounds, gradual wt gain. CC Plasma Assessment Blood Product Administration S: [id number] RICARDO ENCINAS MD Sep 21, 2024 12:21
--- NOTE | 2024-09-21 13:41 | DVHPNRES ---
Progress Note Date Seen: Sep 21, 2024 Resident Creating Document: CONNOR ALBERTS RESIDENT Has the PT tested + for MRSA If YES, has PT been informed?: No Medical Necessity Reason Pt with a Central, PICC or Fol: No Subjective Review of Systems This is a 59-year-old male with a past medical history of cerebrovascular accident, end-stage renal disease on hemodialysis (Saturday, Saturday, Saturday), hyperlipidemia, and hypertension, who presented with shortness of breath since the prior day. The patient was at home with his daughter and was on 2 L nasal cannula, which he increased to 4 L due to worsening dyspnea. Due to severe respiratory distress, he required BiPAP upon arrival to the emergency department. On evaluation, the patient was found to be hypotensive and was started on norepinephrine drip (Levo). He also had elevated lactate levels (3.2) concerning for sepsis. Hemoglobin had trended down from 10.2 to 7.6 since his last admission, and he was noted to have ESRD secondary to autosomal dominant polycystic kidney disease. Chest X-ray revealed cardiomegaly and signs of heart failure. Creatinine was elevated at 5.13 with a GFR of 10.2. No fever, chills, or signs of infection reported at the time. The patient denied GI bleeding and had no black or bloody stools, nausea, or vomiting. The patient previously had a bloodstream infection with gram-positive cocci (Staphylococcus hemolyticus) in July 2024 and had since been monitored with negative surveillance cultures. CT of the abdomen revealed innumerable bilateral calcified cystic kidney masses, consistent with polycystic kidney disease. Patient is ICU status for sepsis workup and hemodynamic support. Blood cultures and ceftriaxone + azithromycin were initiated. A triple lumen central line was placed for vasopressor administration. He is also anemic, likely secondary to chronic disease, and received one unit of PRBCs. HD done 09/14/24 09/15/24: wbc is trending high, levophed 10 mcg, patient was wheezing, solumedrol once, breathing treatments PRN, ceftriaxone and AZT was changed to meropenem + doxycycline, HD today, continue vancomycin, patient is also having diarrhea 09/16/24: wbc is trending high, patient is having multiples diarrheas, vanco and doxycicline DC, metronidazole added, levophed off since 8 am, patient will need levophed for HD, labile BPs 09/17/24: wbc is trending down, his bowel movements are more solid today, ID continued doxycicline and add vanco PO, levophed is off, pending HD today 09/21/24: wbc trending down, no fevers, no diarrhea, dc meropenem dc vanco PO, possible dc tomorrow, cultures negative Objective vital signs Vital Sign Date Time Temp Pulse Resp B/P (MAP) Pulse Ox O2 Delivery O2 Flow Rate FiO2 09/21/24 10:00 99 Nasal Cannula* 2 28 09/21/24 08:53 97.6 73 16 117/75 (89) 97.6 Total Intake and Output 09/20/24 09/20/24 09/21/24 14:59 22:59 06:59 Intake Total 210 ml 300 ml 300 ml Balance 210 ml 300 ml 300 ml medications Current Medications Medications Dose Ordered Sig/Cameron Route Start Time Stop Time Status Last Admin Dose Admin Ondansetron HCl 4 mg Q4HP PRN IV 09/13/24 14:00 Nitroglycerin 0.4 mg Q5MINP PRN SL 09/13/24 14:00 Acetaminophen/ Hydrocodone Bitart 1 tab Q6HP PRN PO 09/13/24 22:00 09/19/24 22:08 1 TAB Acetaminophen 650 mg Q6HP PRN PO 09/13/24 22:00 Midodrine 5 mg TID@0600,1200,1800 PO 09/15/24 06:00 09/21/24 12:35 5 MG Albuterol 2.5 mg Q8HR NEB 09/15/24 14:00 09/21/24 06:08 2.5 MG Ipratropium [place] 0.5 mg Q8HR NEB 09/15/24 08:45 09/21/24 06:08 0.5 MG Diagnostic Test (Pha) 1 strip Q6HR 09/15/24 12:00 09/21/24 12:00 1 STRIP Guaifenesin/ Dextromethorphan 10 ml Q4HP PRN PO 09/16/24 03:15 09/19/24 19:49 10 ML Metronidazole 100 ml @ 100 mls/hr Q8HR IV 09/16/24 09:15 09/21/24 05:19 100 MLS/HR Doxycycline Hyclate 100 ml @ 50 mls/hr Q12H IV 09/16/24 20:45 09/21/24 08:36 50 MLS/HR Enteral Nutritional Formula 28.8 gm BIDWM PO 09/18/24 18:00 09/21/24 08:35 28.8 GM Enteral Nutritional Formula 240 ml BIDWM PO 09/18/24 18:00 09/20/24 18:11 240 ML Pantoprazole Sodium 40 mg BID IV 09/19/24 10:00 09/21/24 08:33 40 MG Sucralfate 1 gm BID@0600,2200 PO 09/19/24 22:00 09/21/24 05:18 1 GM Saccharomyces Boulardii 250 mg DAILY PO 09/19/24 11:10 09/21/24 08:37 250 MG Examination General: Alert,nasal canula Cardiovascular: regular rhythm, no mrmurs, no gallops Respiratory: Bilateral breath sounds, diminished at bases, no wheezes GI: Soft, tender in lower quadrant, no hepatosplenomegaly Extremities: No edema, PermCath in place Neuro: Alert, no focal deficits Skin: No rash, no signs of bleeding laboratory and microbiology Laboratory Tests 09/21/24 07:09 Test 09/21/24 07:09 Range/Units Serum Glucose 88 74-106 mg/dL Microbiology Date/Time Source Procedure Growth Status 09/15/24 08:00 Stool Clostridium difficile Toxin Assay - Final Complete 09/14/24 11:27 Nose MRSA Screen - Final Complete 09/13/24 14:12 Blood Blood Culture - Final NO GROWTH AFTER 5 DAYS OF INCUBATION. Complete Problem List/Assessment/Plan Problem List/Assessment/Plan Acute on chronic hypoxic respiratory failure likely secondary to fluid overload Acute on chronic HFrEF Septic shock, likely from unknown source (prior bacteremia with gram-positive cocci) Possible PNA gram+/gram - improving Possible gastroenteritis: diarrhea improving ESRD on hemodialysis (MWF), likely volume overloaded Acute on chronic anemia likely secondary to CKD Polycystic kidney disease History of CVA Hyperlipidemia Small bilateral pleural effusions and ascites Chronic Hep C infection ECHO: Technically good study. Undetermined rhythm. Biatrial enlargement. Mild LV enlargement. Aortic root enlargement. Right ventricular outflow tract enlargement. Mild mitral annular calcification the aortic valve appears to be sclerotic. There is calcification of the right and left coronary cusp. Adequate excursion noted without significant stenosis. The tricuspid and pulmonic appear to be structurally normal. Left ventricular systolic performance is diminished. EF is approximately 40-45% with global hypokinesis. There is dyssynchrony between the apical and septal segments due to a interventricular conduction delay. There is trace mitral insufficiency mild tricuspid regurgitation. Moderate aortic insufficiency. Trace pulmonic insufficiency. No pericardial effusion masses or vegetations discernible. Next HD tomorrow DC Meropenem and Vancomycin PO Continue doxycycline and metronidazole Heparin 5000 ui TID Nephrology and Pulmonology on the case Midodrine Pending cultures Breathing treatments Patient doesnt produce urine wound care due to excoriations in rectal area Florastor Breathing tts PRN Possible DC tomorrow Case discussed with Dr Sabillon Plan discussed with: Patient, Other (rn) Dietary Evaluation Review Comments: 1. Nepro PO 19g Pro, 420kcal, BIDWM providing 38 gProtein 840kcal in two servings,if pt can drink both. 2. Consider Fam BID Fruit Punch flavor for promoting wound healing Expected Outcomes/Goals: Improved appetite, healed wounds, gradual wt gain. CC Plasma Assessment Blood Product Administration S: [id number] CONNOR ALBERTS RESIDENT Sep 21, 2024 13:41
--- NOTE | 2024-09-21 23:16 | DVHPN2 ---
Progress Note - Dictate Date Seen: Sep 21, 2024 Has the PT tested + for MRSA If YES, has PT been informed?: No Medical Necessity Reason Pt with a Central, PICC or Fol: No Subjective Patient seen and examined at bedside. Remains on supplemental oxygen Overnight events reviewed. vital signs Vital Sign Date Time Temp Pulse Resp B/P (MAP) Pulse Ox O2 Delivery O2 Flow Rate FiO2 09/21/24 21:43 77 18 100 09/21/24 21:35 Nasal Cannula* 2 28 09/21/24 21:00 97.9 109/61 (77) 97.9 Total Intake and Output 09/20/24 09/20/24 09/21/24 15:00 23:00 07:00 Intake Total 210 ml 300 ml 300 ml Balance 210 ml 300 ml 300 ml medications Current Medications Medications Dose Ordered Sig/Cameron Route Start Time Stop Time Status Last Admin Dose Admin Ondansetron HCl 4 mg Q4HP PRN IV 09/13/24 14:00 Nitroglycerin 0.4 mg Q5MINP PRN SL 09/13/24 14:00 Acetaminophen/ Hydrocodone Bitart 1 tab Q6HP PRN PO 09/13/24 22:00 09/19/24 22:08 1 TAB Acetaminophen 650 mg Q6HP PRN PO 09/13/24 22:00 Midodrine 5 mg TID@0600,1200,1800 PO 09/15/24 06:00 09/21/24 17:46 5 MG Albuterol 2.5 mg Q8HR NEB 09/15/24 14:00 09/21/24 21:35 2.5 MG Ipratropium [place] 0.5 mg Q8HR NEB 09/15/24 08:45 09/21/24 21:35 0.5 MG Diagnostic Test (Pha) 1 strip Q6HR 09/15/24 12:00 09/21/24 21:24 1 STRIP Guaifenesin/ Dextromethorphan 10 ml Q4HP PRN PO 09/16/24 03:15 09/19/24 19:49 10 ML Metronidazole 100 ml @ 100 mls/hr Q8HR IV 09/16/24 09:15 09/21/24 21:19 100 MLS/HR Doxycycline Hyclate 100 ml @ 50 mls/hr Q12H IV 09/16/24 20:45 09/21/24 21:19 50 MLS/HR Enteral Nutritional Formula 28.8 gm BIDWM PO 09/18/24 18:00 09/21/24 17:48 28.8 GM Enteral Nutritional Formula 240 ml BIDWM PO 09/18/24 18:00 09/21/24 17:47 240 ML Pantoprazole Sodium 40 mg BID IV 09/19/24 10:00 09/21/24 21:19 40 MG Sucralfate 1 gm BID@0600,2200 PO 09/19/24 22:00 09/21/24 22:27 1 GM Saccharomyces Boulardii 250 mg DAILY PO 09/19/24 11:10 09/21/24 08:37 250 MG objective Gen.: Patient lying in bed in no apparent distress. On supplemental oxygen. Head: Normocephalic, atraumatic. Eyes: EOMI/PERRLA. Ears: Normal hearing. Normal anatomy. Neck/trachea: Trachea midline, supple. Nose: Normal external anatomy. Mouth: Moist mucous membranes. Chest: Decreased air entry bilaterally. No wheezing or rhonchi. Cardiovascular: Positive S1, positive S2. Regular rate and rhythm. Abdomen: Positive bowel sounds in all 4 quadrants. Soft, non-tender, non- distended. : Deferred. Rectal: Deferred. Skin: Warm, dry. Intact. Extremities: 2+ radial pulses bilaterally. No lower extremity edema. Neuro: Awake, alert, oriented x3. No gross motor or sensory deficits. Cranial nerves II through XII intact. Gait not assessed. laboratory and microbiology Laboratory Tests 09/21/24 07:09 Test 09/21/24 07:09 Range/Units Serum Glucose 88 74-106 mg/dL Assessment/Plan Impression: Acute hypoxic respiratory failure Dependence on supplemental oxygen Chronic obstructive pulmonary disease, stable Anemia Leukocytosis Thrombocytopenia Lactic acidosis End-stage renal disease, on hemodialysis Congestive heart failure Shock, septic Pneumonia, likely gram negative Ascites Small bilateral pleural effusions Atelectasis Hepatitis C Events: Remains on supplemental oxygen, 2 LPM NC Taper O2 as tolerated No distress Monitor hemoglobin - stable at 9.6 g/dL Off pressors since 8 AM on 09/16/24, hemodynamically stable. HD per nephrology Monitor Ins and Outs Monitor renal function and electrolytes. Monitor hemodynamics during HD. Incentive spirometry Continue antibiotics WBC trended up to 11.2 ID recommendations appreciated Labs and imaging reviewed. Rest of plan as noted below. Plan: Supplemental oxygen Titrate to keep O2 sats above 92%. Pressors if necessary for hemodynamic support Titrate to keep mean arterial pressure greater than 65 mmHg. Wound care Continue antibiotics Follow up cultures Incentive spirometry Monitor WBC Monitor platelets Monitor lactic acid Monitor hemoglobin Maintain euvolemia Monitor renal function. Monitor electrolytes. Supplement as necessary. Monitor ins and outs. HD per Nephrology Avoid volume overload GI/DVT prophylaxis. Prognosis: Poor given patient's multiple co-morbidities. Rest of plan per hospitalist and other consultants. Thank you, Dr. Pitts, for allowing me to participate in this patient's care. Further recommendations will depend on the patient's clinical course. Please do not hesitate to contact me if you have any questions or concerns. This medical document was created using an electronic medical record system with [employer] dictation system. Although these documentations are being carefully reviewed, there may still be some phonetic and typographical changes. The errors are purely typographical, due to imperfection on the software program, and do not reflect any compromise in the patient's medical care. Dietary Evaluation Review Comments: 1. Nepro PO 19g Pro, 420kcal, BIDWM providing 38 gProtein 840kcal in two servings,if pt can drink both. 2. Consider Fam BID Fruit Punch flavor for promoting wound healing Expected Outcomes/Goals: Improved appetite, healed wounds, gradual wt gain. Plan discussed with: Patient, Other (SUSANNAH Soto) CC Plasma Assessment Blood Product Administration S: [id number] TONG BLUNT MD Sep 21, 2024 23:16
[2024-09-22] VITALS (13 sets, daily range): BP systolic 114–143; BP diastolic 63–84; PULSE 64–78; RESP 16–20; TEMP 97.3–98.1; O2SAT 94–100
[2024-09-22] MEDS: SODIUM CHL 0.9% 1000 ML BAG XX ONE (07:00)
[2024-09-22 07:40] LABS: Basophils # (auto) 0.1 10 ^3/uL (0-0.2); Basophils % (auto) 0.6 % (0.0-2.0); Eosinophils # (auto) 0.5 10 ^3/uL (0-0.8); Eosinophils % (auto) 4.9 % (0.0-7.0); Hematocrit 32.2 % (41.0-53.0); Lymphocytes # (auto) 2.1 10 ^3/uL (0.4-5.4); Lymphocytes % (auto) 19.2 % (10.0-50.0); Mean Corpuscular Hemoglobin 29.7 pg (28.0-32.0); Mean Corpuscular Hgb Conc. 30.9 g/dL (32.0-36.0); Mean Corpuscular Volume 95.9 fL (80.0-100.0); Monocytes # (auto) 0.9 10 ^3/uL (0-1.3); Neutrophils # (auto) 7.3 10 ^3/uL (1.6-8.6); Neutrophils % (auto) 67.3 % (37.0-80.0); Nucleated Red Blood Cells % 0.4 %; Platelet Count (auto) 120 10^3/uL (140-450); Red Blood Cells 3.35 10^6/uL (4.5-5.90); Red Cell Distribution Width 22.4 % (11.8-14.3); White Blood Cell 10.8 10^3/uL (4.4-10.8)
[2024-09-22 07:57] LABS: Alkaline Phosphatase 79 U/L (46-116); Anion Gap 9 (5-15); Aspartate Aminotransferase 17 U/L (13-40); BUN/Creatinine Ratio 8.5 (10.0-20.0); Carbon Dioxide 25 mmol/L (20-31); Chloride 102 mmol/L (98-107); Glucose 80 mg/dL (74-106); Potassium 4.1 mmol/L (3.5-5.1); Sodium 136 mmol/L (136-145)
[2024-09-22 07:58] LABS: Bilirubin, Total 0.7 mg/dL (0.2-1.0)
[2024-09-22 08:00] LABS: Alanine Aminotransferase < 9 U/L (7-40); Albumin 2.2 g/dL (3.2-4.8); Blood Urea Nitrogen 49 mg/dL (9-23); Calcium 7.9 mg/dL (8.7-10.4)
--- NOTE | 2024-09-22 10:20 | DVHPN2 ---
Progress Note Date Seen: Sep 22, 2024 Has the PT tested + for MRSA If YES, has PT been informed?: No Medical Necessity Reason Pt with a Central, PICC or Fol: No Subjective Patient reports: No new complaints Other Systems: Patient seen and examined by myself today in follow-up Patient examined hemodialysis, blood pressure stable Objective vital signs Vital Sign Date Time Temp Pulse Resp B/P (MAP) Pulse Ox O2 Delivery O2 Flow Rate FiO2 09/22/24 09:00 97.5 76 18 130/84 (99) 96 97.5 09/22/24 07:01 Nasal Cannula* 2 28 Total Intake and Output 09/21/24 09/21/24 09/22/24 14:59 22:59 06:59 Intake Total 150 ml 100 ml 0 ml Balance 150 ml 100 ml 0 ml medications Current Medications Medications Dose Ordered Sig/Cameron Route Start Time Stop Time Status Last Admin Dose Admin Ondansetron HCl 4 mg Q4HP PRN IV 09/13/24 14:00 Nitroglycerin 0.4 mg Q5MINP PRN SL 09/13/24 14:00 Acetaminophen/ Hydrocodone Bitart 1 tab Q6HP PRN PO 09/13/24 22:00 09/19/24 22:08 1 TAB Acetaminophen 650 mg Q6HP PRN PO 09/13/24 22:00 Midodrine 5 mg TID@0600,1200,1800 PO 09/15/24 06:00 09/22/24 05:43 5 MG Albuterol 2.5 mg Q8HR NEB 09/15/24 14:00 09/22/24 06:59 2.5 MG Ipratropium [place] 0.5 mg Q8HR NEB 09/15/24 08:45 09/22/24 06:59 0.5 MG Diagnostic Test (Pha) 1 strip Q6HR 09/15/24 12:00 09/22/24 05:46 1 STRIP Guaifenesin/ Dextromethorphan 10 ml Q4HP PRN PO 09/16/24 03:15 09/19/24 19:49 10 ML Metronidazole 100 ml @ 100 mls/hr Q8HR IV 09/16/24 09:15 09/22/24 05:44 100 MLS/HR Doxycycline Hyclate 100 ml @ 50 mls/hr Q12H IV 09/16/24 20:45 09/22/24 08:27 50 MLS/HR Enteral Nutritional Formula 28.8 gm BIDWM PO 09/18/24 18:00 09/22/24 08:27 28.8 GM Enteral Nutritional Formula 240 ml BIDWM PO 09/18/24 18:00 09/22/24 08:28 240 ML Pantoprazole Sodium 40 mg BID IV 09/19/24 10:00 09/21/24 21:19 40 MG Sucralfate 1 gm BID@0600,2200 PO 09/19/24 22:00 09/22/24 05:43 1 GM Saccharomyces Boulardii 250 mg DAILY PO 09/19/24 11:10 09/21/24 08:37 250 MG Examination: LUNGS:Normal, CVS:Normal, MSK:Normal laboratory and microbiology Laboratory Tests 09/22/24 06:32 Test 09/22/24 06:32 Range/Units Serum Glucose 80 74-106 mg/dL Microbiology Date/Time Source Procedure Growth Status 09/15/24 08:00 Stool Clostridium difficile Toxin Assay - Final Complete 09/14/24 11:27 Nose MRSA Screen - Final Complete 09/13/24 14:12 Blood Blood Culture - Final NO GROWTH AFTER 5 DAYS OF INCUBATION. Complete Problem List/Assessment/Plan Problem List/Assessment/Plan End-stage renal disease on hemodialysis via CVC Acute hypoxic respiratory failure s/p septic Shock Chronic diastolic Congestive heart failure Anemia due to chronic kidney disease Hyperphosphatemia Recommendations Continue with UF to 3 L as tolerated Epogen 83129 subQ 3 times a week Sepsis workup per primary team IV antibiotics Calcium acetate with meals Renal diet We will continue to follow up Plan discussed with: Patient Dietary Evaluation Review Comments: 1. Nepro PO 19g Pro, 420kcal, BIDWM providing 38 gProtein 840kcal in two servings,if pt can drink both. 2. Consider Fam BID Fruit Punch flavor for promoting wound healing Expected Outcomes/Goals: Improved appetite, healed wounds, gradual wt gain. CC Plasma Assessment Blood Product Administration S: [id number] RICARDO ENCINAS MD Sep 22, 2024 10:20
[2024-09-22] MEDS: CALCIUM ACETATE 667 MG CAP PO SCH (12:00)
[2024-09-22] MEDS ORDERED: PANT40TA2 PO (13:16)
[2024-09-22] MEDS ORDERED: ACET-1882 PO (13:16)
--- NOTE | 2024-09-22 14:22 | DVHDSRES ---
Discharge Summary Date of Admission Resident Creating Document: CONNOR ALBERTS RESIDENT Sep 13, 2024 at 13:50 Date of Discharge: Sep 22, 2024 Labs/Diagnostic Data: Laboratory Results Test 09/22/24 06:32 09/21/24 17:53 09/21/24 07:09 09/19/24 13:09 White Blood Count 10.8 10^3/uL (4.4-10.8) Red Blood Count 3.35 10^6/uL (4.5-5.90) Hemoglobin 10.0 g/dL (13.5-17.5) Hematocrit 32.2 % (41.0-53.0) Mean Corpuscular Volume 95.9 fL (80.0-100.0) Mean Corpuscular Hemoglobin 29.7 pg (28.0-32.0) Mean Corpuscular Hemoglobin Concent 30.9 g/dL (32.0-36.0) Red Cell Distribution Width 22.4 % (11.8-14.3) Platelet Count 120 10^3/uL (140-450) Mean Platelet Volume 8.1 fL (6.9-10.8) Neutrophils (%) (Auto) 67.3 % (37.0-80.0) Lymphocytes (%) (Auto) 19.2 % (10.0-50.0) Monocytes (%) (Auto) 8.0 % (0.0-12.0) Eosinophils (%) (Auto) 4.9 % (0.0-7.0) Basophils (%) (Auto) 0.6 % (0.0-2.0) Neutrophils # (Auto) 7.3 10 ^3/uL (1.6-8.6) Lymphocytes # (Auto) 2.1 10 ^3/uL (0.4-5.4) Monocytes # (Auto) 0.9 10 ^3/uL (0-1.3) Eosinophils # (Auto) 0.5 10 ^3/uL (0-0.8) Basophils # (Auto) 0.1 10 ^3/uL (0-0.2) Nucleated Red Blood Cells 0.4 % Sodium Level 136 mmol/L (136-145) Potassium Level 4.1 mmol/L (3.5-5.1) Chloride Level 102 mmol/L (98-107) Carbon Dioxide Level 25 mmol/L (20-31) Anion Gap 9 (5-15) Blood Urea Nitrogen 49 mg/dL (9-23) Creatinine 5.79 mg/dL (0.700-1.30) Glomerular Filtration Rate Calc 11 mL/min (>90) BUN/Creatinine Ratio 8.5 (10.0-20.0) Serum Glucose 80 mg/dL (74-106) Calcium Level 7.9 mg/dL (8.7-10.4) Total Bilirubin 0.7 mg/dL (0.2-1.0) Aspartate Amino Transferase (AST) 17 U/L (13-40) Alanine Aminotransferase (ALT) < 9 U/L (7-40) Alkaline Phosphatase 79 U/L (46-116) Total Protein 6.0 g/dL (5.7-8.2) Albumin 2.2 g/dL (3.2-4.8) POC Glucose 111 mg/dl (70-106) Phosphorus Level 5.1 mg/dL (2.4-5.1) Magnesium Level 1.9 mg/dL (1.6-2.6) Lactic Acid Level 1.5 mmol/L (0.4-2.0) Test 09/16/24 11:05 09/16/24 03:35 09/14/24 11:27 09/13/24 13:20 Random Vancomycin Level 16.1 ug/mL (5-10) Differential Total Cells Counted 100.0 (100) Neutrophils % (Manual) 93 (37.0-80.0) Band Neutrophils % (Manual) 0 Lymphocytes % (Manual) 5 (10.0-50.0) Monocytes % (Manual) 2 (0-12) Eosinophils % (Manual) 0 (0-7) Basophils % (Manual) 0 (0.0-2.0) Metamyelocytes % (manual) 0 Myelocytes % (Manual) 0 Promyelocytes % (Manual) 0 Blast Cells % (Manual) 0 Reactive Lymphocytes 0 Platelet Estimate Decreased Large Platelets Few C-Reactive Protein High Sensitivity 17.14 mg/dL (<1.0) Influenza Type A Antigen Negative (Negative) Influenza Type B Antigen Negative (Negative) SARS-CoV-2 Antigen (Rapid) Negative (NEGATIVE) Blood Gas Specimen Type Arterial Blood Gas Sample Site Right radial Blood Gas Patient Temperature 37.0 Arterial Blood Date Drawn [id number] Arterial Blood pH 7.460 (7.350-7.450) Arterial Blood Partial Pressure CO2 36.7 mmHg (35.0-48.0) Arterial Blood Partial Pressure O2 66.2 mmHg (83.0-108.0) Arterial Blood HCO3 25.5 mmol/L (21.0-28.0) Arterial Blood Oxygen Saturation 93.0 % (94.0-98.0) Arterial Blood Base Excess 1.7 mmol/L (-2.0-3.0) Arterial Blood Oxyhemoglobin 91.8 % (94.0-98.0) Arterial Blood Carboxyhemoglobin 1.0 % (0.5-1.5) Arterial Blood Methemoglobin 0.3 % (0.0-1.5) Gallo Test Yes Blood Gas Total Hemoglobin 9.40 g/dL (13.5-17.5) Blood Gas Set Respiration Rate 12.0 Blood Gas Modality Mask - bipap FiO2 % 35.0 Blood Gas EPAP 5 Blood Gas IPAP 12 Test 09/13/24 13:11 09/13/24 11:13 Hepatitis A IgM Antibody Negative Hepatitis B Surface Antigen Negative (Negative) Hepatitis B Core IgM Antibody Negative (Negative) Hepatitis C Antibody Reactive (Negative) Smudge Cells 3 /100 WBC Troponin I High Sensitivity 6 ng/L (</=54) B-Type Natriuretic Peptide 103.23 pg/mL (0-100) Other Laboratory Tests 09/22/24 06:32 Final Diagnosis/Problems List acute gastroenteritis acute heart failure Discharge Disposition: Home with Health Services Discharge Instruct/Medications Diet: Cardiac 2g Na,low cholest, Renal Activity: Light activity Follow Up/Referral: dc clinic and nephrology and cardiolgoy Medications: see prescription Discharge Statement: "Patient was advised to return to the ER or call 911 if any headaches, dizziness, shortness of breath, chest pain, abdominal pain, bleeding, fevers, or worsening of medical condition. Patient was counseled about treatment plan, medications, possible side effects, patientverbalized understanding. All questions were answered to the best of my ability. This discharge took greater then 30 minutes in planning, reviewing documentation, counseling the patient, and discussing with other team members." ASSESSMENT ASSESSMENT Assessment acute gastroenteritis acute heart failure CONNOR ALBERTS RESIDENT Sep 22, 2024 14:22
--- NOTE | 2024-09-22 18:13 | DVHPNRES ---
Progress Note Date Seen: Sep 22, 2024 Resident Creating Document: CONNOR ALBERTS RESIDENT Has the PT tested + for MRSA If YES, has PT been informed?: No Medical Necessity Reason Pt with a Central, PICC or Fol: No Subjective Review of Systems This is a 59-year-old male with a past medical history of cerebrovascular accident, end-stage renal disease on hemodialysis (Saturday, Saturday, Saturday), hyperlipidemia, and hypertension, who presented with shortness of breath since the prior day. The patient was at home with his daughter and was on 2 L nasal cannula, which he increased to 4 L due to worsening dyspnea. Due to severe respiratory distress, he required BiPAP upon arrival to the emergency department. On evaluation, the patient was found to be hypotensive and was started on norepinephrine drip (Levo). He also had elevated lactate levels (3.2) concerning for sepsis. Hemoglobin had trended down from 10.2 to 7.6 since his last admission, and he was noted to have ESRD secondary to autosomal dominant polycystic kidney disease. Chest X-ray revealed cardiomegaly and signs of heart failure. Creatinine was elevated at 5.13 with a GFR of 10.2. No fever, chills, or signs of infection reported at the time. The patient denied GI bleeding and had no black or bloody stools, nausea, or vomiting. The patient previously had a bloodstream infection with gram-positive cocci (Staphylococcus hemolyticus) in July 2024 and had since been monitored with negative surveillance cultures. CT of the abdomen revealed innumerable bilateral calcified cystic kidney masses, consistent with polycystic kidney disease. Patient was ICU status for sepsis workup and hemodynamic support. Blood cultures and ceftriaxone + azithromycin were initiated. A triple lumen central line was placed for vasopressor administration. He is also anemic, likely secondary to chronic disease, and received one unit of PRBCs. HD done 09/14/24 09/15/24: wbc is trending high, levophed 10 mcg, patient was wheezing, solumedrol once, breathing treatments PRN, ceftriaxone and AZT was changed to meropenem + doxycycline, HD today, continue vancomycin, patient is also having diarrhea 09/16/24: wbc is trending high, patient is having multiples diarrheas, vanco and doxycicline DC, metronidazole added, levophed off since 8 am, patient will need levophed for HD, labile BPs 09/17/24: wbc is trending down, his bowel movements are more solid today, ID continued doxycicline and add vanco PO, levophed is off, pending HD today 09/21/24: wbc trending down, no fevers, no diarrhea, dc meropenem dc vanco PO, possible dc tomorrow, cultures negative 09/22/24: normal wbc, HD without complications, patient has stroke sequelae, was previously assessed by PT which considered home health PT but talking with the daughter she stated that in the previous admission, HH services was given with no progress in his rehab, new PT re-evaluation is ordered for possible transfer to SNF Objective vital signs Vital Sign Date Time Temp Pulse Resp B/P (MAP) Pulse Ox O2 Delivery O2 Flow Rate FiO2 09/22/24 17:00 98.1 78 16 135/80 (98) 95 98.1 09/22/24 10:00 Nasal Cannula* 2 28 Total Intake and Output 09/21/24 09/21/24 09/22/24 15:00 23:00 07:00 Intake Total 250 ml 0 ml Balance 250 ml 0 ml medications Current Medications Medications Dose Ordered Sig/Cameron Route Start Time Stop Time Status Last Admin Dose Admin Ondansetron HCl 4 mg Q4HP PRN IV 09/13/24 14:00 Nitroglycerin 0.4 mg Q5MINP PRN SL 09/13/24 14:00 Acetaminophen/ Hydrocodone Bitart 1 tab Q6HP PRN PO 09/13/24 22:00 09/19/24 22:08 1 TAB Acetaminophen 650 mg Q6HP PRN PO 09/13/24 22:00 Midodrine 5 mg TID@0600,1200,1800 PO 09/15/24 06:00 09/22/24 12:02 5 MG Albuterol 2.5 mg Q8HR NEB 09/15/24 14:00 09/22/24 06:59 2.5 MG Ipratropium [place] 0.5 mg Q8HR NEB 09/15/24 08:45 09/22/24 06:59 0.5 MG Diagnostic Test (Pha) 1 strip Q6HR 09/15/24 12:00 09/22/24 12:05 1 STRIP Guaifenesin/ Dextromethorphan 10 ml Q4HP PRN PO 09/16/24 03:15 09/19/24 19:49 10 ML Metronidazole 100 ml @ 100 mls/hr Q8HR IV 09/16/24 09:15 09/22/24 16:58 100 MLS/HR Doxycycline Hyclate 100 ml @ 50 mls/hr Q12H IV 09/16/24 20:45 09/22/24 08:27 50 MLS/HR Enteral Nutritional Formula 28.8 gm BIDWM PO 09/18/24 18:00 09/22/24 08:27 28.8 GM Enteral Nutritional Formula 240 ml BIDWM PO 09/18/24 18:00 09/22/24 08:28 240 ML Pantoprazole Sodium 40 mg BID IV 09/19/24 10:00 09/22/24 10:16 40 MG Sucralfate 1 gm BID@0600,2200 PO 09/19/24 22:00 09/22/24 05:43 1 GM Saccharomyces Boulardii 250 mg DAILY PO 09/19/24 11:10 09/22/24 10:16 250 MG Calcium Acetate 667 mg TIDWMEALS PO 09/22/24 12:00 Examination General: Alert,nasal canula Cardiovascular: regular rhythm, no mrmurs, no gallops Respiratory: Bilateral breath sounds, diminished at bases, no wheezes GI: Soft, tender in lower quadrant, no hepatosplenomegaly Extremities: No edema, PermCath in place Neuro: Alert, no focal deficits, patient is able to sit and with help patient is able to walk few steps Skin: No rash, no signs of bleeding laboratory and microbiology Laboratory Tests 09/22/24 06:32 Test 09/22/24 06:32 Range/Units Serum Glucose 80 74-106 mg/dL Microbiology Date/Time Source Procedure Growth Status 09/15/24 08:00 Stool Clostridium difficile Toxin Assay - Final Complete 09/14/24 11:27 Nose MRSA Screen - Final Complete 09/13/24 14:12 Blood Blood Culture - Final NO GROWTH AFTER 5 DAYS OF INCUBATION. Complete Problem List/Assessment/Plan Problem List/Assessment/Plan Acute on chronic hypoxic respiratory failure likely secondary to fluid overload Acute on chronic HFrEF Septic shock, likely from unknown source (prior bacteremia with gram-positive cocci) Possible PNA gram+/gram - improving Possible gastroenteritis: diarrhea improving ESRD on hemodialysis (MWF), likely volume overloaded Acute on chronic anemia likely secondary to CKD Polycystic kidney disease History of CVA Hyperlipidemia Small bilateral pleural effusions and ascites Chronic Hep C infection Stroke sequelae Deconditioning ECHO: Technically good study. Undetermined rhythm. Biatrial enlargement. Mild LV enlargement. Aortic root enlargement. Right ventricular outflow tract enlargement. Mild mitral annular calcification the aortic valve appears to be sclerotic. There is calcification of the right and left coronary cusp. Adequate excursion noted without significant stenosis. The tricuspid and pulmonic appear to be structurally normal. Left ventricular systolic performance is diminished. EF is approximately 40-45% with global hypokinesis. There is dyssynchrony between the apical and septal segments due to a interventricular conduction delay. There is trace mitral insufficiency mild tricuspid regurgitation. Moderate aortic insufficiency. Trace pulmonic insufficiency. No pericardial effusion masses or vegetations discernible. HD today, no complications DC Meropenem and Vancomycin PO Continue doxycycline and metronidazole Heparin 5000 ui TID Nephrology and Pulmonology on the case Midodrine Pending cultures Breathing treatments Patient doesnt produce urine wound care due to excoriations in rectal area Florastor Breathing tts PRN 09/22/24: normal wbc, HD without complications, patient has stroke sequelae, was previously assessed by PT which considered home health PT but talking with the daughter she stated that in the previous admission, HH services was given before with no progress in his rehab, according to her, new PT re-evaluation is ordered for possible transfer to SNF Case discussed with Dr Sabillon Plan discussed with: Patient, Other (rn) My Orders My Orders Orders - CONNOR ALBERTS RESIDENT Procedure Category Date Status Time Discharge DISCHARGE 09/22/24 Transmitted 15:55 * Audiologist CONS 09/22/24 Transmitted Consult Pt Re-Eval 15min PT 09/22/24 Logged 16:17 Dietary Evaluation Review Comments: 1. Nepro PO 19g Pro, 420kcal, BIDWM providing 38 gProtein 840kcal in two servings,if pt can drink both. 2. Consider Fam BID Fruit Punch flavor for promoting wound healing Expected Outcomes/Goals: Improved appetite, healed wounds, gradual wt gain. CC Plasma Assessment Blood Product Administration S: [id number] CONNOR ALBERTS RESIDENT Sep 22, 2024 18:13
--- NOTE | 2024-09-22 20:52 | DVHPN2 ---
Progress Note - Dictate Date Seen: Sep 22, 2024 Has the PT tested + for MRSA If YES, has PT been informed?: No Medical Necessity Reason Pt with a Central, PICC or Fol: No Subjective Patient seen and examined at bedside. Remains on supplemental oxygen Overnight events reviewed. vital signs Vital Sign Date Time Temp Pulse Resp B/P (MAP) Pulse Ox O2 Delivery O2 Flow Rate FiO2 09/22/24 19:31 66 16 100 09/22/24 19:25 Nasal Cannula 1.0 09/22/24 19:25 24 09/22/24 17:00 98.1 135/80 (98) 98.1 Total Intake and Output 09/21/24 09/21/24 09/22/24 15:00 23:00 07:00 Intake Total 250 ml 0 ml Balance 250 ml 0 ml medications Current Medications Medications Dose Ordered Sig/Cameron Route Start Time Stop Time Status Last Admin Dose Admin Ondansetron HCl 4 mg Q4HP PRN IV 09/13/24 14:00 Nitroglycerin 0.4 mg Q5MINP PRN SL 09/13/24 14:00 Acetaminophen/ Hydrocodone Bitart 1 tab Q6HP PRN PO 09/13/24 22:00 09/19/24 22:08 1 TAB Acetaminophen 650 mg Q6HP PRN PO 09/13/24 22:00 Midodrine 5 mg TID@0600,1200,1800 PO 09/15/24 06:00 09/22/24 18:23 5 MG Albuterol 2.5 mg Q8HR NEB 09/15/24 14:00 09/22/24 19:25 2.5 MG Ipratropium [place] 0.5 mg Q8HR NEB 09/15/24 08:45 09/22/24 19:25 0.5 MG Diagnostic Test (Pha) 1 strip Q6HR 09/15/24 12:00 09/22/24 18:23 1 STRIP Guaifenesin/ Dextromethorphan 10 ml Q4HP PRN PO 09/16/24 03:15 09/19/24 19:49 10 ML Metronidazole 100 ml @ 100 mls/hr Q8HR IV 09/16/24 09:15 09/22/24 16:58 100 MLS/HR Doxycycline Hyclate 100 ml @ 50 mls/hr Q12H IV 09/16/24 20:45 09/22/24 08:27 50 MLS/HR Enteral Nutritional Formula 28.8 gm BIDWM PO 09/18/24 18:00 09/22/24 18:22 28.8 GM Enteral Nutritional Formula 240 ml BIDWM PO 09/18/24 18:00 09/22/24 18:23 240 ML Pantoprazole Sodium 40 mg BID IV 09/19/24 10:00 09/22/24 10:16 40 MG Sucralfate 1 gm BID@0600,2200 PO 09/19/24 22:00 09/22/24 05:43 1 GM Saccharomyces Boulardii 250 mg DAILY PO 09/19/24 11:10 09/22/24 10:16 250 MG Calcium Acetate 667 mg TIDWMEALS PO 09/22/24 12:00 09/22/24 18:22 667 MG objective Gen.: Patient lying in bed in no apparent distress. On supplemental oxygen. Head: Normocephalic, atraumatic. Eyes: EOMI/PERRLA. Ears: Normal hearing. Normal anatomy. Neck/trachea: Trachea midline, supple. Nose: Normal external anatomy. Mouth: Moist mucous membranes. Chest: Decreased air entry bilaterally. No wheezing or rhonchi. Cardiovascular: Positive S1, positive S2. Regular rate and rhythm. Abdomen: Positive bowel sounds in all 4 quadrants. Soft, non-tender, non- distended. : Deferred. Rectal: Deferred. Skin: Warm, dry. Intact. Extremities: 2+ radial pulses bilaterally. No lower extremity edema. Neuro: Awake, alert, oriented x3. No gross motor or sensory deficits. Cranial nerves II through XII intact. Gait not assessed. laboratory and microbiology Laboratory Tests 09/22/24 06:32 Test 09/22/24 06:32 Range/Units Serum Glucose 80 74-106 mg/dL Assessment/Plan Impression: Acute hypoxic respiratory failure Dependence on supplemental oxygen Chronic obstructive pulmonary disease, stable Anemia Leukocytosis Thrombocytopenia Lactic acidosis End-stage renal disease, on hemodialysis Congestive heart failure Shock, septic Pneumonia, likely gram negative Ascites Small bilateral pleural effusions Atelectasis Hepatitis C Events: Remains on supplemental oxygen, 2 LPM NC Taper O2 as tolerated No distress Monitor hemoglobin - trending up to 10.0 g/dL Off pressors since 8 AM on 09/16/24, hemodynamically stable. HD per nephrology - 2 L removed Monitor Ins and Outs Monitor renal function and electrolytes. Monitor hemodynamics during HD. Incentive spirometry Continue antibiotics - Flagyl/Vibramycin WBC within normal limits at 10.8 ID recommendations appreciated Continue Midodrine Monitor blood pressure Protonix for GI prophylaxis Possible discharge to SNF. Labs and imaging reviewed. Rest of plan as noted below. Plan: Supplemental oxygen Titrate to keep O2 sats above 92%. Pressors if necessary for hemodynamic support Titrate to keep mean arterial pressure greater than 65 mmHg. Wound care Continue antibiotics Follow up cultures Incentive spirometry Monitor WBC Monitor platelets Monitor lactic acid Monitor hemoglobin Maintain euvolemia Monitor renal function. Monitor electrolytes. Supplement as necessary. Monitor ins and outs. HD per Nephrology Avoid volume overload GI prophylaxis Protonix. Prognosis: Poor given patient's multiple co-morbidities. Rest of plan per hospitalist and other consultants. Thank you, Dr. Pitts, for allowing me to participate in this patient's care. Further recommendations will depend on the patient's clinical course. Please do not hesitate to contact me if you have any questions or concerns. This medical document was created using an electronic medical record system with [employer] dictation system. Although these documentations are being carefully reviewed, there may still be some phonetic and typographical changes. The errors are purely typographical, due to imperfection on the software program, and do not reflect any compromise in the patient's medical care. Dietary Evaluation Review Comments: 1. Nepro PO 19g Pro, 420kcal, BIDWM providing 38 gProtein 840kcal in two servings,if pt can drink both. 2. Consider Fam BID Fruit Punch flavor for promoting wound healing Expected Outcomes/Goals: Improved appetite, healed wounds, gradual wt gain. Plan discussed with: Patient, Other (RN) CC Plasma Assessment Blood Product Administration S: [id number] TONG BLUNT MD Sep 22, 2024 20:52
[2024-09-22] MEDS: EPOETIN ALFA-EPBX 10,000 UNIT/1ML VIAL SC ONE (21:00)
[2024-09-23] VITALS (14 sets, daily range): BP systolic 106–124; BP diastolic 72–79; PULSE 70–79; RESP 16–19; TEMP 97–98.4; O2SAT 95–100
--- NOTE | 2024-09-23 10:55 | DVHPN2 ---
Progress Note Date Seen: Sep 23, 2024 Has the PT tested + for MRSA If YES, has PT been informed?: No Medical Necessity Reason Pt with a Central, PICC or Fol: No Subjective Patient reports: No new complaints Other Systems: Patient seen and examined by myself today in follow-up Objective vital signs Vital Sign Date Time Temp Pulse Resp B/P (MAP) Pulse Ox O2 Delivery O2 Flow Rate FiO2 09/23/24 08:30 97.2 70 16 106/79 (88) 100 97.2 09/23/24 06:21 Nasal Cannula* 2 28 Total Intake and Output 09/22/24 09/22/24 09/23/24 15:00 23:00 07:00 Intake Total 100 ml 100 ml Balance 100 ml 100 ml medications Current Medications Medications Dose Ordered Sig/Cameron Route Start Time Stop Time Status Last Admin Dose Admin Ondansetron HCl 4 mg Q4HP PRN IV 09/13/24 14:00 Nitroglycerin 0.4 mg Q5MINP PRN SL 09/13/24 14:00 Acetaminophen 650 mg Q6HP PRN PO 09/13/24 22:00 Midodrine 5 mg TID@0600,1200,1800 PO 09/15/24 06:00 09/23/24 05:29 5 MG Albuterol 2.5 mg Q8HR NEB 09/15/24 14:00 09/23/24 06:21 2.5 MG Ipratropium [place] 0.5 mg Q8HR NEB 09/15/24 08:45 09/23/24 06:21 0.5 MG Diagnostic Test (Pha) 1 strip Q6HR 09/15/24 12:00 09/23/24 05:29 1 STRIP Guaifenesin/ Dextromethorphan 10 ml Q4HP PRN PO 09/16/24 03:15 09/19/24 19:49 10 ML Metronidazole 100 ml @ 100 mls/hr Q8HR IV 09/16/24 09:15 09/23/24 05:27 100 MLS/HR Doxycycline Hyclate 100 ml @ 50 mls/hr Q12H IV 09/16/24 20:45 09/23/24 08:58 50 MLS/HR Enteral Nutritional Formula 28.8 gm BIDWM PO 09/18/24 18:00 09/23/24 08:00 28.8 GM Enteral Nutritional Formula 240 ml BIDWM PO 09/18/24 18:00 09/23/24 08:00 240 ML Pantoprazole Sodium 40 mg BID IV 09/19/24 10:00 09/23/24 08:57 40 MG Sucralfate 1 gm BID@0600,2200 PO 09/19/24 22:00 09/23/24 05:28 1 GM Saccharomyces Boulardii 250 mg DAILY PO 09/19/24 11:10 09/23/24 08:58 250 MG Calcium Acetate 667 mg TIDWMEALS PO 09/22/24 12:00 09/23/24 08:58 667 MG Examination: LUNGS:Normal, CVS:Normal, MSK:Normal laboratory and microbiology Laboratory Tests 09/22/24 06:32 Test 09/22/24 06:32 Range/Units Serum Glucose 80 74-106 mg/dL Microbiology Date/Time Source Procedure Growth Status 09/15/24 08:00 Stool Clostridium difficile Toxin Assay - Final Complete 09/14/24 11:27 Nose MRSA Screen - Final Complete 09/13/24 14:12 Blood Blood Culture - Final NO GROWTH AFTER 5 DAYS OF INCUBATION. Complete Problem List/Assessment/Plan Problem List/Assessment/Plan End-stage renal disease on hemodialysis via CVC Acute hypoxic respiratory failure s/p septic Shock Chronic systolic Congestive heart failure, EF 40% Anemia due to chronic kidney disease Hyperphosphatemia HCV positive Hypotension Recommendations Hemodialysis tomorrow Epogen 78539 subQ 3 times a week Albumin 25% p.r.n. hemodialysis IV antibiotics Calcium acetate with meals Renal diet Midodrine 10 mg p.o. t.i.d. We will continue to follow up Plan discussed with: Patient My Orders My Orders Orders - RICARDO ENCINAS MD Procedure Category Date Status Time Hemodialysis Orders ORDERS 09/24/24 Transmitted 07:00 Dialysis Nursing NELLIE 09/24/24 In Process Message 07:00 Heparin Sodium PHA 09/24/24 Logged (Porcine) 07:00 Heparin Sodium PHA 09/24/24 Logged (Porcine) 07:00 Sodium Chloride 0.9% PHA 09/24/24 Logged 07:00 Document Fluid Input NELLIE 09/24/24 In Process And Outpu 07:00 Epoetin Emery-Epbx PHA 09/24/24 Logged (Retacrit) 21:00 Midodrine Tablet PHA 09/23/24 Transmitted (Proamatine Tablet) 11:00 Dietary Evaluation Review Comments: 1. Nepro PO 19g Pro, 420kcal, BIDWM providing 38 gProtein 840kcal in two servings,if pt can drink both. 2. Consider Fam BID Fruit Punch flavor for promoting wound healing Expected Outcomes/Goals: Improved appetite, healed wounds, gradual wt gain. CC Plasma Assessment Blood Product Administration S: [id number] RICARDO ENCINAS MD Sep 23, 2024 10:55
[2024-09-23] MEDS ORDERED: ALBUMIN 25% 100 ML IV PRN (11:00)
[2024-09-23] MEDS: MIDODRINE HCL 10 MG TAB PO SCH (11:33)
--- NOTE | 2024-09-23 16:04 | DVHPNRES ---
Progress Note Date Seen: Sep 23, 2024 Resident Creating Document: CONNOR ALBERTS RESIDENT Has the PT tested + for MRSA If YES, has PT been informed?: No Medical Necessity Reason Pt with a Central, PICC or Fol: No Subjective Review of Systems This is a 59-year-old male with a past medical history of cerebrovascular accident, end-stage renal disease on hemodialysis (Saturday, Saturday, Saturday), hyperlipidemia, and hypertension, who presented with shortness of breath since the prior day. The patient was at home with his daughter and was on 2 L nasal cannula, which he increased to 4 L due to worsening dyspnea. Due to severe respiratory distress, he required BiPAP upon arrival to the emergency department. On evaluation, the patient was found to be hypotensive and was started on norepinephrine drip (Levo). He also had elevated lactate levels (3.2) concerning for sepsis. Hemoglobin had trended down from 10.2 to 7.6 since his last admission, and he was noted to have ESRD secondary to autosomal dominant polycystic kidney disease. Chest X-ray revealed cardiomegaly and signs of heart failure. Creatinine was elevated at 5.13 with a GFR of 10.2. No fever, chills, or signs of infection reported at the time. The patient denied GI bleeding and had no black or bloody stools, nausea, or vomiting. The patient previously had a bloodstream infection with gram-positive cocci (Staphylococcus hemolyticus) in July 2024 and had since been monitored with negative surveillance cultures. CT of the abdomen revealed innumerable bilateral calcified cystic kidney masses, consistent with polycystic kidney disease. Patient was ICU status for sepsis workup and hemodynamic support. Blood cultures and ceftriaxone + azithromycin were initiated. A triple lumen central line was placed for vasopressor administration. He is also anemic, likely secondary to chronic disease, and received one unit of PRBCs. HD done 09/14/24 09/15/24: wbc is trending high, levophed 10 mcg, patient was wheezing, solumedrol once, breathing treatments PRN, ceftriaxone and AZT was changed to meropenem + doxycycline, HD today, continue vancomycin, patient is also having diarrhea 09/16/24: wbc is trending high, patient is having multiples diarrheas, vanco and doxycicline DC, metronidazole added, levophed off since 8 am, patient will need levophed for HD, labile BPs 09/17/24: wbc is trending down, his bowel movements are more solid today, ID continued doxycicline and add vanco PO, levophed is off, pending HD today 09/21/24: wbc trending down, no fevers, no diarrhea, dc meropenem dc vanco PO, downgrade from ICU cultures negative 09/22/24: normal wbc, HD without complications, patient has stroke sequelae, was previously assessed by PT which considered home health PT but talking with the daughter she stated that in the previous admission, HH services was given with no progress in his rehab, new PT re-evaluation is ordered for possible transfer to SNF 09/23/24: PT reevaluation, patient walked, SNF recommended, pending authorization Objective vital signs Vital Sign Date Time Temp Pulse Resp B/P (MAP) Pulse Ox O2 Delivery O2 Flow Rate FiO2 09/23/24 13:43 74 16 100 09/23/24 13:38 Nasal Cannula* 2 28 09/23/24 12:30 97.4 124/79 (94) 97.4 Total Intake and Output 09/22/24 09/22/24 09/23/24 15:00 23:00 07:00 Intake Total 100 ml 100 ml Balance 100 ml 100 ml medications Current Medications Medications Dose Ordered Sig/Cameron Route Start Time Stop Time Status Last Admin Dose Admin Ondansetron HCl 4 mg Q4HP PRN IV 09/13/24 14:00 Nitroglycerin 0.4 mg Q5MINP PRN SL 09/13/24 14:00 Acetaminophen 650 mg Q6HP PRN PO 09/13/24 22:00 Albuterol 2.5 mg Q8HR NEB 09/15/24 14:00 09/23/24 13:38 2.5 MG Ipratropium [place] 0.5 mg Q8HR NEB 09/15/24 08:45 09/23/24 13:38 0.5 MG Diagnostic Test (Pha) 1 strip Q6HR 09/15/24 12:00 09/23/24 11:33 1 STRIP Guaifenesin/ Dextromethorphan 10 ml Q4HP PRN PO 09/16/24 03:15 09/19/24 19:49 10 ML Metronidazole 100 ml @ 100 mls/hr Q8HR IV 09/16/24 09:15 09/23/24 13:44 100 MLS/HR Doxycycline Hyclate 100 ml @ 50 mls/hr Q12H IV 09/16/24 20:45 09/23/24 08:58 50 MLS/HR Enteral Nutritional Formula 28.8 gm BIDWM PO 09/18/24 18:00 09/23/24 08:00 28.8 GM Enteral Nutritional Formula 240 ml BIDWM PO 09/18/24 18:00 09/23/24 08:00 240 ML Pantoprazole Sodium 40 mg BID IV 09/19/24 10:00 09/23/24 08:57 40 MG Sucralfate 1 gm BID@0600,2200 PO 09/19/24 22:00 09/23/24 05:28 1 GM Saccharomyces Boulardii 250 mg DAILY PO 09/19/24 11:10 09/23/24 08:58 250 MG Calcium Acetate 667 mg TIDWMEALS PO 09/22/24 12:00 09/23/24 11:33 667 MG Midodrine 10 mg TID@0600,1200,1800 PO 09/23/24 12:00 09/23/24 11:33 10 MG Examination General: Alert,nasal canula Cardiovascular: regular rhythm, no mrmurs, no gallops Respiratory: Bilateral breath sounds, diminished at bases, no wheezes GI: Soft, tender in lower quadrant, no hepatosplenomegaly Extremities: No edema, PermCath in place Neuro: Alert, no focal deficits, patient is able to sit and with help patient is able to walk few steps Skin: No rash, no signs of bleeding laboratory and microbiology Laboratory Tests 09/22/24 06:32 Test 09/22/24 06:32 Range/Units Serum Glucose 80 74-106 mg/dL Microbiology Date/Time Source Procedure Growth Status 09/15/24 08:00 Stool Clostridium difficile Toxin Assay - Final Complete 09/14/24 11:27 Nose MRSA Screen - Final Complete 09/13/24 14:12 Blood Blood Culture - Final NO GROWTH AFTER 5 DAYS OF INCUBATION. Complete Problem List/Assessment/Plan Problem List/Assessment/Plan Acute on chronic hypoxic respiratory failure likely secondary to fluid overload Acute on chronic HFrEF Septic shock, likely from unknown source (prior bacteremia with gram-positive cocci) Possible PNA gram+/gram - improving Possible gastroenteritis: diarrhea improving ESRD on hemodialysis (MWF), likely volume overloaded Acute on chronic anemia likely secondary to CKD Polycystic kidney disease History of CVA Hyperlipidemia Small bilateral pleural effusions and ascites Chronic Hep C infection Stroke sequelae Deconditioning ECHO: Technically good study. Undetermined rhythm. Biatrial enlargement. Mild LV enlargement. Aortic root enlargement. Right ventricular outflow tract enlargement. Mild mitral annular calcification the aortic valve appears to be sclerotic. There is calcification of the right and left coronary cusp. Adequate excursion noted without significant stenosis. The tricuspid and pulmonic appear to be structurally normal. Left ventricular systolic performance is diminished. EF is approximately 40-45% with global hypokinesis. There is dyssynchrony between the apical and septal segments due to a interventricular conduction delay. There is trace mitral insufficiency mild tricuspid regurgitation. Moderate aortic insufficiency. Trace pulmonic insufficiency. No pericardial effusion masses or vegetations discernible. 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 Nepro PO 19g Pro, 420kcal, BIDWM providing 38 gProtein 840kcal in two servings,if pt can drink both. 2. Consider Fam BID Fruit Punch flavor for promoting wound healing Expected Outcomes/Goals: Improved appetite, healed wounds, gradual wt gain. CC Plasma Assessment Blood Product Administration S: [id number] CONNOR ALBERTS RESIDENT Sep 23, 2024 16:03
--- NOTE | 2024-09-23 20:11 | DVHPN2 ---
Progress Note - Dictate Date Seen: Sep 23, 2024 Has the PT tested + for MRSA If YES, has PT been informed?: No Medical Necessity Reason Pt with a Central, PICC or Fol: No Subjective Patient seen and examined at bedside. Remains on supplemental oxygen Overnight events reviewed. vital signs Vital Sign Date Time Temp Pulse Resp B/P (MAP) Pulse Ox O2 Delivery O2 Flow Rate FiO2 09/23/24 17:00 97.5 79 17 106/73 (84) 95 97.5 09/23/24 13:38 Nasal Cannula* 2 28 Total Intake and Output 09/22/24 09/22/24 09/23/24 15:00 23:00 07:00 Intake Total 100 ml 100 ml Balance 100 ml 100 ml medications Current Medications Medications Dose Ordered Sig/Cameron Route Start Time Stop Time Status Last Admin Dose Admin Ondansetron HCl 4 mg Q4HP PRN IV 09/13/24 14:00 Nitroglycerin 0.4 mg Q5MINP PRN SL 09/13/24 14:00 Acetaminophen 650 mg Q6HP PRN PO 09/13/24 22:00 Albuterol 2.5 mg Q8HR NEB 09/15/24 14:00 09/23/24 13:38 2.5 MG Ipratropium [place] 0.5 mg Q8HR NEB 09/15/24 08:45 09/23/24 13:38 0.5 MG Diagnostic Test (Pha) 1 strip Q6HR 09/15/24 12:00 09/23/24 18:29 1 STRIP Guaifenesin/ Dextromethorphan 10 ml Q4HP PRN PO 09/16/24 03:15 09/19/24 19:49 10 ML Metronidazole 100 ml @ 100 mls/hr Q8HR IV 09/16/24 09:15 09/23/24 13:44 100 MLS/HR Doxycycline Hyclate 100 ml @ 50 mls/hr Q12H IV 09/16/24 20:45 09/23/24 20:04 50 MLS/HR Enteral Nutritional Formula 28.8 gm BIDWM PO 09/18/24 18:00 09/23/24 18:00 28.8 GM Enteral Nutritional Formula 240 ml BIDWM PO 09/18/24 18:00 09/23/24 18:00 240 ML Pantoprazole Sodium 40 mg BID IV 09/19/24 10:00 09/23/24 08:57 40 MG Sucralfate 1 gm BID@0600,2200 PO 09/19/24 22:00 09/23/24 05:28 1 GM Saccharomyces Boulardii 250 mg DAILY PO 09/19/24 11:10 09/23/24 08:58 250 MG Calcium Acetate 667 mg TIDWMEALS PO 09/22/24 12:00 09/23/24 18:28 667 MG Midodrine 10 mg TID@0600,1200,1800 PO 09/23/24 12:00 09/23/24 18:29 10 MG objective Gen.: Patient lying in bed in no apparent distress. On supplemental oxygen. Head: Normocephalic, atraumatic. Eyes: EOMI/PERRLA. Ears: Normal hearing. Normal anatomy. Neck/trachea: Trachea midline, supple. Nose: Normal external anatomy. Mouth: Moist mucous membranes. Chest: Decreased air entry bilaterally. No wheezing or rhonchi. Cardiovascular: Positive S1, positive S2. Regular rate and rhythm. Abdomen: Positive bowel sounds in all 4 quadrants. Soft, non-tender, non- distended. : Deferred. Rectal: Deferred. Skin: Warm, dry. Intact. Extremities: 2+ radial pulses bilaterally. No lower extremity edema. Neuro: Awake, alert, oriented x3. No gross motor or sensory deficits. Cranial nerves II through XII intact. Gait not assessed. laboratory and microbiology Laboratory Tests 09/22/24 06:32 Test 09/22/24 06:32 Range/Units Serum Glucose 80 74-106 mg/dL Assessment/Plan Impression: Acute hypoxic respiratory failure Dependence on supplemental oxygen Chronic obstructive pulmonary disease, stable Anemia Leukocytosis Thrombocytopenia Lactic acidosis End-stage renal disease, on hemodialysis Congestive heart failure Shock, septic Pneumonia, likely gram negative Ascites Small bilateral pleural effusions Atelectasis Hepatitis C Events: Remains on supplemental oxygen, 2 LPM NC Taper O2 as tolerated No distress Continue midodrine for blood pressure support Monitor hemoglobin Remains off pressors since 8 AM on 09/16/24, hemodynamically stable. Monitor Ins and Outs Monitor renal function and electrolytes. Monitor hemodynamics during HD. Incentive spirometry Continue antibiotics WBC within normal limits ID recommendations appreciated Protonix for GI prophylaxis Plan for SNF placement Labs and imaging reviewed. Rest of plan as noted below. Plan: Supplemental oxygen Titrate to keep O2 sats above 92%. Pressors if necessary for hemodynamic support Titrate to keep mean arterial pressure greater than 65 mmHg. Wound care Continue antibiotics Follow up cultures Incentive spirometry Monitor WBC Monitor platelets Monitor lactic acid Monitor hemoglobin Maintain euvolemia Monitor renal function. Monitor electrolytes. Supplement as necessary. Monitor ins and outs. Avoid volume overload GI prophylaxis Protonix. Prognosis: Poor given patient's multiple co-morbidities. Rest of plan per hospitalist and other consultants. Thank you, Dr. Pitts, for allowing me to participate in this patient's care. Further recommendations will depend on the patient's clinical course. Please do not hesitate to contact me if you have any questions or concerns. This medical document was created using an electronic medical record system with [employer] dictation system. Although these documentations are being carefully reviewed, there may still be some phonetic and typographical changes. The errors are purely typographical, due to imperfection on the software program, and do not reflect any compromise in the patient's medical care. Dietary Evaluation Review Comments: 1. Nepro PO 19g Pro, 420kcal, BIDWM providing 38 gProtein 840kcal in two servings,if pt can drink both. 2. Consider Fam BID Fruit Punch flavor for promoting wound healing Expected Outcomes/Goals: Improved appetite, healed wounds, gradual wt gain. Plan discussed with: Patient, Other (SUSANNAH Valle) CC Plasma Assessment Blood Product Administration S: [id number] TONG BLUNT MD Sep 23, 2024 20:11
[2024-09-24] VITALS (13 sets, daily range): BP systolic 97–149; BP diastolic 56–102; PULSE 73–85; RESP 18–20; TEMP 97.4–98.2; O2SAT 94–100
[2024-09-24] MEDS ORDERED: SODIUM CHL 0.9% 1000 ML BAG XX ONE (07:00)
--- NOTE | 2024-09-24 14:11 | DVHPN2 ---
Progress Note Date Seen: Sep 24, 2024 Has the PT tested + for MRSA If YES, has PT been informed?: No Medical Necessity Reason Pt with a Central, PICC or Fol: No Subjective Patient reports: No new complaints Other Systems: Patient seen and examined by myself today in follow-up Patient examined hemodialysis, blood pressure stable Objective vital signs Vital Sign Date Time Temp Pulse Resp B/P (MAP) Pulse Ox O2 Delivery O2 Flow Rate FiO2 09/24/24 13:00 97.4 73 18 132/82 (99) 100 97.4 09/24/24 10:00 Nasal Cannula* 2 28 Total Intake and Output 09/23/24 09/23/24 09/24/24 15:00 23:00 07:00 Intake Total 200 ml 1100 ml 200 ml Balance 200 ml 1100 ml 200 ml medications Current Medications Medications Dose Ordered Sig/Cameron Route Start Time Stop Time Status Last Admin Dose Admin Ondansetron HCl 4 mg Q4HP PRN IV 09/13/24 14:00 Nitroglycerin 0.4 mg Q5MINP PRN SL 09/13/24 14:00 Acetaminophen 650 mg Q6HP PRN PO 09/13/24 22:00 Albuterol 2.5 mg Q8HR NEB 09/15/24 14:00 09/24/24 07:32 2.5 MG Ipratropium [place] 0.5 mg Q8HR NEB 09/15/24 08:45 09/24/24 07:32 0.5 MG Diagnostic Test (Pha) 1 strip Q6HR 09/15/24 12:00 09/24/24 11:26 1 STRIP Guaifenesin/ Dextromethorphan 10 ml Q4HP PRN PO 09/16/24 03:15 09/19/24 19:49 10 ML Metronidazole 100 ml @ 100 mls/hr Q8HR IV 09/16/24 09:15 09/24/24 05:14 100 MLS/HR Doxycycline Hyclate 100 ml @ 50 mls/hr Q12H IV 09/16/24 20:45 09/24/24 08:27 50 MLS/HR Enteral Nutritional Formula 28.8 gm BIDWM PO 09/18/24 18:00 09/24/24 08:27 28.8 GM Enteral Nutritional Formula 240 ml BIDWM PO 09/18/24 18:00 09/24/24 08:27 240 ML Pantoprazole Sodium 40 mg BID IV 09/19/24 10:00 09/24/24 08:26 40 MG Sucralfate 1 gm BID@0600,2200 PO 09/19/24 22:00 09/24/24 05:14 1 GM Saccharomyces Boulardii 250 mg DAILY PO 09/19/24 11:10 09/24/24 08:26 250 MG Calcium Acetate 667 mg TIDWMEALS PO 09/22/24 12:00 09/24/24 11:26 667 MG Midodrine 10 mg TID@0600,1200,1800 PO 09/23/24 12:00 09/23/24 18:29 10 MG laboratory and microbiology Laboratory Tests 09/22/24 06:32 Test 09/22/24 06:32 Range/Units Serum Glucose 80 74-106 mg/dL Microbiology Date/Time Source Procedure Growth Status 09/15/24 08:00 Stool Clostridium difficile Toxin Assay - Final Complete 09/14/24 11:27 Nose MRSA Screen - Final Complete 09/13/24 14:12 Blood Blood Culture - Final NO GROWTH AFTER 5 DAYS OF INCUBATION. Complete Problem List/Assessment/Plan Problem List/Assessment/Plan End-stage renal disease on hemodialysis via CVC Acute hypoxic respiratory failure s/p septic Shock Chronic systolic Congestive heart failure, EF 40% Anemia due to chronic kidney disease Hyperphosphatemia HCV positive Hypotension Recommendations Continue with UF 2-3 L as tolerated Epogen 82863 subQ 3 times a week Albumin 25% p.r.n. hemodialysis IV antibiotics Calcium acetate with meals Renal diet Midodrine 10 mg p.o. t.i.d. We will continue to follow up Plan discussed with: Patient Dietary Evaluation Review Comments: 1. Nepro PO 19g Pro, 420kcal, BIDWM providing 38 gProtein 840kcal in two servings,if pt can drink both. 2. Consider Fam BID Fruit Punch flavor for promoting wound healing Expected Outcomes/Goals: Improved appetite, healed wounds, gradual wt gain. CC Plasma Assessment Blood Product Administration S: [id number] RICARDO ENCINAS MD Sep 24, 2024 14:11
[2024-09-24] MEDS: ACETAMINOPHEN 325 MG TAB PO PRN (14:53)
--- NOTE | 2024-09-24 19:38 | DVHPN2 ---
Progress Note - Dictate Date Seen: Sep 24, 2024 Has the PT tested + for MRSA If YES, has PT been informed?: No Medical Necessity Reason Pt with a Central, PICC or Fol: No Subjective Patient seen and examined at bedside. Remains on supplemental oxygen Overnight events reviewed. vital signs Vital Sign Date Time Temp Pulse Resp B/P (MAP) Pulse Ox O2 Delivery O2 Flow Rate FiO2 09/24/24 17:00 97.6 85 18 97/56 (70) 94 97.6 09/24/24 10:00 Nasal Cannula* 2 28 Total Intake and Output 09/23/24 09/23/24 09/24/24 15:00 23:00 07:00 Intake Total 200 ml 1100 ml 200 ml Balance 200 ml 1100 ml 200 ml objective Gen.: Patient lying in bed in no apparent distress. On supplemental oxygen. Head: Normocephalic, atraumatic. Eyes: EOMI/PERRLA. Ears: Normal hearing. Normal anatomy. Neck/trachea: Trachea midline, supple. Nose: Normal external anatomy. Mouth: Moist mucous membranes. Chest: Decreased air entry bilaterally. No wheezing or rhonchi. Cardiovascular: Positive S1, positive S2. Regular rate and rhythm. Abdomen: Positive bowel sounds in all 4 quadrants. Soft, non-tender, non- distended. : Deferred. Rectal: Deferred. Skin: Warm, dry. Intact. Extremities: 2+ radial pulses bilaterally. No lower extremity edema. Neuro: Awake, alert, oriented x3. No gross motor or sensory deficits. Cranial nerves II through XII intact. Gait not assessed. laboratory and microbiology Laboratory Tests 09/22/24 06:32 Test 09/22/24 06:32 Range/Units Serum Glucose 80 74-106 mg/dL Assessment/Plan Impression: Acute hypoxic respiratory failure Dependence on supplemental oxygen Chronic obstructive pulmonary disease, stable Anemia Leukocytosis Thrombocytopenia Lactic acidosis End-stage renal disease, on hemodialysis Congestive heart failure Shock, septic Pneumonia, likely gram negative Ascites Small bilateral pleural effusions Atelectasis Hepatitis C Events: Remains on supplemental oxygen, 2 LPM NC Taper O2 as tolerated No distress Remains off pressors since 8 AM on 09/16/24, hemodynamically stable. Continue midodrine for blood pressure support Monitor hemoglobin Pt to undergo hemodialysis this PM. Monitor Ins and outs Monitor renal function and electrolytes. Monitor hemodynamics during HD. Nephrology recs appreciated Incentive spirometry Continue antibiotics ID recommendations appreciated Protonix for GI prophylaxis Plan for SNF placement at [place] Labs and imaging reviewed. Rest of plan as noted below. Plan: Supplemental oxygen Titrate to keep O2 sats above 92%. Pressors if necessary for hemodynamic support Titrate to keep mean arterial pressure greater than 65 mmHg. Wound care Continue antibiotics Follow up cultures Incentive spirometry Monitor WBC Monitor platelets Monitor lactic acid Monitor hemoglobin Maintain euvolemia Monitor renal function. Monitor electrolytes. Supplement as necessary. Monitor ins and outs. Avoid volume overload GI prophylaxis Protonix. Prognosis: Poor given patient's multiple co-morbidities. Rest of plan per hospitalist and other consultants. Thank you, Dr. Pitts, for allowing me to participate in this patient's care. Further recommendations will depend on the patient's clinical course. Please do not hesitate to contact me if you have any questions or concerns. This medical document was created using an electronic medical record system with [employer] dictation system. Although these documentations are being carefully reviewed, there may still be some phonetic and typographical changes. The errors are purely typographical, due to imperfection on the software program, and do not reflect any compromise in the patient's medical care. Dietary Evaluation Review Comments: 1. Nepro PO 19g Pro, 420kcal, BIDWM providing 38 gProtein 840kcal in two servings,if pt can drink both. 2. Consider Fam BID Fruit Punch flavor for promoting wound healing Expected Outcomes/Goals: Improved appetite, healed wounds, gradual wt gain. Plan discussed with: Patient, Other (SUSANNAH Valle) CC Plasma Assessment Blood Product Administration S: [id number] TONG BLUNT MD Sep 24, 2024 19:38
[2024-09-24] MEDS ORDERED: EPOETIN ALFA-EPBX 10,000 UNIT/1ML VIAL SC ONE (21:00)
--- NOTE | 2024-09-24 23:34 | DVHDSRES ---
Discharge Summary Date of Admission Resident Creating Document: CONNOR ALBERTS RESIDENT Sep 13, 2024 at 13:50 Date of Discharge: Sep 24, 2024 Admitting Diagnosis Septic shock Labs/Diagnostic Data: Laboratory Results Test 09/24/24 18:10 09/22/24 06:32 09/21/24 07:09 09/19/24 13:09 POC Glucose 90 mg/dl (70-106) White Blood Count 10.8 10^3/uL (4.4-10.8) Red Blood Count 3.35 10^6/uL (4.5-5.90) Hemoglobin 10.0 g/dL (13.5-17.5) Hematocrit 32.2 % (41.0-53.0) Mean Corpuscular Volume 95.9 fL (80.0-100.0) Mean Corpuscular Hemoglobin 29.7 pg (28.0-32.0) Mean Corpuscular Hemoglobin Concent 30.9 g/dL (32.0-36.0) Red Cell Distribution Width 22.4 % (11.8-14.3) Platelet Count 120 10^3/uL (140-450) Mean Platelet Volume 8.1 fL (6.9-10.8) Neutrophils (%) (Auto) 67.3 % (37.0-80.0) Lymphocytes (%) (Auto) 19.2 % (10.0-50.0) Monocytes (%) (Auto) 8.0 % (0.0-12.0) Eosinophils (%) (Auto) 4.9 % (0.0-7.0) Basophils (%) (Auto) 0.6 % (0.0-2.0) Neutrophils # (Auto) 7.3 10 ^3/uL (1.6-8.6) Lymphocytes # (Auto) 2.1 10 ^3/uL (0.4-5.4) Monocytes # (Auto) 0.9 10 ^3/uL (0-1.3) Eosinophils # (Auto) 0.5 10 ^3/uL (0-0.8) Basophils # (Auto) 0.1 10 ^3/uL (0-0.2) Nucleated Red Blood Cells 0.4 % Sodium Level 136 mmol/L (136-145) Potassium Level 4.1 mmol/L (3.5-5.1) Chloride Level 102 mmol/L (98-107) Carbon Dioxide Level 25 mmol/L (20-31) Anion Gap 9 (5-15) Blood Urea Nitrogen 49 mg/dL (9-23) Creatinine 5.79 mg/dL (0.700-1.30) Glomerular Filtration Rate Calc 11 mL/min (>90) BUN/Creatinine Ratio 8.5 (10.0-20.0) Serum Glucose 80 mg/dL (74-106) Calcium Level 7.9 mg/dL (8.7-10.4) Total Bilirubin 0.7 mg/dL (0.2-1.0) Aspartate Amino Transferase (AST) 17 U/L (13-40) Alanine Aminotransferase (ALT) < 9 U/L (7-40) Alkaline Phosphatase 79 U/L (46-116) Total Protein 6.0 g/dL (5.7-8.2) Albumin 2.2 g/dL (3.2-4.8) Phosphorus Level 5.1 mg/dL (2.4-5.1) Magnesium Level 1.9 mg/dL (1.6-2.6) Lactic Acid Level 1.5 mmol/L (0.4-2.0) Test 09/16/24 11:05 09/16/24 03:35 09/14/24 11:27 09/13/24 13:20 Random Vancomycin Level 16.1 ug/mL (5-10) Differential Total Cells Counted 100.0 (100) Neutrophils % (Manual) 93 (37.0-80.0) Band Neutrophils % (Manual) 0 Lymphocytes % (Manual) 5 (10.0-50.0) Monocytes % (Manual) 2 (0-12) Eosinophils % (Manual) 0 (0-7) Basophils % (Manual) 0 (0.0-2.0) Metamyelocytes % (manual) 0 Myelocytes % (Manual) 0 Promyelocytes % (Manual) 0 Blast Cells % (Manual) 0 Reactive Lymphocytes 0 Platelet Estimate Decreased Large Platelets Few C-Reactive Protein High Sensitivity 17.14 mg/dL (<1.0) Influenza Type A Antigen Negative (Negative) Influenza Type B Antigen Negative (Negative) SARS-CoV-2 Antigen (Rapid) Negative (NEGATIVE) Blood Gas Specimen Type Arterial Blood Gas Sample Site Right radial Blood Gas Patient Temperature 37.0 Arterial Blood Date Drawn [id number] Arterial Blood pH 7.460 (7.350-7.450) Arterial Blood Partial Pressure CO2 36.7 mmHg (35.0-48.0) Arterial Blood Partial Pressure O2 66.2 mmHg (83.0-108.0) Arterial Blood HCO3 25.5 mmol/L (21.0-28.0) Arterial Blood Oxygen Saturation 93.0 % (94.0-98.0) Arterial Blood Base Excess 1.7 mmol/L (-2.0-3.0) Arterial Blood Oxyhemoglobin 91.8 % (94.0-98.0) Arterial Blood Carboxyhemoglobin 1.0 % (0.5-1.5) Arterial Blood Methemoglobin 0.3 % (0.0-1.5) Gallo Test Yes Blood Gas Total Hemoglobin 9.40 g/dL (13.5-17.5) Blood Gas Set Respiration Rate 12.0 Blood Gas Modality Mask - bipap FiO2 % 35.0 Blood Gas EPAP 5 Blood Gas IPAP 12 Test 09/13/24 13:11 09/13/24 11:13 Hepatitis A IgM Antibody Negative Hepatitis B Surface Antigen Negative (Negative) Hepatitis B Core IgM Antibody Negative (Negative) Hepatitis C Antibody Reactive (Negative) Smudge Cells 3 /100 WBC Troponin I High Sensitivity 6 ng/L (</=54) B-Type Natriuretic Peptide 103.23 pg/mL (0-100) Other Laboratory Tests 09/22/24 06:32 Brief Hx & Hospital Course: A 59-year-old male with PMHx of CVA, ESRD on HD (MWF), hyperlipidemia, hypertension, polycystic kidney disease, chronic anemia, and chronic Hep C infection was admitted with shortness of breath and hypotension. He was initially found to be in septic shock and started on norepinephrine. BiPAP was initiated in the ED due to respiratory distress. Labs showed Hgb 10.2 trending down to 7.6, creatinine 5.13 with GFR 10.2, and WBC trending up. He was diagnosed with acute on chronic hypoxic respiratory failure likely secondary to fluid overload, septic shock likely from prior gram-positive bacteremia, acute on chronic HFrEF, and possible gastroenteritis with diarrhea. Blood cultures were obtained and broad-spectrum antibiotics (meropenem, doxycycline, vancomycin, metronidazole) were started. CT abdomen showed innumerable bilateral calcified cystic kidney masses consistent with ADPKD. Echo showed biatrial and mild LV enlargement, diminished LVEF 4045%, trace mitral/tricuspid regurgitation, and moderate aortic insufficiency. Patient was ICU-level care initially for sepsis and hemodynamic instability, requiring vasopressors and respiratory support. Over the following days, WBC trended down, fever resolved, bowel movements normalized. He completed antibiotics with improvement. Midodrine was started for BP support. He underwent regular HD with no complications. He received PRBCs for anemia. Wound care was done for rectal excoriations. He was evaluated by PT and deemed appropriate for SNF due to deconditioning and stroke-related functional impairment. General: Alert,nasal canula Cardiovascular: regular rhythm, no mrmurs, no gallops Respiratory: Bilateral breath sounds, diminished at bases, no wheezes GI: Soft, tender in lower quadrant, no hepatosplenomegaly Extremities: No edema, PermCath in place Neuro: Alert, no focal deficits, patient is able to sit and with help patient is able to walk few steps Skin: No rash, no signs of bleeding Case discussed with Dr Sabillon Consults/Reason for consult nephrology esrd, pulmonology and critical care: icu status, ID due to septic shock Operations or Procedures Radiation Dose Information: CT Dose: CTDI volume is 19.55 mGy. Dose-length product is 1144.54 mGy*cm FINDINGS: Evaluation of solid organs is limited due to lack of intravenous contrast use. Findings: Lung Bases: Small bilateral pleural effusions. Liver: The liver is normal in size. No focal lesions. Gallbladder and Biliary Tree: Unremarkable Spleen: Unremarkable Pancreas: The pancreas is grossly normal in appearance. Adrenal Glands: Unremarkable Kidneys: Innumerable bilateral calcified cystic masses seen throughout the kidneys. These are too innumerable for characterization. Bladder: Grossly unremarkable for degree of distention. Bowel: The stomach is grossly normal in appearance. Small bowel and colon are normal in caliber and distribution. The appendix is not visualized; however, no secondary findings of acute appendicitis identified. Ascites: Small volume ascites. Lymphadenopathy: No mesenteric, retroperitoneal or periportal lymphadenopathy. Abdominal Wall and Mesentery: Unremarkable. Vasculature: The visualized abdominal aorta is normal in size and caliber. Evaluation of abdominal and pelvic vessels is limited due to lack of intravenous contrast. Pelvic Organs: Unremarkable Musculoskeletal: No aggressive focal bony lesions, acute fractures or dislocation. Soft tissues: Unremarkable IMPRESSION: Innumerable bilateral calcified cystic masses seen throughout the kidneys. These are too innumerable for characterization. Consider lasix renal scan to evaluate for kidney function. Small volume ascites. Small bilateral pleural effusions. Condition at Discharge: Stable Final Diagnosis/Problems List Acute on chronic hypoxic respiratory failure likely secondary to fluid overload Acute on chronic HFrEF Septic shock Possible PNA gram+/gram - improving Possible gastroenteritis: diarrhea improving ESRD on hemodialysis (MWF), likely volume overloaded Acute on chronic anemia likely secondary to CKD Polycystic kidney disease History of CVA Hyperlipidemia Small bilateral pleural effusions and ascites Chronic Hep C infection Stroke sequelae Deconditioning Discharge Disposition: Senior Living Facility Discharge Instruct/Medications Diet: Cardiac 2g Na,low cholest, Renal Activity: Light activity Follow Up/Referral: dc clinic and nephrology and cardiolgoy Medications: see prescription Discharge Statement: "Patient was advised to return to the ER or call 911 if any headaches, dizziness, shortness of breath, chest pain, abdominal pain, bleeding, fevers, or worsening of medical condition. Patient was counseled about treatment plan, medications, possible side effects, patientverbalized understanding. All questions were answered to the best of my ability. This discharge took greater then 30 minutes in planning, reviewing documentation, counseling the patient, and discussing with other team members." ASSESSMENT ASSESSMENT Assessment acute gastroenteritis acute heart failure CONNOR ALBERTS RESIDENT Sep 24, 2024 23:34
--- NOTE | 2024-09-26 17:51 | DVHPN2 ---
Consult Progress Note Date Seen: Sep 18, 2024 Subjective Patient reports: Feels better (no diarrhea on rash , traferred to the floor) Objective vital signs Vital Sign Date Time Temp Pulse Resp B/P (MAP) Pulse Ox O2 Delivery O2 Flow Rate FiO2 09/24/24 17:00 97.6 85 18 97/56 (70) 94 97.6 09/24/24 10:00 Nasal Cannula* 2 28 laboratory and microbiology Laboratory Tests 09/22/24 06:32 Test 09/22/24 06:32 Range/Units Serum Glucose 80 74-106 mg/dL Problem List/Assessment/Plan Problem List/Assessment/Plan Bobby Gamez is a 59-year-old male who presents to ED with chief complaint of progressive dyspnea in functional class IV which started 3 days before his admission, associated with multiple episodes of diarrhea which started four days before his admission. During ER evaluation patient was found to have severe respiratory distress and hypotension, requiring BiPAP and IV vasopressors (norepinephrine). Patient has recent hospitalization secondary to community- acquired pneumonia secondary to Staphylococcus haemolyticus completing IV antibiotic treatment with vancomycin for two weeks (he also presented bacteremia to Staph hominis, considered contaminant). Patient reports end-stage renal disease and is on hemodialysis via a right tunneled hemodialysis catheter (which was recently exchanged on 07/2024), patient does have an AV fistula on right arm which thrills (only 1-month-old). 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 Hepatitis-C. Past surgical history: Placement of tunnel hemodialysis catheter, right AV fistula (has not been used yet, 2-month-old) Family history: Patient lives with daughter. Quit smoking 3 years ago (5 pack- year history of smoking). Denies current tobacco, alcohol and other drug abuse. Allergies: Codeine Home medication: Aspirin 81 mg p.o. daily, atorvastatin 40 mg p.o. daily, cinacalcet 60 mg p.o. daily, clopidogrel 75 mg p.o. daily, ferric citrate, hydrocodone, omeprazole 20 mg p.o. daily, sevelamer. Patient seen and examined at bedside. Patient currently has no new complaints. Presented only to bowel movements with formed stool on 09/17/2024. He is on ICU status due to intermittent requirement of IV vasopressors, currently with no requirement. Physical Exam Patient lying in bed, in no acute distress General: Lucid, afebrile, mucosae are moist Cardiovascular: Normal S1 and S2. No murmurs, gallops or rubs Respiratory: Regular ventilation mechanics, tachypneic. Bilateral rhonchus predominantly in bases, rest of lung auscultation is clear. Currently on nasal cannula 2 liters/minute. Abdomen: Soft, nontender, no organomegaly, normal bowel sounds. Abdominal wall pitting edema MSK/skin: Mobilizes 4 limbs. Skin is dry and warm. AV fistula on right arm with thrill, normal functioning. Has right subclavian tunneled hemodialysis catheter, no signs of infection. Neurological: Oriented in 3 spheres. No motor no sensitive deficits. 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 Previous sputum was positive for Staphylococcus haemolyticus, completed course of IV antibiotics with vancomycin for two weeks post dialysis. Indicated empiric IV antibiotic (meropenem and doxycycline), recommend of course of seven days of both antibiotics. C diff toxin is negative. Have ordered [facility] antigen (is sent out), blood could not be completed. Started patient empirically on p.o. vancomycin and IV metronidazole, patient responded favorably. We will continue p.o. vancomycin for the treatment course of 10-15 days, we will evaluate to stop metronidazole on 09/18/2024 depending on amount of bowel movements. 09/13/2024 Blood cultures negative at the moment Hepatitis antibody is positive, per patient he never received treatment. Recommend obtaining viral load to evaluate requirement of treatment. Should follow as outpatient with Dr. García so as to obtain viral load (can not obtain viral load during hospitalization) Hemodialysis catheter on right subclavian does not press infected, was recently switched in July 2024. Currently patient is off IV vasopressors. Appreciate input of Nephrology and pulmonology specialist. Rest of management per primary team. Patient will have to follow with Dr. García as outpatient, for management of questionable C diff and hepatitis-C. Plan discussed with: Patient Dietary Evaluation Review Comments: 1. Nepro PO 19g Pro, 420kcal, BIDWM providing 38 gProtein 840kcal in two servings,if pt can drink both. 2. Consider Fam BID Fruit Punch flavor for promoting wound healing Expected Outcomes/Goals: Improved appetite, healed wounds, gradual wt gain. CC Plasma Assessment Blood Product Administration S: [id number] CELESTE GARCÍA MD Sep 26, 2024 17:51
--- NOTE | 2024-09-26 18:28 | DVHPN2 ---
Consult Progress Note Date Seen: Sep 21, 2024 Subjective Patient reports: Feels better (working with physican therapy, who is recommending SNF) Objective vital signs Vital Sign Date Time Temp Pulse Resp B/P (MAP) Pulse Ox O2 Delivery O2 Flow Rate FiO2 09/24/24 17:00 97.6 85 18 97/56 (70) 94 97.6 09/24/24 10:00 Nasal Cannula* 2 28 laboratory and microbiology Laboratory Tests 09/22/24 06:32 Test 09/22/24 06:32 Range/Units Serum Glucose 80 74-106 mg/dL Problem List/Assessment/Plan Problem List/Assessment/Plan Bobby Gamez is a 59-year-old male who presents to ED with chief complaint of progressive dyspnea in functional class IV which started 3 days before his admission, associated with multiple episodes of diarrhea which started four days before his admission. During ER evaluation patient was found to have severe respiratory distress and hypotension, requiring BiPAP and IV vasopressors (norepinephrine). Patient has recent hospitalization secondary to community- acquired pneumonia secondary to Staphylococcus haemolyticus completing IV antibiotic treatment with vancomycin for two weeks (he also presented bacteremia to Staph hominis, considered contaminant). Patient reports end-stage renal disease and is on hemodialysis via a right tunneled hemodialysis catheter (which was recently exchanged on 07/2024), patient does have an AV fistula on right arm which thrills (only 1-month-old). 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 Hepatitis-C. Past surgical history: Placement of tunnel hemodialysis catheter, right AV fistula (has not been used yet, 2-month-old) Family history: Patient lives with daughter. Quit smoking 3 years ago (5 pack- year history of smoking). Denies current tobacco, alcohol and other drug abuse. Allergies: Codeine Home medication: Aspirin 81 mg p.o. daily, atorvastatin 40 mg p.o. daily, cinacalcet 60 mg p.o. daily, clopidogrel 75 mg p.o. daily, ferric citrate, hydrocodone, omeprazole 20 mg p.o. daily, sevelamer. Patient seen and examined at bedside. Patient currently has no new complaints. Presented only to bowel movements with formed stool on 09/17/2024. He is on ICU status due to intermittent requirement of IV vasopressors, currently with no requirement. Physical Exam Patient lying in bed, in no acute distress General: Lucid, afebrile, mucosae are moist Cardiovascular: Normal S1 and S2. No murmurs, gallops or rubs Respiratory: Regular ventilation mechanics, tachypneic. Bilateral rhonchus predominantly in bases, rest of lung auscultation is clear. Currently on nasal cannula 2 liters/minute. Abdomen: Soft, nontender, no organomegaly, normal bowel sounds. Abdominal wall pitting edema MSK/skin: Mobilizes 4 limbs. Skin is dry and warm. AV fistula on right arm with thrill, normal functioning. Has right subclavian tunneled hemodialysis catheter, no signs of infection. Neurological: Oriented in 3 spheres. No motor no sensitive deficits. Pupils are isocoric and reactive Assessment Septic shock secondary to community-acquired pneumonia Community-acquired pneumonia (previous sputum culture positive for Staphylococcus hemolyticus) Nonbloody diarrhea - rule out C diff ESRD secondary to autosomal dominant polycystic kidney disease on hemodialysis Saturday, Saturday and Saturday - under apixaban Chronic pain secondary to left clavicular fracture and left 4th and seven rib fracture after mechanical fall in patient with ESRD Hypertension Dyslipidemia History of multiple CVA - residual left-sided weakness - under apixaban Cataract with partial vision loss Positive Hepatitis-C antibody Plan/Recommendation Ordered sputum sample. Previous sputum was positive for Staphylococcus haemolyticus, completed course of IV antibiotics with vancomycin for two weeks post dialysis. Indicated empiric IV antibiotic (meropenem and doxycycline), recommend of course of seven days of both antibiotics. C diff toxin is negative. Have ordered [facility] antigen (is sent out), blood could not be completed. Started patient empirically on p.o. vancomycin and IV metronidazole, patient responded favorably. We will continue p.o. vancomycin for the treatment course of 10-15 days, we will evaluate to stop metronidazole on 09/18/2024 depending on amount of bowel movements. 09/13/2024 Blood cultures negative at the moment Hepatitis antibody is positive, per patient he never received treatment. Recommend obtaining viral load to evaluate requirement of treatment. Should follow as outpatient with Dr. García so as to obtain viral load (can not obtain viral load during hospitalization) Hemodialysis catheter on right subclavian does not press infected, was recently switched in July 2024. Currently patient is off IV vasopressors. Appreciate input of Nephrology and pulmonology specialist. Rest of management per primary team. Patient will have to follow with Dr. García as outpatient, for management of questionable C diff and hepatitis-C. Plan discussed with: Patient Dietary Evaluation Review Comments: 1. Nepro PO 19g Pro, 420kcal, BIDWM providing 38 gProtein 840kcal in two servings,if pt can drink both. 2. Consider Fam BID Fruit Punch flavor for promoting wound healing Expected Outcomes/Goals: Improved appetite, healed wounds, gradual wt gain. CC Plasma Assessment Blood Product Administration S: [id number] CELESTE GARCÍA MD Sep 26, 2024 18:28
== END 2024-09-24 18:38 | DRG 720 ==
LOC: ER 09:47 → EDBD 09:47 → OVERFLOW 13:50 → ICU WEST 09-14 23:46 → TELE-EAST 09-20 10:15
PROVIDERS: ADMIT Student in an Organized Health Care Education/Training Program; ATTEND Student in an Organized Health Care Education/Training Program
PROC: 30233N1 Transfusion of Nonautologous Red Blood Cells into Peripheral Vein, Percutaneous Approach (ICD-10-PCS; principal; 2024-09-13)
PROC: 06HY33Z Insertion of Infusion Device into Lower Vein, Percutaneous Approach (ICD-10-PCS; 2024-09-13)
PROC: 5A09357 Assistance with Respiratory Ventilation, Less than 24 Consecutive Hours, Continuous Positive Airway Pressure (ICD-10-PCS; 2024-09-13)
PROC: 5A1D70Z Performance of Urinary Filtration, Intermittent, Less than 6 Hours Per Day (ICD-10-PCS; 2024-09-13)
PROC: 5A1D70Z Performance of Urinary Filtration, Intermittent, Less than 6 Hours Per Day (ICD-10-PCS; 2024-09-15)
PROC: 5A1D70Z Performance of Urinary Filtration, Intermittent, Less than 6 Hours Per Day (ICD-10-PCS; 2024-09-17)
PROC: 5A1D70Z Performance of Urinary Filtration, Intermittent, Less than 6 Hours Per Day (ICD-10-PCS; 2024-09-19)
PROC: 5A1D70Z Performance of Urinary Filtration, Intermittent, Less than 6 Hours Per Day (ICD-10-PCS; 2024-09-22)
PROC: 5A1D70Z Performance of Urinary Filtration, Intermittent, Less than 6 Hours Per Day (ICD-10-PCS; 2024-09-24)
DX: A41.9 Sepsis, unspecified organism (principal); J96.21 Acute and chronic respiratory failure with hypoxia; R65.21 Severe sepsis with septic shock; I50.23 Acute on chronic systolic (congestive) heart failure; J15.69 Pneumonia due to other Gram-negative bacteria; D69.6 Thrombocytopenia, unspecified; E87.20 Acidosis, unspecified; D63.1 Anemia in chronic kidney disease; E83.39 Other disorders of phosphorus metabolism; I13.2 Hypertensive heart and chronic kidney disease with heart failure and with stage 5 chronic kidney disease, or end stage renal disease; N18.6 End stage renal disease; R18.8 Other ascites; B19.20 Unspecified viral hepatitis C without hepatic coma; E78.5 Hyperlipidemia, unspecified; J44.0 Chronic obstructive pulmonary disease with (acute) lower respiratory infection; G89.29 Other chronic pain; B18.2 Chronic viral hepatitis C; J15.9 Unspecified bacterial pneumonia; K52.9 Noninfective gastroenteritis and colitis, unspecified; Z99.2 Dependence on renal dialysis; Q61.2 Polycystic kidney, adult type; Z68.22 Body mass index [BMI] 22.0-22.9, adult; Z79.01 Long term (current) use of anticoagulants; Z79.899 Other long term (current) drug therapy; Z86.73 Personal history of transient ischemic attack (TIA), and cerebral infarction without residual deficits; Z83.3 Family history of diabetes mellitus; Z99.81 Dependence on supplemental oxygen
CPT/HCPCS: 36415; 36556; 36600; 71045; 74176; 80048; 80053; 80074; 80202; 82565; 82805; 82962; 83605; 83735; 83880; 84100; 84484; 85007; 85025; 85027; 86141; 86850; 86900; 86901; 86920; 87040; 87045; 87081; 87426; 87427; 87493; 87804; 90935; 93005; 93306; 94640; 94660; 96365; 97110; 97163; 97530; 99291; 99292; G0378; J1642; J2185; J2470; J2543; J3490